=== PATIENT | male | born 1960 | race African-American/Black ===

== ENCOUNTER 2017-12-22 15:14 | Inpatient (IN) | payer OTHER ==
[2017-12-22 15:53] LABS: Arterial Blood Carboxyhemoglob 2.1 % (0-1.5); Blood Gas Oxyhemoglobin 93.4 % (94-97); Blood O2 Saturation 96.3 % (92-98.5)
[2017-12-22] MEDS ORDERED: NA CHLORIDE 0.9% 3,000 ML ONE (15:53)
--- NOTE | 2017-12-22 16:10 | RAD REPORT ---
EXAM DESCRIPTION: RAD - Chest Single View - 12/22/2017 3:58 pm CLINICAL HISTORY: Hypertension, tachycardia, possible sepsis COMPARISON: May 2010 TECHNIQUE: AP portable chest image was obtained 1547 hours . FINDINGS: Lung volumes are low. Significant failure or volume overload are doubtful. Left hemidiaphr agm elevation and costophrenic angle blunting are stable findings. An acute pneumonia is not suspecte d. Heart and vasculature are normal. No measurable pleural effusion and no pneumothorax. No gross bon y abnormality seen. No acute aortic findings suspected. IMPRESSION: No acute cardiopulmonary process. No significant change from comparison.
[2017-12-22 16:12] LABS: Absolute Lymphocytes (CBC) 0.8 K/uL (0.7-4.9); Absolute Monocytes 2.5 K/uL (0.1-1.3); Absolute Neutrophil 17.4 K/uL (1.8-8.0); Basophils % 0.3 % (0-1.3); Hematocrit 35.9 % (39.6-49.0); MCH 28.6 pg (27.0-35.0); MCV 85.9 fL (80-100); MPV 9.8 fL (7.6-11.3); Monocytes % 12.1 % (3.3-12.3); RBC Red Blood Cell Count 4.18 M/uL (4.33-5.43)
[2017-12-22 16:17] LABS: Protime INR 1.6
[2017-12-22 16:24] LABS: Bicarbonate 23 mEq/L (21-31); Glucose Level 243 mg/dL (65-120); Lipase 26 U/L (22-51); Potassium 3.2 mEq/L (3.6-5.0); Sodium Level 129 mEq/L (135-145)
--- NOTE | 2017-12-22 16:31 | ER ---
Nurse's Notes [facility] Name: Froy Hatfield Age: 57 yrs Sex: Male : 1960 Arrival Date: 12/22/2017 Time: 15:18 Bed 28 Private MD: Diagnosis: Sepsis, unspecified organism Presentation: 12/22 15:23 Presenting complaint: Patient states: Dr. Barry sent us over here for high blood tw2 sugar and high heart rate. Transition of care: patient was not received from another setting of care. Onset of symptoms was December 22, 2017. Risk Assessment: Do you want to hurt yourself or someone else? Patient reports no desire to harm self or others. Initial Sepsis Screen: Does the patient meet any 2 criteria? No. Patient's initial sepsis screen is negative. Does the patient have a suspected source of infection? No. Patient's initial sepsis screen is negative. Care prior to arrival: None. 15:23 Method Of Arrival: Wheelchair tw2 15:23 Acuity: JO 2 iw Historical: - Allergies: 15:26 No Known Allergies; tw2 - Home Meds: 15:26 Januvia 50 mg oral tab 2 tabs once daily [Active]; metformin 500 mg Oral tab 1 tab 2 tw2 times per day [Active]; aspirin 81 mg Oral chew 1 tab once daily [Active]; carvedilol 12.5 mg oral tab 1 tab 2 times per day [Active]; Actoplus MET 15-850 mg oral tab 1 tab once daily [Active]; - PMHx: 15:26 Diabetes - IDDM; Hypertension; tw2 - Immunization history:: Adult Immunizations up to date. - Social history:: Smoking status: Patient/guardian denies using tobacco. - Ebola Screening: : Patient negative for fever greater than or equal to 101.5 degrees Fahrenheit, and additional compatible Ebola Virus Disease symptoms. Screenin:17 Abuse screen: Denies threats or abuse. Nutritional screening: No deficits noted. mb3 Tuberculosis screening: No symptoms or risk factors identified. Fall Risk No fall in past 12 months (0 pts). Secondary diagnosis (15 points) IV access (20 points). Ambulatory Aid- None/Bed Rest/Nurse Assist (0 pts). Gait- Impaired (20 pts.). Mental Status- Oriented to own ability (0 pts). Total Ahumada Fall Scale indicates Low Risk Score (25-44 pts). Fall prevention measures have been instituted. Side Rails Up X 2 Placed close to Nursing Station Frequent Obs/Assesments occuring. Assessment: 16:04 General: Appears uncomfortable, obese, unkempt, Behavior is calm, cooperative, mb3 appropriate for age. Pain: Denies pain. Neuro: Level of Consciousness is awake, alert, obeys commands, Oriented to person, place, time, situation, Chain Hoist Operator are weak on left left sided weakness from previous cva. Cardiovascular: Heart tones present Capillary refill < 3 seconds Pulses are all present. are 2+ in right radial artery, right dorsalis pedis artery, left radial artery and left dorsalis pedis artery Rhythm is sinus tachycardia Chest pain is denied. Respiratory: Airway is patent Respiratory effort is even, unlabored, Respiratory pattern is regular, symmetrical, Breath sounds are clear bilaterally. GI: Abdomen is round obese, Bowel sounds present X 4 quads. hypoactive in right upper quadrant, left upper quadrant, right lower quadrant and left lower quadrant. GI: Reports nausea. : Reports urgency. EENT: No signs and/or symptoms were reported regarding the EENT system. Derm: Skin is intact, Skin is dry, Skin temperature is hot. Musculoskeletal: limited rom to left side, arm and leg from previous cva, is wheelchair bound. 16:29 Reassessment: No changes from previously documented assessment. Patient and/or family mb3 updated on plan of care and expected duration. Pain level reassessed. Patient is alert, oriented x 3, equal unlabored respirations, skin warm/dry/pink. 17:43 Reassessment: No changes from previously documented assessment. Patient and/or family mb3 updated on plan of care and expected duration. Pain level reassessed. Patient is alert, oriented x 3, equal unlabored respirations, skin warm/dry/pink. 19:30 Reassessment: Patient appears in no apparent distress at this time. Patient and/or mb3 family updated on plan of care and expected duration. Pain level reassessed. Patient is alert, oriented x 3, equal unlabored respirations, skin warm/dry/pink. Patient denies pain at this time. Patient states feeling better. Patient states symptoms have improved. 20:09 Reassessment: Attempted to call Adam Arita at [phone], she is his mb3 caregiver, left her a message to call me in the ER. Vital Signs: 15:22 BP 95 / 59; Pulse 153; Resp 18; Temp 97.3(O); Pulse Ox 96% on R/A; Weight 104.33 kg; tw2 Height 5 ft. 8 in. (172.72 cm); Pain 0/10; 16:29 BP 141 / 78; Pulse 126; Resp 20; Pulse Ox 97% on R/A; mb3 17:00 BP 148 / 95; Pulse 119; Resp 20; Pulse Ox 100% on R/A; mb3 19:27 BP 146 / 82; Pulse 121; Resp 26; Pulse Ox 97% on R/A; mb3 15:22 Body Mass Index 34.97 (104.33 kg, 172.72 cm) tw2 ED Course: 15:18 Patient arrived in ED. rg4 15:22 Arm band placed on. tw2 15:24 Triage completed. tw2 15:34 Aile[facility] Stanley [facility]C [facility]. snw 15:34 Nash Dsouza MD is Attending Physician. snw 15:36 EKG done, by internal medicine veterinary technician. reviewed by Nash Dsuoza MD. sm3 15:42 Inserted saline lock: 18 gauge in left forearm, using aseptic technique. mb3 15:46 Ji Parrish, RN is Primary Nurse. mb3 15:55 Chest Single View XRAY In Process Unspecified. EDMS 15:55 X-ray completed. Portable x-ray completed in exam room. Patient tolerated procedure jb2 well. 16:18 Patient has correct armband on for positive identification. Placed in gown. Bed in low mb3 position. Call light in reach. Side rails up X 1. 16:29 Yudy Marcos MD is Hospitalizing Provider. snw 19:25 Repositioned patient. Bath given. Cleaned of incontinence. Linen changed. mb3 20:10 No provider procedures requiring assistance completed. Patient admitted, IV remains in mb3 place. Administered Medications: 16:01 Drug: NS 0.9% (30 ml/kg) 30 ml/kg Route: IV; Rate: bolus; Site: left forearm; mb3 20:20 Follow up: Response: No adverse reaction; IV Status: Completed infusion; IV Intake: mb3 3100ml 16:57 Drug: LevaQUIN 750 mg Volume: 150 ml; Route: IVPB; Infused Over: 90 mins; Site: left mb3 forearm; 20:20 Follow up: Response: No adverse reaction; IV Status: Completed infusion; IV Intake: mb3 150ml Point of Care Testing: Blood Glucose: 15:51 Blood Glucose: 234 mg/dL; mb3 Ranges: Intake: 20:20 IV: 150ml; Total: 150ml. mb3 20:20 IV: 3100ml; Total: 3250ml. mb3 Outcome: 16:30 Decision to Hospitalize by Provider. snw 20:08 Admitted to Tele accompanied by tech, via stretcher, room 431, with chart, Report mb3 called to Edith Serrato RN 20:08 Condition: stable 20:08 Instructed on the need for admit. 20:24 Patient left the ED. mb3 Signatures: Dispatcher [employer] EDMS Aileen Stanley, FEATHER DUSTER WINDER-C FEATHER DUSTER WINDER-Csnw Mau Bowman jb2 Alexia Nguyen, RN RN iw Senait Manuel RN RN lala2 Renita Bright rg4 Ji Parrish RN RN mb3 Patricia Sanodval 3 Corrections: (The following items were deleted from the chart) 15:43 15:23 Acuity: JO 3 tw2 tien
--- NOTE | 2017-12-22 16:31 | EDPHYS ---
Physician Documentation [facility] Name: Froy Hatfield Age: 57 yrs Sex: Male : 1960 Arrival Date: 12/22/2017 Time: 15:18 Bed 28 Private MD: ED Physician Nash Dsouza HPI: 12/22 15:52 This 57 yrs old Black Male presents to ER via Wheelchair with complaints of High Blood snw Sugar. 15:52 The patient or guardian reports generalized fatigue, generalized weakness, polyuria, snw that was potentially precipitated by no particular event. Onset: The symptoms/episode began/occurred suddenly, and became persistent. Current symptoms: In the emergency department the patient's symptoms are unchanged from the initial presentation. It is unknown whether or not the patient has had similar symptoms in the past. The patient has been recently seen by a physician: the patient's primary care provider, with similar presenting complaints, and was sent to the [facility] Emergency Department for further evaluation. Historical: - Allergies: 15:26 No Known Allergies; tw2 - Home Meds: 15:26 Januvia 50 mg oral tab 2 tabs once daily [Active]; metformin 500 mg Oral tab 1 tab 2 tw2 times per day [Active]; aspirin 81 mg Oral chew 1 tab once daily [Active]; carvedilol 12.5 mg oral tab 1 tab 2 times per day [Active]; Actoplus MET 15-850 mg oral tab 1 tab once daily [Active]; - PMHx: 15:26 Diabetes - IDDM; Hypertension; tw2 - Immunization history:: Adult Immunizations up to date. - Social history:: Smoking status: Patient/guardian denies using tobacco. - Ebola Screening: : Patient negative for fever greater than or equal to 101.5 degrees Fahrenheit, and additional compatible Ebola Virus Disease symptoms. ROS: 15:51 Eyes: Negative for injury, pain, redness, and discharge, ENT: Negative for injury, snw pain, and discharge, Neck: Negative for injury, pain, and swelling, Cardiovascular: Negative for chest pain, palpitations, and edema, Respiratory: Negative for shortness of breath, cough, wheezing, and pleuritic chest pain, Abdomen/GI: Negative for abdominal pain, nausea, vomiting, diarrhea, and constipation, Back: Negative for injury and pain, MS/Extremity: Negative for injury and deformity, Skin: Negative for injury, rash, and discoloration, Neuro: Negative for headache, weakness, numbness, tingling, and seizure. 15:51 Constitutional: Positive for malaise. 15:51 : Positive for urinary symptoms. Exam: 15:49 Neck: Trachea midline, no thyromegaly or masses palpated, and no cervical snw lymphadenopathy. Supple, full range of motion without nuchal rigidity, or vertebral point tenderness. No Meningismus. Chest/axilla: Normal chest wall appearance and motion. Nontender with no deformity. No lesions are appreciated. Respiratory: Lungs have equal breath sounds bilaterally, clear to auscultation and percussion. No rales, rhonchi or wheezes noted. No increased work of breathing, no retractions or nasal flaring. Abdomen/GI: Soft, non-tender, with normal bowel sounds. No distension or tympany. No guarding or rebound. No evidence of tenderness throughout. Back: No spinal tenderness. No costovertebral tenderness. Full range of motion. Skin: Warm, dry with normal turgor. Normal color with no rashes, no lesions, and no evidence of cellulitis. MS/ Extremity: Pulses equal, no cyanosis. Neurovascular intact. Full, normal range of motion. Neuro: Awake and alert, GCS 15, oriented to person, place, time, and situation. Cranial nerves II-XII grossly intact. Motor strength 5/5 in all extremities. Sensory grossly intact. Cerebellar exam normal. Normal gait. 15:49 Constitutional: The patient appears alert, anxious, obese, uncomfortable. 15:49 Head/face: Noted is hx of right CVA 2012, + facial droop. 15:49 Eyes: Lids and lashes: ptosis, of the left eye. 15:49 Cardiovascular: Rate: tachycardic, Heart sounds: normal. Vital Signs: 15:22 BP 95 / 59; Pulse 153; Resp 18; Temp 97.3(O); Pulse Ox 96% on R/A; Weight 104.33 kg; tw2 Height 5 ft. 8 in. (172.72 cm); Pain 0/10; 16:29 BP 141 / 78; Pulse 126; Resp 20; Pulse Ox 97% on R/A; mb3 17:00 BP 148 / 95; Pulse 119; Resp 20; Pulse Ox 100% on R/A; mb3 19:27 BP 146 / 82; Pulse 121; Resp 26; Pulse Ox 97% on R/A; mb3 15:22 Body Mass Index 34.97 (104.33 kg, 172.72 cm) tw2 MDM: 15:34 Patient medically screened. snw 16:30 Data reviewed: vital signs, nurses notes. Data interpreted: Pulse oximetry: on room air snw is 97 %. Interpretation: normal. Counseling: I had a detailed discussion with the patient and/or guardian regarding: the historical points, exam findings, and any diagnostic results supporting the discharge/admit diagnosis, the presence of at least one elevated blood pressure reading (>120/80) during this emergency department visit, lab results, radiology results, the need for further work-up and treatment in the hospital. Physician consultation: Yudy Marcos MD was called at 16:32, was contacted at 16:32, regarding admission, to the telemetry unit. patient's condition. 12/22 15:37 Order name: ABG; Complete Time: 17:22 snw 12/22 15:37 Order name: Basic Metabolic Panel snw 12/22 15:37 Order name: Blood Culture Adult (2) snw 12/22 15:37 Order name: BNP; Complete Time: 16:33 snw 12/22 15:37 Order name: C-Reactive Protein; Complete Time: 17:22 snw 12/22 15:37 Order name: CBC with Diff; Complete Time: 16:56 snw 12/22 15:37 Order name: Ckmb; Complete Time: 17:22 snw 12/22 15:37 Order name: CPK; Complete Time: 17:22 snw 12/22 15:37 Order name: Lactate; Complete Time: 16:33 snw 12/22 15:37 Order name: LFT's; Complete Time: 17:22 snw 12/22 15:37 Order name: Lipase; Complete Time: 17:22 snw 12/22 15:37 Order name: Procalcitonin; Complete Time: 17:22 snw 12/22 15:37 Order name: Protime (+inr); Complete Time: 16:33 snw 12/22 15:37 Order name: Ptt, Activated; Complete Time: 16:33 snw 12/22 15:37 Order name: Sed Rate; Complete Time: 16:56 snw 12/22 15:37 Order name: Troponin (emerg Dept Use Only); Complete Time: 16:33 snw 12/22 15:37 Order name: Chest Single View XRAY; Complete Time: 16:11 snw 12/22 15:37 Order name: Accucheck; Complete Time: 15:47 snw 12/22 15:37 Order name: Cardiac monitoring; Complete Time: 15:47 snw 12/22 15:37 Order name: EKG - Nurse/Tech; Complete Time: 17:40 snw 12/22 15:37 Order name: IV Saline Lock - Large Bore; Complete Time: 15:47 snw 12/22 15:37 Order name: Labs collected and sent; Complete Time: 15:47 snw 12/22 15:37 Order name: Basic Metabolic Panel; Complete Time: 17:22 EDMS 12/22 16:22 Order name: EKG; Complete Time: 16:23 iw 12/22 16:33 Order name: Urine Culture [facility] 12/22 17:09 Order name: Urine Dipstick--Ancillary (enter results) 12/22 17:16 Order name: Urine Dipstick-Ancillary; Complete Time: 17:22 EDMS 12/22 19:29 Order name: Lactate Sepsis 2 HR Follow-up; Complete Time: 19:30 EDMS 12/22 15:37 Order name: O2 Per Protocol; Complete Time: 15:47 snw 12/22 15:37 Order name: O2 Sat Monitoring; Complete Time: 15:48 snw 12/22 15:37 Order name: Urine Dipstick-Ancillary (obtain specimen) [facility] Administered Medications: 16:01 Drug: NS 0.9% (30 ml/kg) 30 ml/kg Route: IV; Rate: bolus; Site: left forearm; mb3 20:20 Follow up: Response: No adverse reaction; IV Status: Completed infusion; IV Intake: mb3 3100ml 16:57 Drug: LevaQUIN 750 mg Volume: 150 ml; Route: IVPB; Infused Over: 90 mins; Site: left mb3 forearm; 20:20 Follow up: Response: No adverse reaction; IV Status: Completed infusion; IV Intake: mb3 150ml Point of Care Testing: Blood Glucose: 15:51 Blood Glucose: 234 mg/dL; mb3 Ranges: Critical Glucose Levels:Adult <50 mg/dl or >400 mg/dl <40 mg/dl or >180 mg/dl Disposition: 12/23 07:07 Co-signature as Attending Physician, Nash Dsouza MD. Chart complete. rn Disposition: 12/22/17 16:30 Hospitalization ordered by Yudy Marcos for Inpatient Admission. Preliminary diagnosis is Sepsis, unspecified organism. - Bed requested for Telemetry/MedSurg (Inpatient). - Status is Inpatient Admission. mb3 - Condition is Fair. - Problem is new. - Symptoms are unchanged. UTI on Admission? Yes Signatures: Dispatcher [employer] EDMS markel Margaret bd Aileen Stanley, ISO COORDINATOR-C ISO COORDINATOR-Csnw Nash Dsouza MD MD rn Wise, Tara, RN RN 2 Ji Parrish RN RN 3 Corrections: (The following items were deleted from the chart) 12/22 18:17 16:30 Hospitalization Ordered by Yudy Marcos MD for Inpatient Admission. Preliminary bd diagnosis is Sepsis, unspecified organism. Bed requested for Telemetry/MedSurg (Inpatient). Status is Inpatient Admission. Condition is Fair. Problem is new. Symptoms are unchanged. UTI on Admission? Yes. snw 20:24 18:17 12/22/2017 16:30 Hospitalization Ordered by Yudy Marcos MD for Inpatient mb3 Admission. Preliminary diagnosis is Sepsis, unspecified organism. Bed requested for Telemetry/MedSurg (Inpatient). Status is Inpatient Admission. Condition is Fair. Problem is new. Symptoms are unchanged. UTI on Admission? Yes. bd
[2017-12-22 16:33] LABS: ALT/SGPT 18 IU/L (10-60); AST/SGOT 24 IU/L (10-42); Albumin 3.6 g/dL (3.2-5.5); Alkaline Phosphatase 84 IU/L (42-121); BUN Blood Urea Nitrogen 14 mg/dL (6-20); Bilirubin Direct 0.6 mg/dL (0-0.2); Bilirubin Total 2.7 mg/dL (0.3-1.2); CKMB Creatine Kinase MB 2.3 ng/ml (0.3-4.0); Creatine Phosphokinase 97 IU/L (22-269)
[2017-12-22] MEDS ORDERED: Levofloxacin 750mg IV 750 MG/150 ML BAG IV ONE (16:54)
[2017-12-22 16:59] LABS: C-Reactive Protein 289.8 mg/L (<10.0)
[2017-12-22 17:15] LABS: Urine Blood 2+ (NEG); Urine Glucose NEGATIVE (NEG); Urine Protein NEGATIVE (NEG); Urine Specific Gravity <1.005 (1.005-1.030); Urine pH 5.5 (5.0-7.0)
--- NOTE | 2017-12-22 17:25 | P.HP ---
Certification for Inpatient Patient admitted to: Inpatient With expected LOS: >2 Midnights Patient will require the following post-hospital care: None Practitioner: I am a practitioner with admitting privileges, knowledge of patient current condition, hospital course, and medical plan of care. Services: Services provided to patient in accordance with Admission requirements found in Title 42 Section 412.3 of the Code of Federal Regulations Patient History Date of Service: 12/22/17 Primary Care Provider: Dr Barry Reason for admission: Sepsis History of Present Illness: This is a 57-year-old male with significant past medical history of hypertension , diabetes, CVA in 2010 with left-sided weakness who went to his primary care provider as he was having some nausea and abdominal pain. At the primary care provider's office patient was found to have a blood sugar level of over 500 and thus was sent over to the ER to get further evaluated for possible DKA. In the ER patient had lab work done and was found to have blood sugar of 278 with an anion gap of 12. However patient was also found to have elevated WBC and urinary frequency and burning on questions. Patient stated that his symptoms started about 2-3 days ago and he has been not feeling well overall. Patient denies having any fever chills shortness of breath or chest pain at this time. Patient is very emotional about being admitted to the hospital and states that he would like to be discharged as soon as he is ready to go. In the ER patient was found to have sepsis with unknown source most likely secondary to UTI. Medicine team was then consulted to admit the patient for further care. Allergies No Known Allergies Allergy (Verified 11/03/16 11:26) Home Medications: Atorvastatin Calcium [Lipitor] 20 mg PO BEDTIME 11/03/16 Carvedilol [Coreg] 6.25 mg PO BID 11/03/16 Lisinopril [Prinivil] 10 mg PO DAILY 11/03/16 Nepafenac [Ilevro] 1.7 ml OP DAILY 11/03/16 Sitagliptin Phosphate [Januvia] 100 mg PO DAILY 11/03/16 Physical Examination - Physical Exam General: Alert, In no apparent distress, Oriented x3 HEENT: Atraumatic, Other (facial Droop), EOMI Neck: Supple Respiratory: Clear to auscultation bilaterally, Normal air movement Cardiovascular: Regular rate/rhythm, Normal S1 S2 Gastrointestinal: Normal bowel sounds, Soft and benign, Non-distended, No tenderness Musculoskeletal: Other (Left sided Weakness on Upper and lower Extermites) Integumentary: No rashes Neurological: Normal speech, Abnormal gait (Uses Wheelchair), Abnormal strength , Abnormal tone Lymphatics: No axilla or inguinal lymphadenopathy - Studies Laboratory Data (last 24 hrs) 12/22/17 15:42: PT 19.0 H, INR 1.60, APTT 30.3 12/22/17 15:42: WBC 20.9 H*, Hgb 11.9 L, Hct 35.9 L, Plt Count 166 12/22/17 15:42: B-Natriuretic Peptide 98 12/22/17 15:42: Sodium 129 L, Potassium 3.2 L, BUN 14, Creatinine 1.03, Glucose 243 H, Total Bilirubin 2.7 H, AST 24, ALT 18, Alkaline Phosphatase 84, Lipase 26 Assessment and Plan - Problems (Diagnosis) (1) Sepsis Current Visit: Yes Status: Acute Plan: Sepsis with Elevated lactacte, HR and WBC with unknown Source. DDX UTI vs bactermia -IV vanc and zosyn for now -IV fluids -Culture pending will f/u Qualifiers: Sepsis type: sepsis due to unspecified organism Qualified Code(s): A41.9 - Sepsis, unspecified organism (2) UTI (urinary tract infection) Current Visit: Yes Status: Acute Plan: UA with + LE -urine Culture pending -IV vanc and zosyn Qualifiers: Urinary tract infection type: site unspecified Hematuria presence: without hematuria Qualified Code(s): N39.0 - Urinary tract infection, site not specified (3) Hyponatremia Current Visit: Yes Status: Acute (4) HTN (hypertension) Current Visit: Yes Status: Chronic Plan: Restart Home medication Qualifiers: Hypertension type: essential hypertension Qualified Code(s): I10 - Essential (primary) hypertension (5) Diabetes Current Visit: Yes Status: Chronic Plan: ISS -Presented with elevated BS but BS now to 275. Anion gap is 12. No DKA Qualifiers: Diabetes mellitus type: type 2 Diabetes mellitus long term care pharmacist insulin use: without long term care pharmacist use Diabetes mellitus complication status: with circulatory complication Diabetes mellitus complication detail: with other circulatory complications Qualified Code(s): E11.59 - Type 2 diabetes mellitus with other circulatory complications (6) CVA (cerebral vascular accident) Current Visit: Yes Status: Acute Plan: Right Sided CVA in 2010 with left sided deficit -Stable for now -Uses Wheelchair Qualifiers: Precerebral and cerebral artery: unspecified precerebral artery Qualified Code(s): I63.10 - Cerebral infarction due to embolism of unspecified precerebral artery - Advance Directives Does patient have a Living Will: Yes Does patient have a Durable POA for Healthcare: No
--- NOTE | 2017-12-22 18:34 | EKG ---
Test Date: 2017-12-22 Test Time: 15:36:55 Clinical Research Physician: BINU MEASUREMENT RESULTS: Intervals: Rate: 147 MT: 120 QRSD: 92 QT: 288 QTc: 450 [place]: P: 50 MT: 120 QRS: 10 T: 143 INTERPRETIVE STATEMENTS: Sinus tachycardia Possible Left atrial enlargement Left ventricular hypertrophy with repolarization abnormality Abnormal ECG Compared to ECG 04/26/2013 10:10:34 Early repolarization now present Sinus rhythm no longer present T-wave abnormality no longer present Electronically Signed On 12-22-17 18:33:16 CDT by Connor Rivera
[2017-12-22] MEDS ORDERED: D50W 25 GM/50 ML SYRINGE IV PRN (20:41)
[2017-12-22] MEDS: VANCOMYCIN 1.75 GM in NA CHLORIDE 0.9% 500 ML IVPB SCH (20:41)
[2017-12-22] MEDS ORDERED: ONDANSETRON 4 MG/2 ML VIAL IV PRN (20:41)
[2017-12-22] MEDS: PIPER/TAZO/NS 3.375gm 3.375 GM/100 ML BAG IVPB SCH (20:41)
[2017-12-22] MEDS ORDERED: ACETAMINOPHEN 500 MG TAB PO PRN (20:41)
[2017-12-22] MEDS ORDERED: GLUCAGON 1 MG/VIAL IM PRN (20:41)
[2017-12-22] MEDS: INSULIN -REGULAR HUMAN 50 UNIT/0.5 ML ML SQ SCH (21:00)
[2017-12-22] MEDS ORDERED: VANCOMYCIN 1 GM/VIAL ONE (22:39)
[2017-12-22] MEDS ORDERED: VANCOMYCIN 500 MG/VIAL ONE (22:40)
[2017-12-22] MEDS ORDERED: NA CHLORIDE 0.9% 500 ML ONE (22:41)
[2017-12-22] MEDS: NA CHLORIDE 0.9% 1,000 ML IV SCH (22:53)
[2017-12-23] MEDS ORDERED: NA CHLORIDE 0.9% 250 ML IV PRN ×2 (00:52→01:42)
[2017-12-23] MEDS ORDERED: NA CHLORIDE 0.9% 250 ML IV ONE (01:07)
[2017-12-23] MEDS ORDERED: PIPER/TAZO/NS 3.375gm 3.375 GM/100 ML BAG ONE (02:52)
[2017-12-23] MEDS: PIPER/TAZO/NS 3.375gm 3.375 GM/100 ML BAG IVPB SCH ×3 (03:08→19:01)
[2017-12-23 04:45] LABS: Absolute Monocytes 1.6 K/uL (0.1-1.3); Absolute Neutrophil 13.1 K/uL (1.8-8.0); Basophils % 0.2 % (0-1.3); Eosinophils % 0.3 % (0-4.4); Hematocrit 31.1 % (39.6-49.0); Lymphocytes % 6.6 % (15.3-44.8); MCH 28.7 pg (27.0-35.0); MCV 87.2 fL (80-100); MPV 9.7 fL (7.6-11.3); Monocytes % 10.3 % (3.3-12.3); RBC Red Blood Cell Count 3.57 M/uL (4.33-5.43)
[2017-12-23 05:04] LABS: ALT/SGPT 16 IU/L (10-60); AST/SGOT 16 IU/L (10-42); Albumin 3.1 g/dL (3.2-5.5); Alkaline Phosphatase 86 IU/L (42-121); Bicarbonate 26 mEq/L (21-31); Potassium 3.3 mEq/L (3.6-5.0); Protein, Total 6.9 g/dL (6.0-8.3); Sodium Level 134 mEq/L (135-145)
[2017-12-23 05:05] LABS: BUN Blood Urea Nitrogen 13 mg/dL (6-20); Bilirubin Total 2.4 mg/dL (0.3-1.2); Glucose Level 175 mg/dL (65-120); Phosphorus 1.5 mg/dL (2.5-4.3)
[2017-12-23 05:33] LABS: Magnesium 1.4 mg/dL (1.8-2.5)
[2017-12-23] MEDS ORDERED: MAGNESIUM 50% 3 GM in NA CHLORIDE 0.9% 100 ML IV ONE (05:52)
[2017-12-23] MEDS ORDERED: POTASSIUM 25 MEQ EFFERV TAB PO ONE (05:57)
[2017-12-23] MEDS: NA CHLORIDE 0.9% 1,000 ML IV SCH ×3 (06:41→16:41)
[2017-12-23] MEDS: POTASS/SODIUM PHOSPHATE 1 PKT POWD.PACK PO SCH ×3 (06:43→13:14)
[2017-12-23] MEDS: INSULIN -REGULAR HUMAN 50 UNIT/0.5 ML ML SQ SCH ×4 (07:30→22:10)
[2017-12-23 07:32] VITALS: BMI 32.7
[2017-12-23] MEDS: VANCOMYCIN 1.75 GM in NA CHLORIDE 0.9% 500 ML IVPB SCH ×3 (08:41→22:11)
[2017-12-23] MEDS: ENOXAPARIN 40 MG/0.4 ML SQ SCH (10:23)
--- NOTE | 2017-12-23 12:13 | P.PN ---
Subjective Date of Service: 12/23/17 Primary Care Provider: Dr Barry Chief Complaint: Sepsis Patient seen and examined at bedside with RN. Chart reviewed. Case discussed with family and RN at bedside. Currently patient has no complaints to offer states that he feels much better than before. Review of Systems General: As per HPI Physical Examination - Vital Signs Temperature: 99.2 F Blood Pressure: 137/64 Pulse: 112 Respirations: 18 Pulse Ox (%): 97 - Physical Exam General: Alert, In no apparent distress, Oriented x3 HEENT: Atraumatic Neck: Supple Respiratory: Clear to auscultation bilaterally, Normal air movement Cardiovascular: Regular rate/rhythm, Normal S1 S2 Gastrointestinal: Normal bowel sounds, Soft and benign, Non-distended Musculoskeletal: Other (left sided Weakness from prior stroke) Integumentary: No rashes, Diabetic ulcer Neurological: Normal speech, Abnormal gait, Abnormal strength, Abnormal tone - Studies Laboratory Data (last 24 hrs) 12/22/17 15:42: PT 19.0 H, INR 1.60, APTT 30.3 12/22/17 15:42: WBC 20.9 H*, Hgb 11.9 L, Hct 35.9 L, Plt Count 166 12/22/17 15:42: B-Natriuretic Peptide 98 12/22/17 15:42: Sodium 129 L, Potassium 3.2 L, BUN 14, Creatinine 1.03, Glucose 243 H, Total Bilirubin 2.7 H, AST 24, ALT 18, Alkaline Phosphatase 84, Lipase 26 Assessment & Plan - Problems (Diagnosis) (1) Sepsis Onset Date: 12/23/17 Current Visit: Yes Status: Acute Plan: Sepsis with Elevated lactacte, HR and WBC with unknown Source. DDX UTI vs bactermia -IV vanc and zosyn for now -IV fluids -Blood Culture pending will f/u -urine culture + for Gram - rods Qualifiers: Sepsis type: sepsis due to unspecified organism Qualified Code(s): A41.9 - Sepsis, unspecified organism (2) UTI (urinary tract infection) Onset Date: 12/23/17 Current Visit: Yes Status: Acute Plan: UA with + LE -urine Culture + for gram - rods -IV vanc and zosyn Qualifiers: Urinary tract infection type: site unspecified Hematuria presence: without hematuria Qualified Code(s): N39.0 - Urinary tract infection, site not specified (3) Hyponatremia Onset Date: 12/23/17 Current Visit: Yes Status: Acute Plan: Resolved (4) HTN (hypertension) Onset Date: 12/23/17 Current Visit: Yes Status: Chronic Plan: Restart Home medication Qualifiers: Hypertension type: essential hypertension Qualified Code(s): I10 - Essential (primary) hypertension (5) Diabetes Onset Date: 12/23/17 Current Visit: Yes Status: Chronic Plan: ISS -Presented with elevated BS but BS now to 275. Anion gap is 12. 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
[2017-12-23 19:36] LABS: Potassium 3.3 mEq/L (3.6-5.0)
[2017-12-23 19:37] LABS: Magnesium 2.1 mg/dL (1.8-2.5)
[2017-12-23] MEDS ORDERED: ATORVASTATIN 40 MG TAB PO SCH (21:00)
[2017-12-23] MEDS: CARVEDILOL 12.5 MG TAB PO SCH (22:03)
[2017-12-24] MEDS: PIPER/TAZO/NS 3.375gm 3.375 GM/100 ML BAG IVPB SCH ×2 (01:29→09:35)
[2017-12-24] MEDS: NA CHLORIDE 0.9% 1,000 ML IV SCH (01:42)
[2017-12-24 04:26] LABS: Absolute Lymphocytes (CBC) 1.1 K/uL (0.7-4.9); Absolute Monocytes 1.3 K/uL (0.1-1.3); Absolute Neutrophil 8.6 K/uL (1.8-8.0); Basophils % 0.3 % (0-1.3); Lymphocytes % 9.2 % (15.3-44.8); MCH 29.2 pg (27.0-35.0); MCV 86.1 fL (80-100); MPV 9.8 fL (7.6-11.3); Monocytes % 11.1 % (3.3-12.3); RBC Red Blood Cell Count 3.25 M/uL (4.33-5.43)
[2017-12-24 04:41] LABS: ALT/SGPT 22 IU/L (10-60); AST/SGOT 24 IU/L (10-42); Albumin 2.8 g/dL (3.2-5.5); Bicarbonate 26 mEq/L (21-31); Potassium 3.2 mEq/L (3.6-5.0); Protein, Total 6.3 g/dL (6.0-8.3); Sodium Level 137 mEq/L (135-145)
[2017-12-24 04:42] LABS: Alkaline Phosphatase 75 IU/L (42-121); BUN Blood Urea Nitrogen 7 mg/dL (6-20); Bilirubin Total 1.6 mg/dL (0.3-1.2); Glucose Level 144 mg/dL (65-120); Magnesium 1.8 mg/dL (1.8-2.5); Phosphorus 1.8 mg/dL (2.5-4.3)
[2017-12-24] MEDS: INSULIN -REGULAR HUMAN 50 UNIT/0.5 ML ML SQ SCH ×2 (07:30→11:30)
[2017-12-24 08:39] VITALS: BP 158/74; TEMP 99
[2017-12-24] MEDS: CARVEDILOL 12.5 MG TAB PO SCH (08:43)
[2017-12-24] MEDS: ENOXAPARIN 40 MG/0.4 ML SQ SCH (08:44)
[2017-12-24] MEDS ORDERED: LISINOPRIL 20 MG TAB PO SCH (09:00)
[2017-12-24] MEDS ORDERED: MAGNESIUM SULFATE 1 gm IVPB 1 GM/100 ML BAG IV ONE (09:00)
[2017-12-24] MEDS ORDERED: POTASSIUM CL SA 10 MEQ TAB PO ONE (09:00)
[2017-12-24] MEDS ORDERED: ASPIRIN 325 MG TAB PO SCH (09:00)
[2017-12-24] MEDS ORDERED: POTASSIUM PHOS IN 0.9 % NACL 15 MMOL/250 ML BAG IV ONE (10:00)
[2017-12-24] MEDS: VANCOMYCIN 1.75 GM in NA CHLORIDE 0.9% 500 ML IVPB SCH (10:08)
[2017-12-24 10:53] VITALS: O2SAT 97
--- NOTE | 2017-12-24 13:45 | P.DS ---
Admission Date: 12/22/17 Discharge Date: 12/24/17 Primary Care Provider: Dr Barry Disposition: ROUTINE DISCHARGE Discharge Condition: GOOD Reason for Admission: Sepsis Consultations: None - Problems (1) Sepsis Onset Date: 12/23/17 Status: Acute Qualifiers: Sepsis type: sepsis due to unspecified organism Qualified Code(s): A41.9 - Sepsis, unspecified organism (2) UTI (urinary tract infection) Onset Date: 12/23/17 Status: Acute Qualifiers: Urinary tract infection type: site unspecified Hematuria presence: without hematuria Qualified Code(s): N39.0 - Urinary tract infection, site not specified (3) Hyponatremia Onset Date: 12/23/17 Status: Acute (4) HTN (hypertension) Onset Date: 12/23/17 Status: Chronic Qualifiers: Hypertension type: essential hypertension Qualified Code(s): I10 - Essential (primary) hypertension (5) Diabetes Onset Date: 12/23/17 Status: Chronic Qualifiers: Diabetes mellitus type: type 2 Diabetes mellitus penitentiary insulin use: without intermediate designer use Diabetes mellitus complication status: with circulatory complication Diabetes mellitus complication detail: with other circulatory complications Qualified Code(s): E11.59 - Type 2 diabetes mellitus with other circulatory complications (6) CVA (cerebral vascular accident) Onset Date: 12/23/17 Status: Acute Qualifiers: Precerebral and cerebral artery: unspecified precerebral artery Qualified Code(s): I63.10 - Cerebral infarction due to embolism of unspecified precerebral artery Brief History of Present Illness: This is a 57-year-old male with significant past medical history of hypertension , diabetes, CVA in 2010 with left-sided weakness who went to his primary care provider as he was having some nausea and abdominal pain. At the primary care provider's office patient was found to have a blood sugar level of over 500 and thus was sent over to the ER to get further evaluated for possible DKA. In the ER patient had lab work done and was found to have blood sugar of 278 with an anion gap of 12. However patient was also found to have elevated WBC and urinary frequency and burning on questions. Patient stated that his symptoms started about 2-3 days ago and he has been not feeling well overall. Patient denies having any fever chills shortness of breath or chest pain at this time. Patient is very emotional about being admitted to the hospital and states that he would like to be discharged as soon as he is ready to go. In the ER patient was found to have sepsis with unknown source most likely secondary to UTI. Medicine team was then consulted to admit the patient for further care. Hospital Course: Overall during the hospital stay patient remained stable Patient was initially admitted to the hospital for sepsis most likely secondary to urinary tract infection. Patient was initially started on IV vanc and Zosyn. Patient had urine culture done which was positive for E. coli that was sensitive to Augmentin. Patient was switched over to Augmentin. Patient had marked improvement in his symptoms and thus was discharged home under stable condition with a prescription for Augmentin 500 mg to be taken for total 14 days. patient was asked to follow up with her primary care provider in about 1- 2 days post discharge. All other chronic condition remained stable while here in the hospital. Vital Signs/Physical Exam: Temp Pulse Resp BP Pulse Ox 99.0 F 107 H 18 158/74 H 97 12/24/17 08:00 12/24/17 08:43 12/24/17 08:00 12/24/17 08:43 12/24/17 08:00 General: Alert, In no apparent distress HEENT: Atraumatic, PERRLA, EOMI Neck: Supple, JVD not distended Respiratory: Clear to auscultation bilaterally, Normal air movement Cardiovascular: Regular rate/rhythm, Normal S1 S2 Gastrointestinal: Normal bowel sounds, No tenderness Musculoskeletal: No tenderness Integumentary: No rashes Neurological: Normal speech, Normal tone, Normal affect, Other (left sided weakness from previous CVA) Lymphatics: No axilla or inguinal lymphadenopathy Laboratory Data at Discharge: WBC 11.5 K/uL (4.3-10.9) H D 12/24/17 04:11 Hgb 9.5 g/dL (13.6-17.9) L 12/24/17 04:11 Hct 28.0 % (39.6-49.0) L 12/24/17 04:11 Plt Count 131 K/uL (152-406) L 12/24/17 04:11 PT 19.0 SECONDS (9.5-12.5) H 12/22/17 15:42 INR 1.60 12/22/17 15:42 APTT 30.3 SECONDS (24.3-36.9) 12/22/17 15:42 Sodium 137 mEq/L (135-145) 12/24/17 04:11 Potassium 3.2 mEq/L (3.6-5.0) L 12/24/17 04:11 BUN 7 mg/dL (6-20) 12/24/17 04:11 Creatinine 0.62 mg/dL (0.61-1.24) 12/24/17 04:11 Glucose 144 mg/dL (65-120) H 12/24/17 04:11 Phosphorus 1.8 mg/dL (2.5-4.3) L 12/24/17 04:11 Magnesium 1.8 mg/dL (1.8-2.5) 12/24/17 04:11 Total Bilirubin 1.6 mg/dL (0.3-1.2) H 12/24/17 04:11 AST 24 IU/L (10-42) 12/24/17 04:11 ALT 22 IU/L (10-60) 12/24/17 04:11 Alkaline Phosphatase 75 IU/L (42-121) 12/24/17 04:11 B-Natriuretic Peptide 98 pg/ml (<=100) 12/22/17 15:42 Lipase 26 U/L (22-51) 12/22/17 15:42 Home Medications: Atorvastatin Calcium [Lipitor*] 40 mg PO BEDTIME 11/03/16 Carvedilol [Coreg*] 12.5 mg PO BID 11/03/16 Lisinopril [Prinivil*] 40 mg PO DAILY 11/03/16 Sitagliptin Phosphate [Januvia*] 100 mg PO DAILY 11/03/16 Aspirin 325 mg PO DAILY 12/23/17 Pioglitazone HCl/Metformin HCl [Actoplus Met 15 mg-500 mg Tab] 1 tab PO BID Amoxicillin/Potassium Clav [Augmentin 500-125 Tablet] 1 each PO BID #28 tablet 12/24/17 New Medications: Amoxicillin/Potassium Clav [Augmentin 500-125 Tablet] 1 each PO BID #28 tablet Patient Discharge Instructions: Please f/u with PCP. New medication. Augmentin 500mg BID for 14 days Diet: Regular Activity: Ad kristi Followup: Shea Barry MD [OUTSIDE PHYSICIAN] - (call the office to make an appointment in 1 week. )
== END 2017-12-24 11:30 | disposition home or self-care (01) | DRG 872 ==
LOC: ER 15:14 → ERHOLD 16:35 → 4TH 19:37
PROVIDERS: ADMIT Family Medicine; ATTEND Family Medicine
DX: A41.9 Sepsis, unspecified organism (principal); N39.0 Urinary tract infection, site not specified; I69.954 Hemiplegia and hemiparesis following unspecified cerebrovascular disease affecting left non-dominant side; E87.1 Hypo-osmolality and hyponatremia; B96.20 Unspecified Escherichia coli [E. coli] as the cause of diseases classified elsewhere; I10 Essential (primary) hypertension; E11.9 Type 2 diabetes mellitus without complications
CPT/HCPCS: 36415; 71045; 80048; 80053; 80076; 80202; 81003; 82550; 82553; 82805; 82962; 83605; 83690; 83735; 83880; 84100; 84132; 84145; 84484; 85025; 85610; 85652; 85730; 86140; 87040; 87077; 87086; 87088; 87186; 87205; 93005; 96365; 96366; 99285; J1650; J2543; J3475; J7030

== ENCOUNTER 2017-12-27 12:07 | Emergency (ER) | payer OTHER ==
--- NOTE | 2017-12-27 13:55 | ER ---
Nurse's Notes [facility] Name: Froy Htafield Age: 57 yrs Sex: Male : 1960 Arrival Date: 12/27/2017 Time: 12:10 Bed 6 Private MD: Diagnosis: Urinary tract infection, site not specified Presentation: 12/27 12:10 Presenting complaint: EMS states: Home health nurse called due to blood in the urine x2 jl7 days. Transition of care: patient was received from another setting of care (home health care), [facility]. Onset of symptoms Onset of symptoms was December 25, 2017. Risk Assessment: Do you want to hurt yourself or someone else? Patient reports no desire to harm self or others. Initial Sepsis Screen: Does the patient meet any 2 criteria? No. Patient's initial sepsis screen is negative. Does the patient have a suspected source of infection? No. Patient's initial sepsis screen is negative. Care prior to arrival: None. 12:10 Method Of Arrival: EMS: [facility] 12:10 Acuity: JO 3 jl7 Triage Assessment: 12:19 General: Appears in no apparent distress. comfortable, Pt denies discomfort. Behavior jl7 is calm, cooperative, appropriate for age. Pain: Denies pain. EENT: No signs and/or symptoms were reported regarding the EENT system. Neuro: Level of Consciousness is awake, alert, obeys commands, Oriented to person, place, time, situation. Cardiovascular: Patient's skin is warm and dry. Respiratory: Airway is patent Respiratory effort is even, unlabored, Respiratory pattern is regular, symmetrical. GI: No signs and/or symptoms were reported involving the gastrointestinal system. : Reports Blood in urine, denies pain, denies discomfort. Derm: Skin is dry, Skin is normal, Skin temperature is warm. Musculoskeletal: Pt reports left sided weakness due to CVA in 2011. Pt does not walk. Historical: - Allergies: 12:19 No Known Allergies; jl7 - Home Meds: 12:19 Actoplus MET 15-850 mg Oral tab 1 tab once daily [Active]; lisinopril 40 mg Oral tab 1 jl7 tab once daily [Active]; aspirin 325 mg oral TbEC 1 tab once daily [Active]; Januvia 50 mg Oral tab 1 tabs once daily [Active]; atorvastatin 40 mg oral tab 1 tab once daily [Active]; - PMHx: 12:19 Diabetes - IDDM; Hypertension; CVA; jl7 - Immunization history:: Adult Immunizations unknown. - Social history:: Smoking status: Patient/guardian denies using tobacco. - Ebola Screening: : No symptoms or risks identified at this time. Screenin:22 Abuse screen: Denies threats or abuse. Denies injuries from another. Nutritional jl7 screening: No deficits noted. Tuberculosis screening: No symptoms or risk factors identified. Fall Risk No fall in past 12 months (0 pts). Secondary diagnosis (15 points) CVA, No IV (0 pts). Ambulatory Aid- None/Bed Rest/Nurse Assist (0 pts). Gait- Normal/Bed Rest/Wheelchair (0 pts) Mental Status- Oriented to own ability (0 pts). Total Ahumada Fall Scale indicates No Risk (0-24 pts). Assessment: 12:22 General: See triage assessment. jl7 Vital Signs: 12:10 BP 160 / 105; Pulse 100; Resp 18; Temp 98(O); Pulse Ox 100% ; Weight 97.52 kg; Pain jl7 0/10; ED Course: 12:10 Patient arrived in ED. jl7 12:10 Arm band placed on right wrist. jl7 12:12 Wero Houston PA is PHCP. cp 12:12 Mitul Mojica MD is Attending Physician. cp 12:15 Triage completed. jl7 12:22 Patient has correct armband on for positive identification. Bed in low position. Call jl7 light in reach. Side rails up X 1. Pulse ox on. NIBP on. 13:02 Elvin Barrera, LORENA is Primary Nurse. jl7 13:38 Warm blanket given. ae1 14:59 No provider procedures requiring assistance completed. Patient did not have IV access jl7 during this emergency room visit. Administered Medications: No medications were administered Outcome: 13:54 Discharge ordered by . cp 14:59 Discharged to home via ambulance. jl7 14:59 Condition: stable 14:59 Discharge instructions given to patient, Instructed on discharge instructions, follow up and referral plans. Demonstrated understanding of instructions, follow-up care. 15:35 Patient left the ED. jl7 Signatures: Wero Houston PA PA cp Enrique Conteh RN RN ae1 Elvin Barrera RN RN jl7
--- NOTE | 2017-12-27 13:55 | EDPHYS ---
Physician Documentation [facility] Name: Fory Hatfield Age: 57 yrs Sex: Male : 1960 Arrival Date: 12/27/2017 Time: 12:10 Bed 6 Private MD: ED Physician Mitul Mojica HPI: 12/27 12:35 This 57 yrs old Black Male presents to ER via EMS with complaints of Urinary Problem. cp 12:35 Onset: The symptoms/episode began/occurred 2 day(s) ago. cp 12:35 The patient presents with hematuria. cp 12:35 Associated signs and symptoms: Pertinent negatives: abdominal pain, diarrhea, dysuria, cp fever, vomiting. Severity of symptoms: in the emergency department the symptoms are unchanged. Patient referred to ED by home health nurse after noticing blood in urine today. Historical: - Allergies: 12:19 No Known Allergies; jl7 - Home Meds: 12:19 Actoplus MET 15-850 mg Oral tab 1 tab once daily [Active]; lisinopril 40 mg Oral tab 1 jl7 tab once daily [Active]; aspirin 325 mg oral TbEC 1 tab once daily [Active]; Januvia 50 mg Oral tab 1 tabs once daily [Active]; atorvastatin 40 mg oral tab 1 tab once daily [Active]; - PMHx: 12:19 Diabetes - IDDM; Hypertension; CVA; jl7 - Immunization history:: Adult Immunizations unknown. - Social history:: Smoking status: Patient/guardian denies using tobacco. - Ebola Screening: : No symptoms or risks identified at this time. ROS: 12:40 Constitutional: Negative for body aches, chills, fever, poor PO intake. cp 12:40 Eyes: Negative for injury, pain, redness, and discharge. cp 12:40 Cardiovascular: Negative for chest pain, edema, palpitations. 12:40 Respiratory: Negative for cough, shortness of breath, wheezing. 12:40 Abdomen/GI: Negative for abdominal pain, nausea, vomiting, and diarrhea, constipation, black/tarry stool, rectal bleeding. 12:40 : Positive for hematuria, Negative for burning with urination, penile pain, testicular pain 12:40 Skin: Negative for cellulitis, rash. 12:40 Neuro: Negative for altered mental status, headache. 12:40 All other systems are negative. Exam: 12:45 Constitutional: The patient appears in no acute distress, alert, awake, non-toxic, well cp developed, well nourished. 12:45 Head/Face: Normocephalic, atraumatic. cp 12:45 Eyes: Periorbital structures: appear normal, Conjunctiva: normal, no exudate, no injection, Sclera: no appreciated abnormality, Lids and lashes: appear normal, bilaterally. 12:45 ENT: External ear(s): are unremarkable, Nose: is normal, Mouth: Lips: moist, Oral mucosa: moist, Posterior pharynx: is normal, airway is patent, no erythema, no exudate. 12:45 Chest/axilla: Inspection: normal, Palpation: is normal, no crepitus, no tenderness. 12:45 Cardiovascular: Rate: tachycardic, Rhythm: regular. 12:45 Respiratory: the patient does not display signs of respiratory distress, Respirations: normal, no use of accessory muscles, no retractions, no splinting, no tachypnea, labored breathing, is not present, Breath sounds: are clear throughout, no decreased breath sounds, no stridor, no wheezing. 12:45 Abdomen/GI: Inspection: obese Bowel sounds: active, all quadrants, Palpation: abdomen is soft and non-tender, in all quadrants, rebound tenderness, is not appreciated, voluntary guarding, is not appreciated, involuntary guarding, is not appreciated. 12:45 Back: pain, is absent, ROM is normal. 12:45 Skin: cellulitis, is not appreciated, no rash present. Vital Signs: 12:10 BP 160 / 105; Pulse 100; Resp 18; Temp 98(O); Pulse Ox 100% ; Weight 97.52 kg; Pain jl7 0/10; MDM: 12:12 Patient medically screened. cp 13:00 Differential diagnosis: UTI, urinary retention, prostatitis, urethritis, kidney stone. cp 13:51 Data reviewed: vital signs, nurses notes, old medical records, culture results from urine sample on 12-22-2017 that show e. coli infection that is susceptible to Augmentin lab test result(s), urinalysis. 13:51 Counseling: I had a detailed discussion with the patient and/or guardian regarding: the historical points, exam findings, and any diagnostic results supporting the discharge/admit diagnosis, lab results, the need for outpatient follow up, a family practitioner, to return to the emergency department if symptoms worsen or persist or if there are any questions or concerns that arise at home. 13:51 ED course: VSS. Will discharge to home for continued monitoring. cp 12/27 12:36 Order name: Urine Microscopic Only cp 12/27 13:27 Order name: Urine Dipstick--Ancillary (enter results) bd 12/27 12:36 Order name: Urine Dipstick-Ancillary (obtain specimen); Complete Time: 13:02 cp Administered Medications: No medications were administered Disposition: 12/27/17 13:54 Discharged to Home. Impression: Urinary tract infection, site not specified. - Condition is Stable. - Discharge Instructions: Urinary Tract Infection. - Medication Reconciliation Form, Thank You Letter, Antibiotic Education, Prescription Opioid Use form. - Follow up: Private Physician; When: 1 - 2 days; Reason: Recheck today's complaints. - Problem is an ongoing problem. - Symptoms are unchanged. Addendum: 01/04/2018 11:54 Co-signature as Attending Physician, Mitul Mojica MD Available for consultation at p s1 all times. . Signatures: Dispatcher [employer] EDMS Wero Houston PA PA cp Elvin Barrera RN RN jl7 Mitul Mojica MD MD ps1 Corrections: (The following items were deleted from the chart) 12/27 15:35 13:54 12/27/2017 13:54 Discharged to Home. Impression: Urinary tract infection, site jl7 not specified. Condition is Stable. Forms are Medication Reconciliation Form, Thank You Letter, Antibiotic Education, Prescription Opioid Use. Follow up: Private Physician; When: 1 - 2 days; Reason: Recheck today's complaints. Problem is an ongoing problem. Symptoms are unchanged. cp
[2017-12-27 14:12] LABS: Urine Bacteria <20 /HPF (NONE SEEN); Urine Culture Reflex Order NOT NEEDED; Urine RBC <5 /HPF (NONE SEEN)
[2017-12-27 14:12] LABS: Urine Blood TRACE (NEG); Urine Glucose NEGATIVE (NEG); Urine Protein NEGATIVE (NEG); Urine Specific Gravity 1.015 (1.005-1.030); Urine pH 7.5 (5.0-7.0)
[2017-12-27 15:39] VITALS: BP 160/105; TEMP 98; O2SAT 100
== END 2017-12-27 15:35 | disposition home or self-care (01) ==
LOC: ER 12:07
DX: N39.0 Urinary tract infection, site not specified (principal); E11.9 Type 2 diabetes mellitus without complications; I10 Essential (primary) hypertension; Z86.73 Personal history of transient ischemic attack (TIA), and cerebral infarction without residual deficits
CPT/HCPCS: 81003; 81015; 99283

== ENCOUNTER 2018-02-10 13:06 | Emergency (ER) | payer OTHER ==
[2018-02-10 15:09] LABS: Urine Blood TRACE (NEG); Urine Glucose NEGATIVE (NEG); Urine Protein NEGATIVE (NEG)
[2018-02-10 15:14] LABS: Urine Bacteria <20 /HPF (NONE SEEN); Urine Culture Reflex Order REFLEXED; Urine RBC <5 /HPF (NONE SEEN)
[2018-02-10 15:15] LABS: Urine Mucus 1+ /HPF (NONE SEEN); Urine Yeast FEW (NONE SEEN)
--- NOTE | 2018-02-10 15:20 | ER ---
Nurse's Notes [facility] Name: Froy Hatfield Age: 57 yrs Sex: Male : 1960 Arrival Date: 02/10/2018 Time: 13:11 Bed 23 Private MD: Diagnosis: Essential (primary) hypertension;Person with feared health complaint in whom no diagnosis is made Presentation: 02/10 13:25 Presenting complaint: Patient states: PCP office told us to come here to be seen for hj blood pressure problem, 141/110; HR- 115; was told to give sample of pee to R/O UTI too; denies chest pain; denies head ache; denies SOB;. Transition of care: patient was not received from another setting of care. Onset of symptoms was February 10, 2018. Risk Assessment: Do you want to hurt yourself or someone else? Patient reports no desire to harm self or others. Initial Sepsis Screen: Does the patient meet any 2 criteria? No. Patient's initial sepsis screen is negative. Does the patient have a suspected source of infection? No. Patient's initial sepsis screen is negative. Care prior to arrival: None. 13:25 Method Of Arrival: Ambulatory 13:25 Acuity: JO 3 hj Triage Assessment: 13:31 General: Appears in no apparent distress. uncomfortable, Behavior is calm, cooperative, hj appropriate for age. Pain: Denies pain. Historical: - Allergies: 13:30 No Known Allergies; hj - Home Meds: 13:30 Actoplus MET 15-850 mg Oral tab 1 tab once daily [Active]; aspirin 325 mg Oral TbEC 1 hj tab once daily [Active]; atorvastatin 40 mg Oral tab 1 tab once daily [Active]; carvedilol 12.5 mg Oral tab 1 tab 2 times per day [Active]; Januvia 50 mg Oral tab 1 tabs once daily [Active]; lisinopril 40 mg Oral tab 1 tab once daily [Active]; metformin 850 mg oral tab 1 tab daily [Active]; - PMHx: 13:30 CVA; Diabetes - IDDM; Hypertension; hj - PSHx: 13:30 None; hj - Immunization history:: Adult Immunizations up to date. - Social history:: Smoking status: Patient/guardian denies using tobacco, Patient/guardian denies using alcohol. - Ebola Screening: : Patient negative for fever greater than or equal to 101.5 degrees Fahrenheit, and additional compatible Ebola Virus Disease symptoms Patient denies exposure to infectious person Patient denies travel to an Ebola-affected area in the 21 days before illness onset. Screenin:31 Abuse screen: Denies threats or abuse. Denies injuries from another. Nutritional hj screening: No deficits noted. Tuberculosis screening: No symptoms or risk factors identified. Fall Risk None identified. Assessment: 15:00 Reassessment: pt had a bout of high blood pressure over the last two weeks, although it tl3 has been better the last couple of days, sent by PCP for urine check. General: Appears in no apparent distress. comfortable, well groomed, well developed, well nourished, Behavior is calm, cooperative, appropriate for age. Pain: Denies pain. Neuro: Level of Consciousness is awake, alert, obeys commands. Cardiovascular: Patient's skin is warm and dry. Respiratory: Airway is patent Respiratory effort is even, unlabored, Respiratory pattern is regular, symmetrical. GI: No signs and/or symptoms were reported involving the gastrointestinal system. : No signs and/or symptoms were reported regarding the genitourinary system. EENT: No signs and/or symptoms were reported regarding the EENT system. Derm: No signs and/or symptoms reported regarding the dermatologic system. Musculoskeletal: No signs and/or symptoms reported regarding the musculoskeletal system. 15:31 Reassessment: Patient appears in no apparent distress at this time. No changes from tl3 previously documented assessment. Patient and/or family updated on plan of care and expected duration. Pain level reassessed. Patient is alert, oriented x 3, equal unlabored respirations, skin warm/dry/pink. Vital Signs: 13:31 BP 137 / 95; Pulse 98; Resp 18; Temp 98.8(O); Pulse Ox 100% on R/A; Weight 97.52 kg; hj Height 5 ft. 8 in. (172.72 cm); Pain 0/10; 15:00 BP 133 / 88; Pulse 97; Resp 18; Pulse Ox 98% ; tl3 13:31 Body Mass Index 32.69 (97.52 kg, 172.72 cm) ED Course: 13:11 Patient arrived in ED. jb7 13:29 Triage completed. hj 13:31 Arm band placed on right wrist. hj 13:31 Patient has correct armband on for positive identification. Placed in gown. Bed in low hj position. Call light in reach. Side rails up X 1. Adult w/ patient. 14:46 Aileen Stanley F[facility]-C [facility]. snw 14:46 Nash Dsouza MD is Attending Physician. snw 14:47 Niecy Bah, RN is Primary Nurse. tl3 15:00 EKG done, by sterile proc tech. reviewed by Aileen DE LA TORRE. sm3 15:00 No provider procedures requiring assistance completed. Patient did not have IV access tl3 during this emergency room visit. Administered Medications: No medications were administered Outcome: 15:19 Discharge ordered by . snw 15:37 Discharged to home via wheelchair. tl3 15:37 Condition: stable 15:37 Discharge instructions given to patient, family, Instructed on discharge instructions, follow up and referral plans. Demonstrated understanding of instructions, follow-up care. 15:38 Patient left the ED. tl3 Addendum: 02/14/2018 12:06 Addendum: Culture Results: Positive urine culture. Phone call Attempt #1 Pt denies any s s urinary s/s and reports that he is feeling well and plans to follow up with his doctor next week. Signatures: Aileen Stanley FNP-C OIL HEAT TECHNICIAN-Csnw Blanquita Pelletier RN RN Home Capellan RN RN hj Bryant, Jason jb7 Niecy Bah, LORENA RN 3 Patricia Sandoval 3 Corrections: (The following items were deleted from the chart) 02/10 13:33 13:31 Pulse 98bpm; Resp 18bpm; Pulse Ox 100% RA; Temp 98.8F Oral; 97.52 kg; Height 5 hj ft. 8 in.; BMI: 32.6; Pain 0/10; hj
--- NOTE | 2018-02-10 15:20 | EDPHYS ---
Physician Documentation [facility] Name: Froy Hatfield Age: 57 yrs Sex: Male : 1960 Arrival Date: 02/10/2018 Time: 13:11 Bed 23 Private MD: ED Physician Nash Dsouza HPI: 02/10 17:30 This 57 yrs old Black Male presents to ER via Ambulatory with complaints of Blood snw Pressure Problem. 17:30 pt unable to get scheduled exam done today, unable to get appt with PCP. Here for snw evaluation of recent increase in BP, pt is not symptomatic at this time.. Onset: The symptoms/episode began/occurred gradually, and became persistent. Severity of symptoms: At their worst the symptoms were very mild. The patient has experienced a previous episode. has home health nurse. Historical: - Allergies: 13:30 No Known Allergies; hj - Home Meds: 13:30 Actoplus MET 15-850 mg Oral tab 1 tab once daily [Active]; aspirin 325 mg Oral TbEC 1 hj tab once daily [Active]; atorvastatin 40 mg Oral tab 1 tab once daily [Active]; carvedilol 12.5 mg Oral tab 1 tab 2 times per day [Active]; Januvia 50 mg Oral tab 1 tabs once daily [Active]; lisinopril 40 mg Oral tab 1 tab once daily [Active]; metformin 850 mg oral tab 1 tab daily [Active]; - PMHx: 13:30 CVA; Diabetes - IDDM; Hypertension; hj - PSHx: 13:30 None; hj - Immunization history:: Adult Immunizations up to date. - Social history:: Smoking status: Patient/guardian denies using tobacco, Patient/guardian denies using alcohol. - Ebola Screening: : Patient negative for fever greater than or equal to 101.5 degrees Fahrenheit, and additional compatible Ebola Virus Disease symptoms Patient denies exposure to infectious person Patient denies travel to an Ebola-affected area in the 21 days before illness onset. ROS: 17:28 Constitutional: Negative for fever, chills, and weight loss, Eyes: Negative for injury, snw pain, redness, and discharge, ENT: Negative for injury, pain, and discharge, Neck: Negative for injury, pain, and swelling, Cardiovascular: Negative for chest pain, palpitations, and edema, Respiratory: Negative for shortness of breath, cough, wheezing, and pleuritic chest pain, Abdomen/GI: Negative for abdominal pain, nausea, vomiting, diarrhea, and constipation, Back: Negative for injury and pain, : Negative for injury, bleeding, discharge, and swelling, MS/Extremity: Negative for injury and deformity, Skin: Negative for injury, rash, and discoloration, Neuro: Negative for headache, weakness, numbness, tingling, and seizure. Exam: 15:35 Constitutional: This is a well developed, well nourished patient who is awake, alert, snw and in no acute distress. Head/Face: Normocephalic, atraumatic. Eyes: Pupils equal round and reactive to light, extra-ocular motions intact. Lids and lashes normal. Conjunctiva and sclera are non-icteric and not injected. Cornea within normal limits. Periorbital areas with no swelling, redness, or edema. ENT: Nares patent. No nasal discharge, no septal abnormalities noted. Tympanic membranes are normal and external auditory canals are clear. Oropharynx with no redness, swelling, or masses, exudates, or evidence of obstruction, uvula midline. Mucous membranes moist. Neck: Trachea midline, no thyromegaly or masses palpated, and no cervical lymphadenopathy. Supple, full range of motion without nuchal rigidity, or vertebral point tenderness. No Meningismus. Chest/axilla: Normal chest wall appearance and motion. Nontender with no deformity. No lesions are appreciated. Cardiovascular: Regular rate and rhythm with a normal S1 and S2. No gallops, murmurs, or rubs. Normal PMI, no JVD. No pulse deficits. Respiratory: Lungs have equal breath sounds bilaterally, clear to auscultation and percussion. No rales, rhonchi or wheezes noted. No increased work of breathing, no retractions or nasal flaring. Abdomen/GI: Soft, non-tender, with normal bowel sounds. No distension or tympany. No guarding or rebound. No evidence of tenderness throughout. Back: No spinal tenderness. No costovertebral tenderness. Full range of motion. Skin: Warm, dry with normal turgor. Normal color with no rashes, no lesions, and no evidence of cellulitis. MS/ Extremity: Pulses equal, no cyanosis. Neurovascular intact. Full, normal range of motion. no acute changes Neuro: Awake and alert, GCS 15, oriented to person, place, time, and situation. Cranial nerves II-XII grossly intact. Motor strength 5/5 in all extremities. Sensory grossly intact. Cerebellar exam normal. Normal gait. Psych: Awake, alert, with orientation to person, place and time. Behavior, mood, and affect are within normal limits. Vital Signs: 13:31 BP 137 / 95; Pulse 98; Resp 18; Temp 98.8(O); Pulse Ox 100% on R/A; Weight 97.52 kg; hj Height 5 ft. 8 in. (172.72 cm); Pain 0/10; 15:00 BP 133 / 88; Pulse 97; Resp 18; Pulse Ox 98% ; tl3 13:31 Body Mass Index 32.69 (97.52 kg, 172.72 cm) hj MDM: 14:46 Patient medically screened. snw 17:28 Data reviewed: vital signs, nurses notes. Data interpreted: Pulse oximetry: on room air snw is 98 %. Interpretation: normal. Counseling: I had a detailed discussion with the patient and/or guardian regarding: the historical points, exam findings, and any diagnostic results supporting the discharge/admit diagnosis, lab results, the need for outpatient follow up, for definitive care, to return to the emergency department if symptoms worsen or persist or if there are any questions or concerns that arise at home. Special discussion: Based on the history and exam findings, there is no indication for further emergent testing or inpatient evaluation. I discussed with the patient/guardian the need to see the primary care provider for further evaluation of the symptoms. ED course: pt was going to have UA per home health nurse today but she did not come. Pt's BP noted to be elevated x 1 week. Pt called for appt with Dr. Barry (PCP) but was unable to get in today.. 02/10 14:59 Order name: UA MICROSCOPIC; Complete Time: 15:18 tl3 02/10 15:05 Order name: Urine Dipstick--Ancillary (enter results); Complete Time: 15:18 ag 02/10 14:47 Order name: Urine Dipstick-Ancillary (obtain specimen); Complete Time: 14:59 snw 02/10 14:47 Order name: FSBS; Complete Time: 15:38 snw 02/10 14:47 Order name: EKG; Complete Time: 14:47 snw 02/10 15:17 Order name: Urine Culture EDNH 02/10 14:47 Order name: EKG - Nurse/Tech; Complete Time: 15:00 snw Administered Medications: No medications were administered Disposition: 17:36 Co-signature as Attending Physician, Nash Dsouza MD. rn Disposition: 02/10/18 15:19 Discharged to Home. Impression: Essential (primary) hypertension, Person with feared health complaint in whom no diagnosis is made. - Condition is Stable. - Discharge Instructions: Diabetes and Sick Day Management, Hypertension, Managing Your High Blood Pressure. - Medication Reconciliation Form, Thank You Letter, Antibiotic Education, Prescription Opioid Use form. - Follow up: Private Physician; When: 1 - 2 days; Reason: Recheck today's complaints, Continuance of care, Re-evaluation by your physician. Follow up: Emergency Department; When: As needed; Reason: Worsening of condition. Signatures: Dispatcher [employer] [facility] Aileen Stanley, WELLNESS NURSE-C WELLNESS NURSE-Csnw Nash Dsouza MD MD rn Joaquin, Henry, Niecy Costello RN, RN RN tl3 Corrections: (The following items were deleted from the chart) 15:38 15:19 02/10/2018 15:19 Discharged to Home. Impression: Essential (primary) tl3 hypertension; Person with feared health complaint in whom no diagnosis is made. Condition is Stable. Forms are Medication Reconciliation Form, Thank You Letter, Antibiotic Education, Prescription Opioid Use. Follow up: Private Physician; When: 1 - 2 days; Reason: Recheck today's complaints, Continuance of care, Re-evaluation by your physician. Follow up: Emergency Department; When: As needed; Reason: Worsening of condition. snw
--- NOTE | 2018-02-10 15:30 | EKG ---
Test Date: 2018-02-10 Test Time: 14:55:10 Chucker: PRUDENCIO MEASUREMENT RESULTS: Intervals: Rate: 90 VT: 134 QRSD: 102 QT: 354 QTc: 433 [place]: P: 51 VT: 134 QRS: 21 T: 27 INTERPRETIVE STATEMENTS: Normal sinus rhythm with sinus arrhythmia Normal ECG Compared to ECG 12/22/2017 15:36:55 Sinus tachycardia no longer present Left ventricular hypertrophy no longer present Early repolarization no longer present Electronically Signed On 02-10-18 15:30:03 CDT by Herbie Wei
[2018-02-10 16:03] VITALS: TEMP 98.8
[2018-02-10 16:04] VITALS: BP 133/88; O2SAT 98
== END 2018-02-10 15:38 | disposition home or self-care (01) ==
LOC: ER 13:06
DX: I10 Essential (primary) hypertension (principal); E11.9 Type 2 diabetes mellitus without complications; Z79.4 Long term (current) use of insulin; Z86.73 Personal history of transient ischemic attack (TIA), and cerebral infarction without residual deficits
CPT/HCPCS: 81003; 81015; 82962; 87077; 87086; 87088; 87186; 93005; 99283

== ENCOUNTER 2018-07-07 12:11 | Inpatient (IN) | payer OTHER ==
[2018-07-07] MEDS ORDERED: NA CHLORIDE 0.9% 500 ML ONE ×2 (12:31→16:41)
[2018-07-07] MEDS ORDERED: ONDANSETRON 4 MG/2 ML VIAL ONE (12:31)
[2018-07-07 12:36] LABS: Absolute Lymphocytes (CBC) 0.4 K/uL (0.7-4.9); Absolute Monocytes 0.2 K/uL (0.1-1.3); Absolute Neutrophil 10.4 K/uL (1.8-8.0); Basophils % 0.3 % (0-1.3); Eosinophils % 0.1 % (0-4.4); Lymphocytes % 3.9 % (15.3-44.8); MCH 29.1 pg (27.0-35.0); MPV 8.5 fL (7.6-11.3); Monocytes % 1.8 % (3.3-12.3); RBC Red Blood Cell Count 3.68 M/uL (4.33-5.43)
[2018-07-07 12:54] LABS: Blood Morphology Comment NOT SEEN (NOT SEEN); Platelet Estimate ADEQ; Toxic Granulation 1+; Urine White Blood Cell Casts OK
[2018-07-07 12:55] LABS: ALT/SGPT 21 U/L (12-78); AST/SGOT 15 U/L (15-37); Albumin 3.2 g/dL (3.4-5.0); Alkaline Phosphatase 96 U/L (45-117); BUN Blood Urea Nitrogen 13 mg/dL (7-18); Bicarbonate 23 mmol/L (21-32); Bilirubin Direct 0.6 mg/dL (0-0.2); Bilirubin Total 1.6 mg/dL (0.2-1.0); Glucose Level 247 mg/dL (74-106); Lipase 155 U/L (73-393); Potassium 3.3 mmol/L (3.5-5.1); Sodium Level 137 mmol/L (136-145); Troponin (Emerg Dept Use Only) < 0.02 ng/mL (0.0-0.045)
[2018-07-07] MEDS ORDERED: NA CHLORIDE 0.9% 1,000 ML ONE (13:08)
--- NOTE | 2018-07-07 13:45 | RAD REPORT ---
EXAM DESCRIPTION: RAD - Chest Single View - 07/07/2018 12:39 pm CLINICAL HISTORY: Weakness, shortness of breath, palpitations COMPARISON: December 2017 TECHNIQUE: AP portable chest image was obtained 1235 hours . FINDINGS: Lung volumes are relatively low but match the prior study. No mass or consolidations seen. Interstitial markings are minimally increased over the prior study. Minimal stranding at the lateral left base is not clearly different from comparison. Heart and vasculature are normal. No measurable pleural effusion and no pneumothorax. No acute bony abnormality seen. No acute aortic findings suspec anne marie. IMPRESSION: Mild prominence of the interstitial markings when compared to prior study. A mild inters titial edema or infiltrate suspected.
--- NOTE | 2018-07-07 14:45 | RAD REPORT ---
EXAM DESCRIPTION: CT - Abdomen Pelvis W Contrast - 07/07/2018 2:25 pm CLINICAL HISTORY: Abdominal pain. Vomiting COMPARISON: None. TECHNIQUE: Computed axial tomography of the abdomen and pelvis was obtained. 100 cc Isovue-300 is ad ministered intravenously. Oral contrast was given. All CT scans are performed using dose optimization technique as appropriate and may include automated exposure control or mA/KV adjustment according to patient size. FINDINGS: A 10 millimeter enhancing lesion medial segment left lobe of liver. The Spleen, pancreas, adrenals and left kidney appear unremarkable. A 5.4 centimeter heterogeneous partially necrotic mass extends off of the right kidney. The appendix is normal caliber. There is no evidence of diverticulitis The prostate gland is enlarged. 3 centimeter low-density areas present within the left aspect. Small right inguinal hernia contains fat IMPRESSION: 5.4 centimeter right renal mass likely represents neoplasm 3 centimeter low-density area within the prostate gland probably representing an area of infection or inflammation. Neoplasm is another consideration. 10 millimeter enhancing lesion within the left lobe of the liver may represent a hemangioma or metast asis
--- NOTE | 2018-07-07 15:33 | EKG ---
Test Date: 2018-07-07 Test Time: 13:43:13 Ore Bridge Operator: AG/V MEASUREMENT RESULTS: Intervals: Rate: 146 VT: 118 QRSD: 90 QT: 282 QTc: 439 [place]: P: 62 VT: 118 QRS: 21 T: 141 INTERPRETIVE STATEMENTS: Sinus tachycardia Cannot rule out Inferior infarct, age undetermined Abnormal ECG Compared to ECG 07/07/2018 12:13:00 Myocardial infarct finding now present ST (T wave) deviation no longer present Possible ischemia no longer present Electronically Signed On 07-07-18 15:32:51 SOFTWARE COMPUTER SPECIALIST by Herbie Wei
--- NOTE | 2018-07-07 15:34 | EKG ---
Test Date: 2018-07-07 Test Time: 12:13:00 Dry Cell Battery Assembler: ZULY MEASUREMENT RESULTS: Intervals: Rate: 154 ND: 114 QRSD: 88 QT: 264 QTc: 422 [place]: P: 50 ND: 114 QRS: 35 T: 213 INTERPRETIVE STATEMENTS: Sinus tachycardia ST & T wave abnormality, consider inferolateral ischemia Abnormal ECG Compared to ECG 02/10/2018 14:55:10 ST (T wave) deviation now present Possible ischemia now present Sinus rhythm no longer present Sinus arrhythmia no longer present Electronically Signed On 07-07-18 15:33:13 ZOO KEEPER by Herbie Wei
[2018-07-07] MEDS ORDERED: ONDANSETRON 4 MG/2 ML VIAL IV PRN (15:59)
--- NOTE | 2018-07-07 16:00 | ER ---
Nurse's Notes [facility] Name: Froy Hatfield Age: 57 yrs Sex: Male : 1960 Arrival Date: 07/07/2018 Time: 12:13 Bed 8 Private MD: Diagnosis: Dehydration;Acute prostatitis;Nausea with vomiting, unspecified Presentation: 07/07 12:14 Presenting complaint: EMS states: N/V and weakness x 2 days. Transition of care: hb patient was not received from another setting of care. Onset of symptoms was July 06, 2018. Risk Assessment: Do you want to hurt yourself or someone else? Patient reports no desire to harm self or others. Care prior to arrival: None. 12:14 Method Of Arrival: EMS: [facility] 12:14 Acuity: JO 2 12:30 Initial Sepsis Screen: Does the patient meet any 2 criteria? No. Patient's initial hb sepsis screen is negative. Does the patient have a suspected source of infection? No. Patient's initial sepsis screen is negative. Triage Assessment: 12:15 General: Appears in no apparent distress. well groomed, well developed, well nourished, sg Behavior is calm, cooperative, appropriate for age. GI: Reports lower abdominal pain, nausea, vomiting. Historical: - Allergies: 12:16 No Known Allergies; hb - Home Meds: 12:16 Actoplus MET 15-850 mg Oral tab 1 tab once daily [Active]; aspirin 325 mg Oral TbEC 1 hb tab once daily [Active]; atorvastatin 40 mg Oral tab 1 tab once daily [Active]; carvedilol 12.5 mg Oral tab 1 tab 2 times per day [Active]; Januvia 50 mg Oral tab 1 tabs once daily [Active]; lisinopril 40 mg Oral tab 1 tab once daily [Active]; metformin 850 mg Oral tab 1 tab daily [Active]; - PMHx: 12:16 CVA; Diabetes - IDDM; Hypertension; hb - PSHx: 12:16 None; hb - Immunization history:: Adult Immunizations up to date. - Social history:: Smoking status: Patient/guardian denies using tobacco. - Ebola Screening: : No symptoms or risks identified at this time. - Family history:: not pertinent. - Hospitalizations: : No recent hospitalization is reported. Screenin:17 Abuse screen: Denies threats or abuse. Denies injuries from another. Nutritional hb screening: No deficits noted. Tuberculosis screening: No symptoms or risk factors identified. Fall Risk Total Ahumada Fall Scale indicates High Risk Score (45 or more points). Fall prevention measures have been instituted. Side Rails Up X 2 Frequent Obs/Assessments Occuring As available patient and family educated on Fall Prevention Program and Strategies. Assessment: 12:35 General: Appears in no apparent distress. ill, obese, unkempt, well developed, well sg nourished, Behavior is cooperative, drowsy, quiet. Pain: Complains of pain in abdomen Pain does not radiate. Quality of pain is described as aching. Neuro: Level of Consciousness is awake, obeys commands, lethargic, Oriented to person, place, time, Chairman & Chief Executive Officer are equal bilaterally Paralysis in left arm(s) Speech is normal, Facial symmetry appears normal. Cardiovascular: Patient's skin is warm and dry. Chest pain is denied. Respiratory: Airway is patent Respiratory effort is even, unlabored. GI: Abdomen is round obese. : No signs and/or symptoms were reported regarding the genitourinary system. EENT: No signs and/or symptoms were reported regarding the EENT system. Derm: Skin is intact, Skin is normal. Musculoskeletal: Circulation, motion, and sensation intact. Range of motion: limited in left shoulder, left elbow and left wrist. 13:03 Reassessment: Patient appears in no apparent distress at this time. Patient and/or hb family updated on plan of care and expected duration. Pain level reassessed. Patient is alert, oriented x 3, equal unlabored respirations, skin warm/dry/pink. 14:00 Reassessment: Patient appears in no apparent distress at this time. Patient and/or hb family updated on plan of care and expected duration. Pain level reassessed. Patient is alert, oriented x 3, equal unlabored respirations, skin warm/dry/pink. 15:00 Reassessment: Patient appears in no apparent distress at this time. Patient and/or hb family updated on plan of care and expected duration. Pain level reassessed. Patient is alert, oriented x 3, equal unlabored respirations, skin warm/dry/pink. 16:00 Reassessment: Patient appears in no apparent distress at this time. Patient and/or hb family updated on plan of care and expected duration. Pain level reassessed. Patient is alert, oriented x 3, equal unlabored respirations, skin warm/dry/pink. Vital Signs: 12:15 BP 143 / 99; Pulse 154; Resp 16; Temp 98.1; Pulse Ox 100% on R/A; Pain 0/10; hb 13:02 BP 143 / 99; Pulse 140; Resp 15; Pulse Ox 100% on R/A; hb 14:00 BP 146 / 76; Pulse 145; Resp 17; Pulse Ox 100% on R/A; hb 15:15 BP 137 / 79; Pulse 137; Resp 15; Pulse Ox 97% on R/A; Pain 0/10; hb 16:30 BP 133 / 88; Pulse 134; Resp 16; Temp 98.4; Pulse Ox 100% on R/A; Pain 0/10; hb 17:00 Temp 100.1; sg ED Course: 12:00 Initial lab(s) drawn, by me, sent to lab. First set of blood cultures drawn by me. sg Inserted saline lock: 20 gauge in right forearm, using aseptic technique. Blood collected. 12:10 No provider procedures requiring assistance completed. sg 12:13 Patient arrived in ED. hb 12:13 Nash Dsouza MD is Attending Physician. rn 12:15 Triage completed. hb 12:15 Arm band placed on right wrist. hb 12:15 Patient has correct armband on for positive identification. Placed in gown. Bed in low hb position. Call light in reach. Side rails up X2. 12:15 Second set of blood cultures drawn by me. sg 12:39 X-ray completed. Portable x-ray completed in exam room. Patient tolerated procedure mh1 well. 13:31 Andriy Greenwood, RN is Primary Nurse. sg 13:59 EKG done, by industrial engineering technician. reviewed by Nash Dsouza MD. vh 14:25 CT completed. Patient tolerated procedure well. Patient moved to CT via stretcher. sj Patient moved back from CT. 15:52 Urine Dipstick--Ancillary (enter results) Sent. ss 16:00 Abner Marcos DO is Hospitalizing Provider. rn 16:00 Yudy Marcos MD is Hospitalizing Provider. rn 16:56 Patient admitted, IV remains in place. intact, No redness/swelling at site. sg Administered Medications: 12:30 Drug: NS 0.9% 500 ml Route: IV; Rate: bolus; Site: right forearm; sg 13:25 Follow up: Response: No adverse reaction; IV Status: Completed infusion sg 12:31 Drug: Zofran 4 mg Route: IVP; Site: right forearm; sg 13:04 Follow up: Response: No adverse reaction; Nausea is decreased hb 13:04 Drug: NS 0.9% 500 ml Route: IV; Rate: bolus; Site: right forearm; hb 13:40 Follow up: Response: No adverse reaction; IV Status: Completed infusion sg 16:00 Drug: Rocephin 1 grams Route: IV; Rate: calculated rate; Site: right forearm; sg 16:30 Follow up: Response: No adverse reaction; IV Status: Completed infusion sg 16:03 Not Given (Duplicate Order): Rocephin - (cefTRIAXone) 1 grams IVPB once over 30 mins; sg (mix in 50 mL NS) 16:40 Drug: NS 0.9% 1000 ml Route: IV; Rate: 1000 ml; Site: right forearm; sg 17:45 Follow up: Response: No adverse reaction; IV Status: Completed infusion sg Outcome: 15:59 Discharge ordered by . rn 16:01 Decision to Hospitalize by Provider. rn 16:59 Admitted to Tele accompanied by [facility], via stretcher, room 206, with chart, Report sg called to Blas CARRILLO 16:59 Condition: stable 16:59 Instructed on the need for admit, safety practices, Demonstrated understanding of instructions. 17:32 Patient left the ED. hb Signatures: Andriy Greenwood RN RN Ana Luisa Avina [facility] Beata Ceja Nash Dsouza MD MD rn Smirch, Shelby, RN RN Annamarie Barriga Yocasta Palencia RN RN hb Corrections: (The following items were deleted from the chart) 12:19 12:14 Acuity: JO 3 hb hb 12:19 12:15 BP 143 / 99; Pulse 88bpm; Resp 16bpm; Pulse Ox 100% RA; Temp 98.1F; Pain 0/10; hb hb
[2018-07-07] MEDS ORDERED: CEFTRIAXONE/SWI 1gm 1 GM/10 ML SYR ONE (16:01)
--- NOTE | 2018-07-07 16:03 | EDPHYS ---
Physician Documentation [facility] Name: Froy Hatfield Age: 57 yrs Sex: Male : 1960 Arrival Date: 07/07/2018 Time: 12:13 Bed 8 Private MD: ED Physician Nash Dsouza HPI: 07/07 12:37 This 57 yrs old Black Male presents to ER via EMS with complaints of Nausea/Vomiting. rn 12:37 The patient presents to the emergency department with nausea, vomiting, abdominal pain. rn Onset: The symptoms/episode began/occurred last night. Possible causes: unknown. Severity of symptoms: At their worst the symptoms were moderate in the emergency department the symptoms are unchanged. It is unknown whether or not the patient has had similar symptoms in the past. Reports feels sick, + nausea/vomiting/diarrhea, + generalized weakness, no chest pain or palpitations, no cardiac history. . Historical: - Allergies: 12:16 No Known Allergies; hb - Home Meds: 12:16 Actoplus MET 15-850 mg Oral tab 1 tab once daily [Active]; aspirin 325 mg Oral TbEC 1 hb tab once daily [Active]; atorvastatin 40 mg Oral tab 1 tab once daily [Active]; carvedilol 12.5 mg Oral tab 1 tab 2 times per day [Active]; Januvia 50 mg Oral tab 1 tabs once daily [Active]; lisinopril 40 mg Oral tab 1 tab once daily [Active]; metformin 850 mg Oral tab 1 tab daily [Active]; - PMHx: 12:16 CVA; Diabetes - IDDM; Hypertension; hb - PSHx: 12:16 None; hb - Immunization history:: Adult Immunizations up to date. - Social history:: Smoking status: Patient/guardian denies using tobacco. - Ebola Screening: : No symptoms or risks identified at this time. - Family history:: not pertinent. - Hospitalizations: : No recent hospitalization is reported. ROS: 12:37 Constitutional: Negative for fever, chills, and weight loss, Eyes: Negative for injury, rn pain, redness, and discharge, Neck: Negative for injury, pain, and swelling, Cardiovascular: Negative for chest pain, palpitations Respiratory: Negative for shortness of breath, cough, wheezing, and pleuritic chest pain, Abdomen/GI: Negative for constipation MS/Extremity: Negative for injury and deformity, Skin: Negative for injury, rash, and discoloration, Neuro: Negative for headache, numbness, tingling, and seizure. Exam: 12:37 Constitutional: Overweight male, no acute distress Head/Face: Normocephalic, rn atraumatic. Eyes: Pupils equal round and reactive to light, extra-ocular motions intact. Lids and lashes normal. Conjunctiva and sclera are non-icteric and not injected. Cornea within normal limits. Periorbital areas with no swelling, redness, or edema. ENT: dry MM Cardiovascular: regular, tachycardic, no murmur Respiratory: Lungs have equal breath sounds bilaterally, clear to auscultation. No increased work of breathing, no retractions or nasal flaring. Abdomen/GI: soft, non-tender MS/ Extremity: Pulses equal, no cyanosis. Neurovascular intact. Full, normal range of motion. Equal circumference. Neuro: Awake and alert, GCS 15, oriented to person, place, time, and situation. Cranial nerves II-XII grossly intact. Motor strength 5/5 in all extremities. Sensory grossly intact. Vital Signs: 12:15 BP 143 / 99; Pulse 154; Resp 16; Temp 98.1; Pulse Ox 100% on R/A; Pain 0/10; hb 13:02 BP 143 / 99; Pulse 140; Resp 15; Pulse Ox 100% on R/A; hb 14:00 BP 146 / 76; Pulse 145; Resp 17; Pulse Ox 100% on R/A; hb 15:15 BP 137 / 79; Pulse 137; Resp 15; Pulse Ox 97% on R/A; Pain 0/10; hb 16:30 BP 133 / 88; Pulse 134; Resp 16; Temp 98.4; Pulse Ox 100% on R/A; Pain 0/10; hb 17:00 Temp 100.1; sg MDM: 12:14 Patient medically screened. rn 15:57 Differential diagnosis: Nonspecific abd pain, UTI, pyelonephritis, dehydration, sepsis. rn Data reviewed: vital signs, nurses notes, lab test result(s), EKG, radiologic studies, and as a result, I will admit patient. Counseling: I had a detailed discussion with the patient and/or guardian regarding: the historical points, exam findings, and any diagnostic results supporting the discharge/admit diagnosis, lab results, radiology results, the need for further work-up and treatment in the hospital. Admission orders: after a detailed discussion of the patient's condition and case, the admit orders are written by me. 07/07 12:21 Order name: Basic Metabolic Panel rn 07/07 12:21 Order name: CBC with Diff rn 07/07 12:21 Order name: Hepatic Function rn 07/07 12:21 Order name: Lipase rn 07/07 12:21 Order name: Troponin (emerg Dept Use Only) rn 07/07 12:55 Order name: CBC with Automated Diff; Complete Time: 13:17 EDMS 07/07 12:55 Order name: CBC Smear Scan; Complete Time: 13:17 EDMS 07/07 12:56 Order name: Basic Metabolic Panel; Complete Time: 13:17 EDMS 07/07 12:56 Order name: Liver (Hepatic) Function; Complete Time: 13:17 EDMS 07/07 12:56 Order name: Troponin (Emerg Dept Use Only); Complete Time: 13:17 EDMS 07/07 12:56 Order name: Lipase; Complete Time: 13:17 EDMS 07/07 15:50 Order name: Urine Dipstick--Ancillary (enter results) 07/07 15:52 Order name: Urine Microscopic Only 07/07 15:52 Order name: Urine Culture 07/07 12:21 Order name: EKG; Complete Time: 12:22 07/07 12:21 Order name: XRAY Chest (1 view) 07/07 12:21 Order name: CT Abd/Pelvis - W/Contrast 07/07 13:45 Order name: RAD; Complete Time: 14:44 EDOH 07/07 14:46 Order name: CT; Complete Time: 15:05 EDOH 07/07 15:55 Order name: Procalcitonin 07/07 16:00 Order name: Blood Culture Adult (2) 07/07 16:11 Order name: Urine Dipstick-Ancillary EDOH 07/07 16:28 Order name: Urine Microscopic Only EDOH 07/07 16:33 Order name: Procalcitonin EDOH 07/07 12:21 Order name: IV Saline Lock; Complete Time: 12:30 rn 07/07 12:21 Order name: Labs collected and sent; Complete Time: 12:30 rn 07/07 12:21 Order name: EKG - Nurse/Tech; Complete Time: 14:36 rn 07/07 12:22 Order name: Glucose Level; Complete Time: 12:31 rn Administered Medications: 12:30 Drug: NS 0.9% 500 ml Route: IV; Rate: bolus; Site: right forearm; sg 13:25 Follow up: Response: No adverse reaction; IV Status: Completed infusion sg 12:31 Drug: Zofran 4 mg Route: IVP; Site: right forearm; sg 13:04 Follow up: Response: No adverse reaction; Nausea is decreased hb 13:04 Drug: NS 0.9% 500 ml Route: IV; Rate: bolus; Site: right forearm; hb 13:40 Follow up: Response: No adverse reaction; IV Status: Completed infusion sg 16:00 Drug: Rocephin 1 grams Route: IV; Rate: calculated rate; Site: right forearm; sg 16:30 Follow up: Response: No adverse reaction; IV Status: Completed infusion sg 16:03 Not Given (Duplicate Order): Rocephin - (cefTRIAXone) 1 grams IVPB once over 30 mins; sg (mix in 50 mL NS) 16:40 Drug: NS 0.9% 1000 ml Route: IV; Rate: 1000 ml; Site: right forearm; sg 17:45 Follow up: Response: No adverse reaction; IV Status: Completed infusion sg Disposition: 07/07/18 16:01 Hospitalization ordered by Yudy Marcos for Inpatient Admission. Preliminary diagnosis are Dehydration, Acute prostatitis, Nausea with vomiting, unspecified. - Bed requested for Telemetry/MedSurg (Inpatient). - Status is Inpatient Admission. hb - Condition is Stable. - Problem is new. - Symptoms have improved. UTI on Admission? Yes Signatures: Dispatcher [employer] Krista West RN RN dw Gay, Steven, RN RN sg Nieto, Roman, MD MD rn Baxter, Heather, RN RN hb Corrections: (The following items were deleted from the chart) 16:00 15:59 07/07/2018 15:59 Discharged to Home. Impression: Nausea and vomiting; Acute rn prostatitis; Dehydration. Condition is Stable. Forms are Medication Reconciliation Form, Thank You Letter, Antibiotic Education, Prescription Opioid Use. Follow up: Private Physician; When: As needed; Reason: Recheck today's complaints, Re-evaluation by your physician. Problem is new. Symptoms have improved. rn 16:24 16:01 Hospitalization Ordered by Yudy Marcos MD for Inpatient Admission. Preliminary dw diagnosis is Dehydration; Acute prostatitis; Nausea with vomiting, unspecified. Bed requested for Telemetry/MedSurg (Inpatient). Status is Inpatient Admission. Condition is Stable. Problem is new. Symptoms have improved. UTI on Admission? Yes. rn 17:32 16:24 07/07/2018 16:01 Hospitalization Ordered by Yudy Marcos MD for Inpatient hb Admission. Preliminary diagnosis is Dehydration; Acute prostatitis; Nausea with vomiting, unspecified. Bed requested for Telemetry/MedSurg (Inpatient). Status is Inpatient Admission. Condition is Stable. Problem is new. Symptoms have improved. UTI on Admission? Yes. dw
[2018-07-07 16:11] LABS: Urine Blood 2+ (NEG); Urine Glucose 1+ (NEG); Urine Protein 1+ (NEG); Urine Specific Gravity 1.015 (1.005-1.030); Urine pH 5.5 (5.0-7.0)
[2018-07-07 16:27] LABS: Urine Bacteria 20-50 /HPF (NONE SEEN); Urine Culture Reflex Order NOT NEEDED; Urine RBC <5 /HPF (NONE SEEN)
--- NOTE | 2018-07-07 17:49 | P.HP ---
Certification for Inpatient Patient admitted to: Observation With expected LOS: <2 Midnights Patient will require the following post-hospital care: None Practitioner: I am a practitioner with admitting privileges, knowledge of patient current condition, hospital course, and medical plan of care. Services: Services provided to patient in accordance with Admission requirements found in Title 42 Section 412.3 of the Code of Federal Regulations Patient History Date of Service: 07/07/18 Primary Care Provider: Dr Abreu Reason for admission: UTI History of Present Illness: This is a 57-year-old male with significant past medical history of hypertension , diabetes, CVA in 2010 with left-sided weakness present to the ER complaining of having chills that started this morning. Patient stated that he has had similar episode in the past and was found to have urinary tract infection and thus decided to come to the ER today to get a further checked out. Patient also complained of having increasing urinary frequency and burning. Patient stated that his symptoms started about 2-3 days ago and he has been not feeling well overall. Patient denies having any fever shortness of breath or chest pain at this time. In the ER patient was found to have sepsis most likely secondary to UTI. Medicine team was then consulted to admit the patient for further care. Allergies No Known Allergies Allergy (Verified 12/23/17 00:36) Home Medications: Atorvastatin Calcium [Lipitor*] 40 mg PO BEDTIME 11/03/16 Carvedilol [Coreg*] 12.5 mg PO BID 11/03/16 Lisinopril [Prinivil*] 40 mg PO DAILY 11/03/16 Sitagliptin Phosphate [Januvia*] 100 mg PO DAILY 11/03/16 Aspirin 325 mg PO DAILY 12/23/17 Pioglitazone HCl/Metformin HCl [Actoplus Met 15 mg-500 mg Tab] 1 tab PO BID Amoxicillin/Potassium Clav [Augmentin 500-125 Tablet] 1 each PO BID #28 tablet 12/24/17 - Past Medical/Surgical History Diabetic: Yes -: HTN -: CVA -: Diabetes -: Cataracts - Family History Mother -: Heart disease, Hypertension, Diabetes - Social History Alcohol use: No CD- Drugs: No Caffeine use: Yes Review of Systems 10-point ROS is otherwise unremarkable Physical Examination - Physical Exam General: Alert, In no apparent distress HEENT: Atraumatic, PERRLA, Mucous membr. moist/pink, EOMI, Sclerae nonicteric Neck: Supple, 2+ carotid pulse no bruit, No LAD, Without JVD or thyroid abnormality Respiratory: Clear to auscultation bilaterally, Normal air movement Cardiovascular: Regular rate/rhythm, Normal S1 S2 Gastrointestinal: Normal bowel sounds, No tenderness Musculoskeletal: No tenderness Integumentary: No rashes Neurological: Normal speech, Normal affect, Abnormal strength (Left-sided weakness noted which is his baseline) Lymphatics: No axilla or inguinal lymphadenopathy - Studies Laboratory Data (last 24 hrs) 07/07/18 12:24: WBC 11.1 H, Hgb 10.7 L, Hct 32.0 L, Plt Count 206 07/07/18 12:24: Sodium 137, Potassium 3.3 L, BUN 13, Creatinine 1.10, Glucose 247 H, Total Bilirubin 1.6 H, AST 15, ALT 21, Alkaline Phosphatase 96, Lipase 155 Assessment and Plan - Problems (Diagnosis) (1) Sepsis Onset Date: 12/23/17 Current Visit: No Status: Acute Plan: Sepsis most likely secondary to UTI. UA is consistent with positive nitrate Urine cultures pending at this time Started on IV Rocephin. Will follow up with blood culture and urine culture Currently hemodynamically stable Qualifiers: Sepsis type: sepsis due to unspecified organism (2) UTI (urinary tract infection) Onset Date: 12/23/17 Current Visit: No Status: Acute Plan: UA positive for a UTI -IV Rocephin started here in the hospital -urine cultures pending at this time Qualifiers: Urinary tract infection type: acute cystitis (3) Renal mass Current Visit: Yes Status: Acute Plan: CT scan of the abdomen consistent with renal mass along with liver lesion and prostate mass most likely consistent with neoplasm -will consult urology at this time if needed will get workup for renal cell carcinoma -after the workup is completed patient can follow up with heme oncology on outpatient basis (4) CVA (cerebral vascular accident) Onset Date: 12/23/17 Current Visit: No Status: Chronic Plan: Stable at this time with left-sided weakness. Qualifiers: CVA mechanism: unspecified Qualified Code(s): I63.9 - Cerebral infarction, unspecified (5) Diabetes Onset Date: 12/23/17 Current Visit: No Status: Chronic Qualifiers: Diabetes mellitus type: type 2 Diabetes mellitus oysterman insulin use: without half-way use Diabetes mellitus complication status: without complication Qualified Code(s): E11.9 - Type 2 diabetes mellitus without complications (6) HTN (hypertension) Onset Date: 12/23/17 Current Visit: No Status: Chronic Qualifiers: Hypertension type: essential hypertension - Plan Patient will be admitted to medical-surgical floor for further treatment for sepsis secondary to UTI and renal mass Discharge Plan: Home Plan to discharge in: 48 Hours - Advance Directives Does patient have a Living Will: Yes Does patient have a Durable POA for Healthcare: No - Code Status/Comfort Care Code Status Assessed: Yes Critical Care: No
[2018-07-07] MEDS: NA CHLORIDE 0.9% 1,000 ML IV SCH ×2 (18:26→21:24)
[2018-07-07] MEDS: ENOXAPARIN 40 MG/0.4 ML SQ SCH (18:26)
[2018-07-07] MEDS ORDERED: POTASSIUM 25 MEQ EFFERV TAB PO ONE (20:05)
[2018-07-07] MEDS: ACETAMINOPHEN 500 MG TAB PO PRN (21:23)
[2018-07-07] MEDS ORDERED: NA CHLORIDE 0.9% 500 ML IV ONE (22:53)
[2018-07-07] MEDS ORDERED: Levofloxacin500mg IV 500 MG/100 ML BAG IV SCH (23:00)
[2018-07-07] MEDS ORDERED: PIPER/TAZO/NS 3.375gm 6.750 GM/200 ML BAG ONE (23:38)
[2018-07-07 23:49] VITALS: O2SAT 96
[2018-07-08] MEDS: PIPER/TAZO/NS 3.375gm 3.375 GM/100 ML BAG IVPB SCH ×4 (00:33→17:06)
[2018-07-08] MEDS ORDERED: NA CHLORIDE 0.9% 500 ML IV ONE ×3 (00:52→16:00)
[2018-07-08] MEDS ORDERED: HYDROCORTISONE SUC 100 MG INJ IV STA (01:29)
[2018-07-08] MEDS: ACETAMINOPHEN 500 MG TAB PO PRN ×3 (01:36→18:49)
[2018-07-08] MEDS ORDERED: WATER FOR INJ,STERILE 10 ML ONE ×2 (01:45→21:29)
[2018-07-08] MEDS ORDERED: METOPROLOL TARTRATE 5 MG/5 ML INJ IV STA ×3 (02:15→15:08)
[2018-07-08 05:08] LABS: Absolute Lymphocytes (CBC) 0.4 K/uL (0.7-4.9); Absolute Monocytes 0.9 K/uL (0.1-1.3); Absolute Neutrophil 14.4 K/uL (1.8-8.0); Basophils % 0.3 % (0-1.3); Hematocrit 26.5 % (39.6-49.0); Lymphocytes % 2.6 % (15.3-44.8); MCH 29.2 pg (27.0-35.0); MPV 9.4 fL (7.6-11.3); Monocytes % 5.6 % (3.3-12.3); RBC Red Blood Cell Count 3.08 M/uL (4.33-5.43)
[2018-07-08 05:28] LABS: Albumin 2.6 g/dL (3.4-5.0); Phosphorus 2.3 mg/dL (2.5-4.9); Potassium 3.6 mmol/L (3.5-5.1); Protein, Total 6.5 g/dL (6.4-8.2)
[2018-07-08 05:29] VITALS: BMI 34.9
[2018-07-08 05:32] LABS: Magnesium 1.2 mg/dL (1.8-2.4)
[2018-07-08] MEDS ORDERED: Magnesium Sulfate 2gm IVPB 2 G/50 ML BAG IV ONE (06:00)
[2018-07-08] MEDS ORDERED: POTASSIUM PHOS IN 0.9 % NACL 15 MMOL/250 ML BAG IV ONE (06:00)
--- NOTE | 2018-07-08 06:30 | RAD REPORT ---
EXAM DESCRIPTION: RAD - Chest Single View - 07/08/2018 2:00 am CLINICAL HISTORY: Shortness of breath COMPARISON: July 07 TECHNIQUE: AP portable chest image was obtained 0145 hours . FINDINGS: Lung volumes are relatively low. Lung markings have decreased slightly in prominence from the prior study. Hazy opacification at the left base remains. Vasculature within normal limits for a shallow inspiration exam. Heart size is upper normal and stable. No pneumothorax or enlarging pleural effusion. No acute bony abnormality seen. No acute aortic findings suspected. IMPRESSION: Interstitial edema or infiltrate pattern seen July 07 has improved. No new or progressive finding.
--- NOTE | 2018-07-08 08:40 | P.PN ---
Subjective Date of Service: 07/07/18 Reviewed chart. Patient was here in December with the urinary tract infection & microscopic hematuria. Came back to the emergency room and had gross hematuria a couple of days later. At that time patient was discharged with a UTI. Patient's health has been declining according to family over the last couple of months. Patient was admitted today and was found to have a necrotic renal mass. Patient had a high fever and is tachycardic. Reviewed his scan and patient has a necrotic renal mass. This is probably the etiology of his sepsis. We will go ahead and transfer patient to ICU as his blood pressure is getting worse and he is becoming short of breath. Go ahead and give him a low-dose beta-amanda and may need an echocardiogram to assess his cardiac functioning. Continue with close monitoring in the intensive care unit at this time as patient appears to be going into septic shock. Review of Systems 10-point ROS is otherwise unremarkable Physical Examination - Vital Signs Temperature: 99 F Blood Pressure: 125/50 Pulse: 102 Respirations: 21 Pulse Ox (%): 96 - Physical Exam General: Alert, In no apparent distress, Oriented x3 Respiratory: Clear to auscultation bilaterally, Normal air movement Cardiovascular: Regular rate/rhythm, Normal S1 S2, Systolic murmur Gastrointestinal: Normal bowel sounds, Soft and benign, Non-distended, No tenderness Musculoskeletal: No clubbing, No swelling, No tenderness Integumentary: No rashes Neurological: Normal speech, Normal tone, Sensation intact, Normal affect, Abnormal strength - Studies Laboratory Data (last 24 hrs) 07/08/18 03:40: Sodium 137, Potassium 3.6, BUN 12, Creatinine 1.10, Glucose 200 H, Phosphorus 2.3 L, Magnesium 1.2 L*, Total Bilirubin 2.0 H, AST 49 H, ALT 50, Alkaline Phosphatase 95 07/08/18 03:40: WBC 15.7 H D, Hgb 9.0 L, Hct 26.5 L D, Plt Count 177 07/07/18 12:24: WBC 11.1 H, Hgb 10.7 L, Hct 32.0 L, Plt Count 206 07/07/18 12:24: Sodium 137, Potassium 3.3 L, BUN 13, Creatinine 1.10, Glucose 247 H, Total Bilirubin 1.6 H, AST 15, ALT 21, Alkaline Phosphatase 96, Lipase 155 Microbiology Data (last 24 hrs): 07/08/18 01:31 Blood - Blood Anaerobic Blood Culture - Final 07/08/18 02:00 Blood - Blood Anaerobic Blood Culture - Final Medications List Reviewed: Yes Assessment & Plan - Problems (Diagnosis) (1) Renal cortical necrosis Current Visit: Yes Status: Acute (2) Septic shock Current Visit: Yes Status: Acute (3) Pyelonephritis Current Visit: Yes Status: Acute (4) Tachypnea Current Visit: Yes Status: Acute (5) Tachycardia Current Visit: Yes Status: Acute (6) CVA (cerebral vascular accident) Onset Date: 12/23/17 Current Visit: No Status: Chronic Qualifiers: CVA mechanism: unspecified Qualified Code(s): I63.9 - Cerebral infarction, unspecified - Plan Plan: 1. Broaden antibiotic coverage 2. IV hydration 3. Transfer to ICU and notify Urology 4. Pain control 5. Monitor labs closely and hemodynamics closely 6. GI and DVT prophylaxis - Advance Directives Does patient have a Living Will: Yes Does patient have a Durable POA for Healthcare: No - Code Status/Comfort Care Code Status Assessed: Yes Code Status: Full Code Critical Care: Yes Time Spent Managing PTS Care (In Minutes): 45
--- NOTE | 2018-07-08 08:46 | P.PN ---
Date of Service: 07/08/18 Patient is clinically improving. Heart rate has come down after beta-amanda dosing. Blood pressure is still on the lower side. Monitoring closely and giving fluids. Patient became more tachypneic. Monitoring in ICU at this time. Clinically remains unstable-will need close monitoring in ICU Sepsis Focused Assessment - Sepsis Screen Result Severe Sepsis: Positive - Evaluation Current stage of sepsis: Severe sepsis - Vital Signs Temperature: 99 F Heart rate: 102 Blood Pressure: 125/50 Respiratory Rate: 21 O2 Sat by Pulse Oximetry: 96 - Examination Date exam was performed: 07/08/18 Time exam was performed: 03:30 Heart: Regular rate/rhythm Lungs: Diminished air movement Peripheral pulses: 3+ Normal Peripheral pulse location: Radial Capillary refill: <2 Seconds
[2018-07-08] MEDS: ENOXAPARIN 40 MG/0.4 ML SQ SCH (08:53)
[2018-07-08] MEDS ORDERED: CEFTRIAXONE/SWI 1gm 1 GM/10 ML SYR IVP SCH (09:00)
[2018-07-08] MEDS ORDERED: VANCOMYCIN/NS 1 gm 1 GM/250 ML BAG IVPB SCH (10:25)
[2018-07-08] MEDS ORDERED: VANCOMYCIN 1.75 GM in NA CHLORIDE 0.9% 500 ML IVPB SCH (11:00)
[2018-07-08] MEDS: NA CHLORIDE 0.9% 1,000 ML IV SCH ×2 (12:00→15:53)
[2018-07-08] MEDS ORDERED: D50W 25 GM/50 ML SYRINGE IV PRN (13:25)
[2018-07-08] MEDS ORDERED: GLUCAGON 1 MG/VIAL IM PRN (13:25)
[2018-07-08] MEDS: INSULIN -REGULAR HUMAN 50 UNIT/0.5 ML ML SQ SCH ×3 (13:59→21:00)
[2018-07-08] MEDS ORDERED: NA CHLORIDE 0.9% 500 ML ONE (15:26)
[2018-07-08] MEDS ORDERED: MAGNESIUM SULFATE 1 gm IVPB 1 GM/100 ML BAG IV ONE (16:00)
[2018-07-08] MEDS ORDERED: SODIUM CHL 0.9% 1000 ML BAG IV SCH (16:00)
--- NOTE | 2018-07-08 16:37 | CON ---
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 The patient said he had a similar workup back in December and was found to have a UTI. He complained of increasing frequency, dysuria and lower urinary tract symptomatology and worsen over the last 2-3 days. The patient had a workup in the ER, which was abdominal and pelvic CT showing 10 mm enhancing lesion in the medial segment of the left lobe of the liver. He also has a 5.4 cm heterogeneous partially necrotic mass and extending of the right kidney and prostate gland was enlarged with a 3 cm low-density area within the left aspect suspicious for prostatitis versus abscess. The patient is going to need further urological intervention for his prostate and kidney mass and possible General Surgery intervention for the liver mass. Allergies: NO KNOWN DRUG ALLERGIES. Home Medications: Lipitor, Coreg, Prinivil, Januvia, aspirin, pioglitazone HCl/ metformin, and Augmentin. Past Medical History: Hypertension, CVA, diabetes, cataracts. Family History: Mother had heart disease, hypertension, diabetes. Social History: No alcohol use. No drug use. Some caffeine use. Review of Systems: A 10-point review of systems, otherwise unremarkable as mentioned above. Physical Examination: General: The patient lying in ICU bed #2, he is stable. He is alert and oriented. Vital Signs: Temperature 99, pulse 102, respiratory rate 21, blood pressure 125 /50, sats 96% on room air. HEENT: Atraumatic and normocephalic. Neck: Supple. Respiratory: Clear. Cardiovascular: S1 and S2. Gastrointestinal: Soft, nontender. Skin: No rashes. Neurologic: Normal speech. Lymphatics: No lymphadenopathy. : Both testicles descended. Phallus, no lesions. DOM deferred. Laboratory Data: Today white count up to 15.7, up from 11,000 yesterday; H and H is 9 and 26; platelet count 177. Chemistry; sodium 137, potassium 3.6, chloride 104, carbon dioxide 24, BUN 24, creatinine 1.1, GFR 84, glucose is 200 , calcium 7.6 low, phosphorus 2.3 low, magnesium 1.2 low. Urine showed positive nitrite, positive esterase, and urine culture is growing gram-negative rods. Assessment: A 57-year-old hypertensive, diabetic gentleman with what appears to be acute prostatitis/prostatic abscess difficult to say at this point. We would need a prostatic ultrasound to determine if it is a prostatic abscess that needs to be drained. He has this a 5 cm exophytic and necrotic right renal mass. He has a liver lesion. This patient is suited for tertiary transfer for higher level. We do not have Interventional Radiology to biopsy the renal mass. Also, if he needs further intervention for the prostatic abscess, we do not have Interventional Radiology to drain this either. He needs to go to a higher level care. MICHELLE/JACQUI Voice ID: [id number] Report ID: [id number] JOE
--- NOTE | 2018-07-08 16:54 | P.PN ---
Subjective Date of Service: 07/08/18 Primary Care Provider: Dr Abreu Chief Complaint: UTI Patient seen and examined at bedside with RN. Chart reviewed. Case discussed with urology, ID, your own college a higher level of care along with Oncology here. Patient is currently doing well overall. Overnight did become tachypneic and tachycardic and thus was transferred to the ICU. This morning has been off of the fluids and has been doing well overall. Will transfer patient to the regular floor. Review of Systems 10-point ROS is otherwise unremarkable Physical Examination - Vital Signs Temperature: 101 F Blood Pressure: 110/58 Pulse: 111 Respirations: 22 Pulse Ox (%): 96 - Physical Exam General: Alert, In no apparent distress, Oriented x3 HEENT: Atraumatic, PERRLA, EOMI Neck: Supple, JVD not distended Respiratory: Clear to auscultation bilaterally, Normal air movement Cardiovascular: Regular rate/rhythm, Normal S1 S2 Gastrointestinal: Normal bowel sounds, No tenderness Musculoskeletal: No tenderness, Other (Left-sided weakness noted) Integumentary: No rashes Neurological: Normal speech, Normal tone, Normal affect Lymphatics: No axilla or inguinal lymphadenopathy - Studies Laboratory Data (last 24 hrs) 07/08/18 03:40: Sodium 137, Potassium 3.6, BUN 12, Creatinine 1.10, Glucose 200 H, Phosphorus 2.3 L, Magnesium 1.2 L*, Total Bilirubin 2.0 H, AST 49 H, ALT 50, Alkaline Phosphatase 95 07/08/18 03:40: WBC 15.7 H D, Hgb 9.0 L, Hct 26.5 L D, Plt Count 177 Microbiology Data (last 24 hrs): 07/08/18 01:31 Blood - Blood Anaerobic Blood Culture - Final 07/08/18 02:00 Blood - Blood Anaerobic Blood Culture - Final Medications List Reviewed: Yes Assessment And Plan - Current Problems (Diagnosis) (1) Sepsis Onset Date: 12/23/17 Current Visit: No Status: Acute Plan: Severe Sepsis most likely secondary to UTI. UA is consistent with positive nitrite Urine cultures pending at this time Switched to IV vanc and Zosyn at this time. Will follow up with blood culture and urine culture Currently hemodynamically stable Qualifiers: Sepsis type: sepsis due to unspecified organism (2) UTI (urinary tract infection) Onset Date: 12/23/17 Current Visit: No Status: Acute Plan: UA positive for a UTI -switched to IV vanc and Zosyn at this time -urine cultures pending at this time Qualifiers: Urinary tract infection type: acute cystitis (3) Renal mass Current Visit: Yes Status: Acute Plan: CT scan of the abdomen consistent with renal mass along with liver lesion most likely consistent with neoplasm -oncology to follow patient outpatient once the severe sepsis and prostate mass has resolved. -urology consulted who recommends the patient be transferred to higher level of care for prostate mass to be evaluated further. Most likely abscess and will need to be drained by IR. [facility] consulted. Patient accepted awaiting bed at this time (4) CVA (cerebral vascular accident) Onset Date: 12/23/17 Current Visit: No Status: Chronic Plan: Stable at this time with left-sided weakness. Qualifiers: CVA mechanism: unspecified Qualified Code(s): I63.9 - Cerebral infarction, unspecified (5) Diabetes Onset Date: 12/23/17 Current Visit: No Status: Chronic Qualifiers: Diabetes mellitus type: type 2 Diabetes mellitus emt intermediate insulin use: without fdc use Diabetes mellitus complication status: without complication Qualified Code(s): E11.9 - Type 2 diabetes mellitus without complications (6) HTN (hypertension) Onset Date: 12/23/17 Current Visit: No Status: Chronic Qualifiers: Hypertension type: essential hypertension - Plan Pending medical-surgical bed at [facility] for higher level of care for prior to drain the prostate abscess. Discharge Plan: Other Plan to discharge in: 72 Hours - Code Status/Comfort Care Code Status Assessed: Yes Critical Care: No
[2018-07-08] MEDS ORDERED: ENOXAPARIN 40 MG/0.4 ML SQ SCH (17:00)
--- NOTE | 2018-07-08 18:03 | RAD REPORT ---
EXAM DESCRIPTION: RAD - Chest Single View - 07/08/2018 5:58 pm CLINICAL HISTORY: to assess Chest pain. COMPARISON: Chest Single View dated 07/08/2018; Chest Single View dated 07/07/2018; Chest Single View dated 12/22/2017; CHEST PA AND LAT 2 VIEW dated 05/06/2010 FINDINGS: Portable technique limits examination quality. The lungs are grossly clear. The heart is mildly prominent in size. No displaced fractures.Degenerati ve changes are present both shoulders, greater on the left. IMPRESSION: No acute intrathoracic process suspected.
--- NOTE | 2018-07-08 18:36 | RAD REPORT ---
EXAM DESCRIPTION: US - Scrotum Testicles - 07/08/2018 6:26 pm CLINICAL HISTORY: Prostate Abscess COMPARISON: No comparisons FINDINGS: The right testicle 4.0 x 2.6 x 1.5 cm. No intratesticular masses or evidence of testicular torsion. The left testicle 3.2 x 2.5 x 1.5 cm. No intratesticular masses or evidence of testicular torsion. Both epididymides are normal in size and appearance. No pathologic fluid collections. IMPRESSION: Unremarkable study.
[2018-07-08 19:11] LABS: Absolute Lymphocytes (CBC) 0.9 K/uL (0.7-4.9); Absolute Monocytes 0.7 K/uL (0.1-1.3); Absolute Neutrophil 10.6 K/uL (1.8-8.0); Basophils % 0.3 % (0-1.3); Eosinophils % 0.3 % (0-4.4); MCH 28.7 pg (27.0-35.0); MCV 86.7 fL (80-100); MPV 9.3 fL (7.6-11.3); Monocytes % 5.9 % (3.3-12.3); RBC Red Blood Cell Count 3.46 M/uL (4.33-5.43)
[2018-07-08 19:27] LABS: ALT/SGPT 55 U/L (12-78); AST/SGOT 52 U/L (15-37); Albumin 2.6 g/dL (3.4-5.0); Alkaline Phosphatase 90 U/L (45-117); BUN Blood Urea Nitrogen 10 mg/dL (7-18); Bicarbonate 24 mmol/L (21-32); Bilirubin Total 1.4 mg/dL (0.2-1.0); Glucose Level 163 mg/dL (74-106); Potassium 3.6 mmol/L (3.5-5.1); Protein, Total 7.1 g/dL (6.4-8.2); Sodium Level 139 mmol/L (136-145)
[2018-07-08 19:59] LABS: Blood Morphology Comment NOT SEEN (NOT SEEN); Platelet Estimate ADEQ; Urine White Blood Cell Casts OK
[2018-07-08] MEDS ORDERED: ACETAMINOPHEN 500 MG TAB PO ONE (20:50)
[2018-07-08] MEDS ORDERED: HYDROCORTISONE SUC 100 MG INJ IV ONE (20:51)
[2018-07-08] MEDS ORDERED: ATORVASTATIN 40 MG TAB PO SCH (21:00)
--- NOTE | 2018-07-08 21:22 | CON ---
INFECTIOUS DISEASE CONSULTATION History Of Present Illness: This is a 57-year-old male with significant history of stroke and left-s ided hemiparesis, coming in with urinary tract infection, fevers, and leukocytosis. The patient is c urrently being treated with IV antibiotics including Zosyn and vancomycin. The patient's initial pre sentation to the hospital having chills since morning. The patient denies any headache, nausea, vomi ting, chest pain, abdominal pain, constipation, or diarrhea. Past Medical History: Diabetes mellitus, hypercholesterolemia, hypertension, stroke, and cataract. Social History: Nonsmoker, nondrinker. Family History: Noncontributory. Medications: Vancomycin, Zosyn. See MARs for other medication. Allergies: NO KNOWN DRUG ALLERGIES. Review of Systems: A 10-point review was performed. Physical Examination: General: This is a 57-year-old male, lying in bed, not in any acute cardiopulmonary distress. Vital Signs: Temperature 101, pulse 111, respirations 22, and blood pressure 110/58. HEENT: Unremarkable. Neck: Supple. Lungs: Basal crackles. Heart: S1, S2. Regular. Abdomen: Soft, nontender. Bowel sounds positive. Extremities: Trace edema to the left side. Laboratory Data: WBC 15,700. Hemoglobin 9. Platelets are 177. Chemistry shows sodium 137, potassi um 3.6, chloride 104, bicarb 24, BUN 12, and creatinine 1.1. Glucose is 200. Bilirubin is 2. Album in is 2.6. Assessment And Plan: This is a 57-year-old male with significant history of left-sided hemiparesis s econdary to stroke, coming in with fever and chills of 101-102 and leukocytosis. Urine is growing gr am-negative rods, more than 100,000, most likely E. coli or Pseudomonas. Continue Zosyn. We will mo nitor blood cultures for growth. Continue IV antibiotics, total course of 10-14 days depending on th e patient's blood cultures being positive or negative. We will follow the patient closely. Consider long-term acute care. Thank you Dr. Marcos for consult. NF/AGUSTOL Voice ID: [id number] Report ID: [id number]
[2018-07-08] MEDS ORDERED: WATER FOR INJ,STERILE 10 ML IV ONE (22:00)
[2018-07-09] MEDS ORDERED: AMLODIPINE 10 MG TAB PO SCH (09:00)
[2018-07-09] MEDS ORDERED: LISINOPRIL 20 MG TAB PO SCH (09:00)
[2018-07-09] MEDS ORDERED: PANTOPRAZOLE 40MG TABLET PO SCH (09:00)
--- NOTE | 2018-07-09 16:00 | P.DS ---
Admission Date: 07/08/18 Discharge Date: 07/09/18 Primary Care Provider: Dr Abreu Disposition: TRANSFER TO [facility] Reason for Admission: UTI - Problems (1) Sepsis Onset Date: 12/23/17 Status: Acute Qualifiers: Sepsis type: sepsis due to unspecified organism (2) UTI (urinary tract infection) Onset Date: 12/23/17 Status: Acute Qualifiers: Urinary tract infection type: acute cystitis (3) Renal mass Onset Date: 07/09/18 Status: Acute (4) CVA (cerebral vascular accident) Onset Date: 12/23/17 Status: Chronic Qualifiers: CVA mechanism: unspecified Qualified Code(s): I63.9 - Cerebral infarction, unspecified (5) Diabetes Onset Date: 12/23/17 Status: Chronic Qualifiers: Diabetes mellitus type: type 2 Diabetes mellitus chcf insulin use: without manager long term care use Diabetes mellitus complication status: without complication Qualified Code(s): E11.9 - Type 2 diabetes mellitus without complications (6) HTN (hypertension) Onset Date: 12/23/17 Status: Chronic Qualifiers: Hypertension type: essential hypertension Brief History of Present Illness: This is a 57-year-old male with significant past medical history of hypertension , diabetes, CVA in 2010 with left-sided weakness present to the ER complaining of having chills that started this morning. Patient stated that he has had similar episode in the past and was found to have urinary tract infection and thus decided to come to the ER today to get a further checked out. Patient also complained of having increasing urinary frequency and burning. Patient stated that his symptoms started about 2-3 days ago and he has been not feeling well overall. Patient denies having any fever shortness of breath or chest pain at this time. In the ER patient was found to have sepsis most likely secondary to UTI. Medicine team was then consulted to admit the patient for further care. Hospital Course: Overall during the hospital stay patient remained stable Patient was initially admitted to the hospital for this secondary to urinary tract infection. Patient was started on IV Levaquin. After admission patient started having elevated white count along with tachycardia and thus was transferred to the ICU bed. In the ICU patient received IV fluids and had marked improvement in his symptoms. After which patient was transferred back to the medical-surgical floor. Patient had abdominal CT done here in the hospital which was consistent with renal mass of 5.4 cm which was most likely neoplasia along with a mass of 3 cm in the prostate area which was most likely inflammation versus infectious process. Patient also had a 10 mm mass on the liver which was most likely metastasis. Urology was consulted on the case due to the renal mass and prostate. Urology recommended that patient be transferred to higher level of care for prostate abscess and prostate ultrasound. [facility] was contacted and patient was transferred to the medical-surgical floor stair for further care for his prostate abscess to be drained by IR. Patient while here in the hospital remained stable and continued on IV antibiotics along with IV fluids. Patient will also need workup of his renal mass while there at [facility]. Vital Signs/Physical Exam: Temp Pulse Resp BP Pulse Ox 101 F H 129 H 20 147/82 H 92 07/08/18 21:35 07/08/18 20:00 07/08/18 20:00 07/08/18 20:00 07/08/18 20:00 General: Alert, In no apparent distress HEENT: Atraumatic, PERRLA, EOMI Neck: Supple, JVD not distended Respiratory: Clear to auscultation bilaterally, Normal air movement Cardiovascular: Regular rate/rhythm, Normal S1 S2 Gastrointestinal: Normal bowel sounds, No tenderness Musculoskeletal: No tenderness Integumentary: No rashes Neurological: Normal speech, Normal tone, Normal affect Lymphatics: No axilla or inguinal lymphadenopathy Laboratory Data at Discharge: WBC 12.3 K/uL (4.3-10.9) H D 07/08/18 19:00 Hgb 9.9 g/dL (13.6-17.9) L 07/08/18 19:00 Hct 30.0 % (39.6-49.0) L 07/08/18 19:00 Plt Count 151 K/uL (152-406) L 07/08/18 19:00 Sodium 139 mmol/L (136-145) 07/08/18 19:00 Potassium 3.6 mmol/L (3.5-5.1) 07/08/18 19:00 BUN 10 mg/dL (7-18) 07/08/18 19:00 Creatinine 1.00 mg/dL (0.55-1.3) 07/08/18 19:00 Glucose 163 mg/dL (74-106) H 07/08/18 19:00 Phosphorus 2.3 mg/dL (2.5-4.9) L 07/08/18 03:40 Magnesium 1.6 mg/dL (1.8-2.4) L 07/08/18 15:14 Total Bilirubin 1.4 mg/dL (0.2-1.0) H 07/08/18 19:00 AST 52 U/L (15-37) H 07/08/18 19:00 ALT 55 U/L (12-78) 07/08/18 19:00 Alkaline Phosphatase 90 U/L (45-117) 07/08/18 19:00 Lipase 155 U/L (73-393) 07/07/18 12:24 Home Medications: Lisinopril [Prinivil*] 40 mg PO DAILY 11/03/16 Sitagliptin Phosphate [Januvia*] 50 mg PO DAILY 11/03/16 Aspirin 325 mg PO DAILY 12/23/17 Pioglitazone HCl/Metformin HCl [Actoplus Met 15 mg-500 mg Tab] 1 tab PO BID Amlodipine Besylate 1 tab PO DAILY 07/07/18 Atorvastatin Calcium [Lipitor] 40 mg PO BEDTIME 07/07/18 Pantoprazole [Protonix Tab*] 1 tab PO DAILY 07/07/18
[2018-07-10 08:53] VITALS: BP 125/50; TEMP 99
== END 2018-07-08 22:05 | disposition short-term general hospital (02) | DRG 871 ==
LOC: ER 12:11 → ERHOLD 16:00 → 2ND 16:59 → 3RD-ICU 23:20 → OBSVTOIN 07-08 07:36 → 2ND 07-08 14:30
PROVIDERS: ADMIT Family Medicine; ATTEND Family Medicine
DX: A41.9 Sepsis, unspecified organism (principal); N17.1 Acute kidney failure with acute cortical necrosis; R65.21 Severe sepsis with septic shock; I69.354 Hemiplegia and hemiparesis following cerebral infarction affecting left non-dominant side; N10 Acute pyelonephritis; N41.2 Abscess of prostate; E86.0 Dehydration; R11.2 Nausea with vomiting, unspecified; E11.9 Type 2 diabetes mellitus without complications; Z79.84 Long term (current) use of oral hypoglycemic drugs; I10 Essential (primary) hypertension; E78.00 Pure hypercholesterolemia, unspecified; N28.89 Other specified disorders of kidney and ureter; B96.20 Unspecified Escherichia coli [E. coli] as the cause of diseases classified elsewhere; K76.9 Liver disease, unspecified
CPT/HCPCS: 36415; 71045; 74177; 76870; 80048; 80053; 80076; 81003; 81015; 82962; 83036; 83605; 83690; 83735; 84100; 84145; 84484; 85025; 87040; 87077; 87086; 87088; 87186; 87205; 93005; 96361; 96365; 96375; 99285; J0696; J1650; J1720; J2405; J2543; J3475; J7030; Q9967

== ENCOUNTER 2021-03-18 13:40 | Emergency (ER) | payer OTHER ==
--- OUTSIDE RECORDS SUMMARY | 2021-03-18 13:45 | XMS REPORT | Continuity of Care Document ---
:1960 Author Organization [facility] t Address [address] [place] [address] Care Team Providers Name Role Phone Pcp Primary Care Physician Unavailable Ishaan Bermudez MD Attending Clinician [address] Room Attending Clinician Unavailable Laura Menchaca NP Attending Clinician Ishaan Bermudez MD Attending Clinician ISHAAN BERMUDEZ Attending Clinician Unavailable Fredy Kan MD Attending Clinician Murali PRICE giovanni Attending Clinician Kyle PRICE, PDavidson Attending Clinician Zuleyma Redding MD Attending Clinician Quentni TRUJILLO Attending Clinician Unavailable KAYLEN MAHMOOD Attending Clinician Unavailable MARSHALL PLUMMER Attending Clinician Unavailable ZULEYMA REDDING Admitting Clinician Unavailable ISHAAN BERMUDEZ Admitting Clinician Unavailable KAYLEN MAHMOOD Admitting Clinician Unavailable MARSHALL PLUMMER Admitting Clinician Unavailable Payers Payer Name Policy Type Policy Effective Date Expiration Date Sour ce Number MEDICAREMEDICARE A [id number] 2015 BAIRON Ray [id number] 2014-P 00:00:00 - Medical resentMedicare Center MEDICAID - MEDICAID [id number] 2020 BAIRON Ray MGD CARED [facility] COMM 00:00:00 - Med [facility] [id number] 2021- PresentMedicaid Contracted MEDICAIDMEDICAID OF [id number] BAIRON Ray [id number] - Medical e for all Center datesMedicaid VALENCIA [id number] [facility] [facility] MEDICAIDMEDICAID 00:00:00 - Medica l [id number] Ce nter 8-Present Problems Condition Condition Condition Status Onset Resolution Last Treating Co mments Source Name Details Category Date Date Treatment Clinician Date Liver mass Liver mass Disease Active 2019-[address] [facility] Center Cancer of Cancer of Disease Active 2019-[address] [facility] [facility] right right 0-07 [facility] - kidney kidney 00:00: Medical 00 Center Right Right Disease Active [facility] renal mass renal mass 3-19 [facility] - 00:00: Medical 00 Center Sepsis due Sepsis due Disease Active 2017-[address] to to 2 [facility] [place] 00:00: Me dical a coli a coli 00 Center Hemiparesi Hemiparesi Disease Active 2017-[address] s of left s of left 2- Luke [facility] - nondominan nondominan 00:00: Me dical t side as t side as 00 Cent er 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 infarction Acute Acute Disease Active 2017-[address] [facility] [facility] cystitis cystitis 2 [facility] - without without 00:00: Medical hematuria hematuria 00 Cent er Renal mass Renal mass Disease Active 2017-[address] [facility] - 00:[facility]: Medical 00 Center Sepsis Sepsis Disease Active 2017-[address] [facility] 2[facility]07 [facility] - 00:00: Medical 00 Center Allergies, Adverse Reactions, Alerts Allergy Allergy Status Severity Reaction(s) Onset Inactive Treating Comm ents Source Name Type Date Date Clinician Milk Drug Active Other [facility] Allergy 5-29 reaction( [facility] - 00:00: s): Medical 00 diarrhea Center Family History Family Member Diagnosis Comments Start Date Stop Date Source Natural brother Diabetes [facility] Natural brother Hypertension [facility] Natural brother Stroke [facility] Natural father No Known Problem [facility] Natural mother Diabetes [facility] Natural mother Hypertension [facility] Natural sister Diabetes [facility] Natural sister Hypertension [facility] Natural sister Stroke [facility] Social History Social Habit Start Date Stop Date Quantity Comments Source History [facility] Std Drinks [facility] History [facility] - Alcohol Binge Medical [address] [facility] Sex Assigned At [facility] Tobacco use and 2020-05-09 2020-05-09 Never used [facility] - exposure 00:00:00 00:00:00 [facility] Alcohol intake 2020-05-09 2020-05-09 [facility] 00:00:00 non-drinker of Medical Ce nter alcohol (finding) History [facility] 2018-07-09 2018-07-[address] [facility] - Alcohol Frequency 00:00:00 00:00:00 [facility] History of tobacco 2011-07-09 [facility] - use 00:00:00 [facility] Smoking Status Start Date Stop Date Source Former smoker 2020-05-09 00:00:00 2020-05-09 00:00:00 [facility] Medications Ordered Filled Start Stop Current Ordering Indication Dosage Frequency Signature Comments Components Source Medication Medication Date Date Medication? Clinician (SIG) Name Name atorvastati 2019-08 Yes 40mg QD Take [address] n (LIPITOR) 0-08 by mouth Luke s - 40 MG 17:37: daily. Medical tablet [address] [place] lisinopril 2019-08 Yes 40mg QD Take [address] (PRINIVIL,Z 0-08 by mouth Luke s - ESTRIL) 40 17:37: daily. Medic al MG tablet 48 Center aspirin 81 2019-08 Yes 81mg QD Take [address] MG EC 0-08 by mouth [facility] - tablet 17:37: daily. Medical [place] docusate 2019-08 Yes 100mg QD Take [address] sodium 0-08 mg by [facility] - (COLACE) 17:37: mouth Medical 100 MG 48 daily. Center capsule acetaminoph 2019-08 Yes 650mg Take [address] en 0-08 tablets [facility] - (TYLENOL) 00:00: (650 mg Medic al 325 MG 00 total) by Center tablet mouth every 6 (six) hours as needed for Pain. CABOMETYX Yes 1{tbl} QD Take [address] 40 mg Tab 9-17 tablet by [facility] - 00:00: mouth Medical 00 daily. Center pioglitazon 2020- No 1{tbl} Take [address] e-metFORMIN 3-05 11 tablet by Kim kes - (ACTOPLUS 00:00: 00:00 mouth Medica l MET) 15-850 00 :00 daily with Ce nter mg per breakfast. tablet carvedilol 2017-08 Yes 25mg Take 2 [facility] (COREG) 2-14 tablets [facility] - 12.5 MG 00:00: (25 mg Medical tablet 00 total) by Center mouth 2 (two) times daily with breakfast and dinner. JANUVIA 50 2017-08 Yes 50mg QD Take [address] mg tablet 1-20 by mouth [facility] - 00:00: daily. Medical 00 Center pantoprazol Yes 40mg QD Take [address] e 9-19 by mouth [facility] - (PROTONIX) 00:00: daily. Medic al 40 MG 00 Center tablet amLODIPine Yes 10mg QD Take [address] (NORVASC) 9-06 by mouth [facility] - 10 MG 00:00: daily. Medical tablet 00 Center Immunizations Ordered Immunization Filled Immunization Date Status Commen ts Source Name Name Covid-19 Vaccine 2020-11-[address] [facility] - [facility] (Pf) 00:00:00 Medical Center ([facility] Covid-19 Vaccine 2020-10-[address] [facility] - Mrna (Pf) 00:00:00 [facility] ([facility] Vital Signs Vital Name Observation Time Observation Value Comments Source Systolic blood 2020-05-10 16:00:00 113 mm[Hg] [facility] - pressure [facility] Diastolic blood 2020-05-10 16:00:00 66 mm[Hg] [facility] pressure [facility] Heart rate 2020-05-10 16:00:00 77 /min [facility] Body temperature 2020-05-10 16:00:00 35.61 [facility] Respiratory rate 2020-05-10 16:00:00 14 /min [facility] Oxygen saturation in 2020-05-10 16:00:00 98 /min [facility] - Arterial blood by Medical Ce nter Pulse oximetry Body weight 2020-05-10 04:41:00 95.482 kg [facility] BMI 2020-05-10 04:41:00 32.01 kg/m2 [facility] Body height 2020-05-09 20:00:00 172.7 cm [facility] Procedures Procedure Date / Time Performed Performing Clinician [facility] CHEST WITH IV 2021-02-06 12:05:00 Yen, [facility] CT ABDOMEN/PELVIS WITH 2021-02-06 12:05:00 Yen, [facility] CONTRAST [facility] CT ABDOMEN/PELVIS WITH 2020-11-19 11:25:00 Yen, [facility] CONTRAST [facility] CT CHEST WITH IV 2020-11-19 11:25:00 Yen, [facility] POCT-CREATININE 2020-11-19 10:44:00 Yen, [facility] CT ABDOMEN/PELVIS WITH 2020-07-12 11:44:00 Yen, [facility] I [facility] CONTRAST [facility] CT CHEST WITH IV 2020-07-12 11:44:00 Yen, [facility] POCT-CREATININE 2020-07-12 11:07:00 Yen, [facility] CT BIOPSY ABDOMEN 2020-05-10 12:25:00 Redding[place]inda [facility] TISSUE EXAM 2020-05-10 11:54:00 ReddingMelinda [facility] SARS-COV2/RT-PCR ([facility] & 2020-05-10 04:37:00 Redding, Melinda [facility] PROTHROMBIN TIME/INR 2020-05-10 04:01:00 Redding, Melinda [facility] CBC (HEMOGRAM ONLY) 2020-05-10 04:01:00 Redding, Melinda [facility] POCT-GLUCOSE METER 2020-05-09 23:10:00 America MartaBeulahCarter Alejandradanilo [facility] CBC W/PLT COUNT & AUTO 2020-05-09 10:22:00 AlayonLo [facility] APTT 2020-05-09 10:22:00 Terrell Carsonssica [facility] PROTHROMBIN TIME/INR 2020-05-09 10:22:00 Lo [facility] CBC W/PLT COUNT & AUTO 2020-04-20 10:17:00 AlaTerrell rigginsssica [facility] PROTHROMBIN TIME/INR 2020-04-20 10:17:00 AlaLo riggins [facility] APTT 2020-04-20 10:17:00 Yamileth Lo [facility] CBC W/PLT COUNT & AUTO 2020-04-13 11:13[facility] PROTHROMBIN TIME/INR 2020-04-13 11:08:00 [facility] APTT 2020-04-13 11:08:00 [facility] Plan of Care Planned Activity Planned Date Details Comments Source Future Scheduled 2021-04-03 INFLUENZA VACCINE (#1) [facility] Test 00:00:00 [code = INFLUENZA Medical Ce nter VACCINE (#1)] Future Scheduled 2020-08-[address] [facility] - Test 00:00:00 (12+) [code = Medical Center DEPRESSION SCREENING (12+)] Future Scheduled 2016-01-[address] [facility] [facility] - Test 00:00:00 WELLNESS (YEAR 2 or Medical Center FIRST YEAR if no IPPE) [code = MEDICARE ANNUAL WELLNESS (YEAR 2 or FIRST YEAR if no IPPE)] Future Scheduled 2012 SHINGLES VACCINES ([address] [facility] - Test 00:00:00 of 2) [code = SHINGLES Medic al Center VACCINES (1 of 2)] Future Scheduled [address] [facility] - Test 00:00:00 (procedure) [code = Medical Center [id number]] Future Scheduled 1981 DTAP/TDAP/TD VACCINES [facility] - Test 00:00:00 (1 - Tdap) [code = Medical C enter DTAP/TDAP/TD VACCINES (1 - Tdap)] Future Scheduled 1980 HEPATITIS C SCREENING [facility] - Test 00:00:00 [code = HEPATITIS C Medical Center SCREENING] Future Scheduled [address] [facility] - Test 00:00:00 0-64 YRS (1 of 3 - Medical C enter PCV13) [code = PNEUMOCOCCAL VACCINE 0-64 YRS (1 of 3 - PCV13)] Future Scheduled [address] [facility] - Test 00:00:00 [facility]) [code = 464227087] Encounters Start End Encounter Admission Attending Care Care Encounter Source Date/Time Date/Time Type Type Clinicians Facility Department ID 2021-01-22 2021-01-22 Office LOREE Menchaca [id number] 10:51:06 13:05:10 Visit Jaylen Valdes [id number] Laura [id number] [id number] 2020-11-27 2020-11-27 Office Tawanda Bermudez [facility] [id number] 09:48:38 11:14:28 Visit Ishaan Bailey.1.13.21 [id number] [id number] 2020-10-02 2020-10-02 Office Tawanda Bermudez [facility] [id number] 09:52:54 10:12:54 Visit Edward Lucio [id number] [id number] 2020-07-24 2020-07-24 Office Tawanda Bermudez [facility] [id number] 09:42:03 11:50:12 Visit Eddanilo Lucio [id number] [id number] [id number] 530 2020-05-25 2020-05-25 Office Tawanda Bermudez [facility] [id number] 12:15:16 14:16:12 Visit Edward Lucio [id number] [id number] 530 2020-04-27 2020-04-27 Office Tawanda Bermudez [facility] [id number] 09:42:37 10:02:37 Visit Eddanilo Lucio [id number] [id number] [id number] 530 2020-03-23 2020-03-23 Office Tawanda Bermudez [facility] [id number] 09:07:42 10:05:06 Visit Eddanilo Lucio [id number] [id number] [id number] 530 2020-02-10 2020-02-10 Office Tawanda Bermudez [facility] 1.2.840.114 [id number] 09:58:05 11:20:50 Visit Edward Lucio [id number] [id number] [id number] 530 2019-12-02 2019-12-02 Office Claude Bermudez [facility] 1.2.840.114 [id number] 09:52:39 10:12:39 Visit E Lucio [id number] [id number] [id number] 530 2019-10-28 2019-10-28 Office Nikolai [facility] 1.2.840.114 [id number] 08:54:45 09:24:45 Visit Jaylen Lucio [id number] Laura 0.2.7.2.686 [id number] 530 2019-10-07 2019-10-07 [facility] 1.2.840.114 [id number] 11:02:38 13:13:39 Visit Jaylen Valdes [id number] Laura [id number] [id number] 530 2019-09-09 2019-09-09 Office Claude Bermudez [facility] 1.2.840.114 [id number] 09:18:01 12:12:58 Visit Keysha DavisLucio [id number] [id number] 530 2019-09-02 2019-09-02 Office Claude Bermudez [facility] 1.2.840.114 [id number] 12:23:05 13:04:24 Visit E Lucio [id number] [id number] [id number] 530 2019-04-26 2019-04-26 Office Claude Bermudez [facility] 1.2.840.114 [id number] 08:26:03 10:59:55 Visit E Lucio [id number] [id number] [id number] Results Test Test Test Comments Results Result Source Description Time Comments CT, CHEST, WITH 2021-01- [facility], please IV CONTRAST 07 compare to prior. Pt in 17:27:00 wheelchairRestaging RCC, please compare to BAIRON SHEFFI[place] prior. Pt in - MEDICAL wheelchairUnlisted CENTERName: Reason for Exam - Click OSCAR ABDI Yes and Enter Reason RIGOBERTO Below->YesUnlisted : 1960 Reason for Exam->C64.1 Sex: (ICD-10-CM) - Cancer of M right kidney (HCCode)Anesthesia:->No ne FINAL REPORT CT, CHEST, WITH IV CONTRAST, CT, ABDOMEN \\T\\ PELVIS, WITH IV CONTRAST HISTORY: Unlisted Reason for ExamC64.1 (ICD-10-CM) - Cancer of right kidney (HCCode) TECHNIQUE: CT of the chest, abdomen and pelvis is performed with intravenous contrast administration. This exam was performed according to our departmental dose optimization program which includes automated exposure control, adjustment of the mA and/or kV according to patient's size and/or use of iterative reconstructive technique. COMPARISON: CT chest abdomen pelvis 11/19/2020 FINDINGS: The thyroid gland is unremarkable. No supraclavicular adenopathy. Previously noted mildly enlarged right axillary lymph node has resolved. No mediastinal or hilar adenopathy. Three-vessel coronary artery calcifications. Borderline enlargement of the main pulmonary artery. Mild cardiomegaly. A 10 x 5 mm subpleural nodule in the anterior right upper lobe is without convincing change (series 3 image 258). Stable mild scarring in the subpleural left lower lobe/lingula. Scattered solid pulmonary micronodules are unchanged. There is no new mass or consolidation. No effusion. Central airways are patent. In the periphery of right hepatic lobe, again seen is a metastatic deposit measuring approximately 3.3 x 1.9, was 3.4 x 1.7 cm, no convincing change. A 10 mm hyperenhancing focus in segment 2 is also unchanged (coronal image 38) compared with 11/19/2020, previously characterized as a hemangioma. No new liver mass is identified. No biliary ductal dilatation, gallbladder is normal. Previously noted hypoenhancing area in the spleen has mostly resolved, now seen is a very small wedge-shaped hypoenhancing focus, related to a now chronic infarct. Adrenal glands are normal. Infiltrative right renal mass in the right kidney extending to the right renal vein, and IVC is grossly unchanged from 11/19/2020. Multiple small satellite nodules in the perinephric fat and along the pararenal fascia are unchanged. Scattered peritoneal nodules, the largest now measures 2.8 x 2.5 cm (series 1 image 70), previously measured 3.3 x 3 cm. Left kidney is unremarkable. There is no hydronephrosis. No evidence of bowel obstruction or abnormal bowel wall thickening. No evidence for acute appendicitis. Mild prostatomegaly. Ovoid 20 mm focus of hypoattenuation within the left median lobe of the prostate, of uncertain significance. The urinary bladder is unremarkable. No ascites. No new adenopathy. Osseous degenerative changes. No suspicious osseous lesion. IMPRESSION: 1.No convincing change regarding the right renal mass with renal vein and IVC invasion. Retroperitoneal satellite nodules are unchanged. 2.Diminished size of the dominant right-sided peritoneal nodule. 3.Stable right hepatic lobe metastasis. 4.Unchanged solid pulmonary nodules. 5.Previously noted borderline-enlarge d right axillary node has resolved and was most likely reactive. 6. Ovoid 20 mm focus of hypoattenuation within the left median lobe of the prostate, of uncertain significance. A small intraprostatic fluid collection is not excluded, correlate for any signs or symptoms of prostatitis. Signed: Guillermo Mcginnis [facility] Verified Date/Time: 02/06/2021 17:27:30 Reading Location: [facility] [id number] Ortho Consult Reading Room , ABDOMEN 2021-01- Restaging [facility], please 07 compare to prior. Pt in 17:27:00 wheelchairRestaging RCC, please compare to [place] prior. Pt in - MEDICAL wheelchairUnlisted CENTERName: Reason for Exam - Click OSCAR ABDI Yes and Enter Reason RIGOBERTO Below->YesUnlisted : 1960 Reason for Exam->C64.1 Sex: (ICD-10-CM) - Cancer of M right kidney (HCCode)Will this procedure require oral FINAL contrast?->Yes REPORT CT, CHEST, WITH IV CONTRAST, CT, ABDOMEN \\T\\ PELVIS, WITH IV CONTRAST HISTORY: Unlisted Reason for ExamC64.1 (ICD-10-CM) - Cancer of right kidney (HCCode) TECHNIQUE: CT of the chest, abdomen and pelvis is performed with intravenous contrast administration. This exam was performed according to our departmental dose optimization program which includes automated exposure control, adjustment of the mA and/or kV according to patient's size and/or use of iterative reconstructive technique. COMPARISON: CT chest abdomen pelvis 11/19/2020 FINDINGS: The thyroid gland is unremarkable. No supraclavicular adenopathy. Previously noted mildly enlarged right axillary lymph node has resolved. No mediastinal or hilar adenopathy. Three-vessel coronary artery calcifications. Borderline enlargement of the main pulmonary artery. Mild cardiomegaly. A 10 x 5 mm subpleural nodule in the anterior right upper lobe is without convincing change (series 3 image 258). Stable mild scarring in the subpleural left lower lobe/lingula. Scattered solid pulmonary micronodules are unchanged. There is no new mass or consolidation. No effusion. Central airways are patent. In the periphery of right hepatic lobe, again seen is a metastatic deposit measuring approximately 3.3 x 1.9, was 3.4 x 1.7 cm, no convincing change. A 10 mm hyperenhancing focus in segment 2 is also unchanged (coronal image 38) compared with 11/19/2020, previously characterized as a hemangioma. No new liver mass is identified. No biliary ductal dilatation, gallbladder is normal. Previously noted hypoenhancing area in the spleen has mostly resolved, now seen is a very small wedge-shaped hypoenhancing focus, related to a now chronic infarct. Adrenal glands are normal. Infiltrative right renal mass in the right kidney extending to the right renal vein, and IVC is grossly unchanged from 11/19/2020. Multiple small satellite nodules in the perinephric fat and along the pararenal fascia are unchanged. Scattered peritoneal nodules, the largest now measures 2.8 x 2.5 cm (series 1 image 70), previously measured 3.3 x 3 cm. Left kidney is unremarkable. There is no hydronephrosis. No evidence of bowel obstruction or abnormal bowel wall thickening. No evidence for acute appendicitis. Mild prostatomegaly. Ovoid 20 mm focus of hypoattenuation within the left median lobe of the prostate, of uncertain significance. The urinary bladder is unremarkable. No ascites. No new adenopathy. Osseous degenerative changes. No suspicious osseous lesion. IMPRESSION: 1.No convincing change regarding the right renal mass with renal vein and IVC invasion. Retroperitoneal satellite nodules are unchanged. 2.Diminished size of the dominant right-sided peritoneal nodule. 3.Stable right hepatic lobe metastasis. 4.Unchanged solid pulmonary nodules. 5.Previously noted borderline-enlarge d right axillary node has resolved and was most likely reactive. 6. Ovoid 20 mm focus of hypoattenuation within the left median lobe of the prostate, of uncertain significance. A small intraprostatic fluid collection is not excluded, correlate for any signs or symptoms of prostatitis. Signed: Guillermo Mcginnis [facility] Verified Date/Time: 02/06/2021 17:27:30 Reading Location: [address] Ortho Consult Reading Room Chest with 2021-01- Interface, [facility] IV Contrast 07 External Ris In - [facility] - 17:27:00 02/06/2021 5:29 Medical PM CDTFINAL REPORT Center CT, CHEST, WITH IV CONTRAST, CT, ABDOMEN \\T\\ PELVIS, WITH IV CONTRAST HISTORY: Unlisted Reason for ExamC64.1 (ICD-10-CM) - Cancer of right kidney (HCCode) TECHNIQUE: CT of the chest, abdomen and pelvis is performed with intravenous contrast administration. This exam was performed according to our departmental dose optimization program which includes automated exposure control, adjustment of the mA and/or kV according to patient's size and/or use of iterative reconstructive technique. COMPARISON: CT chest abdomen pelvis 11/19/2020 FINDINGS: The thyroid gland is unremarkable. No supraclavicular adenopathy. Previously noted mildly enlarged right axillary lymph node has resolved. No mediastinal or hilar adenopathy. Three-vessel coronary artery calcifications. Borderline enlargement of the main pulmonary artery. Mild cardiomegaly. A 10 x 5 mm subpleural nodule in the anterior right upper lobe is without convincing change (series 3 image 258). Stable mild scarring in the subpleural left lower lobe/lingula. Scattered solid pulmonary micronodules are unchanged. There is no new mass or consolidation. No effusion. Central airways are patent. In the periphery of right hepatic lobe, again seen is a metastatic deposit measuring approximately 3.3 x 1.9, was 3.4 x 1.7 cm, no convincing change. A 10 mm hyperenhancing focus in segment 2 is also unchanged (coronal image 38) compared with 11/19/2020, previously characterized as a hemangioma. No new liver mass is identified. No biliary ductal dilatation, gallbladder is normal. Previously noted hypoenhancing area in the spleen has mostly resolved, now seen is a very small wedge-shaped hypoenhancing focus, related to a now chronic infarct. Adrenal glands are normal. Infiltrative right renal mass in the right kidney extending to the right renal vein, and IVC is grossly unchanged from 11/19/2020. Multiple small satellite nodules in the perinephric fat and along the pararenal fascia are unchanged. Scattered peritoneal nodules, the largest now measures 2.8 x 2.5 cm (series 1 image 70), previously measured 3.3 x 3 cm. Left kidney is unremarkable. There is no hydronephrosis. No evidence of bowel obstruction or abnormal bowel wall thickening. No evidence for acute appendicitis. Mild prostatomegaly. Ovoid 20 mm focus of hypoattenuation within the left median lobe of the prostate, of uncertain significance. The urinary bladder is unremarkable. No ascites. No new adenopathy. Osseous degenerative changes. No suspicious osseous lesion. IMPRESSION: 1.No convincing change regarding the right renal mass with renal vein and IVC invasion. Retroperitoneal satellite nodules are unchanged. 2.Diminished size of the dominant right-sided peritoneal nodule. 3.Stable right hepatic lobe metastasis. 4.Unchanged solid pulmonary nodules. 5.Previously noted borderline-enlarge d right axillary node has resolved and was most likely reactive. 6. Ovoid 20 mm focus of hypoattenuation within the left median lobe of the prostate, of uncertain significance. A small intraprostatic fluid collection is not excluded, correlate for any signs or symptoms of prostatitis. Signed: Guillermo Mcginniseport Verified Date/Time: 02/06/2021 17:27:30 Reading Location: [facility] C013X [facility] Consult Reading Room 2021-01- Interface, [facility] St Abdomen/Pelvis 07 External Ris In - Carmen es - with IV 17:27:00 02/06/2021 5:29 Medical Contrast PM CDTFINAL REPORT Center CT, CHEST, WITH IV CONTRAST, CT, ABDOMEN \\T\\ PELVIS, WITH IV CONTRAST HISTORY: Unlisted Reason for ExamC64.1 (ICD-10-CM) - Cancer of right kidney (HCCode) TECHNIQUE: CT of the chest, abdomen and pelvis is performed with intravenous contrast administration. This exam was performed according to our departmental dose optimization program which includes automated exposure control, adjustment of the mA and/or kV according to patient's size and/or use of iterative reconstructive technique. COMPARISON: CT chest abdomen pelvis 11/19/2020 FINDINGS: The thyroid gland is unremarkable. No supraclavicular adenopathy. Previously noted mildly enlarged right axillary lymph node has resolved. No mediastinal or hilar adenopathy. Three-vessel coronary artery calcifications. Borderline enlargement of the main pulmonary artery. Mild cardiomegaly. A 10 x 5 mm subpleural nodule in the anterior right upper lobe is without convincing change (series 3 image 258). Stable mild scarring in the subpleural left lower lobe/lingula. Scattered solid pulmonary micronodules are unchanged. There is no new mass or consolidation. No effusion. Central airways are patent. In the periphery of right hepatic lobe, again seen is a metastatic deposit measuring approximately 3.3 x 1.9, was 3.4 x 1.7 cm, no convincing change. A 10 mm hyperenhancing focus in segment 2 is also unchanged (coronal image 38) compared with 11/19/2020, previously characterized as a hemangioma. No new liver mass is identified. No biliary ductal dilatation, gallbladder is normal. Previously noted hypoenhancing area in the spleen has mostly resolved, now seen is a very small wedge-shaped hypoenhancing focus, related to a now chronic infarct. Adrenal glands are normal. Infiltrative right renal mass in the right kidney extending to the right renal vein, and IVC is grossly unchanged from 11/19/2020. Multiple small satellite nodules in the perinephric fat and along the pararenal fascia are unchanged. Scattered peritoneal nodules, the largest now measures 2.8 x 2.5 cm (series 1 image 70), previously measured 3.3 x 3 cm. Left kidney is unremarkable. There is no hydronephrosis. No evidence of bowel obstruction or abnormal bowel wall thickening. No evidence for acute appendicitis. Mild prostatomegaly. Ovoid 20 mm focus of hypoattenuation within the left median lobe of the prostate, of uncertain significance. The urinary bladder is unremarkable. No ascites. No new adenopathy. Osseous degenerative changes. No suspicious osseous lesion. IMPRESSION: 1.No convincing change regarding the right renal mass with renal vein and IVC invasion. Retroperitoneal satellite nodules are unchanged. 2.Diminished size of the dominant right-sided peritoneal nodule. 3.Stable right hepatic lobe metastasis. 4.Unchanged solid pulmonary nodules. 5.Previously noted borderline-enlarge d right axillary node has resolved and was most likely reactive. 6. Ovoid 20 mm focus of hypoattenuation within the left median lobe of the prostate, of uncertain significance. A small intraprostatic fluid collection is not excluded, correlate for any signs or symptoms of prostatitis. Signed: [facility] Verified Date/Time: 02/06/2021 17:27:30 Reading Location: [address] Ortho Consult Reading Room , ABDOMEN 2020-11- Unlisted Reason for 19 Exam - Click Yes and 13:06:00 Enter Reason Below->YesUnlisted [facility] Reason for - MEDICAL Exam->C64.1Will this CENTERName: procedure require oral OSCAR ABDI contrast?->Yes RIGOBERTO : 1960 Sex: M FINAL REPORT CT of the chest, abdomen and pelvis, with contrast Clinical History: Unlisted Reason for ExamC64.1 Technique: CT of the chest, abdomen and pelvis is performed with intravenous contrast administration. This exam was performed according to our departmental dose optimization program which includes automated exposure control, adjustment of the mA and/or kV according to patient's size and/or use of iterative reconstructive technique. Comparison Film: July 12, 2020 and May 10, 2020 Discussion: Visualized thyroid gland is normal. No supraclavicular adenopathy. There is interval enlargement of a right axillary lymph node, measuring approximately 1 cm. No mediastinal or hilar adenopathy. The main pulmonary artery is enlarged measuring 3.4 cm. Heart is also enlarged, trace pericardial effusion. A 7 mm subpleural nodule in the anterior right upper lobe is unchanged (image 34). Stable mild scarring in the left lower lung. Scattered tiny pulmonary nodules are unchanged. There is no new mass or consolidation. No effusion. Central airways are patent, no bronchiectasis, or bronchial wall thickening. In the periphery of right hepatic lobe, again seen is a metastatic deposit measuring approximately 3 x 1.8 cm. No new liver mass is identified. No biliary ductal dilatation, gallbladder is normal. A hypoenhancing area in the spleen is new, measuring up to 3.8 cm, somewhat wedge-shaped, most likely an infarct. Adrenal glands are normal. Infiltrative right renal mass in the right kidney extending to the right renal vein, and IVC appear grossly unchanged. Multiple satellite nodules in the perinephric region are also unchanged. There are several right-sided peritoneal nodules, the largest measures 3.3 x 3 cm, previously it measures 2.6 x 2.5 cm; however now it appears centrally necrotic. Left kidney is unremarkable. There is no hydronephrosis or radiopaque stone. No evidence of bowel obstruction or abnormal bowel wall thickening. No pericecal inflammatory change. In the pelvis, bladder is unremarkable. The prostate gland is slightly enlarged. No ascites. No new adenopathy. Bony structures demonstrate advanced degenerative changes. No destructive bony lesion is identified. Impression: Grossly stable appearance of right renal mass with renal vein IVC invasion. Retroperitoneal satellite nodules are unchanged. A dominant right-sided peritoneal deposit is slightly larger, but demonstrates increased central necrosis. Stable right hepatic lobe metastatic deposit. New hypodensity in the spleen is somewhat wedge-shaped, favor an infarct, less likely metastatic disease. This is amenable to follow-up. Stable pulmonary nodules. A right axillary node has become borderline enlarged, a nonspecific finding, also amenable to follow-up. Signed: Lizzette Smith Verified Date/Time: 11/19/2020 13:06:19 Reading Location: [facility] B1 C013X Ortho Consult Reading Room , CHEST, WITH 2020-11- Unlisted Reason for IV CONTRAST 19 Exam - Click Yes and 13:06:00 Enter Reason Below->YesUnlisted [facility] Reason for Exam->C64.1 - MEDICAL CENTERName: OSCAR ABDI : 1960 Sex: M FINAL REPORT CT of the chest, abdomen and pelvis, with contrast Clinical History: Unlisted Reason for ExamC64.1 Technique: CT of the chest, abdomen and pelvis is performed with intravenous contrast administration. This exam was performed according to our departmental dose optimization program which includes automated exposure control, adjustment of the mA and/or kV according to patient's size and/or use of iterative reconstructive technique. Comparison Film: July 12, 2020 and May 10, 2020 Discussion: Visualized thyroid gland is normal. No supraclavicular adenopathy. There is interval enlargement of a right axillary lymph node, measuring approximately 1 cm. No mediastinal or hilar adenopathy. The main pulmonary artery is enlarged measuring 3.4 cm. Heart is also enlarged, trace pericardial effusion. A 7 mm subpleural nodule in the anterior right upper lobe is unchanged (image 34). Stable mild scarring in the left lower lung. Scattered tiny pulmonary nodules are unchanged. There is no new mass or consolidation. No effusion. Central airways are patent, no bronchiectasis, or bronchial wall thickening. In the periphery of right hepatic lobe, again seen is a metastatic deposit measuring approximately 3 x 1.8 cm. No new liver mass is identified. No biliary ductal dilatation, gallbladder is normal. A hypoenhancing area in the spleen is new, measuring up to 3.8 cm, somewhat wedge-shaped, most likely an infarct. Adrenal glands are normal. Infiltrative right renal mass in the right kidney extending to the right renal vein, and IVC appear grossly unchanged. Multiple satellite nodules in the perinephric region are also unchanged. There are several right-sided peritoneal nodules, the largest measures 3.3 x 3 cm, previously it measures 2.6 x 2.5 cm; however now it appears centrally necrotic. Left kidney is unremarkable. There is no hydronephrosis or radiopaque stone. No evidence of bowel obstruction or abnormal bowel wall thickening. No pericecal inflammatory change. In the pelvis, bladder is unremarkable. The prostate gland is slightly enlarged. No ascites. No new adenopathy. Bony structures demonstrate advanced degenerative changes. No destructive bony lesion is identified. Impression: Grossly stable appearance of right renal mass with renal vein IVC invasion. Retroperitoneal satellite nodules are unchanged. A dominant right-sided peritoneal deposit is slightly larger, but demonstrates increased central necrosis. Stable right hepatic lobe metastatic deposit. New hypodensity in the spleen is somewhat wedge-shaped, favor an infarct, less likely metastatic disease. This is amenable to follow-up. Stable pulmonary nodules. A right axillary node has become borderline enlarged, a nonspecific finding, also amenable to follow-up. Signed: Lizzette Smith MDReport Verified Date/Time: 11/19/2020 13:06:19 Reading Location: [facility] C013X [facility] Consult Reading Room -Creatinine 2020-11-19 10:57:00 Test Item Value Reference Range Interpretation Comme nts POC-Creatinine (test code = 0.8 mg/dL 0.6-1.3 : TESTED AT [facility] [address]) [facility] A, [facility] [id number]: Side Door Man/Techni vipin ID = [id number] for FLORENCE FLORENCE POC-EGFR (test code = 1860) 120 mL[facility]min/1.73M2 [id number] 10:57:00 Test Item Value Reference Range Interpretation Comments POC-CREATININE 0.8 mg/dL 0.6-1.3 : TESTED AT [facility] ([facility]) (test [address] [facility] code = 1859) A, [facility] [address]: Side Door Man/Techni vipin ID = [id number] for FLORENCE FLORENCE POC-EGFR 120 mL/min/1.73M2 ([facility]) (test code = 1860) CT, [id number] 14:49:00Unlisted Reason for Exam - Click Yes and Enter Reason Below->YesUnlisted Reason for Exam->c64.1 [facility] 1960 Sex: MFINAL REPORT CT Chest, abdomen, and pelvis with contrast History:Renal cell carcinoma Comparison:02/15/2020 Technique: serial axial imaging was performed following upto 100cc of non ionic iodinated intravenous contrast as per departmental protocol. Multiplanar images are reconstructed and reviewed when indicated. This CT examination is performed using one or more of the following dose reduction techniques: Automated exposure control, adjustment of the mA and /or kV according to patient size, and/or use of iterative reconstruction technique. Findings:No mediastinal or hilar lymphadenopathy. Normal size heart. No pericardial effusion. No thoracic aortic aneurysm or dissection. No central pulmonary arterial filling defect. Patent central airways. No pleural effusion or pneumothorax. There are multiple bilateral stable subcentimeter pulmonary noduleswhich measure up to 7 mm in size. No new pulmonary opacity is seen. Unremarkable appearance of pancreas and spleen. The previous focus of enhancement within the periphery of segment 7/6 of the liverdemonstrates no significant change in size. The liver and gallbladder are otherwise unremarkable. Again noted is a recurrent tumor within the inferior aspect of the right kidney extending into the right renal vein and inferior vena cava. There are also surrounding satellite tumor nodules within the right pararenal space. These lesions demonstrate a slight decrease in size. For example, tumor nodulewithin the right pararenal space on axial image 67 currently measures 0.9 cm, previously 1.5 cm. Unremarkable appearance of the adrenal glands, left kidney, ureters, and urinary bladder. . No small orlarge bowel obstruction. No apparent bowel wall thickening. No findings to indicate acute appendicitis. Peritoneal nodules have decreased in size. For example, nodule within the right paracolic gutter currently measures 16 mm in size, previously 2.4 cm. No abdominal aortic aneurysm. No aggressive osseous lesion. Impression: 1. Interval decrease in size of recurrent tumor within the inferior right kidney as well as additional tumor nodules within the retroperitoneum and peritoneal surface.2. Previous focus of enhancement, likely metastatic, within the periphery of segment 7/6 of the liver demonstrates no significant change in size.3. Stable bilateral pulmonary nodules. Signed: Chandler Perales MDReport Verified Date/Time: 07/12/2020 14:49:15 Reading Location: [address] Consult Reading Room CT, CHEST, WITH IV [id number] 14:49:00Unlisted Reason for Exam - Click Yes and Enter Reason Below- >YesUnlisted Reason for Exam->c64.1 [facility] 1960 Sex: MFINAL REPORT CT Chest, abdomen, and pelvis with contrast History:Renal cell carcinoma Comparison:02/15/2020 Technique: serial axial imaging was performed following upto 100cc of non ionic iodinated intravenous contrast as per departmental protocol. Multiplanar images are reconstructed and reviewed when indicated. This CT examination is performed using one or more of the following dose reduction techniques: Automated exposure control, adjustment of the mA and /or kV according to patient size, and/or use of iterative reconstruction technique. Findings:No mediastinal or hilar lymphadenopathy. Normal size heart. No pericardial effusion. No thoracic aortic aneurysm or dissection. No central pulmonary arterial filling defect. Patent central airways. No pleural effusion or pneumothorax. There are multiple bilateral stable subcentimeter pulmonary noduleswhich measure up to 7 mm in size. No new pulmonary opacity is seen. Unremarkable appearance of pancreas and spleen. The previous focus of enhancement within the periphery of segment 7/6 of the liverdemonstrates no significant change in size. The liver and gallbladder are otherwise unremarkable. Again noted is a recurrent tumor within the inferior aspect of the right kidney extending into the right renal vein and inferior vena cava. There are also surrounding satellite tumor nodules within the right pararenal space. These lesions demonstrate a slight decrease in size. For example, tumor nodulewithin the right pararenal space on axial image 67 currently measures 0.9 cm, previously 1.5 cm. Unremarkable appearance of the adrenal glands, left kidney, ureters, and urinary bladder. . No small orlarge bowel obstruction. No apparent bowel wall thickening. No findings to indicate acute appendicitis. Peritoneal nodules have decreased in size. For example, nodule within the right paracolic gutter currently measures 16 mm in size, previously 2.4 cm. No abdominal aortic aneurysm. No aggressive osseous lesion. Impression: 1. Interval decrease in size of recurrent tumor within the inferior right kidney as well as additional tumor nodules within the retroperitoneum and peritoneal surface.2. Previous focus of enhancement, likely metastatic, within the periphery of segment 7/6 of the liver demonstrates no significant change in size.3. Stable bilateral pulmonary nodules. Signed: Chandler Perales MDReport Verified Date/Time: 07/12/2020 14:49:15 Reading Location: [facility] C013X [facility] Consult Reading Room [id number] 11:20:00 Test Item Value Reference Range Interpretation Comments POC-CREATININE 0.8 mg/dL 0.6-1.3 : TESTED AT [facility] ([facility]) (test [address] code = 1859) A, [place] [address]: Side Door Man/Techni vipin ID = [id number] for FLORENCE FLORENCE POC-EGFR 121 mL/min/1.73M2 [facility] (test code = 1860) Tissue [id number] 05:43:00 Test Item Value Reference Range Interpretation Comments Case Report (test code Surgical Pathology = 104) Report Case: [id number] Authorizing Provider: Melinda Redding MD Collected: 05/10/2020 11:54 AM Ordering Location: [address] Received: 05/10/2020 12:35 PM Service Pathologist: Ruiz Retana MD Specimen: Abdominal, peritoneal mass biopsy DIAGNOSIS (test code = [id number] 3220) FuZzEwMzNcZnRuYmpcdWMx IHtccnRmMVxlcGljOTIwMF dcsfWpOSHvzBAuL8Xeeuuy AZupIG0lEP0inNdhtLHlyA TkZRQeScOny9vij593yVNz s8ksTIIUujasdDz1pQvpM4 1fa2N0RvfhG93rtCIoPEie bGFpblxmczIwIFBBUlQgQS VBNSJANH5UYRTVTW7JF5Wo AOQQF6IDXWlzhQEjLSYNWg RGWOWZHDmrH6PVQ0oQR97O MuwtVBIvC9MCQDMZPAvMC5 SQHKHgE59LGRIZSX1xrOJa oBjpdhOkULvdi2JzRYjjEU CuAD5zdAubUQUtZG6rXJRf J2vfbJ2zyrn3OsYpRDRnDg N8QMUtomD8Eid1XWVjVZkd g3ggv6HcODYuHVw9sEfiAs FiBHLqs0mcnkDcDkKuGAVu BRQqUYWmnCUoZ631v3fws9 lkahYpuZO9RXXcDZE4JOcj doPyipJ5TPmrlNXuDuS6CN tccmVkMFxncmVlbjBcYmx1 VYCgC547MRP9hTjbf5osFO J0DEWpBCQcVhAcQe4tvLJo N640UYQlTQCDMKRceTh3TM SyenKsgtAayQZPs358J655 p2abOJNcdgIyrKhRztops9 kaJ518CMUbaXDureGjDiMj JOYmlLSruQL4VPFqHD0hki jsMDuyJZvtMLXvucA8OELz sHVdK4AzZWOsRA8enwysOU I4SYtoNICmKUM7ZeTfUZPs c3Smmxg7LjNrld5tgd12EK N8m6KmcHryZHL7TMK3SaRc Bs7jzJZeHVUhVT4iLsGmwC LcVDDsfd93xKktJSupAMF0 TSApqqLbq9Rro4onTuCtpy CbH3ozI9MpKEWjELQjFDPn GiUkfdQdj1Yei8DeuGBuoK j0x6jmAMHvNWUotZkym3bi LXI4XVMdzCLoX5bkuI0tFY XiBK6tabuyr7neHQsmRSju NMJolTF1puG2HIUatVJaL1 MpiL7yPISqIHniVQHmjmb2 TbAqJd5knHFehHodFRakOz twYWdlXHBnbmNvbnRccGdu ZGVjXHBsYWluXHBsYWluXG YwXGZzMjRccWxcbGFuZzEw MzNcaGljaFxmMVxkYmNoXG WhWYcwQ5ksPsZiJjHdRgb1 BDVaeSHyTQUyKvq0SMCcbF MiAUEHxYznaG1qUCQdaYga nH2ukWG5URDgrpDqeIUGpG 0fPSUMtV7jBoQ8DcNiViK6 HEV4TQFfqAPhrK6= COMMENT (test code = [id number] 3355) Gjg4yre9YahVOpeDUpHRyf iDAwcbJflj94cHR1dT93FU 3fJXBsJnT5ZXLfxtI7Ywv1 IEInDOSzkLLwR812l0tta4 ikzuIisWE0dIakNOUfZVMi CUxdBCTwVfFcJBysqO2yh7 osD4PuGFDcR6Tki93eXDZd lE8ga6WvEWFeXOQpN03jKB XpBIFcwELiZsfmiAF0WZ3b IHSvi9A5IAUoflZdmEKoNV TfaPPtIWP9yFUxoTczyaQa so44gZRytBNyq8ExWWElBJ A7lJ1jjbHcWUrjhgGbFAIp TIJmV0ooGVQaK1FrxVCuh5 EtrP0uf0d4AuLWaO61th8d vIZ3n3BiBJ6qF6SvSAJ5eT JzRPKnoWYgNl7twDLxBZ1z VQEkr1SpHTCjAHSdeE0ov4 RyKNUqEQFpQRO1lQ4oijJz VHsunvG4weFwWZQok7XbiA c4XBVys8EuNCKCXZHsezZx XX2RZ2GsTXBbqQKpyHdstT Sgi8t3kXT5tMFfgcKys6M3 ACPpY6tolezsQXhpuUiffI 5cuRQwPoJrMU8aaTHrOWcg SAEfkdDewo9wSF5fECYdtp 0= CPT Code(s) (test code w9lycDHhNQJroPP5WpPqYX = 3353) Qcs1vqk8ClzATlxNUoQNja oBElpxYlap10qFR0nT98TW 0fUSVcBvJ7WNJnjrM5Lyj8 SVNyHRCyvUMgA250c4awh5 zjznCizAR3lZvnEDRzXPFu YWluXGZzMjAgODgzMDUsID n4PrNiVDF8DCR7PBfuYGF5 CLINICAL HISTORY (test x9yerYQdTJNkgFWrGhFxYO code = 3356) NkZZIua7tnYQAxpUZzBfYn MzNcZnRuYmpcdWMxXGRlZm Deq9hlx855lJIrw8smSNGh RnE3sUNrAYSqnGGpY188n6 yfc9lxgfXgiLN0WYJuZWN1 OIujyjKedsO5NAbnzFVcAl U1BBpklhCeNQnuncJygoSz Rjl8IISuD953DNR1iAxsv6 yhJRU8ZSIeUVZuKiWiOt3b cYVuU656GDLdUKHZVQWetN y0LYManaPnoiPpeDFDq792 Z141y0axSTUpzeKetXoRvv lyn7ktG378TTNsbUOsczDt MuZqXETacMFvoQY6VIVtXI 0tdfxbYhDtJQ7ffxrpUbLg PY0dszx0PkSvQJ5qyhvrYs NeQEnhNRUjnwkfOHEfi0Ia jdhkLO0vX6Xfm2B8iN1roQ BgFDAcpBOhSoSmKBYhll9t pPYzLMyxi7UpLHB6lmI7lA GjvWLkEPQcEL62Exruz6Vd YnciRGI2UJObelRzs3Khd5 ocEmFtuuEtK6unW7JdUXZa HUIxKKTpGhVjgnWtu5Iln5 IgnAFofZa4b2ihXYOrCHSk iXfmh8ybLHX5BXTaE7O0rY Pgy9kwSMwnHFFblHO9mtsc PEvnYEClppG2vonnSIxyAJ EpyMF0sgsmRVxrHHTwTtO2 nchnVThbWAFeAAV4BBmic7 81VMC9AHzpQbwfUWbaYPNm bmNvbnRccGduZGVjXHBsYW luXHBsYWluXGYwXGZzMjRc eBgulIamcC1pIbXxDrQiZJ tkIN9aOMXfQ7weeAYoLSOi IVFdW2dpXcQbjF6giFyjGD sshyGhJPLkIWMrJKkgBC2p VPHjoXddgtMpaHmceZ7lbD 5ccGFyfQ== SPECIMEN SOURCE (test t4foaACgTTJxjYT4IcPyIA code = 3377) Lyz9lei8QyzUQoxBCmFSqu eDQpokArmb17xKW9aA45NR 7bZTUvLfU7IDMgsyH7Opk0 WBEzIXYooGSwV235e8qys0 sumfTmhRB3zAvdZGXpLAKw YWluXGZzMjAgUGVyaXRvbm VhbCBtYXNzXHBhcn0= GROSS DESCRIPTION (test v5bnaRRpTZPtoJLaLiFtTV code = 3366) EdVRDwd8ieTTKufECmUyVl MzNcZnRuYmpcdWMxXGRlZm Xur9clv124nOTzw8glUYUq YpT8nXMwDJKqfXEqM632d7 tta8cmyfUgdDD4RDZcAJE8 JIdyczBtwaY2EDlzbKFqFa Z1PDwhfmEiHTwycjZtqiFj Aal4CNRiI949NKL6eQfdx4 gaCSL5SMBuBJXoIuFbXw1m hZEmG882XZCuGQIINCZdfR n5TTMnriDhixUijZGGb510 G936a9rjDLDwhhQrbGgVib obw8jvV551ATXncTYoqjSh WkRxRAPepVCupCT7RQOcDF 1xkkvtRwBbRQ0ahneuMhCo BC2egrg1GpQxLG2brfzoRu PpFHdgICUmsttzNSGde5St fiyoYN6pX6Cra7J9wB4opJ XgHRIrjEOkWcQbCNDjpm7x rITuJMfyg4XcEBH5rtV6xG EngFBvBRKdQK37Xfhxx0Yl CsrtJHU1WKSexvEhc9Tex4 lmDsQvbiEcY9swY2LlJEHw SFSfAGIxPuJaytLqg1Oir6 IwqONxfSs2w6vkNBGuMAUa hUpzo2tiJEJ4OPObP6B1oZ Hov0tzGHiaUTVgkMY6rppb IUxfSZGxjbE1bmikRZfdAH DqeNC8ktuqGZymCJSnKjU7 lihmPCboHLDpBZM0UShho1 44LIS9XOqdHqluNIwiBBFu bmNvbnRccGduZGVjXHBsYW luXHBsYWluXGYwXGZzMjRc bHRycGFyXHFsXHBsYWluXG YwXGZzMjBcbGFuZzEwMzNc aGljaFxmMFxkYmNoXGYwXG fpS7unCsBxUmOhSGPLSPAx fGIeGXHfhuRlj7ZeFRfnyf BsYWJlbGVkIHdpdGggdGhl PGFilUvxkjBbnqSvTB3cRM ThHBUrW4NaZGWzR76tHIPr bQ5uNJYvQE2sPQLcSwQnjU oxFOsdGTIdJFM0o39bqPjy D7NwOA5qNOPrvq47kMe9PP Loz3N2JKZpl4W4WUI8oMF4 AE4fKWJ6yqKfVJ24YUayRG 43YEskJY2wBFYpGDaoGOEv Y4CbT8V1NT4cELvxGQBuRR GidLXxYVkkQND5Dv8mtKTg CDZbdnJ1n5StJTUkhCkgs4 doTwYfzHe2jkY7zV4uCLif YDWim6ZjrYHrHFYgPmEWEH IvZXcgXHBhcn0= MICROSCOPIC DESCRIPTION e9pdlGAtEFImnWY7NyDgDF (test code = 3371) Chc3cpq2LkiSLmsODdBXxb wXDomjNstr26aRC5pR06LT 6cOBAmMnP4EZWtdqE6Meo1 YQPoPLJxvNJkY556f8grh4 vbvpWiyHY0jAcmNIXiYEFt IGkvMGSjVoOeROHaVl9feX VkLiBccGFyfQ== SPECIAL STUDIES (test a7shsPHdRJNcbKL3QjFjFC code = 3376) Dlo5nrk6NrbSBaoMTkZFxj cWBhrbIfvi59bBR7jF69MI 1jDARbTlS1OJWahaC7Nxr5 KRIhZOAgoTMbT962IVGmAM VurPrgtce3oN63WOEcfC1r pJIzNLx6XALtzvWiuGxxzQ 0uOlWuWqYeCcGWaBNpmD09 SWZrhnU2OOBfs79uu5ZlvO grjwYdCABgDChqD3p9GGRj OKJiUJO1x5Bal8PiqT4jkM 5ujQyleJ9btPCttXI5qzfd a7Fau1RxX9zwrOAtwHDdfe ObSWOnzlSHKX3MIrUNZS3j DOKWOVlnRV3WU5YcrGUjMZ GlkbDim3wmI4ymTQUxUBZ4 FU3ezlZjSqQkIJ5pyO70c0 Hfo40dd42orR9xxMKcclUf T08lnDOpzCEfn8PtQXQwzu KhsFH6EKCzSPhspfevq2v1 yMW1ePKmjHAiiHZ1rKAzgD WjGXSXbNMlZPBoy338vg1n RIFmmTFuwbAjxZ8eUPozvv lyqRQqQD8zMWMtWXBwACMi KV07qjIwPW9pzXZlr3mbbg LurIVyv5DgcTA1XUSbyIZy wiszBu7sGB05IVLcLHnlpO 7zqMTrlkApQG9hNR0kJ9P2 jMJeVHTuwlOlg1tvXEbfOQ 4gYXZhaWxhYmxlIGFyZSBl krMxrZA4OMGayBFbBNLcqO CcDQnjiPLbr9ell4NrU6ll zEkbrPY1QYWmG4rgiMExfQ V5HSX2zG0hURtipsDlVOCf c6NkMIFeKMExRoG1fX3gSV Z1UiAMmQimLQQ1AkN8QXno BBKhQQ7sEKiqLLvfC4HqlI YnYLYJNKQdr7btY6fdEQQx n9PduV8qxBL1lCNmASRlaS Y1GJFzXEH7FZmrhFLvNDJv RBVqyYTjyMJnHn3boGIrB2 JbY8jjpuQlbLSsbHA0hUDd IRaxivOuFQZ3VYBycM5mPJ 1kXUMxcEHzIH9mzLWlTMZp DRTdMGEuUYDvk2PmBCGsam 33MRTrCkgnuGuyOUTcDx6l Vl8bSMYzpwCvLCW8ApMWWB 1qqvateKZoyImjxi5zPMbs GVFLRBKsXRTtYLD9KRKvkB 8kPOU4rJH6FVT0D6bcK0sw EBGuklUwPU8eGCSzhBXtbn IjJRuqIJ7nqMSrNKQtl1Nx rigkYRScRQO7VDY2AOlvIR DoYFIuIj8lXQGymZ9dX3Qm EWI2yaTjy4JdJoTFqANxxR 76bTUciy97EGSrGBQcI8Nd ZGVkIGFzIGludmVzdGlnYX Gqt56mhZVyqxXjr8XobvGq KTOrY9waWIJksKVyqFLrz0 EebR0geYPaixYgRDS6pMYr KEMdpP7vTFDrrUrjOPHjlJ 9hC9LiVFedXl2nHBGleoam EO2jqn72DU3gqdWzEX1sfg FaRF35ppYlKyVjZYu5LTsY XPaGPQc1ECWnhbSrnVAulX BfAQRsmC4cpZPcKq8msVMv aWdoIGNvbXBsZXhpdHkgY2 rekphcAXebzHWzd8JafN7u xPF1ZSI1vK1oWohsZKY5 Gross assessment was [facility] performed at ([facility], = [phone]) Department of Pathology, [address] [place] [address], Technical component was [facility] [facility] performed at ([facility], = 2778) Department of Pathology, [address] [place] [address], Professional component [facility] was performed at ([facility], code = 2779) Department of Pathology, [address] [place] [address], [facility] [id number] 05:43:00Surgical Pathology Report Case: [id number] Authorizing Provider: Melinda Redding MD Collected: 05/10/2020 11:54 AM Ordering Location: [address] Received: 05/10/2020 12:35 PM Service Pathologist: Ruiz Retana MD Specimen: Abdominal, peritoneal mass biopsy PART A PERITONEALMASS, BIOSPY:RENAL CELL CARCINOMA.SEE DIAGNOSTIC COMMENT. Signing Pathologist Direct Phone Line: [phone] signed by Ruiz Retana MD on 05/15/2020 at 5:43 AMHistological sections demonstrate a core needle biopsy of tissue involved by partially necrotic tumor. The tumor cells have a clear cell morphology. Immunohistochemical studies performed on block A1 demonstrate the tumor cells to be positive for PAX8 and AMACR, compatible with the reported clinical history of renal cell carcinoma. 14604, 49505, 96663Xhojv is no patient history.Peritoneal massReceived in formalin labeled with the patient's name, medical record number and "abdominal" are two pieces of anthony-white soft tissue that measure 0.6 x 0.4 x 0.2 cm in aggregate. The specimen is submitted in toto followingfiltration in cassette A1. DLR/ew Performed. The interpretation of this case included the use of immu nohistochemistry or special stains.BLOCK A1- PAX8, AMACRControl Slides Examined: In-house known positive controls were evaluated along with the test tissue. These control slides run alongside of the patients sample show appropriate staining. Internal positive and negative controls when available areevaluated Immunohistochemistry technical testing was performed at [facility], Pathology Laboratory where it was developed and its performance characteristics were determined. It has not been cleared or approved by the U.S. Food and Drug Administration. The FDA has determined thatsuch clearance or approval is not necessary. The test is used for clinical purposes. It should not be regarded as investigational or for research. This laboratory is certified under the Clinical Laboratory Improvement Amendments of 1988 (CLIA-88) as qualified to perform high complexity clinical laboratory testing.[facility], Department of Pathology, [address] [place] [address], [facility], Department of [facility]ology, [address] [place] [address], [facility]mqhvK[facility], Department of Pathology, [address] [place] [address], TZ, BIOPSY, [id number] 18:04:00Reason for exam:- >peritoneal mass biopsy, h/o RCCFINAL REPORT CT- guided core biopsy dated 05/10/2020 Name of practitioner performing procedure:Laura Hannah M.D. Names of loan assistant:None Procedure: CT-guided biopsy of omental massPreprocedure diagnosis:History of renal cell carcinoma with masses in the abdomen Postprocedure diagnosis:Omental mass Specimens removed:Omental mass Estimated blood loss:None Complication:None Conscious sedation: 1 mg Versed and [address] Laura Hannah was responsible for the moderate sedation.Total sedation time: 30 minutes Anesthesia: 1% Xylocaine local anesthesia. Graft/Implants:None Technique: This exam was performed according to our departmental dose-optimization program, which includesautomated exposure control, adjustment of the mA and/or kV according to patient size and/or use of interactive reconstruction technique. After obtaining informed consent, CT- guided core biopsy of the omental mass in the right lower quadrant abdomen was performed under usual sterile technique. After placing a 17-gauge coaxial needle adjacent to the mass, core biopsy was performed with an 18-gauge coreneedle with 3 passes. Patient tolerated the procedure well. Impression: Successful CT-guided core biopsy of the right lower quadrant abdominal omental mass. Signed: Laura Hannah MDReport Verified Date/Time: 05/10/2020 18:04:09 Reading Location: [facility] C013Y CT Body Reading Room CT biopsy [id number] 18:04:00Interface, External Ris In - 05/10/2020 6:[address]-guided core biopsy dated 05/10/2020 Name of practitioner performing procedure:Laura Hannah M.D. Names of loan assistant:None Procedure: CT-guided biopsy of omental mass Preprocedure diagnosis:History of renal cell carcinoma with masses in the abdomen Postprocedure diagnosis:Omental mass Specimens removed:Omental mass Estimated blood loss:None Complication:None Conscious sedation: 1 mg Versed and [address] Laura Hannah was responsible for the moderate sedation. Total sedation time: 30 minutes Anesthesia: 1% Xylocaine local anesthesia. Graft/Implants:None Technique: This exam was performed according to our dep artmental dose-optimization program, which includes automated exposure control, adjustment of the mAand/or kV according to patient size and/or use of interactive reconstruction technique. After obtaining informed consent, CT- guided core biopsy of the omental mass in the right lower quadrant abdomen was performed under usual sterile technique. After placing a 17-gauge coaxial needle adjacent to the mass, core biopsy was performed with an 18-gauge core needle with 3 passes. Patient tolerated the procedure well. Impression: Successful CT- guided core biopsy of the right lower quadrant abdominal omental mass. Signed: Laura Hannah MDReport Verified Date/Time: 05/10/2020 18:04:09 Reading Location: [facility] B1 C013Y CT Body [facility]2020-05-10 08:23:00 Test Item Value Reference Range Interpretation Comments SARS-COV2/RT-PCR Negative Not Detected, (test code = Negative, See 58537-1) external report for linked test SARS-COV-2 [facility] PERFORMING LAB (test code = 52051-6) MATT (test code = Negative result for this MATT) test determines that SARS-CoV-2 RNA was not present in the specimen above the Limit of Detection (LOD). However, Negative results do not preclude SARS-CoV-2 infection and should not be used as the sole basis for treatment or patient management decisions. Negative results must be combined with clinical observations, patient history, and epidemiological information. A false negative result may occur if a specimen is improperly collected, transported or handled. A false negative result should be considered if patient's recent exposures or clinical presentation indicate that COVID-19 (SARS-CoV-2) is likely and diagnostic tests for other causes of illness are negative. Re-testing should be considered in cases of suspected false negatives. The limit of detection for this assay is 800 copies/mL. This SARS CoV-2 test is a real-time RT-PCR test intended for the qualitative detection of nucleic acid from SARS-CoV-2 in a nasopharyngeal swab specimen collected from individuals suspected of COVID-19 by their healthcare provider. This test has not been Food and Drug Administration (FDA) cleared or approved. This is a modified version of an approved Emergency Use Authorization (EUA) and is in the process of review by the FDA. Once authorized by the FDA, the issued EUA will be effective until the declaration that circumstances exist justifying the authorization of the emergency use of in vitro diagnostic tests for detection and/or diagnosis of COVID-19 is terminated under Section 564(b)(2) of the Act or the EUA is revoked under Section 564(g) of the Act. Fact Sheet for Healthcare Providers:https://www.qu [employer]el.com/sites/default/f alber/product/documents/F act_Sheet_HC_Providers_L baz_THWM-TnX-4.pdf Fact Sheet for Healthcare Patients:https://www.[employer]/sites/default/fi les/product/documents/Fa ct_Sheet_Patients_Lyra_S ARS-CoV-2.pdf Performing Laboratory:[facility] [place] [address] [facility] ([facility])2020-05-10 08:23:00 Test Item Value Reference Range Interpretation Comments SARS-COV2/RT-PCR (test Negative Not Detected, Negative, code = 2951345) See external report for linked test SARS-COV-2 PERFORMING LAB [facility] (test code = 7626581) Negative result for this test determines that SARS-CoV-2 RNA was not present in the specimen above the Limit of Detection (LOD). However, Negative results do not preclude SARS-CoV-2 infection and should not be used as the sole basis for treatment or patient management decisions. Negative results mustbe combined with clinical observations, patient history, and epidemiological information. A false negative result may occur if a specimen is improperly collected, transported or handled. A false negative result should be considered if patient's recent exposures or clinical presentation indicate that COVID-19 (SARS-CoV-2) is likely and diagnostic tests for other causes of illness are negative. Re-testing should be considered in cases of suspected false negatives.The limit of detection for this assay is 800 copies/mL.This SARS CoV-2 test is a real-time RT-PCR test intended for the qualitative detection of nucleic acid from SARS-CoV-2 in a nasopharyngeal swab specimen collected from individuals susp ected of COVID-19 by their healthcare provider.This test has not been Food and Drug Administration (FDA) cleared or approved. This is a modified version of an approved Emergency Use Authorization (EUA) and is in the process of review by the FDA. Once authorized by the FDA, the issued EUA will be effective until the declaration that circumstances exist justifying the authorization of the emergency use of in vitro diagnostic tests for detection and/or diagnosis of COVID-19 is terminated under Section 564(b)(2) of the Act or the EUA is revoked under Section 564(g) of the Act.Fact Sheet for Healthcare Providers:https://www.[employer]/sites/default/files/product/documents/Fact_Haim bejaranoy_NG_Nreavralx_Euan_QDTD-LpR-0.pdfFact Sheet for Healthcare Patients:https://www.[employer]/sites/default/files/product/ documents/Riug_Utmmo_Wupkhbne_Gsdi_QLNM-EhM-7.pdfPerforming Laboratory:[facility], [place] [address]Crhmalqqznt time/INR 2020-05-10 04:37:00 Test Item Value Reference Interpretation Comments Range Protime (test code = 16.0 See_Comment H [Autom ated 5902-2) message] The system which generated this result transmitted reference range : 11.9 - 14.2 seconds. The reference range was not used to interpret this result as normal/abnormal . INR (test code = 1.32 See_Comment [Automated 6301-6) message] The system which generated this result transmitted reference range : <=5.90. The reference range was not used to interpret this result as normal/abnormal . MATT (test code = Effective 12/29/2018: MATT) PT Reference Range ChangeNew: 11.9-14.2 Previous: 11.7-14.7 RECOMMENDED COUMADIN/WARFARIN INR THERAPY RANGESSTANDARD DOSE: 2.0-3.0 Includes: PROPHYLAXIS for venous thrombosis, systemic embolization; TREATMENT for venous thrombosis and/or pulmonary embolus.HIGH RISK: Target INR is 2.5-3.5 for patients wiht mechanical heart valves. Lab Interpretation Abnormal (test code = 58067-9) [facility] HospitalPROTHROMBIN [facility]/[id number] 04:37:00 Test Item Value Reference Range Interpretation Comments PROTIME (BEAKER) (test code = 16.0 seconds 11.9-14.2 H 759) INR (BEAKER) (test code = 370) 1.32 <=5.90 Effective 12/29/2018: PT Reference Range ChangeNew: 11.9-14.2 Previous: 11.7- 14.7RECOMMENDED COUMADIN/WARFARIN INR THERAPY RANGESSTANDARD DOSE: 2.0-3.0 Includes: PROPHYLAXIS for venous thrombosis, systemic embolization; TREATMENT for venous thrombosis and/or pulmonary embolus.HIGH RISK: Target INR is2.5-3.5 for patients wiht mechanical heart valves.CBC (Hemogram only)2020-05-10 04:24:00 Test Item Value Reference Range Interpretation Comments WBC (test code = 6690-2) 4.9 See_Comment [A utomated message] The system [employer] generated this result transmitted ref erence range: 3.5 - 10 .5 K/L. The refe rence range was not u sed to interpret this result as normal/abnor mal. RBC (test code = 789-8) 3.49 See_Comment L [Au tomated message] The system [employer] generated this result transmitted ref erence range: 4.63 - 6 .08 M/L. The refe rence range was not u sed to interpret this result as normal/abnor mal. MCHC (test code = 786-4) 32.2 See_Comment L [A utomated message] The system [employer] generated this result transmitted ref erence range: 32.3 - 3 6.5 GM/DL. The refe rence range was not u sed to interpret this result as normal/abnor mal. Hematocrit (test code = 31.1 % 40.1-51 L 4544-3) MCV (test code = 787-2) 89.1 fL 79-92.2 MCH (test code = 785-6) 28.7 pg 25.7-32.2 RDW (test code = 788-0) 14.3 % 11.6-14.4 Platelets (test code = 128 See_Comment L [Aut omated message] 777-3) The system [employer] generated this result transmitted ref erence range: 150 - 45 0 K/CU MM. The referen ce range was not u sed to interpret this result as normal/abnor mal. MPV (test code = 10.8 fL 9.4-12.4 88001-5) nRBC (test code = 413) 0 See_Comment [Aut omated message] The system [employer] generated this result transmitted ref erence range: 0 - 0 /1 00 WBC. The refere nce range was not u sed to interpret this result as normal/abnor mal. Lab Interpretation (test Abnormal code = 85979-9) [facility] (HEMOGRAM ONLY)2020-05-10 04:24:00 Test Item Value Reference Range Interpretation Comments WHITE BLOOD CELL COUNT (BEAKER) 4.9 K/ L 3.5-10.5 (test code = 775) RED BLOOD CELL COUNT (BEAKER) 3.49 M/ L 4.63-6.08 L (test code = 761) HEMOGLOBIN (BEAKER) (test code = 10.0 GM/DL 13.7-17.5 L 410) HEMATOCRIT (BEAKER) (test code = 31.1 % 40.1-51.0 L 411) MEAN CORPUSCULAR VOLUME (BEAKER) 89.1 fL 79.0-92.2 (test code = 753) MEAN CORPUSCULAR HEMOGLOBIN 28.7 pg 25.7-32.2 (BEAKER) (test code = 751) MEAN CORPUSCULAR HEMOGLOBIN CONC 32.2 GM/DL 32.3-36.5 L (BEAKER) (test code = 752) RED CELL DISTRIBUTION WIDTH 14.3 % 11.6-14.4 (BEAKER) (test code = 412) PLATELET COUNT (BEAKER) (test 128 K/CU MM 150-450 L code = 756) MEAN PLATELET VOLUME (BEAKER) 10.8 fL 9.4-12.4 (test code = 754) NUCLEATED RED BLOOD CELLS 0 /100 WBC 0-0 (BEAKER) (test code = 413) POC-Glucose [id number] 23:22:00 Test Item Value Reference Range Interpretation Comments POC-Glucose Meter (test 173 mg/dL 70-110 H : TE STED AT [facility] code = 1538) [address] [place], [address]: Side Door Man/Techni vipin ID = [id number] for ADEEL GUEVARA TTE Lab Interpretation (test Abnormal code = 19605-7) [facility] HospitalPOCT-GLUCOSE [id number] 23:22:00 Test Item Value Reference Range Interpretation Comments POC-GLUCOSE METER 173 mg/dL 70-110 H : TESTED A T [facility] 6720 (BEAKER) (test code = [facility], 1538) [address]: Side Door Man/Techni vipin ID = [id number] for ADEEL GUEVARA TTE [id number] 10:54:00 Test Item Value Reference Range Interpretation Comments PTT (test code = 58556-0) 34.9 See_Comment [ Automated message] The system [employer] generated this result transmitted ref erence range: 22.5 - 3 6.0 seconds. The re ference range was not u sed to interpret this result as normal/abnor mal. Lab Interpretation (test Normal code = 32764-6) [facility] HospitalAPTT2020-[facility]-07 10:54:00 Test Item Value Reference Range Interpretation Comments PARTIAL THROMBOPLASTIN TIME 34.9 seconds 22.5-36.0 (BEAKER) (test code = 760) PROTHROMBIN [id number] 10:53:00 Test Item Value Reference Range Interpretation Comments PROTIME (BEAKER) (test code = 15.7 seconds 11.9-14.2 H 759) INR (BEAKER) (test code = 370) 1.29 <=5.90 Effective 12/29/2018: PT Reference Range ChangeNew: 11.9-14.2 Previous: 11.7- 14.7RECOMMENDED COUMADIN/WARFARIN INR THERAPY RANGESSTANDARD DOSE: 2.0-3.0 Includes: PROPHYLAXIS for venous thrombosis, systemic embolization; TREATMENT for venous thrombosis and/or pulmonary embolus.HIGH RISK: Target INR is2.5-3.5 for patients wiht mechanical heart valves.CBC with platelet count + automated [id number] 10:45:00 Test Item Value Reference Range Interpretation Comments WBC (test code = 6690-2) 6.0 See_Comment [A utomated message] The system [employer] generated this result transmitted ref erence range: 3.5 - 10 .5 K/L. The refe rence range was not u sed to interpret this result as normal/abnor mal. RBC (test code = 789-8) 4.08 See_Comment L [Au tomated message] The system [employer] generated this result transmitted ref erence range: 4.63 - 6 .08 M/L. The refe rence range was not u sed to interpret this result as normal/abnor mal. MCHC (test code = 786-4) 32.4 See_Comment L [A utomated message] The system [employer] generated this result transmitted ref erence range: 32.3 - 3 6.5 GM/DL. The refe rence range was not u sed to interpret this result as normal/abnor mal. Hematocrit (test code = 36.7 % 40.1-51 L 4544-3) MCV (test code = 787-2) 90.0 fL 79-92.2 MCH (test code = 785-6) 29.2 pg 25.7-32.2 RDW (test code = 788-0) 14.5 % 11.6-14.4 H Platelets (test code = 154 See_Comment [Aut omated message] 777-3) The system [employer] generated this result transmitted ref erence range: 150 - 45 0 K/CU MM. The referen ce range was not u sed to interpret this result as normal/abnor mal. MPV (test code = 10.8 fL 9.4-12.4 22656-4) nRBC (test code = 413) 0 See_Comment [Aut omated message] The system [employer] generated this result transmitted ref erence range: 0 - 0 /1 00 WBC. The refere nce range was not u sed to interpret this result as normal/abnor mal. % Neutros (test code = 63 % 429) % Lymphs (test code = 21 % 430) % Monos (test code = 11 % 431) % Eos (test code = 432) 3 % % Baso (test code = 437) 1 % # Neutros (test code = 3.80 See_Comment [Aut omated message] 670) The system [employer] generated this result transmitted ref erence range: 1.78 - 5 .38 K/L. The refe rence range was not u sed to interpret this result as normal/abnor mal. # Lymphs (test code = 1.29 See_Comment L [Auto mated message] 414) The system [employer] generated this result transmitted ref erence range: 1.32 - 3 .57 K/L. The refe rence range was not u sed to interpret this result as normal/abnor mal. # Monos (test code = 0.69 See_Comment [Autom ated message] 415) The system [employer] generated this result transmitted ref erence range: 0.30 - 0 .82 K/L. The refe rence range was not u sed to interpret this result as normal/abnor mal. # Eos (test code = 416) 0.20 See_Comment [Au tomated message] The system [employer] generated this result transmitted ref erence range: 0.04 - 0 .54 K/L. The refe rence range was not u sed to interpret this result as normal/abnor mal. # Baso (test code = 417) 0.04 See_Comment [A utomated message] The system [employer] generated this result transmitted ref erence range: 0.01 - 0 .08 K/L. The refe rence range was not u sed to interpret this result as normal/abnor mal. Immature 0 % 0-1 Granulocytes-Relative (test code = 2801) Lab Interpretation (test Abnormal code = 23515-8) [facility] W/PLT COUNT & AUTO [id number] 10:45:00 Test Item Value Reference Range Interpretation Comments WHITE BLOOD CELL COUNT (BEAKER) 6.0 K/ L 3.5-10.5 (test code = 775) RED BLOOD CELL COUNT (BEAKER) 4.08 M/ L 4.63-6.08 L (test code = 761) HEMOGLOBIN (BEAKER) (test code = 11.9 GM/DL 13.7-17.5 L 410) HEMATOCRIT (BEAKER) (test code = 36.7 % 40.1-51.0 L 411) MEAN CORPUSCULAR VOLUME (BEAKER) 90.0 fL 79.0-92.2 (test code = 753) MEAN CORPUSCULAR HEMOGLOBIN 29.2 pg 25.7-32.2 (BEAKER) (test code = 751) MEAN CORPUSCULAR HEMOGLOBIN CONC 32.4 GM/DL 32.3-36.5 (BEAKER) (test code = 752) RED CELL DISTRIBUTION WIDTH 14.5 % 11.6-14.4 H (BEAKER) (test code = 412) PLATELET COUNT (BEAKER) (test 154 K/CU MM 150-450 code = 756) MEAN PLATELET VOLUME (BEAKER) 10.8 fL 9.4-12.4 (test code = 754) NUCLEATED RED BLOOD CELLS 0 /100 WBC 0-0 (BEAKER) (test code = 413) NEUTROPHILS RELATIVE PERCENT 63 % (BEAKER) (test code = 429) LYMPHOCYTES RELATIVE PERCENT 21 % (BEAKER) (test code = 430) MONOCYTES RELATIVE PERCENT 11 % (BEAKER) (test code = 431) EOSINOPHILS RELATIVE PERCENT 3 % (BEAKER) (test code = 432) BASOPHILS RELATIVE PERCENT 1 % (BEAKER) (test code = 437) NEUTROPHILS ABSOLUTE COUNT 3.80 K/ L 1.78-5.38 (BEAKER) (test code = 670) LYMPHOCYTES ABSOLUTE COUNT 1.29 K/ L 1.32-3.57 L (BEAKER) (test code = 414) MONOCYTES ABSOLUTE COUNT (BEAKER) 0.69 K/ L 0.30-0.82 (test code = 415) EOSINOPHILS ABSOLUTE COUNT 0.20 K/ L 0.04-0.54 (BEAKER) (test code = 416) BASOPHILS ABSOLUTE COUNT (BEAKER) 0.04 K/ L 0.01-0.08 (test code = 417) IMMATURE GRANULOCYTES-RELATIVE 0 % 0-1 PERCENT (BEAKER) (test code = 2801) PROTHROMBIN [id number] 10:37:00 Test Item Value Reference Range Interpretation Comments PROTIME (BEAKER) (test code = 15.1 seconds 11.9-14.2 H 759) INR (BEAKER) (test code = 370) 1.22 <=5.90 Effective 12/29/2018: PT Reference Range ChangeNew: 11.9-14.2 Previous: 11.7- 14.7RECOMMENDED COUMADIN/WARFARIN INR THERAPY RANGESSTANDARD DOSE: 2.0-3.0 Includes: PROPHYLAXIS for venous thrombosis, systemic embolization; TREATMENT for venous thrombosis and/or pulmonary embolus.HIGH RISK: Target INR is2.5-3.5 for patients wiht mechanical heart valves.[id number] 10:37:00 Test Item Value Reference Range Interpretation Comments PARTIAL THROMBOPLASTIN TIME 32.0 seconds 22.5-36.0 (BEAKER) (test code = 760) CBC W/PLT COUNT & AUTO [id number] 10:24:00 Test Item Value Reference Range Interpretation Comments WHITE BLOOD CELL COUNT (BEAKER) 5.3 K/ L 3.5-10.5 (test code = 775) RED BLOOD CELL COUNT (BEAKER) 3.90 M/ L 4.63-6.08 L (test code = 761) HEMOGLOBIN (BEAKER) (test code = 11.0 GM/DL 13.7-17.5 L 410) HEMATOCRIT (BEAKER) (test code = 34.7 % 40.1-51.0 L 411) MEAN CORPUSCULAR VOLUME (BEAKER) 89.0 fL 79.0-92.2 (test code = 753) MEAN CORPUSCULAR HEMOGLOBIN 28.2 pg 25.7-32.2 (BEAKER) (test code = 751) MEAN CORPUSCULAR HEMOGLOBIN CONC 31.7 GM/DL 32.3-36.5 L (BEAKER) (test code = 752) RED CELL DISTRIBUTION WIDTH 13.4 % 11.6-14.4 (BEAKER) (test code = 412) PLATELET COUNT (BEAKER) (test 169 K/CU MM 150-450 code = 756) MEAN PLATELET VOLUME (BEAKER) 10.6 fL 9.4-12.4 (test code = 754) NUCLEATED RED BLOOD CELLS 0 /100 WBC 0-0 (BEAKER) (test code = 413) NEUTROPHILS RELATIVE PERCENT 61 % (BEAKER) (test code = 429) LYMPHOCYTES RELATIVE PERCENT 24 % (BEAKER) (test code = 430) MONOCYTES RELATIVE PERCENT 11 % (BEAKER) (test code = 431) EOSINOPHILS RELATIVE PERCENT 4 % (BEAKER) (test code = 432) BASOPHILS RELATIVE PERCENT 1 % (BEAKER) (test code = 437) NEUTROPHILS ABSOLUTE COUNT 3.23 K/ L 1.78-5.38 (BEAKER) (test code = 670) LYMPHOCYTES ABSOLUTE COUNT 1.25 K/ L 1.32-3.57 L (BEAKER) (test code = 414) MONOCYTES ABSOLUTE COUNT (BEAKER) 0.59 K/ L 0.30-0.82 (test code = 415) EOSINOPHILS ABSOLUTE COUNT 0.21 K/ L 0.04-0.54 (BEAKER) (test code = 416) BASOPHILS ABSOLUTE COUNT (BEAKER) 0.03 K/ L 0.01-0.08 (test code = 417) IMMATURE GRANULOCYTES-RELATIVE 0 % 0-1 PERCENT (BEAKER) (test code = 2801) PROTHROMBIN [id number] 11:43:00 Test Item Value Reference Range Interpretation Comments PROTIME (BEAKER) (test code = 14.5 seconds 11.9-14.2 H 759) INR (BEAKER) (test code = 370) 1.16 <=5.90 Effective 12/29/2018: PT Reference Range ChangeNew: 11.9-14.2 Previous: 11.7- 14.7RECOMMENDED COUMADIN/WARFARIN INR THERAPY RANGESSTANDARD DOSE: 2.0-3.0 Includes: PROPHYLAXIS for venous thrombosis, systemic embolization; TREATMENT for venous thrombosis and/or pulmonary embolus.HIGH RISK: Target INR is2.5-3.5 for patients wiht mechanical heart valves.[id number] 11:43:00 Test Item Value Reference Range Interpretation Comments PARTIAL THROMBOPLASTIN TIME 23.3 seconds 22.5-36.0 (BEAKER) (test code = 760) CBC W/PLT COUNT & AUTO [id number] 11:34:00 Test Item Value Reference Range Interpretation Comments WHITE BLOOD CELL COUNT (BEAKER) 5.8 K/ L 3.5-10.5 (test code = 775) RED BLOOD CELL COUNT (BEAKER) 4.04 M/ L 4.63-6.08 L (test code = 761) HEMOGLOBIN (BEAKER) (test code = 11.2 GM/DL 13.7-17.5 L 410) HEMATOCRIT (BEAKER) (test code = 36.3 % 40.1-51.0 L 411) MEAN CORPUSCULAR VOLUME (BEAKER) 89.9 fL 79.0-92.2 (test code = 753) MEAN CORPUSCULAR HEMOGLOBIN 27.7 pg 25.7-32.2 (BEAKER) (test code = 751) MEAN CORPUSCULAR HEMOGLOBIN CONC 30.9 GM/DL 32.3-36.5 L (BEAKER) (test code = 752) RED CELL DISTRIBUTION WIDTH 13.2 % 11.6-14.4 (BEAKER) (test code = 412) PLATELET COUNT (BEAKER) (test 211 K/CU MM 150-450 code = 756) MEAN PLATELET VOLUME (BEAKER) 10.9 fL 9.4-12.4 (test code = 754) NUCLEATED RED BLOOD CELLS 0 /100 WBC 0-0 (BEAKER) (test code = 413) NEUTROPHILS RELATIVE PERCENT 61 % (BEAKER) (test code = 429) LYMPHOCYTES RELATIVE PERCENT 24 % (BEAKER) (test code = 430) MONOCYTES RELATIVE PERCENT 8 % (BEAKER) (test code = 431) EOSINOPHILS RELATIVE PERCENT 6 % (BEAKER) (test code = 432) BASOPHILS RELATIVE PERCENT 1 % (BEAKER) (test code = 437) NEUTROPHILS ABSOLUTE COUNT 3.54 K/ L 1.78-5.38 (BEAKER) (test code = 670) LYMPHOCYTES ABSOLUTE COUNT 1.39 K/ L 1.32-3.57 (BEAKER) (test code = 414) MONOCYTES ABSOLUTE COUNT (BEAKER) 0.48 K/ L 0.30-0.82 (test code = 415) EOSINOPHILS ABSOLUTE COUNT 0.34 K/ L 0.04-0.54 (BEAKER) (test code = 416) BASOPHILS ABSOLUTE COUNT (BEAKER) 0.03 K/ L 0.01-0.08 (test code = 417) IMMATURE GRANULOCYTES-RELATIVE 0 % 0-1 PERCENT (BEAKER) (test code = 2801) CT, CHEST, WITH IV [id number] 14:00:00FINAL REPORT TECHNIQUE: CT of the chest, abdomen, and pelvis WITH intravenous contrast and WITHOUT oral contrast. Dose modulation, iterative reconstruction, and/or weight-based adjustment of the mA/kV was utilized to reduce the radiation dose to as low as reasonably achievable. INDICATION: Cancer of right kidney. COMPARISON: 08/01/2019. FINDINGS: LINES/TUBES: None. LUNGS AND AIRWAYS: Central airways are patent. Linear densities in the left lower lobe and lingula likely representing atelectasis or scarring. Redemonstration a few tiny probably subpleural nodules in the bilateral lungs, not significantly changed. No new or enlarging pulmonary nodules..PLEURA: The pleural spaces are clear.HEART AND MEDIASTINUM: The visualized thyroid gland is normal. No significant mediastinal, hilar, or axillary lymphadenopathy. The heart is enlarged. There is a trace pericardial effusion. Atherosclerotic calcifications or stents in the coronary arteries. Thoracic aorta is normal in caliberwith mild atherosclerotic opacification. HEPATOBILIARY: There is an irregular enhancing focus withinthe periphery of segment six and seven measuring 4.1 x 2 cm. (Axial image 49). In addition there arefew enhancing nodular densities in the inferior tip of segment six measuring 1.6 x 2.5 cm.. There avery stable 7 mm and six focus within segment two likely representing hemangioma. Gallbladder is unremarkable. No biliary ductal dilatation.SPLEEN: No splenomegaly.PANCREAS: No focal masses or ductal dilatation. ADRENALS: No adrenal nodules.KIDNEYS/URETERS: Postsurgical changes from partial nephrectomy with interval enlargement of enhancing mass in the lower pole of the right kidney measuring 3.5 x 3.1 cm. There is direct extension of the mass into the right renal vein and IVC. The length of the tumor thrombus in the IVC measures 3.6 cm in cranial caudal dimension..PELVIC ORGANS/BLADDER: Unremarkable.PERITONEUM/RETROPERITONEUM: There are numerous intraperitoneal and retroperitoneal soft tissue masses in the right hemiabdomen which are all increased in size. For instance a nodule adjacent to the ascending colon measures 2.2 x 2 cm. (Axial image 66). There are numerous enhancing nodules along the anterior posterior pararenal fascia. There is also a 1.4 cm nodule in the pelvis adjacent to the rectum.LYMPH NODES: No lymphadenopathy.VESSELS: Unremarkable. GI TRACT: No distention or wall thickening. BONES AND SOFT TISSUES: Advanced degenerative changes are noted in the left shoulder.. Degenerative changes are noted in spine. No suspicious osseous lesion. IMPRESSION:Status post right lower pole partial nephrectomy with recurrent malignancy in the lower pole with tumor thrombus in the right renal vein and inferior vena cava. Continued increase in size of numerous retroperitoneal and peritoneal nodules consistent with metastatic implants. Enhancing lesion in the region of segment /VII of the liver which may represent intrahepatic metastasis versus tumor implant on the surface. Stable bilateral subcentimeter nodules. Signed: Yaniv Landers MDReport Verified Date/Time: 02/15/2020 14:00:05 Reading Location: [address] Consult Reading Room CT, [id number] 14:00:00FINAL REPORT TECHNIQUE: CT of the chest, abdomen, and pelvis WITH intravenouscontrast and WITHOUT oral contrast. Dose modulation, iterative reconstruction, and/or weight-based ad justment of the mA/kV was utilized to reduce the radiation dose to as low as reasonably achievable. INDICATION: Cancer of right kidney. COMPARISON: 08/01/2019. FINDINGS: LINES/TUBES: None. LUNGS AND AIRWAYS: Central airways are patent. Linear densities in the left lower lobe and lingula likely representing atelectasis or scarring. Redemonstration a few tiny probably subpleural nodules in the bilateral lungs, not significantly changed. No new or enlarging pulmonary nodules..PLEURA: The pleural spaces are clear.HEART AND MEDIASTINUM: The visualized thyroid gland is normal. No significant mediastinal, hilar, or axillary lymphadenopathy. The heart is enlarged. There is a trace pericardial effusion. Atherosclerotic calcifications or stents in the coronary arteries. Thoracic aorta is normal in caliberwith mild atherosclerotic opacification. HEPATOBILIARY: There is an irregular enhancing focus withinthe periphery of segment six and seven measuring 4.1 x 2 cm. (Axial image 49). In addition there arefew enhancing nodular densities in the inferior tip of segment six measuring 1.6 x 2.5 cm.. There avery stable 7 mm and six focus within segment two likely representing hemangioma. Gallbladder is unremarkable. No biliary ductal dilatation.SPLEEN: No splenomegaly.PANCREAS: No focal masses or ductal dilat ation. ADRENALS: No adrenal nodules.KIDNEYS/URETERS: Postsurgical changes from partial nephrectomy with interval enlargement of enhancing mass in the lower pole of the right kidney measuring 3.5 x 3.1 cm. There is direct extension of the mass into the right renal vein and IVC. The length of the tumor thrombus in the IVC measures 3.6 cm in cranial caudal dimension..PELVIC ORGANS/BLADDER: Unremarkable.PERITONEUM/RETROPERITONEUM: There are numerous intraperitoneal and retroperitoneal soft tissue masses in the right hemiabdomen which are all increased in size. For instance a nodule adjacent to the ascending colon measures 2.2 x 2 cm. (Axial image 66). There are numerous enhancing nodules along the anterior posterior pararenal fascia. There is also a 1.4 cm nodule in the pelvis adjacent to the rectum.LYMPH NODES: No lymphadenopathy.VESSELS: Unremarkable. GI TRACT: No distention or wall thickening. BONES AND SOFT TISSUES: Advanced degenerative changes are noted in the left shoulder.. Degenerative changes are noted in spine. No suspicious osseous lesion. IMPRESSION:Status post right lower pole partial nephrectomy with recurrent malignancy in the lower pole with tumor thrombus in the right renal vein and inferior vena cava. Continued increase in size of numerous retroperitoneal and peritoneal nodules consistent with metastatic implants. Enhancing lesion in the region of segment /VII of the liver which may represent intrahepatic metastasis versus tumor implant on the surface. Stable bilateral subcentimeter nodules. Signed: Yaniv Landers MDReport Verified Date/Time: 02/15/2020 14:00:05 Reading Location: [address] Ortho Consult Reading Room -[id number] 14:53:00 Test Item Value Reference Range Interpretation Comments POC-CREATININE 0.8 mg/dL 0.6-1.3 TESTED AT [facility] 7200 ([facility]) (test GAVIN BLD G A code = 1859) [facility] 7703 0 POC-EGFR 121 mL/min/1.73M2 ([facility]) (test code = 1860) CT, CHEST, WITH IV [id number] 10:23:00FINAL REPORT CT scan of the chest, abdomen and pelvis. MEDICAL HISTORY: Cancer of right kidney COMPARISON STUDY: May 03, 2019. TECHNIQUE: Contiguous helical slices were acquired through the chest, abdomen and pelvis post administration of intravenous contrast. No oral contrast was administered. This exam was performed according to our department dose optimization program which includes automated exposure control, adjustment of the mA and/or kV according to the patient's size and/or use of iterative reconstruction technique. FINDINGS: The mediastinum demonstrates atherosclerosis but no suspicious masses or adenopathy. There are no pleural effusions. The tracheobronchial tree is clear with no endobronchial lesions. The pulmonary parenchyma demonstrates a 1 mm subpleural nodule in the right upper lobe on image 27. There is a 2 mm nodule in the right upper lobe on image 27.A 2 mm subpleural nodule is seen in the right upper lobe on image 40 with that previously measured 1.3 cm. A stable 1.1 cm opacity seen in the subpleural region of the lingula, nodule versus area of fibrosis. A tiny granuloma is seen in the right lower lobe on image 63. There is a 2 mm subpleural nodule in the right middle lobe on image 70. Atelectatic changes are seen. All nodules are stable with the exception of a nodule that has decreased in size. The liver, spleen, pancreas, and adrenal glands are unremarkable. The left kidney is within normal limits. The gallbladder and biliary tree are unremarkable. Postsurgical changes are seen in the right kidney related to partial nephrectomy. There are multiple enhancing nodules adjacent to the kidney including an 8 mm nodule near the upper pole, 1.1 cmnodule near the midpole, 9 mm nodule within the perinephric fat, 1.1 cm nodule within the perinephric fat adjacent to the lower pole, 1.0 cm nodule adjacent to the right iliacus muscle, 8 mm nodule adjacent to the psoas muscle, two nodules measuring 1.5 x 1.4 cm and 1.3 cm along the inferior aspect ofthe perinephric fascia and multiple other nodules suspicious for metastatic disease. A 1.3 x 1.2 cm nodule is also seen in the right lateroconal fascia posterior to the descending colon. No dilated loops of bowel are seen suggest obstruction. There is no free fluid or free air. The aorta is normal in caliber. Atherosclerosis is seen. The prostate gland remains mildly enlarged in nature. Bone windows demonstrate degenerative changes. A stable 1.1 cm lytic focus is seen in the left iliac bone. IMPRESSION:1. Multiple pulmonary nodules, knee majority unchanged. One subpleural nodule has decreased in size may represent atelectasis or fibrosis.2. Status post partial right nephrectomy with multiple new enhancing soft tissue nodules suspicious for recurrent disease.3. No other significant change. Signed:Eleno Hutton MDReport Verified Date/Time: 08/01/2019 10:23:19 Reading Location: [facility] C013Y CT Body Reading Room [facility], [id number] 10:23:00FINAL REPORT CT scan of the chest, abdomen and pelvis. MEDICAL HISTORY: Cancer of right kidney COMPARISON STUDY: May 03, 2019. TECHNIQUE: Contiguous helical slices were acquired through the chest, abdomen and pelvis post administration of intravenous contrast. No oral contrast was administered. This exam was performed according to our department dose optimization program which includes automated exposure control, adjustment of the mA and/or kV according to the patient's size and/or use of iterative reconstruction technique. FINDINGS: The mediastinum demonstrates atherosclerosis but no suspicious masses or adenopathy. There are no pleural effusions. The tracheobronchial tree is clear with no endobronchial lesions. The pulmonary parenchyma demonstrates a 1 mm subpleural nodule in the right upper lobe on image 27. There is a 2 mm nodule in the right upper lobe on image 27.A 2 mm subpleural nodule is seen in the right upper lobe on image 40 with that previously measured 1.3 cm. A stable 1.1 cm opacity seen in the subpleural region of the lingula, nodule versus area of fibrosis. A tiny granuloma is seen in the right lower lobe on image 63. There is a 2 mm subpleural nodule in the right middle lobe on image 70. Atelectatic changes are seen. All nodules are stable with the exception of a nodule that has decreased in size. The liver, spleen, pancreas, and adrenal glands are unremarkable. The left kidney is within normal limits. The gallbladder and biliary tree are unremarkable. Postsurgical changes are seen in the right kidney related to partial nephrectomy. There are multiple enhancing nodules adjacent to the kidney including an 8 mm nodule near the upper pole, 1.1 cmnodule near the midpole, 9 mm nodule within the perinephric fat, 1.1 cm nodule within the perinephric fat adjacent to the lower pole, 1.0 cm nodule adjacent to the right iliacus muscle, 8 mm nodule adjacent to the psoas muscle, two nodules measuring 1.5 x 1.4 cm and 1.3 cm along the inferior aspect ofthe perinephric fascia and multiple other nodules suspicious for metastatic disease. A 1.3 x 1.2 cm nodule is also seen in the right lateroconal fascia posterior to the descending colon. No dilated loops of bowel are seen suggest obstruction. There is no free fluid or free air. The aorta is normal in caliber. Atherosclerosis is seen. The prostate gland remains mildly enlarged in nature. Bone windows demonstrate degenerative changes. A stable 1.1 cm lytic focus is seen in the left iliac bone. IMPRESSION:1. Multiple pulmonary nodules, knee majority unchanged. One subpleural nodule has decreased in size may represent atelectasis or fibrosis.2. Status post partial right nephrectomy with multiple new enhancing soft tissue nodules suspicious for recurrent disease.3. No other significant change. Signed:Eleno Hutton MDReport Verified Date/Time: 08/01/2019 10:23:19 Reading Location: [facility] C013Y CT Body Reading Room [facility], [id number] 12:48:00Reason for Exam:->cancer of right kidneyFINAL REPORT CT of the chest, abdomen and pelvis, with contrast Clinical History: cancer of right kidneycancer of right kidney Technique: CT of the chest, abdomen and pelvis isperformed with intravenous contrast administration. This exam was performed according to our departmental dose optimization program which includes automated exposure control, adjustment of the mA and/or kV according to patient's size and/or use of iterative reconstructive technique. Comparison Film:December 23, 2018 and July 12, 2018 Discussion: Visualized thyroid gland is normal. There is no suprac lavicular, axillary, mediastinal or hilar lymphadenopathy. Heart and pericardium are unremarkable. There are a few pulmonary nodules, without interval change. The largest is a subpleural 5 mm nodule inthe right upper lobe. No new mass or consolidation, no pleural effusion. Central airways are patent,no significant bronchiectasis, or bronchial wall thickening. Grossly stable subcentimeter hypervascular focus at the dome of the left hepatic lobe is probably a hemangioma. No new liver mass. There is no biliary ductal dilatation, gallbladder is unremarkable. No liver mass is identified. No biliary ductal dilatation, gallbladder is unremarkable. The spleen, pancreas, and adrenal glands are also unremarkable. Again seen is postsurgical change at the lower pole of the right kidney. No recurrent mass or abnormal fluid collection is identified. Kidneys demonstrate no radiopaque stone or hydronephrosis.Stable tiny hypodensity at the left upper pole is likely a cyst. No evidence of bowel obstruction, or abnormal bowel wall thickening. Normal appendix. In the pelvis, bladder is unremarkable. Prostate gland is enlarged. No ascites, free air or lymphadenopathy. Osseous structures demonstrate degenerative changes. Stable lucency at the left iliac crest. Impression: Status post partial right nephrectomy.No recurrent mass. Stable small pulmonary nodules, amenable to continued surveillance. Indeterminatelucency at the left iliac crest, also amenable to follow-up. Enlarged prostate gland. Signed: Lizzette Smith MDReport Verified Date/Time: 05/03/2019 12:48:10 Reading Location: [facility] B1 C013X Ortho Consult Reading Room CT, CHEST, WITH IV [id number] 12:48:00Restaging RCCReason for Exam:->cancer of right kidneyFINAL REPORT CT of the chest, abdomen and pelvis, with contrast Clinical History: cancer of right kidneycancer of right kidney Technique: CT of the chest, abdomen and pelvis isperformed with intravenous contrast administration. This exam was performed according to our departmental dose optimization program which includes automated exposure control, adjustment of the mA and/or kV according to patient's size and/or use of iterative reconstructive technique. Comparison Film:December 23, 2018 and July 12, 2018 Discussion: Visualized thyroid gland is normal. There is no supraclavicular, axillary, mediastinal or hilar lymphadenopathy. Heart and pericardium are unremarkable. There are a few pulmonary nodules, without interval change. The largest is a subpleural 5 mm nodule inthe right upper lobe. No new mass or consolidation, no pleural effusion. Central airways are patent,no significant bronchiectasis, or bronchial wall thickening. Grossly stable subcentimeter hypervascular focus at the dome of the left hepatic lobe is probably a hemangioma. No new liver mass. There is no biliary ductal dilatation, gallbladder is unremarkable. No liver mass is identified. No biliary ductal dilatation, gallbladder is unremarkable. The spleen, pancreas, and adrenal glands are also unremarkable. Again seen is postsurgical change at the lower pole of the right kidney. No recurrent mass or abnormal fluid collection is identified. Kidneys demonstrate no radiopaque stone or hydronephrosis.Stable tiny hypodensity at the left upper pole is likely a cyst. No evidence of bowel obstruction, or abnormal bowel wall thickening. Normal appendix. In the pelvis, bladder is unremarkable. Prostate gland is enlarged. No ascites, free air or lymphadenopathy. Osseous structures demonstrate degenerative changes. Stable lucency at the left iliac crest. Impression: Status post partial right nephrectomy.No recurrent mass. Stable small pulmonary nodules, amenable to continued surveillance. Indeterminate lucency at the left iliac crest, also amenable to follow-up. Enlarged prostate gland. Signed: Lizzette Smith MDReport Verified Date/Time: 05/03/2019 12:48:10 Reading Location: [facility] B1 C013X Ortho Consult Reading Room [id number] 08:42:00 Test Item Value Reference Range Interpretation Comments POC-CREATININE 0.7 mg/dL 0.6-1.3 TESTED AT [facility] 7200 ([facility]) (test GAVIN BLD G A code = 1859) [facility] 7703 0 POC-EGFR 141 mL/min/1.73M2 ([facility] (test code = 1860) CT, [id number] 12:11:00FINAL REPORT EXAM: CT Chest, Abdomen and Pelvis WITH contrast INDICATION: History of renal cancer. Z85.528 COMPARISON: CT abdomen pelvis dated 07/12/[address] dated 07/11TECHNIQUE: Chest, abdomen and pelvis were scanned utilizing a multidetector helical scanner from the lung apex to the pubic symphysis after administration of IV contrast. Coronal and sagittal reformations were obtained. Dose modulation, iterative reconstruction, and/or weight based adjustment of the mA/kV was utilized to reduce the radiation dose to as low as reasonably achievable. Routine protocol was performed. Scan was performed when during portal venous phase. IV CONTRAST: 150 mL of Isovue-300 ORAL CONTRAST: None. COMPLICATIONS: None RADIATION DOSE: Total DLP: 1311.23 mGy*cm Estimated effective dose: (DLP x 0.015 x size factor) mSv CTDIvol has been reviewed.It is below the limits set by the Radiation Protocol Committee (RPC). FINDINGS: LINES and TUBES: None. LUNGS AND AIRWAYS: Evaluation of the lungs are limited by respiratory motion. Stable 8 mm right upper lobe subpleural nodule. A few additional tiny subpleural right upper lobe nodules are again seen, unchanged. Stable 7 mm right middle lobe subpleural nodule (series 2, image 48). Airways are normal. PLEURA: The pleural spaces are clear. HEART AND MEDIASTINUM: The visualized thyroid gland is normal. No mediastinal, hilar or axillary lymphadenopathy. The heart is enlarged. There is no pericardial effusion. Main pulmonary artery measures 3.2 cm, mildly dilated. Atherosclerotic calcification of coronary arteries. HEPATOBILIARY: 1.1 cm left hepatic lobe segment II hyperenhancing focus (series 1,image 35). On prior multiphasic CT dated 07/12/2018, this lesion showed peripheral nodular discontinuous enhancement on arterial phase, which filled in on portal venous and delayed. No other focal hepatic lesions. No biliary ductal dilation. GALLBLADDER: No radio-opaque stones or sludge. No wall thickening. SPLEEN: No splenomegaly. PANCREAS: No focal masses or ductal dilatation. ADRENALS: No ad renal nodules KIDNEYS/URETERS: Postsurgical changes of resection of the previously seen right renal inferior pole partially exophytic mass. New small focus of right renal superior pole cortical scarring (series 1, image 55). No hydronephrosis. No other renal mass visualized. Unchanged left renal superior pole hypodensity which is too small to characterize. Another left renal midpole hypodensity, seen on prior CT, has resolved on today's exam. No stones. GI TRACT: No abnormal distention, wall thickening, or evidence of bowel obstruction. Large rectal stool burden Appendix is normal. PELVIC ORGA NS/BLADDER: Enlarged prostate gland. Mild bladder wall thickening. LYMPH NODES: No lymphadenopathy. VESSELS: Unremarkable. PERITONEUM / RETROPERITONEUM: No free air or fluid. BONES: Generalized demineralization. Mottled appearance of the iliac bones, left greater than right, limits evaluation of underlying lytic lesions. Old bilateral inferior pubic rami fracture deformities. SOFT TISSUES: Small fat-containing right inguinal hernia. Right mid abdominal wall subcutaneous fat stranding, likely postsurgical (series 1, image 66). IMPRESSION: 1.Stable lung nodules when compared to CT dated 018.2.Postsurgical changes of partial right nephrectomy.3.1.1 cm left hepatic lobe hyperenhancing focus is probably a hemangioma. Close attention on follow-up examination.4.Large rectal stool burden, concerning for fecal impaction. Signed: Chauncey Tavares MDReport Verified Date/Time: 12/24/2018 12:11:19 Reading Location: [facility] Reading Room [address] [place] [address] CT, CHEST, WITH IV [id number] 12:11:00FINAL REPORT EXAM: CT Chest, Abdomen and Pelvis WITH contrast INDICATION: History of renal cancer. Z85.528 COMPARISON: CT abdomen pelvis dated 07/12/[address] dated 07/11/2018TECHNIQUE: Chest, abdomen and pelvis were scanned utilizing a multidetector helical scanner from the lung apex to the pubic symphysis after administration of IV contrast. Coronal and sagittal reformations were obtained. Dose modulation, iterative reconstruction, and/or weight based adjustment of the mA/kV was utilized to reduce the radiation dose to as low as reasonably achievable. Routine protocol was performed. Scan was performed when during portal venous phase. IV CONTRAST: 150 mL of Isovue-300 ORAL CONTRAST: None. COMPLICATIONS: None RADIATION DOSE: Total DLP: 1311.23 mGy*cm Estimated effective dose: (DLP x 0.015 x size factor) mSv CTDIvol has been reviewed.It is below the limits set by the Radiation Protocol Committee (RPC). FINDINGS: LINES and TUBES: None. LUNGS AND AIRWAYS: Evaluation of the lungs are limited by respiratory motion. Stable 8 mm right upper lobe subpleural nodule. A few additional tiny subpleural right upper lobe nodules are again seen, unchanged. Stable 7 mm right middle lobe subpleural nodule (series 2, image 48). Airways are normal. PLEURA: The pleural spaces are clear. HEART AND MEDIASTINUM: The visualized thyroid gland is normal. No mediastinal, hilar or axillary lymphadenopathy. The heart is enlarged. There is no pericardial effusion. Main pulmonary artery measures 3.2 cm, mildly dilated. Atherosclerotic calcification of coronary arteries. HEPATOBILIARY: 1.1 cm left hepatic lobe segment II hyperenhancing focus (series 1,image 35). On prior multiphasic CT dated 07/12/2018, this lesion showed peripheral nodular discontinuous enhancement on arterial phase, which filled in on portal venous and delayed. No other focal hepatic lesions. No biliary ductal dilation. GALLBLADDER: No radio-opaque stones or sludge. No wall thickening. SPLEEN: No splenomegaly. PANCREAS: No focal masses or ductal dilatation. ADRENALS: No adrenal nodules KIDNEYS/URETERS: Postsurgical changes of resection of the previously seen right renal inferior pole partially exophytic mass. New small focus of right renal superior pole cortical scarring (series 1, image 55). No hydronephrosis. No other renal mass visualized. Unchanged left renal superior pole hypodensity which is too small to characterize. Another left renal midpole hypodensity, seen on prior CT, has resolved on today's exam. No stones. GI TRACT: No abnormal distention, wall thickening, or evidence of bowel obstruction. Large rectal stool burden Appendix is normal. PELVIC ORGANS/BLADDER: Enlarged prostate gland. Mild bladder wall thickening. LYMPH NODES: No lymphadenopathy. VESSELS: Unremarkable. PERITONEUM / RETROPERITONEUM: No free air or fluid. BONES: Generalized demineralization. Mottled appearance of the iliac bones, left greater than right, limits evaluation of underlying lytic lesions. Old bilateral inferior pubic rami fracture deformities. SOFT TISSUES: Small fat- containing right inguinal hernia. Right mid abdominal wall subcutaneous fat stranding, likely postsurgical (series 1, image 66). IMPRESSION: 1.Stable lung nodules when compared to CT dated 07/11/2018.2.Postsurgical changes of partial right nephrectomy.3.1.1 cm left hepatic lobe hyperenhancing focus is probably a hemangioma. Close attention on follow-up examination.4.Large rectal stool burden, concerning for fecal impaction. Signed: Chauncey Tavares Verified Date/Time: 12/24/2018 12:11:19 Reading Location: [facility] Reading [facility] [address] [place] [address] RAD, CHEST, 2 [id number] 11:57:00Reason for Exam:->Z85.528FINAL REPORT EXAM: PA and lateral views of the chest. COMPARISON: Chest radiograph 10/25/2018 CLINICAL HISTORY: Z85.528 FINDINGS: Lines/tubes: None. Lungs: Mild low lung volumes. Improving bibasal atelectasis. Pleura: There is no pleural effusion or pneumothorax.Heart and mediastinum: Prominent cardiac silhouette. Bones and soft tissues: Severe degenerative changes of the left shoulder with posttraumatic deformity of the left humeral head. IMPRESSION: Improved bilateral basilar atelectasis when compared to 10/25/2018. Signed: Preeti Chong Verified Date/Time: 12/23/2018 11:57:24 Reading Location: [facility] Reading [facility] [address] [place] [address] [id number] 11:35:00 Test Item Value Reference Range Interpretation Comments POC-CREATININE 0.8 mg/dL 0.6-1.3 TESTED AT [facility] 7200 (ANJALI) (test GAVIN BLD G A code = 1859) [facility] 7703 0 POC-EGFR 121 mL/min/1.73M2 (ANJALI) (test code = 1860) TISSUE [id number] 09:12:00Surgical Pathology Report Case: [id number] Authorizing Provider: Abhijeet Mahmood MD Collected: 10/19/2018 7426 Ordering Location: [facility] Received: 10/19/2018 5207 SERVICES Pathologist: Cm Modi MD Specimens: A) - Lymph Node, Hilar Lymph Node B) -Lymph, Retroperitoneal Lymph node C) - Soft Tissue, Other, base of tumor D) - Soft Tissue, Other, Right renal mass A. LYMPH NODE, HILAR, EXCISION: - FIBROADIPOSE TISSUE, NEGATIVE FOR CARCINOMA - NO LYMPH NODE TISSUE IDENTIFIEDB. LYMPH NODE, RETROPERITONEAL, EXCISION: - ONE BENIGN LYMPH NODE (0/1)C. KIDNEY, BASE OF TUMOR, EXCISION: - FIBROADIPOSE TISSUE, NEGATIVE FOR CARCINOMAD. KIDNEY, RIGHT, PARTIAL NEPHRECTOMY: - RENAL CELLCARCINOMA, FAVOR CLEAR CELL TYPE, WITH SARCOMATOID DIFFERENTIATION, REJI NUCLEAR GRADE 4 OF4, 6.0 CM IN GREATEST DIMENSION, CONFINED TO KIDNEY (SEE COMMENT) - TUMOR NECROSIS PRESENT (10%) - NEGATIVE FOR LYMPHOVASCULAR INVASION - SURGICAL RESECTION MARGINS, NEGATIVE FOR TUMOR - AJCC CLASSIFICATION (7TH EDITION) pT1b, N0, Mx (SEE SYNOPTIC REPORT) Signing Pathologist Direct Phone Line: [phone] signed by Cm Modi MD on 11/01/2018 at 9:12 AMD. The tumor show areas morphologically compatible with clear cell type. Additionally, areas with spindle tumor cells are seen, compatible with sarcomatoid transformation. Areas with papillary features are also seen. By immunohistochemistry, the tumor cells are positive for PAX8 and AMCAR, while predominantly negative for CK7 and CAM5.2. Ki67 labeling index is approximately 3-5%. Additional immunostains will be sent out for further evaluation. An addendum will follow.Intradepartmental consultation: Dr. Dc has reviewed selected slides of this case and concurs with the interpretation of sarcomatoiddifferentiation.KIDNEY: Nephrectomy (Kidney Res - All Specimens)SPECIMEN Procedure: Partial nephrectomy Specimen Laterality: Right TUMOR Tumor Site: Not specified Histologic Type: Clear cell renal cell carcinoma Histologic Grade (WHO / ISUP Grade): G4: Extreme nuclear pleomorphism and / or multi-nuclear giant cells and / or rhabdoid and / or sarcomatoid differentiationTumor Size: Greatest dimension in Centimeters (cm): 6 Centimeters (cm) Additional Dimension in Centimeters (cm): 6 Centimeters (cm) Additional Dimension in Centimeters (cm): 4 Centimeters (cm) Tumor Focality: Unifocal Tumor Extent: Tumor Extension: Tumor limited to kidney Accessory Findings: Sarcomatoid Features: Present Rhabdoid Features: Notidentified Tumor Necrosis: Present Percentage of Necrosis: 10 % LymphovascularInvasion: Not identified MARGINS Margins: Uninvolved by invasive carcinoma LYMPH NODES Number of Lymph Nodes Involved: 0 Number of Lymph Nodes Examined: 1 PATHOLOGIC STAGE CLASSIFICATION (pTNM, AJCC 8th Edition) TNM Descriptors: Not applicable Primary Tumor (pT): pT1b Regional Lymph Nodes (pN): pN0 ADDITIONAL FINDINGS Pathologic Findings in Nonneoplastic Kidney: Insufficient tissue 04452, 88946F3, 24504, 68409, [id number] massA. Hilar lymph node; B. Retroperitoneal lymph node; C. Base of tumor'; D. Right renal massA. Received labeled with the patient's name and information and "lymph node" is a single possible lymphoid tissue measuring 1.2 x 0.8 x 0. 3 cm. The specimen is submitted in toto in cassette A1.B. Received labeled with the patient's name and information and "lymph node" is a 1.0 x 0.8 x 0.3 cm anthony-pink possible lymph node. The specimen is submitted in toto in cassette B1. C. Received fresh for intraoperative consultation labeled with the patient's name and information and "soft tissue" is a 0.5 x 0.4 x 0.2 cm anthony-pink soft tissue specimen. Atouch prep is performed. The specimen is submitted entirely for frozen section in FSC1. SB/plD. Received labeled with the patient's name and information and "soft tissue" is a 73 gm, 6 x 6 x 4 cm circular tumor that is received unoriented. The external surface is inked blue. The specimen is bisected to reveal a partially solid, partially hemorrhagic cut surface that is well-circumscribed and does not appear to invade the adipose and kidney parenchyma present grossly. Mastic Floor Layer sections of tumorand surrounding tissue are submitted in D1 to D8. SB/Eunice, RIGHT, BASE OF TUMOR: - FIBROMUSCULAR AND ADIPOSE TISSUE - NO OVERT TUMOR IS SEENThese results were reported to Dr. Mahmood in OR-[address] Modi at 6 p.m., on October 19, 2018. Performed.The interpretation of this case included the use of immunohistochemistry or special stains.On D7: [place]-8, Cam5.2, CK7, Ki-67, AMCARImmunohistochemistry technical testing was performed at [facility], Pathology Laboratory where it was developed and its performance characteristics were determined. It has not been cleared or approved by the U.S. Food and Drug Administration. The FDA has determined that such clearance or approval is not necessary. The test is used for clinical purposes. It should not be regarded as investigational or for research. This laboratory is certified under the Clinical Laboratory Improvement Amendments of 1988 (CLIA-88) as qualified to perform high complexity clinical laboratory testing.SPUTUM CULTURE + GRAM [id number] 09:23:00 Test Item Value Reference Range Interpretation Comments CULTURE (BEAKER) 4+ Normal respiratory (test code = 1095) david present GRAM STAIN RESULT <1+ WBCs (BEAKER) (test code = 1123) GRAM STAIN RESULT 0-5 epithelial cells (BEAKER) (test code = 95728) GRAM STAIN RESULT 1+ gram positive cocci (BEAKER) (test code = in chains, pairs and 62875) clusters POCT-GLUCOSE [id number] 16:57:00 Test Item Value Reference Range Interpretation Comments POC-GLUCOSE METER 246 mg/dL 70-110 H TESTED AT [facility] 6720 [facility] (test code = [facility] 1538) [address] POCT-GLUCOSE [id number] 12:56:00 Test Item Value Reference Range Interpretation Comments POC-GLUCOSE METER 238 mg/dL 70-110 H TESTED AT [facility] 6720 (BEAble Device) (test code = [facility] 1538) [address] CBC W/PLT COUNT & AUTO [id number] 08:28:00 Test Item Value Reference Range Interpretation Comments WHITE BLOOD CELL COUNT (BEAKER) 6.9 K/ L 3.5-10.5 (test code = 775) RED BLOOD CELL COUNT (BEAKER) 3.26 M/ L 4.63-6.08 L (test code = 761) HEMOGLOBIN (BEAKER) (test code = 9.2 GM/DL 13.7-17.5 L 410) HEMATOCRIT (BEAKER) (test code = 29.3 % 40.1-51.0 L 411) MEAN CORPUSCULAR VOLUME (BEAKER) 89.9 fL 79.0-92.2 (test code = 753) MEAN CORPUSCULAR HEMOGLOBIN 28.2 pg 25.7-32.2 (BEAKER) (test code = 751) MEAN CORPUSCULAR HEMOGLOBIN CONC 31.4 GM/DL 32.3-36.5 L (BEAKER) (test code = 752) RED CELL DISTRIBUTION WIDTH 13.1 % 11.6-14.4 (BEAKER) (test code = 412) PLATELET COUNT (BEAKER) (test 205 K/CU MM 150-450 code = 756) MEAN PLATELET VOLUME (BEAKER) 10.6 fL 9.4-12.4 (test code = 754) NUCLEATED RED BLOOD CELLS 0 /100 WBC 0-0 (BEAKER) (test code = 413) NEUTROPHILS RELATIVE PERCENT 54 % (BEAKER) (test code = 429) LYMPHOCYTES RELATIVE PERCENT 21 % (BEAKER) (test code = 430) MONOCYTES RELATIVE PERCENT 10 % (BEAKER) (test code = 431) EOSINOPHILS RELATIVE PERCENT 13 % (BEAKER) (test code = 432) BASOPHILS RELATIVE PERCENT 0 % (BEAKER) (test code = 437) NEUTROPHILS ABSOLUTE COUNT 3.70 K/ L 1.78-5.38 (BEAKER) (test code = 670) LYMPHOCYTES ABSOLUTE COUNT 1.43 K/ L 1.32-3.57 (BEAKER) (test code = 414) MONOCYTES ABSOLUTE COUNT (BEAKER) 0.69 K/ L 0.30-0.82 (test code = 415) EOSINOPHILS ABSOLUTE COUNT 0.92 K/ L 0.04-0.54 H (BEAKER) (test code = 416) BASOPHILS ABSOLUTE COUNT (BEAKER) 0.03 K/ L 0.01-0.08 (test code = 417) IMMATURE GRANULOCYTES-RELATIVE 1 % 0-1 PERCENT (BEAKER) (test code = 2801) [id number] 08:26:00 Test Item Value Reference Range Interpretation Comments PHOSPHORUS (BEAKER) (test code = 3.4 mg/dL 2.3-4.7 604) [id number] 08:26:00 Test Item Value Reference Range Interpretation Comments MAGNESIUM (BEAKER) (test code = 1.9 mg/dL 1.6-2.6 627) BASIC METABOLIC [id number] 08:26:00 Test Item Value Reference Range Interpretation Comments SODIUM (BEAKER) 138 meq/L 136-145 (test code = 381) POTASSIUM (BEAKER) 4.2 meq/L 3.5-5.1 (test code = 379) CHLORIDE (BEAKER) 105 meq/L 98-107 (test code = 382) CO2 (BEAKER) (test 26 meq/L 22-29 code = 355) BLOOD UREA NITROGEN 4 mg/dL 7-21 L (BEAKER) (test code = 354) CREATININE (BEAKER) 0.88 mg/dL 0.57-1.25 (test code = 358) GLUCOSE RANDOM 126 mg/dL 70-105 H (BEAKER) (test code = 652) CALCIUM (BEAKER) 9.1 mg/dL 8.4-10.2 (test code = 697) EGFR (BEAKER) (test 109 mL/min/1.73 ESTIM ATED GFR IS code = 1092) sq m NOT ACCURATE CREATININE CLEARANCE IN PREDICTING GLOMERULAR FILTRATION RATE . ESTIMATED GFR I S NOT APPLICABLE FOR DIALYSIS PATIEN TS. POCT-GLUCOSE [id number] 21:52:00 Test Item Value Reference Range Interpretation Comments POC-GLUCOSE METER 130 mg/dL 70-110 H TESTED AT [facility] 6720 ([facility]) (test code = [facility] [place] 1538) [address] POCT-GLUCOSE [id number] 16:41:00 Test Item Value Reference Range Interpretation Comments POC-GLUCOSE METER 242 mg/dL 70-110 H TESTED AT [facility] 6720 ([facility]) (test code = [facility] [place] 1538) [address] RAD, CHEST, 1 VIEW, NON [id number] 15:52:00Reason for exam:->eval for pulmonary edemaShould this be performed at the bedside?->YesFINAL REPORT AP view of the chest dated 10/25/2018 COMPARISON: October 24, 2018CLINICAL INFORMATION: eval for pulmonary edema Comment: Heart is normal in size. Pulmonary vasculature is unremarkable. Subsegmental atelectasis is seen in both lung bases. The rest of the lungs are clear. No pulmonary infiltrate or pleural effusion is present. Impression: Bibasilar subsegmental atelectasis. Signed: Laura Hannah MDReport Verified Date/Time: 10/25/2018 15:52:14 Reading Location: [address] Consult Reading Room POCT-GLUCOSE [id number] 11:57:00 Test Item Value Reference Range Interpretation Comments POC-GLUCOSE METER 202 mg/dL 70-110 H TESTED AT [place] [address] ([facility]) ([facility] = [facility] 1538) [address] POCT-GLUCOSE [id number] 08:32:00 Test Item Value Reference Range Interpretation Comments POC-GLUCOSE METER 179 mg/dL 70-110 H TESTED AT [place] [address] ([facility]) (test code = [facility] 1538) [address] [id number] 07:11:00 Test Item Value Reference Range Interpretation Comments PHOSPHORUS (BEAKER) (test code = 3.3 mg/dL 2.3-4.7 604) [id number] 07:11:00 Test Item Value Reference Range Interpretation Comments MAGNESIUM (BEAKER) (test code = 1.7 mg/dL 1.6-2.6 627) BASIC METABOLIC [id number] 07:11:00 Test Item Value Reference Range Interpretation Comments SODIUM (BEAKER) 136 meq/L 136-145 (test code = 381) POTASSIUM (BEAKER) 3.8 meq/L 3.5-5.1 (test code = 379) CHLORIDE (BEAKER) 106 meq/L 98-107 (test code = 382) CO2 (BEAKER) (test 22 meq/L 22-29 code = 355) BLOOD UREA NITROGEN 5 mg/dL 7-21 L (BEAKER) (test code = 354) CREATININE (BEAKER) 0.89 mg/dL 0.57-1.25 (test code = 358) GLUCOSE RANDOM 149 mg/dL 70-105 H (BEAKER) (test code = 652) CALCIUM (BEAKER) 9.1 mg/dL 8.4-10.2 (test code = 697) EGFR (BEAKER) (test 107 mL/min/1.73 ESTIM ATED GFR IS code = 1092) sq m NOT ACCURATE CREATININE CLEARANCE IN PREDICTING GLOMERULAR FILTRATION RATE . ESTIMATED GFR I S NOT APPLICABLE FOR DIALYSIS PATIEN TS. CBC W/PLT COUNT & AUTO [id number] 06:57:00 Test Item Value Reference Range Interpretation Comments WHITE BLOOD CELL COUNT (BEAKER) 7.0 K/ L 3.5-10.5 (test code = 775) RED BLOOD CELL COUNT (BEAKER) 3.33 M/ L 4.63-6.08 L (test code = 761) HEMOGLOBIN (BEAKER) (test code = 9.4 GM/DL 13.7-17.5 L 410) HEMATOCRIT (BEAKER) (test code = 29.9 % 40.1-51.0 L 411) MEAN CORPUSCULAR VOLUME (BEAKER) 89.8 fL 79.0-92.2 (test code = 753) MEAN CORPUSCULAR HEMOGLOBIN 28.2 pg 25.7-32.2 (BEAKER) (test code = 751) MEAN CORPUSCULAR HEMOGLOBIN CONC 31.4 GM/DL 32.3-36.5 L (BEAKER) (test code = 752) RED CELL DISTRIBUTION WIDTH 13.1 % 11.6-14.4 (BEAKER) (test code = 412) PLATELET COUNT (BEAKER) (test 188 K/CU MM 150-450 code = 756) MEAN PLATELET VOLUME (BEAKER) 10.9 fL 9.4-12.4 (test code = 754) NUCLEATED RED BLOOD CELLS 0 /100 WBC 0-0 (BEAKER) (test code = 413) NEUTROPHILS RELATIVE PERCENT 52 % (BEAKER) (test code = 429) LYMPHOCYTES RELATIVE PERCENT 22 % (BEAKER) (test code = 430) MONOCYTES RELATIVE PERCENT 11 % (BEAKER) (test code = 431) EOSINOPHILS RELATIVE PERCENT 14 % (BEAKER) (test code = 432) BASOPHILS RELATIVE PERCENT 0 % (BEAKER) (test code = 437) NEUTROPHILS ABSOLUTE COUNT 3.64 K/ L 1.78-5.38 (BEAKER) (test code = 670) LYMPHOCYTES ABSOLUTE COUNT 1.53 K/ L 1.32-3.57 (BEAKER) (test code = 414) MONOCYTES ABSOLUTE COUNT (BEAKER) 0.73 K/ L 0.30-0.82 (test code = 415) EOSINOPHILS ABSOLUTE COUNT 0.94 K/ L 0.04-0.54 H (BEAKER) (test code = 416) BASOPHILS ABSOLUTE COUNT (BEAKER) 0.03 K/ L 0.01-0.08 (test code = 417) IMMATURE GRANULOCYTES-RELATIVE 1 % 0-1 PERCENT (BEAKER) (test code = 2801) SPUTUM CULTURE + GRAM [id number] 01:06:00 Test Item Value Reference Range Interpretation Comments CULTURE (BEAKER) Oropharyngeal (test code = 1095) contamination, specimen rejected. Recollect requested. GRAM STAIN RESULT <1+ WBCs (BEAKER) (test code = 1123) GRAM STAIN RESULT >25 epithelial cells (BEAKER) (test code = 39830) GRAM STAIN RESULT <1+ gram negative rods (BEAKER) (test code = 14564) GRAM STAIN RESULT 1+ gram positive rods (BEAKER) (test code = 920367) GRAM STAIN RESULT 4+ gram positive cocci in (BEAKER) (test code chains, pairs and = 452805) clusters POCT-GLUCOSE [id number] 18:16:00 Test Item Value Reference Range Interpretation Comments POC-GLUCOSE METER 173 mg/dL 70-110 H TESTED AT [facility] 6720 (BEAKER) (test code = ELIAS [facility]go[facility] 1538) [address] RAD, CHEST, 1 VIEW, NON [id number] 15:21:00Reason for exam:->SOBShould this be performed at the bedside?->YesFINAL REPORT AP chest HISTORY: Shortness of breath COMPARISON: 10/23/2017 IMPRESSION:Intact skeleton. Heart size normal. Bibasilar atelectasis. No pneumothorax. Signed: Jeremy Dougherty MDReport Verified Date/Time: 10/24/2018 15:21:04 Reading Location: [facility] C013T Transitional Reading Room POCT-GLUCOSE [id number] 12:58:00 Test Item Value Reference Range Interpretation Comments POC-GLUCOSE METER 315 mg/dL 70-110 H TESTED AT [facility] 6720 (BEAKER) (test code = [facility] [place] 1538) [address] [id number] 07:04:00 Test Item Value Reference Range Interpretation Comments PHOSPHORUS (BEAKER) (test code = 4.1 mg/dL 2.3-4.7 604) [id number] 07:04:00 Test Item Value Reference Range Interpretation Comments MAGNESIUM (BEAKER) (test code = 1.7 mg/dL 1.6-2.6 627) BASIC METABOLIC [id number] 07:04:00 Test Item Value Reference Range Interpretation Comments SODIUM (BEAKER) 139 meq/L 136-145 (test code = 381) POTASSIUM (BEAKER) 3.6 meq/L 3.5-5.1 (test code = 379) CHLORIDE (BEAKER) 105 meq/L 98-107 (test code = 382) CO2 (BEAKER) (test 22 meq/L 22-29 code = 355) BLOOD UREA NITROGEN 6 mg/dL 7-21 L (BEAKER) (test code = 354) CREATININE (BEAKER) 0.87 mg/dL 0.57-1.25 (test code = 358) GLUCOSE RANDOM 149 mg/dL 70-105 H (BEAKER) (test code = 652) CALCIUM (BEAKER) 9.3 mg/dL 8.4-10.2 (test code = 697) EGFR (BEAKER) (test 110 mL/min/1.73 ESTIM ATED GFR IS code = 1092) sq m NOT ACCURATE CREATININE CLEARANCE IN PREDICTING GLOMERULAR FILTRATION RATE . ESTIMATED GFR I S NOT APPLICABLE FOR DIALYSIS PATIEN TS. CBC W/PLT COUNT & AUTO [id number] 06:56:00 Test Item Value Reference Range Interpretation Comments WHITE BLOOD CELL COUNT (BEAKER) 6.5 K/ L 3.5-10.5 (test code = 775) RED BLOOD CELL COUNT (BEAKER) 3.33 M/ L 4.63-6.08 L (test code = 761) HEMOGLOBIN (BEAKER) (test code = 9.4 GM/DL 13.7-17.5 L 410) HEMATOCRIT (BEAKER) (test code = 29.5 % 40.1-51.0 L 411) MEAN CORPUSCULAR VOLUME (BEAKER) 88.6 fL 79.0-92.2 (test code = 753) MEAN CORPUSCULAR HEMOGLOBIN 28.2 pg 25.7-32.2 (BEAKER) (test code = 751) MEAN CORPUSCULAR HEMOGLOBIN CONC 31.9 GM/DL 32.3-36.5 L (BEAKER) (test code = 752) RED CELL DISTRIBUTION WIDTH 13.0 % 11.6-14.4 (BEAKER) (test code = 412) PLATELET COUNT (BEAKER) (test 173 K/CU MM 150-450 code = 756) MEAN PLATELET VOLUME (BEAKER) 11.0 fL 9.4-12.4 (test code = 754) NUCLEATED RED BLOOD CELLS 0 /100 WBC 0-0 (BEAKER) (test code = 413) NEUTROPHILS RELATIVE PERCENT 59 % (BEAKER) (test code = 429) LYMPHOCYTES RELATIVE PERCENT 19 % (BEAKER) (test code = 430) MONOCYTES RELATIVE PERCENT 12 % (BEAKER) (test code = 431) EOSINOPHILS RELATIVE PERCENT 9 % (BEAKER) (test code = 432) BASOPHILS RELATIVE PERCENT 0 % (BEAKER) (test code = 437) NEUTROPHILS ABSOLUTE COUNT 3.79 K/ L 1.78-5.38 (BEAKER) (test code = 670) LYMPHOCYTES ABSOLUTE COUNT 1.26 K/ L 1.32-3.57 L (BEAKER) (test code = 414) MONOCYTES ABSOLUTE COUNT (BEAKER) 0.77 K/ L 0.30-0.82 (test code = 415) EOSINOPHILS ABSOLUTE COUNT 0.60 K/ L 0.04-0.54 H (BEAKER) (test code = 416) BASOPHILS ABSOLUTE COUNT (BEAKER) 0.02 K/ L 0.01-0.08 (test code = 417) IMMATURE GRANULOCYTES-RELATIVE 1 % 0-1 PERCENT (BEAKER) (test code = 2801) POCT-GLUCOSE [id number] 21:33:00 Test Item Value Reference Range Interpretation Comments POC-GLUCOSE METER 195 mg/dL 70-110 H TESTED AT [facility] 6720 ([facility]) (test code = ELIAS [facility]go[facility] 1538) [address] RAD, ABDOMEN/KUB, 1 VIEW [id number] 20:09:00Reason for exam:->abdominal distentionShould this be performed at the bedside?->YesFINAL REPORT Abdomen one view Comparison: None. Reason for exam: abdominal di stention Findings: Supine view of the abdomen demonstrates diffuse gaseous distention of small and large bowel loops compatible with an ileus. There are no abnormal calcifications. There are mild atelectatic changes in the left lung base. Impression:Findings compatible with an ileus. Signed: Angel Palumbo Verified Date/Time: 10/23/2018 20:09:42 Reading Location: [address] Body ReadingRoom POCT-GLUCOSE [id number] 16:49:00 Test Item Value Reference Range Interpretation Comments POC-GLUCOSE METER 311 mg/dL 70-110 H TESTED AT [facility] 67 ([facility]) (test code = ELIAS Melgoza [facility] 1538) [address] POCT-GLUCOSE [id number] 13:44:00 Test Item Value Reference Range Interpretation Comments POC-GLUCOSE METER 239 mg/dL 70-110 H TESTED AT [place] [address] ([facility]) (test code = ELIAS Melgoza [facility] 1538) [address] RAD, CHEST, 1 VIEW, NON [id number] 08:59:00Reason for exam:->SOBShould this be performed at the bedside?->YesFINAL REPORT RAD, CHEST, 1 VIEW, NON DEPT INDICATION: SOB COMPARISON: October 22, 2018 FINDINGS: Portable frontal view of the chest. IMPRESSION: Support Lines: External leads Lungs and pleura: Low lung volumes with consequent basilar crowding and basilar subsegmental atelectasis. No dae airspace edema. Superimposed infection may be excluded clinically. No pneumothorax.Heartand mediastinum: Stable contours. Additional findings: None. Signed: Blanche Dang Verified Date/Time: 10/23/2018 08:59:13 Reading Location: [facility] B1 C013V Neuro Reading Room Electronicallysigned by: BLANCHE DANG MD on 10/23/2018 08:59 AMPOCT-GLUCOSE [id number] 08:09:00 Test Item Value Reference Range Interpretation Comments POC-GLUCOSE METER 185 mg/dL 70-110 H TESTED AT [facility] 6720 (BEAKER) (test code = [facility] [place] 1538) [address] [id number] 06:28:00 Test Item Value Reference Range Interpretation Comments PHOSPHORUS (BEAKER) (test code = 3.1 mg/dL 2.3-4.7 604) [id number] 06:28:00 Test Item Value Reference Range Interpretation Comments MAGNESIUM (BEAKER) (test code = 1.7 mg/dL 1.6-2.6 627) BASIC METABOLIC [id number] 06:28:00 Test Item Value Reference Range Interpretation Comments SODIUM (BEAKER) 137 meq/L 136-145 (test code = 381) POTASSIUM (BEAKER) 3.7 meq/L 3.5-5.1 (test code = 379) CHLORIDE (BEAKER) 104 meq/L 98-107 (test code = 382) CO2 (BEAKER) (test 23 meq/L 22-29 code = 355) BLOOD UREA NITROGEN 6 mg/dL 7-21 L (BEAKER) (test code = 354) CREATININE (BEAKER) 1.03 mg/dL 0.57-1.25 (test code = 358) GLUCOSE RANDOM 152 mg/dL 70-105 H (BEAKER) (test code = 652) CALCIUM (BEAKER) 9.5 mg/dL 8.4-10.2 (test code = 697) EGFR (BEAKER) (test 91 mL/min/1.73 ESTIMA ARIELLE GFR IS code = 1092) sq m NOT ACCURATE CREATININE CLEARANCE IN PREDICTING GLOMERULAR FILTRATION RATE . ESTIMATED GFR I S NOT APPLICABLE FOR DIALYSIS PATIEN TS. HEMOGLOBIN AND [id number] 05:24:00 Test Item Value Reference Range Interpretation Comments HEMOGLOBIN (BEAKER) (test code = 9.3 GM/DL 13.7-17.5 L 410) HEMATOCRIT (BEAKER) (test code = 29.8 % 40.1-51.0 L 411) CREATININE, BODY [id number] 01:47:00 Test Item Value Reference Range Interpretation Comments CREATININE FLUID (BEAKER) (test 0.91 mg/dL code = 677) Reference Range: No Normals Assay performance has not been validated for this type of specimen.Please place ostomy bag over midline wound to collect fluid to send for CreatininePOCT-GLUCOSE [id number] 21:35:00 Test Item Value Reference Range Interpretation Comments POC-GLUCOSE METER 213 mg/dL 70-110 H TESTED AT [place] [address] ([facility]) (test code = [facility] 1538) [address] POCT-GLUCOSE [id number] 19:01:00 Test Item Value Reference Range Interpretation Comments POC-GLUCOSE METER 202 mg/dL 70-110 H TESTED AT [place] [address] ([facility]) (test code = [facility] 1538) [address] [id number] 15:55:00 Test Item Value Reference Range Interpretation Comments PARTIAL THROMBOPLASTIN TIME 38.0 seconds 22.5-36.0 H (AKER) (test code = 760) PROTHROMBIN [id number] 15:54:00 Test Item Value Reference Range Interpretation Comments PROTIME ([facility]) (test code = 15.4 seconds 11.7-14.7 H 759) INR ([facility]) (test code = 370) 1.2 <=5.9 RECOMMENDED COUMADIN/WARFARIN INR THERAPY RANGESSTANDARD DOSE: 2.0 - 3.0 Includes: PROPHYLAXIS forvenous thrombosis, systemic embolization; TREATMENT for venous thrombosis and/or pulmonary embolus.HIGH RISK: Target INR is 2.5-3.5 for patients with mechanical heart valves.[id number] 15:44:00 Test Item Value Reference Range Interpretation Comments MAGNESIUM (BEAKER) 2.0 mg/dL 1.6-2.6 Specimen slightly (test code = 627) hemolyzed BASIC METABOLIC [id number] 15:44:00 Test Item Value Reference Range Interpretation Comments SODIUM (BEAKER) 136 meq/L 136-145 (test code = 381) POTASSIUM (BEAKER) 3.8 meq/L 3.5-5.1 Specimen slightly (test code = 379) hemolyzed CHLORIDE (BEAKER) 101 meq/L 98-107 (test code = 382) CO2 (BEAKER) (test 25 meq/L 22-29 code = 355) BLOOD UREA NITROGEN 6 mg/dL 7-21 L (BEAKER) (test code = 354) CREATININE (BEAKER) 1.18 mg/dL 0.57-1.25 Specimen slightly (test code = 358) hemolyzed GLUCOSE RANDOM 178 mg/dL 70-105 H (BEAKER) (test code = 652) CALCIUM (BEAKER) 9.7 mg/dL 8.4-10.2 (test code = 697) EGFR (BEAKER) (test 77 mL/min/1.73 ESTIMA ARIELLE GFR IS code = 1092) sq m NOT ACCURATE CREATININE CLEARANCE IN PREDICTING GLOMERULAR FILTRATION RATE . ESTIMATED GFR I S NOT APPLICABLE FOR DIALYSIS PATIEN TS. HEMOGLOBIN AND [id number] 15:31:00 Test Item Value Reference Range Interpretation Comments HEMOGLOBIN (BEAKER) (test code = 9.5 GM/DL 13.7-17.5 L 410) HEMATOCRIT (BEAKER) (test code = 29.8 % 40.1-51.0 L 411) POCT-GLUCOSE [id number] 13:55:00 Test Item Value Reference Range Interpretation Comments POC-GLUCOSE METER 252 mg/dL 70-110 H TESTED AT [facility] 6720 (BEAKER) (test code = [place] 1538) [address] HEPATIC FUNCTION [id number] 11:12:00 Test Item Value Reference Range Interpretation Comments TOTAL PROTEIN (BEAKER) (test code = 6.3 gm/dL 6.0-8.3 770) ALBUMIN (BEAKER) (test code = 1145) 3.4 g/dL 3.5-5.0 L BILIRUBIN TOTAL (BEAKER) (test code 0.8 mg/dL 0.2-1.2 = 377) BILIRUBIN DIRECT (BEAKER) (test 0.3 mg/dL 0.1-0.5 code = 706) ALKALINE PHOSPHATASE (BEAKER) (test 61 U/L 40-150 code = 346) AST (SGOT) (BEAKER) (test code = 20 U/L 5-34 353) ALT (SGPT) (BEAKER) (test code = 9 U/L 6-55 347) RAD, CHEST, 1 VIEW, NON [id number] 09:35:00Reason for exam:->SOBShould this be performed at the bedside?->YesFINAL REPORT Portable chest. CLINICAL HISTORY: SOB. COMPARISON STUDY: Chest x-ray from yesterday. FINDINGS: The cardiac silhouette is enlarged. The pulmonary parenchyma demonstrates increased interstitial and atelectatic changes, similar to previous. No pneumothorax is seen. Degenerative changes are noted. IMPRESSION: No significant change. Signed: Eleno Hutton MDReport Verified Date/Time: 10/22/2018 09:35:30 Reading Location: [facility] Radiology Reading Room POCT-GLUCOSE [id number] 07:52:00 Test Item Value Reference Range Interpretation Comments POC-GLUCOSE METER 161 mg/dL 70-110 H TESTED AT [facility] 6720 (BEAKER) (test code = [place] 1538) [address] [id number] 05:48:00 Test Item Value Reference Range Interpretation Comments MAGNESIUM (BEAKER) (test code = 1.8 mg/dL 1.6-2.6 627) BASIC METABOLIC [id number] 05:48:00 Test Item Value Reference Range Interpretation Comments SODIUM (BEAKER) 136 meq/L 136-145 (test code = 381) POTASSIUM (BEAKER) 4.1 meq/L 3.5-5.1 (test code = 379) CHLORIDE (BEAKER) 105 meq/L 98-107 (test code = 382) CO2 (BEAKER) (test 23 meq/L 22-29 code = 355) BLOOD UREA NITROGEN 6 mg/dL 7-21 L (BEAKER) (test code = 354) CREATININE (BEAKER) 1.04 mg/dL 0.57-1.25 (test code = 358) GLUCOSE RANDOM 131 mg/dL 70-105 H (BEAKER) (test code = 652) CALCIUM (BEAKER) 9.1 mg/dL 8.4-10.2 (test code = 697) EGFR (BEAKER) (test 90 mL/min/1.73 ESTIMA ARIELLE GFR IS code = 1092) sq m NOT ACCURATE CREATININE CLEARANCE IN PREDICTING GLOMERULAR FILTRATION RATE . ESTIMATED GFR I S NOT APPLICABLE FOR DIALYSIS PATIEN TS. [id number] 05:48:00 Test Item Value Reference Range Interpretation Comments PHOSPHORUS (BEAKER) (test code = 2.6 mg/dL 2.3-4.7 604) HEMOGLOBIN AND [id number] 05:04:00 Test Item Value Reference Range Interpretation Comments HEMOGLOBIN (BEAKER) (test code = 8.7 GM/DL 13.7-17.5 L 410) HEMATOCRIT (BEAKER) (test code = 27.9 % 40.1-51.0 L 411) POCT-GLUCOSE [id number] 21:42:00 Test Item Value Reference Range Interpretation Comments POC-GLUCOSE METER 176 mg/dL 70-110 H TESTED AT [place] [address] ([facility]) (test code = [place] 1538) [address] RAD, CHEST, 2 [id number] 20:45:00Reason for exam:->Pre-opShould this be performed at the bedside?->NoFINAL REPORT Examination: Two view Chest X-ray. CLINICAL HISTORY: Preoperative evaluation, surgery unspecified COMPARISON: 07/23/2012 2 views of the upright chest are submitted. The examination is significantly limited by patient body habitus, low lung volumes and arm positionon the lateral view obscuring the entire chest. The cardiac silhouette is stable in its enlargement. There is central pulmonary vascular congestion. The right hemidiaphragm is elevated. Bilateral mid and lower lung opacities may reflect a combination of atelectasis and edema but pneumonitis should beexcluded clinically. There is no pneumothorax or acute bony abnormality. Degenerative changes are present in the shoulder and spine. Signed: Annie De La Cruz MDReport Verified Date/Time: 10/21/2018 20:45:31 Reading Location: [address] Reading Room POCT-GLUCOSE [id number] 18:43:00 Test Item Value Reference Range Interpretation Comments POC-GLUCOSE METER 237 mg/dL 70-110 H TESTED AT [place] [address] ([facility]) (test code = ELI[place] 1538) [address] [id number] 16:57:00 Test Item Value Reference Range Interpretation Comments PARTIAL THROMBOPLASTIN TIME 37.9 seconds 22.5-36.0 H (BEAKER) (test code = 760) Draw at 4pm pleaseDraw at 4pm pleasePROTHROMBIN [id number] 16:55:00 Test Item Value Reference Range Interpretation Comments PROTIME (BEAKER) (test code = 16.1 seconds 11.7-14.7 H 759) INR (BEAKER) (test code = 370) 1.3 <=5.9 RECOMMENDED COUMADIN/WARFARIN INR THERAPY RANGESSTANDARD DOSE: 2.0 - 3.0 Includes: PROPHYLAXIS forvenous thrombosis, systemic embolization; TREATMENT for venous thrombosis and/or pulmonary embolus.HIGH RISK: Target INR is 2.5-3.5 for patients with mechanical heart valves.Draw at 4pm pleaseDraw at 4pm please HEMOGLOBIN AND [id number] 16:43:00 Test Item Value Reference Range Interpretation Comments HEMOGLOBIN (BEAKER) (test code = 9.4 GM/DL 13.7-17.5 L 410) HEMATOCRIT (BEAKER) (test code = 30.8 % 40.1-51.0 L 411) Draw at 4pm pleasePOCT-GLUCOSE [id number] 14:06:00 Test Item Value Reference Range Interpretation Comments POC-GLUCOSE METER 193 mg/dL 70-110 H TESTED AT [facility] 6720 (BEAKER) (test code = [place] 1538) [address] [id number] 10:38:00 Test Item Value Reference Range Interpretation Comments PHOSPHORUS (BEAKER) (test code = 3.2 mg/dL 2.3-4.7 604) [id number] 10:38:00 Test Item Value Reference Range Interpretation Comments MAGNESIUM (BEAKER) (test code = 2.0 mg/dL 1.6-2.6 627) BASIC METABOLIC [id number] 10:38:00 Test Item Value Reference Range Interpretation Comments SODIUM (BEAKER) 137 meq/L 136-145 (test code = 381) POTASSIUM (BEAKER) 4.4 meq/L 3.5-5.1 (test code = 379) CHLORIDE (BEAKER) 108 meq/L 98-107 H (test code = 382) CO2 (BEAKER) (test 19 meq/L 22-29 L code = 355) BLOOD UREA NITROGEN 11 mg/dL 7-21 ([facility]) (test code = 354) CREATININE (BEAKER) 1.29 mg/dL 0.57-1.25 H (test code = 358) GLUCOSE RANDOM 137 mg/dL 70-105 H (BEAKER) (test code = 652) CALCIUM (BEAKER) 9.0 mg/dL 8.4-10.2 (test code = 697) EGFR [facility] (test 70 mL/min/1.73 ESTIMA ARIELLE GFR IS code = 1092) sq m NOT ACCURATE CREATININE CLEARANCE IN PREDICTING GLOMERULAR FILTRATION RATE . ESTIMATED GFR I S NOT APPLICABLE FOR DIALYSIS PATIEN TS. HEMOGLOBIN AND [id number] 08:59:00 Test Item Value Reference Range Interpretation Comments HEMOGLOBIN (BEAKER) (test code = 9.2 GM/DL 13.7-17.5 L 410) HEMATOCRIT ([facility]) (test code = 29.0 % 40.1-51.0 L 411) POCT-GLUCOSE [id number] 07:58:00 Test Item Value Reference Range Interpretation Comments POC-GLUCOSE METER 170 mg/dL 70-110 H TESTED AT [place] [address] ([facility]) (test code = [facility] [place] 1538) [address] POCT-GLUCOSE [id number] 00:50:00 Test Item Value Reference Range Interpretation Comments POC-GLUCOSE METER 214 mg/dL 70-110 H TESTED AT [place] [address] ([facility]) (test code = [facility] [place] 1538) [address] POCT-GLUCOSE [id number] 17:28:00 Test Item Value Reference Range Interpretation Comments POC-GLUCOSE METER 260 mg/dL 70-110 H TESTED AT [place] [address] ([facility]) (test code = [facility] [place] 1538) [address] [id number] 16:02:00 Test Item Value Reference Range Interpretation Comments MAGNESIUM ([facility]) (test code = 1.5 mg/dL 1.6-2.6 L 627) POCT-GLUCOSE [id number] 14:49:00 Test Item Value Reference Range Interpretation Comments POC-GLUCOSE METER 248 mg/dL 70-110 H TESTED AT [place] [address] ([facility]) (test code = [facility] [place] 1538) [address] BASIC METABOLIC [id number] 07:27:00 Test Item Value Reference Range Interpretation Comments SODIUM (BEAKER) 138 meq/L 136-145 (test code = 381) POTASSIUM (BEAKER) 3.9 meq/L 3.5-5.1 (test code = 379) CHLORIDE (BEAKER) 105 meq/L 98-107 (test code = 382) CO2 (BEAKER) (test 25 meq/L 22-29 code = 355) BLOOD UREA NITROGEN 7 mg/dL 7-21 (BEAKER) (test code = 354) CREATININE (BEAKER) 0.91 mg/dL 0.57-1.25 (test code = 358) GLUCOSE RANDOM 164 mg/dL 70-105 H (BEAKER) (test code = 652) CALCIUM (BEAKER) 9.0 mg/dL 8.4-10.2 (test code = 697) EGFR (BEAKER) (test 104 mL/min/1.73 ESTIM ATED GFR IS code = 1092) sq m NOT ACCURATE CREATININE CLEARANCE IN PREDICTING GLOMERULAR FILTRATION RATE . ESTIMATED GFR I S NOT APPLICABLE FOR DIALYSIS PATIEN TS. HEMOGLOBIN AND [id number] 06:39:00 Test Item Value Reference Range Interpretation Comments HEMOGLOBIN (BEAKER) (test code = 9.9 GM/DL 13.7-17.5 L 410) HEMATOCRIT (BEAKER) (test code = 31.7 % 40.1-51.0 L 411) POCT-GLUCOSE [id number] 06:29:00 Test Item Value Reference Range Interpretation Comments POC-GLUCOSE METER 205 mg/dL 70-110 H TESTED AT [facility] 6720 (BEAKER) (test code = [facility] Melgo[facility] 1538) [address] POCT-GLUCOSE [id number] 22:44:00 Test Item Value Reference Range Interpretation Comments POC-GLUCOSE METER 234 mg/dL 70-110 H TESTED AT [facility] 6720 (BEAKER) (test code = [facility] Melgo[facility] 1538) [address] BASIC METABOLIC [id number] 20:57:00 Test Item Value Reference Range Interpretation Comments SODIUM (BEAKER) 140 meq/L 136-145 (test code = 381) POTASSIUM (BEAKER) 3.8 meq/L 3.5-5.1 (test code = 379) CHLORIDE (BEAKER) 105 meq/L 98-107 (test code = 382) CO2 (BEAKER) (test 21 meq/L 22-29 L code = 355) BLOOD UREA NITROGEN 11 mg/dL 7-21 (BEAKER) (test code = 354) CREATININE (BEAKER) 1.03 mg/dL 0.57-1.25 (test code = 358) GLUCOSE RANDOM 205 mg/dL 70-105 H (BEAKER) (test code = 652) CALCIUM (BEAKER) 8.9 mg/dL 8.4-10.2 (test code = 697) EGFR (BEAKER) (test 91 mL/min/1.73 ESTIMA ARIELLE GFR IS code = 1092) sq m NOT ACCURATE CREATININE CLEARANCE IN PREDICTING GLOMERULAR FILTRATION RATE . ESTIMATED GFR I S NOT APPLICABLE FOR DIALYSIS PATIEN TS. HEMOGLOBIN AND [id number] 20:39:00 Test Item Value Reference Range Interpretation Comments HEMOGLOBIN (BEAKER) (test code = 10.2 GM/DL 13.7-17.5 L 410) HEMATOCRIT (BEAKER) (test code = 31.8 % 40.1-51.0 L 411) POCT-GLUCOSE [id number] 20:19:00 Test Item Value Reference Range Interpretation Comments POC-GLUCOSE METER 221 mg/dL 70-110 H TESTED AT [facility] 6720 (BEAKER) (test code = [place] 1538) [address] CALCIUM, [id number] 18:02:00 Test Item Value Reference Range Interpretation Comments CALCIUM IONIZED (BEAKER) (test 1.01 mmol/L 1.12-1.27 L code = 698) PH, BLOOD (BEAKER) (test code = 7.38 1810) BLOOD GAS, [id number] 18:02:00 Test Item Value Reference Range Interpretation Comments PH ARTERIAL (BEAKER) (test code = 7.38 7.35-7.45 383) PCO2 ARTERIAL (BEAKER) (test code 39 mmHg 35-45 = 384) PO2 ARTERIAL (BEAKER) (test code 190 mmHg 80-90 H = 385) O2 SATURATION ARTERIAL (BEAKER) 99.3 % 96.0-97.0 H (test code = 386) HCO3 ARTERIAL (BEAKER) (test code 23 mmol/L 21-29 = 388) BASE EXCESS ARTERIAL (BEAKER) -2.4 mmol/L -2.0-3.0 L (test code = 387) PATIENT TEMPERATURE (BEAKER) 37.0 C (test code = 1818) POTASSIUM-STAT [id number] 18:02:00 Test Item Value Reference Range Interpretation Comments POTASSIUM (BEAKER) (test code = 3.2 meq/L 3.6-5.5 L 379) GLUCOSE-STAT [id number] 18:02:00 Test Item Value Reference Range Interpretation Comments GLUCOSE RANDOM (BEAKER) (test code 164 mg/dL 70-110 H = 652) HGB/HCT (H&H) - STAT [id number] 18:02:00 Test Item Value Reference Range Interpretation Comments HEMOGLOBIN (BEAKER) (test code = 9.6 g/dL 13.0-16.8 L 410) HEMATOCRIT (BEAKER) (test code = 28.0 % 40.0-50.0 L 411) SODIUM NA-STAT [id number] 18:01:00 Test Item Value Reference Range Interpretation Comments SODIUM (BEAKER) (test code = 381) 136 meq/L 135-148 CALCIUM, [id number] 15:06:00 Test Item Value Reference Range Interpretation Comments CALCIUM IONIZED (BEAKER) (test 1.08 mmol/L 1.12-1.27 L code = 698) PH, BLOOD (BEAKER) (test code = 7.46 3720) BLOOD GAS, [id number] 15:06:00 Test Item Value Reference Range Interpretation Comments PH ARTERIAL (BEAKER) (test code = 7.46 7.35-7.45 H 383) PCO2 ARTERIAL (BEAKER) (test code 36 mmHg 35-45 = 384) PO2 ARTERIAL (BEAKER) (test code = 236 mmHg 80-90 H 385) O2 SATURATION ARTERIAL (BEAKER) 99.6 % 96.0-97.0 H (test code = 386) HCO3 ARTERIAL (BEAKER) (test code 25 mmol/L 21-29 = 388) BASE EXCESS ARTERIAL (BEAKER) 1.1 mmol/L -2.0-3.0 (test code = 387) PATIENT TEMPERATURE (BEAKER) (test 37.0 C code = 1818) GLUCOSE-STAT [id number] 15:06:00 Test Item Value Reference Range Interpretation Comments GLUCOSE RANDOM (BEAKER) (test code 117 mg/dL 70-110 H = 652) HGB/HCT (H&H) - STAT [id number] 15:06:00 Test Item Value Reference Range Interpretation Comments HEMOGLOBIN (BEAKER) (test code = 10.9 g/dL 13.0-16.8 L 410) HEMATOCRIT (BEAKER) (test code = 32.0 % 40.0-50.0 L 411) SODIUM NA-STAT [id number] 15:05:00 Test Item Value Reference Range Interpretation Comments SODIUM (BEAKER) (test code = 381) 139 meq/L 135-148 POTASSIUM-STAT [id number] 15:05:00 Test Item Value Reference Range Interpretation Comments POTASSIUM (BEAKER) (test code = 3.6 meq/L 3.6-5.5 379) [id number] 12:05:00 Test Item Value Reference Range Interpretation Comments SODIUM (BEAKER) (test 139 meq/L 136-145 code = 381) POTASSIUM (BEAKER) 4.3 meq/L 3.5-5.1 Specimen slightly (test code = 379) hemolyzed CHLORIDE (BEAKER) 104 meq/L 98-107 (test code = 382) CO2 (BEAKER) (test 25 meq/L 22-29 code = 355) BUN AND [id number] 12:05:00 Test Item Value Reference Range Interpretation Comments BLOOD UREA NITROGEN 10 mg/dL 7-21 (BEAKER) (test code = 354) CREATININE (BEAKER) 0.80 mg/dL 0.57-1.25 Specimen slightly (test code = 358) hemolyzed EGFR (BEAKER) (test 121 mL/min/1.73 ESTIM ATED GFR IS code = 1092) sq m NOT ACCURATE CREATININE CLEARANCE IN PREDICTING GLOMERULAR FILTRATION RATE . ESTIMATED GFR I S NOT APPLICABLE FOR DIALYSIS PATIEN TS. [id number] 11:46:00 Test Item Value Reference Range Interpretation Comments HEMOGLOBIN (BEAKER) (test code = 11.5 GM/DL 13.7-17.5 L 410) POCT-GLUCOSE [id number] 11:19:00 Test Item Value Reference Range Interpretation Comments POC-GLUCOSE METER 133 mg/dL 70-110 H TESTED AT [facility] 6720 (BEAKER) (test code = [facility] Melgo[facility] 1538) [address] POCT-GLUCOSE [id number] 14:25:00 Test Item Value Reference Range Interpretation Comments POC-GLUCOSE METER 366 mg/dL 70-110 H Baby teste d Mother ID (BEAKER) (test code = used/T ESTED AT [facility] 1538) [address] [place] [address] POCT-GLUCOSE [id number] 07:42:00 Test Item Value Reference Range Interpretation Comments POC-GLUCOSE METER 237 mg/dL 70-110 H TESTED AT [facility] 6720 (BEAKER) (test code = ELI[facility] Melgoza [facility] 1538) [address] BASIC METABOLIC [id number] 05:07:00 Test Item Value Reference Range Interpretation Comments SODIUM (BEAKER) 140 meq/L 136-145 (test code = 381) POTASSIUM (BEAKER) 3.8 meq/L 3.5-5.1 (test code = 379) CHLORIDE (BEAKER) 105 meq/L 98-107 (test code = 382) CO2 (BEAKER) (test 27 meq/L 22-29 code = 355) BLOOD UREA NITROGEN 6 mg/dL 7-21 L (BEAKER) (test code = 354) CREATININE (BEAKER) 0.74 mg/dL 0.57-1.25 (test code = 358) GLUCOSE RANDOM 192 mg/dL 70-105 H (BEAKER) (test code = 652) CALCIUM (BEAKER) 9.1 mg/dL 8.4-10.2 (test code = 697) EGFR (BEAKER) (test 133 mL/min/1.73 ESTIM ATED GFR IS code = 1092) sq m NOT ACCURATE CREATININE CLEARANCE IN PREDICTING GLOMERULAR FILTRATION RATE . ESTIMATED GFR I S NOT APPLICABLE FOR DIALYSIS PATIEN TS. CBC (HEMOGRAM ONLY)[id number] 04:40:00 Test Item Value Reference Range Interpretation Comments WHITE BLOOD CELL COUNT (BEAKER) 8.4 K/ L 3.5-10.5 (test code = 775) RED BLOOD CELL COUNT (BEAKER) 2.97 M/ L 4.63-6.08 L (test code = 761) HEMOGLOBIN (BEAKER) (test code = 8.4 GM/DL 13.7-17.5 L 410) HEMATOCRIT (BEAKER) (test code = 27.4 % 40.1-51.0 L 411) MEAN CORPUSCULAR VOLUME ([facility]) 92.3 fL 79.0-92.2 H (test code = 753) MEAN CORPUSCULAR HEMOGLOBIN 28.3 pg 25.7-32.2 ([facility]) (test code = 751) MEAN CORPUSCULAR HEMOGLOBIN CONC 30.7 GM/DL 32.3-36.5 L ([facility]) (test code = 752) RED CELL DISTRIBUTION WIDTH 14.4 % 11.6-14.4 ([facility]) (test code = 412) PLATELET COUNT ([facility]) (test 347 K/CU MM 150-450 code = 756) MEAN PLATELET VOLUME ([facility]) 10.7 fL 9.4-12.4 (test code = 754) NUCLEATED RED BLOOD CELLS 0 /100 WBC 0-0 ([facility]) (test code = 413) POCT-GLUCOSE [id number] 22:48:00 Test Item Value Reference Range Interpretation Comments POC-GLUCOSE METER 166 mg/dL 70-110 H TESTED AT [place] [address] ([facility]) (test code = [place] [place] 1538) [address] [id number] 21:21:00 Test Item Value Reference Range Interpretation Comments ACTIVATED CLOTTING TIME 268 sec TEST ED AT [place] [address] ([facility]) (test code = [facility] [place] 441) [address] POCT-GLUCOSE [id number] 17:32:00 Test Item Value Reference Range Interpretation Comments POC-GLUCOSE METER 164 mg/dL 70-110 H TESTED AT [place] [address] ([facility]) (test code = [place] 1538) [address] POCT-GLUCOSE [id number] 12:02:00 Test Item Value Reference Range Interpretation Comments POC-GLUCOSE METER 220 mg/dL 70-110 H TESTED AT [place] [address] ([facility]) (test code = [place] 1538) [id number] POCT-GLUCOSE [id number] 08:11:00 Test Item Value Reference Range Interpretation Comments POC-GLUCOSE METER 228 mg/dL 70-110 H TESTED AT [place] [address] ([facility]) (test code = [place] 1538) [id number] LACTATE DEHYDROGENASE (LDH)2018-07-15 06:51:00 Test Item Value Reference Range Interpretation Comments LACTATE DEHYDROGENASE (BEAKER) (test 262 U/L 125-220 H code = 635) POCT-GLUCOSE [id number] 06:06:00 Test Item Value Reference Range Interpretation Comments POC-GLUCOSE METER 186 mg/dL 70-110 H TESTED AT [facility] 67[facility] ([facility]) (test code = ELIAS Melgoza [facility] 1538) [id number] BLOOD [id number] 05:01:00 Test Item Value Reference Range Interpretation Comments CULTURE (BEAKER) (test No growth in 5 days code = 1095) BLOOD [id number] 05:01:00 Test Item Value Reference Range Interpretation Comments CULTURE (BEAKER) (test No growth in 5 days code = 1095) POCT-GLUCOSE [id number] 21:38:00 Test Item Value Reference Range Interpretation Comments POC-GLUCOSE METER 267 mg/dL 70-110 H TESTED AT [place] [id number] ([facility]) (test code = ELIAS Melgoza [facility] 1538) [id number] POCT-GLUCOSE [id number] 17:28:00 Test Item Value Reference Range Interpretation Comments POC-GLUCOSE METER 405 mg/dL 70-110 HH Notified R Damián PRICE/TESTED ([facility]) (test code = AT [facility] [address] [place] [address] 1538) [facility] 7703 0 PET, CARDIAC PERFUSION MULTIPLE STUDIES, REST AND [id number] 12:29:00 Reason for exam:->preoperative risk stratficationFINAL REPORT PROCEDURE: Rest/Stress MYOCARDIAL PERFUSION PET with regadenos on\\XA9\\ CPT CODE: 28532 INDICATION: Preoperative risk stratification for renal mass removal HISTORY: Cardiac risk factors: Diabetes, hypertension, stroke. Other cardiovascular history: No reported CAD. Recent cardiac symptoms: None. Current cardiovascular-related medications: A spirin, atorvastatin, carvedilol. PROTOCOL: Limited low-dose CT imaging was performed for attenuation correction. 40.0 mCi of Rb-82 chloride was injected iv at rest, and gated PET (positron emission tomography) images were obtained. Subsequently, 40.0 mCi of Rb-82 chloride was injected iv at expected peak pharmacologic effect, and gated PET images were obtained. PRELIMINARY STRESS TEST DATA FROM NONINVASIVE CARDIOLOGY: Pharmacologic stress was by 10- second iv infusion of 0.4 mg of regadenoson. Radiotracer was injected 30 seconds after start of stress. Heart rate was 90 beats/min at rest [id number] beats/min (66% of MPHR) at tracer injection. BP was 145/74 mmHg at rest and 161/82 mmHg at tracer injection. Stress was stopped for predetermined endpoint. The patient experienced no symptoms; treatment was not required. Preliminary ECG evaluation revealed sinus rhythm at rest and no ischemic changes with stress. (Final ECG interpretation and other stress and monitoring data are reported separately by Cardiology.) IMAGING FINDINGS: Study quality is good. Images obtained after stress injection show a moderate perfusion abnormality of the basal-mid inferoseptal segments. Resting images show normal myocardial perfusion. LV volume appears increased. RV volume appears increased. Gated images obtained immediately after stress show mildly hypokinetic LV wall motion. Gated images obtained at restshow mildly hypokinetic LV wall motion. LVEF at rest is 48%. LVEF at stress is 51%. IMPRESSION: 1.Abnormal study. 2. Appropriate pharmacologic stress. 3. Abnormal myocardial perfusion. There is amoderate severity, small size, reversible, perfusion defect in the inferoseptal LV. 4. Mildly decreased resting LV function. No deterioration of function is noted with pharmacologic stress. 5. Extracardiac tracer distribution is normal. 6. No previous [facility] study for comparison. Signed: Toya Spangler Verified Date/Time: 07/14/2018 12:29:37 Reading Location: [address] POCT-GLUCOSE [id number] 11:42:00 Test Item Value Reference Range Interpretation Comments POC-GLUCOSE METER 166 mg/dL 70-110 H TESTED AT [facility] 6720 ([facility]) (test code = ELI[facility] Melgoza [facility] 1538) [id number] CBC W/PLT COUNT & AUTO [id number] 08:21:00 Test Item Value Reference Range Interpretation Comments WHITE BLOOD CELL COUNT ([facility]) 8.8 K/ L 3.5-10.5 (test code = 775) RED BLOOD CELL COUNT ([facility]) 3.05 M/ L 4.63-6.08 L (test code = 761) HEMOGLOBIN ([facility]) (test code = 8.6 GM/DL 13.7-17.5 L 410) HEMATOCRIT (BEAKER) (test code = 27.4 % 40.1-51.0 L 411) MEAN CORPUSCULAR VOLUME (BEAKER) 89.8 fL 79.0-92.2 (test code = 753) MEAN CORPUSCULAR HEMOGLOBIN 28.2 pg 25.7-32.2 (BEAKER) (test code = 751) MEAN CORPUSCULAR HEMOGLOBIN CONC 31.4 GM/DL 32.3-36.5 L (BEAKER) (test code = 752) RED CELL DISTRIBUTION WIDTH 13.9 % 11.6-14.4 (BEAKER) (test code = 412) PLATELET COUNT (BEAKER) (test 281 K/CU MM 150-450 code = 756) MEAN PLATELET VOLUME (BEAKER) 11.0 fL 9.4-12.4 (test code = 754) NUCLEATED RED BLOOD CELLS 0 /100 WBC 0-0 (BEAKER) (test code = 413) (CELLAVISION MANUAL DIFF)2018-07-14 08:21:00 Test Item Value Reference Range Interpretation Comments NEUTROPHILS - REL 69 % (CELLAVISION)(BEAKER) (test code = 2816) LYMPHOCYTES - REL 13 % (CELLAVISION)(BEAKER) (test code = 2817) MONOCYTES - REL 8 % (CELLAVISION)(BEAKER) (test code = 2818) EOSINOPHILS - REL 1 % (CELLAVISION)(BEAKER) (test code = 2819) BASOPHILS - REL 1 % (CELLAVISION)(BEAKER) (test code = 2820) METAMYELOCYTES - REL 3 % 0-0 H (CELLAVISION)(BEAKER) (test code = 2821) MYELOCYTES - REL 2 % 0-0 H (CELLAVISION)(BEAKER) (test code = 2822) BANDS - REL (CELLAVISION)(BEAKER) 3 % 0-10 (test code = 2826) NEUTROPHILS - ABS 6.07 K/ul 1.78-5.38 H (CELLAVISION)(BEAKER) (test code = 2830) LYMPHOCYTES - ABS 1.14 K/ul 1.32-3.57 L (CELLAVISION)(BEAKER) (test code = 2831) MONOCYTES - ABS 0.70 K/uL 0.30-0.82 (CELLAVISION)(BEAKER) (test code = 2832) EOSINOPHILS - ABS 0.09 K/uL 0.04-0.54 (CELLAVISION)(BEAKER) (test code = 2834) BASOPHILS - ABS 0.09 K/uL 0.01-0.08 H (CELLAVISION)(BEAKER) (test code = 2835) METAMYELOCYTES - ABS 0.26 K/uL 0.00-0.00 H (CELLAVISION)(BEAKER) (test code = 2836) MYELOCYTES-ABS 0.18 K/uL 0.00-0.00 H (CELLAVISION)(BEAKER) (test code = 2837) BANDS - ABS (CELLAVISION)(BEAKER) 0.26 K/uL 0.00-0.80 (test code = 2840) TOTAL COUNTED (BEAKER) (test code = 100 1351) WBC MORPHOLOGY (BEAKER) (test code Normal = 487) PLT MORPHOLOGY (BEAKER) (test code Normal = 486) POLYCHROMATOPHILLIC RBCS(BEAKER) 1+ few (test code = 478) ANISOCYTOSIS (BEAKER) (test code = 1+ few 961) MICROCYTES (BEAKER) (test code = 1+ few 965) ARTIFACT (CELLAVISION)(BEAKER) Present (test code = 3432) PLATELET CONCENTRATION Adequate (CELLAVISION)(BEAKER) (test code = 3438) Received comment: User comments: Slide comments:POCT-GLUCOSE [id number] 21:26:00 Test Item Value Reference Range Interpretation Comments POC-GLUCOSE METER 279 mg/dL 70-110 H TESTED AT [facility] 6720 (BEAKER) (test code = ELIAS Melgoza [place] 1538) [id number] MR, ABDOMEN, [id number] 19:30:00FINAL REPORT MRI of the abdomen. CLINICAL HISTORY: Abd mass, palpable, non-pulsatile. COMPARISON STUDY: CT scan dated July 12, 2018. Technique: Multiplanar, multisequence imaging of the abdomen was acquired both pre and post administration of intravenous gadolinium in a dynamic fashion. No oral contrast was administered. FINDINGS: Trace pleural effusions are seen. The liverdemonstrates a noncirrhotic morphology. Significant respiratory motion artifact limits the postcontrast images. There is an 8 mm increased T2-weighted lesion in the left hepatic dome which appears to fill with contrast on the delayed phase and likely represents a small hemangioma. The portal vein appears patent measuring 1.1 cm. The spleen, pancreas and adrenal glands are unremarkable. As seen on CT scan there is a 5.0 x 3.7 cm mass in the lower pole of the right kidney which demonstrates postcontrast enhancement and is suspicious for renal cell carcinoma. Within the left kidney, as noted on CT scan there are vague wedge-shaped areas of increased T2-weighted signal and mild heterogeneous enhancement although the appearance is less pronounced. No ascites is seen. There is no suspicious adenopathy.The aorta is normal in caliber. The visualized osseous structures demonstrate degenerative changes. IMPRESSION:1. Hepatic hemangioma.2. Enhancing mass in the right kidney highly suspicious for renal cell carcinoma.3. Study is significantly limited by extensive respiratory artifact.4. Trace pleural effusions.5. Heterogeneous areas of enhancement in the left kidney which are less pronounced than on CT scan. The differential remains unchanged and is most likely reflective of pyelonephritis or evolving infarcts. Clinical correlation is recommended. Follow-up imaging is needed to exclude other etiologies such as masses. Signed: Eleno Hutton Verified Date/Time: 07/13/2018 19:30:45 Reading Location: [address] Consult Reading Room Electronically signed by: ELENO HUTTON M.D. on 07/03 07:30 PMPOCT-GLUCOSE [id number] 16:36:00 Test Item Value Reference Range Interpretation Comments POC-GLUCOSE METER 260 mg/dL 70-110 H TESTED AT [facility] 67 ([facility]) (test code = [facility] Melgo[facility] 1538) [id number] POCT-GLUCOSE [id number] 12:41:00 Test Item Value Reference Range Interpretation Comments POC-GLUCOSE METER 284 mg/dL 70-110 H TESTED AT [facility] 6720 ([facility]) (test code = [facility] Melgo[facility] 1538) [id number] POCT-GLUCOSE [id number] 08:34:00 Test Item Value Reference Range Interpretation Comments POC-GLUCOSE METER 196 mg/dL 70-110 H TESTED AT [facility] 6720 ([facility]) (test code = [facility] Melgo[facility] 1538) [id number] POCT-GLUCOSE [id number] 21:17:00 Test Item Value Reference Range Interpretation Comments POC-GLUCOSE METER 323 mg/dL 70-110 H Patient on insulin (ANJALI) (test code = Drip/T ESTED AT [facility] 1538) [address] [place] [address] POCT-GLUCOSE [id number] 17:51:00 Test Item Value Reference Range Interpretation Comments POC-GLUCOSE METER 256 mg/dL 70-110 H TESTED AT [facility] 6720 [facility] (test code = [facility] Melgoza [facility] 1538) [id number] CT, [id number] 16:00:00FINAL REPORT CT scan of the abdomen and pelvis. HISTORY: Renal cancer staging. COMPARISON STUDY: CT scan of the chest dated July 11, 2018. TECHNIQUE: Contiguous helical sliceswere acquired through the abdomen both pre and post ministration of intravenous contrast and throughthe pelvis post intravenous contrast. No oral contrast was administered. This exam was performed according to our department dose optimization program which includes automated exposure control, adjustment of the mA and/or kV according to the patient's size and/or use of iterative reconstruction technique. FINDINGS: A 2 mm nodule is seen in the right lower lobe on image five. Atelectatic changes are seen in the lung bases with trace effusions. The liver, spleen, pancreas and adrenal glands are unremarkable. A 5.3 x 5.4 cm enhancing mass is seen in the lower pole of the right kidney extending to the interpolar region, highly suspicious for renal cell carcinoma. Within the left kidney are multiple wedge-shaped hypoattenuating regions measuring up to 1 cm, possibly areas of focal pyelonephritis or infarcts. There are no dilated loops of bowel seen to suggest obstruction. A normal appendix is seen. Mild diffuse anasarca is seen. The prostate gland is enlarged measuring 5.4 x 5.9 cm in maximal transverse diameter. The aorta is normal in caliber. Atherosclerosis is seen. No suspicious adenopathy is noted. Some stranding is noted in the retroperitoneum. The appendix has been resected. Bone windows dem onstrate degenerative changes. Some atrophic changes are seen in the left gluteal muscle group. Impression:1. Large enhancing right renal mass highly suspicious for renal cell carcinoma.2. Diffuse third spacing with trace effusions and anasarca.3. Indeterminate hypoattenuating lesions in the left kidney with multiple wedge-shaped regions identified, possibly related to pyelonephritis or infarcts. Clinical correlation is recommended. Follow-up imaging is recommended to exclude masses.4. No evidence of distal metastatic disease.5. Enlarged prostate gland.6. Tiny nodule in the right lower lobe. Signed: Eleno Hutton Verified Date/Time: 07/12/2018 16:00:46 Reading Location: [facility] C013X Ortho Consult Reading Room U/S, [id number] 14:52:00Reason for exam:->re-evaluate prostatic abscesShould this be performed at the bedside?->NoFINAL REPORT Prostate ultrasound, 07/12/2018. Comparison: 07/09/2018. Discussion: Sonographic evaluation of the prostate was performed. Capsule appears intact. The prostate measures 5 x 3.5 x 5.3 cm and has a mildly heterogeneous echotexture, with several calcifications again noted. There is no focal mass or focal fluid collection. On color Doppler evaluation, there is symmetric blood flow throughout. Seminal vesicles are visualized. Impression: No prostatic fluid collection is identified Signed: Rigoberto Pierson Verified Date/Time: 07/12/2018 14:52:29 Reading Location: [facility] P006J Ultrasound Reading Room CT, CHEST, WITH [id number] 14:22:00Addendum BeginsREPORT STATUS:A There is a hyperenhancing focus in segment II which measures 1 cm on axial image 38. This was discussed with Dr. Bueno on 07/12/2018 at 2:21 PM. Sign ed: Diomedes Stewart Verified Date/Time: 07/12/2018 14:22:13 Reading Location: [facility] C013Y CT Body Reading RoomAddendum EndsFINAL REPORT TECHNIQUE: CT scan of the chest WITHintravenous contrast. Dose modulation, iterative reconstruction, and/or weight-based adjustment of the mA/kV was utilized to reduce the radiation dose to as low as reasonably achievable. INDICATION: Renal cell carcinoma staging. COMPARISON: None. FINDINGS: LINES/TUBES: None. LUNGS AND AIRWAYS: A pleural-based nodule in the right upper lobe on image 18 measures 9 mm. An additional right upper lobe pu lmonary nodule measures 3 mm on coronal image 69. Bibasilar subsegmental atelectasis. PLEURA: Trace bilateral pleural effusions. HEART AND MEDIASTINUM: The visualized thyroid gland is normal. No significant mediastinal, hilar, or axillary lymphadenopathy. The left atrium is mildly enlarged. Severe coronary arterial calcifications SOFT TISSUES AND BONES: Moderate degenerative changes of the left glenohumeral joint. UPPER ABDOMEN: There is an irregularly-shaped hypodensity in the cortex of the left upper pole. IMPRESSION: 1.A pleural-based nodule in the right upper lobe measures 9 mm and is indeterminate. This could be a subpleural lymph node or a metastasis. Close attention on follow-up imaging is recommended. 2.An indeterminate hypodensity in the cortex of the left upper pole with more central hypoattenuation. This is from an indeterminate cause but could be due to pyelonephritis. If prior outside hospital imaging is available for comparison, this would be helpful. Signed: Diomedes Stewart Verified Date/Time: 07/11/2018 09:17:12 Reading Location: [address] Body Reading Room -GLUCOSE [id number] 14:01:00 Test Item Value Reference Range Interpretation Comments POC-GLUCOSE METER 246 mg/dL 70-110 H TESTED AT [place] [address] ([facility]) (test code = ELI[facility] Melgoza [facility] 1538) [id number] POCT-GLUCOSE [id number] 20:43:00 Test Item Value Reference Range Interpretation Comments POC-GLUCOSE METER 277 mg/dL 70-110 H TESTED AT [place] [address] ([facility]) (test code = [facility] Melgo[facility] 1538) [address] POCT-GLUCOSE [id number] 17:05:00 Test Item Value Reference Range Interpretation Comments POC-GLUCOSE METER 283 mg/dL 70-110 H TESTED AT [place] [address] (BEAKER) (test code = [facility] Melgo[facility] 1538) [address] POCT-GLUCOSE [id number] 11:30:00 Test Item Value Reference Range Interpretation Comments POC-GLUCOSE METER 253 mg/dL 70-110 H TESTED AT [place] [address] (BEAKER) (test code = [facility] Melgo[facility] 1538) [address] POCT-GLUCOSE [id number] 07:49:00 Test Item Value Reference Range Interpretation Comments POC-GLUCOSE METER 209 mg/dL 70-110 H TESTED AT [place] [address] (BEAKER) (test code = [facility] Melgo[facility] 1538) [address] POCT-GLUCOSE [id number] 21:13:00 Test Item Value Reference Range Interpretation Comments POC-GLUCOSE METER 243 mg/dL 70-110 H TESTED AT [place] [address] (BEAKER) (test code = [facility] 1538) [address] URINE [id number] 15:31:00 Test Item Value Reference Range Interpretation Comments CULTURE (BEAKER) (test code = 1095) No growth POCT-GLUCOSE [id number] 12:17:00 Test Item Value Reference Range Interpretation Comments POC-GLUCOSE METER 283 mg/dL 70-110 H TESTED AT [place] [address] (BEAKER) (test code = [facility] 1538) [address] BASIC METABOLIC [id number] 08:34:00 Test Item Value Reference Range Interpretation Comments SODIUM (BEAKER) 136 meq/L 136-145 (test code = 381) POTASSIUM (BEAKER) 3.6 meq/L 3.5-5.1 (test code = 379) CHLORIDE (BEAKER) 105 meq/L 98-107 (test code = 382) CO2 (BEAKER) (test 22 meq/L 22-29 code = 355) BLOOD UREA NITROGEN 7 mg/dL 7-21 (BEAKER) (test code = 354) CREATININE (BEAKER) 0.73 mg/dL 0.57-1.25 (test code = 358) GLUCOSE RANDOM 164 mg/dL 70-105 H (BEAKER) (test code = 652) CALCIUM (BEAKER) 8.6 mg/dL 8.4-10.2 (test code = 697) EGFR (BEAKER) (test 135 mL/min/1.73 ESTIM ATED GFR IS code = 1092) sq m NOT ACCURATE CREATININE CLEARANCE IN PREDICTING GLOMERULAR FILTRATION RATE . ESTIMATED GFR I S NOT APPLICABLE FOR DIALYSIS PATIEN TS. CBC (HEMOGRAM ONLY)2018-07-10 08:15:00 Test Item Value Reference Range Interpretation Comments WHITE BLOOD CELL COUNT (BEAKER) 10.3 K/ L 3.5-10.5 (test code = 775) RED BLOOD CELL COUNT (BEAKER) 3.37 M/ L 4.63-6.08 L (test code = 761) HEMOGLOBIN (BEAKER) (test code = 9.8 GM/DL 13.7-17.5 L 410) HEMATOCRIT (BEAKER) (test code = 30.3 % 40.1-51.0 L 411) MEAN CORPUSCULAR VOLUME (BEAKER) 89.9 fL 79.0-92.2 (test code = 753) MEAN CORPUSCULAR HEMOGLOBIN 29.1 pg 25.7-32.2 (BEAKER) (test code = 751) MEAN CORPUSCULAR HEMOGLOBIN CONC 32.3 GM/DL 32.3-36.5 (BEAKER) (test code = 752) RED CELL DISTRIBUTION WIDTH 13.0 % 11.6-14.4 (BEAKER) (test code = 412) PLATELET COUNT (BEAKER) (test 162 K/CU MM 150-450 code = 756) MEAN PLATELET VOLUME (BEAKER) 10.8 fL 9.4-12.4 (test code = 754) NUCLEATED RED BLOOD CELLS 0 /100 WBC 0-0 (BEAKER) (test code = 413) POCT-GLUCOSE [id number] 08:04:00 Test Item Value Reference Range Interpretation Comments POC-GLUCOSE METER 202 mg/dL 70-110 H TESTED AT [facility] 6720 ([facility]) (test code = [place] 1538) [id number] POCT-GLUCOSE [id number] 21:17:00 Test Item Value Reference Range Interpretation Comments POC-GLUCOSE METER 265 mg/dL 70-110 H TESTED AT [facility] 6720 ([facility]) (test code = [facility] [place] 1538) [address] U/S, [id number] 18:00:00Please evaluate via TRUS for prostatic abscess/drainable fluid collectionsReason for exam:->suspect prostatic abscessShould this be performed at the bedside?->NoFINAL REPORT ULTRASOUND PROSTATE CLINICAL HISTORY: Prostatic abscess COMPARISON: None TECHNIQUE/FINDINGS:Transrectal sonographic images were obtained of the prostate. The prostate measures 4.2 x 3.1 x 5.6 cm. Shadowing calcification noted within the prostate. No organized fluid collections are identified to suggest abscess formation. Impression: No organized/drainable fluid collection identified. Signed: Hay Dodge Verified Date/Time: 07/09/2018 18:00:47 Reading Location: [address] Ultrasound Reading Room POCT-GLUCOSE [id number] 16:49:00 Test Item Value Reference Range Interpretation Comments POC-GLUCOSE METER 170 mg/dL 70-110 H TESTED AT [place] [address] ([facility]) (test code = [facility]go[facility] 1538) [id number] POCT-GLUCOSE [id number] 11:38:00 Test Item Value Reference Range Interpretation Comments POC-GLUCOSE METER 246 mg/dL 70-110 H TESTED AT [place] [address] ([facility]) (test code = [facility] 1538) [address] PROTHROMBIN [id number] 11:07:00 Test Item Value Reference Range Interpretation Comments PROTIME ([facility]) (test code = 15.7 seconds 11.7-14.7 H 759) INR ([facility]) (test code = 370) 1.3 <=5.9 RECOMMENDED COUMADIN/WARFARIN INR THERAPY RANGESSTANDARD DOSE: 2.0 - 3.0 Includes: PROPHYLAXIS forvenous thrombosis, systemic embolization; TREATMENT for venous thrombosis and/or pulmonary embolus.HIGH RISK: Target INR is 2.5-3.5 for patients with mechanical heart valves.HEMOGLOBIN [id number] 08:45:00 Test Item Value Reference Range Interpretation Comments HEMOGLOBIN A1C ([facility]) (test code = 5.5 % 4.3-6.1 368) POCT-GLUCOSE [id number] 08:18:00 Test Item Value Reference Range Interpretation Comments POC-GLUCOSE METER 210 mg/dL 70-110 H TESTED AT [facility] 6720 (BEAKER) (test code = [place] 1538) [address] URINALYSIS W/ [id number] 06:28:00 Test Item Value Reference Range Interpretation Comments COLOR (BEAKER) (test code = Yellow 470) CLARITY (BEAKER) (test code = Clear 469) SPECIFIC GRAVITY UA (BEAKER) 1.011 1.001-1.035 (test code = 468) PH UA (BEAKER) (test code = 5.5 5.0-8.0 467) PROTEIN UA (BEAKER) (test code 20 mg/dL Negative A = 464) GLUCOSE UA (BEAKER) (test code 70 mg/dL Negative A = 365) KETONES UA (BEAKER) (test code 10 mg/dL Negative A = 371) BILIRUBIN UA (BEAKER) (test Negative Negative code = 462) BLOOD UA (BEAKER) (test code = Small Negative A 461) NITRITE UA (BEAKER) (test code Negative Negative = 465) LEUKOCYTE ESTERASE UA (BEAKER) Small Negative A (test code = 466) UROBILINOGEN UA (BEAKER) (test 2.0 mg/dL 0.2-1.0 H code = 463) RBC UA (BEAKER) (test code = < /HPF 519) WBC UA (BEAKER) (test code = 13 /HPF 520) BACTERIA (BEAKER) (test code = Rare 517) MUCUS (BEAKER) (test code = Rare 1574) SQUAMOUS EPITHELIAL (BEAKER) < /HPF (test code = 516) SOURCE(BEAKER) (test code = Urine, Voided 3911) HEPATIC FUNCTION [id number] 03:40:00 Test Item Value Reference Range Interpretation Comments TOTAL PROTEIN (BEAKER) (test code = 6.2 gm/dL 6.0-8.3 770) ALBUMIN (BEAKER) (test code = 1145) 2.9 g/dL 3.5-5.0 L BILIRUBIN TOTAL (BEAKER) (test code 1.6 mg/dL 0.2-1.2 H = 377) BILIRUBIN DIRECT (BEAKER) (test 0.8 mg/dL 0.1-0.5 H code = 706) ALKALINE PHOSPHATASE (BEAKER) (test 77 U/L 40-150 code = 346) AST (SGOT) (BEAKER) (test code = 51 U/L 5-34 H 353) ALT (SGPT) (BEAKER) (test code = 49 U/L 6-55 347) BASIC METABOLIC [id number] 03:40:00 Test Item Value Reference Range Interpretation Comments SODIUM (BEAKER) 138 meq/L 136-145 (test code = 381) POTASSIUM (BEAKER) 3.7 meq/L 3.5-5.1 (test code = 379) CHLORIDE (BEAKER) 108 meq/L 98-107 H (test code = 382) CO2 (BEAKER) (test 22 meq/L 22-29 code = 355) BLOOD UREA NITROGEN 9 mg/dL 7-21 (BEAKER) (test code = 354) CREATININE (BEAKER) 0.80 mg/dL 0.57-1.25 (test code = 358) GLUCOSE RANDOM 177 mg/dL 70-105 H (BEAKER) (test code = 652) CALCIUM (BEAKER) 8.2 mg/dL 8.4-10.2 L (test code = 697) EGFR (BEAKER) (test 122 mL/min/1.73 ESTIM ATED GFR IS code = 1092) sq m NOT ACCURATE CREATININE CLEARANCE IN PREDICTING GLOMERULAR FILTRATION RATE . ESTIMATED GFR I S NOT APPLICABLE FOR DIALYSIS PATIEN TS. CBC W/PLT COUNT & AUTO [id number] 03:20:00 Test Item Value Reference Range Interpretation Comments WHITE BLOOD CELL COUNT (BEAKER) 12.8 K/ L 3.5-10.5 H (test code = 775) RED BLOOD CELL COUNT (BEAKER) 3.06 M/ L 4.63-6.08 L (test code = 761) HEMOGLOBIN (BEAKER) (test code = 8.7 GM/DL 13.7-17.5 L 410) HEMATOCRIT (BEAKER) (test code = 27.6 % 40.1-51.0 L 411) MEAN CORPUSCULAR VOLUME (BEAKER) 90.2 fL 79.0-92.2 (test code = 753) MEAN CORPUSCULAR HEMOGLOBIN 28.4 pg 25.7-32.2 (BEAKER) (test code = 751) MEAN CORPUSCULAR HEMOGLOBIN CONC 31.5 GM/DL 32.3-36.5 L (BEAKER) (test code = 752) RED CELL DISTRIBUTION WIDTH 12.8 % 11.6-14.4 (BEAKER) (test code = 412) PLATELET COUNT (BEAKER) (test 157 K/CU MM 150-450 code = 756) MEAN PLATELET VOLUME (BEAKER) 10.6 fL 9.4-12.4 (test code = 754) NUCLEATED RED BLOOD CELLS 0 /100 WBC 0-0 (BEAKER) (test code = 413) NEUTROPHILS RELATIVE PERCENT 90 % (BEAKER) (test code = 429) LYMPHOCYTES RELATIVE PERCENT 5 % (BEAKER) (test code = 430) MONOCYTES RELATIVE PERCENT 5 % (BEAKER) (test code = 431) EOSINOPHILS RELATIVE PERCENT 0 % (BEAKER) (test code = 432) BASOPHILS RELATIVE PERCENT 0 % (BEAKER) (test code = 437) NEUTROPHILS ABSOLUTE COUNT 11.41 K/ L 1.78-5.38 H (BEAKER) (test code = 670) LYMPHOCYTES ABSOLUTE COUNT 0.58 K/ L 1.32-3.57 L (BEAKER) (test code = 414) MONOCYTES ABSOLUTE COUNT (BEAKER) 0.66 K/ L 0.30-0.82 (test code = 415) EOSINOPHILS ABSOLUTE COUNT 0.00 K/ L 0.04-0.54 L (BEAKER) (test code = 416) BASOPHILS ABSOLUTE COUNT (BEAKER) 0.02 K/ L 0.01-0.08 (test code = 417) IMMATURE GRANULOCYTES-RELATIVE 1 % 0-1 PERCENT (BEAKER) (test code = 2807) POCT-GLUCOSE [id number] 01:26:00 Test Item Value Reference Range Interpretation Comments POC-GLUCOSE METER 202 mg/dL 70-110 H TESTED AT [facility] 6720 (BEAKER) (test code = [facility] [place] 1538) [address]
--- NOTE | 2021-03-18 19:45 | ER ---
Nurse's Notes [facility] Name: Froy Hatfield Age: 60 yrs Sex: Male : 1960 Arrival Date: 03/18/2021 Time: 13:45 Bed Waiting Private MD: Diagnosis: Presentation: 03/18 14:45 Chief complaint: Painful wounds on bilateral lower legs x 1 week./. Coronavirus screen: hb At this time, the client does not indicate any symptoms associated with coronavirus-19. Ebola Screen: No symptoms or risks identified at this time. 14:45 Method Of Arrival: Wheelchair hb 14:48 Onset of symptoms is unknown. hb 14:48 Acuity: JO 4 hb Historical: - PMHx: 14:47 Diabetes - IDDM; CVA; Hypertension; Kidney CA; hb Vital Signs: 14:48 BP 138 / 78; Pulse 84; Resp 16; Temp 97.4; Pulse Ox 100% on R/A; Pain 8/10; hb ED Course: 13:45 Patient arrived in ED. ds1 14:48 Triage completed. hb 14:48 Arm band placed on. hb 19:45 Patient's name was called from ER lobby. No response. Unable to locate patient. Will bb disposition as left without being seen by a provider. Administered Medications: No medications were administered Outcome: 19:45 Patient left the ED. bb Signatures: Gela Alexandra ds1 Ana Rashid RN RN bb Yocasta Palencia RN RN hb
[2021-03-18 19:59] VITALS: BP 138/78; TEMP 97.4; O2SAT 100
== END 2021-03-18 19:45 | disposition left against medical advice (07) ==
LOC: ER 13:40
DX: Z02.9 Encounter for administrative examinations, unspecified (principal)
CPT/HCPCS: 99281

== ENCOUNTER 2021-03-19 09:13 | Inpatient (IN) | payer OTHER ==
--- OUTSIDE RECORDS SUMMARY | 2021-03-19 09:19 | XMS REPORT | Continuity of Care Document ---
:1960 Author Organization [facility] t Address [address] [place] [address] Care Team Providers Name Role Phone Pcp Primary Care Physician Unavailable Ishaan Bermudez MD Attending Clinician [address], [address] Room Attending Clinician Unavailable Laura Menchaca NP Attending Clinician Ishaan Bermudez MD Attending Clinician Fredy Kan MD Attending Clinician Migel Carrion MD Attending Clinician Kyle PRICE, PDavidson Attending Clinician Zuleyma Redding MD Attending Clinician ISHAAN BERMUDEZ Attending Clinician Unavailable KAYLEN MAHMOOD Attending Clinician Unavailable MARSHALL PLUMMER Attending Clinician Unavailable ZULEYMA REDDING Admitting Clinician Unavailable ISHAAN BERMUDEZ Admitting Clinician Unavailable KAYLEN MAHMOOD Admitting Clinician Unavailable MARSHALL PLUMMER Admitting Clinician Unavailable Payers Payer Name Policy Type Policy Effective Date Expiration Date Sour ce Number MEDICAREMEDICARE A [id number] 2015 BAIRON Ray [id number] 2014-P 00:00:00 - Medical resentMedicare Center MEDICAID - MEDICAID [id number] 2020 BAIRON Ray MGD CARED [facility] COMM 00:00:00 - Med ical [place] [facility] [id number] 2021- PresentMedicaid Contracted MEDICAIDMEDICAID OF [id number] BAIRON Ray [id number] - Medical e for all Center datesMedicaid VALENCIA [id number] [address] 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 Natural brother Stroke [facility] Natural father No Known Problem [facility] Natural mother Diabetes [facility] Natural mother Hypertension [facility] Natural sister Diabetes [facility] Natural sister Hypertension [facility] Natural sister Stroke [facility] Social History Social Habit Start Date Stop Date Quantity Comments Source History SDAR [facility] - Alcohol Std Drinks Medica [facility] - [facility] Binge Medical [address] Sex Assigned At [facility] Tobacco use and 2020-05-09 2020-05-09 Never used [facility] - exposure 00:00:00 00:00:00 [facility] Alcohol intake 2020-05-09 2020-05-09 Current [facility] - 00:00:00 00:00:00 non-drinker of Medical Ce nter alcohol (finding) History SDOH 2018-07-09 2018-07-[address] [facility] - Alcohol Frequency 00:00:00 00:00:00 [facility] History of tobacco 2011-07-09 [facility] Smoking Status Start Date Stop Date Source Former smoker 2020-05-09 00:00:00 2020-05-09 00:00:00 [facility] Medications Ordered Filled Start Stop Current Ordering Indication Dosage Frequency Signature Comments Components Source Medication Medication Date Date Medication? Clinician (SIG) Name Name atorvastati 2019-08 Yes 40mg QD Take [address] [facility] (LIPITOR) 0-08 by mouth [facility] - 40 MG 17:37: daily. Medical tablet 48 [place] lisinopril 2019-08 Yes 40mg QD Take [address] (PRINIVIL,Z 0-08 by mouth [facility] - ESTRIL) 40 17:37: daily. Medic al MG tablet 48 [place] aspirin 81 2019-08 Yes 81mg QD Take [address] MG EC 0-08 by mouth [facility] - tablet 17:37: daily. Medical 48 [place] docusate 2019-08 Yes 100mg QD Take [address] sodium 0-08 mg by [facility] - (COLACE) 17:37: mouth Medical 100 MG 48 daily. [place] capsule atorvastati 2019-08 Yes 40mg QD Take [address] [facility] (LIPITOR) 0-08 by mouth Luke [facility] - 40 MG 17:37: daily. Medical tablet 48 [place] lisinopril 2019-08 Yes 40mg QD Take [address] (PRINIVIL,Z 0-08 by mouth Luke s - ESTRIL) 40 17:37: daily. Medic al MG tablet 48 [place] aspirin 81 2019-08 Yes 81mg QD Take [address] MG EC 0-08 by mouth [facility] - tablet 17:37: daily. Medical 48 [place] docusate 2019-08 Yes 100mg QD Take [address] sodium 0-08 mg by [facility] - (COLACE) 17:37: mouth Medical 100 MG 48 daily. [place] capsule acetaminoph 2019-08 Yes 650mg Take [address] en 0-08 tablets [facility] - (TYLENOL) 00:00: (650 mg Medic al 325 MG 00 total) by Center tablet mouth every 6 (six) hours as needed for Pain. acetaminoph 2019-08 Yes 650mg Take [address] en 0-08 tablets [facility] - (TYLENOL) 00:00: (650 mg Medic al 325 MG 00 total) by Center tablet mouth every 6 (six) hours as needed for Pain. CABOMETYX Yes 1{tbl} QD Take [address] 40 mg Tab 9-17 tablet by [facility] - 00:00: mouth Medical 00 daily. [place] CABOMETYX Yes 1{tbl} QD Take [address] 40 mg Tab 9-17 tablet by [facility] - 00:00: mouth Medical 00 daily. [place] pioglitazon 2020- No 1{tbl} Take [address] e-metFORMIN 10-05 tablet by [facility] - (ACTOPLUS 00:00: 00:00 mouth Medica l MET) 15-850 00 :00 daily with Ce nter mg per breakfast. tablet pioglitazon 2020- No 1{tbl} Take [address] e-metFORMIN 10-05 tablet by [facility] - (ACTOPLUS 00:00: 00:00 mouth Medica l MET) 15-850 00 :00 daily with Ce nter mg per breakfast. tablet carvedilol 2017-08 Yes 25mg Take 2 [facility] (COREG) 2-14 tablets [facility] - 12.5 MG 00:00: (25 mg Medical tablet 00 total) by Center mouth 2 (two) times daily with breakfast and dinner. carvedilol 2017-08 Yes 25mg Take 2 [facility] (COREG) 2-14 tablets [facility] - 12.5 MG 00:00: (25 mg Medical tablet 00 total) by Center mouth 2 (two) times daily with breakfast and dinner. JANUVIA 50 2017-08 Yes 50mg QD Take [address] mg tablet 1-20 by mouth [facility] - 00:00: daily. [address] JANUVIA 50 2017-08 Yes 50mg QD Take [address] mg tablet 1-20 by mouth [facility] - 00:00: daily. [address] pantoprazol Yes 40mg QD Take [address] e 9-19 by mouth [facility] - (PROTONIX) 00:00: daily. Medic al 40 MG 00 Center tablet pantoprazol Yes 40mg QD Take [address] e 9-19 by mouth [facility] - (PROTONIX) 00:00: daily. Medic al 40 MG 00 Center tablet amLODIPine Yes 10mg QD Take [address] (NORVASC) 9-06 by mouth [facility] - 10 MG 00:00: daily. Medical tablet [address] [place] [address] amLODIPine Yes 10mg QD Take [address] (NORVASC) 9-06 by mouth [facility] - 10 MG 00:00: daily. Medical tablet 00 [place] Immunizations Ordered Immunization Filled Immunization Date Status Commen ts Source Name Name Covid-19 Vaccine 2020-11-[address] [facility] - Mrna (Pf) 00:00:00 [facility] ([employer]Self[employer]me) Covid-19 Vaccine 2020-11-[address] [facility] - Mrna (Pf) 00:00:00 [facility] ([employer]me) Covid-19 Vaccine 2020-10-[address] [facility] - Mrna (Pf) 00:00:00 [facility] ([employer]) Covid-19 Vaccine 2020-10-[address] [facility] - Mrna (Pf) 00:00:00 [facility] ([employer]) Vital Signs Vital Name Observation Time Observation Value Comments Source Systolic blood 2020-05-10 16:00:00 113 mm[Hg] [facility] Diastolic blood 2020-05-10 16:00:00 66 mm[Hg] [facility] Heart rate 2020-05-10 16:00:00 77 /min [facility] Body temperature 2020-05-10 16:00:00 35.61 [facility] Respiratory rate 2020-05-10 16:00:00 14 /min [facility] Oxygen saturation in 2020-05-10 16:00:00 98 /min [facility] Arterial blood by Medical Ce nter Pulse oximetry Body weight 2020-05-10 04:41:00 95.482 kg [facility] BMI 2020-05-10 04:41:00 32.01 kg/m2 [facility] Body height 2020-05-09 20:00:00 172.7 cm [facility] Procedures Procedure Date / Time Performed Performing Clinician [facility] e CT CHEST WITH IV 2021-02-06 12:05:00 Yen, Claude [facility] CT ABDOMEN/PELVIS WITH 2021-02-06 12:05:00 Yen, Claude Quiros I [facility] CONTRAST [facility] CT ABDOMEN/PELVIS WITH 2020-11-19 11:25:00 Yen, Claude Quiros I [facility] CONTRAST [facility] CT CHEST WITH IV 2020-11-19 11:25:00 Yen, Claude danilo [facility] POCT-CREATININE 2020-11-19 10:44:00 Yen, Claude Quiros [facility] CT ABDOMEN/PELVIS WITH 2020-07-12 11:44:00 Yen, Claude Quiros I [facility] CONTRAST [facility] CT CHEST WITH IV 2020-07-12 11:44:00 Yen, Claude [facility] POCT-CREATININE 2020-07-12 11:07:00 Yen, Claude Quiros [facility] CT BIOPSY ABDOMEN 2020-05-10 12:25:00 Redding, Melinda Zuleyma [facility] TISSUE EXAM 2020-05-10 11:54:00 Redding, Melinda Zuleyma [facility] SARS-COV2/RT-PCR ([facility] & 2020-05-10 04:37:00 Redding, Melinda Zuleyma [facility] PROTHROMBIN TIME/INR 2020-05-10 04:01:00 Redding, Melinda Amor [facility] CBC (HEMOGRAM ONLY) 2020-05-10 04:01:00 Redding, Melinda Amor [facility] POCT-GLUCOSE METER 2020-05-09 23:10:00 Claude Bermudez [facility] CBC W/PLT COUNT & AUTO 2020-05-09 10:22:00 Lo Carson [facility] APTT 2020-05-09 10:22:[address] [facility] PROTHROMBIN TIME/INR 2020-05-09 10:22:[address] [facility] CBC W/PLT COUNT & AUTO 2020-04-20 10:17:00 Lo Carson [facility] PROTHROMBIN TIME/INR 2020-04-20 10:17:[address] [facility] APTT 2020-04-20 10:17[facility] AUTO 2020-04-13 11:13:00 [facility]/IN[facility] 2020-04-13 11:08:[address] [facility] APTT 2020-04-13 11:08:00 [facility] Plan of Care Planned Activity Planned Date Details Comments Source Future Scheduled 2021-04-03 [facility]FLU[facility] [code = INFLUENZA Medical Ce nter VACCINE (#1)] Future Scheduled 2021-04-03 INFLUENZA VACCINE (#1[facility] Test 00:00:00 [code = INFLUENZA Medical Ce nter VACCINE (#1)] Future Scheduled 2020-08-[address] [facility] - Test 00:00:00 (12+) [code = Medical Center DEPRESSION SCREENING (12+)] Future Scheduled 2020-08-[address] [facility] - Test 00:00:00 (12+) [code = Medical Center DEPRESSION SCREENING (12+)] Future Scheduled 2016-01-[address] [facility] - Test 00:00:00 WELLNESS (YEAR 2 or Medical Center FIRST YEAR if no IPPE) [code = MEDICARE ANNUAL WELLNESS (YEAR 2 or FIRST YEAR if no IPPE)] Future Scheduled 2016-01-[address] [facility] - Test 00:00:00 WELLNESS (YEAR 2 or Medical Center FIRST YEAR if no IPPE) [code = MEDICARE ANNUAL WELLNESS (YEAR 2 or FIRST YEAR if no IPPE)] Future Scheduled 2012 SHINGLES VACCINES ([address] [facility] - Test 00:00:00 of 2) [code = SHINGLES Medic al Center VACCINES (1 of 2)] Future Scheduled 2012 SHINGLES VACCINES ([address] [facility] - Test 00:00:00 of 2) [code = SHINGLES Medic al Center VACCINES (1 of 2)] Future Scheduled [address] - Test 00:00:00 (procedure) [code = [facility] [id number]] Future Scheduled [address] - Test 00:00:00 (procedure) [code = [facility] 04242369] Future Scheduled 1981 DTAP/TDAP/TD VACCINES [facility] - Test 00:00:00 (1 - Tdap) [code = Medical C enter DTAP/TDAP/TD VACCINES (1 - Tdap)] Future Scheduled 1981 DTAP/TDAP/TD VACCINES [facility] - Test 00:00:00 (1 - Tdap) [code = Medical C enter DTAP/TDAP/TD VACCINES (1 - Tdap)] Future Scheduled 1980 HEPATITIS C [facility]CRE[facility]ING [facility] - Test 00:00:00 [code = HEPATITIS C Medical Center SCREENING] Future Scheduled 1980 HEPATITIS C [facility]CRE[facility]ING [facility] - Test 00:00:00 [code = HEPATITIS C Medical Center SCREENING] Future Scheduled [address] [facility] - Test 00:00:00 0-64 YRS (1 of 3 - Medical C enter PCV13) [code = PNEUMOCOCCAL VACCINE 0-64 YRS (1 of 3 - PCV13)] Future Scheduled [address] [facility] - Test 00:00:00 0-64 YRS (1 of 3 - Medical C enter PCV13) [code = PNEUMOCOCCAL VACCINE 0-64 YRS (1 of 3 - PCV13)] Future Scheduled [address] [facility] - Test 00:00:00 malignant neoplasm of Medica l Center colon (procedure) [code = 434928177] Future Scheduled [address] [facility] [facility] - Test 00:00:00 malignant neoplasm of Medica l Center colon (procedure) [code = 724748786] Encounters Start End Encounter Admission Attending Care Care Encounter Source Date/Time Date/Time Type Type Clinicians Facility Department ID 2021-01-22 2021-01-22 Office SIDDHARTHA Menchaca 1.2.840.114 [id number] 10:51:06 13:05:10 Visit Jaylen Valdes [id number] Laura 0.2.7.2.686 [id number] 2020-11-27 2020-11-27 Office Tawanda Bermudez [facility] 1.2.840.114 [id number] 09:48:38 11:14:28 Visit Ishaan Valdes [id number] 0.2.7.2.686 [id number] 2020-10-02 2020-10-02 [facility] 1.2.840.114 [id number] 09:52:54 10:12:54 Visit Ishaan Valdes [id number] 0.2.7.2.686 [id number] 2020-07-24 2020-07-24 Office Tawanda Bermudez [facility] 1.2.840.114 [id number] 09:42:03 11:50:12 Visit Eddanilo Lucio [id number] 0.2.7.2.686 [id number] 2020-05-25 2020-05-25 Office [facility] 1.2.840.114 [id number] 12:15:16 14:16:12 Visit Eddanilo Lucio [id number] 0.2.7.2.686 [id number] 530 2020-04-27 2020-04-27 Office [facility] 1.2.840.114 [id number] 09:42:37 10:02:37 Visit Eddanilo Lucio [id number] 0.2.7.2.686 [id number] 530 2020-03-23 2020-03-23 Office Tawanda Bermudez [facility] 1.2.840.114 [id number] 09:07:42 10:05:06 Visit Eddanilo Lucio [id number] 0.2.7.2.686 [id number] 530 2020-02-10 2020-02-10 Office Tawanda Bermudez [facility] 1.2.840.114 [id number] 09:58:05 11:20:50 Visit Eddanlio Lucio 350.1.13.21 0.2.7.2.686 [id number] 530 2019-12-02 2019-12-02 Office FlynnClaude bennett [facility] 1.2.840.114 [id number] 09:52:39 10:12:39 Visit E Lucio 350.1.13.21 0.2.7.2.686 [id number] 530 2019-10-28 2019-10-28 Office [facility] 1.2.840.114 [id number] 08:54:45 09:24:45 Visit Jaylen Lucio 350.1.13.21 Laura 0.2.7.2.686 [id number] 530 2019-10-07 2019-10-07 Office [facility] 1.2.840.114 [id number] 11:02:38 13:13:39 Visit Jaylen Valdes 350.1.13.21 Laura 0.2.7.2.686 [id number] 530 2019-09-09 2019-09-09 Office Claude Bermudez [facility] 1.2.840.114 [id number] 09:18:01 12:12:58 Visit Keysha Valdes 350.1.13.21 0.2.7.2.686 [id number] 530 2019-09-02 2019-09-02 Office Claude Bermudez [facility] 1.2.840.114 [id number] 12:23:05 13:04:24 Visit Keysha Valdes 350.1.13.21 0.2.7.2.686 [id number] 530 2019-04-26 2019-04-26 Office Claude Bermudez [facility] 1.2.840.114 [id number] 08:26:03 10:59:55 Visit Keysha Valdes 350.1.13.21 0.2.7.2.686 [id number] 530 Results Test Test Test Comments Results [...] or symptoms of prostatitis. Signed: Guillermo Mcginnis Verified Date/Time: 02/06/2021 17:27:30 Reading Location: [address] Consult Reading Room , ABDOMEN 2021-01- [facility], please 07 compare to prior. Pt in 17:27:00 wheelchairRestaging RCC, please compare to [facility] prior. Pt in - MEDICAL wheelchairUnlisted CENTERName: [...] MDReport Verified Date/Time: 02/06/2021 17:27:30 Reading Location: [facility] C013X Ortho Consult Reading Room Chest with 2021-01- [...] Mcginniseport Verified Date/Time: 02/06/2021 17:27:30 Reading Location: [facility] C013X [facility] Consult Reading Room 2021-01- Interface, [facility] Abdomen/Pelvis 07 External Ris In - Carmen [...] Mcginniseport Verified Date/Time: 02/06/2021 17:27:30 Reading Location: [address] Ortho Consult Reading Room Chest with [...] or symptoms of prostatitis. Signed: Guillermo Mcginnis Verified Date/Time: 02/06/2021 17:27:30 Reading Location: [address] Consult Reading Room 2021-01- Interface[facility] Abdomen/Pelvis 07 External Ris In - [...] or symptoms of prostatitis. Signed: Guillermo Mcginnis Verified Date/Time: 02/06/2021 17:27:30 Reading Location: [address] Ortho Consult Reading Room , ABDOMEN 2020-11- Unlisted Reason for 19 Exam - Click Yes and 13:06:00 Enter Reason Below->YesUnlisted [facility] Reason for - MEDICAL Exam->C64.1Will this CENTERName: procedure require oral DURPRADIP OSCAR contrast?->Yes RIGOBERTO : 1960 Sex: M FINAL [...] MDReport Verified Date/Time: 11/19/2020 13:06:19 Reading Location: [facility] C013X Ortho Consult Reading Room , CHEST, WITH 2020-11- Unlisted Reason for IV CONTRAST 19 Exam - Click Yes and 13:06:00 Enter Reason Below->YesUnlisted [facility] Reason for Exam->C64.1 - MEDICAL [...] MDReport Verified Date/Time: 11/19/2020 13:06:19 Reading Location: [address] Consult Reading Room -Creatinine 2020-11-19 10:57:00 Test Item Value Reference Range Interpretation Comme nts POC-Creatinine (test code = 0.8 mg/dL 0.6-1.3 : TESTED AT [facility] [address]) [facility] [address]: Label Drier/Techni vipin ID = [id number] for FLORENCE FLORENCE POC-EGFR (test code = 1860) 120 mL/min/1.73M2 [facility]-[id number] 10:57:00 Test Item Value Reference Range Interpretation Comments POC-Creatinine (test 0.8 mg/dL 0.6-1.3 : TESTE D AT [facility] 7200 code = 1859) [facility] A, [facility] 7703 0: Label Drier/Techni vipin ID = [id number] for FLORENCE HINSON POC-EGFR (test code 120 mL/min/1.73M2 = 1860) [id number] 10:57:00 Test Item Value Reference Range Interpretation Comments POC-CREATININE 0.8 mg/dL 0.6-1.3 : TESTED AT [facility] (BEAKER) (test [address] [facility] code = 1859) [facility] 7030: Label Drier/Techni vipin ID = [id number] for FLORENCE FLORENCE POC-EGFR 120 mL/min/1.73M2 (BEAKER) (test code = 1860) CT, [id number] 14:49:00Unlisted Reason for Exam - Click Yes and Enter Reason Below->YesUnlisted Reason for Exam->c64.1 [facility] : 1960 Sex: MFINAL REPORT [...] MDReport Verified Date/Time: 07/12/2020 14:49:15 Reading Location: [facility] C013X [facility] Consult Reading Room CT, CHEST, WITH IV [id number] 14:49:00Unlisted Reason for Exam - Click Yes and Enter Reason Below- >YesUnlisted Reason for Exam->c64.1 [facility] : 1960 Sex: MFINAL REPORT [...] Stable bilateral pulmonary nodules. Signed: Chandler Perales Verified Date/Time: 07/12/2020 14:49:15 Reading Location: [address] Ortho Consult Reading Room [id number] 11:20:00 Test Item Value Reference Range Interpretation Comments POC-CREATININE 0.8 mg/dL 0.6-1.3 : TESTED AT [facility] ([facility]) (test [address] [facility] code = 1859) A, [facility] 7 7076: Label Drier/Techni vipin ID = [id number] for FLORENCE FLORENCE POC-EGFR 121 mL/min/1.73M2 ([facility]) (test code = 1860) Tissue [id number] 05:43:00 Test Item Value Reference Range Interpretation Comments Case Report (test code Surgical Pathology = 104) Report Case: [id number] Authorizing Provider: Melinda Redding MD Collected: 05/10/2020 11:54 AM Ordering Location: [address] Received: 05/10/2020 12:35 PM Service Pathologist: Ruiz Retana MD Specimen: Abdominal, peritoneal mass biopsy DIAGNOSIS (test code = f6verVBnVGSch8dwQOJvcT 3220) FuZzEwMzNcZnRuYmpcdWMx IHtccnRmMVxlcGljOTIwMF nidpVwXNMgaRGwS9Gekebs FDpgFH5wPA6ebBsygNKodQ XiOCTcKeRxi5lut598cEVr t9cdAIHQscxwoOp7sTibL0 8zo7T5PwiwK18sgYEmUGku bGFpblxmczIwIFBBUlQgQS WEFOIYHQ7LHHGOED3BL6Oc IWRJJ4VEXQcwcAZbWHTREf TQKGCQDJxpT1GAZ3qVG79T HimcOHVkF2VJCBBRJXfYB7 JCUKLmX38ELUNQFO6vbMSi uCsieoAwNCypq3NlOBcjXH IqPQ2lqZdqLXCvAY4vHYGn G1dbiA3dywb9KeZiYSPrVw W1ORMjpjO8Ton1MJOgFMwo o3irk2RxLQPhPAr3jFnzYo WoXKErl4pmfaOdNbNsZMZd UFGoZWThvDQxP407c8lnd6 trvuIuxAT8CXYrKTL9WUak trUmifE2FZmjqYOmAsT4KL tccmVkMFxncmVlbjBcYmx1 FPPeS340AHB0fEnfm5shJH X0UEGuTXJrVjTbNp9szGHa K943XWPkOMGDGNKoySn4XJ ZogfKxnuVbcHWZt571G174 f7kyXHVbtgJutRyYasxnx7 fkI301RISmnAWmhpOwToUx OSApeCZivKR3IVVaNS5kxf dsAAxcVXgbQHWkubB8BZTn zVLbD7RmCLKaMM0flixzHK N1GFnbEYCoMKU6PgBiHSBq q2Sdvlh0IdIglu4bit24HD G7f4YawWkoEOP1XNY1ZeMn Bz8nzRCjCMAgKT4kHiChqA RcXOIbbd14wQoeAGudLXM9 AREmhcSqj8Jxk3ttNcSonc LqH1rcL4NhLVZyNWUxVWJm IbTvuwHme6Mvk0GbaYXqoE r1u9qzQQXoXMBzqMoky2hp VRH8UHKgfSAcP2bnwS5aPA WlGQ3fjzuof8giYBxlPCpk YMLhlMR8eeP7TFPasMVeY2 EpzT6tIJQiIBxnQINutjm0 KzArLz5qxDRjvYoxMTqdCu twYWdlXHBnbmNvbnRccGdu ZGVjXHBsYWluXHBsYWluXG YwXGZzMjRccWxcbGFuZzEw MzNcaGljaFxmMVxkYmNoXG VoZQllO1ziBoUjSuOcVbb3 FUEytBGiCOBqFib4NBXkzP PoBGHUcXtptY6qMRNtaJnx wN2yuOV1QTNsmxKvnYTFeK 7bUPSFeW3fCqD4PgHyBnS2 HFH4VMNfoJGlmB2= COMMENT (test code = m9dgbCUrJNLqyTW0CbQgOW 1928) Xek9don6XkfHGgePGcCBif iVVkqjJpmw34dXZ2zG72IR 9lRZIrIgS3TXPrrwU7Ltq6 WWRsLKEamAXlB476h5aqc7 qemfBoaIQ2mBgmKSFbRWSl CBbkJKSkTsQkPQfuxB4hj5 ffT9ClHNBpC6Jtv00wQVFr tX7zv8UeSDSkATCkZ59vNB QzYLZvaPJeQwbevJE6RJ0i OAEop1P7MEFjxrSweXZzSG NhiHTnXCC5yPXomYlwiuVv lk70wIMcrIZzs2XvDZEdBO C6fT6vawFeMVuiqqOgKOOm FCMgD7lcIGNqC9QuaJNco4 OhyD0go2v3WuGNiY43zj9e jOY2i7XfEV7zX9PqKMV6tJ BgRNJjeYKdEe3thOXwIA8m XWKvs2ZgTIWdJLAohZ1og9 OaHCAnJMYrOPN0kW0ppuDu RCfisgP9zdLfXKBcy2OtiG d9HVMip9MfSUAWZZKcqvDa JE3HF3SvMAQpoUBldRknlC Lhm1q2aGE7oULgwtCpg5W6 VKKgW8nztnrtQClrxOfqsN 6mhJBnUfLsLL9hcYSxOHjp SSWzyhRhvr1pGX2oGHJkqf 0= CPT Code(s) (test code a5nrlYFmJBOabYX2LxYoZN = 3357) Qku6avx7ZotMFrvDEiUBrj qJZzayRood58pPG8uO04JM 8gBBOhIpT4YCHfvaL5Dsa0 BPSdZKDsgRRhP707d1pyr4 tjsdVpyJH3rPgnHRYpVQHt YWluXGZzMjAgODgzMDUsID o2ScYvWPN0DVV6TGzqCCA2 CLINICAL HISTORY (test b6ifzTXmDBZwcIPqQsHvLY code = 3356) XyUZFas5hpCBJlbFSmGoHd MzNcZnRuYmpcdWMxXGRlZm Slu1acm534nUIhv1wlPLEe RbL5lLXtCOOuzTBmL520g7 wfu5yrrsKqrHY9BODkUBG0 GNipsvYlsuQ8JAcceNDtVw J7HNcygpMcKUrrncLdscBq Tjb0RHWoX896GBQ7xHsdo0 doXBZ8TUZzQLXwYoGuWq7y uAAzE213ASGsDGLGBBThcF w2UDJmgzIzcdMzfRICg282 X103p2mwCPDldsOkdWmNlp nlk0wkG200FXWtsVHhsyDc ThCcEZMvvXJlbTP6FXZyOV 8jtoxaHsQvFP1fcbenEmAh IP6jfaq1YjNzIB6uwrchGp TgEWpqIISzbknwFNRam3Xa orteJK1mV9Wks3Y1oP7gxT HjIEQowCSoUsQuAFIwjf9l aWYsLMyfy8RiRCJ6gvI6dD LugILkWQTsCJ63Pclqr7Bi AljnUYH3SQKkitSta0Obe1 elVmMkgwEhQ3eyY8GgNPZz HKGfSTAwOmZjauDaw2Gxo9 FwwCJoeZt9o3jnTWPuOOUq qNwtz1whJQQ8PZEjQ2X9eA Qun2amEIvhDYFvjQT9zpwi HUuoDLMxdhT6zjorMSzvCL XpwWZ2lzhpTXnfAOXsVwB5 eltyDIqxJWQdPXV6XPhwl2 45RZG3NUpfKynvFXglFCJo bmNvbnRccGduZGVjXHBsYW luXHBsYWluXGYwXGZzMjRc qNawsNsswN7hRpVhHbXcXT ukVC5mTPIdH5iiaKTgYPGz YHHgO5pjVtUkiK2tkFzxGZ wishZqZCSzJGDxJPpjSE6w ORPalWvzktVxfMlzdX7vwQ 5ccGFyfQ== SPECIMEN SOURCE (test n4wliFAnUSYboYZ2IdBqQM code = 3377) Vnm4nvd8KqwVAjjFFxYSnv gDWydpCddi90xCA2mB67NY 1dMITjDaD8KZXbpmU9Zvp6 VEBkDDSqsXOwY419k7xhp3 zqorNzaHP9wAerYDJcCSLs YWluXGZzMjAgUGVyaXRvbm VhbCBtYXNzXHBhcn0= GROSS DESCRIPTION (test p9rysKPdXWZspNJaMyZhMH code = 3366) BhVCUwn8mvFOQuwAUmVbRo MzNcZnRuYmpcdWMxXGRlZm Lxk4kek092yJQbn1guYNSa RkD9dNPqSRGzmDWuG337a0 mos8bqjbMkzUI3UJUqVFE9 FJqrpqIaraX4JAzocYPkGs Z2YGbibfSnDCfogtSznxJl Esw2ESUiA970ZNU9fHfna1 snLWN7DZRkFGCkBzPkDg4v iEMuR698XZXjUXLWFAMxbA a2OJOdpkKbizAagOECk673 B482h9nxASZtprXgfFnLil dtg5dxJ314VANejVBzphFe RcMiOWPuxFWljTD5VUSoNT 3hvdziZeOsIO6bpcwrDpRe TP5mxpo0TqXeTL4kcsmsPs FwQCtcFFRwpdhcVLNys6Nq kuylMH3yL2Mmj0X7eY0aoF RwYJZyiTUwLqTyRPUibq4w cDQcGAqbg8DwNSJ9ctP9eC RuvLYvAWZpBL48Bnlqe8Sw AwbtRRA2KXGvfzPbr9Gfi5 uiDuVvkmHfB5aoQ1XxWUXu TRFcXDHbJpGyhgXgu4Whr1 WutBNfwQp3t2jfNMYeXHUk iAfgo5tyFYA3WEYiK5J4rW Mcw6yvXJlmUZYfxZN4wddg DJnvCOBekpL8jroqJSzuVM NxwMB6wlynVKbpDDVfNcS0 ivaiTGbsKEJqCHB9YLxhu0 91CFX1RRtuWqpzLSofGEQw bmNvbnRccGduZGVjXHBsYW luXHBsYWluXGYwXGZzMjRc bHRycGFyXHFsXHBsYWluXG YwXGZzMjBcbGFuZzEwMzNc aGljaFxmMFxkYmNoXGYwXG jvE0dkRqUwBjQbOOPZUGNg lQMhKTNmvfXur8MvHFnqyf BsYWJlbGVkIHdpdGggdGhl ISJnmVxtvqXesaWgPO7gRX JoBCMgI5YiVUGmQ02wOKIy sC6fCGAeVE2pRLEmHkBhjO fxJZnoQWYlDRH8t30prNrc L6XwDN6kHTHfqc41fFz9DY Osc6M9IKIjq8I9SOS9gWN0 JN2iOSI2tsLaQP10QHnxXN 71DUvdMD7xRVRdSZsnIJQf S5FlS1J1DJ9rOFyhLBZdCN BpfMJxUYviVAF1Lg9bzEHk RKPvgfE7v0DfZYAyhDmap6 mwWrWqpMb1ttT6bG2vTVku WTZqh9AxxDQiLXHbHvNHGK IvZXcgXHBhcn0= MICROSCOPIC DESCRIPTION p5opfZOwTTIzuCG1UjJcCO (test code = 3371) Irv2dna2LugVPjiIIoPIfz iMVmxySxuu68zYG3lI16XE 4mCXIfPrJ4MUEvnmB1Bqm3 MLHaCWFotVUbC292l3zkf0 jniqKjhWS0qQxcBGOxLZXm BYjnDROfVxFoBDEsEo2nbO VkLiBccGFyfQ== SPECIAL STUDIES (test f0aeaUKiBUIrvRS8VoCtPT code = 3376) Qkb1vqb2AlaXWzuWCxIQes oGUkjqFdrx34iBA0mT40TH 0aSGAxArQ5QIHkcwC8Ixd5 EAEoUOVcbBXoH743HZBfKD IfnLrtbiy0rL46KHIqlE6o yTKhQLv3YRJjlzOpkTuloJ 3qMaKqKsVvLtPQoEBxfC94 YUAghxD5XXAay49xl8CgaB dzhuReVCIdKExuG6t4KFLr QLAcRLD8y4Ptb3ItmO4rpY 8dhLqneA5pnHBrqBB5vdrc n4Jkb1BsE7hbrKNanIJjie QoPCJrjhVYDX1VFhYFIB7h UHIBHOxaMJ2MK4XeqHGmLH BemaHdk2swX8wfKHGjPVT5 UF7ssnYsHeYbXO6kjY67z2 Rba87sp96lcO9pzJIdlwHh T35pyLKybTUqi5XzXDBuah AjnHL4FLUiHQmezvykj0b1 lLV5nVEdbNIfgCC1rYExjD QwRFOLsCMmSNEzk937rn6l FEWlhWIhooJwgX2jLGlxrt srxVTlBG3eVJLbWPOyLNUs UV59fwWrQX6lhZHtw3rdnv KenJCaq5IhoIA7APZfeQXk mhwnWo0cAR51YZHaZAomnY 2unFVchoKuLO7jCW2rB5S7 hIRmUTNkztYbn2vuSBzxQO 4gYXZhaWxhYmxlIGFyZSBl swCjfAQ9GVFtuTKuJFLsbA CiLWjckMTts0mnp5ToK5kh sCderWU2AHQvO5nlsMJvkT W1YIQ4xS8qBMriufLlNKTi m7KuUZYyIKDkFyF6jC5wHZ L9IaTTsGplBOW1DiE1BPlu ALEfXE9iLYwiEKkqQ7AcvQ BaOGJAVLMpa9tmZ5ohXOVi c7YmcV6njWF4vNZlSVUtbI M7ZDAtNAC1CZyqdRQbSSZr BEEajNTgmPIsDu7djXLhM5 YnL5oidvCkuLTtxEJ7sKZp GGesovWiJJX9CBUjpD3zQH 2xOYFreIHbMP3wuENsDBXe WBQvSUDbIAKyw0WmSVZijj 57EWBxJwbouNgfNUEpOw9p Ia2aHVBcjoZsBVK9DqAEBJ 6undrwzMYxwIuokd5zONcf NUSXMHOvRJUoHKR6DERulZ 3gWXW5jHV1ZDV7I7diW5tn ASNhrdUwEC7hAFCstLJmqq MfHIwaVX4bvFDfFFZup2Hp tqfcSLAnPGN3BNO3BKohLP PuJUPxDu3qTVKnkD3bS9At JMC3vtEbo5JuUpKUrKSgzN 84pEJwhg45HTTlSZBqO3Gf ZGVkIGFzIGludmVzdGlnYX Rtg48ngWYaojAcw8OfhzAw ZJPhD2eqXYThbGItqXGyz8 DguW7npBJztdKxHOX1yLId SGZhtY4zLKOszFqbPXMpzY 9gD1JxDLpbGq6tHIEgnudh EN8ott26IE6ceqTuZV4xwl CjTX23aoVuAnKyPGm9HCmD CQkZUNa4ZWKydiIfeZNnvT HsJXWaaF6foRKaUd0bfAEe aWdoIGNvbXBsZXhpdHkgY2 qjamxtVCgccSKud4HhiH1b kMG6KGO5jQ7iCmgvJHS6 Gross assessment was [facility] performed at ([facility], = 2777) Department of Pathology, [address] [place] [address], Technical component was [facility] performed at ([facility], = 2778) Department of Pathology, [address] [place] [address], Professional component [facility] was performed at ([facility], code = 2779) Department of Pathology, [address] [place] [address], [facility] HospitalTissue [id number] 05:43:00 Test Item Value Reference Range Interpretation Comments Case Report (test code Surgical Pathology = 104) Report Case: [id number] Authorizing Provider: Melinda Redding MD Collected: 05/10/2020 11:54 AM Ordering Location: [address] Received: 05/10/2020 12:35 PM Service Pathologist: Ruiz Retana MD Specimen: Abdominal, peritoneal mass biopsy DIAGNOSIS (test code = [id number] 3220) FuZzEwMzNcZnRuYmpcdWMx IHtccnRmMVxlcGljOTIwMF ghjaGwCEZmsEHpE4Pzpknu KCutNR2fCI3yiLrhrMPkoV BvDMVkXjZot6lwq810ePEo j1bsXVIBengwpZk0pYgmR0 1ip5W5HppkO26zcQGeCVqj bGFpblxmczIwIFBBUlQgQS FAWAJJIG9RSHXPET4BF9Ax ZHCPC7GJXXlahIQmVSFWRo FRFTUVQEjlJ2GZR8kOD78S QgnmCXZzT9JCDMJWCDuCT2 GTOLDfU06XSHWDQM3klZUv rUhvxqXzBLjyv2MsAGztAS EvDP0qyMwxUKKyWT8oBRIe K0ywkR8aifw9GsYkCOSpUs X1YJRvadD5Wsd4VFHaVIfb j1ehs4KuDHSmKJc3nWyaQa DvPSBsc9owxzHoTfFwGTFl GMOdNFPvvBImO765i1dry1 vxhrAqcVD6XFFtCBD9WCgp ouQwcsJ1QOygjIQnUeQ6YC tccmVkMFxncmVlbjBcYmx1 ONYcI086RRM7xUolf2gdTV K5ORVuFKGzFfMdBy7khGEz G494WZNkSVYTIHHcpMs8FT TeaiTqmwUvgYGMp230W907 p3agQFRdyyDtzCxLdghdl2 mtN476ICBmlYNmwgEsJpPh DUYpsIJtjWB6QYVxPR4lrr sjYNpvSWljSCIoqpO1VGZb sPRiW3PjXGTzUQ2qmrcoAR M6ZGwtIVVpRFF6MuEtWLCx l2Vbjdj4XbQnld6tlg55AE T7l4MfvPqjEQJ5VVT3AqPj En1cvHJyUPGwHU7qTpHzmQ AlDIMxpj61aZndKEhnBCW1 QNYkayHlx9Ipe2drZiZyfh CoE0tfD5AxTULqWMMqSYPt SaSxzoBrd3Vmd0SgmNEdqK t8j3mcQOSrLKUtvAgqy2uw IXB7XMCafUPuS9dnpA6dZR PuCQ8jdbgcb8ivGRbnDQgr OMDzbBV1flO7GWAjcXDzV3 FxtA8iNTVlJSqhTDKupis9 SxMkWk3bnTWuzJhfTOfyGe twYWdlXHBnbmNvbnRccGdu ZGVjXHBsYWluXHBsYWluXG YwXGZzMjRccWxcbGFuZzEw MzNcaGljaFxmMVxkYmNoXG YrWVwsT7zrTdOnWsKsYmi8 MYPpxLDdEQQaMjf7MAEmkN PpBWIPgUvvuW1sQRWgfUus fU0lnIC4CGXrwsLatEHJsR 5dNHYUsQ9sLzI4ImOzWgN7 HFP2FUDvoOZkxY5= COMMENT (test code = e9uxuKDmJZQpuLJ8DdCtGU 2313) Ccm2nog9XeeJVpsJVkVUde xNMztxYtkt42oXL2rO32KV 7oLOBlGwS8NHQyohV0Zql1 RTUyOKOslXAbN196s5onm1 vcrtGbwZZ3xLumTOMlLMLn PBinYTQdDuMnZCevkP6ct5 lvN2BxKVEaY5Hae12uTUXn gG0tl4LyVPRjMVZpH60tWO JiDFQnsBDsBjpysIJ4PK8f VJVfu7I2PKStmcCdfGZmMT BsiOOqHXI0vDZcgWexmeAl qb74dTSezQGjr0PbKTJdFW Q9qE0lkvEvRPahtzMfZMGc XXJrN4dcNBWgK1FmtBJng5 WycJ1tn7i6ArSNkD54zm9s sTB3h8WmFP2hK4VxNSH9sM BnXZXoxRTgAb5dmBTrQH1p VDXxj9ZtECHhPQBvuP7mf6 VwGCTnNPJeAVA7tH6gtiHr BSavocQ6fcRcOJWzt9XddL l3WZKfp0ZpQUXSXANugiMi KG8NB0AkYGGmeNNiwJdurK Kuz8t8lPG9yRKoonNbv3S1 BTNuH2ldgpisYQtghZdgfD 6tfXUvSyJpKF1owBJbELze KCHeipFusp4pBK3tLMQpjn 0= CPT Code(s) (test code t3sozSQdUNHsdBM5ShByRY = 3357) Xzm1rxm9PlhQJxkYJxGXxl xZNackZdsf45ePI8rT98ML 7uOMVqQyD6XAWflbG0Gas1 JKSaXZGypTDzV795t6ucb2 wqevWptNI8lSxwDWYrSOXx YWluXGZzMjAgODgzMDUsID t1GcQcCGC1TTE6COsaXJW7 CLINICAL HISTORY (test y3udpOQoSGAuqZAvEvKyLK code = 3356) YmOSLxa4ydFDCupSElOcVe MzNcZnRuYmpcdWMxXGRlZm Wsf1ocp658gOQjy0kmJLFv TyW5uNGcSQRfmWTmE944u6 klk8cuofRkeJL8TVKaNBF3 QWgjxwFsjmN6LXpwiAYeWn E3ZTerkaXrJWmytkExfrQn Qfi6RQYjS062FOR4vLqdf3 seZDH4FKZwBGPpGcMtEd5l hAVmS457VZXuQGOKWGVpkZ t8DHVgtfRywcMlrPVLf623 Y669g0ofMMHigqRjoYvVey dyc3tjZ599MGTuyRPyubZb DvSiFSNmnAOjlNH4YMLzJZ 7tfovgIoBzHS8zkngtLnIh NX0rshc4HuUrYP2zlpfyZm DuNFspPTZfxjbgFUFuj3He zmikDZ9cA7Huq3R8iM1jwH BsJLGvuESdBhVaKWLqaz0x wSZpSHigo4QuIKP9fgU9aM ZowARlIGZnGZ78Doowl0Wt ZcqtZDV0IKIrsuToe2Xre7 snXyGrlxLgS0hpW9ToIJJu HUKfOITxNyIucsBdt1Nbk5 IydFNozCc5k8faCETjTUTd mZxep0zmNBH9MGCeL2I0rX Mve5rjAFydTCFcwHP6yihx MCerSVEhcrZ6kezsCWllIT LvoDK1irohGRgvOSYkSqY8 izlfSOvvIWEvOMT4UEemo6 51ROM0RYmqZlniAFktTULu bmNvbnRccGduZGVjXHBsYW luXHBsYWluXGYwXGZzMjRc rWxwdWslnL5gLaWkDgDkCP jdBP7sTYDmQ6actTBaMBFk NMAjG0xeOuJdrQ6hhQaeXN yzowHdFTFzBMFlZRgpZG5w YVEbaNaxrbYoyMozaC6ozH 5ccGFyfQ== SPECIMEN SOURCE (test p7uhlAHmFOSjiDP8CqJhMZ code = 3377) Jar9ugg7OrjKHcvJQjVUxk ePOhksRsyu23eDP4bR83WL 6fDLDyRlN1AYAiqtX7Euz2 MFPcUJEvrWZvH932n1awj5 bxkmCbtUO9dSjxADPcZNZy YWluXGZzMjAgUGVyaXRvbm VhbCBtYXNzXHBhcn0= GROSS DESCRIPTION (test f0butYDxQDLtuLBrJqUmCX code = 3366) QhNDYwz7rnYFOwhTAmHdRt MzNcZnRuYmpcdWMxXGRlZm Gwt9zwv993yXHfq3xgBGSz MhV5mOCwHXZupLBhQ431o7 fnj3tkfpSbfAW3DBByZOT7 TGhivwKtbgX8LLrgzJVxTn H7ZUdjibGjQGdnuoKhhbEz Aaj5GSGwL892XXL9hYvpd4 njGFK9BKMbWPNoPjBrLl6u lJYwU299CWCeHAENBNRroM j2QHQnliOmawYceDDTd690 V112o8eyOXPvjgFgoRvSqu lbo5jpJ958KKVrbQSwqbPx DuIoUABbsTDnkAU5YZIhUK 7qxgjxWaVvQB3aaxuaBdOi DP4asgz8PtKoUS2rgiheCe HdBGegPNUneetnFDBgs7Qd qmrhQK7eG1Gnu8Z8vJ9hjC AlQTSpdKIdIsPqTYUujr2z vAZxIMyzv5YoYWR1vrZ3nC AfmZEbJTYoCI60Vuylh2Eq AupaCXM5CIKwyaFtx6Oev0 weLqWolcWzZ0iyR9XmDEHj IFExGEBvDpXejdAnd5Wgd2 SabALumFp9o7thWUAdEVHv yKoeu3apOHR0LUViJ5D3dK Vpy9thRMvbAVSnjVA4otjb OZixBTHrseS3vabuJIfzDV TngYE0gzhpTEiaXKJvDcH9 ocpdQUfzNJBqPRM6FZzjc7 77HPU2SCfiGemtIWjwMRVs bmNvbnRccGduZGVjXHBsYW luXHBsYWluXGYwXGZzMjRc bHRycGFyXHFsXHBsYWluXG YwXGZzMjBcbGFuZzEwMzNc aGljaFxmMFxkYmNoXGYwXG koI7ixDpTdPmEfWJAEVCXm vHSxAXPoxwJnd3FaWLbkfi BsYWJlbGVkIHdpdGggdGhl NQIhsVcphnWndjAyMA1tQC OnBIHaL9BvYBRkC65nORCv vD8bPOHzDK3iJNChGoExoK vsWFtlZBQbUFN7g99rcZuo Z8YrPX3zPXBrpm99qSn1SQ Qwf8T2LYBgx3W2TSO7iQA4 UD2xDZA3rcCuPV17VNymXG 21XHpsHU9dBXOjKMgrFYBj X5EtR2N9OZ8iHEgfHHZnIO UqrLZwNJinACC2Ng7ofNCv ZZYnrfK2k6NoLIQxpUkkw3 wrHgFplKm1kpG9uZ8eXLam MYEuq6OscMDmEMSfCnZKPO IvZXcgXHBhcn0= MICROSCOPIC DESCRIPTION y6myyGZsWPUqsXP3HiLjTV (test code = 3371) Ujp8kda0EsfTSuyNBwSRuc vFNocgEjlm28uDC6dB58YJ 6sUAMvOuC1OOUdazC9Qmy6 ADAgYQZjfBZqH657p6azz1 dpzyIrdNK7qErrLGRtYOXq KOfrPIMtAzShLYWcVu5ayX VkLiBccGFyfQ== SPECIAL STUDIES (test m1shoBLmTIJrrSB5SsTvAI code = 3376) Xaf0hky1OwqAOzfHMtKMqw dLKkyoOslx42kLE6iR53VT 1zIXPaBdI5BDVinyD4Yjx8 RJNqQZGcaMMmF036WZOtUO LxoRoabpm4kI96IVJwaP5y aLVsDJk8ACTotbHcvOoevC 2bWdYcYzFlVcKWnOErrM30 VOIrmkU5JKJrb27hf1PwaW cksdYsBMLfSAcyY0z2UGZk EYOgYNA7b7Qyh5GmeF7eeS 8qgOrcxQ9lfEJoaOC1ovhc m9Mng6YzW9tmtKRdgJCcmh QoXDFrxiQHSB1YBiDOYH4n HEMFJDwoJD1SY1BbsWUpZA PngxVmj3weQ4pbZLAsAXS1 GE2xczEiEvVlNV7tfS86b1 Iag35je81dpE9acTQwooSg P79yaTLqjPXbm4PoUGGgrl OwqPH4KUJtLMhzvlmnx9z6 gHB6jKFvtVIghCH0bQPucH BkINHWzFZtGNAbs021wc0r XOUtdYAawxOucL3zDQautt djrOUwEQ1mYUPmZVLbRDVn NB37acStPV7lrSMvd5qlin LcaWIeo3OzuQI8UELedFXn uomvSa8jJA06LIFjLNyijC 7elFKcjoFxUE4ePJ2qD2F9 wPUqBVMdmiSlk8qaRFpdXG 4gYXZhaWxhYmxlIGFyZSBl wtGyuIA8MUAyaIChCUNrhI HgXVvtsFQyu2lev6UxM2rq cZvkrME7MAJaN1mggPGtdQ B9CMU9zN3nRHbrgmXkDVVw y2OlXYRzGIPjLkI7mZ7lKM O9VpHFtYdgLKY8KjV7FXlp LECkKU3sSJzyDSmpB3GpbJ HlKEXQYRHpd7bsQ4zcRXMt i5KyrA0pgJA5aHJwVRXshV U9GMWbSAG8RWefcYCbQQLv YEHhjQVmzIWwHr2bcYDrB2 ZmA9xkdaUacMBlxIQ8mVWe SRtyijQgXFN6DTBmxS0xPB 2eJUQkaSWdHY2wmDKoVCFs GIBmXKQsEXQgg3XfGWHajw 07RMLnBixnfOswWLIyOl1e Sy9kZWSzhoUwFDL3PoQKVK 2aqflmcSQglHhlbx7vYKgd HLGOQCIqBTGkNNE9NHKzrK 8mFIO7rBL8YMT4R0oxO4ew HCIcaoXvLL3eRTYeyPGadt NdCGgcBU2nkRQdRIEhc9Hh qqbiTCGjZWK7JXL9BNbqAC RjXJEqFu3qKGXbgU0cP7Sk GKV6joFth8SlMbFEwMLakE 87zXPidp80UAPeXTQuW1Wu ZGVkIGFzIGludmVzdGlnYX Rwr91enZYdoiLhn7TenqWb TLKpE3yfGKBsnOJnsGUly4 FknR2ojPVirfJgNEH4zXXa ETXzcQ9nIZFecCfjCAXyaS 2mM6SqUUjbHl2gJPLqxawk XE3otv91MU2gkcMoQR3qdz ZpFS33qhBnMrFxUFe3BCbN YXrVLTd4OKQuacWsmMGfsT VkNELeqF0soIGsVj6toXXb aWdoIGNvbXBsZXhpdHkgY2 hcjepdZIhnwPEoe8BzgH1l aCH1RAW5rF4dKjcpBMS9 Gross assessment was [facility] performed at ([facility], = 2777) Department of Pathology, [address] [place] [address], Technical component was [facility] performed at ([facility], = 6179) Department of Pathology, [address] [place] [address], Professional component [facility] was performed at ([facility], code = 2779) Department of Pathology, [address] [place] [address], [facility] [id number] 05:43:00Surgical Pathology Report Case: [id number] Authorizing Provider: Melinda Redding MD Collected: 05/10/2020 11:54 AM Ordering Location: [address] Received: 05/10/2020 12:35 PM Service Pathologist: Ruiz Retana MD Specimen: Abdominal, peritoneal mass biopsy PART A PERITONEALMASS, BIOSPY:RENAL CELL CARCINOMA.SEE DIAGNOSTIC COMMENT. Signing Pathologist Direct Phone Line: [phone] signed by Ruiz Retana MD on 05/15/2020 at 5:43 AMHistological sections demonstrate a core needle biopsy of tissue involved by partially necrotic tumor. The tumor cells have a clear cell morphology. Immunohistochemical studies performed on block A1 demonstrate the tumor cells to be positive for PAX8 and AMACR, compatible with the reported clinical history of renal cell carcinoma. [id number], [id number], 50727Tvqww is no patient history.Peritoneal massReceived in formalin [...] areevaluated Immunohistochemistry technical testing was performed at [facility], Pathology Laboratory where it was developed and [...] qualified to perform high complexity clinical laboratory testing.[facility], Department of Pathology, [address] [place] [address], [place] [address], [facility], [facility] of [facility], [address] [place] [address], [facility], [facility] of [facility], [address] [place] [address], HX, BIOPSY, [id number] 18:04:00Reason for exam:- >peritoneal mass biopsy, h/o RCCFINAL REPORT CT- guided core biopsy dated 05/10/2020 Name of practitioner performing procedure:Laura Hannah M.D. Names of patent legal assistant:None Procedure: CT-guided biopsy of omental massPreprocedure [...] MDReport Verified Date/Time: 05/10/2020 18:04:09 Reading Location: [place] [address]Y CT Body Reading Room CT biopsy [id number] 18:04:00Interface, External Ris In - 05/10/2020 6:[address]-guided core biopsy dated 05/10/2020 Name of practitioner performing procedure:Laura Hannah M.D. Names of patent legal assistant:None Procedure: CT-guided biopsy of omental mass [...] quadrant abdominal omental mass. Signed: Laura Hannah [facility] Verified Date/Time: 05/10/2020 18:04:09 Reading Location: [facility] C013Y CT [facility] 2020-[facility]-10 18:04:00Interface, External Ris In - 05/10/2020 6:[address]-guided core biopsy dated 05/10/2020 Name of practitioner performing procedure:Laura Hannah M.D. Names of patent legal assistant:None Procedure: CT-guided biopsy of omental mass Preprocedure diagnosis:History of renal cell carcinoma with masses in the abdomen Postprocedure diagnosis:Omental mass Specimens removed:Omental massEstimated blood loss:None Complication:None Conscious sedation: 1 mg Versed and [address] Laura Hannah was responsible for the moderate sedation. Total sedation time: 30 minutes Anesthesia: 1% Xylocaine local anesthesia. Graft/Implants:None Technique: This exam was performed according to our departmental dose-optimization program, which includes automated exposure control, adjustment of the mAand/or kV according to patient size and/or use of interactive reconstruction technique. After obtaining informed consent, CT-guided core biopsy of the omental mass in [...] MDReport Verified Date/Time: 05/10/2020 18:04:09 Reading Location: [facility] B1 C013Y CT Body [facility]As[facility]omatic ONLY)2020-05-10 08:23:00 Test Item Value Reference Range Interpretation Comments SARS-COV2/RT-PCR Negative Not Detected, (test code = Negative, See 39696-7) external report for linked test SARS-COV-2 [facility] PERFORMING LAB (test code = 94643-6) MATT (test code = Negative result for [...] of the Act. Fact Sheet for Healthcare Providers:https://www.[employer].com/sites/default/f alber/product/documents/F act_Sheet_HC_Providers_L rez_CUET-EmE-7.pdf Fact Sheet for Healthcare Patients:https://www.[employer]/sites/default/fi les/product/documents/Fa ct_Sheet_Patients_Lyra_S ARS-CoV-2.pdf Performing Laboratory:[facility] [place] [address] [facility] (Asymptomatic ONLY)2020-05-10 08:23:00 Test Item Value Reference Range Interpretation Comments SARS-COV2/RT-PCR Negative Not Detected, (test code = Negative, See 71271-2) external report for linked test SARS-COV-2 [facility] ALEJANDRINA PERFORMING LAB (test code = 52121-2) MATT (test code = Negative result for [...] of the Act. Fact Sheet for Healthcare Providers:https://www.[employer].com/sites/default/f alber/product/documents/F act_Sheet_HC_Providers_L peh_DTAU-WrG-7.pdf Fact Sheet for Healthcare Patients:https://www.[employer]/sites/default/fi les/product/documents/Fa ct_Sheet_Patients_Lyra_S ARS-CoV-2.pdf Performing Laboratory:[place] [address] [address]OV2/RT-PCR ([facility])2020-05-10 08:23:00 Test Item Value Reference Range Interpretation Comments SARS-COV2/RT-PCR (test Negative Not Detected, Negative, code = 4935207) See external report for linked test SARS-COV-2 PERFORMING LAB [facility] ALEJANDRINA (test code = 3817337) Negative result for this test determines that [...] 564(g) of the Act.Fact Sheet for Healthcare Providers:https://www.[employer]/sites/default/files/product/documents/Fact_Shee p_YQ_Wektoubzh_Bsfo_WEEK-AjR-3.pdfFact Sheet for Healthcare Patients:https://www.[employer]/sites/default/files/product/ documents/Ufpi_Wyypn_Cjpuknok_Olpj_XHPC-IlQ-0.pdfPerforming Laboratory:[facility], [place] [address]Xpbbtbobucw time/INR 2020-05-10 04:37:00 Test Item Value Reference [...] valves. Lab Interpretation Abnormal (test code = 10522-6) [facility] Hospital[facility]throm[facility]/[id number] 04:37:00 Test Item Value Reference Interpretation Comments [...] valves. Lab Interpretation Abnormal (test code = 18851-2) [facility] HospitalPROTHROMBIN TIME/[id number] 04:37:00 Test Item Value Reference Range Interpretation [...] 4.9 See_Comment [A utomated message] The system [employer] generated this result transmitted ref erence range: 3.5 - 10 .5 K/L. The refe rence range was not u sed to interpret this result as normal/abnor mal. RBC (test code = 789-8) 3.49 See_Comment L [Au tomated message] The system [employer] generated this result transmitted ref erence range: 4.63 - 6 .08 M/L. The refe rence range was not u sed to interpret this result as normal/abnor mal. MCHC (test code = 786-4) 32.2 See_Comment L [A utomated message] The system [employer] generated this result transmitted ref erence range: [...] L [Aut omated message] 777-3) The system [employer] generated this result transmitted ref erence range: 150 - 45 0 K/CU MM. The referen ce range was not u sed to interpret this result as normal/abnor mal. MPV (test code = 10.8 fL 9.4-12.4 05259-8) nRBC (test code = 413) 0 See_Comment [Aut omated message] The system [employer] generated this result transmitted ref erence range: 0 - 0 /1 00 WBC. The refere nce range was not u sed to interpret this result as normal/abnor mal. Lab Interpretation (test Abnormal code = 72537-2) [facility] (Hemogram only)2020-05-10 04:24:00 Test Item Value Reference Range Interpretation Comments WBC (test code = 6690-2) 4.9 See_Comment [A utomated message] The system [employer] generated this result transmitted ref erence range: 3.5 - 10 .5 K/L. The refe rence range was not u sed to interpret this result as normal/abnor mal. RBC (test code = 789-8) 3.49 See_Comment L [Au tomated message] The system [employer] generated this result transmitted ref erence range: 4.63 - 6 .08 M/L. The refe rence range was not u sed to interpret this result as normal/abnor mal. MCHC (test code = 786-4) 32.2 See_Comment L [A utomated message] The system [employer] generated this result transmitted ref erence range: [...] L [Aut omated message] 777-3) The system [employer] generated this result transmitted ref erence range: 150 - 45 0 K/CU MM. The referen ce range was not u sed to interpret this result as normal/abnor mal. MPV (test code = 10.8 fL 9.4-12.4 42512-6) nRBC (test code = 413) 0 See_Comment [Aut omated message] The system [employer] generated this result transmitted ref erence range: 0 - 0 /1 00 WBC. The refere nce range was not u sed to interpret this result as normal/abnor mal. Lab Interpretation (test Abnormal code = 82941-9) [facility] (HEMOGRAM ONLY)2020-05-10 04:24:00 Test Item Value Reference [...] 0-0 (BEAKER) (test code = 413) POC-Glucose [id number] 23:22:00 Test Item Value Reference Range Interpretation Comments POC-Glucose Meter (test 173 mg/dL 70-110 H : TE STED AT [facility] code = 1538) [address] [facility], [address] 30: Label Drier/Techni vipin ID = [id number] for GUEVARA, ADEEL TTE Lab Interpretation (test Abnormal code = 72874-5) [facility]-Glucose [id number] 23:22:00 Test Item Value Reference Range Interpretation Comments POC-Glucose Meter (test 173 mg/dL 70-110 H : TE STED AT [facility] code = 1538) [address] [facility], 770 30: Label Drier/Techni vipin ID = [id number] for GUEVARA, ADEEL TTE Lab Interpretation (test Abnormal code = 19360-2) [facility]-GLUCOSE [id number] 23:22:00 Test Item Value Reference Range Interpretation Comments POC-GLUCOSE METER 173 mg/dL 70-110 H : TESTED A T [facility] [address]20 (BEAKER) (test code = [facility], 1538) [address]: Label Drier/Techni vipin ID = [id number] for GUEVARA, ADEEL TTE [id number] 10:54:00 Test Item Value Reference Range Interpretation Comments PTT (test code = 00664-3) 34.9 See_Comment [ Automated message] The system [employer] generated this result transmitted ref erence range: 22.5 - 3 6.0 seconds. The re ference range was not u sed to interpret this result as normal/abnor mal. Lab Interpretation (test Normal code = 25998-1) [facility] HospitalaPTT2020-10-[facility] 10:54:00 Test Item Value Reference Range Interpretation Comments PTT (test code = 17171-8) 34.9 See_Comment [ Automated message] The system [employer] generated this result transmitted ref erence range: 22.5 - 3 6.0 seconds. The re ference range was not u sed to interpret this result as normal/abnor mal. Lab Interpretation (test Normal code = 98852-3) [facility] HospitalAPTT2020-10-07 10:54:00 Test Item Value Reference Range Interpretation Comments PARTIAL THROMBOPLASTIN TIME 34.9 seconds 22.5-36.0 (BEAKER) (test code = 760) PROTHROMBIN TIME/[id number] 10:53:00 Test Item Value Reference Range Interpretation [...] heart valves.CBC with platelet count + automated [id number] 10:45:00 Test Item Value Reference Range Interpretation Comments WBC (test code = 6690-2) 6.0 See_Comment [A utomated message] The system [employer] generated this result transmitted ref erence range: 3.5 - 10 .5 K/L. The refe rence range was not u sed to interpret this result as normal/abnor mal. RBC (test code = 789-8) 4.08 See_Comment L [Au tomated message] The system [employer] generated this result transmitted ref erence range: 4.63 - 6 .08 M/L. The refe rence range was not u sed to interpret this result as normal/abnor mal. MCHC (test code = 786-4) 32.4 See_Comment L [A utomated message] The system [employer] generated this result transmitted ref erence range: [...] See_Comment [Aut omated message] 777-3) The system [employer] generated this result transmitted ref erence range: 150 - 45 0 K/CU MM. The referen ce range was not u sed to interpret this result as normal/abnor mal. MPV (test code = 10.8 fL 9.4-12.4 78285-9) nRBC (test code = 413) 0 See_Comment [Aut omated message] The system [employer] generated this result transmitted ref erence range: [...] See_Comment [Aut omated message] 670) The system [employer] generated this result transmitted ref erence range: 1.78 - 5 .38 K/L. The refe rence range was not u sed to interpret this result as normal/abnor mal. # Lymphs (test code = 1.29 See_Comment L [Auto mated message] 414) The system [employer] generated this result transmitted ref erence range: 1.32 - 3 .57 K/L. The refe rence range was not u sed to interpret this result as normal/abnor mal. # Monos (test code = 0.69 See_Comment [Autom ated message] 415) The system [employer] generated this result transmitted ref erence range: 0.30 - 0 .82 K/L. The refe rence range was not u sed to interpret this result as normal/abnor mal. # Eos (test code = 416) 0.20 See_Comment [Au tomated message] The system Radario generated this result transmitted ref erence range: 0.04 - 0 .54 K/L. The refe rence range was not u sed to interpret this result as normal/abnor mal. # Baso (test code = 417) 0.04 See_Comment [A utomated message] The system Radario generated this result transmitted ref erence range: 0.01 - 0 .08 K/L. The refe rence range was not u sed to interpret this result as normal/abnor mal. Immature 0 % 0-1 Granulocytes-Relative (test code = 2801) Lab Interpretation (test Abnormal code = 73303-1) [facility] with platelet count + automated [id number] 10:45:00 Test Item Value Reference Range Interpretation Comments WBC (test code = 6690-2) 6.0 See_Comment [A utomated message] The system Radario generated this result transmitted ref erence range: 3.5 - 10 .5 K/L. The refe rence range was not u sed to interpret this result as normal/abnor mal. RBC (test code = 789-8) 4.08 See_Comment L [Au tomated message] The system Radario generated this result transmitted ref erence range: 4.63 - 6 .08 M/L. The refe rence range was not u sed to interpret this result as normal/abnor mal. MCHC (test code = 786-4) 32.4 See_Comment L [A utomated message] The system Radario generated this result transmitted ref erence range: [...] See_Comment [Aut omated message] 777-3) The system Radario generated this result transmitted ref erence range: 150 - 45 0 K/CU MM. The referen ce range was not u sed to interpret this result as normal/abnor mal. MPV (test code = 10.8 fL 9.4-12.4 59133-5) nRBC (test code = 413) 0 See_Comment [Aut omated message] The system Radario generated this result transmitted ref erence range: [...] See_Comment [Aut omated message] 670) The system Radario generated this result transmitted ref erence range: 1.78 - 5 .38 K/L. The refe rence range was not u sed to interpret this result as normal/abnor mal. # Lymphs (test code = 1.29 See_Comment L [Auto mated message] 414) The system Radario generated this result transmitted ref erence range: 1.32 - 3 .57 K/L. The refe rence range was not u sed to interpret this result as normal/abnor mal. # Monos (test code = 0.69 See_Comment [Autom ated message] 415) The system Radario generated this result transmitted ref erence range: 0.30 - 0 .82 K/L. The refe rence range was not u sed to interpret this result as normal/abnor mal. # Eos (test code = 416) 0.20 See_Comment [Au tomated message] The system Radario generated this result transmitted ref erence range: 0.04 - 0 .54 K/L. The refe rence range was not u sed to interpret this result as normal/abnor mal. # Baso (test code = 417) 0.04 See_Comment [A utomated message] The system Radario generated this result transmitted ref erence range: 0.01 - 0 .08 K/L. The refe rence range was not u sed to interpret this result as normal/abnor mal. Immature 0 % 0-1 Granulocytes-Relative (test code = 2801) Lab Interpretation (test Abnormal code = 10560-8) [facility] W/PLT COUNT & AUTO [id number] 10:45:00 Test Item Value Reference Range Interpretation [...] PERCENT (BEAKER) (test code = 2801) PROTHROMBIN [id number] 10:37:00 Test Item Value Reference Range Interpretation [...] INR is2.5-3.5 for patients wiht mechanical heart valves.[id number] 10:37:00 Test Item Value Reference Range Interpretation Comments PARTIAL THROMBOPLASTIN TIME 32.0 seconds 22.5-36.0 (BEAKER) (test code = 760) CBC W/PLT COUNT & AUTO [id number] 10:24:00 Test Item Value Reference Range Interpretation [...] PERCENT (BEAKER) (test code = 2801) PROTHROMBIN TIME/[id number] 11:43:00 Test Item Value Reference Range Interpretation [...] INR is2.5-3.5 for patients wiht mechanical heart valves.[id number] 11:43:00 Test Item Value Reference Range Interpretation Comments PARTIAL THROMBOPLASTIN TIME 23.3 seconds 22.5-36.0 (BEAKER) (test code = 760) CBC W/PLT COUNT & AUTO [id number] 11:34:00 Test Item Value Reference Range Interpretation [...] code = 2801) CT, CHEST, WITH IV [id number] 14:00:00FINAL REPORT TECHNIQUE: CT of the chest, [...] MDReport Verified Date/Time: 02/15/2020 14:00:05 Reading Location: [address] Consult Reading Room CT, [id number] 14:00:00FINAL REPORT TECHNIQUE: CT of the chest, [...] MDReport Verified Date/Time: 02/15/2020 14:00:05 Reading Location: [facility] B1 C013X Ortho Consult Reading Room -[id number] 14:53:00 Test Item Value Reference Range Interpretation Comments POC-CREATININE 0.8 mg/dL 0.6-1.3 TESTED AT [facility] 7200 ([facility]) (test GAVIN BLD G A code = 1859) [facility] 7703 0 POC-EGFR 121 mL/min/1.73M2 ([facility]) (test code = 1860) CT, CHEST, WITH IV [id number] 10:23:00FINAL REPORT CT scan of the chest, [...] recurrent disease.3. No other significant change. Signed:Eleno [place] Verified Date/Time: 08/01/2019 10:23:19 Reading Location: [address] Body Reading Room S HOSPITAL, [id number] 10:23:00FINAL REPORT CT scan of the chest, [...] MDReport Verified Date/Time: 08/01/2019 10:23:19 Reading Location: [facility] C013Y CT Body Reading Room CT, [id number] 12:48:00Reason for Exam:->cancer of right kidneyFINAL REPORT [...] MDReport Verified Date/Time: 05/03/2019 12:48:10 Reading Location: [address] Consult Reading Room CT, CHEST, WITH IV [id number] 12:48:00Restaging RCCReason for Exam:->cancer of right kidneyFINAL [...] MDReport Verified Date/Time: 05/03/2019 12:48:10 Reading Location: [address] Consult Reading Room [id number] 08:42:00 Test Item Value Reference Range Interpretation Comments POC-CREATININE 0.7 mg/dL 0.6-1.3 TESTED AT [facility] 7200 (ANJALI) (test GAVIN BLD G A code = 1859) [facility] 7703 0 POC-EGFR 141 mL/min/1.73M2 (ANJALI) (test code = 1860) CT, [id number] 12:11:00FINAL REPORT EXAM: CT Chest, Abdomen and [...] MDReport Verified Date/Time: 12/24/2018 12:11:19 Reading Location: [facility] Reading Room [address] [place] [address] CT, CHEST, WITH IV [id number] 12:11:00FINAL REPORT EXAM: CT Chest, Abdomen and [...] Tavares Verified Date/Time: 12/24/2018 12:11:19 Reading Location: [address] Reading Room [address] [place] [address] RAD, CHEST, 2 [id number] 11:57:00Reason for Exam:->Z85.528FINAL REPORT EXAM: PA and [...] Chong Verified Date/Time: 12/23/2018 11:57:24 Reading Location: [address] Reading Room [address] [place] [address] [id number] 11:35:00 Test Item Value Reference Range Interpretation Comments POC-CREATININE 0.8 mg/dL 0.6-1.3 TESTED AT [facility] 7200 (ANJALI) (test GAVIN BLD G A code = 1859) [facility] 7703 0 POC-EGFR 121 mL/min/1.73M2 (ANJALI) (test code = 1860) TISSUE [id number] 09:12:00Surgical Pathology Report Case: [id number] Authorizing Provider: Abhijeet Mahmood MD Collected: 10/19/2018 9206 Ordering Location: [facility] PERIOPERATIVE Received: 10/19/2018 0257 SERVICES Pathologist: Cm Modi MD Specimens: A) [...] SYNOPTIC REPORT) Signing Pathologist Direct Phone Line: [phone] signed by Cm Modi MD on 11/01/2018 [...] Pathologic Findings in Nonneoplastic Kidney: Insufficient tissue 13698, 58320H0, 35617, 16493, 99661i2Sraru massA. Hilar lymph node; B. Retroperitoneal lymph [...] the adipose and kidney parenchyma present grossly. Candy [employer]er sections of tumorand surrounding tissue are submitted in D1 to D8. SB/Eunice, RIGHT, BASE OF TUMOR: - FIBROMUSCULAR AND ADIPOSE TISSUE - NO OVERT TUMOR IS SEENThese results were reported to Dr. Mahmood in OR-[address] Modi at 6 p.m., on October 19, 2018. Performed.The interpretation of this case included the use of immunohistochemistry or special stains.On D7: [place]-8, Cam5.2, CK7, Ki-67, AMCARImmunohistochemistry technical testing was performed at [facility], Pathology Laboratory where it was developed and [...] complexity clinical laboratory testing.SPUTUM CULTURE + GRAM [id number] 09:23:00 Test Item Value Reference Range Interpretation Comments CULTURE (BEAKER) 4+ Normal respiratory (test code = 1095) david present GRAM STAIN RESULT <1+ WBCs (BEAKER) (test code = 1123) GRAM STAIN RESULT 0-5 epithelial cells (BEAKER) (test code = 86875) GRAM STAIN RESULT 1+ gram positive cocci (BEAKER) (test code = in chains, pairs and 89526) clusters POCT-GLUCOSE [id number] 16:57:00 Test Item Value Reference Range Interpretation Comments POC-GLUCOSE METER 246 mg/dL 70-110 H TESTED AT [facility] 6720 (BEAKER) (test code = [facility] 1538) [address] POCT-GLUCOSE [id number] 12:56:00 Test Item Value Reference Range Interpretation Comments POC-GLUCOSE METER 238 mg/dL 70-110 H TESTED AT [facility] 6720 (BEAKER) (test code = [facility] 1538) [address] CBC W/PLT COUNT & AUTO [id number] 08:28:00 Test Item Value Reference Range Interpretation [...] 0-1 PERCENT (BEAKER) (test code = 2801) [id number] 08:26:00 Test Item Value Reference Range Interpretation Comments PHOSPHORUS (BEAKER) (test code = 3.4 mg/dL 2.3-4.7 604) [id number] 08:26:00 Test Item Value Reference Range Interpretation Comments MAGNESIUM (BEAKER) (test code = 1.9 mg/dL 1.6-2.6 627) BASIC METABOLIC [id number] 08:26:00 Test Item Value Reference Range Interpretation [...] NOT APPLICABLE FOR DIALYSIS PATIEN TS. POCT-GLUCOSE [id number] 21:52:00 Test Item Value Reference Range Interpretation Comments POC-GLUCOSE METER 130 mg/dL 70-110 H TESTED AT [facility] 67[address] [facility] (test code = ELIAS Melgoza [place] 1538) [address] POCT-GLUCOSE [id number] 16:41:00 Test Item Value Reference Range Interpretation Comments POC-GLUCOSE METER 242 mg/dL 70-110 H TESTED AT [facility] 6720 ([facility]) (test code = [facility] Rhona [facility] 1538) [address] RAD, CHEST, 1 VIEW, NON [id number] 15:52:00Reason for exam:->eval for pulmonary edemaShould this [...] MDReport Verified Date/Time: 10/25/2018 15:52:14 Reading Location: [facility] C013W Consult Reading Room POCT-GLUCOSE [id number] 11:57:00 Test Item Value Reference Range Interpretation Comments POC-GLUCOSE METER 202 mg/dL 70-110 H TESTED AT [facility] 6720 (BEAKER) (test code = [facility] 1538) [address] POCT-GLUCOSE [id number] 08:32:00 Test Item Value Reference Range Interpretation Comments POC-GLUCOSE METER 179 mg/dL 70-110 H TESTED AT [facility] 6720 (BEAKER) (test code = [facility] 1538) [address] [id number] 07:11:00 Test Item Value Reference Range Interpretation Comments PHOSPHORUS (BEAKER) (test code = 3.3 mg/dL 2.3-4.7 604) [id number] 07:11:00 Test Item Value Reference Range Interpretation Comments MAGNESIUM (BEAKER) (test code = 1.7 mg/dL 1.6-2.6 627) BASIC METABOLIC [id number] 07:11:00 Test Item Value Reference Range Interpretation [...] PATIEN TS. CBC W/PLT COUNT & AUTO [id number] 06:57:00 Test Item Value Reference Range Interpretation [...] code = 2801) SPUTUM CULTURE + GRAM [id number] 01:06:00 Test Item Value Reference Range Interpretation Comments CULTURE (BEAKER) Oropharyngeal (test code = 1095) contamination, specimen rejected. Recollect requested. GRAM STAIN RESULT <1+ WBCs (BEAKER) (test code = 1123) GRAM STAIN RESULT >25 epithelial cells (BEAKER) (test code = 04259) GRAM STAIN RESULT <1+ gram negative rods (BEAKER) (test code = 75905) GRAM STAIN RESULT 1+ gram positive rods (BEAKER) (test code = 037247) GRAM STAIN RESULT 4+ gram positive cocci in (BEAKER) (test code chains, pairs and = 265718) clusters POCT-GLUCOSE [id number] 18:16:00 Test Item Value Reference Range Interpretation Comments POC-GLUCOSE METER 173 mg/dL 70-110 H TESTED AT [facility] 6720 (BEAKER) (test code = ELIAS Melgoza [facility] 1538) [address] RAD, CHEST, 1 VIEW, NON [id number] 15:21:00Reason for exam:->SOBShould this be performed at the bedside?->YesFINAL REPORT AP chest HISTORY: Shortness of breath COMPARISON: 10/23/2017 IMPRESSION:Intact skeleton. Heart size normal. Bibasilar atelectasis. No pneumothorax. Signed: Jeremy Dougherty Verified Date/Time: 10/24/2018 15:21:04 Reading Location: [address] Reading Room POCT-GLUCOSE [id number] 12:58:00 Test Item Value Reference Range Interpretation Comments POC-GLUCOSE METER 315 mg/dL 70-110 H TESTED AT [facility] 6720 (BEAKER) (test code = [place] 1538) [address] [id number] 07:04:00 Test Item Value Reference Range Interpretation Comments PHOSPHORUS (BEAKER) (test code = 4.1 mg/dL 2.3-4.7 604) [id number] 07:04:00 Test Item Value Reference Range Interpretation Comments MAGNESIUM (BEAKER) (test code = 1.7 mg/dL 1.6-2.6 627) BASIC METABOLIC [id number] 07:04:00 Test Item Value Reference Range Interpretation [...] PATIEN TS. CBC W/PLT COUNT & AUTO [id number] 06:56:00 Test Item Value Reference Range Interpretation [...] PERCENT (BEAKER) (test code = 2801) POCT-GLUCOSE [id number] 21:33:00 Test Item Value Reference Range Interpretation Comments POC-GLUCOSE METER 195 mg/dL 70-110 H TESTED AT [facility] 6720 ([facility]) (test code = [place] 1538) [address] RAD, ABDOMEN/KUB, 1 VIEW [id number] 20:09:00Reason for exam:->abdominal distentionShould this be performed [...] Palumbo Verified Date/Time: 10/23/2018 20:09:42 Reading Location: [address] Body ReadingRoom POCT-GLUCOSE [id number] 16:49:00 Test Item Value Reference Range Interpretation Comments POC-GLUCOSE METER 311 mg/dL 70-110 H TESTED AT [place] [address] ([facility]) (test code = ELIAS Melgoza [facility] 1538) [address] POCT-GLUCOSE [id number] 13:44:00 Test Item Value Reference Range Interpretation Comments POC-GLUCOSE METER 239 mg/dL 70-110 H TESTED AT [place] [address] ([facility]) (test code = ELIAS Melgoza [facility] 1538) [address] RAD, CHEST, 1 VIEW, NON [id number] 08:59:00Reason for exam:->SOBShould this be performed at [...] Dang Verified Date/Time: 10/23/2018 08:59:13 Reading Location: [place] [address]V Neuro Reading Room Electronicallysigned by: BLANCHE DANG MD on 10/23/2018 08:59 AMPOCT-GLUCOSE [id number] 08:09:00 Test Item Value Reference Range Interpretation Comments POC-GLUCOSE METER 185 mg/dL 70-110 H TESTED AT [facility] 6720 (BEAKER) (test code = [place] 1538) [address] [id number] 06:28:00 Test Item Value Reference Range Interpretation Comments PHOSPHORUS (BEAKER) (test code = 3.1 mg/dL 2.3-4.7 604) [id number] 06:28:00 Test Item Value Reference Range Interpretation Comments MAGNESIUM (BEAKER) (test code = 1.7 mg/dL 1.6-2.6 627) BASIC METABOLIC [id number] 06:28:00 Test Item Value Reference Range Interpretation [...] APPLICABLE FOR DIALYSIS PATIEN TS. HEMOGLOBIN AND [id number] 05:24:00 Test Item Value Reference Range Interpretation Comments HEMOGLOBIN (BEAKER) (test code = 9.3 GM/DL 13.7-17.5 L 410) HEMATOCRIT (BEAKER) (test code = 29.8 % 40.1-51.0 L 411) CREATININE, BODY [id number] 01:47:00 Test Item Value Reference Range Interpretation Comments CREATININE FLUID (BEAKER) (test 0.91 mg/dL code = 677) Reference Range: No Normals Assay performance has not been validated for this type of specimen.Please place ostomy bag over midline wound to collect fluid to send for CreatininePOCT-GLUCOSE [id number] 21:35:00 Test Item Value Reference Range Interpretation Comments POC-GLUCOSE METER 213 mg/dL 70-110 H TESTED AT [facility] 6720 (BEAKER) (test code = ELIAS Melgo[place] 1538) [address] POCT-GLUCOSE [id number] 19:01:00 Test Item Value Reference Range Interpretation Comments POC-GLUCOSE METER 202 mg/dL 70-110 H TESTED AT [facility] 6720 (BEAKER) (test code = ELIAS Melgo[place] 1538) [address] [id number] 15:55:00 Test Item Value Reference Range Interpretation Comments PARTIAL THROMBOPLASTIN TIME 38.0 seconds 22.5-36.0 H (BEAKER) (test code = 760) PROTHROMBIN [id number] 15:54:00 Test Item Value Reference Range Interpretation Comments PROTIME (BEAKER) (test code = 15.4 seconds 11.7-14.7 H 759) INR (BEAKER) (test code = 370) 1.2 <=5.9 RECOMMENDED COUMADIN/WARFARIN INR THERAPY RANGESSTANDARD DOSE: 2.0 - 3.0 Includes: PROPHYLAXIS forvenous thrombosis, systemic embolization; TREATMENT for venous thrombosis and/or pulmonary embolus.HIGH RISK: Target INR is 2.5-3.5 for patients with mechanical heart valves.[id number] 15:44:00 Test Item Value Reference Range Interpretation Comments MAGNESIUM (BEAKER) 2.0 mg/dL 1.6-2.6 Specimen slightly (test code = 627) hemolyzed BASIC METABOLIC [id number] 15:44:00 Test Item Value Reference Range Interpretation [...] APPLICABLE FOR DIALYSIS PATIEN TS. HEMOGLOBIN AND [id number] 15:31:00 Test Item Value Reference Range Interpretation Comments HEMOGLOBIN (BEAKER) (test code = 9.5 GM/DL 13.7-17.5 L 410) HEMATOCRIT (BEAKER) (test code = 29.8 % 40.1-51.0 L 411) POCT-GLUCOSE [id number] 13:55:00 Test Item Value Reference Range Interpretation Comments POC-GLUCOSE METER 252 mg/dL 70-110 H TESTED AT [facility] 6720 (BEAKER) (test code = ELIAS Melgo[place] 1538) [address] HEPATIC FUNCTION [id number] 11:12:00 Test Item Value Reference Range Interpretation [...] 6-55 347) RAD, CHEST, 1 VIEW, NON [id number] 09:35:00Reason for exam:->SOBShould this be performed at the bedside?->YesFINAL REPORT Portable chest. CLINICAL HISTORY: SOB. COMPARISON STUDY: Chest x-ray from yesterday. FINDINGS: The cardiac silhouette is enlarged. The pulmonary parenchyma demonstrates increased interstitial and atelectatic changes, similar to previous. No pneumothorax is seen. Degenerative changes are noted. IMPRESSION: No significant change. Signed: Eleno [place] Verified Date/Time: 10/22/2018 09:35:30 Reading Location: [facility] Radiology Reading Room POCT-GLUCOSE [id number] 07:52:00 Test Item Value Reference Range Interpretation Comments POC-GLUCOSE METER 161 mg/dL 70-110 H TESTED AT [facility] 6720 (BEAKER) (test code = [place] 1538) [address] [id number] 05:48:00 Test Item Value Reference Range Interpretation Comments PHOSPHORUS (BEAKER) (test code = 2.6 mg/dL 2.3-4.7 604) [id number] 05:48:00 Test Item Value Reference Range Interpretation Comments MAGNESIUM (BEAKER) (test code = 1.8 mg/dL 1.6-2.6 627) BASIC METABOLIC [id number] 05:48:00 Test Item Value Reference Range Interpretation [...] APPLICABLE FOR DIALYSIS PATIEN TS. HEMOGLOBIN AND [id number] 05:04:00 Test Item Value Reference Range Interpretation Comments HEMOGLOBIN (MARCI) (test code = 8.7 GM/DL 13.7-17.5 L 410) HEMATOCRIT ([facility]) (test code = 27.9 % 40.1-51.0 L 411) POCT-GLUCOSE [id number] 21:42:00 Test Item Value Reference Range Interpretation Comments POC-GLUCOSE METER 176 mg/dL 70-110 H TESTED AT [facility] 67 ([facility]) (test code = ELIAS Melgoza [facility] 1538) [address] RAD, CHEST, 2 [id number] 20:45:00Reason for exam:->Pre-opShould this be performed at [...] MDReport Verified Date/Time: 10/21/2018 20:45:31 Reading Location: [address] Reading Room POCT-GLUCOSE [id number] 18:43:00 Test Item Value Reference Range Interpretation Comments POC-GLUCOSE METER 237 mg/dL 70-110 H TESTED AT [facility] 67 ([facility]) (test code = ELIAS Melgoza [facility] 1538) [address] [id number] 16:57:00 Test Item Value Reference Range Interpretation Comments PARTIAL THROMBOPLASTIN TIME 37.9 seconds 22.5-36.0 H ([facility]) (test code = 760) Draw at 4pm pleaseDraw at 4pm pleasePROTHROMBIN [id number] 16:55:00 Test Item Value Reference Range Interpretation [...] 4pm pleaseDraw at 4pm please HEMOGLOBIN AND [id number] 16:43:00 Test Item Value Reference Range Interpretation Comments HEMOGLOBIN (BEAKER) (test code = 9.4 GM/DL 13.7-17.5 L 410) HEMATOCRIT (BEAKER) (test code = 30.8 % 40.1-51.0 L 411) Draw at 4pm pleasePOCT-GLUCOSE [id number] 14:06:00 Test Item Value Reference Range Interpretation Comments POC-GLUCOSE METER 193 mg/dL 70-110 H TESTED AT [facility] 6720 (BEAKER) (test code = ELIAS Melgo[place] 1538) [address] [id number] 10:38:00 Test Item Value Reference Range Interpretation Comments PHOSPHORUS (BEAKER) (test code = 3.2 mg/dL 2.3-4.7 604) [id number] 10:38:00 Test Item Value Reference Range Interpretation Comments MAGNESIUM (BEAKER) (test code = 2.0 mg/dL 1.6-2.6 627) BASIC METABOLIC [id number] 10:38:00 Test Item Value Reference Range Interpretation Comments SODIUM (BEAKER) 137 meq/L 136-145 (test code = 381) POTASSIUM (BEAKER) 4.4 meq/L 3.5-5.1 (test code = 379) CHLORIDE (BEAKER) 108 meq/L 98-107 H (test code = 382) CO2 (BEAKER) (test 19 meq/L 22-29 L code = 355) BLOOD UREA NITROGEN 11 mg/dL 7-21 (BEAKER) (test code = 354) CREATININE (BEAKER) 1.29 mg/dL 0.57-1.25 H (test code = 358) GLUCOSE RANDOM 137 mg/dL 70-105 H (BEAKER) (test code = 652) CALCIUM (BEAKER) 9.0 mg/dL 8.4-10.2 (test code = 697) EGFR (BEAKER) (test 70 mL/min/1.73 ESTIMA ARIELLE GFR IS code = 1092) sq m NOT ACCURATE CREATININE CLEARANCE IN PREDICTING GLOMERULAR FILTRATION RATE . ESTIMATED GFR I S NOT APPLICABLE FOR DIALYSIS PATIEN TS. HEMOGLOBIN AND [id number] 08:59:00 Test Item Value Reference Range Interpretation Comments HEMOGLOBIN (BEAKER) (test code = 9.2 GM/DL 13.7-17.5 L 410) HEMATOCRIT (BEAKER) (test code = 29.0 % 40.1-51.0 L 411) POCT-GLUCOSE [id number] 07:58:00 Test Item Value Reference Range Interpretation Comments POC-GLUCOSE METER 170 mg/dL 70-110 H TESTED AT [place] [address] ([facility]) ([facility] = [facility] 1538) [address] POCT-GLUCOSE [id number] 00:50:00 Test Item Value Reference Range Interpretation Comments POC-GLUCOSE METER 214 mg/dL 70-110 H TESTED AT [place] [address] ([facility]) (test [facility] = [facility] 1538) [address] POCT-GLUCOSE [id number] 17:28:00 Test Item Value Reference Range Interpretation Comments POC-GLUCOSE METER 260 mg/dL 70-110 H TESTED AT [place] [address] ([facility]) (test code = [facility] [place] 1538) [address] [id number] 16:02:00 Test Item Value Reference Range Interpretation Comments MAGNESIUM (BEAKER) (test code = 1.5 mg/dL 1.6-2.6 L 627) POCT-GLUCOSE [id number] 14:49:00 Test Item Value Reference Range Interpretation Comments POC-GLUCOSE METER 248 mg/dL 70-110 H TESTED AT [place] [address] ([facility]) (test code = [facility] [place] 1538) [address] BASIC METABOLIC [id number] 07:27:00 Test Item Value Reference Range Interpretation [...] APPLICABLE FOR DIALYSIS PATIEN TS. HEMOGLOBIN AND [id number] 06:39:00 Test Item Value Reference Range Interpretation Comments HEMOGLOBIN (BEAKER) (test code = 9.9 GM/DL 13.7-17.5 L 410) HEMATOCRIT (BEAKER) (test code = 31.7 % 40.1-51.0 L 411) POCT-GLUCOSE [id number] 06:29:00 Test Item Value Reference Range Interpretation Comments POC-GLUCOSE METER 205 mg/dL 70-110 H TESTED AT [facility] 6720 (BEAKER) (test code = [facility] 1538) [address] POCT-GLUCOSE [id number] 22:44:00 Test Item Value Reference Range Interpretation Comments POC-GLUCOSE METER 234 mg/dL 70-110 H TESTED AT [facility] 6720 (BEAKER) (test code = [facility] 1538) [address] BASIC METABOLIC [id number] 20:57:00 Test Item Value Reference Range Interpretation [...] APPLICABLE FOR DIALYSIS PATIEN TS. HEMOGLOBIN AND [id number] 20:39:00 Test Item Value Reference Range Interpretation Comments HEMOGLOBIN (BEAKER) (test code = 10.2 GM/DL 13.7-17.5 L 410) HEMATOCRIT (BEAKER) (test code = 31.8 % 40.1-51.0 L 411) POCT-GLUCOSE [id number] 20:19:00 Test Item Value Reference Range Interpretation Comments POC-GLUCOSE METER 221 mg/dL 70-110 H TESTED AT [facility] 6720 (BEAKER) (test code = ELIAS Melgoza [facility] 1538) [address] CALCIUM, [id number] 18:02:00 Test Item Value Reference Range Interpretation Comments CALCIUM IONIZED (BEAKER) (test 1.01 mmol/L 1.12-1.27 L code = 698) PH, BLOOD (BEAKER) (test code = 7.38 1810) BLOOD GAS, [id number] 18:02:00 Test Item Value Reference Range Interpretation [...] 37.0 C (test code = 1818) POTASSIUM-STAT [id number] 18:02:00 Test Item Value Reference Range Interpretation Comments POTASSIUM (BEAKER) (test code = 3.2 meq/L 3.6-5.5 L 379) GLUCOSE-STAT [id number] 18:02:00 Test Item Value Reference Range Interpretation Comments GLUCOSE RANDOM (BEAKER) (test code 164 mg/dL 70-110 H = 652) HGB/HCT (H&H) - STAT [id number] 18:02:00 Test Item Value Reference Range Interpretation Comments HEMOGLOBIN (BEAKER) (test code = 9.6 g/dL 13.0-16.8 L 410) HEMATOCRIT (BEAKER) (test code = 28.0 % 40.0-50.0 L 411) SODIUM NA-STAT [id number] 18:01:00 Test Item Value Reference Range Interpretation Comments SODIUM (BEAKER) (test code = 381) 136 meq/L 135-148 CALCIUM, [id number] 15:06:00 Test Item Value Reference Range Interpretation Comments CALCIUM IONIZED (BEAKER) (test 1.08 mmol/L 1.12-1.27 L code = 698) PH, BLOOD (BEAKER) (test code = 7.46 1810) BLOOD GAS, [id number] 15:06:00 Test Item Value Reference Range Interpretation [...] (test 37.0 C code = 1818) GLUCOSE-STAT [id number] 15:06:00 Test Item Value Reference Range Interpretation Comments GLUCOSE RANDOM (BEAKER) (test code 117 mg/dL 70-110 H = 652) HGB/HCT (H&H) - STAT [id number] 15:06:00 Test Item Value Reference Range Interpretation Comments HEMOGLOBIN (BEAKER) (test code = 10.9 g/dL 13.0-16.8 L 410) HEMATOCRIT (BEAKER) (test code = 32.0 % 40.0-50.0 L 411) SODIUM NA-STAT [id number] 15:05:00 Test Item Value Reference Range Interpretation Comments SODIUM (BEAKER) (test code = 381) 139 meq/L 135-148 POTASSIUM-STAT [id number] 15:05:00 Test Item Value Reference Range Interpretation Comments POTASSIUM (BEAKER) (test code = 3.6 meq/L 3.6-5.5 379) [id number] 12:05:00 Test Item Value Reference Range Interpretation Comments SODIUM (BEAKER) (test 139 meq/L 136-145 code = 381) POTASSIUM (BEAKER) 4.3 meq/L 3.5-5.1 Specimen slightly (test code = 379) hemolyzed CHLORIDE (BEAKER) 104 meq/L 98-107 (test code = 382) CO2 (BEAKER) (test 25 meq/L 22-29 code = 355) BUN AND [id number] 12:05:00 Test Item Value Reference Range Interpretation [...] S NOT APPLICABLE FOR DIALYSIS PATIEN TS. [id number] 11:46:00 Test Item Value Reference Range Interpretation Comments HEMOGLOBIN (BEAKER) (test code = 11.5 GM/DL 13.7-17.5 L 410) POCT-GLUCOSE [id number] 11:19:00 Test Item Value Reference Range Interpretation Comments POC-GLUCOSE METER 133 mg/dL 70-110 H TESTED AT [facility] 6720 (BEAKER) (test code = ELIAS [place] 1538) [address] POCT-GLUCOSE [id number] 14:25:00 Test Item Value Reference Range Interpretation Comments POC-GLUCOSE METER 366 mg/dL 70-110 H Baby teste d Mother ID (BEAKER) (test code = used/T ESTED AT [facility] 1538) [address] [place] [address] POCT-GLUCOSE [id number] 07:42:00 Test Item Value Reference Range Interpretation Comments POC-GLUCOSE METER 237 mg/dL 70-110 H TESTED AT [facility] 6720 (BEAKER) (test code = ELIAS Melgoza [place] 1538) [address] BASIC METABOLIC [id number] 05:07:00 Test Item Value Reference Range Interpretation [...] 40.1-51.0 L 411) MEAN CORPUSCULAR VOLUME (BEAKER) 92.3 fL 79.0-92.2 H (test code = 753) MEAN CORPUSCULAR HEMOGLOBIN 28.3 pg 25.7-32.2 ([facility]) (test code = 751) MEAN CORPUSCULAR HEMOGLOBIN CONC 30.7 GM/DL 32.3-36.5 L ([facility]) (test code = 752) RED CELL DISTRIBUTION WIDTH 14.4 % 11.6-14.4 ([facility]) (test code = 412) PLATELET COUNT ([facility]) (test 347 K/CU MM 150-450 code = 756) MEAN PLATELET VOLUME ([facility]) 10.7 fL 9.4-12.4 (test code = 754) NUCLEATED RED BLOOD CELLS 0 /100 WBC 0-0 ([facility]) (test code = 413) POCT-GLUCOSE [id number] 22:48:00 Test Item Value Reference Range Interpretation Comments POC-GLUCOSE METER 166 mg/dL 70-110 H TESTED AT [place] [address] ([facility]) (test code = ELIAS Melgoza [place] 1538) [address] [id number] 21:21:00 Test Item Value Reference Range Interpretation Comments ACTIVATED CLOTTING TIME 268 sec TEST ED AT [place] [address] ([facility]) (test code = ELIAS Melgoza [place] 441) [address] POCT-GLUCOSE [id number] 17:32:00 Test Item Value Reference Range Interpretation Comments POC-GLUCOSE METER 164 mg/dL 70-110 H TESTED AT [place] [address] ([facility]) (test code = ELIAS Melgoza [place] 1538) [address] POCT-GLUCOSE [id number] 12:02:00 Test Item Value Reference Range Interpretation Comments POC-GLUCOSE METER 220 mg/dL 70-110 H TESTED AT [place] [address] ([facility]) (test code = ELIAS Melgoza [place] 1538) [address] POCT-GLUCOSE [id number] 08:11:00 Test Item Value Reference Range Interpretation Comments POC-GLUCOSE METER 228 mg/dL 70-110 H TESTED AT [place] [address] ([facility]) (test code = ELIAS Melgoza [place] 1538) [address] LACTATE DEHYDROGENASE (LDH)2018-07-15 06:51:00 Test Item Value Reference Range Interpretation Comments LACTATE DEHYDROGENASE ([facility]) (test 262 U/L 125-220 H code = 635) POCT-GLUCOSE [id number] 06:06:00 Test Item Value Reference Range Interpretation Comments POC-GLUCOSE METER 186 mg/dL 70-110 H TESTED AT [place] [address] ([facility]) (test code = ELIAS Melgoza [facility] 1538) [address] BLOOD [id number] 05:01:00 Test Item Value Reference Range Interpretation Comments CULTURE ([facility]) (test No growth in 5 days code = 1095) BLOOD [id number] 05:01:00 Test Item Value Reference Range Interpretation Comments CULTURE ([facility]) (test No growth in 5 days code = 1095) POCT-GLUCOSE [id number] 21:38:00 Test Item Value Reference Range Interpretation Comments POC-GLUCOSE METER 267 mg/dL 70-110 H TESTED AT [place] [address] ([facility]) (test code = ELIAS Melgoza [facility] 1538) [address] POCT-GLUCOSE [id number] 17:28:00 Test Item Value Reference Range Interpretation Comments POC-GLUCOSE METER 405 mg/dL 70-110 HH Notified R Damián PRICE/TESTED ([facility]) (test code = AT [address] 1538) [facility] 7703 0 PET, CARDIAC PERFUSION MULTIPLE STUDIES, REST AND [id number] 12:29:00 Reason for exam:->preoperative risk stratficationFINAL REPORT PROCEDURE: Rest/Stress MYOCARDIAL PERFUSION PET with regadenos on\\XA9\\ CPT CODE: 05400 INDICATION: Preoperative risk stratification for renal mass [...] Heart rate was 90 beats/min at rest zix383 beats/min (66% of MPHR) at tracer injection. [...] tracer distribution is normal. 6. No previous [facility] study for comparison. Signed: Toya Spangler MDReport Verified Date/Time: 07/14/2018 12:29:37 Reading Location: [address] POCT-GLUCOSE [id number] 11:42:00 Test Item Value Reference Range Interpretation Comments POC-GLUCOSE METER 166 mg/dL 70-110 H TESTED AT [facility] 3664 ([facility]) (test code = [place] 1538) [address] CBC W/PLT COUNT & AUTO [id number] 08:21:00 Test Item Value Reference Range Interpretation Comments WHITE BLOOD CELL COUNT ([facility]) 8.8 K/ L 3.5-10.5 (test code = 775) RED BLOOD CELL COUNT ([facility]) 3.05 M/ L 4.63-6.08 L (test code = 761) HEMOGLOBIN ([facility]) (test code = 8.6 GM/DL 13.7-17.5 L 410) HEMATOCRIT ([facility]) (test code = 27.4 % 40.1-51.0 L [...] 3438) Received comment: User comments: Slide comments:POCT-GLUCOSE [id number] 21:26:00 Test Item Value Reference Range Interpretation Comments POC-GLUCOSE METER 279 mg/dL 70-110 H TESTED AT [facility] 6720 (BEAKER) (test code = ELIAS Melgoza [facility] 1538) [address] MR, ABDOMEN, [id number] 19:30:00FINAL REPORT MRI of the abdomen. CLINICAL [...] other etiologies such as masses. Signed: Eleno [place] Verified Date/Time: 07/13/2018 19:30:45 Reading Location: [address] Consult Reading Room Electronically signed by: ELENO HUTTON M.D. on 07/03 07:30 PMPOCT-GLUCOSE [id number] 16:36:00 Test Item Value Reference Range Interpretation Comments POC-GLUCOSE METER 260 mg/dL 70-110 H TESTED AT [address]) (test code = ELIAS Melgoza [facility] 1538) [address] POCT-GLUCOSE [id number] 12:41:00 Test Item Value Reference Range Interpretation Comments POC-GLUCOSE METER 284 mg/dL 70-110 H TESTED AT [place] [address] ([facility]) (test code = [facility] 1538) [address] POCT-GLUCOSE [id number] 08:34:00 Test Item Value Reference Range Interpretation Comments POC-GLUCOSE METER 196 mg/dL 70-110 H TESTED AT [address] (test code = [place] [facility] 1538) [address] POCT-GLUCOSE [id number] 21:17:00 Test Item Value Reference Range Interpretation Comments POC-GLUCOSE METER 323 mg/dL 70-110 H Patient on insulin (ANJALI) (test code = Drip/T ESTED AT [facility] 1538) [address] [place] [address] POCT-GLUCOSE [id number] 17:51:00 Test Item Value Reference Range Interpretation Comments POC-GLUCOSE METER 256 mg/dL 70-110 H TESTED AT [facility] 6720 (ANJALI) (test code = [place] 1538) [address] CT, [id number] 16:00:00FINAL REPORT CT scan of the abdomen [...] Hutton Verified Date/Time: 07/12/2018 16:00:46 Reading Location: [facility] C013X Ortho Consult Reading Room U/S, [id number] 14:52:00Reason for exam:->re-evaluate prostatic abscesShould this be [...] Pierson Verified Date/Time: 07/12/2018 14:52:29 Reading Location: [facility] P006J Ultrasound Reading Room CT, CHEST, WITH [id number] 14:22:00Addendum BeginsREPORT STATUS:A There is a hyperenhancing focus in segment II which measures 1 cm on axial image 38. This was discussed with Dr. Bueno on 07/12/2018 at 2:21 PM. Sign ed: Diomedes Stewartort Verified Date/Time: 07/12/2018 14:22:13 Reading Location: [facility] C013Y CT Body Reading RoomAddendum EndsFINAL REPORT [...] this would be helpful. Signed: Diomedes Stewart MDReport Verified Date/Time: 07/11/2018 09:17:12 Reading Location: [facility] C013Y CT Body Reading Room -GLUCOSE [id number] 14:01:00 Test Item Value Reference Range Interpretation Comments POC-GLUCOSE METER 246 mg/dL 70-110 H TESTED AT [place] [address] ([facility]) (test code = [facility] 1538) [address] POCT-GLUCOSE [id number] 20:43:00 Test Item Value Reference Range Interpretation Comments POC-GLUCOSE METER 277 mg/dL 70-110 H TESTED AT [place] [address] ([facility]) (test code = [facility] 1538) [address] POCT-GLUCOSE [id number] 17:05:00 Test Item Value Reference Range Interpretation Comments POC-GLUCOSE METER 283 mg/dL 70-110 H TESTED AT [place] [address] ([facility] (test code = [facility] 1538) [address] POCT-GLUCOSE [id number] 11:30:00 Test Item Value Reference Range Interpretation Comments POC-GLUCOSE METER 253 mg/dL 70-110 H TEST[facility] AT [place] [address] [facility] (test code = ELIAS Melgoza [facility] 1538) [address] POCT-GLUCOSE [id number] 07:49:00 Test Item Value Reference Range Interpretation Comments POC-GLUCOSE METER 209 mg/dL 70-110 H TESTED AT [place] [address] ([facility] (test code = ELIAS Melgoza [facility] 1538) [address] POCT-GLUCOSE [id number] 21:13:00 Test Item Value Reference Range Interpretation Comments POC-GLUCOSE METER 243 mg/dL 70-110 H TESTED AT [place] [address] ([facility]) (test code = ELIAS Melgoza [facility] 1538) [address] URINE [id number] 15:31:00 Test Item Value Reference Range Interpretation Comments CULTURE (BEAKER) (test code = 1095) No growth POCT-GLUCOSE [id number] 12:17:00 Test Item Value Reference Range Interpretation Comments POC-GLUCOSE METER 283 mg/dL 70-110 H TESTED AT [place] [address] ([facility] (test code = ELIAS Melgoza [facility] 1538) [address] BASIC METABOLIC [id number] 08:34:00 Test Item Value Reference Range Interpretation [...] 0-0 (BEAKER) (test code = 413) POCT-GLUCOSE [id number] 08:04:00 Test Item Value Reference Range Interpretation Comments POC-GLUCOSE METER 202 mg/dL 70-110 H TESTED AT [facility] 6720 ([facility]) (test code = ELIAS Melgoza [facility] 1538) [address] POCT-GLUCOSE [id number] 21:17:00 Test Item Value Reference Range Interpretation Comments POC-GLUCOSE METER 265 mg/dL 70-110 H TESTED AT [facility] 6720 ([facility]) (test code = ELIAS Melgoza [facility] 1538) [address] U/S, [id number] 18:00:00Please evaluate via TRUS for prostatic abscess/drainable [...] No organized/drainable fluid collection identified. Signed: Hay Dodgeort Verified Date/Time: 07/09/2018 18:00:47 Reading Location: [address] Ultrasound Reading Room POCT-GLUCOSE [id number] 16:49:00 Test Item Value Reference Range Interpretation Comments POC-GLUCOSE METER 170 mg/dL 70-110 H TESTED AT [place] [address] ([facility]) (test code = ELIAS Melgoza [facility] 1538) [address] POCT-GLUCOSE [id number] 11:38:00 Test Item Value Reference Range Interpretation Comments POC-GLUCOSE METER 246 mg/dL 70-110 H TESTED AT [place] [address] ([facility]) (test code = [place] [employer] [facility] 1538) [address] PROTHROMBIN [id number] 11:07:00 Test Item Value Reference Range Interpretation Comments PROTIME ([facility]) (test code = 15.7 seconds 11.7-14.7 H 759) INR ([facility]) (test code = 370) 1.3 <=5.9 RECOMMENDED COUMADIN/WARFARIN INR THERAPY RANGESSTANDARD DOSE: 2.0 - 3.0 Includes: PROPHYLAXIS forvenous thrombosis, systemic embolization; TREATMENT for venous thrombosis and/or pulmonary embolus.HIGH RISK: Target INR is 2.5-3.5 for patients with mechanical heart valves.HEMOGLOBIN [id number] 08:45:00 Test Item Value Reference Range Interpretation Comments HEMOGLOBIN A1C ([facility]) (test code = 5.5 % 4.3-6.1 368) POCT-GLUCOSE [id number] 08:18:00 Test Item Value Reference Range Interpretation Comments POC-GLUCOSE METER 210 mg/dL 70-110 H TESTED AT [place] [address] ([facility]) (test code = [place] [employer] [facility] 1538) [address] URINALYSIS W/ [id number] 06:28:00 Test Item Value Reference Range Interpretation [...] 516) SOURCE(BEAKER) (test code = Urine, Voided 2795) HEPATIC FUNCTION [id number] 03:40:00 Test Item Value Reference Range Interpretation [...] = 49 U/L 6-55 347) BASIC METABOLIC [id number] 03:40:00 Test Item Value Reference Range Interpretation [...] PATIEN TS. CBC W/PLT COUNT & AUTO [id number] 03:20:00 Test Item Value Reference Range Interpretation [...] % 0-1 PERCENT (BEAKER) (test code = 2800) POCT-GLUCOSE [id number] 01:26:00 Test Item Value Reference Range Interpretation Comments POC-GLUCOSE METER 202 mg/dL 70-110 H TESTED AT [facility] 6720 ([facility]) (test code = ELIAS MOELLER 1538) [address]
[2021-03-19 10:08] LABS: Protime INR 1.22
[2021-03-19 10:13] LABS: Absolute Lymphocytes (CBC) 1.2 K/uL (0.7-4.9); Basophils % 0.8 % (0-1.3); Hematocrit 35.2 % (39.6-49.0); Lymphocytes % 23.7 % (15.3-44.8); MPV 8.3 fL (7.6-11.3); RBC Red Blood Cell Count 3.81 M/uL (4.33-5.43)
[2021-03-19 10:53] LABS: ALT/SGPT 26 U/L (12-78); AST/SGOT 23 U/L (15-37); Albumin 3.2 g/dL (3.4-5.0); Alkaline Phosphatase 94 U/L (45-117); BUN Blood Urea Nitrogen 8 mg/dL (7-18); Bicarbonate 31 mmol/L (21-32); Bilirubin Direct 0.2 mg/dL (0-0.2); Bilirubin Total 0.7 mg/dL (0.2-1.0); Glucose Level 101 mg/dL (74-106); NT PRO-BNP 149 pg/mL (<125); Protein, Total 7.7 g/dL (6.4-8.2); Sodium Level 142 mmol/L (136-145)
--- NOTE | 2021-03-19 11:06 | RAD REPORT ---
EXAM DESCRIPTION: US - Extrem Venous W Compress Bacilio - 03/19/2021 11:00 am CLINICAL HISTORY: Swelling;Pain Bilateral leg edema and swelling. COMPARISON: No comparisons TECHNIQUE: Real-time sonographic interrogation of the left and right lower extremity deep venous sys tems was performed. FINDINGS: Extensive bilateral DVT is seen. On the right, DVT extends from proximal femoral to the po pliteal vein. On the left from the common femoral to the popliteal vein. IMPRESSION: Extensive bilateral DVT is present.
--- NOTE | 2021-03-19 11:17 | ER ---
Nurse's Notes [facility] Name: Froy Hatfield Age: 60 yrs Sex: Male : 1960 Arrival Date: 03/19/2021 Time: 09:13 Bed 23 Private MD: Les Howard E Diagnosis: Acute embolism and thrombosis of other specified deep vein of lower extremity, bilateral Presentation: 03/19 09:22 Chief complaint: Patient states: Sores to bilateral lower extremities with swelling x 2 jl7 weeks. Coronavirus screen: Client denies travel out of the [place] in the last 14 days. At this time, the client does not indicate any symptoms associated with coronavirus-19. Ebola Screen: No symptoms or risks identified at this time. Initial Sepsis Screen: Does the patient meet any 2 criteria? No. Patient's initial sepsis screen is negative. Does the patient have a suspected source of infection? No. Patient's initial sepsis screen is negative. Risk Assessment: Do you want to hurt yourself or someone else? Patient reports no desire to harm self or others. Onset of symptoms was March 03, 2021. 09:22 Method Of Arrival: Wheelchair jl7 09:22 Acuity: JO 3 jl7 Triage Assessment: 09:24 General: Appears in no apparent distress. uncomfortable, Behavior is calm, cooperative, jl7 appropriate for age. Pain: Complains of pain in right leg and left leg. Historical: - Allergies: 09:24 No Known Allergies; jl7 - Home Meds: 09:24 aspirin 325 mg Oral TbEC 1 tab once daily [Active]; atorvastatin 40 mg Oral tab 1 tab jl7 once daily [Active]; Januvia 50 mg Oral tab 1 tabs once daily [Active]; carvedilol 12.5 mg Oral tab 1 tab 2 times per day [Active]; lisinopril 40 mg Oral tab 1 tab once daily [Active]; chemo [Active]; - PMHx: 09:24 CVA; Left sided deficits; Diabetes - IDDM; Hypertension; kidney CA; with mets to liver; jl7 - PSHx: 09:24 partial nephrectomy on right; jl7 - Immunization history:: Client reports receiving the 2nd dose of the Covid vaccine. - Social history:: Smoking status: unknown. Vital Signs: 09: BP 131 / 82; Pulse 75; Resp 16; Temp 98.1; Pulse Ox 100% ; jl7 11:18 Weight 104.33 kg; 3 ED Course: 09:13 Patient arrived in ED. am2 09:14 Les Howard MD is Private Physician. am2 09:24 Triage completed. jl7 09:24 Arm band placed on right wrist. jl7 09:29 Skip Esteban PA is PHCP. jr8 09:29 Gilles Marcos is Attending Physician. jr8 09:39 Elvin Barrera, LORENA is Primary Nurse. jl7 11:00 US Extremity Venous W Compression Bacilio In Process Unspecified. EDMS 11:16 Mayank Rocha DO is Hospitalizing Provider. jr8 12:28 COVID-19 : Document "Date of Symptom Onset" if Symptomatic. Sent. ld1 Administered Medications: 12:28 Drug: Potassium Chloride 40 mEq Route: PO; ld1 12:28 Drug: Lovenox (enoxaparin) 1 mg/kg Route: Sub-Q; Site: abdomen; ld1 Outcome: 11:17 Decision to Hospitalize by Provider. jr8 03/20 16:48 Patient left the ED. ld1 Signatures: Dispatcher [employer] EDRI Skip Esteban PA PA jrElvin Douglass, RN RN 7 Shea Donnelly Madisyn Calvert [facility] Mackenzie Dooley RN RN ld1 Corrections: (The following items were deleted from the chart) 03/19 09:27 09:24 Home Meds: Januvia oral; [facility]
--- NOTE | 2021-03-19 11:17 | EDPHYS ---
Physician Documentation [facility] Name: Froy Hatfield Age: 60 yrs Sex: Male : 1960 Arrival Date: 03/19/2021 Time: 09:13 Bed 23 Private MD: Les Howard E ED Physician Gilles Marcos HPI: 03/19 10:25 This 60 yrs old Black Male presents to ER via Wheelchair with complaints of Leg jr8 Swelling. 10:25 Associated signs and symptoms: Pertinent positives: calf tenderness. Severity of jr8 symptoms: At their worst the symptoms were moderate, in the emergency department the symptoms are unchanged. The patient has not experienced similar symptoms in the past. The patient has not recently seen a physician. This is a 60-year-old male patient who presented to the emergency room for complaints of lower extremity swelling and pain bilaterally. Stated that it started about 2 weeks ago and has not gone away. Patient with current history of renal cell carcinoma with metastasis to the liver. Undergoing chemotherapy at this time. Currently denies body aches chills or fevers.. Historical: - Allergies: 09:24 No Known Allergies; jl7 - Home Meds: 09:24 aspirin 325 mg Oral TbEC 1 tab once daily [Active]; atorvastatin 40 mg Oral tab 1 tab jl7 once daily [Active]; Januvia 50 mg Oral tab 1 tabs once daily [Active]; carvedilol 12.5 mg Oral tab 1 tab 2 times per day [Active]; lisinopril 40 mg Oral tab 1 tab once daily [Active]; chemo [Active]; - PMHx: 09:24 CVA; Left sided deficits; Diabetes - IDDM; Hypertension; kidney CA; with mets to liver; jl7 - PSHx: 09:24 partial nephrectomy on right; jl7 - Immunization history:: Client reports receiving the 2nd dose of the Covid vaccine. - Social history:: Smoking status: unknown. ROS: 10:25 Constitutional: Negative for fever, chills, and weight loss, Cardiovascular: Negative jr8 for chest pain, palpitations, and edema, Respiratory: Negative for shortness of breath, cough, wheezing, and pleuritic chest pain, Abdomen/GI: Negative for abdominal pain, nausea, vomiting, diarrhea, and constipation, Back: Negative for injury and pain, Skin: Negative for injury Neuro: Negative for headache, weakness, numbness, tingling, and seizure. 10:25 MS/extremity: Positive for pain, swelling, tenderness, of the right leg and left leg. Exam: 10:25 Constitutional: This is a well developed, well nourished patient who is awake, alert, jr8 and in no acute distress. Cardiovascular: Regular rate and rhythm with a normal S1 and S2. No gallops, murmurs, or rubs. Normal PMI, no JVD. No pulse deficits. Respiratory: Lungs have equal breath sounds bilaterally, clear to auscultation and percussion. No rales, rhonchi or wheezes noted. No increased work of breathing, no retractions or nasal flaring. Abdomen/GI: Soft, non-tender, with normal bowel sounds. No distension or tympany. No guarding or rebound. No evidence of tenderness throughout. Back: No spinal tenderness. No costovertebral tenderness. Full range of motion. Neuro: Awake and alert, GCS 15, oriented to person, place, time, and situation. Cranial nerves II-XII grossly intact. Right-sided extremities 5/5 in strength. Left side hemiparesis from previous stroke. Sensory grossly intact. 10:25 Neck: Trachea midline, no thyromegaly or masses palpated, and no cervical lymphadenopathy. Supple, full range of motion without nuchal rigidity, or vertebral point tenderness. No Meningismus. MS/ Extremity: Pulses equal, no cyanosis. Neurovascular intact. Bilateral 1+ pitting edema noted from the ankles to the proximal calfs. Some blistering noted from the swelling. No extensive erythema, warmth, cellulitis seen. Mild tenderness to palpation of both legs present over the swollen areas. Vital Signs: 09:22 BP 131 / 82; Pulse 75; Resp 16; Temp 98.1; Pulse Ox 100% ; jl7 11:18 Weight 104.33 kg; dh3 MDM: 09:36 Patient medically screened. jr8 11:14 Data reviewed: vital signs, nurses notes, lab test result(s), EKG. Data interpreted: jr8 Pulse oximetry: on room air is 100 %. Interpretation: normal. Counseling: I had a detailed discussion with the patient and/or guardian regarding: the historical points, exam findings, and any diagnostic results supporting the discharge/admit diagnosis, lab results, the need for further work-up and treatment in the hospital. 11:15 ED course: Patient has extensive bilateral DVTs noted. Patient with left-sided jr8 hemiparesis and on chemotherapy. Both of these contributing to hypercoagulability. Patient needs to be anticoagulated and admitted due to the extensiveness of his deep vein thrombosis.. 03/19 09:37 Order name: Basic Metabolic Panel rust 03/19 09:37 Order name: CBC with Diff; Complete Time: 10:14 rust 03/19 09:37 Order name: LFT's; Complete Time: 10:58 rust 03/19 09:37 Order name: NT PRO-BNP; Complete Time: 10:58 rust 03/19 09:37 Order name: PT-INR; Complete Time: 10:14 rust 03/19 09:38 Order name: Basic Metabolic Panel; Complete Time: 10:58 EDFL 03/19 12:14 Order name: COVID-19 : Document "Date of Symptom Onset" if Symptomatic. iw 03/19 12:42 Order name: Hemoglobin A1c; Complete Time: 17:18 EDMS 03/19 12:42 Order name: Lipid Profile; Complete Time: 14:51 EDMS 03/19 12:42 Order name: Protime (+INR) EDMS 03/19 12:42 Order name: Protime (+INR); Complete Time: 14:29 EDMS 03/19 14:34 Order name: SARS-COV-2 RT PCR; Complete Time: 14:36 EDMS 03/19 15:25 Order name: Ptt, Activated iw 03/19 16:15 Order name: Glucose, Ancillary Testing; Complete Time: 16:18 EDMS 03/19 16:21 Order name: PTT, Activated Partial Thromb; Complete Time: 16:22 EDMS 03/19 16:28 Order name: Platelet Count; Complete Time: 16:37 EDMS 03/19 21:43 Order name: Glucose, Ancillary Testing; Complete Time: 06:09 EDMS 03/19 21:57 Order name: PTT, Activated Partial Thromb; Complete Time: 06:09 EDMS 03/20 01:10 Order name: PTT, Activated Partial Thromb; Complete Time: 06:09 EDMS 03/20 05:39 Order name: CBC with Automated Diff; Complete Time: 06:09 EDMS 03/20 05:39 Order name: Basic Metabolic Panel; Complete Time: 06:09 EDMS 08 05:39 Order name: Phosphorus; Complete Time: 06:09 EDMS 03/20 05:39 Order name: Magnesium; Complete Time: 06:09 EDMS 03/20 05:52 Order name: PTT, Activated Partial Thromb; Complete Time: 06:09 EDMS 08 08:01 Order name: Glucose, Ancillary Testing; Complete Time: 08:18 EDMS 03/20 10:27 Order name: PTT, Activated Partial Thromb; Complete Time: 10:28 EDMS 08 13:21 Order name: Glucose, Ancillary Testing; Complete Time: 13:35 EDMS 03/20 15:37 Order name: Basic Metabolic Panel; Complete Time: 15:40 EDMS 03/20 15:37 Order name: Phosphorus; Complete Time: 15:40 EDMS 03/20 15:37 Order name: Magnesium; Complete Time: 15:40 EDMS 03/19 09:37 Order name: EKG; Complete Time: 09:38 03/19 09:37 Order name: Cardiac monitoring; Complete Time: 11:23 03/19 09:37 Order name: EKG - Nurse/Tech; Complete Time: 11:23 8 03/19 09:37 Order name: IV Saline Lock; Complete Time: 09:53 03/19 09:37 Order name: Labs collected and sent; Complete Time: 09:53 03/19 09:37 Order name: O2 Per Protocol; Complete Time: 09:53 03/19 09:37 Order name: O2 Sat Monitoring; Complete Time: 09:53 03/19 09:37 Order name: US Extremity Venous W Compression Bacilio; Complete Time: 11:07 03/19 12:54 Order name: Consistent Carb (ADA) [address] EDMS Administered Medications: 12:28 Drug: Potassium Chloride 40 mEq Route: PO; ld1 12:28 Drug: Lovenox (enoxaparin) 1 mg/kg Route: Sub-Q; Site: abdomen; ld1 Disposition: 03/21 07:11 Co-signature as Attending Physician, Gilles Marcos I agree with the assessment and plan sp3 of care. Disposition Summary: 03/19/21 11:17 Hospitalization Ordered Hospitalization Status: Inpatient Admission jr8 Provider: Mayank Rocha jr8 Condition: Stable jr8 Problem: new jr8 Symptoms: have improved jr8 Bed/Room Type: Standard jr8 Location: [facility] ER HOLD(03/19/21 15:07) bd Room Assignment: ERHOLD-(03/19/21 15:07) bd Diagnosis - Acute embolism and thrombosis of other specified deep vein of lower extremity, jr8 bilateral Forms: - Medication Reconciliation Form jr8 - SBAR form jr8 Signatures: Dispatcher [employer] EDMS Margaret Moore Josh, PA PA jr8 Elvin Barrera RN RN jl7 Mackenzie Dooley RN RN ld1 Gilles Marcos sp3 Corrections: (The following items were deleted from the chart) 03/19 09:27 09:24 Home Meds: Januvia oral; jl7 jl7 15:07 11:17 Telemetry/MedSurg (Inpatient) jr8 bd 15:07 11:17 jr8 bd
[2021-03-19] MEDS ORDERED: POTASSIUM CL SA 10 MEQ TAB PO ONE (11:33)
[2021-03-19] MEDS ORDERED: ENOXAPARIN 100 MG/ML SYR SQ ONE (12:40)
[2021-03-19] MEDS ORDERED: ACETAMINOPHEN 500 MG TAB PO PRN (12:55)
[2021-03-19] MEDS ORDERED: ONDANSETRON 4 MG/2 ML VIAL IV PRN (12:59)
[2021-03-19] MEDS ORDERED: HYDROCODONE/APAP 10/325 TAB PO PRN (13:01)
[2021-03-19] MEDS ORDERED: HEPARIN/D5W 25,000 UNIT/500 ML BAG IV PRN (13:02)
[2021-03-19] MEDS ORDERED: LABETALOL 20 MG/4ML SYRINGE IV PRN (13:13)
--- NOTE | 2021-03-19 13:16 | P.HP ---
Certification for Inpatient Patient admitted to: Inpatient With expected LOS: >2 Midnights Patient will require the following post-hospital care: None Practitioner: I am a practitioner with admitting privileges, knowledge of patient current condition, hospital course, and medical plan of care. Services: Services provided to patient in accordance with Admission requirements found in Title 42 Section 412.3 of the Code of Federal Regulations Patient History Date of Service: 03/19/21 Reason for admission: Bilateral leg pain History of Present Illness: Patient is a 60-year-old male with a past medical history significant for CVA, renal cell carcinoma with mets to the liver, DM 2, hypertension, GERD, HLD who presents with complaint of bilateral lower extremity swelling and pain that has been ongoing for the past 2 weeks. Patient rated pain as 8/10 in severity and described pain as burning in quality. Patient also reported that he noted blisters and weeping to bilateral lower extremities. Patient denies any other signs or symptoms. Symptoms are aggravated by movement and relieved by nothing. Patient decided to present to the hospital due to worsening symptoms. Allergies No Known Allergies Allergy (Verified 12/23/17 00:36) Home medications list reviewed: No Home Medications: Sitagliptin Phosphate [Januvia*] 50 mg PO DAILY 11/03/16 lisinopriL [Prinivil*] 40 mg PO DAILY 11/03/16 Aspirin 325 mg PO DAILY 12/23/17 Pioglitazone HCl/Metformin HCl [Actoplus Met 15 mg-500 mg Tab] 1 tab PO BID 12/23/17 Amlodipine Besylate 1 tab PO DAILY 07/07/18 Atorvastatin Calcium [Lipitor] 40 mg PO BEDTIME 07/07/18 Pantoprazole [Protonix Tab*] 1 tab PO DAILY 07/07/18 - Past Medical/Surgical History Diabetic: Yes -: HTN -: CVA -: Diabetes -: Cataracts -: Partial nephrectomy. - Family History Mother -: Hypertension, Diabetes Father -: Hypertension, Diabetes Sister -: Cancer Brother -: Cancer - Social History Smoking Status: Never smoker Alcohol use: No CD- Drugs: No Caffeine use: Yes Place of Residence: Home Review of Systems General: Unremarkable Eyes: Unremarkable ENT: Unremarkable Respiratory: Unremarkable Cardiovascular: Unremarkable Gastrointestinal: Unremarkable Genitourinary: Unremarkable Musculoskeletal: Leg Pain, Other (BLE swelling ) Integumentary: Other (BLE blisters ) Neurological: Unremarkable Lymphatics: Unremarkable Physical Examination - Physical Exam General: Alert, In no apparent distress, Oriented x3 HEENT: Atraumatic, PERRLA, Mucous membr. moist/pink, EOMI, Sclerae nonicteric Neck: Supple, 2+ carotid pulse no bruit, No LAD, Without JVD or thyroid abnormality Respiratory: Clear to auscultation bilaterally, Normal air movement Cardiovascular: Regular rate/rhythm, Normal S1 S2 Capillary refill: <2 Seconds Gastrointestinal: Normal bowel sounds, No tenderness Musculoskeletal: Tenderness Integumentary: Other (BLE blisters ) Neurological: Normal gait, Normal speech, Normal tone, Normal affect Lymphatics: No axilla or inguinal lymphadenopathy External genitalia: Deferred Rectal: Deferred - Studies Laboratory Data (last 24 hrs) 03/19/21 09:48: PT 14.1 H, INR 1.22 03/19/21 09:48: WBC 5.20, Hgb 12.0 L, Hct 35.2 L, Plt Count 222 03/19/21 09:48: Sodium 142, Potassium 3.0 L, BUN 8, Creatinine 0.76, Glucose 101, Total Bilirubin 0.7, AST 23, ALT 26, Alkaline Phosphatase 94 Assessment and Plan - Plan --Bilateral lower extremity DVT. As noted on Doppler ultrasound. Patient had a one-time shot of Lovenox in the ER. Will initiate heparin drip protocol. Continue supportive care. --Acute pain. We will manage pain with current pain medication regimen. --Hypertension. Continue home medications and labetalol as needed. --History of CVA with left-sided weakness. Continue aspirin. --History of renal cell carcinoma with mets to the liver. Continue home medication. Patient reported that he follows up with an outpatient oncologist --GERD. Continue Protonix --HLD. Continue statin --DM2. BS monitoring with sliding scale insulin. --DVT prophylaxis with heparin drip. I have had discussion about advanced directives with the patient during this hospital admission. Addressed code status and /or goals of care. Spent more than 15 minutes. Case discussed withpatient and nurse. Discharge Plan: Home Plan to discharge in: 48 Hours - Advance Directives Does patient have a Living Will: No Does patient have a Durable POA for Healthcare: No - Code Status/Comfort Care Code Status Assessed: Yes Code Status: Full Code Physician Review: Patient Assessed, Agree with Above Assessment and Plan
[2021-03-19 14:21] LABS: Protime INR 1.34
[2021-03-19] MEDS: INSULIN -REGULAR HUMAN 50 UNIT/0.5 ML ML SQ SCH ×2 (16:07→21:00)
[2021-03-19 16:22] LABS: MPV 8.5 fL (7.6-11.3)
[2021-03-19] MEDS ORDERED: HEPARIN/D5W 25,000 UNIT/500 ML BAG IV ONE (16:44)
[2021-03-20 05:17] LABS: Absolute Lymphocytes (CBC) 1.4 K/uL (0.7-4.9); Basophils % 1.1 % (0-1.3); Hematocrit 32.2 % (39.6-49.0); Lymphocytes % 24.4 % (15.3-44.8); MPV 8.2 fL (7.6-11.3); RBC Red Blood Cell Count 3.53 M/uL (4.33-5.43)
[2021-03-20 05:36] LABS: BUN Blood Urea Nitrogen 6 mg/dL (7-18); Bicarbonate 31 mmol/L (21-32); Glucose Level 105 mg/dL (74-106); Phosphorus 2.1 mg/dL (2.5-4.9); Potassium 3.3 mmol/L (3.5-5.1); Sodium Level 143 mmol/L (136-145)
[2021-03-20 05:38] LABS: Magnesium 0.9 mg/dL (1.8-2.4)
[2021-03-20] MEDS ORDERED: Magnesium Sulfate 2gm IVPB 2 G/50 ML BAG IV ONE ×2 (06:00→06:06)
[2021-03-20] MEDS ORDERED: NA CHLORIDE 0.9% 250 ML ONE (06:06)
--- NOTE | 2021-03-20 06:59 | P.PN ---
Subjective Date of Service: 03/20/21 Chief Complaint: Bilateral leg pain Subjective: Improving (pain much improved, still with discomfort, warm legs, no new blisters. overall feeling better. no SOB) Physical Examination - Vital Signs Temperature: 97.9 F Blood Pressure: 151/96 Pulse: 88 Respirations: 15 Pulse Ox (%): 99 - Studies Laboratory Data (last 24 hrs) 03/19/21 09:48: PT 14.1 H, INR 1.22 03/19/21 09:48: WBC 5.20, Hgb 12.0 L, Hct 35.2 L, Plt Count 222 03/19/21 09:48: Sodium 142, Potassium 3.0 L, BUN 8, Creatinine 0.76, Glucose 101, Total Bilirubin 0.7, AST 23, ALT 26, Alkaline Phosphatase 94 Assessment & Plan Physician Review: Patient Assessed, Agree with Above Assessment and Plan
[2021-03-20] MEDS ORDERED: TRAMADOL HCL 50 MG TAB PO PRN (07:00)
[2021-03-20] MEDS: INSULIN -REGULAR HUMAN 50 UNIT/0.5 ML ML SQ SCH ×2 (07:30→11:30)
[2021-03-20] MEDS ORDERED: MAGNESIUM SULFATE 1 gm IVPB 1 GM/100 ML BAG IV ONE ×2 (08:00→09:26)
[2021-03-20] MEDS ORDERED: ASPIRIN 81 MG CHEWABLE TABLET PO SCH (09:00)
[2021-03-20] MEDS ORDERED: POTASSIUM CL SA 10 MEQ TAB PO ONE (09:00)
[2021-03-20] MEDS ORDERED: POTASSIUM PHOS 30 MM in NA CHLORIDE 0.9% 500 ML IV ONE (09:00)
[2021-03-20] MEDS ORDERED: APIXABAN 5 MG TABLET PO SCH (09:00)
[2021-03-20] MEDS ORDERED: ASPIRIN 81 MG CHEWABLE TABLET ONE (09:25)
[2021-03-20] MEDS ORDERED: APIXABAN 5 MG TABLET ONE (09:26)
[2021-03-20 13:02] VITALS: O2SAT 97
[2021-03-20 13:10] VITALS: BMI 27.3
[2021-03-20 13:13] VITALS: BP 144/92; TEMP 98.2
[2021-03-20 15:25] LABS: BUN Blood Urea Nitrogen 20 mg/dL (7-18); Bicarbonate 22 mmol/L (21-32); Glucose Level 175 mg/dL (74-106); Phosphorus 2.5 mg/dL (2.5-4.9); Sodium Level 140 mmol/L (136-145)
[2021-03-20 15:36] LABS: Magnesium 2.2 mg/dL (1.8-2.4); Potassium 4.6 mmol/L (3.5-5.1)
--- NOTE | 2021-03-20 15:52 | P.DS ---
Admission Date: 03/19/21 Discharge Date: 03/20/21 Disposition: ROUTINE DISCHARGE Discharge Condition: FAIR Reason for Admission: Bilateral leg pain Procedures: Bilateral venous ultrasound (03/19): FINDINGS: Extensive bilateral DVT is seen. On the right, DVT extends from proximal femoral to the popliteal vein. On the left from the common femoral to the popliteal vein. IMPRESSION: Extensive bilateral DVT is present. Problem list Extensive bilateral lower extremity DVTs CVA with left-sided weakness Renal cell carcinoma with mets to the liver, on chemotherapy GERD DM2 Hyperlipidemia Hypertension Hypomagnesemia, resolved Hypokalemia, resolved Hypophosphatemia, resolved Brief History of Present Illness: 60-year-old male with a past medical history significant for CVA, renal cell carcinoma with mets to the liver, DM 2, hypertension, GERD, HLD who presents with complaint of bilateral lower extremity swelling and pain that has been alysia oing for the past 2 weeks. Patient rated pain as 8/10 in severity and described pain as burning in quality. Patient also reported that he noted blisters and weeping to bilateral lower extremities. Patient denies any other signs or symptoms. Symptoms are aggravated by movement and relieved by nothing. Patient decided to present to the hospital due to worsening symptoms. Hospital Course: Patient was found to have extensive bilateral DVTs. He was given a dose of Lovenox in the ED and treated on heparin drip overnight. He was not a candidate for TPA due to his renal cell carcinoma with liver metastasis. He had significant improvement in his pain and swelling. Following day he reported no longer have any pain, did not require any pain medication. He was transitioned to p.o. Eliquis. Although patient did report lower extremity edema and bleb/bullae formation, he did not have any other signs or symptoms of phlegmasia cerulea dolens. His lower extremities remained warm and well perfused. Patient reported feeling much better and wanted to be discharged home. Given his improvement in symptoms and correction of his electrolytes, he was discharged home to continue with Eliquis. Patient was noted to have hypomagnesemia, hypokalemia, and some hypophosphatemia. These were repleted. He was advised to continue with magnesium supplementation. To follow-up with his PCP in 3 to 5 days. Recommended repeat lab work to follow-up on his electrolytes. Follow-up with his oncologist in the next 1-2 weeks. Vital Signs/Physical Exam: Temp Pulse Resp BP Pulse Ox 98.2 F 80 18 144/92 H 99 03/20/21 08:00 03/20/21 08:00 03/20/21 08:00 03/20/21 08:00 03/20/21 08:00 General: Alert, In no apparent distress, Oriented x3 HEENT: Sclerae nonicteric Neck: Supple Respiratory: Clear to auscultation bilaterally, Normal air movement Cardiovascular: Regular rate/rhythm, Edema (trace bilaterally to knees) Gastrointestinal: Soft and benign, Non-distended, No tenderness Musculoskeletal: No erythema, No tenderness Integumentary: Skin lesion (superficial skin tear / ulcer on b/l feet) Neurological: Normal speech, Normal affect, Other (L sided weakness) Laboratory Data at Discharge: WBC 5.80 K/uL (4.3-10.9) 03/20/21 05:01 Hgb 10.9 g/dL (13.6-17.9) L 03/20/21 05:01 Hct 32.2 % (39.6-49.0) L 03/20/21 05:01 Plt Count 220 K/uL (152-406) 03/20/21 05:01 PT 15.4 SECONDS (9.5-12.5) H 03/19/21 14:07 INR 1.34 03/19/21 14:07 APTT 124.0 SECONDS (24.3-36.9) H* 03/20/21 09:31 Sodium 140 mmol/L (136-145) 03/20/21 14:16 Potassium Cancelled 03/20/21 15:00 BUN 20 mg/dL (7-18) H 03/20/21 14:16 Creatinine 0.98 mg/dL (0.55-1.3) 03/20/21 14:16 Glucose 175 mg/dL (74-106) H 03/20/21 14:16 Phosphorus 2.5 mg/dL (2.5-4.9) 03/20/21 14:16 Magnesium 2.2 mg/dL (1.8-2.4) D 03/20/21 14:16 Total Bilirubin 0.7 mg/dL (0.2-1.0) 03/19/21 09:48 AST 23 U/L (15-37) 03/19/21 09:48 ALT 26 U/L (12-78) 03/19/21 09:48 Alkaline Phosphatase 94 U/L (45-117) 03/19/21 09:48 Triglycerides 49 mg/dL (<150) 03/19/21 14:07 Cholesterol 147 mg/dL (<200) 03/19/21 14:07 HDL Cholesterol 46 mg/dL (40-60) 03/19/21 14:07 Cholesterol/HDL Ratio 3.20 03/19/21 14:07 Home Medications: lisinopriL [Prinivil*] 40 mg PO DAILY 11/03/16 Aspirin 325 mg PO DAILY 12/23/17 Amlodipine Besylate 1 tab PO DAILY 07/07/18 Atorvastatin Calcium [Lipitor] 40 mg PO BEDTIME 07/07/18 Cabozantinib S-Malate [Cabometyx] 40 mg PO DAILY 03/19/21 Carvedilol [Coreg] 1 tab PO BID 03/19/21 Omeprazole [Prilosec] 40 mg PO DAILY 03/19/21 Sitagliptin Phosphate [Januvia] 50 mg PO DAILY 03/19/21 Apixaban [Eliquis] 5 mg PO SEECOM 30 Days #1 tab.ds.pk 03/20/21 Magnesium Chloride [Mag Delay] 64 mg PO BID 30 Days #60 tablet. 03/20/21 New Medications: Apixaban [Eliquis] 5 mg PO SEECOM 30 Days #1 tab.ds.pk Magnesium Chloride [Mag Delay] 64 mg PO BID 30 Days #60 tablet. Diet: ADA Activity: Ad kristi Followup: Les Howard MD [Primary Care Provider] - Time spent managing pt's care (in minutes): 45
--- NOTE | 2021-03-20 16:30 | EKG ---
Test Date: 2021-03-19 Test Time: 10:47:17 Bookkeeping Assistant: DIDIER MEASUREMENT RESULTS: Intervals: Rate: 72 SC: 140 QRSD: 92 QT: 380 QTc: 416 [place]: P: 55 SC: 140 QRS: 12 T: 19 INTERPRETIVE STATEMENTS: Normal sinus rhythm Normal ECG Compared to ECG 07/07/2018 13:43:13 Sinus tachycardia no longer present Myocardial infarct finding no longer present Electronically Signed On 03-20-21 16:24:26 CDT by Connor Rivera
== END 2021-03-20 16:52 | disposition home or self-care (01) | DRG 300 ==
LOC: ER 09:13 → ERHOLD 12:29
PROVIDERS: ADMIT Hospitalist; ATTEND Hospitalist
DX: I82.411 Acute embolism and thrombosis of right femoral vein (principal); I69.354 Hemiplegia and hemiparesis following cerebral infarction affecting left non-dominant side; C64.9 Malignant neoplasm of unspecified kidney, except renal pelvis; C78.7 Secondary malignant neoplasm of liver and intrahepatic bile duct; I82.431 Acute embolism and thrombosis of right popliteal vein; I82.412 Acute embolism and thrombosis of left femoral vein; I82.432 Acute embolism and thrombosis of left popliteal vein; I10 Essential (primary) hypertension; K21.9 Gastro-esophageal reflux disease without esophagitis; E78.5 Hyperlipidemia, unspecified; E83.42 Hypomagnesemia; E87.6 Hypokalemia; E83.39 Other disorders of phosphorus metabolism; Z20.822 Contact with and (suspected) exposure to COVID-19
CPT/HCPCS: 36415; 80048; 80061; 80076; 82947; 83036; 83735; 83880; 84100; 85025; 85049; 85610; 85730; 93005; 93970; 96372; 99281; 99283; J1644; J1650; J3475; J7040; J7050; U0003

== ENCOUNTER 2021-04-12 11:11 | Emergency (ER) | payer OTHER ==
--- OUTSIDE RECORDS SUMMARY | 2021-04-12 11:19 | XMS REPORT | Continuity of Care Document ---
:1960 Author Organization [facility] t Address [address] [place] [address] Care Team Providers Name Role Phone Pcp Primary Care Physician Unavailable Ishaan Bermudez MD Attending Clinician ISHAAN BERMUDEZ Attending Clinician Unavailable Ishaan Bermudez MD Attending Clinician [address] Room Attending Clinician Unavailable Laura Menchaca NP Attending Clinician Fredy Kan MD Attending Clinician Migel Carrion MD Attending Clinician Kyle PRICE, PDavidson Attending Clinician Zuleyma Redding MD Attending Clinician ISHAAN BERMUDEZ Attending Clinician Unavailable KAYLEN MAHMOOD Attending Clinician Unavailable MARSHALL PLUMMER Attending Clinician Unavailable ZULEYMA REDDING Admitting Clinician Unavailable ISHAAN BERMUDEZ Admitting Clinician Unavailable KAYLEN MAHMOOD Admitting Clinician Unavailable MARSHALL PLUMMER Admitting Clinician Unavailable Payers Payer Name Policy Type Policy Number Effective Date Expiration Date S cari MEDICARE PART A [id number] \\[id number] - MEDICARE [facility]-MEDICAID - [id number] 2020 MEDICAID 00:00:00 [facility] PLAN [id number] 2020 2020 [facility] 00:00:00 00:00:00 STAR PLUS - [id number] 2017 [place] 00:00:00 [facility] PFAP [id number] 2016 PROGRAM - SLE 00:00:00 PFAP PROGRAM MEDICAID - [id number] [address] [facility] MGD 00:00:00 - Medical CARED [facility] STAR [id number] icaid Contracted Problems Condition Condition Condition Status Onset Resolution [...] Date Source Natural brother Diabetes [facility] Natural brother Hypertension [facility] Natural brother Stroke [facility] Natural father No Known Problem [facility] Natural mother Diabetes [facility] Natural mother Hypertension [facility] Natural sister Diabetes [facility] Natural sister Hypertension [facility] Natural sister Stroke [facility] Social History Social Habit Start Date Stop Date Quantity Comments Source History [facility] Alcohol Std Drinks [facility] History [facility] Binge Medical [address] ter Sex Assigned At [facility] Tobacco use and 2020-05-09 2020-05-09 Never used [facility] - exposure 00:00:00 00:00:00 [facility] Alcohol intake 2020-05-09 2020-05-09 Current [facility] - 00:00:00 00:00:00 non-drinker of Medical Ce nter alcohol (finding) History SDOH 2018-07-09 2018-07-[address] [facility] - Alcohol Frequency 00:00:00 00:00:00 [facility] History of tobacco 2011-07-09 [facility]00 [facility] Smoking Status Start Date Stop Date Source Former smoker 2020-05-09 00:00:00 2020-05-09 00:00:00 [facility] Medications Ordered Filled Start Stop Current Ordering Indication Dosage Frequency Signature Comments Components Source Medication Medication Date Date Medication? Clinician (SIG) Name Name atorvastati 2019-08 Yes 40mg QD Take [address] [facility] (LIPITOR) 0-08 by mouth Luke s - 40 MG 17:37: daily. Medical tablet [address] [place] lisinopril 2019-08 Yes 40mg QD Take [address] (PRINIVIL,Z 0-08 by mouth Luke s - ESTRIL) 40 17:37: daily. Medic al MG tablet [address] [place] aspirin 81 2019-08 Yes 81mg QD Take [address] MG EC 0-08 by mouth [facility]ukes - tablet 17:37: daily. Medical [address] [place] docusate 2019-08 Yes 100mg QD Take [address] sodium 0-08 mg by Lukes - (COLACE) 17:37: mouth Medical 100 MG 48 daily. Center capsule atorvastati 2019-08 Yes 40mg QD Take [address] [facility] (LIPITOR) 0-08 by mouth Luke s - 40 MG 17:37: daily. Medical tablet 48 [place] lisinopril 2019-08 Yes 40mg QD Take [address] (PRINIVIL,Z 0-08 by mouth Luke s - ESTRIL) 40 17:37: daily. Medic al MG tablet 48 [place] aspirin 81 2019-08 Yes 81mg QD Take [address] MG EC 0-08 by mouth Lukes - tablet 17:37: daily. Medical [address] [place] docusate 2019-08 Yes 100mg QD Take [address] sodium 0-08 mg by Lukes - (COLACE) 17:37: mouth Medical 100 MG 48 daily. [place] capsule atorvastati 2019-08 Yes 40mg QD Take [address] [facility] (LIPITOR) 0-08 by mouth Luke s - 40 MG 17:37: daily. Medical tablet 48 [place] lisinopril 2019-08 Yes 40mg QD Take [address] (PRINIVIL,Z 0-08 by mouth Luke s - ESTRIL) 40 17:37: daily. Medic al MG tablet 48 [place] aspirin 81 2019-08 Yes 81mg QD Take [address] MG EC 0-08 by mouth Lukes - tablet 17:37: daily. [address] docusate 2019-08 Yes 100mg QD Take [address] sodium 0-08 mg by Lukes - (COLACE) 17:37: mouth Medical 100 MG 48 daily. [place] capsule acetaminoph 2019-08 Yes 650mg Take 2 [...] Lukes - 00:00: mouth Medical 00 daily. [place] CABOMETYX Yes 1{tbl} QD Take [address] 40 mg Tab 9-17 tablet by Lukes - 00:00: mouth Medical 00 daily. Center CABOMETYX Yes 1{tbl} QD Take [address] 40 mg Tab 9-17 tablet by Lukes - 00:00: mouth Medical 00 daily. Center pioglitazon 2020- No 1{tbl} Take [address] e-metFORMIN 10-05 tablet by Kim vides - (ACTOPLUS 00:00: 00:00 mouth Medica l MET) [address] 00 :00 daily with Ce nter mg per breakfast. tablet pioglitazon 2019- No 1{tbl} Take [address] e-metFORMIN 10-05 tablet by Kim tollivers - (ACTOPLUS 00:00: 00:00 mouth Medica l MET) 15850 00 :00 daily with Ce nter mg per breakfast. tablet pioglitazon 2019- No 1{tbl} Take [address] e-metFORMIN 10-05 tablet by Kim [employer]uk[employer]inks - (ACTOPLUS 00:00: 00:00 mouth Medica l MET) 15850 00 :00 daily with Ce nter mg [...] mouth Lukes - 00:00: daily. Medical [address] [place] AUGUVIA 50 2017-08 Yes 50mg QD Take [address] mg tablet 1-20 by mouth Lukes - 00:00: daily. [address] 50 2017-08 Yes 50mg QD Take [address] mg tablet 1-20 by mouth Lukes - 00:00: daily. [address] pantoprazol 0 Yes 40mg QD Take [address] e 9-19 by mouth Lukes - (PROTONIX) 00:00: daily. Medic al 40 MG 00 Center tablet pantoprazol 0 Yes 40mg QD Take [address] e 9-19 by mouth Lukes - (PROTONIX) 00:00: daily. Medic al 40 MG 00 Center tablet pantoprazol 0 Yes 40mg QD Take [address] e 9-19 by mouth Lukes - (PROTONIX) 00:00: daily. Medic al 40 MG 00 Center tablet amLODIPine Yes 10mg QD Take [address] (NORVASC) 9-06 by mouth Lukes - 10 MG 00:00: daily. Medical tablet [address] [place] [address] amLODIPine Yes 10mg QD Take [address] (NORVASC) 9-06 by mouth Lukes - 10 MG 00:00: daily. Medical tablet [address] [place] [address] amLODIPine Yes 10mg QD Take [address] (NORVASC) 9-06 by mouth Lukes - 10 MG 00:00: daily. Medical tablet [address] [place] [address] Immunizations Ordered Immunization Filled Immunization Date Status Commen ts Source Name Name Covid-19 Vaccine 2020-11-[address] [facility] [facility] - [facility] (Pf) 00:00:00 [facility] (iScreen Vision/Fitly) Covid-19 Vaccine 2020-11-[address] [facility] - Mrna (Pf) 00:00:00 [facility] (iScreen Vision/Fitly) Covid-19 Vaccine 2020-11-[address] [facility] - Mrna (Pf) 00:00:00 [facility] (iScreen Vision/Fitly) Covid-19 Vaccine 2020-10-[address] [facility] - Mrna (Pf) 00:00:00 [facility] (Data[employer] Software) Covid-19 Vaccine 2020-10-[address] [facility] - Mrna (Pf) 00:00:00 [facility] (Pfizer/biontech) Covid-19 Vaccine 2020-10-27 Completed [facility] - Mrna (Pf) 00:00:00 [facility] (Pfizer/biontech) Vital Signs Vital Name Observation Time Observation Value Comments Source Systolic blood 2020-05-10 16:00:00 113 mm[Hg] [facility] Diastolic blood 2020-05-10 16:00:00 66 mm[Hg] [facility] Heart rate 2020-05-10 16:00:00 77 /min [facility] Body temperature 2020-05-10 16:00:00 35.61 [facility] Respiratory rate 2020-05-10 16:00:00 14 /min [facility] Oxygen saturation in 2020-05-10 16:00:00 98 /min [facility] Arterial blood by Medical Ce nter Pulse oximetry Body weight 2020-05-10 04:41:00 95.482 kg [facility] BMI 2020-05-10 04:41:00 32.01 kg/m2 [facility] Body height 2020-05-09 20:00:00 172.7 cm [facility] Procedures Procedure Date / Time Performed Performing Clinician [facility] keysha CT CHEST WITH IV 2021-04-11 10:13:00 YenClaude danilo [facility] CT ABDOMEN/PELVIS WITH & 2021-04-11 10:13:00 YenClaude [facility] - WITHOUT IV CONTRAST Medical [facility] er CT CHEST WITH IV 2021-02-06 12:05:00 YenClaude [facility] CONTRAST [facility] CT ABDOMEN/PELVIS WITH 2021-02-06 12:05:00 YeClaude bennett [facility] - IV CONTRAST [facility] CT ABDOMEN/PELVIS WITH 2020-11-19 11:25:[address] [facility] - IV CONTRAST [facility] CT CHEST WITH IV 2020-11-19 11:25:00 YeClaude bennett [facility] POCT-CREATININE 2020-11-19 10:44:00 Yen, Claude Quiros [facility] CT ABDOMEN/PELVIS WITH 2020-07-12 11:44:00 Yen, Claude Quiros I [facility] IV [facility] CT CHEST WITH IV 2020-07-12 11:44:00 Yen, Claude Quiros [facility] POCT-CREATININE 2020-07-12 11:07:00 Yen, Claude Quiros [facility] CT BIOPSY ABDOMEN 2020-05-10 12:25:00 Redding, Melinda Amor [facility] TISSUE EXAM 2020-05-10 11:54:00 Redding, Melinda Amor [facility] SARS-COV2/RT-PCR ([facility] & 2020-05-10 04:37:00 Redding, Melinda Gerber [facility] - REF LABS) [facility] CBC (HEMOGRAM ONLY) 2020-05-10 04:01:00 Redding, Melinda Amor [facility] PROTHROMBIN TIME/INR 2020-05-10 04:01:00 Redding, Melinda Amor [facility] POCT-GLUCOSE METER 2020-05-09 23:10:00 [facility] 2020-05-09 10:22:00 [facility]T [facility] & AUTO 2020-05-09 10:22:00 Lo Carson [facility] PROTHROMBIN TIME/INR 2020-05-09 10:22:00 Lo Carson [facility] APTT 2020-04-20 10:17:00 Lo [facility] CBC W/PLT COUNT & AUTO 2020-04-20 10:17:00 Lo Carson [facility] PROTHROMBIN TIME/INR 2020-04-20 10:17:00 Lo Carson [facility] CBC W/PLT COUNT & AUTO 2020-04-13 11:13:00 Lyudmila Macario [facility] PROTHROMBIN TIME/INR 2020-04-13 11:08:00 Lyudmila Macario [facility] APTT 2020-04-13 11:08:00 [facility] Plan of Care Planned Activity [...] Lukes - Test 00:00:00 (12+) [code = [facility] DEPRESSION SCREENING (12+)] Future Scheduled 2020-08-[address] [facility] - Test 00:00:00 (12+) [code = [facility] DEPRESSION SCREENING (12+)] Future Scheduled 2020-08-[address] [facility] - Test 00:00:00 (12+) [code = [facility] DEPRESSION SCREENING (12+)] Future Scheduled 2016-01-03 [...] s - Test 00:00:00 (procedure) [code = [facility] 79926902] Future Scheduled [address] [facility] - Test 00:00:00 (procedure) [code = [facility] 37517917] Future Scheduled [address] [facility] - Test 00:00:00 (procedure) [code = [facility] 75049336] Future Scheduled 1981 DTAP/TDAP/TD VACCINES CH I [...] Medica l Center colon (procedure) [code = 485248433] Future Scheduled [address] [facility] - Test 00:00:00 malignant neoplasm of Medica l Center colon (procedure) [code = 934483340] Future Scheduled [address] [facility] - Test 00:00:00 malignant neoplasm of Medica l Center colon (procedure) [code = 159598028] Encounters Start End Encounter Admission Attending Care Care Encounter Source Date/Time Date/Time Type Type Clinicians Facility Department ID 2021-04-11 2021-04-11 [facility] Claude Bermudez [facility] [id number] 09:10:05 23:59:00 Encounter [facility] 2021-04-11 2021-04-11 [facility] Claude Bermudez [facility] [id number] 09:09:57 09:09:57 Encounter [facility] 2021-03-27 2021-03-27 Outside Claude Bermudez [facility] [id number] 00:00:00 00:00:00 Orders [facility] 2021-03-26 2021-03-26 Outpatient SUKHI BERMUDEZ [facility] [id number] [facility] 10:29:33 15:09:19 Jenni e 2021-03-26 2021-03-26 Office Sukhi Bermudez [facility] [id number] 10:29:33 15:09:19 Visit Ishaan Guardador [id number] 2021-02-06 2021-02-06 [facility] Claude Bermudez [facility] [id number] 11:02:21 23:59:00 [facility] 2021-02-06 2021-02-06 [facility] [id number] 11:02:12 23:59:00 [facility] 2021-01-23 2021-01-23 [facility] Claude Bermudez [facility] [id number] 00:00:00 00:00:00 Orders [facility] 2021-01-22 2021-01-22 Office Nikolai [facility] [id number] 10:51:06 13:05:10 Visit Jaylen Guardador [id number] Laura [id number] 2020-11-27 2020-11-27 Office Sukhi Bermudez [facility] [id number] 09:48:38 11:14:28 Visit Ishaan DavisNair [id number] 2020-11-19 2020-11-19 [facility] [id number] 09:31:38 23:59:00 En[facility] 2020-11-19 2020-11-19 [facility] Claude Bermudez [facility] [id number] 09:31:28 23:59:00 Encounter 1, [facility] [address] [facility] Room [facility] 2020-11-17 2020-11-17 Immunizoswaldo Kan [facility] [id number] 12:26:25 12:36:25 on [facility] 2020-10-27 2020-10-27 ImmunizJeancarlos Patel [facility] [id number] 13:52:49 14:02:[address] [facility] 2020-10-03 2020-10-03 Outside Claude Bermudez [facility] [id number] 00:00:00 00:00:00 Orders [facility] 2020-10-02 2020-10-02 Office Sukhi Bermudez [facility] [id number] 09:52:54 10:12:54 Visit Eddanilo Lucio [id number] 2020-07-24 2020-07-24 Office America Martacarter [facility] [id number] 09:42:03 11:50:12 Visit Eddanilo Lucio [id number] 2020-07-12 2020-07-12 [facility] Claude Bermudez [facility] [id number] 10:30:03 23:59:00 Encounter 1, [facility] [facility] Room [facility] 2020-07-12 2020-07-12 [facility] Claude Bermudez [facility] [id number] 10:29:49 10:29:49 Encounter 1, [facility] [facility] Room [facility] 2020-05-30 2020-05-30 Outside Claude Bermudez [facility] [id number] 00:00:00 00:00:00 Orders [facility] 2020-05-25 2020-05-25 Office America Martacarter [facility] [id number] [id number] 12:15:16 14:16:12 Visit Eddanilo Lucio [id number] 2020-05-09 2020-05-10 [facility] Yasmine Wright [facility] [id number] 17:16:00 17:37:00 Encounter Melinda Redding [facility] 2020-05-09 2020-05-09 [facility] [id number] 10:00:00 17:15:00 Encounter [facility] 2020-05-09 2020-05-09 [facility] [id number] 00:00:00 00:00:00 Only Yasmine Saavedra Carmen [facility] 2020-05-09 2020-05-09 [facility] [id number] [facility] 00:00:00 00:00:00 [facility] 2020-04-30 2020-04-30 [facility] [id number] 23:59:00 23:59:00 Encounter [facility] 2020-04-27 2020-04-27 Office Marta Bermudezjosiahmalini [facility] 1.2.840.114 [id number] 09:42:37 10:02:37 Visit Eddanilo DavisNair [id number] [id number] 2020-04-25 2020-04-25 [facility] [id number] 23:59:00 23:59:00 Encounter [facility] 2020-04-24 2020-04-24 Outside Calude Bermudez [facility] [id number] 00:00:00 00:00:00 Orders [facility] 2020-04-20 2020-04-20 [facility] Claude Bermudez [facility] [id number] 09:20:00 15:00:00 Encounter [facility] 2020-04-13 2020-04-13 [facility] bennettC[facility] [id number] [facility] 10:22:26 23:59:00 Encounter [facility] 2020-03-23 2020-03-23 Office Sukhi Bermudez [facility] 1.2.840.114 [id number] 09:07:42 10:05:06 Visit Ishaan Lucio [id number] 2020-02-10 2020-02-10 Office FlynnMarta bennettcarter [facility] 1.2.840.114 [id number] 09:58:05 11:20:50 Visit Ishaan Lucio [id number] 2019-12-02 2019-12-02 Office AmericaMartaJessica [facility] 1.2.840.114 [id number] 09:52:39 10:12:39 Visit E Lucio [id number] 2019-10-28 2019-10-28 Office Nikolai [facility] [id number] [id number] 08:54:45 09:24:45 Visit Jaylen DavisNair [id number] Laura [id number] [id number] 2019-10-07 2019-10-07 Office Nikolai [facility] [id number] [id number] 11:02:38 13:13:39 Visit Jaylen DavisNair [id number] Laura [id number] [id number] 2019-09-09 2019-09-09 Office AmericaMartaJessica [facility] [id number] [id number] 09:18:01 12:12:58 Visit E Lucio [id number] [id number] 2019-09-02 2019-09-02 Office AmericaMartaJessica [facility] 1.2.840.114 [id number] 12:23:05 13:04:24 Visit E Lucio [id number] 2019-04-26 2019-04-26 Office Claude Bermudez [facility] [id number] [id number] 08:26:03 10:59:55 Visit E Lucio [id number] Results Test Test Test Comments Results Result Source Description Time Comments CT, CHEST, WITH 2021-04- Unlisted Reason for IV CONTRAST Exam - Click Yes and 10:55:00 Enter Reason Below->YesUnlisted BAIRON SHEFFIELD Reason for Exam->Cancer - MEDICAL of right kidney CENTERName: OSCAR ABDI : 1960 Sex: M FINAL REPORT CT of the abdomen with and without contrast, CT of chest and pelvis with contrast Clinical History: Unlisted Reason for ExamCancer of right kidney Technique: CT of the abdomen is performed without IV contrast, followed by CT of chest, abdomen and pelvis performed with intravenous contrast administration and without oral contrast administration. This exam was performed according to our departmental dose optimization program which includes automated exposure control, adjustment of the mA and/or kV according to patient's size and/or use of iterative reconstructive technique. Comparison Film: February 06, 2021 and November 19, 2020 Discussion: Visualized thyroid gland is normal. No supraclavicular, axillary, mediastinal or hilar adenopathy. Heart is borderline in size, trace pericardial effusion. Stable 7 mm subpleural nodule in the anterior right upper lobe. A 5 mm subpleural nodule in the middle lobe is also unchanged. No new mass or consolidation. No effusion. A heterogeneously enhancing mass in the peripheral right hepatic lobe is stable, measuring approximately 3.4 x 1.7 cm. A stable 1 cm enhancing focus in segment 2 is probably a hemangioma. No new liver mass. No biliary ductal dilatation. Gallbladder is contracted. Spleen, pancreas, and adrenal glands are unremarkable. Infiltrative right renal mass with invasion of the right renal vein and IVC appear grossly stable. Left kidney is unremarkable. No hydronephrosis, or radiopaque stone. There are multiple right retroperitoneal metastatic deposits appear unchanged. There are is several right-sided omental/peritoneal deposits that are also unchanged, including a 2 cm deposit abutting the left hepatic lobe and diaphragm. No bowel obstruction or abnormal bowel wall thickening. Normal appendix. In the pelvis, bladder is normal. Prostate gland is enlarged. The previously seen hypodensity within the prostate gland is less apparent on the current study. No ascites. No new adenopathy. Bony structures demonstrate degenerative changes. No destructive bony lesion is identified. Impression: Compared to February 06, 2021, no change in appearance of the infiltrative right renal mass with renal vein and IVC invasion, as well as hepatic, retroperitoneal, peritoneal metastatic deposits. Stable pulmonary nodules. No new disease is identified in the chest, abdomen or pelvis. Signed: Lizzette Smith Verified Date/Time: 04/11/2021 10:55:35 Reading Location: [address] Consult Reading Room , ABDOMEN 2021-04- Unlisted Reason for Exam - Click Yes and 10:55:00 Enter Reason Below->Yes Unlisted Reason for BAIRON ALMANZA [facility] Exam->Cancer of right - MEDICAL kidney Will this CENTERName: procedure require oral OSCAR ABDI contrast?->No RIGOBERTO : 1960 Sex: M FINAL REPORT CT of the abdomen with and without contrast, CT of chest and pelvis with contrast Clinical History: Unlisted Reason for ExamCancer of right kidney Technique: CT of the abdomen is performed without IV contrast, followed by CT of chest, abdomen and pelvis performed with intravenous contrast administration and without oral contrast administration. This exam was performed according to our departmental dose optimization program which includes automated exposure control, adjustment of the mA and/or kV according to patient's size and/or use of iterative reconstructive technique. Comparison Film: February 06, 2021 and November 19, 2020 Discussion: Visualized thyroid gland is normal. No supraclavicular, axillary, mediastinal or hilar adenopathy. Heart is borderline in size, trace pericardial effusion. Stable 7 mm subpleural nodule in the anterior right upper lobe. A 5 mm subpleural nodule in the middle lobe is also unchanged. No new mass or consolidation. No effusion. A heterogeneously enhancing mass in the peripheral right hepatic lobe is stable, measuring approximately 3.4 x 1.7 cm. A stable 1 cm enhancing focus in segment 2 is probably a hemangioma. No new liver mass. No biliary ductal dilatation. Gallbladder is contracted. Spleen, pancreas, and adrenal glands are unremarkable. Infiltrative right renal mass with invasion of the right renal vein and IVC appear grossly stable. Left kidney is unremarkable. No hydronephrosis, or radiopaque stone. There are multiple right retroperitoneal metastatic deposits appear unchanged. There are is several right-sided omental/peritoneal deposits that are also unchanged, including a 2 cm deposit abutting the left hepatic lobe and diaphragm. No bowel obstruction or abnormal bowel wall thickening. Normal appendix. In the pelvis, bladder is normal. Prostate gland is enlarged. The previously seen hypodensity within the prostate gland is less apparent on the current study. No ascites. No new adenopathy. Bony structures demonstrate degenerative changes. No destructive bony lesion is identified. Impression: Compared to February 06, 2021, no change in appearance of the infiltrative right renal mass with renal vein and IVC invasion, as well as hepatic, retroperitoneal, peritoneal metastatic deposits. Stable pulmonary nodules. No new disease is identified in the chest, abdomen or pelvis. Signed: Sarah, Lizzette MDReport Verified Date/Time: 04/11/2021 10:55:35 Reading Location: [facility] B1 C013X Ortho Consult Reading Room 2021-04- Interface, [facility] St abdomen/pelvis 09 External Ris In - Carmen es - without & with 10:55:00 04/11/2021 10:57 Medi juliet IV contrast AM CDTFINAL REPORT Jolanta melgoza CT of the abdomen with and without contrast, CT of chest and pelvis with contrast Clinical History: Unlisted Reason for ExamCancer of right kidney Technique: CT of the abdomen is performed without IV contrast, followed by CT of chest, abdomen and pelvis performed with intravenous contrast administration and without oral contrast administration. This exam was performed according to our departmental dose optimization program which includes automated exposure control, adjustment of the mA and/or kV according to patient's size and/or use of iterative reconstructive technique. Comparison Film: February 06, 2021 and November 19, 2020 Discussion: Visualized thyroid gland is normal. No supraclavicular, axillary, mediastinal or hilar adenopathy. Heart is borderline in size, trace pericardial effusion. Stable 7 mm subpleural nodule in the anterior right upper lobe. A 5 mm subpleural nodule in the middle lobe is also unchanged. No new mass or consolidation. No effusion. A heterogeneously enhancing mass in the peripheral right hepatic lobe is stable, measuring approximately 3.4 x 1.7 cm. A stable 1 cm enhancing focus in segment 2 is probably a hemangioma. No new liver mass. No biliary ductal dilatation. Gallbladder is contracted. Spleen, pancreas, and adrenal glands are unremarkable. Infiltrative right renal mass with invasion of the right renal vein and IVC appear grossly stable. Left kidney is unremarkable. No hydronephrosis, or radiopaque stone. There are multiple right retroperitoneal metastatic deposits appear unchanged. There are is several right-sided omental/peritoneal deposits that are also unchanged, including a 2 cm deposit abutting the left hepatic lobe and diaphragm. No bowel obstruction or abnormal bowel wall thickening. Normal appendix. In the pelvis, bladder is normal. Prostate gland is enlarged. The previously seen hypodensity within the prostate gland is less apparent on the current study. No ascites. No new adenopathy. Bony structures demonstrate degenerative changes. No destructive bony lesion is identified. Impression: Compared to February 06, 2021, no change in appearance of the infiltrative right renal mass with renal vein and IVC invasion, as well as hepatic, retroperitoneal, peritoneal metastatic deposits. Stable pulmonary nodules. No new disease is identified in the chest, abdomen or pelvis. Signed: Lizzette Smitheport Verified Date/Time: 04/11/2021 10:55:35 Reading Location: [facility] C013X Ortho Consult Reading Room Chest with 2021-04- Interface, [facility] IV Contrast 09 External Ris In - [facility] - 10:55:00 04/11/2021 10:57 Medical AM CDTFINAL REPORT Center CT of the abdomen with and without contrast, CT of chest and pelvis with contrast Clinical History: Unlisted Reason for ExamCancer of right kidney Technique: CT of the abdomen is performed without IV contrast, followed by CT of chest, abdomen and pelvis performed with intravenous contrast administration and without oral contrast administration. This exam was performed according to our departmental dose optimization program which includes automated exposure control, adjustment of the mA and/or kV according to patient's size and/or use of iterative reconstructive technique. Comparison Film: February 06, 2021 and November 19, 2020 Discussion: Visualized thyroid gland is normal. No supraclavicular, axillary, mediastinal or hilar adenopathy. Heart is borderline in size, trace pericardial effusion. Stable 7 mm subpleural nodule in the anterior right upper lobe. A 5 mm subpleural nodule in the middle lobe is also unchanged. No new mass or consolidation. No effusion. A heterogeneously enhancing mass in the peripheral right hepatic lobe is stable, measuring approximately 3.4 x 1.7 cm. A stable 1 cm enhancing focus in segment 2 is probably a hemangioma. No new liver mass. No biliary ductal dilatation. Gallbladder is contracted. Spleen, pancreas, and adrenal glands are unremarkable. Infiltrative right renal mass with invasion of the right renal vein and IVC appear grossly stable. Left kidney is unremarkable. No hydronephrosis, or radiopaque stone. There are multiple right retroperitoneal metastatic deposits appear unchanged. There are is several right-sided omental/peritoneal deposits that are also unchanged, including a 2 cm deposit abutting the left hepatic lobe and diaphragm. No bowel obstruction or abnormal bowel wall thickening. Normal appendix. In the pelvis, bladder is normal. Prostate gland is enlarged. The previously seen hypodensity within the prostate gland is less apparent on the current study. No ascites. No new adenopathy. Bony structures demonstrate degenerative changes. No destructive bony lesion is identified. Impression: Compared to February 06, 2021, no change in appearance of the infiltrative right renal mass with renal vein and IVC invasion, as well as hepatic, retroperitoneal, peritoneal metastatic deposits. Stable pulmonary nodules. No new disease is identified in the chest, abdomen or pelvis. Signed: Lizzette Smith MDReport Verified Date/Time: 04/11/2021 10:55:35 Reading Location: [address] Ortho Consult Reading Room , CHEST, WITH 2021-01- Restaging [facility], please IV [...] Mcginnis Verified Date/Time: 02/06/2021 17:27:30 Reading Location: [facility] C013X Ortho Consult Reading Room , ABDOMEN 2021-01- [facility], please 07 compare to prior. Pt in 17:27:00 wheelchairRestaging RCC, please compare to [facility] prior. Pt in - MEDICAL wheelchairUnlisted [...] MDReport Verified Date/Time: 02/06/2021 17:27:30 Reading Location: [facility] C013X Ortho Consult Reading Room Chest with [...] MDReport Verified Date/Time: 02/06/2021 17:27:30 Reading Location: [facility] C013X Ortho Consult Reading Room 2021-01- [facility], [facility] Abdomen/Pelvis 07 External Ris In - Carmen [...] any signs or symptoms of prostatitis. Signed: Guillerom Mcginnis MDReport Verified Date/Time: 02/06/2021 17:27:30 Reading Location: [facility] B1 C013X Ortho Consult Reading Room Chest with [...] Mcginniseport Verified Date/Time: 02/06/2021 17:27:30 Reading Location: [address] Ortho Consult Reading Room 2021-01- Interface, [facility] Abdomen/Pelvis 07 External Ris In - Carmen [...] MDReport Verified Date/Time: 02/06/2021 17:27:30 Reading Location: [facility] C013X Ortho Consult Reading Room 2021-01- Interface, [facility] Abdomen/Pelvis 07 External Ris In - Carmen [...] Mcginnis Verified Date/Time: 02/06/2021 17:27:30 Reading Location: [facility] C013X [facility] Consult Reading Room , ABDOMEN 2020-11- Unlisted Reason for 19 Exam - Click Yes and 13:06:00 Enter Reason Below->YesUnlisted BAIRON SHEFFIELD Reason for - MEDICAL Exam->C64.1Will this CENTERName: [...] Smith Verified Date/Time: 11/19/2020 13:06:19 Reading Location: [address] Consult Reading Room , CHEST, WITH 2020-11- Unlisted Reason for IV CONTRAST 19 Exam - Click Yes and 13:06:00 Enter Reason Below->YesUnlisted [facility] Reason for Exam->C64.1 - MEDICAL CENTERName: [...] finding, also amenable to follow-up. Signed: Lizzette Smitheport Verified Date/Time: 11/19/2020 13:06:19 Reading Location: [facility] C013X Ortho Consult Reading Room -Creatinine 2020-11-19 10:57:00 Test Item Value Reference Range Interpretation Comme nts POC-Creatinine (test code = 0.8 mg/dL 0.6-1.3 : TESTED AT [place] [id number] [place] [address]) [facility] [address]: Email Designer/Techni vipin ID = [id number] for FLORENCE FLORENCE POC-EGFR (test code = 1860) 120 mL/min/1.73M2 [id number] 10:57:00 Test Item Value Reference Range Interpretation Comments POC-Creatinine (test 0.8 mg/dL 0.6-1.3 : TESTE D AT [place] [address] code = 1859) [facility] 7703 0: Email Designer/Techni vipin ID = [id number] for FLORENCE HINSON POC-EGFR (test code 120 mL/min/1.73M2 = 1860) [facility]-[id number] 10:57:00 Test Item Value Reference Range Interpretation Comments POC-Creatinine (test 0.8 mg/dL 0.6-1.3 : TESTE D AT [facility] 720 code = 1859) [place] [address] 0: Email Designer/Techni vipin ID = [id number] for FLORENCE HINSON POC-EGFR (test code 120 mL/min/1.73M2 = 1860) [facility]-[id number] 10:57:00 Test Item Value Reference Range Interpretation Comments POC-CREATININE 0.8 mg/dL 0.6-1.3 : TESTED AT [facility] ([facility]) (test [address] [facility] code = 1859) [facility] 7 7730: Email Designer/Techni vipin ID = [id number] for FLORENCE FLORENCE POC-EGFR 120 mL/min/1.73M2 (BEAKER) (test code = 1860) CT, [id number] 14:49:00Unlisted Reason for Exam - Click Yes and Enter Reason Below->YesUnlisted Reason for Exam->c64.1 [facility] 1960 Sex: MFINAL [...] MDReport Verified Date/Time: 07/12/2020 14:49:15 Reading Location: [address] Consult Reading Room CT, CHEST, WITH IV [id number] 14:49:00Unlisted Reason for Exam - Click Yes and Enter Reason Below- >YesUnlisted Reason for Exam->c64.1 [facility] : 1960 Sex: MFINAL REPORT [...] MDReport Verified Date/Time: 07/12/2020 14:49:15 Reading Location: [facility] C0X [facility] Consult Reading Room [id number] 11:20:00 Test Item Value Reference Range Interpretation Comments POC-CREATININE 0.8 mg/dL 0.6-1.3 : TESTED AT [facility] ([facility] (test [address] [facility] code = 1859) A, [facility] 7 1688: Email Designer/Techni vipin ID = [id number] for FLORENCE FLORENCE POC-EGFR 121 mL/min/1.73M2 (BEAKER) (test code = 1860) Tissue [id number] 05:43:00 Test Item Value Reference Range Interpretation Comments Case Report (test code Surgical Pathology = 104) Report Case: [id number] Authorizing Provider: Melinda Redding MD Collected: 05/10/2020 11:54 AM Ordering Location: [address] Received: 05/10/2020 12:35 PM Service Pathologist: Ruiz Retana MD Specimen: Abdominal, peritoneal mass biopsy DIAGNOSIS (test code = [id number] 3220) FuZzEwMzNcZnRuYmpcdWMx IHtccnRmMVxlcGljOTIwMF igwnByRRVtlTYfZ3Tjgrxp FQifHW8eEY9wmKzmjCYtwX XgHKXvHgIry2keg025wVHb a8eoILPDqzjrvUk6xWwyF8 6ob2T4VhmfK76kmOGsFYha bGFpblxmczIwIFBBUlQgQS VEXTXPQP2XHSPGGI9EW0Id FKJCT5YRFTqxtFFbHZHLRz PXWVMTVZubR7FSM8fTU62W NwknHPLgI1DAYQVOWFnDW7 XCDUSfM46NUYSXVT9lfXAl rAmxokZcFTfqe7VsPTwwSN JqVS0usTjmZRWeTB2tLTIx J6ttrH0mxks0RbRlZIHjLn M6WJHjoeS5Raw6DSEqTTkp g5yyc0CkHKGsUAo2rOpiRq EgJTCxk4baxyEfBnXaEKXn THTqYULjzATqP419i0qkb0 kkukGrdXE6CSSdSIJ2OFmx jmTsooS4ZIaqqVVjAgF6VM tccmVkMFxncmVlbjBcYmx1 WCQzW807EZK8gEbej0atHF K6QVXyXCFjKqRpUr5qiJPd G489XPDxOUBAHPHbnBq0UO LydoLqjmPkmYDNq097K555 c6qtJXKsvgEmfKcXmkcpu3 erU516UHNgaCKhndYtQbNc CAKypIImfJQ6VZBiAA2yap cjIGepVHhkWXFwfyL0VYTt wNWyR9UzFKNlJH9svyfuKV X8WDqeALMfTYF1VvLdBXDn o7Djltg7LtIvdh7uup51UC E6z5WefMlgHED7UJK9JuLo Zu4ieJHnDWKfVL5fFoCwyC ChHTKbtw56nGndIJzuYSQ1 VGNqikBon1Tye2zpLuUnok KwI9voZ9ZkVSAvZAOdWHRd PxGonaSar8Qbw7OmiKIoiH c6o1eiBCDwTNPakZurn4vc WBR3DFUzxGRcU1lxhC9kJL QzDC2qcnsng9wuHGrbTEdr OYOqtNB6dsE0DFGrjDRjI8 NlfA0gMNCoQGavGLAcpoh4 KoJqYr3deGSvfBcsTWrhWn twYWdlXHBnbmNvbnRccGdu ZGVjXHBsYWluXHBsYWluXG YwXGZzMjRccWxcbGFuZzEw MzNcaGljaFxmMVxkYmNoXG DzOQqgG9qoXcCkJrVhZmf8 UWWnjFXlBLFlFck2UGPksW ChDGJJpFmbkG9qXWHpdVmq hL6vcQH6WXUbaaNzaRONrA 6fMLTMnD2iFhP3SfFhViM0 LTC0HPNfzEJguV1= COMMENT (test code = l8spfWYkLRGotBH7TpQvAA 4280) Dna6byb3AtoPBijNDzLRdd dZVzjqFvvl42gUU6kX57JP 1hAMPgDvE2WHUohiZ1Vqu1 GYNdDXQcuQUeX410l8oxp5 lldeYkoPL1dSuxRXEoUCDe UZzsBTWhOtUzASylzV3av7 ilI1QwOEUdW3Ehf63pHDGp jR5qd5GlTTEoQNXjS55zHS MqLDQzpXVkTmnafFB3MY7m KYBln1M1WFHfrkUnvLRfXW QgpXTqYDI1vFTxqDxkbeRd xg95tQYliCZli6FcELPsFS X9tL8asmYaRRcbxgXiEGQz EESyL0ojPBHtK4JfrUAjf7 VxwE5tc4t8WdTFcF97ju2c tGO5p7UjRF8wV7DqBAX6nH BxZBXlyMEqBi6szTVdUY3w XZDlp8JuXKHbBIFokA9ek0 UtJKHwXYNmDQI2kS8hziIb PPbxyxC5ssVrVFMoa9IeuU t1UQWeg0BuSCTFKADbsrYe ZQ4UM4TuRFSlnAZozTldaR Bnz8j8zXM1vGPesmHrn0M0 XBRaZ2iarpzpZBrntImvjM 6swKSzAvZiYD8pbMDwKCph BAMvofSdtg3zAB0uXQWhac 0= CPT Code(s) (test code v3kjxSEkSXWvhNI1GoFsBV = 3357) Sdf4kjn2ShjFEusYThZYer lOKnusKgeq29bYZ9sU15UE 0uBLJeXuN9CWVvlqL5Kbf1 VYOwZIQeoHMjM045g5pdl3 rgidAdlAZ2vKbjZZSvKJGv YWluXGZzMjAgODgzMDUsID w4PbBaEDM1FNC0MIvuSFQ0 CLINICAL HISTORY (test s4qopUErXAErwBHlZtPlCL code = 3356) KjQFShs2ejYSBryVEmMiOw MzNcZnRuYmpcdWMxXGRlZm Obk0hqx868qAUxk0dtNXQq NvI6fUAhAUKorRPjB011m8 dtv5gfskWqqVZ1VUCvVER5 RJfpjmDfnhX8UNrhpBFwKx X3ZKxwisZsEDdiotVkgkIz Kbz4MZVbT114FZE3sUvey2 mmNHJ7CUDlRSNdOuRkWs0c dYAaJ341WORnJSLNBRLfnU r3WOSkpsLmwhKmrANLt685 O004j5hzJNXkqxUclFvOxz oyn8mtG036SMEqvGXveeXb YoMyKSPjkCWhtDA4BHOzTS 4szehnLqPcTV3vowcfDyAh PP5mzpn0MgUzCM4vjvllYr TsNKgtYNVhygrsRNBrn9Uv ovvoDV6iG4Dof3D4eK2iyY OsHEUbiTEtZqQoUULaag1o ePEiZSfig6UqVOG6mlF7qA YmcPZvLSJkJA43Rcxrw1Xz KogaLEB9DIVdmzYhj8Ebd5 onIeZxhjZmZ7wsL7CgVWSj UTMfKYQgJbUovrGxu8Tpz5 RiwCMbtCh2b3pbEHVlTOIq fKpbf6hpYOA8WLDxM3L9sY Zyg5xcAUozSEPsxKZ0rtei PJwiHYPqfgY8dtqzKPpeIF VgbTD2xmaoXWhgZIVgWrP8 fgryISyaQVQpIVK1ZOnhg7 09NNT0WCeaVtaeYTfwWVOh bmNvbnRccGduZGVjXHBsYW luXHBsYWluXGYwXGZzMjRc tKsetQchsH9fUgPjJhYmUU toZJ7iYYXoN2ixvRZhEWAn YFAeH5jnFmIibM2ypLjrHN wafsLqYIZjACTrZCyiDB2z AFTasBgczpJioPobkK0ilA 5ccGFyfQ== SPECIMEN SOURCE (test k8jfgVByHDXxzMB9YrPoBK code = 3377) Wbr9hpa6IkmMHaaLQbVBdc vFDadaOroc60tUZ0xB67FU 2lNKRwSmA7MQBfddA5Uvc2 TSDgGTBjtWTdR769o4epu2 uftlGyqKX9iTnpOJZaQKFg YWluXGZzMjAgUGVyaXRvbm VhbCBtYXNzXHBhcn0= GROSS DESCRIPTION (test i5prnCIiRJJezZRfWkBcON code = 3366) WxOUOcf5xeMGJajRCbTgFx MzNcZnRuYmpcdWMxXGRlZm Ixc0icr900fXNxw5dbWBHl VvS3tSIhSOOofYZeL585a3 ebr2wvcySkjDP7VYFcEBY1 ZYuvnjGghsH8PLsrfNYrCn B2HNvxerAfNDamhhHdzrDs Sbx4BZLiC266FMW5oJexz4 weOBW7ZOKyXHDeTsHcXi3l lRTtJ904XBGmDTUDZTNheB i5PZSlqtFdynOtpFLXi399 K518x7zkQAYgatAtpJcLka aug7tiN034UFIstKJfbdOn WlDrJEYscCAcgFS3WBFoVV 3wxbidSaNeEC6ydnuvWwCj HU9dbcy9GeRrOG6oswumMh QdENloWIJusrfcNRQir6Um zuqoKY2wD7Pml4G5vX7hyL QaHGFntGAqUwBwARIoam6n sBJeRSfep3VaSXR3ewN0rZ BchVFzSNFqZH55Sqjop9Yl SovdGVU4TEOhtvMor2Tck9 rmFiVobeLaI8wvO1OuCOZr SCJyKOPeCcGexyKdp0Ubt7 GluDTviFx2k2cdKLElJPNq eSfen2lsJZP7EYMtL0G1rR Wzd6xvVWmfYRWgfKB4wgle OYdxOHBditE2impnUTlrIE DpfFL9visgKSpoRVMmPnD3 vczpMTudNMQePAL8PNkvg6 88NFI2THjbObtrDQumRPCy bmNvbnRccGduZGVjXHBsYW luXHBsYWluXGYwXGZzMjRc bHRycGFyXHFsXHBsYWluXG YwXGZzMjBcbGFuZzEwMzNc aGljaFxmMFxkYmNoXGYwXG ssR6tnBgDiZpPdBHHDJZQu lIDdIOPyodXlc2SeCIcykg BsYWJlbGVkIHdpdGggdGhl ILBeqLoeayHpsaTqCK7cAF JhSXXyP4NmHIPcZ57eMEDd cU0hGVVqSI3mFUXvMgJhtQ txMYruARVxWIB0m40gkAbn E6ZvTI4aKBYckw68nTx7PR Okk5T6GJLcw7L9TWG5gBJ5 NP0tEPM4biRzHT61VPptET 66NHfuEX0gMQQaZPhgOZQp B6WtB2G2MB2cHRzgYBMmBV QgvPLcYBwnCFI9Vr0jgUJe VYCzzxU8z9FxYKIqzTvas2 mhVcQrdXd0stM8iQ4qQMmp UTUhn6DfxQWgAGAfRuOBMN IvZXcgXHBhcn0= MICROSCOPIC DESCRIPTION o8gmxYIvAATggSO7KqVmPR (test code = 3371) Qvc8jqj9KpbWEkcKEpOVds xZMoauYjjl22dCE1lV86RP 6iNSMrCmH4ODEjopB9Irz7 GXHwWNAniAZkF708v2adn1 gzseIteFT3jNjjYIOjMHPo PPwkVCPxOsZzXUFcLy3xdR VkLiBccGFyfQ== SPECIAL STUDIES (test r7kvsMQzRESshWI7IuTqKV code = 3376) Xrc2bde9EttJLkgMQiAYjk eJFpgnSpnk51qXV8iY12LI 2dILSgHgC8JAHlitC1Vtm1 GDCjNQHdoZTdG870WMScVB BjtLcxpzo2qM89OIJqeR2g bNHcZOz6YWQqodZbbJfvbP 9dAeDfErRvTyVUkBHxjJ67 IMJyjsC2AHTem04mz3DxbG hksbLrGUAfLPsgG1x2KJFt XJSyFBK8l3Pdz9MtvK9wtY 9eeFzffJ8npAItqQE8rmnr p9Pqh0HdQ3mmdNWvvIFazn RbKUUumyNXKS7GVnQJMN7p SPHMYHudQH4UU6VygMHuDP JmnrRrr0cnS4deJWAoDKT8 MK6mpkXiAmDsPL1gqU50m1 Djx06pv93vnZ9vsPOehoAa F36olZXxeUVlm8TsSPBpgp GpoFL9NAFjWKsahfpgp8d9 hOT8cSSupGFvgSU7mQHieA FlMLNUqTSfQKPda736nr8b VSBomXPxhwDdeB5yQOsybn iidXKhOT8oPXCgMBRkDMWa FL20icPwOG1vsLIkl7wwlz WdnZNyl5BcpVR9WRFovDJj kqhoYm9nWP25HCWiGFbfyF 1bwWYovwXjHI0wWM4xJ6Q7 gANrPCXssuOyo1kbDBkbQG 4gYXZhaWxhYmxlIGFyZSBl rmUzaZE6BNPjlYCpJORjlK XjSTbtoHZcl1fjv2ZfK0yf lAzluMH0WUFvO2bnjQYycL T5YZF2lS5fOKsxfbZiTAMc u7PsTMAlRWSrNyH3qF1aYE A9GaDDyOttDHM3DmJ6VXwl QGWdQF3vXIibPDolC3IkyK UiAGFNOXTsg7tsJ0tyZRPk a2RfcU6kbHI0xMXsTAXvbL G7RBLqIWK9HCyiqYHoOGOg HGYczLYktSZhSv5jcEQuV0 OlT8teddYpsQRrrFU3bFKq EPziclKlMRX1UTZwqQ5bXU 4vDFPqqIGuSY5ydTIiQPCb WMEbWXQlXSXhl9XmEEJbua 48OBHjXjtawIcgJYHbMk6z Mv7pRLZcmhUnMHT0OrOFOH 6xfgvpsGUjzJbkfy8hUQnc UJRZLOOdVUBuVEC8DECnqB 4tBGP6fKR5OIJ1W8qvW8ad TXPzdmHvKF4zSYCfiZPbos UpPXwiTT2atFJqZUAst9Qr vqarUXEbCVI4SMR2DJrtET RlZWArCc5nRDMpyU3kP3Jl IKB2ysZys9QdZgMQyNPneD 91gTAdqw71DOGaITTiO8Tk ZGVkIGFzIGludmVzdGlnYX Cxd60ebPVbxdHrl6XagmMa WDDdE6pfBSItzQTsrXPlr6 QxgM8szOIubkOvMDJ1pHTz PIVuxJ2uLGIybTezJXEbsL 9eU1AtTOsmHh4uROBifxja WM9ulx05MW3qwdNnYG9paq JvZK06zyXwLqTwURz1GKtV DQdDUQn6KERusnAiwIZzvB MbYOTjgG8olMLnRp4ggJHc aWdoIGNvbXBsZXhpdHkgY2 ibftsbMYdcuOJak0HjiE0d tGM0KCR1hQ0eKuksRIL7 Gross assessment was [facility] performed at ([facility], = 2777) Department of Pathology, [address] [place] [address], Technical component was [facility] performed at ([facility], = 2778) Department of Pathology, [address] [place] [address], Professional component [facility] was performed at ([facility], code = 2779) Department of Pathology, [address] [place] [address], [facility] [id number] 05:43:00 Test Item Value Reference Range Interpretation Comments Case Report (test code Surgical Pathology = 104) Report Case: [id number] Authorizing Provider: Melinda Redding MD Collected: 05/10/2020 11:54 AM Ordering Location: [address] Received: 05/10/2020 12:35 PM Service Pathologist: Ruiz Retana MD Specimen: Abdominal, peritoneal mass biopsy DIAGNOSIS (test code = [id number] 3220) FuZzEwMzNcZnRuYmpcdWMx IHtccnRmMVxlcGljOTIwMF zldzVbPYRnuSSdZ8Yusuim IWojJP2eVP4wxOhzeRGqsB GvMVYnSnVii3sxw292hFAs u6scXTKTyyqgmMf1yClqS5 3tz5N9VcajV42aoQUfLGde bGFpblxmczIwIFBBUlQgQS ZIHXEPBK6CTDDCMF6VR5Ee GAKGQ3VMAEvndHJiIBKABj LJNCUTJOhdD3DEM0aWI10Q YyibDYQvM2AKTRIBZCnBA3 IAZSVzE74DEYXKWZ8vwCCg qHtaqmYoYRxhc8BmWCacJU CkFX7vmBshCYLwPY6gDUQn J6rfuM6hkny0MyCwANFqSl O0ASThodJ4Bku8HCGqZCrb e1npw0UjXZRpZIc3eItbBc UaQVUbg5lrglHrCsYnPGWi OFQcVENxpSJfE277k4zmx0 yhkeAixPK7BDIuABF6TGds lpDxqoO4OLvebKGpZpQ9PO tccmVkMFxncmVlbjBcYmx1 GUAiE542GFQ2uWhry8tzWU M5RXMfLLSlWlWvLn1mgSLl E321UYJaTFZCJEJvdQz5US TztwHhebMzmCONo970O448 o1wbVSNqdlLveCgAbtqie4 ekD277GXUttVXqxcVpFmRu CUNckJFhoES4GYSiHW6jrf jiUWnsPSxtBTWwdrN2ENCv zJMzY7FjLJWsJC8fmbqpCP Z7DRqsABUpPZV5EiIiFTMw j7Ixzot5CaOshf5plf88SB U4y8LvaJyxUMS4FJX7NkNw Fd6cyIKqFRVxRJ0cFmZaoG GxKZPtng35nHlwYVatYKT2 PIOokaTen4Owx3ykQiTvna XkM8raI8XqUQHjDRDtBEBj GiOozrQwq7Jmo8BrmVYpvB w5s6llCIGrGMOviTeal5xb BLN7HRSipGHfO6wviB5wNI CvHX8smryte7ghORaeUHda ZDNxqLR4noE8TNZghQChG0 MnjR7pUVCbYQnoEQPamqt1 FlSlEz9ndDQjyRzaOAvgCo twYWdlXHBnbmNvbnRccGdu ZGVjXHBsYWluXHBsYWluXG YwXGZzMjRccWxcbGFuZzEw MzNcaGljaFxmMVxkYmNoXG DxBWzrP7leZzGdPxNrKeo7 YRQtaOFtWFStWnt3HRMmbF HrFMDNgXcvrC3vSZPutQrf eI2saBL0RPAmxkVjxVOVeX 9qBHBRqI4qTjR4WrQkNtK6 DYN7RJQgnZLysX7= COMMENT (test code = c8kwuCQcKYBhoAN1WzMqKH 3356) Gms9uxe9TjiOAclGScIYio oYObegHued43gAU9mH36DP 1qXKFxDxP7UOEsccZ9Vnh1 WMDlSZJtqYBfD787l9gya5 vymiMmoPW9bKuzYYWiYAXp SJeeRGMuDuIxTZixjQ4za4 zhU1ZrFTImC7Qcl45xHDIs tG5jx5AhIJYlFKYqJ55cQY FxEVBbxXByOqeffMJ9VW4h CVGof4R1QIBgnjBybAUxWC HgsETeQUY9qOUutQglgfUa bg04qYCvnAWbs2PsJFEhJJ X4dQ3aiiNcYCspxmOhWJQf AMTxY1riLGIsE3MaiRPnk2 DvrT0ms1d2PaPYyG82nz5n wJK8l6KaPN0hU2DpOSQ9pH TfNHDssYQtUi2fiQKfPV6j PPAod1XiBCPgBFDprC8lp5 ZtDZEyVPFbZAM5dC0xstDv FTnjljD8ejNtSPRyo9IkvI j2WJEhi3RgNCRKCICzrmNo AQ3EG8IeHWOezMXnwFzajS Psd3m8zLA2wCEsenKsf7J7 YIHyV7lhqoagEStiiRpqiV 3duRCfGuLoLQ4wmYEyZEpw XBAcmrVfdo3oMP0bMVXdpa 0= CPT Code(s) (test code d1awwNUbRPFzzAQ1PkPhFQ = 3357) Euw7ddw7XniLIehIKkTGaq nANjkaXyip07tYT2mZ05HO 8bANWqPwC6KURpznB4Jll0 ZEAjBSXymNNoD967u6mqf1 eojmQncMF0hLilDXEzTNVy YWluXGZzMjAgODgzMDUsID w5EmVwSKC8YRQ8TTynGDD3 CLINICAL HISTORY (test q7nfhXCzMBDdfCAjOaQrHR code = 3356) UzYBDxs9hrDXDsvGChZqDs MzNcZnRuYmpcdWMxXGRlZm Ocq5wcq213oKDrs3rkZGKk ZwM4aJDuPTMfuFNzU192s2 lmc7bzhwNpcRT7CYCbOVF4 HCdtwhDmtyM7CDmdqCGuCn Q9CXchelKxIYysvnAeetPc Him7EBLpQ041AYX2cZksi7 wuCSY8AOYeJQUxNhUgBo4e eVUyG962QTOgAJGHBRPzbC s5FIPhhgNtsrSxoVWRj788 D199z2udLTMuuvZisYzBzt dga8akX787KCBmcSQjypPq HxQzSKDkoDFrlTU1UHPpDY 9wtzyxKyQoDG7xgowyAbKi GN0tqnc6ReNkMN8bpiczAp VeREfxUKKyjxvkKFHwp7Wa cuboTE5wS4Jqj1Z4cE1cnX XcYTZaiGPtDkTuJGNldn4e iKZmRXjxo4OzIET3pqL9mS XiaAYmIFQiCJ15Qddpv8Tc LifrUDV0PERaigOfv3Jmz8 tyAcDzgvImV8vmS6KwEGLd JTYdCCHeNyDdhkToy6Vfw9 DmeVGaoFv6y8ezEIEsGSWu kMzwo0hiYDN1HFHnR3P5qJ Lhg4gkHFtcSMNfqKL5jytz IWvsZHUbcrY9cukhWLerQQ LlsFM0wyafKSuxWSMfIhE4 cfhfDXjjGABcIWS0FJjre3 25UZK1KIjiXrywRZgqNNXz bmNvbnRccGduZGVjXHBsYW luXHBsYWluXGYwXGZzMjRc dDeepTgqeK4gGcOnChFfDD buMP4oODPqQ5luoXKaNRPd EYToY3fdIrDuyW2aiFkjUW olwfEsQYXiGVBdFGpcTP4a UYDvxUgneaPctIlxqV8toZ 5ccGFyfQ== SPECIMEN SOURCE (test f8ajwQAgNLDlqIF9SbNxLT code = 3377) Cbf6uex3BotYYwgCQoFTmc pFEbbgEarl25cBT8fA61WK 7gESFhXaD7XZQggsK4Dls7 MOPvOFZcjPOvV090g0ojs0 xiarQjpOS5jMsjUMMyKQDl YWluXGZzMjAgUGVyaXRvbm VhbCBtYXNzXHBhcn0= GROSS DESCRIPTION (test e9kkmJXlMKRtnQPaKoZaAN code = 3366) ZuELZvf5olHZEgvGGvNyMm MzNcZnRuYmpcdWMxXGRlZm Azr3hde342jXEdx1joNQRr SnY3cDEgSSXufVMyS202l3 utj2bjksEwdDL3NGZoRJB8 YByisnElktV0DApxuUPhMn R1PUbkiqJsTBizmcUbbyMy Hbf2UAMaP559GVL0aPvtk5 brNMZ4WEZxWXEuCtLhKm5o vLZoP936GAYcXCLJBOXpfG a4PFKfxaVwfcFxpANLv288 Q499l9tgVVMdptNmcHmRke acy3fhF633KYOmfYOiwjYn DpLqRZKolRXauQP8QKWpMP 8wsctxRfVaJZ5yclvoOcCq WH2icmu6CsZgMQ5ubeglUm YoXTilNDWunwelAVJha1Qi rsgiAO9aV5Kin0Y8tK9kgQ WbXFHvyHVuKlJrFIUbvr8o qRYdTIolu1EjPCB5nnK1fX EiuXHmRLQnGB76Xwkui6Vd NjjsPZW8QLNqzdOht9Ecr7 hiPmVndsYaZ6ysA2LlLPCb ZETuXWOxXhGqpaIov2Wax6 ThsQJjaXo6n4phQGBvOEKi jNtxz8rrJUB8XANhH4I3uE Xxu3gwQUxvSLYorLP1ldow KKvvZNAgeqD0zufrDLriNR RekVL1qdrbFGkpRILrAcG0 bnfgOWgwVASuGOT3IIsbg5 00UZN8XYybTlwrBNcjYATs bmNvbnRccGduZGVjXHBsYW luXHBsYWluXGYwXGZzMjRc bHRycGFyXHFsXHBsYWluXG YwXGZzMjBcbGFuZzEwMzNc aGljaFxmMFxkYmNoXGYwXG ifT0upWtJzZnJjLMUQGHWn pKCyDETsiiHqs1WnUWnept BsYWJlbGVkIHdpdGggdGhl OMDddDnkmzUuduKpZM8zRJ VjHWLdI8XeNHLnT07jIPMx kF9aOTJmWD3yLKInHcOpcX jgCAgzMZZyISJ8w60yqImg W3MaEN5fWRPbyy08sYi6JU Skn6K4AMBij0D1CBD0zGR3 AP8oEIJ9ynUuFG58XPkbGU 81XTweAY0sZJTmFXsmDVYj J4RxO4T6WQ7iBKbkFMIrXH YwwVRvMFjyCNP6De8paJXt LRChhaT2c7UtVHCcoLzqs1 vmYcLjfEv1ruE8vS7wWWzj AIQin4WuvOFhISOhQvWTWC IvZXcgXHBhcn0= MICROSCOPIC DESCRIPTION l6jhrLBmOQBctFK7InBhPU (test code = 3371) Oki2xcy6UscBHlxNJmNRqf mBEmuhLxjj47qYV6bW75BR 5dAQQoWbO7ZKXucuZ8Rmw3 VXTgZEXvlSRaT529g7toq4 edrdEyxOQ5wVctRCUnXAPy GHliVZVqMtLiWTRtPs6clA VkLiBccGFyfQ== SPECIAL STUDIES (test u6kcuUCyWGPdpHF0MeZiDI code = 3376) Ruq3bjc0ZbqOYqsNGlPFuy nMVhblFchp46zGP7mZ77EV 5mQVVnAhL5PJCjdxQ7Jyb8 HHPrHCCifZFmI480VNOdVW XmcPwcmsw4pS19OGXkpE1w uNCxTFo3RGVsadUzcRvxvQ 3vHbYcUbOfIhVEfYGqlE63 COCjjyC7AKCrg74xs8YgcZ xkzcKiODGqNRudK5z5TNVj FFIyIDL9d5Mny5UadL9pgE 9gvHqciS4xpCViuXO2iobi h9Ibq7FjL6otvERsbFYpuj SuRSBhiaURBO8IVqTRKC2r WRZJMEqpNI5XH0HejUXcYF UghcPny6ibR9puCDLuIDW3 YG0yckDmKcKzAI2asK68u0 Oep29qv94rpN3hyCAfsdJn S43cnZIsgSTms0JoWBXcco YlrAV3CYLvYThewfvfc9u7 uCK2rYThnBZgiSS3zHOmoO AjSRAScHVyWTIbr429yy3d VYAnxVWczbUcpD6wXLzmxv nzuIKtZN4yNGTgZCWxHNRu SF84rbBtVS9zfDDym9cyhd GkxWCxu7FvcJN8OFZypIBo aubrRw1vKT56GUInUTikiY 0ylMUofuXhUT9vJA8jN5U3 lXPyXQTzasKas6ipBSnbTM 4gYXZhaWxhYmxlIGFyZSBl eyTqxNI6TSOyvXEbNFZiaW PgDZajxRLwi7bwp1ZnZ8kp kMafqGI0EFTgJ7uehLRdwY O8JLF6kO6wDWdbvrIvNJHj o0ClGEQjKTLcMpZ6wD2pQM P3WrSMmWowXKP3VcJ4DFab HSMxUN4gBZllTRwwU5ByxT QcHRDLJLCak5lxU0suPQWn f8FbjD8pxVS7uUSzQZZydX W1EVBsRWT4NRpzuWDlJBJs EMJwuZPptCRrXg4jvERsP0 XiA1ryzkWqzIGkfLW9eGEe HGrlhjKeUAN7IKUaqD7xVK 1uVOMzzHKaWG3whQUgHWDp BSBrHZNxXLTeq5MyLVWlxg 81AFOzTcyzoCyzWEUpKx4x Jc4fDKKsafXbVGC8YgEMVS 0karhdmSFciCvltb1eLKah JOIMNLYiBDEvXGU5FDOldI 7eWGA1xXD1NXC4O6mzM3gd ZTQicqYaSH3jXPDowZYeio HnWAgfKL5vvLHgCYUfd6Lk rlfdRFZgJBY4OBT0QGpaQX FqKTNuKx3mFCIozD3nD9Ih ZLT2yePrr4ChNqQUaKZxvB 22iRPyia95IMRuMIPaL3Uu ZGVkIGFzIGludmVzdGlnYX Pwj35rzDZchzFoy3GipnLo TCWzC6hbOFRdvKUtqGKnd2 XxsT2zfJPyjiXdFNF3kBHj PQQqrS7aVQOuvVnbYJTqwG 8xT9DgSXqeIc5bIKFfdmlp NW6qqb85ZN2zfhIlTJ9vuz XnQD29qiMrFeLoXKy8EXtK IRvDAJo1TDNrciHluIHdjU AtBFPzhA8zxTBlVu8mfVAw aWdoIGNvbXBsZXhpdHkgY2 qmrxomOQxroCEli4VwsY7j jYL9IHT9nY7iCuhzJDA6 Gross assessment was [facility] performed at ([facility], = 2777) Department of Pathology, [address] [place] [address], Technical component was [facility] performed at ([facility], = 2778) Department of Pathology, [address] [place] [address], Professional component [facility] was performed at ([facility], code = 2779) Department of Pathology, [address] [place] [address], [facility] [id number] 05:43:00 Test Item Value Reference Range Interpretation Comments Case Report (test code Surgical Pathology = 104) Report Case: [id number] Authorizing Provider: Melinda Redding MD Collected: 05/10/2020 11:54 AM Ordering Location: [address] Received: 05/10/2020 12:35 PM Service Pathologist: Ruiz Retana MD Specimen: Abdominal, peritoneal mass biopsy DIAGNOSIS (test code = p1ufsYLpEUPje5xwWZXhrT 3220) FuZzEwMzNcZnRuYmpcdWMx IHtccnRmMVxlcGljOTIwMF yljaCvGYDzuYTdK3Dueanu BEhyFU6qBD7csOrdcNUiuD NvERGnTkSiw4wee517lZNi e9lcCIUQbeuuhXa3uGmhL5 6kv3C0LwpkV06ceNEhQJzl bGFpblxmczIwIFBBUlQgQS LBVAFZHS7GRQVCIM5UO3Ov IRKJR3FZKMztbSGmTUKFVr WMUCJATZooQ7EBJ7dZA34T ZuewKYOeK3RNKSFQOXtXM6 UVPMWfL51ZEKGRQF7dvWDf mUqovaMsNFejs9RaPZugRV RrFJ5avFtoSSMqUJ5uTAAh F7ulgT3tkur3ZyEiMRDoYb T0EDCcgtJ5Vkp3JVQdLNel q1vif0PaDXBqIVm0oPtgHg HbKOEpj5ziqpYxBcTiEQHk YSNsJSKhrYVzN127t8txc1 ijmvXnzJU6THCkNHO0BZbi wpIqpbC1DGzvjJIvTjG3JD tccmVkMFxncmVlbjBcYmx1 NPNrB695GFV6xMeja2iuEM T7LCYtOYFaFgJbKh1ktPUu M633TKPbBTBMWWZcbKg2ZR AvthHmpeIfnZUCn998C135 n9ygIVZpspCzsSgBkigao8 qzY279TYTdfTVcqqCtCwWp IBEeaGKaoFU1PRCmQZ9pyt ydJIejFSysLEXjnuQ1OISs qNNwB0ZpTWFgLB9arxwtWH L9VOomBENxTED9LqZlDAXq w0Cwxjf8UaYanw4jlx70BV C5c8ZpwVmgKGB1LTG6KxUp Iu5jaZDfIIDsMO4hRuWpxU DdMIHrwo96tDtySYvzFGC5 SIImotZzi4Wzr1eoMhNpuv VdF4etS2WnQRJmFQYzDWLw UlAffcHhv7Ywf5MzzDUlrC p6k1isYANqHJJmjZbhd0kg NUL3AIRleAPvX1dscZ8rUF HkZR6ofdngl8oqVShrNUtp FUTycVY8zfS1ZAPtdZNqV5 AvzF4cQUNjQNdgCORhdif4 MiZaKs6xpHEinSxgCMydSl twYWdlXHBnbmNvbnRccGdu ZGVjXHBsYWluXHBsYWluXG YwXGZzMjRccWxcbGFuZzEw MzNcaGljaFxmMVxkYmNoXG YvCEzfN8tyOlHnRoYfHll3 YHPqwJHlFTBsJlg0GCSzlC UtSLDQdOxqcS8rRQFykLkt iL0bvHN3LPFpftVklMFKjQ 1hWXTItI6sCaL0OcCtZqK7 RXG0TADiuNUtzY3= COMMENT (test code = c3chaTJpYBQawHF9FaRyRG 5751) Vtj9vsl1SagQQyyOPiUMjt wZDbmpItsd15dBP3wQ13EY 0qOLUnJaP7XFRipnE9Khk1 DXEfPLUxyRItV736f4aki1 hrllGfsLY8hNrnSAOuCPIc PLmzCDKjLeUaCMjaiQ9cu0 ooN2CwHTJrA5Zwe10mATUd bZ4qc7DkKQPjEFYfL90kSM LjNYQiwCTvQyewhST2IM2q EYEag1Q3KBOkrsRblZKpYQ AycQEzGDI9qJQlhVxxraPo fc46bPVedTHuh6RbFXYhYF Z4nK9tnnRfGIxpovVhFDPi PJZqM1xtIECeY4ImqCWqk8 VtlS7ei2j9SdIGfW29nw0l jDX4c7JxIO1dH8FuBWA2mY HcSFSshLYcIp8kdFPlPF9e DFBhd3ZhXXYqMIWixO7tc5 OnVTLhYSKdCFJ2vI9zyyHv IDntucM8lgWgIWUcl2LakH l8MHQip8DkKWVZIKQptcCi XL2JK3WrNDDxxNXnzNfrwL Zpx9m5hQG3aRQanmYeu8T4 FXRdG2jaxdlgOSyefMkgmT 0bgXJqJmWpRS0vsCAdLJff NLKdywXobo6zKT6nWMIowc 0= CPT Code(s) (test code x7yfkNGrZIRqvUD0HfFrYK = 3357) Lrt7zit7DdkHAibFNoFMjc iFUxvoZtwi58qTH1xE32MC 6hJUEeRkW9VBJuxgT9Wlw6 QQXkEXFwbGUhM673y5qsn9 ktpjIjvSD1tCveREWbONJn YWluXGZzMjAgODgzMDUsID j6HyWhHKO0VLQ2JZbdLGL7 CLINICAL HISTORY (test y4vbpHQwCLWxgJStBbPpAS code = 3356) PvAWCgf7grFLIygAThNiHg MzNcZnRuYmpcdWMxXGRlZm Kms5tou334dWTis6nqLYRf StW4vSLoIYPhiTAkS281u2 rem1wqnpGcrSD1QYKgSZY6 NVfsuyReytT2OZrrrHTbFl O5BPzcgnGuDHxorlQmnpCq Ntx0JILdY540BMA3oIfzf2 fiKIL1WQLpTXNqPtMnEa6a aGCgY651DBIkFZDNIYQmqS j8HDNsjsKirxGapFKFi531 C619i0awFRFyhmVtzGhUbp gkp1swP302QEHhfQDvhxBf JqDkWLDbiGCysEB7NTGtVU 7ucjfsJdKgSS1uormqPoZq IX8snei2OyNrAG5yswhtZp ZpCNclRFOocrtpHKMnp1Lb dlbyPW7oH0Mjg7F2lI8xkF GiBHJhjFBmRfGfZAIkxp2y xGVpBInuw7VsUXP6meU9xP AksOBlSQCcUX57Elmof5Zn KngpYUC5VMTbrhPfj8Pag9 ggGyGebfSnR4lxM0LuZSCj RMZvZPCpLdPiniHmp1Amt9 GmiINztRl4i0bpZKAmNZYn fJvfj8fpSXR2XNVlW4L4qJ Whh8tsMQgcRNEezHR8jays GCidISAtrvU9czxjITuxYB XofJY5lcibDLfkDUHiQrW4 awpyILzxYFWoJVL5CVrdp0 41CFC6DPrtAwglVCgaXPYy bmNvbnRccGduZGVjXHBsYW luXHBsYWluXGYwXGZzMjRc ePvkdZihxQ6mUdVrLaLoTG yeCG7aFCRlR2awmJZtOWNx KQNiV1emOkRraC5wfBxyOL falbNsELQyRSGsVQndSM1d HGGccKjrwgTyqJaleW6ygG 5ccGFyfQ== SPECIMEN SOURCE (test z4qcmFWzVGRtwYF9XnDpQT code = 3377) Iui0ujp2CfrJFzeNUiRIiw lYCuxwMlgk43oYN7fH34OQ 0iZSSdBnT6NURdjwN3Gev6 YTQiSWArjHVyD455k3euf9 myehDfpSB2xWyzPRVgZBYn YWluXGZzMjAgUGVyaXRvbm VhbCBtYXNzXHBhcn0= GROSS DESCRIPTION (test h8urzRWwWDOnmFBpOwBtSJ code = 3366) NcXZNzp0tpCUIkuLYaFhCh MzNcZnRuYmpcdWMxXGRlZm Rnd9sat542wIGvl2kuMXSa YyT1vNAiGMXxsAEeU717q4 btr5qqqjBgrLL9WEAgGVI7 GRjfepAdzcS0NEnhhQYoHu Y1FWtwxkHrMGabtrWfrqDa Iuj8BDJcF279JRR8fWdbq8 qlGZW5NCXkDGBpPoEaDs2y mLMaK787HAXlEUADVMBciO z8RZJdvpOeitJauQQZy134 Q897j6tmAFEnakXigUrKug hxi2rwF189PIEhdFThorLk ZtAbCSCsvXVwgXC4JOEsNY 5odkpuGdSsRF3aefqxBrFg FF3yktz3WyShVR4dzcztEy VuCVheIQAgkwufORHqm3Tr pfonUQ6tB0Qfp6G0pJ9qkL JbNVOghUUeAbUfLVCxtg5j xBGqEYtmk6NpMEB7juM1kR SzzZGqWLAyZD28Beofa5Nc OjgzKQY1SWCavdTzn7Onh4 vgCgVgttJmM1gxD5HfDAOs CLLgNSIkEtInszWue1Nou2 IyuORlfPb4d4ntIGZtEDHc fSnib9caQRQ5ZDLnX3A5cL Xet9evYKpxANErwMF3tkxj DKiiPMJlcqV2tdvjPDpnGU GrrPJ0wfloMWmsWIGgHdQ5 usllPDlfQOVdAQK5OJbem2 82PWQ6VOniOmmxXUnfNELo bmNvbnRccGduZGVjXHBsYW luXHBsYWluXGYwXGZzMjRc bHRycGFyXHFsXHBsYWluXG YwXGZzMjBcbGFuZzEwMzNc aGljaFxmMFxkYmNoXGYwXG yuE3avNiJsZrNeBEWZKIZe dRTpOSDfotXyx2DcSGoqyj BsYWJlbGVkIHdpdGggdGhl XUHzzZoaswIgltXkHI4nYR LlEVQnE2YcMEFrA66uLCWf zR2tQMFkJF4eXLXiFrOxvE wsYIkkIKRtBCW9j62iaPgd S8DrAB6iCOOmwb07rWs0KV Ird9F2YJPez9S5RSR1kGY4 XT7yZTK8hmEzAP91YWkyML 54WQieFR3eSSMfUWdyAERe O6GpF8F3UQ3lYHlvNSEsRK HnsBGeZNmjHIE8Fb8jvNPi ELWvhsQ0q6UuOVXgrMrkq5 gvPbMeoRe0qkX0kU4nHWwh BNDkr1YbhYBaXYPdTiQNVP IvZXcgXHBhcn0= MICROSCOPIC DESCRIPTION b3mopBXjIYRinDV9KoPoPO (test code = 3371) Nvu9cxb8UsuEKrhGCyCWqe uVDabuYqpg62rDZ4wW84PR 4pOPMmYhB4LBCrliA7Rfh1 MLRcGCFypJHfG076n3vfw4 wsaqVuuAB5mVzdKHKdCABr UCdcZIEiXrEsQJNsCj6qnC VkLiBccGFyfQ== SPECIAL STUDIES (test g5uuoSSzGLWmkZU8JsOeET code = 3376) Ceh3fyy2ZbrDClsYIdPUok rHRycyYgsg68sFG8qZ44OU 4kMFOvCuY3OGQucnA5Apw5 FGDwCVWqvMDnG027UNBkZQ RhdIxsfmd7vM16GFBdhH8o fALnBBs2BVBogyGxvKupbU 2wNpKdAfMfHeUFwCHmwN37 OGCpqxK9EZMxs68dj0BhpB hojkMdXUMxPKoyW4p3GDSc NWImNEA0y0Acj2GmiY1ikA 0xpYrlaX8ilSDhrYL9kmnf j1Gfo6ChG6btwPWwsXKngc FhALMddwRTLW4RIyVJXJ7q GYWKBCkwST5HQ1DbiGTtXY ScdaLkv8kcL3okBIQfSMN2 JH6akmHhZpHiGP1kqN95q9 Iix44is33pqK9hfWCcksVl M09hqVXhySYhs1ZeHMNetv BbpMX9BWAmPJaibgzlh4o4 uAW4wSSdoRNhiZE3iFAxnX UtCPMLnUCoAZEug553vo0j QVGdrCJicpIryV9bCXmmnv rpvKCfPV1pAEZeMPCaZUJw ZU81krKiAP7cmWEau0wozq UobMAhh0DuaDX4CRWhtUWu hsxaEt1tGU39HTAlHJcbwQ 2caGFoxfUrAK8uJR3nA2E9 wATiWPOtojHek0ggJLsaZX 4gYXZhaWxhYmxlIGFyZSBl ydJqqUR2SVVxdTLjAYAavO NyZXgjpVExn0lum1TkX8pz dViyvAT1ULTlF2akfRHxmQ F8LNC9yS4bEXokyhJnFRXk i3NcYFZdHIInDnL8zI6cXS G0WxMTwIzxTTU5DkY4UNjd UGTdND6mKJxiDDqeS9IbgQ QyYOFLJBMtp9fnL4ssDPTa j7BunK1mjLJ8sIGtTVCmyU C7ZXTzBLF3KLfppBUcBZUl FTSciOZiqHGiKj2afOSbS8 UpA8fhobCfeYPzdXO3lPUq BHyipyCvFXG8ZPHrjM6tZZ 5qBJTiwCWgII7teCDtUDVh SQKjVNZcXOSsh3QmZTJdkx 40GGKnBfvevPdiERVfRg5b Ob1bUHWqmxBqCHY0SyFJIU 6nbwiaaEDbfSbzbg1fIBqw PVTNFFXrEEIkSEB3YTPusB 5lZIR2qGU7PBG2K7izY0rj HPBbidKpDF4hZTDpvQJflz MiCUnyVT2bgFDcTUOye2Wy wwspRWDvZYF2TFI3TVeePB ZzGNOaMp8lZZMtnA9lQ1Mp TUB0moOup1NfWzAMmVBgzF 82sOLmza31LBQhATIcT6Ww ZGVkIGFzIGludmVzdGlnYX Zhk85piCQsozMdf6RazuTq MSUwR9ggKHPuiSZrgCAnt4 TtlP9hlTIqozWbVRO8mOCw HQZepB8cJCYqvAppZSXvnO 9qY0TeKTzsLm9hKIAfatxx RQ0gtt22IV3ahyYvLC9tzg WnAT67skEiWnZbWBs0NIoP UTuWOSa4UJCjvaBroXRkeX RoBCBgkB3mqOQbLc4hbEJr aWdoIGNvbXBsZXhpdHkgY2 ublqlkIErkeLQir0BgmI6o xQG0BWV0bA2jAcjcSWR1 Gross assessment was [facility] performed at ([facility]ly [facility], = 2777) Department of Pathology, [address] [place] [address], Technical component was [facility] performed at ([facility], = 2778) Department of Pathology, [address] [place] [address], Professional component [facility] was performed at ([facility], code = 2779) Department of Pathology, [address] [place], [place] [address], [facility] Center[facility] [id number] 05:43:00Surgical Pathology Report Case: [id number] Authorizing Provider: Melinda Redding MD Collected: 05/10/2020 11:54 AM Ordering Location: [address] Received: 05/10/2020 12:35 PM Service Pathologist: Ruiz Retana MD Specimen: Abdominal, peritoneal mass biopsy PART A PERITONEALMASS, BIOSPY:RENAL CELL CARCINOMA.SEE DIAGNOSTIC COMMENT. Signing Pathologist Direct Phone Line: [phone] signed by Ruiz Retana MD on 05/15/2020 at 5:43 AMHistological sections demonstrate a core needle biopsy of tissue involved by partially necrotic tumor. The tumor cells have a clear cell morphology. Immunohistochemical studies performed on block A1 demonstrate the tumor cells to be positive for PAX8 and AMACR, compatible with the reported clinical history of renal cell carcinoma. 09964, 68754, 59[address]Fwugn is no patient history.Peritoneal massReceived in formalin [...] areevaluated Immunohistochemistry technical testing was performed at [facility], Pathology Laboratory where it was developed [...] qualified to perform high complexity clinical laboratory testing.[facility], Department of Pathology, [address] [place] [address], [facility], [address] [place] [address], [facility], [address] [place] [address], NL, BIOPSY, [id number] 18:04:00Reason for exam:- >peritoneal mass biopsy, h/o RCCFINAL REPORT CT- guided core biopsy dated 05/10/2020 Name of practitioner performing procedure:Laura Hannah M.D. Names of nurse assistant:None Procedure: CT-guided biopsy of omental massPreprocedure [...] MDReport Verified Date/Time: 05/10/2020 18:04:09 Reading Location: [address] Body Reading Room CT biopsy [id number] 18:04:00Interface, External Ris In - 05/10/2020 6:[address]-guided core biopsy dated 05/10/2020 Name of practitioner performing procedure:Laura Hannah M.D. Names of nurse assistant:None Procedure: CT-guided biopsy of omental mass [...] This exam was performed according to our [facility] dose-optimization program, which includes automated exposure control, [...] MDReport Verified Date/Time: 05/10/2020 18:04:09 Reading Location: [address] [facility] 18:04:00Interface, External Ris In - 05/10/2020 6:[address]-guided core biopsy dated 05/10/2020 Name of practitioner performing procedure:Laura Hannah M.D. Names of nurse assistant:None Procedure: CT-guided biopsy of omental mass [...] quadrant abdominal omental mass. Signed: Laura Hannah Verified Date/Time: 05/10/2020 18:04:09 Reading Location: [address] [facility] [id number] 18:04:00Interface, External Ris In - 05/10/2020 6:[address]-guided core biopsy dated 05/10/2020 Name of practitioner performing procedure:Laura Hannah M.D. Names of nurse assistant:None Procedure: CT-guided biopsy of omental mass [...] quadrant abdominal omental mass. Signed: Laura Hannah Verified Date/Time: 05/10/2020 18:04:09 Reading Location: [address] Body [facility]As[facility]omatic ONLY)2020-05-10 08:23:00 Test Item Value Reference Range Interpretation Comments SARS-COV2/RT-PCR Negative Not Detected, (test code = Negative, See 24682-6) external report for linked test SARS-COV-2 [facility] (test code = 85515-5) MATT (test code = Negative result for [...] of the Act. Fact Sheet for Healthcare Providers:https://www.Zeptor ideHDF.[employer]s/sites/default/f alber/product/documents/F act_Sheet_HC_Providers_L fon_YKXL-ZfC-0.pdf Fact Sheet for Healthcare Patients:https://www.bMenu.[employer]s/sites/default/fi les/product/documents/Fa ct_Sheet_Patients_Lyra_S ARS-CoV-2.pdf Performing Laboratory:[place] [address] [place] [address] [facility]As[facility]omatic ONLY[facility]2020-05-10 08:23:00 Test Item Value Reference Range Interpretation Comments SARS-COV2/RT-PCR Negative Not Detected, (test code = Negative, See 33299-2) external report for linked test SARS-COV-2 [facility] (test code = 92124-8) MATT (test code = Negative result for [...] of the Act. Fact Sheet for Healthcare Providers:https://www.Zeptor ideHDF.[employer]/sites/default/f alber/product/documents/F act_Sheet_HC_Providers_L gaa_HJXM-UmI-0.pdf Fact Sheet for Healthcare Patients:https://www.GameLogic del.com/sites/default/fi les/product/documents/Fa ct_Sheet_Patients_Lyra_S ARS-CoV-2.pdf Performing Laboratory:[facility] [place] [address] [facility] (Asymptomatic ONLY)2020-05-10 08:23:00 Test Item Value Reference Range Interpretation Comments SARS-COV2/RT-PCR Negative Not Detected, (test code = Negative, See 41236-2) external report for linked test SARS-COV-2 [facility] (test code = 06599-1) MATT (test code = Negative result for [...] of the Act. Fact Sheet for Healthcare Providers:https://www.[employer].com/sites/default/f alber/product/documents/F act_Sheet_HC_Providers_L psf_CCDN-MsN-6.pdf Fact Sheet for Healthcare Patients:https://www.bMenu.com/sites/default/fi les/product/documents/Fa ct_Sheet_Patients_Lyra_S ARS-CoV-2.pdf Performing Laboratory:[facility] [place] [address] [facility]ARS[facility] ([facility])2020-05-10 08:23:00 Test Item Value Reference Range Interpretation Comments SARS-COV2/RT-PCR (test Negative Not Detected, Negative, code = 1397816) See external report for linked test SARS-COV-2 PERFORMING LAB [facility] (test code = 5805802) Negative result for this test determines that [...] 564(g) of the Act.Fact Sheet for Healthcare Providers:https://www.[employer]s/sites/default/files/product/documents/Fact_Haim bejaranoq_PK_Rjcwqwzsz_Gfkn_QHDK-QcS-1.pdfFact Sheet for Healthcare Patients:https://www.[employer]/sites/default/files/product/ documents/Vtqc_Lswle_Eahaxezg_Fihm_YZXQ-YcD-6.pdfPerforming Laboratory:[facility], [place] [address]Ktcgteatrxe time/INR 2020-05-10 04:37:00 Test Item Value Reference Interpretation Comments Range Protime (test code = 16.0 See_Comment H [Autom ated 5902-2) message] The system which generated this result transmitted reference range : 11.9 - 14.2 seconds. The reference range was not used to interpret this result as normal/abnormal . INR (test code = 1.32 See_Comment [Automated 6011-6) message] The system which generated this result [...] valves. Lab Interpretation Abnormal (test code = 16218-3) [facility] CenterProthrombin time/[id number] 04:37:00 Test Item Value Reference Interpretation Comments [...] valves. Lab Interpretation Abnormal (test code = 95656-3) [facility] CenterPro[facility]bin time/[id number] 04:37:00 Test Item Value Reference Interpretation Comments [...] valves. Lab Interpretation Abnormal (test code = 03490-6) [facility][id number] 04:37:00 Test Item Value Reference Range Interpretation [...] 4.9 See_Comment [A utomated message] The system [employer] generated this result transmitted ref erence range: 3.5 - 10 .5 K/L. The refe rence range was not u sed to interpret this result as normal/abnor mal. RBC (test code = 789-8) 3.49 See_Comment L [Au tomated message] The system [employer] generated this result transmitted ref erence range: 4.63 - 6 .08 M/L. The refe rence range was not u sed to interpret this result as normal/abnor mal. MCHC (test code = 786-4) 32.2 See_Comment L [A utomated message] The system [employer] generated this result transmitted ref erence range: [...] L [Aut omated message] 777-3) The system [employer] generated this result transmitted ref erence range: 150 - 45 0 K/CU MM. The referen ce range was not u sed to interpret this result as normal/abnor mal. MPV (test code = 10.8 fL 9.4-12.4 23652-0) nRBC (test code = 413) 0 See_Comment [Aut omated message] The system [employer] generated this result transmitted ref erence range: 0 - 0 /1 00 WBC. The refere nce range was not u sed to interpret this result as normal/abnor mal. Lab Interpretation (test Abnormal code = 51487-2) [facility]10 04:24:00 Test Item Value Reference Range Interpretation Comments WBC (test code = 6690-2) 4.9 See_Comment [A utomated message] The system [employer] generated this result transmitted ref erence range: 3.5 - 10 .5 K/L. The refe rence range was not u sed to interpret this result as normal/abnor mal. RBC (test code = 789-8) 3.49 See_Comment L [Au tomated message] The system [employer] generated this result transmitted ref erence range: 4.63 - 6 .08 M/L. The refe rence range was not u sed to interpret this result as normal/abnor mal. MCHC (test code = 786-4) 32.2 See_Comment L [A utomated message] The system [employer] generated this result transmitted ref erence range: [...] L [Aut omated message] 777-3) The system [employer] generated this result transmitted ref erence range: 150 - 45 0 K/CU MM. The referen ce range was not u sed to interpret this result as normal/abnor mal. MPV (test code = 10.8 fL 9.4-12.4 01218-3) nRBC (test code = 413) 0 See_Comment [Aut omated message] The system [employer] generated this result transmitted ref erence range: 0 - 0 /1 00 WBC. The refere nce range was not u sed to interpret this result as normal/abnor mal. Lab Interpretation (test Abnormal code = 85578-2) [facility] (Hemogram only)2020-05-10 04:24:00 Test Item Value Reference Range Interpretation Comments WBC (test code = 6690-2) 4.9 See_Comment [A utomated message] The system [employer] generated this result transmitted ref erence range: 3.5 - 10 .5 K/L. The refe rence range was not u sed to interpret this result as normal/abnor mal. RBC (test code = 789-8) 3.49 See_Comment L [Au tomated message] The system [employer] generated this result transmitted ref erence range: 4.63 - 6 .08 M/L. The refe rence range was not u sed to interpret this result as normal/abnor mal. MCHC (test code = 786-4) 32.2 See_Comment L [A utomated message] The system [employer] generated this result transmitted ref erence range: [...] L [Aut omated message] 777-3) The system [employer] generated this result transmitted ref erence range: 150 - 45 0 K/CU MM. The referen ce range was not u sed to interpret this result as normal/abnor mal. MPV (test code = 10.8 fL 9.4-12.4 11319-8) nRBC (test code = 413) 0 See_Comment [Aut omated message] The system [employer] generated this result transmitted ref erence range: 0 - 0 /1 00 WBC. The refere nce range was not u sed to interpret this result as normal/abnor mal. Lab Interpretation (test Abnormal code = 12551-5) [facility] (HEMOGRAM ONLY)2020-05-10 04:24:00 Test Item Value [...] 0-0 (BEAKER) (test code = 413) POC-Glucose [id number] 23:22:00 Test Item Value Reference Range Interpretation Comments POC-Glucose Meter (test 173 mg/dL 70-110 H : TE STED AT [facility] code = 1538) [address] [place] [address], [facility] 30: Email Designer/Techni vipin ID = [id number] for GUEVARA, ADEEL TTE Lab Interpretation (test Abnormal code = 69649-1) [facility] [id number] 23:22:00 Test Item Value Reference Range Interpretation Comments POC-Glucose Meter (test 173 mg/dL 70-110 H : TE STED AT [facility] code = 1538) [address] [place] [place] [address], [address]: Email Designer/Techni vipin ID = [id number] for GUEVARA, ADEEL TTE Lab Interpretation (test Abnormal code = 55485-8) [facility] [id number] 23:22:00 Test Item Value Reference Range Interpretation Comments POC-Glucose Meter (test 173 mg/dL 70-110 H : TE STED AT [facility] code = 1538) [address] [facility], [address]: Email Designer/Techni vipin ID = [id number] for ADEEL GUEVARA TTE Lab Interpretation (test Abnormal code = 32987-7) [facility]-GLUCOSE [id number] 23:22:00 Test Item Value Reference Range Interpretation Comments POC-GLUCOSE METER 173 mg/dL 70-110 H : TESTED A T [facility] [address] (BEAKER) (test code = [facility], 1538) [address]: Email Designer/Techni vipin ID = [id number] for ADEEL GUEVARA TTE [id number] 10:54:00 Test Item Value Reference Range Interpretation Comments PTT (test code = 18921-1) 34.9 See_Comment [ Automated message] The system [employer] generated this result transmitted ref erence range: 22.5 - 3 6.0 seconds. The re ference range was not u sed to interpret this result as normal/abnor mal. Lab Interpretation (test Normal code = 20805-8) [facility] 10:54:00 Test Item Value Reference Range Interpretation Comments PTT (test code = 84158-2) 34.9 See_Comment [ Automated message] The system [employer] generated this result transmitted ref erence range: 22.5 - 3 6.0 seconds. The re ference range was not u sed to interpret this result as normal/abnor mal. Lab Interpretation (test Normal code = 03718-9) [facility] 10:54:00 Test Item Value Reference Range Interpretation Comments PTT (test code = 70717-6) 34.9 See_Comment [ Automated message] The system [employer] generated this result transmitted ref erence range: 22.5 - 3 6.0 seconds. The re ference range was not u sed to interpret this result as normal/abnor mal. Lab Interpretation (test Normal code = 62386-8) [place] [id number] 10:54:00 Test Item Value Reference Range Interpretation Comments PARTIAL THROMBOPLASTIN TIME 34.9 seconds 22.5-36.0 (BEAKER) (test code = 760) PROTHROMBIN TIME/[id number] 10:53:00 Test Item Value Reference Range Interpretation [...] heart valves.CBC with platelet count + automated [id number] 10:45:00 Test Item Value Reference Range Interpretation Comments WBC (test code = 6690-2) 6.0 See_Comment [A utomated message] The system [employer] generated this result transmitted ref erence range: 3.5 - 10 .5 K/L. The refe rence range was not u sed to interpret this result as normal/abnor mal. RBC (test code = 789-8) 4.08 See_Comment L [Au tomated message] The system [employer] generated this result transmitted ref erence range: 4.63 - 6 .08 M/L. The refe rence range was not u sed to interpret this result as normal/abnor mal. MCHC (test code = 786-4) 32.4 See_Comment L [A utomated message] The system [employer] generated this result transmitted ref erence range: [...] See_Comment [Aut omated message] 777-3) The system [employer] generated this result transmitted ref erence range: 150 - 45 0 K/CU MM. The referen ce range was not u sed to interpret this result as normal/abnor mal. MPV (test code = 10.8 fL 9.4-12.4 90816-5) nRBC (test code = 413) 0 See_Comment [Aut omated message] The system [employer] generated this result transmitted ref erence range: [...] See_Comment [Aut omated message] 670) The system [employer] generated this result transmitted ref erence range: 1.78 - 5 .38 K/L. The refe rence range was not u sed to interpret this result as normal/abnor mal. # Lymphs (test code = 1.29 See_Comment L [Auto mated message] 414) The system [employer] generated this result transmitted ref erence range: 1.32 - 3 .57 K/L. The refe rence range was not u sed to interpret this result as normal/abnor mal. # Monos (test code = 0.69 See_Comment [Autom ated message] 415) The system [employer] generated this result transmitted ref erence range: 0.30 - 0 .82 K/L. The refe rence range was not u sed to interpret this result as normal/abnor mal. # Eos (test code = 416) 0.20 See_Comment [Au tomated message] The system [employer] generated this result transmitted ref erence range: 0.04 - 0 .54 K/L. The refe rence range was not u sed to interpret this result as normal/abnor mal. # Baso (test code = 417) 0.04 See_Comment [A utomated message] The system [employer] generated this result transmitted ref erence range: 0.01 - 0 .08 K/L. The refe rence range was not u sed to interpret this result as normal/abnor mal. Immature 0 % 0-1 Granulocytes-Relative (test code = 2801) Lab Interpretation (test Abnormal code = 30642-6) [facility] with platelet count + automated [id number] 10:45:00 Test Item Value Reference Range Interpretation Comments WBC (test code = 6690-2) 6.0 See_Comment [A utomated message] The system [employer] generated this result transmitted ref erence range: 3.5 - 10 .5 K/L. The refe rence range was not u sed to interpret this result as normal/abnor mal. RBC (test code = 789-8) 4.08 See_Comment L [Au tomated message] The system [employer] generated this result transmitted ref erence range: 4.63 - 6 .08 M/L. The refe rence range was not u sed to interpret this result as normal/abnor mal. MCHC (test code = 786-4) 32.4 See_Comment L [A utomated message] The system [employer] generated this result transmitted ref erence range: [...] See_Comment [Aut omated message] 777-3) The system [employer] generated this result transmitted ref erence range: 150 - 45 0 K/CU MM. The referen ce range was not u sed to interpret this result as normal/abnor mal. MPV (test code = 10.8 fL 9.4-12.4 66401-3) nRBC (test code = 413) 0 See_Comment [Aut omated message] The system [employer] generated this result transmitted ref erence range: [...] See_Comment [Aut omated message] 670) The system [employer] generated this result transmitted ref erence range: 1.78 - 5 .38 K/L. The refe rence range was not u sed to interpret this result as normal/abnor mal. # Lymphs (test code = 1.29 See_Comment L [Auto mated message] 414) The system [employer] generated this result transmitted ref erence range: 1.32 - 3 .57 K/L. The refe rence range was not u sed to interpret this result as normal/abnor mal. # Monos (test code = 0.69 See_Comment [Autom ated message] 415) The system [employer] generated this result transmitted ref erence range: 0.30 - 0 .82 K/L. The refe rence range was not u sed to interpret this result as normal/abnor mal. # Eos (test code = 416) 0.20 See_Comment [Au tomated message] The system [employer] generated this result transmitted ref erence range: 0.04 - 0 .54 K/L. The refe rence range was not u sed to interpret this result as normal/abnor mal. # Baso (test code = 417) 0.04 See_Comment [A utomated message] The system [employer] generated this result transmitted ref erence range: 0.01 - 0 .08 K/L. The refe rence range was not u sed to interpret this result as normal/abnor mal. Immature 0 % 0-1 Granulocytes-Relative (test code = 2801) Lab Interpretation (test Abnormal code = 43373-5) [facility] with platelet count + automated [id number] 10:45:00 Test Item Value Reference Range Interpretation Comments WBC (test code = 6690-2) 6.0 See_Comment [A utomated message] The system [employer] generated this result transmitted ref erence range: 3.5 - 10 .5 K/L. The refe rence range was not u sed to interpret this result as normal/abnor mal. RBC (test code = 789-8) 4.08 See_Comment L [Au tomated message] The system [employer] generated this result transmitted ref erence range: 4.63 - 6 .08 M/L. The refe rence range was not u sed to interpret this result as normal/abnor mal. MCHC (test code = 786-4) 32.4 See_Comment L [A utomated message] The system [employer] generated this result transmitted ref erence range: [...] See_Comment [Aut omated message] 777-3) The system [employer] generated this result transmitted ref erence range: 150 - 45 0 K/CU MM. The referen ce range was not u sed to interpret this result as normal/abnor mal. MPV (test code = 10.8 fL 9.4-12.4 07016-8) nRBC (test code = 413) 0 See_Comment [Aut omated message] The system [employer] generated this result transmitted ref erence range: [...] See_Comment [Aut omated message] 670) The system [employer] generated this result transmitted ref erence range: 1.78 - 5 .38 K/L. The refe rence range was not u sed to interpret this result as normal/abnor mal. # Lymphs (test code = 1.29 See_Comment L [Auto mated message] 414) The system [employer] generated this result transmitted ref erence range: 1.32 - 3 .57 K/L. The refe rence range was not u sed to interpret this result as normal/abnor mal. # Monos (test code = 0.69 See_Comment [Autom ated message] 415) The system [employer] generated this result transmitted ref erence range: 0.30 - 0 .82 K/L. The refe rence range was not u sed to interpret this result as normal/abnor mal. # Eos (test code = 416) 0.20 See_Comment [Au tomated message] The system [employer] generated this result transmitted ref erence range: 0.04 - 0 .54 K/L. The refe rence range was not u sed to interpret this result as normal/abnor mal. # Baso (test code = 417) 0.04 See_Comment [A utomated message] The system [employer] generated this result transmitted ref erence range: 0.01 - 0 .08 K/L. The refe rence range was not u sed to interpret this result as normal/abnor mal. Immature 0 % 0-1 Granulocytes-Relative (test code = 2801) Lab Interpretation (test Abnormal code = 48325-9) [facility] W/PLT COUNT & AUTO [id number] 10:45:00 Test Item Value Reference Range Interpretation [...] PERCENT (BEAKER) (test code = 2801) PROTHROMBIN [id number] 10:37:00 Test Item Value Reference Range Interpretation [...] INR is2.5-3.5 for patients wiht mechanical heart valves.[id number] 10:37:00 Test Item Value Reference Range Interpretation Comments PARTIAL THROMBOPLASTIN TIME 32.0 seconds 22.5-36.0 (BEAKER) (test code = 760) CBC W/PLT COUNT & AUTO [id number] 10:24:00 Test Item Value Reference Range Interpretation [...] PERCENT (BEAKER) (test code = 2801) PROTHROMBIN [id number] 11:43:00 Test Item Value Reference Range Interpretation [...] INR is2.5-3.5 for patients wiht mechanical heart valves.[id number] 11:43:00 Test Item Value Reference Range Interpretation Comments PARTIAL THROMBOPLASTIN TIME 23.3 seconds 22.5-36.0 (BEAKER) (test code = 760) CBC W/PLT COUNT & AUTO [id number] 11:34:00 Test Item Value Reference Range Interpretation [...] code = 2801) CT, CHEST, WITH IV [id number] 14:00:00FINAL REPORT TECHNIQUE: CT of the chest, [...] MDReport Verified Date/Time: 02/15/2020 14:00:05 Reading Location: [facility] C013X Ortho Consult Reading Room CT, [id number] 14:00:00FINAL REPORT TECHNIQUE: CT of the chest, [...] MDReport Verified Date/Time: 02/15/2020 14:00:05 Reading Location: [address] Ortho Consult Reading Room -[id number] 14:53:00 Test Item Value Reference Range Interpretation Comments POC-CREATININE 0.8 mg/dL 0.6-1.3 TESTED AT [facility] 7200 ([facility]) ([facility] 1859) [facility] 7703 0 POC-EGFR 121 mL/min/1.73M2 ([facility]) (test code = 1860) CT, CHEST, WITH IV [id number] 10:23:00FINAL REPORT CT scan of the chest, [...] MDReport Verified Date/Time: 08/01/2019 10:23:19 Reading Location: [facility] C013Y CT Body Reading Room [facility], [id number] 10:23:00FINAL REPORT CT scan of the chest, [...] MDReport Verified Date/Time: 08/01/2019 10:23:19 Reading Location: [facility] C013Y CT Body Reading Room CT, [id number] 12:48:00Reason for Exam:->cancer of right kidneyFINAL REPORT [...] MDReport Verified Date/Time: 05/03/2019 12:48:10 Reading Location: [facility] C013X Ortho Consult Reading Room CT, CHEST, WITH IV [id number] 12:48:00Restaging RCCReason for Exam:->cancer of right kidneyFINAL [...] MDReport Verified Date/Time: 05/03/2019 12:48:10 Reading Location: [facility] C013X Ortho Consult Reading Room [id number] 08:42:00 Test Item Value Reference Range Interpretation Comments POC-CREATININE 0.7 mg/dL 0.6-1.3 TESTED AT [facility] 7200 ([facility]) (test GAVIN BLD G A code = 1859) [facility] 7703 0 POC-EGFR 141 mL/min/1.73M2 [facility] (test code = 1860) CT, [id number] 12:11:00FINAL REPORT EXAM: CT Chest, Abdomen and [...] lung nodules when compared to CT dated 12/9/2 018.2.Postsurgical changes of partial right nephrectomy.3.1.1 cm left hepatic lobe hyperenhancing focus is probably a hemangioma. Close attention on follow-up examination.4.Large rectal stool burden, concerning for fecal impaction. Signed: Chauncey Tavares MDReport Verified Date/Time: 12/24/2018 12:11:19 Reading Location: [facility] Reading Room [address] [place] [address] CT, CHEST, WITH IV [id number] 12:11:00FINAL REPORT EXAM: CT Chest, Abdomen and [...] MDReport Verified Date/Time: 12/24/2018 12:11:19 Reading Location: [facility] Reading Room [address] [place] [address] RAD, CHEST, 2 [id number] 11:57:00Reason for Exam:->Z85.528FINAL REPORT EXAM: PA and [...] when compared to 10/25/2018. Signed: Preeti Chong MDReport Verified Date/Time: 12/23/2018 11:57:24 Reading Location: [facility] Reading Room [address] [place] [address] [id number] 11:35:00 Test Item Value Reference Range Interpretation Comments POC-CREATININE 0.8 mg/dL 0.6-1.3 TESTED AT [facility] 7200 ([facility]) (test GAVIN D G A code = 1859) [facility] 7703 0 POC-EGFR 121 mL/min/1.73M2 ([facility]) (test code = 1860) TISSUE [id number] 09:12:00Surgical Pathology Report Case: [id number] Authorizing Provider: Abhijeet Mahmood MD Collected: 10/19/2018 1556 Ordering Location: [facility] PERIOPERATIVE Received: 10/19/2018 1747 SERVICES Pathologist: Cm Modi MD Specimens: A) [...] SYNOPTIC REPORT) Signing Pathologist Direct Phone Line: [phone] signed by Cm Modi MD on 11/01/2018 [...] Pathologic Findings in Nonneoplastic Kidney: Insufficient tissue 86856, 57189Y4, 05934, 53841, 91704e3Xrddg massA. Hilar lymph node; B. Retroperitoneal lymph [...] the adipose and kidney parenchyma present grossly. Senior Product Engineer sections of tumorand surrounding tissue are submitted in D1 to D8. ANA CRISTINA/Eunice, RIGHT, BASE OF TUMOR: - FIBROMUSCULAR AND ADIPOSE TISSUE - NO OVERT TUMOR IS SEENThese results were reported to Dr. Mahmood in OR-[address] Modi at 6 p.m., on October 19, 2018. Performed.The interpretation of this case included the use of immunohistochemistry or special stains.On D7: [place]-8, Cam5.2, CK7, Ki-67, AMCARImmunohistochemistry technical testing was performed at [facility], Pathology Laboratory where it was developed [...] complexity clinical laboratory testing.SPUTUM CULTURE + GRAM [id number] 09:23:00 Test Item Value Reference Range Interpretation Comments CULTURE (BEAKER) 4+ Normal respiratory (test code = 1095) david present GRAM STAIN RESULT <1+ WBCs (BEAKER) (test code = 1123) GRAM STAIN RESULT 0-5 epithelial cells (BEAKER) (test code = 88091) GRAM STAIN RESULT 1+ gram positive cocci (BEAKER) (test code = in chains, pairs and 75007) clusters POCT-GLUCOSE [id number] 16:57:00 Test Item Value Reference Range Interpretation Comments POC-GLUCOSE METER 246 mg/dL 70-110 H TESTED AT [facility] 6720 (BEAKER) (test code = ELIAS [place] 1538) [address] POCT-GLUCOSE [id number] 12:56:00 Test Item Value Reference Range Interpretation Comments POC-GLUCOSE METER 238 mg/dL 70-110 H TESTED AT [facility] 6720 (BEAKER) (test code = [facility] [place] 1538) [address] CBC W/PLT COUNT & AUTO [id number] 08:28:00 Test Item Value Reference Range Interpretation [...] 0-1 PERCENT (BEAKER) (test code = 2801) [id number] 08:26:00 Test Item Value Reference Range Interpretation Comments PHOSPHORUS (BEAKER) (test code = 3.4 mg/dL 2.3-4.7 604) [id number] 08:26:00 Test Item Value Reference Range Interpretation Comments MAGNESIUM (BEAKER) (test code = 1.9 mg/dL 1.6-2.6 627) BASIC METABOLIC [id number] 08:26:00 Test Item Value Reference Range Interpretation [...] NOT APPLICABLE FOR DIALYSIS PATIEN TS. POCT-GLUCOSE [id number] 21:52:00 Test Item Value Reference Range Interpretation Comments POC-GLUCOSE METER 130 mg/dL 70-110 H TESTED AT [facility] 67 ([facility]) (test code = ELIAS [place] 1538) [address] POCT-GLUCOSE [id number] 16:41:00 Test Item Value Reference Range Interpretation Comments POC-GLUCOSE METER 242 mg/dL 70-110 H TESTED AT [place] [address] ([facility]) (test code = ELIAS [place] 1538) [address] RAD, CHEST, 1 VIEW, NON [id number] 15:52:00Reason for exam:->eval for pulmonary edemaShould this [...] MDReport Verified Date/Time: 10/25/2018 15:52:14 Reading Location: [address] Consult Reading Room POCT-GLUCOSE [id number] 11:57:00 Test Item Value Reference Range Interpretation Comments POC-GLUCOSE METER 202 mg/dL 70-110 H TESTED AT [place] [address] ([facility]) (test code = ELIAS [place] 1538) [address] POCT-GLUCOSE [id number] 08:32:00 Test Item Value Reference Range Interpretation Comments POC-GLUCOSE METER 179 mg/dL 70-110 H TESTED AT [facility] 67 ([facility]) (test code = ELIAS [place] 1538) [address] [id number] 07:11:00 Test Item Value Reference Range Interpretation Comments PHOSPHORUS ([facility]) (test code = 3.3 mg/dL 2.3-4.7 604) [id number] 07:11:00 Test Item Value Reference Range Interpretation Comments MAGNESIUM (BEAKER) (test code = 1.7 mg/dL 1.6-2.6 627) BASIC METABOLIC [id number] 07:11:00 Test Item Value Reference Range Interpretation [...] PATIEN TS. CBC W/PLT COUNT & AUTO [id number] 06:57:00 Test Item Value Reference Range Interpretation [...] code = 2801) SPUTUM CULTURE + GRAM [id number] 01:06:00 Test Item Value Reference Range Interpretation Comments CULTURE (BEAKER) Oropharyngeal (test code = 1095) contamination, specimen rejected. Recollect requested. GRAM STAIN RESULT <1+ WBCs (BEAKER) (test code = 1123) GRAM STAIN RESULT >25 epithelial cells (BEAKER) (test code = 00697) GRAM STAIN RESULT <1+ gram negative rods (BEAKER) (test code = 87416) GRAM STAIN RESULT 1+ gram positive rods (BEAKER) (test code = 365738) GRAM STAIN RESULT 4+ gram positive cocci in (BEAKER) (test code chains, pairs and = 522131) clusters POCT-GLUCOSE [id number] 18:16:00 Test Item Value Reference Range Interpretation Comments POC-GLUCOSE METER 173 mg/dL 70-110 H TESTED AT [facility] 6720 ([facility]) (test code = ELIAS Melgoza [facility] 1538) [address] RAD, CHEST, 1 VIEW, NON [id number] 15:21:00Reason for exam:->SOBShould this be performed at the bedside?->YesFINAL REPORT AP chest HISTORY: Shortness of breath COMPARISON: 10/23/2017 IMPRESSION:Intact skeleton. Heart size normal. Bibasilar atelectasis. No pneumothorax. Signed: Jeremy Dougherty MDReport Verified Date/Time: 10/24/2018 15:21:04 Reading Location: [address] Transitional Reading Room POCT-GLUCOSE [id number] 12:58:00 Test Item Value Reference Range Interpretation Comments POC-GLUCOSE METER 315 mg/dL 70-110 H TESTED AT [facility] 6720 ([facility]) (test code = ELIAS Melgoza [facility] 1538) [address] [id number] 07:04:00 Test Item Value Reference Range Interpretation Comments PHOSPHORUS (BEAKER) (test code = 4.1 mg/dL 2.3-4.7 604) [id number] 07:04:00 Test Item Value Reference Range Interpretation Comments MAGNESIUM (BEAKER) (test code = 1.7 mg/dL 1.6-2.6 627) BASIC METABOLIC [id number] 07:04:00 Test Item Value Reference Range Interpretation [...] PATIEN TS. CBC W/PLT COUNT & AUTO [id number] 06:56:00 Test Item Value Reference Range Interpretation [...] PERCENT (BEAKER) (test code = 2801) POCT-GLUCOSE [id number] 21:33:00 Test Item Value Reference Range Interpretation Comments POC-GLUCOSE METER 195 mg/dL 70-110 H TESTED AT [facility] 6720 ([facility]) (test code = [facility] 1538) [address] RAD, ABDOMEN/KUB, 1 VIEW [id number] 20:09:00Reason for exam:->abdominal distentionShould this be performed [...] compatible with an ileus. Signed: Angel Palumbo MDReport Verified Date/Time: 10/23/2018 20:09:42 Reading Location: [address] Body ReadingRoom POCT-GLUCOSE [id number] 16:49:00 Test Item Value Reference Range Interpretation Comments POC-GLUCOSE METER 311 mg/dL 70-110 H TESTED AT [facility] 6720 ([facility]) (test code = [facility] 1538) [address] POCT-GLUCOSE [id number] 13:44:00 Test Item Value Reference Range Interpretation Comments POC-GLUCOSE METER 239 mg/dL 70-110 H TESTED AT [facility] 6720 ([facility]) (test code = [facility] 1538) [address] RAD, CHEST, 1 VIEW, NON [id number] 08:59:00Reason for exam:->SOBShould this be performed at [...] contours. Additional findings: None. Signed: Blanche Dang MDReport Verified Date/Time: 10/23/2018 08:59:13 Reading Location: [address] Neuro Reading Room Electronicallysigned by: BLANCHE DANG MD on 10/23/2018 08:59 AMPOCT-GLUCOSE [id number] 08:09:00 Test Item Value Reference Range Interpretation Comments POC-GLUCOSE METER 185 mg/dL 70-110 H TESTED AT [facility] 6720 (BEAKER) (test code = ELIAS Melgoza [facility] 1538) [address] [id number] 06:28:00 Test Item Value Reference Range Interpretation Comments PHOSPHORUS (BEAKER) (test code = 3.1 mg/dL 2.3-4.7 604) [id number] 06:28:00 Test Item Value Reference Range Interpretation Comments MAGNESIUM (BEAKER) (test code = 1.7 mg/dL 1.6-2.6 627) BASIC METABOLIC [id number] 06:28:00 Test Item Value Reference Range Interpretation [...] APPLICABLE FOR DIALYSIS PATIEN TS. HEMOGLOBIN AND [id number] 05:24:00 Test Item Value Reference Range Interpretation Comments HEMOGLOBIN (BEAKER) (test code = 9.3 GM/DL 13.7-17.5 L 410) HEMATOCRIT (BEAKER) (test code = 29.8 % 40.1-51.0 L 411) CREATININE, BODY [id number] 01:47:00 Test Item Value Reference Range Interpretation Comments CREATININE FLUID (BEAKER) (test 0.91 mg/dL code = 677) Reference Range: No Normals Assay performance has not been validated for this type of specimen.Please place ostomy bag over midline wound to collect fluid to send for CreatininePOCT-GLUCOSE [id number] 21:35:00 Test Item Value Reference Range Interpretation Comments POC-GLUCOSE METER 213 mg/dL 70-110 H TESTED AT [facility] 6720 ([facility]) (test code = ELIAS [place] 1538) [address] POCT-GLUCOSE [id number] 19:01:00 Test Item Value Reference Range Interpretation Comments POC-GLUCOSE METER 202 mg/dL 70-110 H TESTED AT [facility] 6720 ([facility]) (test code = E[place] 1538) [address] [id number] 15:55:00 Test Item Value Reference Range Interpretation Comments PARTIAL THROMBOPLASTIN TIME 38.0 seconds 22.5-36.0 H (AKER) (test code = 760) PROTHROMBIN [id number] 15:54:00 Test Item Value Reference Range Interpretation Comments [facility] (test code = 15.4 seconds 11.7-14.7 H 759) INR ([facility]) (test code = 370) 1.2 <=5.9 RECOMMENDED COUMADIN/WARFARIN INR THERAPY RANGESSTANDARD DOSE: 2.0 - 3.0 Includes: PROPHYLAXIS forvenous thrombosis, systemic embolization; TREATMENT for venous thrombosis and/or pulmonary embolus.HIGH RISK: Target INR is 2.5-3.5 for patients with mechanical heart valves.[id number] 15:44:00 Test Item Value Reference Range Interpretation Comments MAGNESIUM (BEAKER) 2.0 mg/dL 1.6-2.6 Specimen slightly (test code = 627) hemolyzed BASIC METABOLIC [id number] 15:44:00 Test Item Value Reference Range Interpretation [...] APPLICABLE FOR DIALYSIS PATIEN TS. HEMOGLOBIN AND [id number] 15:31:00 Test Item Value Reference Range Interpretation Comments HEMOGLOBIN (BEAKER) (test code = 9.5 GM/DL 13.7-17.5 L 410) HEMATOCRIT (BEAKER) (test code = 29.8 % 40.1-51.0 L 411) POCT-GLUCOSE [id number] 13:55:00 Test Item Value Reference Range Interpretation Comments POC-GLUCOSE METER 252 mg/dL 70-110 H TESTED AT [facility] 6720 (BEAKER) (test code = ELIAS [place] 1538) [address] HEPATIC FUNCTION [id number] 11:12:00 Test Item Value Reference Range Interpretation [...] 6-55 347) RAD, CHEST, 1 VIEW, NON [id number] 09:35:00Reason for exam:->SOBShould this be performed at the bedside?->YesFINAL REPORT Portable chest. CLINICAL HISTORY: SOB. COMPARISON STUDY: Chest x-ray from yesterday. FINDINGS: The cardiac silhouette is enlarged. The pulmonary parenchyma demonstrates increased interstitial and atelectatic changes, similar to previous. No pneumothorax is seen. Degenerative changes are noted. IMPRESSION: No significant change. Signed: Eleno Hutton MDReport Verified Date/Time: 10/22/2018 09:35:30 Reading Location: [facility] Radiology Reading Room POCT-GLUCOSE [id number] 07:52:00 Test Item Value Reference Range Interpretation Comments POC-GLUCOSE METER 161 mg/dL 70-110 H TESTED AT [facility] 6720 (BEAKER) (test code = ELIAS Melgoza [facility] 1538) [address] [id number] 05:48:00 Test Item Value Reference Range Interpretation Comments PHOSPHORUS (BEAKER) (test code = 2.6 mg/dL 2.3-4.7 604) [id number] 05:48:00 Test Item Value Reference Range Interpretation Comments MAGNESIUM (BEAKER) (test code = 1.8 mg/dL 1.6-2.6 627) BASIC METABOLIC [id number] 05:48:00 Test Item Value Reference Range Interpretation [...] APPLICABLE FOR DIALYSIS PATIEN TS. HEMOGLOBIN AND [id number] 05:04:00 Test Item Value Reference Range Interpretation Comments HEMOGLOBIN (BEAKER) (test code = 8.7 GM/DL 13.7-17.5 L 410) HEMATOCRIT (BEAKER) (test code = 27.9 % 40.1-51.0 L 411) POCT-GLUCOSE [id number] 21:42:00 Test Item Value Reference Range Interpretation Comments POC-GLUCOSE METER 176 mg/dL 70-110 H TESTED AT [facility] 6720 (BEAKER) (test code = ELIAS Melgoza [facility] 1538) [address] RAD, CHEST, 2 [id number] 20:45:00Reason for exam:->Pre-opShould this be performed at [...] MDReport Verified Date/Time: 10/21/2018 20:45:31 Reading Location: [address] Reading Room POCT-GLUCOSE [id number] 18:43:00 Test Item Value Reference Range Interpretation Comments POC-GLUCOSE METER 237 mg/dL 70-110 H TESTED AT [place] [address] [facility] (test code = [facility] 1538) [address] [id number] 16:57:00 Test Item Value Reference Range Interpretation Comments PARTIAL THROMBOPLASTIN TIME 37.9 seconds 22.5-36.0 H (BEAKER) (test code = 760) Draw at 4pm pleaseDraw at 4pm pleasePROTHROMBIN TIME/[id number] 16:55:00 Test Item Value Reference Range Interpretation [...] 4pm pleaseDraw at 4pm please HEMOGLOBIN AND [id number] 16:43:00 Test Item Value Reference Range Interpretation Comments HEMOGLOBIN (BEAKER) (test code = 9.4 GM/DL 13.7-17.5 L 410) HEMATOCRIT (BEAKER) (test code = 30.8 % 40.1-51.0 L 411) Draw at 4pm pleasePOCT-GLUCOSE [id number] 14:06:00 Test Item Value Reference Range Interpretation Comments POC-GLUCOSE METER 193 mg/dL 70-110 H TESTED AT [facility] 6720 (BEAKER) (test code = [facility] 1538) [address] [id number] 10:38:00 Test Item Value Reference Range Interpretation Comments PHOSPHORUS (BEAKER) (test code = 3.2 mg/dL 2.3-4.7 604) [id number] 10:38:00 Test Item Value Reference Range Interpretation Comments MAGNESIUM (BEAKER) (test code = 2.0 mg/dL 1.6-2.6 627) BASIC METABOLIC [id number] 10:38:00 Test Item Value Reference Range Interpretation [...] APPLICABLE FOR DIALYSIS PATIEN TS. HEMOGLOBIN AND [id number] 08:59:00 Test Item Value Reference Range Interpretation Comments HEMOGLOBIN (BEAKER) (test code = 9.2 GM/DL 13.7-17.5 L 410) HEMATOCRIT (BEAKER) (test code = 29.0 % 40.1-51.0 L 411) POCT-GLUCOSE [id number] 07:58:00 Test Item Value Reference Range Interpretation Comments POC-GLUCOSE METER 170 mg/dL 70-110 H TESTED AT [facility] 6720 (BEAKER) (test code = ELIAS Melgoza [place] 1538) [address] POCT-GLUCOSE [id number] 00:50:00 Test Item Value Reference Range Interpretation Comments POC-GLUCOSE METER 214 mg/dL 70-110 H TESTED AT [facility] 6720 [facility] (test code = ELIAS Melgoza [place] 1538) [address] POCT-GLUCOSE [id number] 17:28:00 Test Item Value Reference Range Interpretation Comments POC-GLUCOSE METER 260 mg/dL 70-110 H TESTED AT [facility] 6720 (BEAKER) (test code = ELIAS Melgoza [place] 1538) [address] [id number] 16:02:00 Test Item Value Reference Range Interpretation Comments MAGNESIUM (BEAKER) (test code = 1.5 mg/dL 1.6-2.6 L 627) POCT-GLUCOSE [id number] 14:49:00 Test Item Value Reference Range Interpretation Comments POC-GLUCOSE METER 248 mg/dL 70-110 H TESTED AT [facility] 6720 (BEAKER) (test code = [place]ona [facility] 1538) [address] BASIC METABOLIC [id number] 07:27:00 Test Item Value Reference Range Interpretation [...] APPLICABLE FOR DIALYSIS PATIEN TS. HEMOGLOBIN AND [id number] 06:39:00 Test Item Value Reference Range Interpretation Comments HEMOGLOBIN (BEAKER) (test code = 9.9 GM/DL 13.7-17.5 L 410) HEMATOCRIT (BEAKER) (test code = 31.7 % 40.1-51.0 L 411) POCT-GLUCOSE [id number] 06:29:00 Test Item Value Reference Range Interpretation Comments POC-GLUCOSE METER 205 mg/dL 70-110 H TESTED AT [place] [address] (BEAKER) (test code = [facility] 1538) [address] POCT-GLUCOSE [id number] 22:44:00 Test Item Value Reference Range Interpretation Comments POC-GLUCOSE METER 234 mg/dL 70-110 H TESTED AT [place] [address] (BEAKER) (test code = [facility] 1538) [address] BASIC METABOLIC [id number] 20:57:00 Test Item Value Reference Range Interpretation [...] APPLICABLE FOR DIALYSIS PATIEN TS. HEMOGLOBIN AND [id number] 20:39:00 Test Item Value Reference Range Interpretation Comments HEMOGLOBIN (BEAKER) (test code = 10.2 GM/DL 13.7-17.5 L 410) HEMATOCRIT (BEAKER) (test code = 31.8 % 40.1-51.0 L 411) POCT-GLUCOSE [id number] 20:19:00 Test Item Value Reference Range Interpretation Comments POC-GLUCOSE METER 221 mg/dL 70-110 H TESTED AT [place] [id number] (BEAKER) (test code = [facility] 1538) [address] CALCIUM, [id number] 18:02:00 Test Item Value Reference Range Interpretation Comments CALCIUM IONIZED (BEAKER) (test 1.01 mmol/L 1.12-1.27 L code = 698) PH, BLOOD (BEAKER) (test code = 7.38 1810) BLOOD GAS, [id number] 18:02:00 Test Item Value Reference Range Interpretation [...] 37.0 C (test code = 1818) POTASSIUM-STAT [id number] 18:02:00 Test Item Value Reference Range Interpretation Comments POTASSIUM (BEAKER) (test code = 3.2 meq/L 3.6-5.5 L 379) GLUCOSE-STAT [id number] 18:02:00 Test Item Value Reference Range Interpretation Comments GLUCOSE RANDOM (BEAKER) (test code 164 mg/dL 70-110 H = 652) HGB/HCT (H&H) - STAT [id number] 18:02:00 Test Item Value Reference Range Interpretation Comments HEMOGLOBIN (BEAKER) (test code = 9.6 g/dL 13.0-16.8 L 410) HEMATOCRIT (BEAKER) (test code = 28.0 % 40.0-50.0 L 411) SODIUM NA-STAT [id number] 18:01:00 Test Item Value Reference Range Interpretation Comments SODIUM (BEAKER) (test code = 381) 136 meq/L 135-148 CALCIUM, [id number] 15:06:00 Test Item Value Reference Range Interpretation Comments CALCIUM IONIZED (BEAKER) (test 1.08 mmol/L 1.12-1.27 L code = 698) PH, BLOOD (BEAKER) (test code = 7.46 1810) BLOOD GAS, [id number] 15:06:00 Test Item Value Reference Range Interpretation [...] (test 37.0 C code = 1818) GLUCOSE-STAT [id number] 15:06:00 Test Item Value Reference Range Interpretation Comments GLUCOSE RANDOM (BEAKER) (test code 117 mg/dL 70-110 H = 652) HGB/HCT (H&H) - STAT [id number] 15:06:00 Test Item Value Reference Range Interpretation Comments HEMOGLOBIN (BEAKER) (test code = 10.9 g/dL 13.0-16.8 L 410) HEMATOCRIT (BEAKER) (test code = 32.0 % 40.0-50.0 L 411) SODIUM NA-STAT [id number] 15:05:00 Test Item Value Reference Range Interpretation Comments SODIUM (BEAKER) (test code = 381) 139 meq/L 135-148 POTASSIUM-STAT [id number] 15:05:00 Test Item Value Reference Range Interpretation Comments POTASSIUM (BEAKER) (test code = 3.6 meq/L 3.6-5.5 379) [id number] 12:05:00 Test Item Value Reference Range Interpretation Comments SODIUM (BEAKER) (test 139 meq/L 136-145 code = 381) POTASSIUM (BEAKER) 4.3 meq/L 3.5-5.1 Specimen slightly (test code = 379) hemolyzed CHLORIDE (BEAKER) 104 meq/L 98-107 (test code = 382) CO2 (BEAKER) (test 25 meq/L 22-29 code = 355) BUN AND [id number] 12:05:00 Test Item Value Reference Range Interpretation [...] S NOT APPLICABLE FOR DIALYSIS PATIEN TS. [id number] 11:46:00 Test Item Value Reference Range Interpretation Comments HEMOGLOBIN (BEAKER) (test code = 11.5 GM/DL 13.7-17.5 L 410) POCT-GLUCOSE [id number] 11:19:00 Test Item Value Reference Range Interpretation Comments POC-GLUCOSE METER 133 mg/dL 70-110 H TESTED AT [place] [address] ([facility]) (test code = [facility] 1538) [address] POCT-GLUCOSE [id number] 14:25:00 Test Item Value Reference Range Interpretation Comments POC-GLUCOSE METER 366 mg/dL 70-110 H Baby teste d Mother ID ([facility]) (test code = used/T ESTED AT [place] [address]) 6720 [facility] [address] POCT-GLUCOSE [id number] 07:42:00 Test Item Value Reference Range Interpretation Comments POC-GLUCOSE METER 237 mg/dL 70-110 H TESTED AT [place] [address] ([facility]) (test code = [facility] 1538) [address] BASIC METABOLIC [id number] 05:07:00 Test Item Value Reference Range Interpretation [...] 753) MEAN CORPUSCULAR HEMOGLOBIN 28.3 pg 25.7-32.2 (BEAKER) (test code = 751) MEAN CORPUSCULAR HEMOGLOBIN CONC 30.7 GM/DL 32.3-36.5 L (BEAKER) (test code = 752) RED CELL DISTRIBUTION WIDTH 14.4 % 11.6-14.4 (BEAKER) (test code = 412) PLATELET COUNT (BEAKER) (test 347 K/CU MM 150-450 code = 756) MEAN PLATELET VOLUME (BEAKER) 10.7 fL 9.4-12.4 (test code = 754) NUCLEATED RED BLOOD CELLS 0 /100 WBC 0-0 (BEAKER) (test code = 413) POCT-GLUCOSE [id number] 22:48:00 Test Item Value Reference Range Interpretation Comments POC-GLUCOSE METER 166 mg/dL 70-110 H TESTED AT [place] [address] ([facility]) (test code = ELIAS [place] 1538) [address] [id number] 21:21:00 Test Item Value Reference Range Interpretation Comments ACTIVATED CLOTTING TIME 268 sec TEST ED AT [place] [address] ([facility]) (test code = ELIAS [place] 441) [address] POCT-GLUCOSE [id number] 17:32:00 Test Item Value Reference Range Interpretation Comments POC-GLUCOSE METER 164 mg/dL 70-110 H TESTED AT [place] [address] ([facility]) (test code = ELIAS Melgoza [facility] 1538) [address] POCT-GLUCOSE [id number] 12:02:00 Test Item Value Reference Range Interpretation Comments POC-GLUCOSE METER 220 mg/dL 70-110 H TESTED AT [place] [address] ([facility]) (test code = ELIAS Melgoza [facility] 1538) [address] POCT-GLUCOSE [id number] 08:11:00 Test Item Value Reference Range Interpretation Comments POC-GLUCOSE METER 228 mg/dL 70-110 H TESTED AT [place] [address] ([facility]) (test code = [place]ona [facility] 1538) [address] LACTATE DEHYDROGENASE (LDH)2018-07-15 06:51:00 Test Item Value Reference Range Interpretation Comments LACTATE DEHYDROGENASE ([facility]) (test 262 U/L 125-220 H code = 635) POCT-GLUCOSE [id number] 06:06:00 Test Item Value Reference Range Interpretation Comments POC-GLUCOSE METER 186 mg/dL 70-110 H TESTED AT [place] [address] ([facility]) (test code = [place]ona [facility] 1538) [address] BLOOD [id number] 05:01:00 Test Item Value Reference Range Interpretation Comments CULTURE (BEAKER) (test No growth in 5 days code = 1095) BLOOD [id number] 05:01:00 Test Item Value Reference Range Interpretation Comments CULTURE (BEAKER) (test No growth in 5 days code = 1095) POCT-GLUCOSE [id number] 21:38:00 Test Item Value Reference Range Interpretation Comments POC-GLUCOSE METER 267 mg/dL 70-110 H TESTED AT [place] [address] ([facility]) (test code = [place]ona [facility] 1538) [address] POCT-GLUCOSE [id number] 17:28:00 Test Item Value Reference Range Interpretation Comments POC-GLUCOSE METER 405 mg/dL 70-110 HH Notified Rhona Bennett MD/TESTED ([facility]) (test code = AT [address] 1538) [facility] 7703 0 PET, CARDIAC PERFUSION MULTIPLE STUDIES, REST AND [id number] 12:29:00 Reason for exam:->preoperative risk stratficationFINAL REPORT PROCEDURE: Rest/Stress MYOCARDIAL PERFUSION PET with regadenos on\\XA9\\ CPT CODE: 27322 INDICATION: Preoperative risk stratification for renal mass [...] Heart rate was 90 beats/min at rest nit269 beats/min (66% of MPHR) at tracer injection. [...] tracer distribution is normal. 6. No previous [facility] study for comparison. Signed: Toya Spangler Verified Date/Time: 07/14/2018 12:29:37 Reading Location: [address] POCT-GLUCOSE [id number] 11:42:00 Test Item Value Reference Range Interpretation Comments POC-GLUCOSE METER 166 mg/dL 70-110 H TESTED AT [facility] 6720 (BEAKER) (test code = ELI[place] 1538) [address] CBC W/PLT COUNT & AUTO [id number] 08:21:00 Test Item Value Reference Range Interpretation Comments WHITE BLOOD CELL COUNT (BEAKER) 8.8 K/ L 3.5-10.5 (test code = 775) RED BLOOD CELL COUNT (BEAKER) 3.05 M/ L 4.63-6.08 L (test code = 761) HEMOGLOBIN (BEAKER) (test code = 8.6 GM/DL 13.7-17.5 L [...] 965) ARTIFACT (CELLAVISION)(BEAKER) Present (test code = 9502) PLATELET CONCENTRATION Adequate (CELLAVISION)(BEAKER) (test code = 0168) Received comment: User comments: Slide comments:POCT-GLUCOSE [id number] 21:26:00 Test Item Value Reference Range Interpretation Comments POC-GLUCOSE METER 279 mg/dL 70-110 H TESTED AT [facility] 67 (ANJAIL) (test code = ELIAS [place] 1538) [address] MR, ABDOMEN, [id number] 19:30:00FINAL REPORT MRI of the abdomen. CLINICAL [...] Hutton Verified Date/Time: 07/13/2018 19:30:45 Reading Location: [address] Consult Reading Room Electronically signed by: ELENO HUTTON M.D. on 07/03 07:30 PMPOCT-GLUCOSE [id number] 16:36:00 Test Item Value Reference Range Interpretation Comments POC-GLUCOSE METER 260 mg/dL 70-110 H TESTED AT [place] [address] ([facility]) (test code = ELIAS Melgoza [facility] 1538) [address] POCT-GLUCOSE [id number] 12:41:00 Test Item Value Reference Range Interpretation Comments POC-GLUCOSE METER 284 mg/dL 70-110 H TESTED AT [place] [address] ([facility]) (test code = ELIAS Melgoza [facility] 1538) [address] POCT-GLUCOSE [id number] 08:34:00 Test Item Value Reference Range Interpretation Comments POC-GLUCOSE METER 196 mg/dL 70-110 H TESTED AT [place] [address] ([facility]) (test code = ELIAS Melgoza [facility] 1538) [address] POCT-GLUCOSE [id number] 21:17:00 Test Item Value Reference Range Interpretation Comments POC-GLUCOSE METER 323 mg/dL 70-110 H Patient on insulin ([facility]) (test code = Drip/T ESTED AT [place] [address]) 67[address] [facility] [address] POCT-GLUCOSE [id number] 17:51:00 Test Item Value Reference Range Interpretation Comments POC-GLUCOSE METER 256 mg/dL 70-110 H TESTED AT [place] [address] ([facility]) (test code = [place] Rhona [place] [address]) [address] CT, [id number] 16:00:00FINAL REPORT CT scan of the abdomen [...] Hutton Verified Date/Time: 07/12/2018 16:00:46 Reading Location: [facility] C013X Ortho Consult Reading Room U/S, [id number] 14:52:00Reason for exam:->re-evaluate prostatic abscesShould this be [...] Pierson Verified Date/Time: 07/12/2018 14:52:29 Reading Location: [facility] P006J Ultrasound Reading Room CT, CHEST, WITH [id number] 14:22:00Addendum BeginsREPORT STATUS:A There is a hyperenhancing focus in segment II which measures 1 cm on axial image 38. This was discussed with Dr. Bueno on 07/12/2018 at 2:21 PM. Sign ed: Diomedes Stewart Verified Date/Time: 07/12/2018 14:22:13 Reading Location: [facility] C013Y CT Body Reading RoomAddendum EndsFINAL REPORT [...] MDReport Verified Date/Time: 07/11/2018 09:17:12 Reading Location: [facility] C013Y CT Body Reading Room -GLUCOSE [id number] 14:01:00 Test Item Value Reference Range Interpretation Comments POC-GLUCOSE METER 246 mg/dL 70-110 H TESTED AT [place] [address] ([facility]) (test code = ELIAS Melgoza [facility] 1538) [address] POCT-GLUCOSE [id number] 20:43:00 Test Item Value Reference Range Interpretation Comments POC-GLUCOSE METER 277 mg/dL 70-110 H TESTED AT [place] [address] ([facility]) (test code = ELIAS Melgoza [facility] 1538) [address] POCT-GLUCOSE [id number] 17:05:00 Test Item Value Reference Range Interpretation Comments POC-GLUCOSE METER 283 mg/dL 70-110 H TESTED AT [place] [address] ([facility]) (test code = ELIAS Melgoza [facility] 1538) [address] POCT-GLUCOSE [id number] 11:30:00 Test Item Value Reference Range Interpretation Comments POC-GLUCOSE METER 253 mg/dL 70-110 H TESTED AT [place] [address] ([facility]) (test code = ELIAS Melgoza [facility] 1538) [address] POCT-GLUCOSE [id number] 07:49:00 Test Item Value Reference Range Interpretation Comments POC-GLUCOSE METER 209 mg/dL 70-110 H TESTED AT [place] [address] ([facility]) (test code = ELIAS Melgoza [facility] 1538) [address] POCT-GLUCOSE [id number] 21:13:00 Test Item Value Reference Range Interpretation Comments POC-GLUCOSE METER 243 mg/dL 70-110 H TESTED AT [place] [address] ([facility]) (test code = ELIAS Melgoza [facility] 1538) [address] URINE [id number] 15:31:00 Test Item Value Reference Range Interpretation Comments CULTURE ([facility]) (test code = 1095) No growth POCT-GLUCOSE [id number] 12:17:00 Test Item Value Reference Range Interpretation Comments POC-GLUCOSE METER 283 mg/dL 70-110 H TESTED AT [place] [address] ([facility]) (test code = ELIAS Melgoza [facility] 1538) [address] BASIC METABOLIC [id number] 08:34:00 Test Item Value Reference Range Interpretation Comments SODIUM ([facility]) 136 meq/L 136-145 (test code = 381) [...] RED BLOOD CELLS 0 /100 WBC 0-0 ([facility]) (test code = 413) POCT-GLUCOSE [id number] 08:04:00 Test Item Value Reference Range Interpretation Comments POC-GLUCOSE METER 202 mg/dL 70-110 H TESTED AT [place] [address] ([facility]) (test code = ELIAS Melgoza [facility] 1538) [address] POCT-GLUCOSE [id number] 21:17:00 Test Item Value Reference Range Interpretation Comments POC-GLUCOSE METER 265 mg/dL 70-110 H TESTED AT [place] [address] ([facility]) (test code = ELIAS Melgoza [facility] 1538) [address] U/S, [id number] 18:00:00Please evaluate via TRUS for prostatic abscess/drainable [...] Dodge Verified Date/Time: 07/09/2018 18:00:47 Reading Location: [address] Ultrasound Reading Room POCT-GLUCOSE [id number] 16:49:00 Test Item Value Reference Range Interpretation Comments POC-GLUCOSE METER 170 mg/dL 70-110 H TESTED AT [place] [address] ([facility]) (test code = ELIAS Melgoza [facility] 1538) [address] POCT-GLUCOSE [id number] 11:38:00 Test Item Value Reference Range Interpretation Comments POC-GLUCOSE METER 246 mg/dL 70-110 H TESTED AT [place] [address] ([facility]) (test code = ELIAS Melgoza [facility] 1538) 6[address] PROTHROMBIN [id number] 11:07:00 Test Item Value Reference Range Interpretation Comments PROTIME ([facility]) (test code = 15.7 seconds 11.7-14.7 H 759) INR (BEAKER) (test code = 370) 1.3 <=5.9 RECOMMENDED COUMADIN/WARFARIN INR THERAPY RANGESSTANDARD DOSE: 2.0 - 3.0 Includes: PROPHYLAXIS forvenous thrombosis, systemic embolization; TREATMENT for venous thrombosis and/or pulmonary embolus.HIGH RISK: Target INR is 2.5-3.5 for patients with mechanical heart valves.HEMOGLOBIN [id number] 08:45:00 Test Item Value Reference Range Interpretation Comments HEMOGLOBIN A1C (BEAKER) (test code = 5.5 % 4.3-6.1 368) POCT-GLUCOSE [id number] 08:18:00 Test Item Value Reference Range Interpretation Comments POC-GLUCOSE METER 210 mg/dL 70-110 H TESTED AT [facility] 6720 (BEAKER) (test code = ELIAS [place] 1538) [address] URINALYSIS W/ [id number] 06:28:00 Test Item Value Reference Range Interpretation [...] 516) SOURCE(BEAKER) (test code = Urine, Voided 5943) HEPATIC FUNCTION [id number] 03:40:00 Test Item Value Reference Range Interpretation [...] = 49 U/L 6-55 347) BASIC METABOLIC [id number] 03:40:00 Test Item Value Reference Range Interpretation [...] PATIEN TS. CBC W/PLT COUNT & AUTO [id number] 03:20:00 Test Item Value Reference Range Interpretation [...] PERCENT (BEAKER) (test code = 2801) POCT-GLUCOSE [id number] 01:26:00 Test Item Value Reference Range Interpretation Comments POC-GLUCOSE METER 202 mg/dL 70-110 H TESTED AT [facility] 6720 (ANJALI) (test code = [place]IAS [place] 1531) [address]
--- NOTE | 2021-04-12 14:54 | RAD REPORT ---
EXAM DESCRIPTION: RAD - Knee Left 3 View - 04/12/2021 2:36 pm CLINICAL HISTORY: Pain;Swelling COMPARISON: Knee Left 2 View dated 03/11/2018 FINDINGS: No fracture, dislocation or periosteal reaction.Small joint effusion is present. Advanced tricompartment degenerative change present. This is more notable in the medial compartment. Bones are osteopenic. Prominent bony hypertrophy along the superior margin of patella again noted. Arterial tr ee calcifications are present. No large mass or hematoma identifiable in the soft tissues. No foreign body. IMPRESSION: Osteoporosis and advanced knee joint degenerative change similar to 2018 study. No acute bone or joint finding confirmed.
--- NOTE | 2021-04-12 15:13 | RAD REPORT ---
EXAM DESCRIPTION: US - Extremity Venous Uni Ltd - 04/12/2021 2:22 pm CLINICAL HISTORY: Pain;Swelling COMPARISON: None. DVT 03/19/2021 TECHNIQUE: Real-time sonographic evaluation of the left lower extremity deep venous system was perfo rmed. FINDINGS: Echogenic material is present within the lumen of the left common femoral, superficial fem oral and popliteal veins. These vessels show little or no compression. More distally no DVT is seen i n the left lower extremity. The March 19 study showed extensive DVT in the same location of the left lower extremity. No propaga tion or measurable resolution of thrombus identifiable on today's study. IMPRESSION: Persistent thrombus in the left lower extremity from groin to knee.
--- NOTE | 2021-04-12 15:31 | ER ---
Nurse's Notes [facility] Name: Froy Hatfield Age: 60 yrs Sex: Male : 1960 Arrival Date: 04/12/2021 Time: 11:18 Bed Waiting Private MD: Diagnosis: Cellulitis of left lower limb;Cellulitis of right lower limb;Pain in knee Presentation: 04/12 12:14 Chief complaint: Patient states: pain in left leg after bumping it against wall, has iw pain to left knee, also has hx of blood clots in his legs, is on eliquis, also has swelling and blistering to left leg that is new. Coronavirus screen: At this time, the client does not indicate any symptoms associated with coronavirus-19. Ebola Screen: Patient negative for fever greater than or equal to 101.5 degrees Fahrenheit, and additional compatible Ebola Virus Disease symptoms Patient denies exposure to infectious person. Patient denies travel to an Ebola-affected area in the 21 days before illness onset. No symptoms or risks identified at this time. Initial Sepsis Screen: Does the patient meet any 2 criteria? No. Patient's initial sepsis screen is negative. Does the patient have a suspected source of infection? No. Patient's initial sepsis screen is negative. Risk Assessment: Do you want to hurt yourself or someone else? Patient reports no desire to harm self or others. Onset of symptoms was April 11, 2021. 12:14 Method Of Arrival: Wheelchair iw 12:14 Acuity: JO 3 iw Triage Assessment: 15:00 General: Appears in no apparent distress. Behavior is calm, cooperative. iw Historical: - Allergies: 12:17 No Known Allergies; iw - Home Meds: 12:17 aspirin 325 mg Oral TbEC 1 tab once daily [Active]; Eliquis oral [Active]; atorvastatin iw 40 mg Oral tab 1 tab once daily [Active]; carvedilol 12.5 mg Oral tab 1 tab 2 times per day [Active]; chemo [Active]; Januvia 50 mg Oral tab 1 tab once daily [Active]; lisinopril 40 mg Oral tab 1 tab once daily [Active]; Magnesium Oxide Oral [Active]; - PMHx: 12:17 CVA; Left sided deficits; Diabetes - IDDM; Hypertension; kidney CA; with mets to liver; iw - PSHx: 12:17 partial nephrectomy on right; iw - Immunization history:: Client reports receiving the 2nd dose of the Covid vaccine. - Social history:: Smoking status: . Screenin:35 Abuse screen: Denies threats or abuse. Denies injuries from another. Nutritional iw screening: No deficits noted. Tuberculosis screening: No symptoms or risk factors identified. Fall Risk Fall in past 12 months (25 points). Assessment: 12:15 General: Appears in no apparent distress. Behavior is calm, cooperative. Pain: iw Complains of pain in left leg. Neuro: Level of Consciousness is awake, alert, obeys commands. Cardiovascular: Patient's skin is warm and dry. Respiratory: Respiratory effort is even, unlabored, Respiratory pattern is regular, symmetrical. Derm: Musculoskeletal: Swelling present in left leg. 15:27 Reassessment: Patient appears in no apparent distress at this time. Patient and/or iw family updated on plan of care and expected duration. Pain level reassessed. Patient is alert, oriented x 3, equal unlabored respirations, skin warm/dry/pink. Vital Signs: 12:14 BP 135 / 98; Pulse 66; Resp 16; Temp 98.3; Pulse Ox 100% on R/A; Weight 104.33 kg; iw Height 5 ft. 8 in. (172.72 cm); Pain 5/10; 15:27 BP 151 / 92; Pulse 73; Resp 18; Temp 97.4; Pulse Ox 100% on R/A; iw 12:14 Body Mass Index 34.97 (104.33 kg, 172.72 cm) iw ED Course: 11:18 Patient arrived in ED. ja2 12:15 Patient has correct armband on for positive identification. iw 12:17 Triage completed. iw 12:18 Arm band placed on. iw 14:22 US Extremity Venous Unilateral Ltd In Process Unspecified. EDMS 14:36 Knee Left 3 View XRAY In Process Unspecified. EDMS 15:27 Alexia Nguyen, RN is Primary Nurse. iw 15:31 Dwight Lopez PA is PHCP. jmm 15:31 Andriy Marie MD is Attending Physician. jmm 15:39 No provider procedures requiring assistance completed. Patient did not have IV access iw during this emergency room visit. Administered Medications: 15:39 Drug: [place] (HYDROcodone-acetaminophen) 5 mg-325 mg 1 tabs Route: PO; iw 15:40 Follow up: Response: No adverse reaction iw Outcome: 15:30 Discharge ordered by . abigail 15:39 Discharged to home via wheelchair. iw 15:39 Condition: good 15:39 Discharge instructions given to patient, Instructed on discharge instructions, follow up and referral plans. medication usage, Demonstrated understanding of instructions, follow-up care, medications, Prescriptions given X 2. 15:40 Patient left the ED. iw Signatures: Dispatcher [employer] EDMS Dwight Lopez PA PA jmm Williams, Irene, RN RN Lo Hilliard
--- NOTE | 2021-04-12 15:31 | EDPHYS ---
Physician Documentation [facility] Name: Froy Hatfield Age: 60 yrs Sex: Male : 1960 Arrival Date: 04/12/2021 Time: 11:18 Bed Waiting Private MD: ED Physician Andriy Marie HPI: 04/12 15:26 This 60 yrs old Black Male presents to ER via Wheelchair with complaints of Leg Pain, jmm LEFT LEG. 15:26 The patient presents with an injury, pain. Onset: The symptoms/episode began/occurred jmm acutely, today. Modifying factors: The symptoms are alleviated by nothing. the symptoms are aggravated by nothing. Associated signs and symptoms: Pertinent positives: swelling. This is a 60-year-old -[place] male with a history of CVA, diabetes mellitus, kidney cancer, hypertension the presents emerged part with complaints of left knee pain after hitting it against a wall. Patient is currently taking Eliquis for an existing blood clot in the left leg. Patient has no complaints of fever or chills, chest pain, shortness of breath.. Historical: - Allergies: 12:17 No Known Allergies; iw - Home Meds: 12:17 aspirin 325 mg Oral TbEC 1 tab once daily [Active]; Eliquis oral [Active]; atorvastatin iw 40 mg Oral tab 1 tab once daily [Active]; carvedilol 12.5 mg Oral tab 1 tab 2 times per day [Active]; chemo [Active]; Januvia 50 mg Oral tab 1 tab once daily [Active]; lisinopril 40 mg Oral tab 1 tab once daily [Active]; Magnesium Oxide Oral [Active]; - PMHx: 12:17 CVA; Left sided deficits; Diabetes - IDDM; Hypertension; kidney CA; with mets to liver; iw - PSHx: 12:17 partial nephrectomy on right; iw - Immunization history:: Client reports receiving the 2nd dose of the Covid vaccine. - Social history:: Smoking status: . ROS: 15:26 Constitutional: Negative for fever, chills, and weight loss, Cardiovascular: Negative jmm for chest pain, palpitations, and edema, Respiratory: Negative for shortness of breath, cough, wheezing, and pleuritic chest pain. 15:26 MS/extremity: Positive for injury or acute deformity, pain. 15:26 All other systems are negative. Exam: 15:26 Constitutional: This is a well developed, well nourished patient who is awake, alert, jmm and in no acute distress. Head/Face: atraumatic. Eyes: EOMI, no conjunctival erythema appreciated ENT: Moist Mucus Membranes Neck: Trachea midline, Supple Chest/axilla: Normal chest wall appearance and motion. Cardiovascular: Regular rate and rhythm. No edema appreciated Respiratory: Normal respirations, no respiratory distress appreciated Abdomen/GI: Non distended, soft Back: Normal ROM 15:26 Musculoskeletal/extremity: Full dorsalis pedis bilaterally, neurovascular intact. 15:26 Skin: Erythema noted to the left leg diffusely full dorsalis pedis appreciated, compartments are soft, there are noted to the medial surface of the left lower extremity. Area is not tender to palpation.. 15:26 Neuro: Orientation: is normal, Mentation: is normal, Memory: is normal. 15:26 Psych: Behavior/mood is pleasant, cooperative. Vital Signs: 12:14 BP 135 / 98; Pulse 66; Resp 16; Temp 98.3; Pulse Ox 100% on R/A; Weight 104.33 kg; iw Height 5 ft. 8 in. (172.72 cm); Pain 5/10; 15:27 BP 151 / 92; Pulse 73; Resp 18; Temp 97.4; Pulse Ox 100% on R/A; iw 12:14 Body Mass Index 34.97 (104.33 kg, 172.72 cm) iw MDM: 15:29 Data reviewed: vital signs, nurses notes. Counseling: I had a detailed discussion with abigail the patient and/or guardian regarding: the historical points, exam findings, and any diagnostic results supporting the discharge/admit diagnosis, the need for outpatient follow up, to return to the emergency department if symptoms worsen or persist or if there are any questions or concerns that arise at home. ED course: Patient patient is alert and nontoxic in appearance in the ED. There is erythema noted to the left leg and the right leg. Patient is afebrile, nontender in both lower extremities. Patient has no chest pain or shortness of breath. I do not currently suspect sepsis, PE. Patient states he is taking his Eliquis as prescribed. Will discharge with oral antibiotics and otherwise given strict return precautions. Patient understood and agrees plan of care.. 15:30 Patient medically screened. [facility] 04/12 13:12 Order name: US Extremity Venous Unilateral Ltd; Complete Time: 15:22 iw 04/12 13:12 Order name: Knee Left 3 View XRAY; Complete Time: 15:22 iw Administered Medications: 15:39 Drug: [place] (HYDROcodone-acetaminophen) 5 mg-325 mg 1 tabs Route: PO; iw 15:40 Follow up: Response: No adverse reaction iw Disposition: 17:48 Co-signature as Attending Physician, Andriy Marie MD I agree with the assessment and kdr plan of care. Disposition Summary: 04/12/21 15:30 Discharge Ordered Location: Home [facility] Condition: Stable jm Diagnosis - Cellulitis of left lower limb jmm - Cellulitis of right lower limb jmm - Pain in knee jm Followup: jmm - With: Private Physician - When: 2 - 3 days - Reason: Recheck today's complaints, Continuance of care, Re-evaluation by your physician Discharge Instructions: - Discharge Summary Sheet jm - Cellulitis, Adult jm Forms: - Medication Reconciliation Form [facility] - Thank You Letter jm - Antibiotic Education jmm - Prescription Opioid Use [facility] Prescriptions: - Doxycycline Hyclate 100 mg Oral Tablet - take 1 tablet by ORAL route every 12 hours; 20 tablet; Refills: 0, Product [facility] Selection Permitted Signatures: Dispatcher [employer] EDAndriy Ellis MD MD [facility] Dwight Lopez PA PA jmm Alexia Nguyen, RN RN iw
[2021-04-12] MEDS ORDERED: HYDROCODONE/APAP 5/325 MG TAB ONE (16:01)
[2021-04-12 16:16] VITALS: BP 151/92; TEMP 97.4; O2SAT 100
== END 2021-04-12 15:40 | disposition home or self-care (01) ==
LOC: ER 11:11
DX: L03.116 Cellulitis of left lower limb (principal); L03.115 Cellulitis of right lower limb; I10 Essential (primary) hypertension; E11.9 Type 2 diabetes mellitus without complications; Z79.01 Long term (current) use of anticoagulants; Z79.82 Long term (current) use of aspirin; Z85.528 Personal history of other malignant neoplasm of kidney; Z85.05 Personal history of malignant neoplasm of liver
CPT/HCPCS: 93971; 99283

== ENCOUNTER 2021-09-16 11:03 | Inpatient (IN) | payer OTHER ==
--- OUTSIDE RECORDS SUMMARY | 2021-09-16 11:15 | XMS REPORT | Continuity of Care Document ---
:[address] [facility] t Address [address] [place] [address] Care Team Providers Name Role Phone System, Not In Primary Care Physician ISHAAN BERMUDEZ Attending Clinician Unavailable LAURA UNGER Attending Clinician Unavailable ISHAAN BERMUDEZ Attending Clinician Unavailable KASIA KELLY Attending Clinician Unavailable Ishaan Bermudez MD Attending Clinician Ishaan Bermudez MD Attending Clinician , [facility] Room Attending Clinician Unavailable Laura Unger NP Attending Clinician Fredy Kan MD Attending Clinician Migel Carrion MD Attending Clinician Kyle PRICE, PDavidson Attending Clinician Zuleyma Redding MD Attending Clinician ZULEYMA REDDING Attending Clinician Unavailable KAYLEN MOFFETT Attending Clinician Unavailable MARSHALL PLUMMER Attending Clinician Unavailable ZULEYMA REDDING Admitting Clinician Unavailable ISHAAN BERMUDEZ Admitting Clinician Unavailable KAYLEN MOFFETT Admitting Clinician Unavailable MARSHALL PLUMMER Admitting Clinician Unavailable Payers Payer Name Policy Type Policy Number Effective Date Expiration Date S cari MEDICARE A B [id number] 2015 00:00:00 MEDICAID [facility] [id number] 2021 00:00:00 MEDICARE PART A [id number] \\T\\ B - MEDICARE TMHP-MEDICAID - [id number] 2020 MEDICAID 00:00:00 COMMUNITY PLAN [id number] 2020 2020 STAR - UHC 00:00:00 00:00:00 STAR PLUS - [id number] 2017 VALENCIA 00:00:00 [facility] PFAP PROGRAM [id number] 2016 - [facility] PFAP 00:00:00 PROGRAM SRIDEVI [facility] COMM STAR [id number] 2020 PLAN 00:00:00 CDC REVIEW [id number] 2020 00:00:00 Problems Condition Condition Condition Status Onset Resolution Last Treating Co mments Source Name Details Category Date Date Treatment Clinician Date Liver mass Liver mass Disease Active 2019-[address] [facility] Cancer of Disease Active 2019-[address] [facility] right right 0-07 [facility] - kidney kidney 00:00: Medical 00 [facility] Cancer of Disease Active [facility] right right 2-11 College kidney kidney 00:00: of (HCCode) (HCCode) 00 Medici n e Right Right Disease Active [facility] renal mass renal mass 3-19 [facility] - 00:00: Medical 00 [facility] Sepsis due Sepsis due Disease Active 2017-08 [...] [facility] 00 [facility] Sepsis Sepsis Disease Active 2017-[address] [facility] Center Stroke Stroke Disease Active [facility] (HCCode) (HCCode) Colleg e of Medicin e UTI UTI Disease Active [facility] (urinary (urinary Colleg e tract tract of infection) infection) Me dicin e Hypertensi Hypertensi Disease Active [facility] of [facility] Diabetes Diabetes Disease Active [facility] of Medicin e 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 College disease disease of Medicin e Heart Heart Disease Active [facility] failure failure [facility] of Medicin e Allergies, Adverse Reactions, Alerts Allergy Allergy Status Severity Reaction(s) Onset Inactive Treating Comm ents Source Name Type Date Date Clinician MILK Allergy [facility] Milk Drug Active Other [facility] Allergy 12-29 reaction( [facility] s): Medical 00 diarrhea [facility] Milk Propensi Active Other [facility] ty to 12-29 reaction( College adverse 00:00: s): of reaction 00 diarrheaO Medic in s to ther e food reaction( s): diarrhea NO KNOWN Allergy Active [facility] Family History Family Member Diagnosis Comments Start Date Stop Date Source Natural brother Diabetes [facility] Natural brother Hypertension [facility] Natural brother Stroke [facility] Natural father No Known Problem [facility] Natural mother Diabetes [facility] Natural mother Hypertension [facility] Natural sister Diabetes [facility] Natural sister Hypertension [facility] Natural sister Stroke [facility] Social History Social Habit Start Date Stop Date Quantity Comments Source Exposure to Not sure [facility] Colleg e SARS-CoV-2 (event) of Med icine History [facility] ge Alcohol Comment of Medici ne History [facility] ge Alcohol Std Drinks of Med icine History [facility] ge Alcohol Binge of Medicine Alcohol intake 2021-05-23 2021-05-23 Current [facility] Col lege 00:00:00 00:00:00 non-drinker of of Medicin e alcohol (finding) Tobacco use and 2018-08-12 2018-08-12 Smokeless tobacco [facility] exposure 00:00:00 00:00:00 non-user of Medicine History [facility] 2018-08-12 2018-08-12 1 [facility] Rosenda Alcohol Frequency 00:00:00 00:00:00 of Medi cine History of tobacco 2011-07-09 Smoker [facility] - use 00:00:00 [facility] Sex Ass[birth year] At [birth year] [facility] Co llege 00:00:00 00:00:00 of Medicine Smoking Status Start Date Stop Date Source Former smoker 2020-05-09 00:00:00 2020-05-09 00:00:00 [facility] Medications Ordered Filled Start Stop Current Ordering Indication Dosage Frequency Signature Comments Components Source Medication Medication Date Date Medication? Clinician (SIG) Name Name lisinopril 2020-08 Yes 40mg Take 40 mg [facility] (PRINIVIL, 2-17 by mouth. [facility] ZESTRIL) 40 10:34: of MG tablet 00 Medicin e amlodipine 2020-08 Yes 10mg Take 10 mg [facility] (NORVASC) 2-17 by mouth Colleg e 10 MG 10:34: daily. of tablet 00 Medicin e atorvastati 2020-08 Yes 40mg Take 40 mg [facility] n (LIPITOR) 2-17 by mouth [facility] 40 MG 10:34: daily. of tablet 00 Medicin e docusate 2020-08 Yes 100mg Take 100 [facility] sodium 2-17 mg by [facility] (COLACE) 10:34: mouth two of 100 MG 00 times Medicin capsule daily. e lisinopril 2020-08 Yes 40mg Take 40 mg [facility] (PRINIVIL, 0-22 by mouth. [facility] ZESTRIL) 40 13:10: of MG tablet 13 Medicin e amlodipine 2020-08 Yes 10mg Take 10 mg [facility] (NORVASC) 0-22 by mouth Colleg e 10 MG 13:10: daily. of tablet 13 Medicin e atorvastati 2020-08 Yes 40mg Take 40 mg [facility] (LIPITOR) 0-22 by mouth [facility] 40 MG 13:10: daily. of tablet 13 Medicin e docusate 2020-08 Yes 100mg Take 100 [facility] sodium 0-22 mg by [facility] (COLACE) 13:10: mouth two of 100 MG 13 times Medicin capsule daily. e mupirocin 2020-08 Yes Apply to [facility] (BACTROBAN) 0-07 aa BID for Co llege 2 % 00:00: 2 weeks. of ointment 00 Medicin e mupirocin 2020-08 Yes Apply to [facility] (BACTROBAN) 0-07 aa BID for Co llege 2 % 00:00: 2 weeks. of ointment 00 Medicin e mupirocin 2020-08 Yes Apply to [facility] (BACTROBAN) 0-07 aa BID for Co llege 2 % 00:00: 2 weeks. of ointment 00 Medicin e CABOMETYX 2020-08 Yes [id number] TAKE 1 [facility] 40 MG TABS 0-04 TABLET BY [facility] 00:00: MOUTH of 00 DAILY ON Medicin AN EMPTY e STOMACH 1 HOUR BEFORE OR 2 HOURS AFTER A MEAL CABOMETYX 2020-08 Yes [id number] TAKE 1 [facility] 40 MG TABS 0-04 TABLET BY [facility] 00:00: MOUTH of 00 DAILY ON Medicin AN EMPTY e STOMACH 1 HOUR BEFORE OR 2 HOURS AFTER A MEAL CABOMETYX 2020-08 Yes [id number] TAKE 1 [facility] 40 MG TABS 0-04 TABLET BY [facility] 00:00: MOUTH of 00 DAILY ON Medicin AN EMPTY e STOMACH 1 HOUR BEFORE OR 2 HOURS AFTER A MEAL doxycycline 2020-0 Yes [facility] (ADOXA) 100 9-29 College MG tablet 00:00: of 00 Medicin e doxycycline 2020-0 Yes [facility] (ADOXA) 100 9-29 College MG tablet 00:00: of 00 Medicin e doxycycline 2020-0 Yes [facility] (ADOXA) 100 9-29 College MG tablet 00:00: of 00 Medicin e doxycycline 2020-0 Yes 100mg Take 1 [facility] (VIBRAMYCIN 9-27 capsule by Co llege ) 100 MG 00:00: mouth two of capsule 00 times Medicin daily. e doxycycline 2020-0 Yes 100mg Take 1 [facility] (VIBRAMYCIN 9-27 capsule by Co llege ) 100 MG 00:00: mouth two of capsule 00 times Medicin daily. e doxycycline 2020-0 Yes 100mg Take 1 [facility] (VIBRAMYCIN 9-27 capsule by Co llege ) 100 MG 00:00: mouth two of capsule 00 times Medicin daily. e triamcinolo 2020-0 Yes Apply to [facility] 9-23 affected [facility] 00:00: area 2 of 0.1 % 00 times Medicin ointment daily. e Avoid face/groin /axillae triamcinolo 2020-0 Yes Apply to [facility] 9-[facility] affected [facility] ([facility]) 00:00: area 2 of 0.1 % 00 times Medicin ointment daily. e Avoid face/groin /axillae triamcinolo 2020-0 Yes Apply to [facility] 9-23 affected [facility] ([facility]) 00:00: area 2 of 0.1 % 00 times Medicin ointment daily. e Avoid face/groin /axillae triamcinolo 2020-0 Yes Apply to [facility] 9-23 affected [facility] (ART) 00:00: area 2 of 0.1 % 00 times Medicin ointment daily. e Avoid face/groin /axillae triamcinolo 2020-0 Yes Apply to [facility] 9-23 affected [facility] ([facility]) 00:00: area 2 of 0.1 % 00 times Medicin ointment daily. e Avoid face/groin /axillae ELIQUIS 5 2020-0 Yes TAKE 1 [facility] MG TABS 9-16 TABLET BY College 00:00: MOUTH of 00 TWICE A Medicin DAY e ELIQUIS 5 2020-0 Yes TAKE 1 [facility] MG TABS 9-16 TABLET BY College 00:00: MOUTH of 00 TWICE A Medicin DAY e ELIQUIS 5 2020-0 Yes TAKE 1 [facility] MG TABS 9-16 TABLET BY College 00:00: MOUTH of 00 TWICE A Medicin DAY e carvedilol 2020-0 Yes TAKE 1 [facility] (COREG) 9-13 TABLET BY College 12.5 MG 00:00: MOUTH of tablet 00 TWICE A Medicin DAY e carvedilol 2020-0 Yes TAKE 1 [facility] (COREG) 9-13 TABLET BY [facility] 12.5 MG 00:00: MOUTH of tablet 00 TWICE A Medicin DAY e carvedilol 2020-0 Yes TAKE 1 [facility] (COREG) 9-13 TABLET BY [facility] 12.5 MG 00:00: MOUTH of tablet 00 TWICE A Medicin DAY e lisinopril 0 Yes 40mg Take 40 mg [facility] (PRINIVIL, 8-24 by mouth. [facility] ZESTRIL) 40 11:32: of MG tablet 28 Medicin e amlodipine 0 Yes 10mg Take 10 mg [facility] (NORVASC) 8-24 by mouth Colleg e 10 MG 11:32: daily. of tablet 28 Medicin e atorvastati 0 Yes 40mg Take 40 mg [facility] (LIPITOR) 8-24 by mouth [facility] 40 MG 11:32: daily. of tablet 28 Medicin e docusate 0 Yes 100mg Take 100 [facility] sodium 8-24 mg by [facility] (COLACE) 11:32: mouth two of 100 MG 28 times Medicin capsule daily. e lisinopril 2020-0 Yes 40mg Take 40 mg [facility] (PRINIVIL, 8-24 by mouth. [facility] ZESTRIL) 40 11:32: of MG tablet 28 Medicin e amlodipine 0 Yes 10mg Take 10 mg [facility] (NORVASC) 8-24 by mouth Colleg e 10 MG 11:32: daily. of tablet 28 Medicin e atorvastati 0 Yes 40mg Take 40 mg [facility] n (LIPITOR) 8-24 by mouth [facility] 40 MG 11:32: daily. of tablet 28 Medicin e docusate 0 Yes 100mg Take 100 [facility] sodium 8-24 mg by [facility] (COLACE) 11:32: mouth two of 100 MG 28 times Medicin capsule daily. e lisinopril 2020-0 Yes 40mg Take 40 mg [facility] (PRINIVIL, 8-24 by mouth. [facility] ZESTRIL) 40 11:32: of MG tablet 28 Medicin e amlodipine 2020-0 Yes 10mg Take 10 mg [facility] (NORVASC) 8-24 by mouth Colleg e 10 MG 11:32: daily. of tablet 28 Medicin e atorvastati 2020-0 Yes 40mg Take 40 mg [facility] n (LIPITOR) 8-24 by mouth [facility] 40 MG 11:32: daily. of tablet 28 Medicin e docusate 2020-0 Yes 100mg Take 100 [facility] sodium 8-24 mg by [facility] (COLACE) 11:32: mouth two of 100 MG 28 times Medicin capsule daily. e lisinopril 0 Yes 40mg Take 40 mg [facility] (PRINIVIL, 8-24 by mouth. [facility] ZESTRIL) 40 11:32: of MG tablet 28 Medicin e amlodipine 0 Yes 10mg Take 10 mg [facility] (NORVASC) 8-24 by mouth Colleg e 10 MG 11:32: daily. of tablet 28 Medicin e atorvastati Yes 40mg Take 40 mg [facility] (LIPITOR) 8-24 by mouth [facility] 40 MG 11:32: daily. of tablet 28 Medicin e docusate Yes 100mg Take 100 [facility] sodium 8-24 mg by [facility] 11:32: mouth two of 100 MG 28 times Medicin capsule daily. e MAG64 64 MG 0 Yes TAKE 1 [facility] TBEC 8-18 TABLET BY [facility] 00:00: MOUTH of 00 TWICE A Medicin DAY e MAG64 64 MG 2020-0 Yes TAKE 1 [facility] TBEC 8-18 TABLET BY [facility] 00:00: MOUTH of 00 TWICE A Medicin DAY e MAG64 64 MG 2020-0 Yes TAKE 1 [facility] TBEC 8-18 TABLET BY [facility] 00:00: MOUTH of 00 TWICE A Medicin DAY e omeprazole 2020-0 Yes TAKE 1 [facility] (PRILOSEC) 8-11 CAPSULE BY Col lege 40 MG 00:00: MOUTH of capsule 00 EVERY DAY Medicin e omeprazole 2020-0 Yes TAKE 1 [facility] (PRILOSEC) 8-11 CAPSULE BY Col lege 40 MG 00:00: MOUTH of capsule 00 EVERY DAY Medicin e omeprazole 2020-0 Yes TAKE 1 [facility] (PRILOSEC) 8-11 CAPSULE BY Col lege 40 MG 00:00: MOUTH of capsule 00 EVERY DAY Medicin e lisinopril 2020-0 Yes 40mg Take 40 mg [facility] (PRINIVIL, 6-22 by mouth. [facility] ZESTRIL) 40 11:48: of MG tablet 18 Medicin e amlodipine 0 Yes 10mg Take 10 mg [facility] (NORVASC) 6-22 by mouth Colleg e 10 MG 11:48: daily. of tablet 18 Medicin e atorvastati 0 Yes 40mg Take 40 mg [facility] n (LIPITOR) 6-22 by mouth [facility] 40 MG 11:48: daily. of tablet 18 Medicin e docusate 0 Yes 100mg Take 100 [facility] sodium 6-22 mg by [facility] (COLACE) 11:48: mouth two of 100 MG 18 times Medicin capsule daily. e lisinopril 0 Yes 40mg Take 40 mg [facility] (PRINIVIL, 4-27 by mouth. [facility] ZESTRIL) 40 15:16: of MG tablet 51 Medicin e amlodipine 0 Yes 10mg Take 10 mg [facility] (NORVASC) 4-27 by mouth Colleg e 10 MG 15:16: daily. of tablet 51 Medicin e atorvastati 0 Yes 40mg Take 40 mg [facility] n (LIPITOR) 4-27 by mouth [facility] 40 MG 15:16: daily. of tablet 51 Medicin e docusate Yes 100mg Take 100 [facility] sodium 4-27 mg by [facility] (COLACE) 15:16: mouth two of 100 MG 51 times Medicin capsule daily. e tramadol 2020- No 50mg Take 50 mg [facility] (ULTRAM) 50 - 04-27 by mouth Col lege MG tablet 15:16: 00:00 every 6 of 44 :00 hours as Medicin needed for e Pain. lisinopril Yes 40mg Take 40 mg [facility] (PRINIVIL, 3-02 by mouth. [facility] ZESTRIL) 40 16:02: of MG tablet 51 Medicin e amlodipine 0 Yes 10mg Take 10 mg [facility] (NORVASC) 3-02 by mouth Colleg e 10 MG 16:02: daily. of tablet 51 Medicin e tramadol 0 Yes 50mg Take 50 mg [facility] (ULTRAM) 50 3-02 by mouth [facility] MG tablet 16:02: every 6 of 51 hours as Medicin needed for e Pain. atorvastati 0 Yes 40mg Take 40 mg [facility] (LIPITOR) 3-02 by mouth [facility] 40 MG 16:02: daily. of tablet 51 Medicin e docusate Yes 100mg Take 100 [facility] sodium 3-02 mg by [facility] ([facility] 16:02: mouth two of 100 MG 51 times Medicin capsule daily. e lisinopril 2019-08 Yes 40mg Take 40 mg [facility] (PRINIVIL, 2-22 by mouth. [facility] ZESTRIL) 40 15:47: of MG tablet 30 Medicin e amlodipine 2019-08 Yes 10mg Take 10 mg [facility] (NORVASC) 2-22 by mouth Colleg e 10 MG 15:47: daily. of tablet 30 Medicin e tramadol 2019-08 Yes 50mg Take 50 mg [facility] (ULTRAM) 50 2-22 by mouth [facility] MG tablet 15:47: every 6 of 30 hours as Medicin needed for e Pain. atorvastati 2019-08 Yes 40mg Take 40 mg [facility] (LIPITOR) 2-22 by mouth [facility] 40 MG 15:47: daily. of tablet 30 Medicin e docusate 2019-08 Yes 100mg Take 100 [facility] sodium 2-22 mg by [facility] (COLACE) 15:47: mouth two of 100 MG 30 times Medicin capsule daily. e lisinopril 2019-08 Yes 40mg Take 40 mg [facility] (PRINIVIL, 0-23 by mouth. [facility] ZESTRIL) 40 17:26: of MG tablet 37 Medicin e amlodipine 2019-08 Yes 10mg Take 10 mg [facility] (NORVASC) 0-23 by mouth Colleg e 10 MG 17:26: daily. of tablet 37 Medicin e tramadol 2019-08 Yes 50mg Take 50 mg [facility] (ULTRAM) 50 0-23 by mouth [facility] MG tablet 17:26: every 6 of 37 hours as Medicin needed for e Pain. atorvastati 2019-08 Yes 40mg Take 40 mg [facility] n (LIPITOR) 0-23 by mouth [facility] 40 MG 17:26: daily. of tablet 37 Medicin e docusate 2019-08 Yes 100mg Take 100 [facility] sodium 0-23 mg by [facility] ([facility] 17:26: mouth two of 100 MG 37 times Medicin capsule daily. e atorvastati 2019-08 Yes 40mg QD Take [address] [facility] n (LIPITOR) 0-08 by mouth [facility] - 40 MG 17:37: daily. Medical tablet 48 [facility] lisinopril 2019-08 Yes 40mg QD Take [address] (PRINIVIL,Z 0-08 by mouth [facility] - ESTRIL) 40 17:37: daily. Medic al MG tablet 48 [facility] aspirin 81 2019-08 Yes 81mg QD Take [address] MG EC 0-08 by mouth [facility] - tablet 17:37: daily. Medical 48 [facility] docusate 2019-08 Yes 100mg QD Take [address] [facility] sodium 0-08 mg by [facility] - (COLACE) 17:37: mouth Medical 100 MG 48 daily. Center capsule atorvastati 2019-08 Yes 40mg QD Take [address] [facility] n (LIPITOR) 0-08 by mouth [facility] - 40 MG 17:37: daily. Medical tablet 48 [facility] lisinopril 2019-08 Yes 40mg QD Take [address] (PRINIVIL,Z 0-08 by mouth [facility] - ESTRIL) 40 17:37: daily. Medic al MG tablet 48 [facility] aspirin 81 2019-08 Yes 81mg QD Take [address] MG EC 0-08 by mouth [facility] - tablet 17:37: daily. Medical [address] [place] [address] docusate 2019-08 Yes 100mg QD Take [address] sodium 0-08 mg by [facility] - (COLACE) 17:37: mouth Medical 100 MG 48 daily. [facility] capsule atorvastati 2019-08 Yes 40mg QD Take [address] [facility] n (LIPITOR) 0-08 by mouth [facility] - 40 MG 17:37: daily. Medical tablet 48 [facility] lisinopril 2019-08 Yes 40mg QD Take [address] (PRINIVIL,Z 0-08 by mouth [facility] - ESTRIL) 40 17:37: daily. Medic al MG tablet 48 [facility] aspirin 81 2019-08 Yes 81mg QD Take [address] MG EC 0-08 by mouth [facility] - tablet 17:37: daily. Medical [address] [place] [address] docusate 2019-08 Yes 100mg QD Take [address] sodium 0-08 mg by [facility] - (COLACE) 17:37: mouth Medical 100 MG 48 daily. Center capsule acetaminoph 2020-1 Yes 650mg Take [address] [facility] en 0-08 tablets [facility] - (TYLENOL) 00:00: (650 mg Medic al 325 MG 00 total) by Center tablet mouth every 6 (six) hours as needed for Pain. acetaminoph 2020-1 Yes 650mg Take [address] [facility] en 0-08 tablets [facility] - (TYLENOL) 00:00: (650 mg Medic al 325 MG 00 total) by Center tablet mouth every 6 (six) hours as needed for Pain. acetaminoph 2020-1 Yes 650mg Take [address] [facility] en 0-08 tablets [facility] - (TYLENOL) 00:00: (650 mg Medic al 325 MG 00 total) by Center tablet mouth every 6 (six) hours as needed for Pain. lisinopril 2020-0 Yes 40mg Take 40 mg [facility] (PRINIVIL, 9-25 by mouth. [facility] ZESTRIL) 40 14:59: of MG tablet 43 Medicin e amlodipine 2020-0 Yes 10mg Take 10 mg [facility] (NORVASC) 9-25 by mouth Colleg e 10 MG 14:59: daily. of tablet 43 Medicin e tramadol 2020-0 Yes 50mg Take 50 mg [facility] (ULTRAM) 50 9-25 by mouth [facility] MG tablet 14:59: every 6 of 43 hours as Medicin needed for e Pain. atorvastati 2020-0 Yes 40mg Take 40 mg [facility] (LIPITOR) 9-25 by mouth [facility] 40 MG 14:59: daily. of tablet 43 Medicin e docusate 2020-0 Yes 100mg Take 100 [facility] sodium 9-25 mg by College (COLACE) 14:59: mouth two of 100 MG 43 times Medicin capsule daily. e Cabozantini 2020-0 Yes DAILY [facility] 9-17 College 40 MG TABS 00:00: of 00 Medicin e Cabozantini 2020-0 Yes DAILY [facility] 9-17 College 40 MG TABS 00:00: of 00 Medicin e CABOMETYX 2020-0 Yes 1{tbl} QD Take [address] [facility] [facility] 40 mg Tab 9-17 tablet by [facility] - 00:[facility]: mouth Medical 00 daily. Center CABOMETYX 2020-0 Yes 1{tbl} QD Take [address] [facility] 40 mg Tab 9-17 tablet by [facility] - 00:[facility]: mouth Medical 00 daily. [facility] CABOMETYX 2020-0 Yes 1{tbl} QD Take [address] 40 mg Tab 9-17 tablet by [facility] - 00:[facility]: mouth Medical 00 daily. [facility] lisinopril 2020-0 Yes 40mg Take 40 mg [facility] (PRINIVIL, 8-21 by mouth. [facility] ZESTRIL) 40 14:19: of MG tablet 35 Medicin e amlodipine 2020-0 Yes 10mg Take 10 mg [facility] (NORVASC) 8-21 by mouth Colleg e 10 MG 14:19: daily. of tablet 35 Medicin e tramadol 2020-0 Yes 50mg Take 50 mg [facility] (ULTRAM) 50 8-21 by mouth [facility] MG tablet 14:19: every 6 of 35 hours as Medicin needed for e Pain. atorvastati 2020-0 Yes 40mg Take 40 mg [facility] n (LIPITOR) 8-21 by mouth [facility] 40 MG 14:19: daily. of tablet 35 Medicin e docusate 2020-0 Yes 100mg Take 100 [facility] sodium 8-21 mg by College (COLACE) 14:19: mouth two of 100 MG 35 times Medicin capsule daily. e Cabozantini 2020-0 2020- No [id number] 40mg Take 40 mg [facility] b S-Malate 8-21 -21 by mouth [facility] 40 MG TABS 00:00: 04:59 daily for o f 00 :00 30 days. Medicin e lisinopril 2020-0 Yes 40mg Take 40 mg [facility] (PRINIVIL, 7-10 by mouth. [facility] ZESTRIL) 40 15:19: of MG tablet 30 Medicin e amlodipine 2020-0 Yes 10mg Take 10 mg [facility] (NORVASC) 7-10 by mouth Colleg e 10 MG 15:19: daily. of tablet 30 Medicin e tramadol 2020-0 Yes 50mg Take 50 mg [facility] (ULTRAM) 50 7-10 by mouth [facility] MG tablet 15:19: every 6 of 30 hours as Medicin needed for e Pain. atorvastati 2020-0 Yes 40mg Take 40 mg [facility] n (LIPITOR) 7-10 by mouth [facility] 40 MG 15:19: daily. of tablet 30 Medicin e docusate 2020-0 Yes 100mg Take 100 [facility] sodium 7-10 mg by College (COLACE) 15:19: mouth two of 100 MG 30 times Medicin capsule daily. e lisinopril 2020-0 Yes 40mg Take 40 mg [facility] (PRINIVIL, 5-01 by mouth. [facility] ZESTRIL) 40 15:05: of MG tablet 42 Medicin e amlodipine 2020-0 Yes 10mg Take 10 mg [facility] (NORVASC) 5-01 by mouth Colleg e 10 MG 15:05: daily. of tablet 42 Medicin e tramadol 2020-0 Yes 50mg Take 50 mg [facility] (ULTRAM) 50 5-01 by mouth [facility] MG tablet 15:05: every 6 of 42 hours as Medicin needed for e Pain. atorvastati 2020-0 Yes 40mg Take 40 mg [facility] n (LIPITOR) 5-01 by mouth [facility] 40 MG 15:05: daily. of tablet 42 Medicin e docusate 2020-0 Yes 100mg Take 100 [facility] sodium 5-01 mg by [facility] (COLACE) 15:05: mouth two of 100 MG 42 times Medicin capsule daily. e lisinopril 2020-0 Yes 40mg Take 40 mg [facility] (PRINIVIL, 3-27 by mouth. [facility] ZESTRIL) 40 14:06: of MG tablet 57 Medicin e amlodipine 2020-0 Yes 10mg Take 10 mg [facility] (NORVASC) 3-27 by mouth Colleg e 10 MG 14:06: daily. of tablet 57 Medicin e tramadol 2020-0 Yes 50mg Take 50 mg [facility] (ULTRAM) 50 3-27 by mouth [facility] MG tablet 14:06: every 6 of 57 hours as Medicin needed for e Pain. atorvastati 2020-0 Yes 40mg Take 40 mg [facility] (LIPITOR) 3-27 by mouth [facility] 40 MG 14:06: daily. of tablet 57 Medicin e docusate 2020-0 Yes 100mg Take 100 [facility] sodium 3-27 mg by [facility] (COLACE) 14:06: mouth two of 100 MG 57 times Medicin capsule daily. e lisinopril 2020-0 Yes 40mg Take 40 mg [facility] (PRINIVIL, 3-06 by mouth. [facility] ZESTRIL) 40 17:15: of MG tablet 13 Medicin e amlodipine 2020-0 Yes 10mg Take 10 mg [facility] (NORVASC) 3-06 by mouth Colleg e 10 MG 17:15: daily. of tablet 13 Medicin e tramadol 2020-0 Yes 50mg Take 50 mg [facility] (ULTRAM) 50 3-06 by mouth [facility] MG tablet 17:15: every 6 of 13 hours as Medicin needed for e Pain. atorvastati 2020-0 Yes 40mg Take 40 mg [facility] (LIPITOR) 3-06 by mouth [facility] 40 MG 17:15: daily. of tablet 13 Medicin e docusate 2020-0 Yes 100mg Take 100 [facility] sodium 3-06 mg by [facility] (COLACE) 17:15: mouth two of 100 MG 13 times Medicin capsule daily. e lisinopril 2020-0 Yes 40mg Take 40 mg [facility] (PRINIVIL, 2-07 by mouth. [facility] ZESTRIL) 40 15:49: of MG tablet 29 Medicin e amlodipine 2020-0 Yes 10mg Take 10 mg [facility] (NORVASC) 2-07 by mouth Colleg e 10 MG 15:49: daily. of tablet 29 Medicin e tramadol 2020-0 Yes 50mg Take 50 mg [facility] (ULTRAM) 50 2-07 by mouth [facility] MG tablet 15:49: every 6 of 29 hours as Medicin needed for e Pain. atorvastati 2020-0 Yes 40mg Take 40 mg [facility] n (LIPITOR) 2-07 by mouth [facility] 40 MG 15:49: daily. of tablet 29 Medicin e docusate 2020-0 Yes 100mg Take 100 [facility] sodium 2-07 mg by [facility] (COLACE) 15:49: mouth two of 100 MG 29 times Medicin capsule daily. e Axitinib 5 2020-0 2020- No [id number] 5mg Take 5 mg [facility] MG TABS 2-07 03-09 by mouth [facility] 00:00: 04:59 two times of 00 :00 daily for Medicin 30 days. e Part of cancer treatment regimen Axitinib 5 2019-0 2020- No [id number] 5mg Take 5 mg [facility] MG TABS 2-07 -09 by mouth [facility] 00:00: 04:59 two times of 00 :00 daily for Medicin 30 days. e Part of cancer treatment regimen lisinopril 2020-0 Yes 40mg Take 40 mg [facility] (PRINIVIL, 1-31 by mouth. [facility] ZESTRIL) 40 18:43: of MG tablet 07 Medicin e amlodipine 2019-0 Yes 10mg Take 10 mg [facility] (NORVASC) 1-31 by mouth [facility] 10 MG 18:43: daily. of tablet 07 Medicin e tramadol 2019-0 Yes 50mg Take 50 mg [place] [facility] (ULTRAM) 50 -31 by mouth [facility] MG tablet 18:43: every 6 of 07 hours as Medicin needed for e Pain. atorvastati 2019-0 Yes 40mg Take 40 mg [facility] (LIPITOR) -31 by mouth [facility] 40 MG 18:43: daily. of tablet 07 Medicin e docusate 2019-0 Yes 100mg Take 100 [facility] sodium 1-31 mg by [facility] (COLACE) 18:43: mouth two of 100 MG 07 times Medicin capsule daily. e lisinopril Yes 40mg Take 40 mg [facility] (PRINIVIL, 9-24 by mouth. [facility] ZESTRIL) 40 14:58: of MG tablet 34 Medicin e amlodipine 2018-0 Yes 10mg Take 10 mg [facility] (NORVASC) 9-24 by mouth [facility] 10 MG 14:58: daily. of tablet 34 Medicin e tramadol 2019-0 Yes 50mg Take 50 mg [place] [facility] (ULTRAM) 50 9-24 by mouth [facility] MG tablet 14:58: every 6 of 34 hours as Medicin needed for e Pain. atorvastati 2019-0 Yes 40mg Take 40 mg [facility] n (LIPITOR) 9-24 by mouth [facility] 40 MG 14:58: daily. of tablet 34 Medicin e docusate 2019-0 Yes 100mg Take 100 [facility] sodium 9-24 mg by [facility] (COLACE) 14:58: mouth two of 100 MG 34 times Medicin capsule daily. e megestrol 2019- 2019- No [id number] 400mg Take 10 mL [facility] (MEGACE) 9-24 10-25 by mouth [facility] e suspension 00:00: 04:59 two times o f 00 :00 daily for Medicin 30 days. e SUNItinib 2019- No [id number] 37.5mg 37.5 mg [facility] Malate 37.5 04-26 daily for [facility] llege MG CAPS 00:00: 04:59 14 days. of 00 :00 Take daily Medicin for 14 e days and then stop for 7 days. Then repeat ciprofloxac 2019-0 Yes 500mg Take 1 Tab [facility] in (CIPRO) 3-15 by mouth [facility] 500 MG 00:00: two times of tablet 00 daily. Medicin e ciprofloxac 2019-0 Yes 500mg Take 1 Tab [facility] in (CIPRO) 3-15 by mouth [facility] 500 MG 00:00: two times of tablet 00 daily. Medicin e ciprofloxac 2019-0 Yes 500mg Take 1 Tab [facility] (CIPRO) 3-15 by mouth [facility] 500 MG 00:00: two times of tablet 00 daily. Medicin e ciprofloxac 2019-0 Yes 500mg Take 1 Tab [facility] in (CIPRO) 3-15 by mouth [facility] 500 MG 00:00: two times of tablet 00 daily. Medicin e ciprofloxac 2019-0 Yes 500mg Take 1 Tab [facility] (CIPRO) 3-15 by mouth [facility] 500 MG 00:00: two times of tablet 00 daily. Medicin e ciprofloxac 2019-0 Yes 500mg Take 1 Tab [facility] (CIPRO) 3-15 by mouth [facility] 500 MG 00:00: two times of tablet 00 daily. Medicin e ciprofloxac 2019-0 Yes 500mg Take 1 Tab [facility] (CIPRO) 3-15 by mouth [facility] 500 MG 00:00: two times of tablet 00 daily. Medicin e ciprofloxac 2019-0 Yes 500mg Take 1 Tab [facility] in (CIPRO) 3-15 by mouth [facility] 500 MG 00:00: two times of tablet 00 daily. Medicin e ciprofloxac 2019-0 Yes 500mg Take 1 Tab [facility] in (CIPRO) 3-15 by mouth [facility] 500 MG 00:00: two times of tablet 00 daily. Medicin e ciprofloxac 2019-0 Yes 500mg Take 1 Tab [facility] (CIPRO) 3-15 by mouth [facility] 500 MG 00:00: two times of tablet 00 daily. Medicin e ciprofloxac 2019-0 Yes 500mg Take 1 Tab [facility] in (CIPRO) 3-15 by mouth [facility] 500 MG 00:00: two times of tablet 00 daily. Medicin e ciprofloxac 2019-0 Yes 500mg Take 1 Tab [facility] in (CIPRO) 3-15 by mouth [facility] 500 MG 00:00: two times of tablet 00 daily. Medicin e ciprofloxac 2019-0 Yes 500mg Take 1 Tab [facility] in (CIPRO) 3-15 by mouth [facility] 500 MG 00:00: two times of tablet 00 daily. Medicin e ciprofloxac 2019-0 Yes 500mg Take 1 Tab [facility] in (CIPRO) 3-15 by mouth [facility] 500 MG 00:00: two times of tablet 00 daily. Medicin e ciprofloxac 2019-0 Yes 500mg Take 1 Tab [facility] in (CIPRO) 3-15 by mouth [facility] 500 MG 00:00: two times of tablet 00 daily. Medicin e ciprofloxac 2019-0 Yes 500mg Take 1 Tab [facility] in (CIPRO) 3-15 by mouth [facility] 500 MG 00:00: two times of tablet 00 daily. Medicin e ciprofloxac 2019-0 Yes 500mg Take 1 Tab [facility] (CIPRO) 3-15 by mouth [facility] 500 MG 00:00: two times of tablet 00 daily. Medicin e ciprofloxac 2019-0 Yes 500mg Take 1 Tab [facility] (CIPRO) 3-15 by mouth [facility] 500 MG 00:00: two times of tablet 00 daily. Medicin e ciprofloxac 2019-0 Yes 500mg Take 1 Tab [facility] in (CIPRO) 3-15 by mouth [facility] 500 MG 00:00: two times of tablet 00 daily. Medicin e ciprofloxac 2019-0 Yes 500mg Take 1 Tab [facility] (CIPRO) 3-15 by mouth [facility] 500 MG 00:00: two times of tablet 00 daily. Medicin e pioglitazon 2019-0 2020- No 1{tbl} Take [address] e-metFORMIN 3-05 09-11 tablet by [facility] - (ACTOPLUS 00:00: 00:00 mouth Medica l MET) 15 00 :00 daily with Ce nter mg per breakfast. tablet pioglitazon 2019- No 1{tbl} Take [address] e-metFORMIN 10-05 tablet by [facility] - (ACTOPLUS 00:00: 00:00 mouth Medica l MET) 15 00 :00 daily with Ce nter mg per breakfast. tablet pioglitazon 2019- No 1{tbl} Take [address] e-metFORMIN 10-05 tablet by [facility] - (ACTOPLUS 00:00: 00:00 mouth Medica l MET) 15 00 :00 daily with Ce nter mg [...] (two) times daily with breakfast and dinner. aspirin EC 2017-08 Yes 325mg Take 325 [facility] 325 MG 1-21 mg by [facility] tablet 00:00: mouth of 00 daily. Medicin e aspirin EC 2017-08 Yes 325mg Take 325 [facility] 325 MG 1-21 mg by [facility] tablet 00:00: mouth of 00 daily. Medicin e aspirin EC 2017-08 Yes 325mg Take 325 [facility] 325 MG 1-21 mg by [facility] tablet 00:00: mouth of 00 daily. Medicin e aspirin EC 2017-08 Yes 325mg Take 325 [facility] 325 MG 1-21 mg by [facility] tablet 00:00: mouth of 00 daily. Medicin e aspirin EC 2017-08 Yes 325mg Take 325 [facility] 325 MG 1-21 mg by [facility] tablet 00:00: mouth of 00 daily. Medicin e aspirin EC 2017-08 Yes 325mg Take 325 [facility] 325 MG 1-21 mg by [facility] tablet 00:00: mouth of 00 daily. Medicin e aspirin EC 2017-08 Yes 325mg Take 325 [facility] 325 MG 1-21 mg by [facility] tablet 00:00: mouth of 00 daily. Medicin e aspirin EC 2017-08 Yes 325mg Take 325 [facility] 325 MG 1-21 mg by [facility] tablet 00:00: mouth of 00 daily. Medicin e aspirin EC 2017-08 Yes 325mg Take 325 [facility] 325 MG 1-21 mg by [facility] tablet 00:00: mouth of 00 daily. Medicin e aspirin EC 2017-08 Yes 325mg Take 325 [facility] 325 MG 1-21 mg by [facility] tablet 00:00: mouth of 00 daily. Medicin e aspirin EC 2017-08 Yes 325mg Take 325 [facility] 325 MG 1-21 mg by [facility] tablet 00:00: mouth of 00 daily. Medicin e aspirin EC 2017-08 Yes 325mg Take 325 [facility] 325 MG 1-21 mg by [facility] tablet 00:00: mouth of 00 daily. Medicin e aspirin EC 2017-08 Yes 325mg Take 325 [facility] 325 MG 1-21 mg by [facility] tablet 00:00: mouth of 00 daily. Medicin e aspirin EC 2017-08 Yes 325mg Take 325 [facility] 325 MG 1-21 mg by [facility] tablet 00:00: mouth of 00 daily. Medicin e aspirin EC 2017-08 Yes 325mg Take 325 [facility] 325 MG 1-21 mg by [facility] tablet 00:00: mouth of 00 daily. Medicin e aspirin EC 2017-08 Yes 325mg Take 325 [facility] 325 MG 1-21 mg by [facility] tablet 00:00: mouth of 00 daily. Medicin e aspirin EC 2017-08 Yes 325mg Take 325 [facility] 325 MG 1-21 mg by [facility] tablet 00:00: mouth of 00 daily. Medicin e aspirin EC 2017-08 Yes 325mg Take 325 [facility] 325 MG 1-21 mg by [facility] tablet 00:00: mouth of 00 daily. Medicin e aspirin EC 2017-08 Yes 325mg Take 325 [facility] 325 MG 1-21 mg by [facility] tablet 00:00: mouth of 00 daily. Medicin e aspirin EC Yes 325mg Take 325 [facility] 325 MG 1-21 mg by [facility] tablet 00:00: mouth of 00 daily. Medicin e Sitagliptin 2018- Yes 50mg Take 50 mg [facility] Phosphate 1-20 by mouth. [facility] (AUGUVIA) 00:00: of 50 MG TABS 00 Medicin e Sitagliptin 2017-08 Yes 50mg Take 50 mg [facility] Phosphate 1-20 by mouth. [facility] (AUGUVIA) 00:00: of 50 MG TABS 00 Medicin e Sitagliptin 2017- Yes 50mg Take 50 mg [facility] Phosphate 1-20 by mouth. [facility] (AUGUVIA) 00:00: of 50 MG TABS 00 Medicin e Sitagliptin 2017-08 Yes 50mg Take 50 mg [facility] Phosphate 1-20 by mouth. [facility] (AUGUVIA) 00:00: of 50 MG TABS 00 Medicin e Sitagliptin 2017-08 Yes 50mg Take 50 mg [facility] Phosphate 1-20 by mouth. [facility] (AUGUVIA) 00:00: of 50 MG TABS 00 Medicin e Sitagliptin 2017-08 Yes 50mg Take 50 mg [facility] Phosphate 1-20 by mouth. [facility] (AUGUVIA) 00:00: of 50 MG TABS 00 Medicin e Sitagliptin 2017- Yes 50mg Take 50 mg [facility] Phosphate 1-20 by mouth. [facility] (AUGUVIA) 00:00: of 50 MG TABS 00 Medicin e Sitagliptin 2017- Yes 50mg Take 50 mg [facility] Phosphate 1-20 by mouth. [facility] (AUGUVIA) 00:00: of 50 MG TABS 00 Medicin e Sitagliptin 2018- Yes 50mg Take 50 mg [facility] Phosphate 1-20 by mouth. [facility] (AUGUVIA) 00:00: of 50 MG TABS 00 Medicin e Sitagliptin 2017- Yes 50mg Take 50 mg [facility] Phosphate 1-20 by mouth. [facility] (AUGUVIA) 00:00: of 50 MG TABS 00 Medicin e Sitagliptin 2017- Yes 50mg Take 50 mg [facility] Phosphate 1-20 by mouth. [facility] (AUGUVIA) 00:00: of 50 MG TABS 00 Medicin e Sitagliptin 2017- Yes 50mg Take 50 mg [facility] Phosphate 1-20 by mouth. [facility] (JANUVIA) 00:00: of 50 MG TABS 00 Medicin e Sitagliptin 2018- Yes 50mg Take 50 mg [facility] Phosphate 1-20 by mouth. [facility] (IA) 00:00: of 50 MG TABS 00 Medicin e Sitagliptin 2018- Yes 50mg Take 50 mg [facility] Phosphate 1-20 by mouth. [facility] (IA) 00:00: of 50 MG TABS 00 Medicin e Sitagliptin 2018- Yes 50mg Take 50 mg [facility] Phosphate 1-20 by mouth. [facility] (IA) 00:00: of 50 MG TABS 00 Medicin e Sitagliptin 2018- Yes 50mg Take 50 mg [facility] Phosphate 1-20 by mouth. [facility] (IA) 00:00: of 50 MG TABS 00 Medicin e Sitagliptin 2017- Yes 50mg Take 50 mg [facility] Phosphate 1-20 by mouth. [facility] (IA) 00:00: of 50 MG TABS 00 Medicin e Sitagliptin 2017- Yes 50mg Take 50 mg [facility] Phosphate 1-20 by mouth. [facility] ge (IA) 00:00: of 50 MG TABS 00 Medicin e Sitagliptin 2017-08 Yes 50mg Take 50 mg [facility] Phosphate 1-20 by mouth. [facility] (IA) 00:00: of 50 MG TABS 00 Medicin e Sitagliptin 2017- Yes 50mg Take 50 mg [facility] Phosphate 1-20 by mouth. [facility]le [facility] (IA) 00:00: of 50 MG TABS 00 Medicin e JANUVIA 50 2017-08 Yes 50mg QD Take [address] mg tablet 1-20 by [facility]: daily. [address] JANUVIA 50 2017-08 Yes 50mg QD Take [address] mg tablet 1-20 by mouth [facility]: daily. [address] JANUVIA 50 2017-08 Yes 50mg QD Take [address] mg tablet 1-20 by mouth [facility]: daily. [address] pantoprazol 2018-0 Yes 40mg Take 40 mg [facility] 9-19 by mouth. [facility] (PROTONIX) 00:00: of 40 MG 00 Medicin tablet e pantoprazol 2017-0 Yes 40mg Take 40 mg [facility] 9-19 by mouth. [facility] (PROTONIX) 00:00: of 40 MG 00 Medicin tablet e pantoprazol 2018-0 Yes 40mg Take 40 mg [facility] 9-19 by mouth. [facility] (PROTONIX) 00:00: of 40 MG 00 Medicin tablet e pantoprazol 2018-0 Yes 40mg Take 40 mg [facility] e 9-19 by mouth. [facility] (PROTONIX) 00:00: of 40 MG 00 Medicin tablet e pantoprazol 2018-0 Yes 40mg Take 40 mg [facility] 9-19 by mouth. [facility] (PROTONIX) 00:00: of 40 MG 00 Medicin tablet e pantoprazol 2018-0 Yes 40mg Take 40 mg [facility] e 9-19 by mouth. [facility] (PROTONIX) 00:00: of 40 MG 00 Medicin tablet e pantoprazol 2018-0 Yes 40mg Take 40 mg [facility] 9-19 by mouth. [facility] (PROTONIX) 00:00: of 40 MG 00 Medicin tablet e pantoprazol 2018-0 Yes 40mg Take 40 mg [facility] e 9-19 by mouth. [facility] (PROTONIX) 00:00: of 40 MG 00 Medicin tablet e pantoprazol 2018-0 Yes 40mg Take 40 mg [facility] e 9-19 by mouth. [facility] (PROTONIX) 00:00: of 40 MG 00 Medicin tablet e pantoprazol 2018-0 Yes 40mg Take 40 mg [facility] 9-19 by mouth. [facility] (PROTONIX) 00:00: of 40 MG 00 Medicin tablet e pantoprazol 2018-0 Yes 40mg Take 40 mg [facility] e 9-19 by mouth. [facility] (PROTONIX) 00:00: of 40 MG 00 Medicin tablet e pantoprazol 2018-0 Yes 40mg Take 40 mg [facility] e 9-19 by mouth. [facility] (PROTONIX) 00:00: of 40 MG 00 Medicin tablet e pantoprazol 2018-0 Yes 40mg Take 40 mg [facility] e 9-19 by mouth. [facility] (PROTONIX) 00:00: of 40 MG 00 Medicin tablet e pantoprazol 2018-0 Yes 40mg Take 40 mg [facility] e 9-19 by mouth. [facility] (PROTONIX) 00:00: of 40 MG 00 Medicin tablet e pantoprazol 2018-0 Yes 40mg Take 40 mg [facility] e 9-19 by mouth. [facility] (PROTONIX) 00:00: of 40 MG 00 Medicin tablet e pantoprazol 2018-0 Yes 40mg Take 40 mg [facility] e 9-19 by mouth. [facility] (PROTONIX) 00:00: of 40 MG 00 Medicin tablet e pantoprazol 2018-0 Yes 40mg Take 40 mg [facility] 9-19 by mouth. [facility] (PROTONIX) 00:00: of 40 MG 00 Medicin tablet e pantoprazol 2018-0 Yes 40mg Take 40 mg [facility] e 9-19 by mouth. [facility] (PROTONIX) 00:00: of 40 MG 00 Medicin tablet e pantoprazol 2018-0 Yes 40mg Take 40 mg [facility] e 9-19 by mouth. [facility] (PROTONIX) 00:00: of 40 MG 00 Medicin tablet e pantoprazol 2018-0 Yes 40mg Take 40 mg [facility] e 9-19 by mouth. [facility] (PROTONIX) 00:00: of 40 MG 00 Medicin tablet e pantoprazol 2018-0 Yes 40mg QD Take [address] [facility] [facility] 9-19 by mouth [facility] (PROTONIX) 00:00: daily. Medic al 40 MG 00 Center tablet pantoprazol 2018-0 Yes 40mg QD Take [address] [facility] [facility] 9-19 by mouth [facility] (PROTONIX) 00:00: daily. Medic al 40 MG 00 Center tablet pantoprazol 2018-0 Yes 40mg QD Take [address] [facility] 9-19 by mouth [facility] (PROTONIX) 00:00: daily. Medic al 40 MG 00 Center tablet amLODIPine 2018-0 Yes 10mg QD Take [address] (NORVASC) 9-06 by mouth [facility] - 10 MG 00:00: daily. Medical tablet 00 [facility] amLODIPine 2018-0 Yes 10mg QD Take [address] (NORVASC) 9-06 by mouth [facility] - 10 MG 00:00: daily. Medical tablet 00 [facility] amLODIPine 2018-0 Yes 10mg QD Take [address] (NORVASC) 9-06 by mouth [facility] - 10 MG 00:00: daily. Medical tablet 00 [facility] Immunizations Ordered Immunization Filled Immunization Date Status Commen ts Source Name Name Covid-19 Vaccine 2020-11-[address] [facility] ([facility] [employer] Covid-19 Vaccine 2020-11-[address] [facility] (Pf) 00:[facility] ([employer]) Covid-19 Vaccine 2020-11-[address] [facility] (Pf) 00:00:00 [facility] (Pfizer/[employer]) Covid-19 Vaccine 2020-10-[address] [facility] (Pf) 00:00:00 [facility] ([facility]/[employer]) Covid-19 Vaccine 2020-10-[address] [facility] - [facility] (Pf) 00:00:00 [facility] (Pfizer/[employer]) Covid-19 Vaccine 2020-10-[address] [facility] - [facility] (Pf) 00:00:00 [facility] ([facility]/[employer]) Vital Signs Vital Name Observation Time Observation Value Comments Source Systolic blood 2021-07-19 16:33:00 147 mm[Hg] [facility] pressure of Medicine Diastolic blood 2021-07-19 16:33:00 92 mm[Hg] [facility] pressure of Medicine Heart rate 2021-07-19 16:33:00 96 /min [facility] Body temperature 2021-07-19 16:33:00 36.44 [facility] Systolic blood 2021-05-24 18:02:00 145 mm[Hg] [facility] pressure of Medicine Diastolic blood 2021-05-24 18:02:00 85 mm[Hg] [facility] pressure of Medicine Heart rate 2021-05-24 18:02:00 69 /min [facility] Body temperature 2021-05-24 18:02:00 36.83 [facility] Body height 2021-05-24 18:02:00 172.7 cm [facility] Systolic blood 2021-04-25 15:59:00 144 mm[Hg] [facility] pressure of Medicine Diastolic blood 2021-04-25 15:59:00 91 mm[Hg] [facility] pressure of Medicine Heart rate 2021-04-25 15:59:00 81 /min [facility] of Medicine Systolic blood 2021-03-26 16:31:00 106 mm[Hg] [facility] [employer] pressure [facility] Diastolic blood 2021-03-26 16:31:00 74 mm[Hg] [facility] [employer] pressure of Medicine Heart rate 2021-03-26 16:31:00 79 /min [facility] of [facility] Body temperature 2021-03-26 16:31:00 37.11 [facility] Body height 2021-03-26 16:31:00 172.7 cm [facility] Systolic blood 2021-03-26 16:31:00 106 mm[Hg] [facility] [employer] pressure of Medicine Diastolic blood 2021-03-26 16:31:00 74 mm[Hg] [facility] pressure [facility] Heart rate 2021-03-26 16:31:00 79 /min [facility] Body temperature 2021-03-26 16:31:00 37.11 [facility] Body height 2021-03-26 16:31:00 172.7 cm [facility] Systolic blood 2021-01-22 16:47:00 127 mm[Hg] [facility] pressure of Medicine Diastolic blood 2021-01-22 16:47:00 74 mm[Hg] [facility] pressure of [facility] Heart rate 2021-01-22 16:47:00 68 /min [facility] Body temperature 2021-01-22 16:47:00 36.83 [facility] Body height 2021-01-22 16:47:00 172.7 cm [facility] Systolic blood 2021-01-22 16:47:00 127 mm[Hg] [facility] pressure of Medicine Diastolic blood 2021-01-22 16:47:00 74 mm[Hg] [facility] pressure of [facility] Heart rate 2021-01-22 16:47:00 68 /min [facility] Body temperature 2021-01-22 16:47:00 36.83 [facility] Body height 2021-01-22 16:47:00 172.7 cm [facility] Systolic blood 2020-11-27 15:13:00 125 mm[Hg] [facility] [employer] pressure of [facility] Diastolic blood 2020-11-27 15:13:00 83 mm[Hg] [facility] [employer] pressure of Medicine Heart rate 2020-11-27 15:13:00 70 /min [facility] Body temperature 2020-11-27 15:13:00 36.44 [facility] Body height 2020-11-27 15:13:00 172.7 cm [facility] Systolic blood 2020-11-27 15:13:00 125 mm[Hg] [facility] pressure of Medicine Diastolic blood 2020-11-27 15:13:00 83 mm[Hg] [facility] pressure of Medicine Heart rate 2020-11-27 15:13:00 70 /min [facility] ollege of Medicine Body temperature 2020-11-27 15:13:00 36.44 [facility] Body height 2020-11-27 15:13:00 172.7 cm [facility] ollege of [facility] Systolic blood 2020-10-02 15:57:00 131 mm[Hg] [facility] pressure of Medicine Diastolic blood 2020-10-02 15:57:00 89 mm[Hg] [facility] pressure of Medicine Heart rate 2020-10-02 15:57:00 82 /min [facility] of Medicine Body temperature 2020-10-02 15:57:00 36.39 [facility] Body height 2020-10-02 15:57:00 172.7 cm [facility] Body weight 2020-10-02 15:57:00 104.327 kg [facility] of [facility] BMI 2020-10-02 15:57:00 34.97 kg/m2 [facility] Systolic blood 2020-10-02 15:57:00 131 mm[Hg] [facility] pressure of Medicine Diastolic blood 2020-10-02 15:57:00 89 mm[Hg] [facility] pressure of Medicine Heart rate 2020-10-02 15:57:00 82 /min [facility] Body temperature 2020-10-02 15:57:00 36.39 [facility] Body height 2020-10-02 15:57:00 172.7 cm [facility] Body weight 2020-10-02 15:57:00 104.327 kg [facility] BMI 2020-10-02 15:57:00 34.97 kg/m2 [facility] Systolic blood 2020-07-24 15:47:00 125 mm[Hg] [facility] [employer] pressure [facility] Diastolic blood 2020-07-24 15:47:00 78 mm[Hg] [facility] [facility] [employer] pressure of Medicine Heart rate 2020-07-24 15:47:00 75 /min [facility] Body temperature 2020-07-24 15:47:00 36.89 [facility] or [facility] of Medicine Body height 2020-07-24 15:47:00 172.7 cm [facility] Systolic blood 2020-07-24 15:47:00 125 mm[Hg] [facility] pressure of Medicine Diastolic blood 2020-07-24 15:47:00 78 mm[Hg] [facility] [employer] pressure of Medicine Heart rate 2020-07-24 15:47:00 75 /min [facility] Body temperature 2020-07-24 15:47:00 36.89 [facility] or [facility] of Medicine Body height 2020-07-24 15:47:00 172.7 cm [facility] Systolic blood 2020-05-25 17:23:00 119 mm[Hg] [facility] pressure of Medicine Diastolic blood 2020-05-25 17:23:00 74 mm[Hg] [facility] Heart rate 2020-05-25 17:23:00 64 /min [facility] Body temperature 2020-05-25 17:23:00 36.83 [facility] or [facility] Body height 2020-05-25 17:23:00 172.7 cm [facility] Systolic blood 2020-05-25 17:23:00 119 mm[Hg] [facility] pressure of Medicine Diastolic blood 2020-05-25 17:23:00 74 mm[Hg] [employer] pressure of Medicine Heart rate 2020-05-25 17:23:00 64 /min [facility] Body temperature 2020-05-25 17:23:00 36.83 [facility] or [facility] Body height 2020-05-25 17:23:00 172.7 cm [facility] HEIGHT 2020-05-09 00:00:00 172.7 cm WEIGHT 2020-05-09 00:00:00 95.482 kg HEIGHT 2020-05-09 00:00:00 172.7 cm WEIGHT 2020-05-09 00:00:00 95.482 kg Systolic blood 2020-04-27 14:59:00 103 mm[Hg] [facility] pressure of Medicine Diastolic blood 2020-04-27 14:59:00 53 mm[Hg] [facility] pressure of Medicine Heart rate 2020-04-27 14:59:00 74 /min [facility] Body temperature 2020-04-27 14:59:00 36.83 [facility] Body height 2020-04-27 14:59:00 172.7 cm [facility] Systolic blood 2020-04-27 14:59:00 103 mm[Hg] [facility] pressure of Medicine Diastolic blood 2020-04-27 14:59:00 53 mm[Hg] [facility] pressure of Medicine Heart rate 2020-04-27 14:59:00 74 /min [facility] Body temperature 2020-04-27 14:59:00 36.83 [facility] Body height 2020-04-27 14:59:00 172.7 cm [facility] HEIGHT 2020-04-20 00:00:00 172.7 cm WEIGHT 2020-04-20 00:00:00 104.327 kg HEIGHT 2020-04-20 00:00:00 172.7 cm WEIGHT 2020-04-20 00:00:00 104.327 kg Systolic blood 2020-03-23 14:18:00 133 mm[Hg] [facility] pressure of Medicine Diastolic blood 2020-03-23 14:18:00 87 mm[Hg] [facility] pressure of Medicine Heart rate 2020-03-23 14:18:00 81 /min [facility] Body temperature 2020-03-23 14:18:00 36.89 [facility] or [facility] of Medicine Body height 2020-03-23 14:18:00 172.7 cm [facility] Systolic blood 2020-03-23 14:18:00 133 mm[Hg] [employer] [facility] Diastolic blood 2020-03-23 14:18:00 87 mm[Hg] [employer] pressure of Medicine Heart rate 2020-03-23 14:18:00 81 /min [facility] Body temperature 2020-03-23 14:18:00 36.89 [facility] or [facility] of Medicine Body height 2020-03-23 14:18:00 172.7 cm [facility] Systolic blood 2020-02-10 15:06:00 124 mm[Hg] [facility] [employer] Diastolic blood 2020-02-10 15:06:00 85 mm[Hg] [employer] Heart rate 2020-02-10 15:06:00 69 /min [facility] [employer] Body temperature 2020-02-10 15:06:00 36.72 [facility] or [place] [facility] Body height 2020-02-10 15:06:00 172.7 cm [facility] [employer] Systolic blood 2020-02-10 15:06:00 124 mm[Hg] [facility] [employer] Diastolic blood 2020-02-10 15:06:00 85 mm[Hg] [employer] Heart rate 2020-02-10 15:06:00 69 /min [facility] [employer] Body temperature 2020-02-10 15:06:00 36.72 [facility] or [place] [facility] Body height 2020-02-10 15:06:00 172.7 cm [facility] [employer] Systolic blood 2019-12-02 14:56:00 125 mm[Hg] [facility] [employer] Diastolic blood 2019-12-02 14:56:00 85 mm[Hg] [employer] Heart rate 2019-12-02 14:56:00 72 /min [facility] [employer] Body temperature 2019-12-02 14:56:00 36.83 [facility] or [place] [facility] [employer] Body height 2019-12-02 14:56:00 172.7 cm [facility] [employer] Systolic blood 2019-12-02 14:56:00 125 mm[Hg] [facility] [employer] Diastolic blood 2019-12-02 14:56:00 85 mm[Hg] [employer] Heart rate 2019-12-02 14:56:00 72 /min [facility] [employer] Body temperature 2019-12-02 14:56:00 36.83 [facility] or [place] [facility] Body height 2019-12-02 14:56:00 172.7 cm [facility] [employer] Systolic blood 2019-10-28 14:04:00 128 mm[Hg] [facility] [employer] Diastolic blood 2019-10-28 14:04:00 82 mm[Hg] [employer] [employer] Heart rate 2019-10-28 14:04:00 82 /min [facility] [employer] Body temperature 2019-10-28 14:04:00 36.67 [facility] or [place] [employer] Body height 2019-10-28 14:04:00 172.7 cm [facility] [employer] Systolic blood 2019-10-28 14:04:00 128 mm[Hg] [facility] [employer] Diastolic blood 2019-10-28 14:04:00 82 mm[Hg] [employer] Heart rate 2019-10-28 14:04:00 82 /min [facility] [employer] Body temperature 2019-10-28 14:04:00 36.67 [facility] or [place] Body height 2019-10-28 14:04:00 172.7 cm [facility] [employer] Systolic blood 2019-10-07 17:12:00 124 mm[Hg] [facility] [employer] Diastolic blood 2019-10-07 17:12:00 87 mm[Hg] [employer] Heart rate 2019-10-07 17:12:00 87 /min [facility] [employer] Body temperature 2019-10-07 17:12:00 36.72 [facility] or [place] [facility] [employer] Body height 2019-10-07 17:12:00 172.7 cm [facility] [employer] Systolic blood 2019-10-07 17:12:00 124 mm[Hg] [facility] [employer] Diastolic blood 2019-10-07 17:12:00 87 mm[Hg] [employer] Heart rate 2019-10-07 17:12:00 87 /min [facility] [employer] Body temperature 2019-10-07 17:12:00 36.72 [facility] or [employer] Body height 2019-10-07 17:12:00 172.7 cm [facility] [employer] Systolic blood 2019-09-09 15:46:00 126 mm[Hg] [facility] pressure [facility] Medicine Diastolic blood 2019-09-09 15:46:00 84 mm[Hg] [facility] [place] [facility] [employer] Heart rate 2019-09-09 15:46:00 91 /min [facility] [employer] Body temperature 2019-09-09 15:46:00 36.94 [facility] or [facility] Body height 2019-09-09 15:46:00 172.7 cm [facility] [employer] Body weight 2019-09-09 15:46:00 99.791 kg [facility] [employer] BMI 2019-09-09 15:46:00 33.45 kg/m2 [facility] [employer] Systolic blood 2019-09-09 15:46:00 126 mm[Hg] [facility] Diastolic blood 2019-09-09 15:46:00 84 mm[Hg] [facility] [place] [facility] [employer] Heart rate 2019-09-09 15:46:00 91 /min [facility] [employer] Body temperature 2019-09-09 15:46:00 36.94 [facility] or [facility] Body height 2019-09-09 15:46:00 172.7 cm [facility] [employer] Body weight 2019-09-09 15:46:00 99.791 kg [facility] [employer] [employer] BMI 2019-09-09 15:46:00 33.45 kg/m2 [facility] [employer] Systolic blood 2019-09-02 18:36:00 129 mm[Hg] [facility] Diastolic blood 2019-09-02 18:36:00 80 mm[Hg] [facility] [place] [facility] [employer] Heart rate 2019-09-02 18:36:00 96 /min [facility] [employer] Body temperature 2019-09-02 18:36:00 36.39 [facility] or [facility] Medicine Body height 2019-09-02 18:36:00 172.7 cm [facility] [employer] Body weight 2019-09-02 18:36:00 99.791 kg wheelchair [facility] [employer] BMI 2019-09-02 18:36:00 33.45 kg/m2 [facility] [employer] Systolic blood 2019-09-02 18:36:00 129 mm[Hg] [facility] [employer] Diastolic blood 2019-09-02 18:36:00 80 mm[Hg] [employer] Heart rate 2019-09-02 18:36:00 96 /min [facility] [employer] Body temperature 2019-09-02 18:36:00 36.39 [facility] or [place] Body height 2019-09-02 18:36:00 172.7 cm [facility] [employer] Body weight 2019-09-02 18:36:00 99.791 kg wheelchair [facility] [employer] BMI 2019-09-02 18:36:00 33.45 kg/m2 [facility] [employer] Systolic blood 2019-04-26 14:56:00 127 mm[Hg] [facility] [employer] Diastolic blood 2019-04-26 14:56:00 86 mm[Hg] [employer] Heart rate 2019-04-26 14:56:00 107 /min [facility] [employer] Body temperature 2019-04-26 14:56:00 36.83 [facility] or [place] [facility] [employer] Body height 2019-04-26 14:56:00 172.7 cm [facility] [employer] Body weight 2019-04-26 14:56:00 99.791 kg [facility] [employer] BMI 2019-04-26 14:56:00 33.45 kg/m2 [facility] [employer] [facility] [employer] Systolic blood 2019-04-26 14:56:00 127 mm[Hg] [facility] [employer] Diastolic blood 2019-04-26 14:56:00 86 mm[Hg] [employer] Heart rate 2019-04-26 14:56:00 107 /min [facility] [employer] Body temperature 2019-04-26 14:56:00 36.83 [facility] or [employer] Body height 2019-04-26 14:56:00 172.7 cm [facility] [employer] Body weight 2019-04-26 14:56:00 99.791 kg [facility] [employer] [employer] BMI 2019-04-26 14:56:00 33.45 kg/m2 [facility] Systolic blood 2020-05-10 16:00:00 113 mm[Hg] [facility] Diastolic blood 2020-05-10 16:00:00 66 mm[Hg] [facility] Heart rate 2020-05-10 16:00:00 77 /min [facility] Body temperature 2020-05-10 16:00:00 35.61 [facility] Respiratory rate 2020-05-10 16:00:00 14 /min [facility] Oxygen saturation in 2020-05-10 16:00:00 98 /min [facility] Arterial blood by Medical Ce nter Pulse oximetry Body weight 2020-05-10 04:41:00 95.482 kg [facility] BMI 2020-05-10 04:41:00 32.01 kg/m2 [facility] Body height 2020-05-09 20:00:00 172.7 cm [facility] Procedures Procedure Date / Time Performing Clinician Source Performed COMPREHENSIVE METABOLIC 2021-07-19 17:23:00 Victoria Unger [facility] PANEL Medicine MAGNESIUM 2021-07-19 17:23:00 Victoria Unger [facility] CBC W/AUTO DIFF WITH 2021-07-19 17:23:00 Victoria Unger [facility] PLATELETS [facility] COMPREHENSIVE METABOLIC 2021-05-24 18:44:00 Victoria Unger [facility] CBC W/AUTO DIFF WITH 2021-05-24 18:44:00 Victoria Unger [facility] PLATELETS Medicine CT CHEST WITH IV CONTRAST 2021-04-11 10:13:00 Claude Bermudez [facility] CT ABDOMEN/PELVIS WITH & 2021-04-11 10:13:[address] [facility] - WITHOUT IV CONTRAST Medical [facility] CT CHEST WITH IV CONTRAST 2021-02-06 12:05:00 Claude Bermudez danilo [facility] CT ABDOMEN/PELVIS WITH IV 2021-02-06 12:05:00 Yen, [facility] CT ABDOMEN/PELVIS WITH IV 2020-11-19 11:25:00 Yen, [facility] CT CHEST WITH IV CONTRAST 2020-11-19 11:25:00 Yen, [facility] POCT-CREATININE 2020-11-19 10:44:00 Yen, [facility] CT ABDOMEN/PELVIS WITH IV 2020-07-12 11:44:00 Yen, [facility] CT CHEST WITH IV CONTRAST 2020-07-12 11:44:00 Yen, [facility] POCT-CREATININE 2020-07-12 11:07:00 Yen, [facility] CT BIOPSY ABDOMEN 2020-05-10 12:25:00 Redding, Melinda Amor [facility] TISSUE EXAM 2020-05-10 11:54:00 Redding, Melinda Amor [facility] SARS-COV2/RT-PCR ([facility] & 2020-05-10 04:37:00 Redding, Melinda Gerber [facility] REF [facility] CBC (HEMOGRAM ONLY) 2020-05-10 04:01:00 Redding, Melinda Amor [facility] PROTHROMBIN TIME/INR 2020-05-10 04:01:00 Redding, Melinda Amor [facility] POCT-GLUCOSE METER 2020-05-09 23:10:00 Yen, [facility] APTT 2020-05-09 10:22:00 Lo Carson [facility] CBC W/PLT COUNT & AUTO 2020-05-09 10:22:00 Lo Carson [facility] PROTHROMBIN TIME/INR 2020-05-09 10:22:00 Lo Carson [facility] CBC W/PLT COUNT & AUTO 2020-04-20 10:17:[address] [facility] PROTHROMBIN TIME/INR 2020-04-20 10:17:00 Lo Carson [facility] APTT 2020-04-20 10:17:00 Lo Carson [facility] CBC W/PLT COUNT & AUTO 2020-04-13 11:13:00 Lyudmila Macario [facility] PROTHROMBIN TIME/INR 2020-04-13 11:08:00 Renaldo [facility] APTT 2020-04-13 11:08:00 [facility] ACUTE HEPATITIS PROFILE 2019-09-09 15:10:00 Claude Bermudez [facility] HIV AB/AG 4TH GEN W RFLX 2019-09-09 15:10:00 Claude Bermudez [facility] Plan of Care Planned Activity Planned Date Details Comments Source Future Scheduled 2021-07-19 CT CHEST ABDOMEN 1 Occurrences [facility] Test 10:46:15 PELVIS W CONTRAST starting of Medicin e [code = 71278-5] 07/19/2021 until 07/19/2022 Future Scheduled 2021-07-19 Screening for [facility] Test 10:33:46 malignant neoplasm of Medici ne of colon (procedure) [code = 613633021] Future Scheduled 2021-07-19 Pneumococcal [facility] Test 10:33:46 Combined (1 of 2 - of Medici ne PPSV23) [code = Pneumococcal Combined (1 of 2 - PPSV23)] Future Scheduled 2021-07-19 TETANUS SHOT (ADULT) [facility] Test 10:33:46 [code = TETANUS SHOT of Medi cine (ADULT)] Future Scheduled 2021-07-19 Diabetic foot [facility] Test 10:33:46 examination of Medicine (regime/therapy) [code = 776949821] Future Scheduled 2021-07-19 ANNUAL DIABETIC [facility] Test 10:33:46 RETINOPATHY of Medicine SCREENING [code = ANNUAL DIABETIC RETINOPATHY SCREENING] Future Scheduled 2021-07-19 BMI FOLLOW UP PLAN [employer] Test 10:33:46 [code = BMI FOLLOW of Medici ne UP PLAN] Future Scheduled 2021-07-19 ZOSTER VACCINE (1 of [employer] Test 10:33:46 2) [code = ZOSTER of Medicin e VACCINE (1 of 2)] Future Scheduled 2021-07-19 MEDICARE AWV [facility] Test 10:33:46 (Initial) [code = of Medicin e MEDICARE AWV (Initial)] Future Scheduled 2021-07-19 FLU VACCINE > 6 [facility] Test 10:33:46 MONTHS [code = FLU of Medici ne VACCINE > 6 MONTHS] Future Scheduled 2021-07-19 COVID-19 Vaccine (3 [employer] Test 10:33:46 - Booster for Pfizer of Medi cine series) [code = COVID-19 Vaccine (3 - Booster for Pfizer series)] Future Scheduled 2021-05-27 Screening for [facility] Test 08:42:59 malignant neoplasm of Medici ne of colon (procedure) [code = 239805329] Future Scheduled 2021-05-27 TETANUS SHOT (ADULT) [employer] Test 08:42:59 [code = TETANUS SHOT of Medi cine (ADULT)] Future Scheduled 2021-05-27 Diabetic foot [facility] Test 08:42:59 examination of Medicine (regime/therapy) [code = 164383640] Future Scheduled 2021-05-27 ANNUAL DIABETIC [facility] Test 08:42:59 RETINOPATHY of Medicine SCREENING [code = ANNUAL DIABETIC RETINOPATHY SCREENING] Future Scheduled 2021-05-27 BMI FOLLOW UP PLAN [employer] Test 08:42:59 [code = BMI FOLLOW of Medici ne UP PLAN] Future Scheduled 2021-05-27 ZOSTER VACCINE (1 of [employer] Test 08:42:59 2) [code = ZOSTER of Medicin e VACCINE (1 of 2)] Future Scheduled 2021-05-27 MEDICARE AWV [facility] Test 08:42:59 (Initial) [code = of Medicin e MEDICARE AWV (Initial)] Future Scheduled 2021-05-27 FLU VACCINE > 6 [facility] Test 08:42:59 MONTHS [code = FLU of Medici ne VACCINE > 6 MONTHS] Future Scheduled 2021-05-26 CT CHEST ABDOMEN Expected: [facility] Test 00:00:00 PELVIS W CONTRAST 05/26/2021, of Medicin e [code = 98102-5] Expires: 03/26/2022 Future Scheduled 2021-05-09 Screening for [facility] Test 10:57:40 malignant neoplasm of Medici ne of colon (procedure) [code = 610489467] Future Scheduled 2021-05-09 TETANUS SHOT (ADULT) [employer] Test 10:57:40 [code = TETANUS SHOT of Medi cine (ADULT)] Future Scheduled 2021-05-09 Diabetic foot [facility] Test 10:57:40 examination of Medicine (regime/therapy) [code = 084830019] Future Scheduled 2021-05-09 ANNUAL DIABETIC [facility] Test 10:57:40 RETINOPATHY of Medicine SCREENING [code = ANNUAL DIABETIC RETINOPATHY SCREENING] Future Scheduled 2021-05-09 BMI FOLLOW UP PLAN [facility] Test 10:57:40 [code = BMI FOLLOW of Medici ne UP PLAN] Future Scheduled 2021-05-09 ZOSTER VACCINE (1 of [facility] Test 10:57:40 2) [code = ZOSTER of Medicin e VACCINE (1 of 2)] Future Scheduled 2021-05-09 MEDICARE AWV [facility] Test 10:57:40 (Initial) [code = of Medicin e MEDICARE AWV (Initial)] Future Scheduled 2021-05-09 FLU VACCINE > 6 [facility] Test 10:57:40 MONTHS [code = FLU of Medici ne VACCINE > 6 MONTHS] Future Scheduled 2021-04-26 MS PUNCH BIOPSY SKIN Ordered: [employer] Test 15:36:05 SINGLE LESION [code 04/26/2021 of Medic ine = 08220] Future Scheduled 2021-04-26 MS PUNCH BIOPSY SKIN Ordered: [employer] Test 15:36:05 EA SEP/ADDITIONAL 04/26/2021 of Medicin e LESION [code = 98747] Future Scheduled 2021-04-26 MS PUNCH BIOPSY SKIN Ordered: [employer] Test 15:36:05 SINGLE LESION [code 04/26/2021 of Medic ine = 41615] Future Scheduled 2021-04-26 MS PUNCH BIOPSY SKIN Ordered: [employer] Test 15:36:05 EA SEP/ADDITIONAL 04/26/2021 of Medicin e LESION [code = 78512] Future Scheduled 2021-04-26 Screening for [facility] Test 09:43:48 malignant neoplasm of Medici ne of colon (procedure) [code = 871296213] Future Scheduled 2021-04-26 TETANUS SHOT (ADULT) [employer] Test 09:43:48 [code = TETANUS SHOT of Medi cine (ADULT)] Future Scheduled 2021-04-26 Diabetic foot [facility] Test 09:43:48 examination of Medicine (regime/therapy) [code = 596970008] Future Scheduled 2021-04-26 ANNUAL DIABETIC [facility] Test 09:43:48 RETINOPATHY of Medicine SCREENING [code = ANNUAL DIABETIC RETINOPATHY SCREENING] Future Scheduled 2021-04-26 BMI FOLLOW UP PLAN [employer] Test 09:43:48 [code = BMI FOLLOW of Medici ne UP PLAN] Future Scheduled 2021-04-26 ZOSTER VACCINE (1 of [employer] Test 09:43:48 2) [code = ZOSTER of Medicin e VACCINE (1 of 2)] Future Scheduled 2021-04-26 MEDICARE AWV [facility] Test 09:43:48 (Initial) [code = of Medicin e MEDICARE AWV (Initial)] Future Scheduled 2021-04-26 FLU VACCINE > 6 [facility] Test 09:43:48 MONTHS [code = FLU of Medici ne VACCINE > 6 MONTHS] Future Scheduled 2021-04-26 Screening for [facility] Test 09:43:48 malignant neoplasm of Medici ne of colon (procedure) [code = 985667872] Future Scheduled 2021-04-26 TETANUS SHOT (ADULT) [employer] Test 09:43:48 [code = TETANUS SHOT of Medi cine (ADULT)] Future Scheduled 2021-04-26 Diabetic foot [facility] Test 09:43:48 examination of Medicine (regime/therapy) [code = 842141058] Future Scheduled 2021-04-26 ANNUAL DIABETIC [facility] Test 09:43:48 RETINOPATHY of Medicine SCREENING [code = ANNUAL DIABETIC RETINOPATHY SCREENING] Future Scheduled 2021-04-26 BMI FOLLOW UP PLAN [employer] Test 09:43:48 [code = BMI FOLLOW of Medici ne UP PLAN] Future Scheduled 2021-04-26 ZOSTER VACCINE (1 of [employer] Test 09:43:48 2) [code = ZOSTER of Medicin e VACCINE (1 of 2)] Future Scheduled 2021-04-26 MEDICARE AWV [facility] Test 09:43:48 (Initial) [code = of Medicin e MEDICARE AWV (Initial)] Future Scheduled 2021-04-26 FLU VACCINE > 6 [facility] Test 09:43:48 MONTHS [code = FLU of Medici ne VACCINE > 6 MONTHS] Future Scheduled 2021-04-[address] [facility] - Test 00:00:00 (#1) [code = Medical Center INFLUENZA VACCINE (#1)] Future Scheduled 2021-04-[address] [facility] - Test 00:00:00 (#1) [code = Medical Center INFLUENZA VACCINE (#1)] Future Scheduled 2021-04-[address] [facility] - Test 00:00:00 (#1) [code = Medical Center INFLUENZA VACCINE (#1)] Future Scheduled 2021-03-26 TSH [code = 52011-3] Ordered: [employer] Test 17:55:25 03/26/2021 of Medicine Future Scheduled 2021-03-26 Screening for [facility] Test 10:13:45 malignant neoplasm of Medici ne of colon (procedure) [code = 955719239] Future Scheduled 2021-03-26 TETANUS SHOT (ADULT) [employer] Test 10:13:45 [code = TETANUS SHOT of Medi cine (ADULT)] Future Scheduled 2021-03-26 Diabetic foot [facility] Test 10:13:45 examination of Medicine (regime/therapy) [code = 022437499] Future Scheduled 2021-03-26 ANNUAL DIABETIC [facility] Test 10:13:45 RETINOPATHY of Medicine SCREENING [code = ANNUAL DIABETIC RETINOPATHY SCREENING] Future Scheduled 2021-03-26 BMI FOLLOW UP PLAN [employer] Test 10:13:45 [code = BMI FOLLOW of Medici ne UP PLAN] Future Scheduled 2021-03-26 ZOSTER VACCINE (1 of [employer] Test 10:13:45 2) [code = ZOSTER of Medicin e VACCINE (1 of 2)] Future Scheduled 2021-03-26 MEDICARE AWV [facility] Test 10:13:45 (Initial) [code = of Medicin e MEDICARE AWV (Initial)] Future Scheduled 2021-03-26 FLU VACCINE > 6 [facility] Test 10:13:45 MONTHS [code = FLU of Medici ne VACCINE > 6 MONTHS] Future Scheduled 2021-01-23 Screening for [facility] Test 08:29:09 malignant neoplasm of Medici ne of colon (procedure) [code = 364517722] Future Scheduled 2021-01-23 TETANUS SHOT (ADULT) [facility] Test 08:29:09 [code = TETANUS SHOT of Medi cine (ADULT)] Future Scheduled 2021-01-23 Diabetic foot [facility] Test 08:29:09 examination of Medicine (regime/therapy) [code = 619242440] Future Scheduled 2021-01-23 ANNUAL DIABETIC [facility] Test 08:29:09 RETINOPATHY of Medicine SCREENING [code = ANNUAL DIABETIC RETINOPATHY SCREENING] Future Scheduled 2021-01-23 BMI FOLLOW UP PLAN [facility] Test 08:29:09 [code = BMI FOLLOW of Medici ne UP PLAN] Future Scheduled 2021-01-23 ZOSTER VACCINE (1 of [facility] Test 08:29:09 2) [code = ZOSTER of Medicin e VACCINE (1 of 2)] Future Scheduled 2021-01-23 MEDICARE AWV [facility] Test 08:29:09 (Initial) [code = of Medicin e MEDICARE AWV (Initial)] Future Scheduled 2021-01-23 FLU VACCINE > 6 [facility] Test 08:29:09 MONTHS [code = FLU of Medici ne VACCINE > 6 MONTHS] Future Scheduled 2021-01-22 CT CHEST ABDOMEN 1 Occurrences [facility] Test 12:12:52 PELVIS W CONTRAST starting of Medicin e [code = 76196-0] 01/22/2021 until 01/22/2022 Future Scheduled 2020-08-[address] [facility] - Test 00:00:00 (12+) [code = Medical Center DEPRESSION SCREENING (12+)] Future Scheduled 2020-08-[address] [facility] - Test 00:00:00 (12+) [code = Medical Center DEPRESSION SCREENING (12+)] Future Scheduled 2020-08-[address] [facility] - Test 00:00:00 (12+) [code = Medical Center DEPRESSION SCREENING (12+)] Diagnostic Test 2020-03-30 CT NEEDLE BIOPSY Expected: [facility] Pending 00:00:00 LIVER [code = 99319] 03/30/2020, of Medi cine Expires: 03/23/2021 Diagnostic Test 2019-06-07 CT CHEST ABDOMEN Expected: [facility] Pending 00:00:00 PELVIS W CONTRAST 06/07/2019, of Medicin e [code = 27698-4] Expires: 04/26/2020 Future Scheduled 2016-01-[address] [facility] - Test 00:00:00 of 2) [code = Medical Center SHINGLES VACCINES (1 of 2)] Future Scheduled 2012 SHINGLES VACCINES ([address] [facility] - Test 00:00:00 of 2) [code = Medical Center SHINGLES VACCINES (1 of 2)] Future Scheduled 2012 SHINGLES VACCINES ([address] [facility] - Test 00:00:00 of 2) [code = Medical Center SHINGLES VACCINES (1 of 2)] Future Scheduled [address] [facility] Test 00:00:00 (procedure) [code = [facility] Center 29194543] Future Scheduled [address] [facility] Test 00:00:00 (procedure) [code = [facility] 77627501] Future Scheduled [address] [facility] Test 00:00:00 (procedure) [code = [facility] 01079351] Future Scheduled 1981 DTAP/TDAP/TD [facility] Test 00:00:00 VACCINES (1 - Tdap) Medical Center [code = DTAP/TDAP/TD VACCINES (1 - Tdap)] Future Scheduled 1981 DTAP/TDAP/TD [facility] Test 00:00:00 VACCINES (1 - Tdap) Medical Center [code = DTAP/TDAP/TD VACCINES (1 - Tdap)] Future Scheduled 1981 DTAP/TDAP/TD [facility] Test 00:00:00 VACCINES (1 - Tdap) Medical Center [code = DTAP/TDAP/TD VACCINES (1 - Tdap)] Future Scheduled [address] [facility] - Test 00:00:00 SCREENING [code = Medical Ce nter HEPATITIS C SCREENING] Future Scheduled [address] [facility] - Test 00:00:00 SCREENING [code = Medical Ce nter HEPATITIS C SCREENING] Future Scheduled [address] [facility] 00:00:00 SCREENING [code = Medical Ce nter HEPATITIS C SCREENING] Future Scheduled 1968 [facility]OCOCCAL [facility]ACCINE [facility] - Test 00:00:00 malignant neoplasm Medical C enter of colon (procedure) [code = 153903307] Future Scheduled [address] [facility] Test 00:00:00 malignant neoplasm Medical C enter of colon (procedure) [code = 480914167] Future Scheduled [address] [facility] Test 00:00:00 malignant neoplasm Medical C enter of colon (procedure) [code = 094579013] Future Scheduled TETANUS SHOT (ADULT) [employer] Test [code = TETANUS SHOT of Medi cine (ADULT)] Future Scheduled Diabetic foot [facility] Test examination of Medicine (regime/therapy) [code = 016808764] Future Scheduled ANNUAL DIABETIC [facility] [employer] Test RETINOPATHY of Medicine SCREENING [code = ANNUAL DIABETIC RETINOPATHY SCREENING] Future Scheduled BMI FOLLOW UP PLAN [employer] Test [code = BMI FOLLOW of Medici ne UP PLAN] Future Scheduled HEPATITIS C [facility] [employer] Test SCREENING [code = of Medicin e HEPATITIS C SCREENING] Future Scheduled HIV SCREENING [code [employer] Test = HIV SCREENING] of Medicine Future Scheduled MEDICARE AWV [facility] [employer] Test (Initial) [code = of Medicin e MEDICARE AWV (Initial)] Future Scheduled FLU VACCINE > 6 [facility]lege Test MONTHS [code = FLU of Medici ne VACCINE > 6 MONTHS] Future Scheduled HEPATITIS Ordered: [facility] [employer] Test PANEL,ACUTE W/REFLEX 09/09/2019 of Medi cine [code = NOCPT] Future Scheduled COLON CANCER [facility] [employer] Test SCREENING: of Medicine COLONOSCOPY [code = COLON CANCER SCREENING: COLONOSCOPY] Future Scheduled TETANUS SHOT (ADULT) [employer] Test [code = TETANUS SHOT of Medi cine (ADULT)] Future Scheduled Diabetic foot [facility] [employer] Test examination of Medicine (regime/therapy) [code = 843878809] Future Scheduled ANNUAL DIABETIC [facility] [employer] RETINOPATHY of Medicine SCREENING [code = ANNUAL DIABETIC RETINOPATHY SCREENING] Future Scheduled BMI FOLLOW UP PLAN [employer] Test [code = BMI FOLLOW of Medici ne UP PLAN] Future Scheduled MEDICARE AWV [facility] [employer] Test (Initial) [code = of Medicin e MEDICARE AWV (Initial)] Future Scheduled FLU VACCINE > 6 [facility] [employer] Test MONTHS [code = FLU of Medici ne VACCINE > 6 MONTHS] Future Scheduled COLON CANCER [facility] [employer] Test SCREENING: of Medicine COLONOSCOPY [code = COLON CANCER SCREENING: COLONOSCOPY] Future Scheduled TETANUS SHOT (ADULT) [employer] Test [code = TETANUS SHOT of Medi cine (ADULT)] Future Scheduled Diabetic foot [facility] [employer] Test examination of Medicine (regime/therapy) [code = 173006228] Future Scheduled ANNUAL DIABETIC [facility] [employer] Test RETINOPATHY of Medicine SCREENING [code = ANNUAL DIABETIC RETINOPATHY SCREENING] Future Scheduled BMI FOLLOW UP PLAN [employer] Test [code = BMI FOLLOW of Medici ne UP PLAN] Future Scheduled MEDICARE AWV [facility] [employer] Test (Initial) [code = of Medicin e MEDICARE AWV (Initial)] Future Scheduled FLU VACCINE > 6 [facility] [employer] Test MONTHS [code = FLU of Medici ne VACCINE > 6 MONTHS] Future Scheduled CBC W/AUTO DIFF WITH Ordered: [employer] Test PLATELETS [code = 10/28/2019 of Medicin e 68549-0] Future Scheduled COMPREHENSIVE Ordered: [facility] [employer] Test METABOLIC PANEL 10/28/2019 of Medicine [code = 82213-9] Future Scheduled MAGNESIUM [code = Ordered: [facility] Test 24153-9] 10/28/2019 of Medicine Future Scheduled COLON CANCER [facility] [employer] Test SCREENING: of Medicine COLONOSCOPY [code = COLON CANCER SCREENING: COLONOSCOPY] Future Scheduled TETANUS SHOT (ADULT) [employer] Test [code = TETANUS SHOT of Medi cine (ADULT)] Future Scheduled Diabetic foot [facility] [employer] Test examination of Medicine (regime/therapy) [code = 540950657] Future Scheduled ANNUAL DIABETIC [facility] [employer] Test RETINOPATHY of Medicine SCREENING [code = ANNUAL DIABETIC RETINOPATHY SCREENING] Future Scheduled BMI FOLLOW UP PLAN [employer] Test [code = BMI FOLLOW of Medici ne UP PLAN] Future Scheduled MEDICARE AWV [facility] [employer] Test (Initial) [code = of Medicin e MEDICARE AWV (Initial)] Future Scheduled FLU VACCINE > 6 [facility] [employer] Test MONTHS [code = FLU of Medici ne VACCINE > 6 MONTHS] Future Scheduled TSH [code = 78919-5] Ordered: [employer] Test 12/02/2019 of Medicine Future Scheduled CBC W/AUTO DIFF WITH Ordered: [employer] Test PLATELETS [code = 12/02/2019 of Medicin e 41438-5] Future Scheduled COMPREHENSIVE Ordered: [facility] [employer] [facility] METABOLIC PANEL 12/02/2019 of Medicine [code = 97314-8] Future Scheduled MAGNESIUM [code = Ordered: [facility] Test 92681-4] 12/02/2019 of Medicine Future Scheduled COLON CANCER [facility] [employer] Test SCREENING: of Medicine COLONOSCOPY [code = COLON CANCER SCREENING: COLONOSCOPY] Future Scheduled TETANUS SHOT (ADULT) [employer] Test [code = TETANUS SHOT of Medi cine (ADULT)] Future Scheduled Diabetic foot [facility] [employer] Test examination of Medicine (regime/therapy) [code = 909277425] Future Scheduled ANNUAL DIABETIC [facility] [employer] Test RETINOPATHY of Medicine SCREENING [code = ANNUAL DIABETIC RETINOPATHY SCREENING] Future Scheduled BMI FOLLOW UP PLAN [employer] Test [code = BMI FOLLOW of Medici ne UP PLAN] Future Scheduled MEDICARE AWV [facility] [employer] Test (Initial) [code = of Medicin e MEDICARE AWV (Initial)] Future Scheduled FLU VACCINE > 6 [facility] [employer] Test MONTHS [code = FLU of Medici ne VACCINE > 6 MONTHS] Future Scheduled CBC W/AUTO DIFF WITH Ordered: [employer] Test PLATELETS [code = 02/10/2020 of Medicin e 76580-2] Future Scheduled COMPREHENSIVE Ordered: [facility] [employer] Test METABOLIC PANEL 02/10/2020 of Medicine [code = 70167-5] Future Scheduled MAGNESIUM [code = Ordered: [facility] Test 21859-4] 02/10/2020 of Medicine Future Scheduled TSH [code = 36632-5] Ordered: [employer] Test 02/10/2020 of Medicine Future Scheduled COLON CANCER [facility] Test SCREENING: of Medicine COLONOSCOPY [code = COLON CANCER SCREENING: COLONOSCOPY] Future Scheduled TETANUS SHOT (ADULT) [employer] Test [code = TETANUS SHOT of Medi cine (ADULT)] Future Scheduled Diabetic foot [facility] [employer] Test examination of Medicine (regime/therapy) [code = 934798718] Future Scheduled ANNUAL DIABETIC [facility] [employer] RETINOPATHY of Medicine SCREENING [code = ANNUAL DIABETIC RETINOPATHY SCREENING] Future Scheduled BMI FOLLOW UP PLAN [employer] Test [code = BMI FOLLOW of Medici ne UP PLAN] Future Scheduled MEDICARE AWV [facility] Test (Initial) [code = of Medicin e MEDICARE AWV (Initial)] Future Scheduled FLU VACCINE > 6 [facility] Test MONTHS [code = FLU of Medici ne VACCINE > 6 MONTHS] Future Scheduled CBC W/AUTO DIFF WITH Ordered: [employer] Test PLATELETS [code = 03/23/2020 of Medicin e 88513-2] Future Scheduled COMPREHENSIVE Ordered: [facility] [employer] [facility] METABOLIC PANEL 03/23/2020 of Medicine [code = 77192-1] Future Scheduled MAGNESIUM [code = Ordered: [facility] [employer] Test 19752-1] 03/23/2020 of Medicine Future Scheduled COLON CANCER [facility] [employer] Test SCREENING: of Medicine COLONOSCOPY [code = COLON CANCER SCREENING: COLONOSCOPY] Future Scheduled TETANUS SHOT (ADULT) [employer] Test [code = TETANUS SHOT of Medi cine (ADULT)] Future Scheduled Diabetic foot [facility] [employer] Test examination of Medicine (regime/therapy) [code = 752941172] Future Scheduled ANNUAL DIABETIC [facility] [employer] RETINOPATHY of Medicine SCREENING [code = ANNUAL DIABETIC RETINOPATHY SCREENING] Future Scheduled BMI FOLLOW UP PLAN [employer] Test [code = BMI FOLLOW of Medici ne UP PLAN] Future Scheduled ZOSTER VACCINE (1 of [employer] Test 2) [code = ZOSTER of Medicin e VACCINE (1 of 2)] Future Scheduled MEDICARE AWV [facility] Test (Initial) [code = of Medicin e MEDICARE AWV (Initial)] Future Scheduled FLU VACCINE > 6 [facility] [employer] Test MONTHS [code = FLU of Medici ne VACCINE > 6 MONTHS] Future Scheduled COLON CANCER [facility] [employer] Test SCREENING: of Medicine COLONOSCOPY [code = COLON CANCER SCREENING: COLONOSCOPY] Future Scheduled TETANUS SHOT (ADULT) [employer] Test [code = TETANUS SHOT of Medi cine (ADULT)] Future Scheduled Diabetic foot [facility] [employer] Test examination of Medicine (regime/therapy) [code = 442824929] Future Scheduled ANNUAL DIABETIC [facility] [employer] RETINOPATHY of Medicine SCREENING [code = ANNUAL DIABETIC RETINOPATHY SCREENING] Future Scheduled BMI FOLLOW UP PLAN [employer] Test [code = BMI FOLLOW of Medici ne UP PLAN] Future Scheduled ZOSTER VACCINE (1 of [employer] Test 2) [code = ZOSTER of Medicin e VACCINE (1 of 2)] Future Scheduled MEDICARE IPPE [facility] [employer] Test (WELCOME TO of Medicine MEDICARE) [code = MEDICARE IPPE (WELCOME TO MEDICARE)] Future Scheduled FLU VACCINE > 6 [facility] [employer] Test MONTHS [code = FLU of Medici ne VACCINE > 6 MONTHS] Future Scheduled TEMPUS XT TISSUE NGS Ordered: [employer] Test [code = 42223779] 05/25/2020 of Medicin e Future Scheduled TSH [code = 65485-9] Ordered: [employer] Test 05/27/2020 of Medicine Future Scheduled COLON CANCER [facility] [employer] Test SCREENING: of Medicine COLONOSCOPY [code = COLON CANCER SCREENING: COLONOSCOPY] Future Scheduled TETANUS SHOT (ADULT) [employer] Test [code = TETANUS SHOT of Medi cine (ADULT)] Future Scheduled Diabetic foot [facility] [employer] Test examination of Medicine (regime/therapy) [code = 874871911] Future Scheduled ANNUAL DIABETIC [facility] [employer] Test RETINOPATHY of Medicine SCREENING [code = ANNUAL DIABETIC RETINOPATHY SCREENING] Future Scheduled BMI FOLLOW UP PLAN [employer] Test [code = BMI FOLLOW of Medici ne UP PLAN] Future Scheduled ZOSTER VACCINE (1 of [employer] Test 2) [code = ZOSTER of Medicin e VACCINE (1 of 2)] Future Scheduled MEDICARE IPPE [facility] Test (WELCOME TO of Medicine MEDICARE) [code = MEDICARE IPPE (WELCOME TO MEDICARE)] Future Scheduled FLU VACCINE > 6 [facility] [employer] Test MONTHS [code = FLU of Medici ne VACCINE > 6 MONTHS] Future Scheduled CBC W/AUTO DIFF WITH Ordered: [employer] Test PLATELETS [code = 07/24/2020 of Medicin e 12517-2] Future Scheduled COMPREHENSIVE Ordered: [facility] [employer] Test METABOLIC PANEL 07/24/2020 of Medicine [code = 27341-7] Future Scheduled MAGNESIUM [code = Ordered: [facility] [employer] Test 28104-5] 07/24/2020 of Medicine Future Scheduled TSH [code = 98800-7] Ordered: [employer] Test 07/24/2020 of Medicine Future Scheduled COLON CANCER [facility] [employer] Test SCREENING: of Medicine COLONOSCOPY [code = COLON CANCER SCREENING: COLONOSCOPY] Future Scheduled TETANUS SHOT (ADULT) [employer] Test [code = TETANUS SHOT of Medi cine (ADULT)] Future Scheduled Diabetic foot [facility] [employer] Test examination of Medicine (regime/therapy) [code = 678770495] Future Scheduled ANNUAL DIABETIC [facility] [employer] Test RETINOPATHY of Medicine SCREENING [code = ANNUAL DIABETIC RETINOPATHY SCREENING] Future Scheduled BMI FOLLOW UP PLAN [employer] Test [code = BMI FOLLOW of Medici ne UP PLAN] Future Scheduled ZOSTER VACCINE (1 of [employer] Test 2) [code = ZOSTER of Medicin e VACCINE (1 of 2)] Future Scheduled MEDICARE IPPE [facility] Test (WELCOME TO of Medicine MEDICARE) [code = MEDICARE IPPE (WELCOME TO MEDICARE)] Future Scheduled FLU VACCINE > 6 [facility] Test MONTHS [code = FLU of Medici ne VACCINE > 6 MONTHS] Future Scheduled COMPREHENSIVE Ordered: [facility] [employer] Test METABOLIC PANEL 10/02/2020 of Medicine [code = 39708-2] Future Scheduled CBC W/AUTO DIFF WITH Ordered: [facility] [employer] Test PLATELETS [code = 10/02/2020 of Medicin e 51903-8] Future Scheduled MAGNESIUM [code = Ordered: [facility] [employer] Test 59376-2] 10/02/2020 of Medicine Future Scheduled COLON CANCER [facility] [employer] Test SCREENING: of Medicine COLONOSCOPY [code = COLON CANCER SCREENING: COLONOSCOPY] Future Scheduled COVID-19 Vaccine [facility] Test Evaluation [code = of Medici ne COVID-19 Vaccine Evaluation] Future Scheduled TETANUS SHOT (ADULT) [employer] Test [code = TETANUS SHOT of Medi cine (ADULT)] Future Scheduled Diabetic foot [facility] [employer] Test examination of Medicine (regime/therapy) [code = 895876242] Future Scheduled ANNUAL DIABETIC [facility] [employer] Test RETINOPATHY of Medicine SCREENING [code = ANNUAL DIABETIC RETINOPATHY SCREENING] Future Scheduled BMI FOLLOW UP PLAN [employer] Test [code = BMI FOLLOW of Medici ne UP PLAN] Future Scheduled ZOSTER VACCINE (1 of [employer] Test 2) [code = ZOSTER of Medicin e VACCINE (1 of 2)] Future Scheduled MEDICARE IPPE [facility] [employer] [facility] Test (WELCOME TO of Medicine MEDICARE) [code = MEDICARE IPPE (WELCOME TO MEDICARE)] Future Scheduled FLU VACCINE > 6 [facility] C [facility] Test MONTHS [code = FLU of Medici ne VACCINE > 6 MONTHS] Future Scheduled Screening for [facility] Test malignant neoplasm of Medici ne of colon (procedure) [code = 770895119] Future Scheduled TETANUS SHOT (ADULT) [employer] Test [code = TETANUS SHOT of Medi cine (ADULT)] Future Scheduled Diabetic foot [facility] Test examination of Medicine (regime/therapy) [code = 437064210] Future Scheduled ANNUAL DIABETIC [facility] [employer] Test RETINOPATHY of Medicine SCREENING [code = ANNUAL DIABETIC RETINOPATHY SCREENING] Future Scheduled BMI FOLLOW UP PLAN [employer] Test [code = BMI FOLLOW of Medici ne UP PLAN] Future Scheduled ZOSTER VACCINE (1 of [employer] Test 2) [code = ZOSTER of Medicin e VACCINE (1 of 2)] Future Scheduled MEDICARE AWV [facility] Test (Initial) [code = of Medicin e MEDICARE AWV (Initial)] Future Scheduled FLU VACCINE > 6 [facility] [employer] Test MONTHS [code = FLU of Medici ne VACCINE > 6 MONTHS] Future Scheduled CBC W/AUTO DIFF WITH Ordered: [employer] Test PLATELETS [code = 04/26/2019 of Medicin e 35238-1] Future Scheduled COMPREHENSIVE Ordered: [facility] [employer] Test METABOLIC PANEL 04/26/2019 of Medicine [code = 73670-4] Future Scheduled MAGNESIUM [code = Ordered: [facility] Test 16132-0] 04/26/2019 of Medicine Future Scheduled TSH [code = 88411-2] Ordered: [employer] Test 04/26/2019 of Medicine Future Scheduled COLON CANCER [facility] Test SCREENING: of Medicine COLONOSCOPY [code = COLON CANCER SCREENING: COLONOSCOPY] Future Scheduled MEDICARE AWV [code = [employer] MEDICARE AWV] of Medicine Future Scheduled TETANUS SHOT (ADULT) [employer] Test [code = TETANUS SHOT of Medi cine (ADULT)] Future Scheduled Diabetic foot [facility] [employer] Test examination of Medicine (regime/therapy) [code = 740088651] Future Scheduled ANNUAL DIABETIC [facility] [employer] Test RETINOPATHY of Medicine SCREENING [code = ANNUAL DIABETIC RETINOPATHY SCREENING] Future Scheduled BMI FOLLOW UP PLAN [employer] Test [code = BMI FOLLOW of Medici ne UP PLAN] Future Scheduled HEPATITIS C [facility] Test SCREENING [code = of Medicin e HEPATITIS C SCREENING] Future Scheduled HIV SCREENING [code [facility] or College Test = HIV SCREENING] of Medicine Future Scheduled FLU VACCINE > 6 [facility] [employer] Test MONTHS [code = FLU of Medici ne VACCINE > 6 MONTHS] Future Scheduled CBC W/AUTO DIFF WITH Ordered: [employer] Test PLATELETS [code = 09/02/2019 of Medicin e 49799-9] Future Scheduled COMPREHENSIVE Ordered: [facility] [employer] Test METABOLIC PANEL 09/02/2019 of Medicine [code = 49049-7] Future Scheduled MAGNESIUM [code = Ordered: [facility] Test 88469-9] 09/02/2019 of Medicine Future Scheduled COLON CANCER [facility] Test SCREENING: of Medicine COLONOSCOPY [code = COLON CANCER SCREENING: COLONOSCOPY] Future Scheduled CT CHEST ABDOMEN 1 Occurrences [facility] [employer] Test PELVIS W CONTRAST starting of Medicin e [code = 28478-8] 10/02/2020 until 10/02/[address] CHEST ABDOMEN 1 Occurrences [facility] [employer] Test PELVIS W CONTRAST starting of Medicin e [code = 36439-1] 05/25/2020 until 05/25/2021 Future Scheduled CBC W/AUTO DIFF WITH Every 3 weeks fo r [facility] [employer] Test PLATELETS [code = 16 Occurrences of Medic ine 78213-8] starting 09/09/2019 until 09/09/2020 Future Scheduled COMPREHENSIVE Every 3 weeks for [employer] METABOLIC PANEL 16 Occurrences of Medicin e [code = 83714-8] starting 09/09/2019 until 09/09/2020 Future Scheduled MAGNESIUM [code = Every 3 weeks for [employer] Test 03876-6] 16 Occurrences of Medicine starting 09/09/2019 until 09/09/2020 Future Scheduled US DOPPLER [code = 1 Occurrences [employer] 91963] starting of Medicine 12/02/2019 until 07/03/2020 Encounters Start End Encounter Admission Attending Care Care Encounter Source Date/Time Date/Time Type Type Clinicians Facility Department ID 2021-09-10 2021-09-10 Outpatient CLAUDE HEALY [facility] [id number] SLE 00:00:00 23:59:00 2021-09-10 2021-09-10 Outpatient [facility] [id number] SLE 00:00:00 00:00:00 2021-07-19 2021-07-19 [facility].2.840.114 [id number] [facility] 09:59:11 13:06:44 Visit VICTORIA Valdes 350.1.13.21 Co llege 0.2.7.2.686 of [id number] [facility] jennifer 504 e 2021-05-24 2021-05-24 Office SUKHI BERMUDEZ [facility] 1.2.840.114 [id number] [facility] 12:46:18 14:51:19 Visit Lucio 350.1.13.21 Co llege 0.2.7.2.686 of [id number] Medi jennifer 504 e 2021-05-23 2021-05-23 Outpatient RAFAEL KELLY [facility] [id number] [facility] 10:47:45 13:28:23 Colleg e of Medicin e 2021-05-09 2021-05-09 Office RAFAEL KELLY [facility] 1.2.840.114 [id number] [facility] 10:41:34 11:35:17 Visit AMBULATOR 350.1.13.21 College Y 0.2.7.2.686 of [id number] [facility] jennifer 300 e 2021-04-25 2021-04-25 Office RAFAEL KELLY ADRIAN 1.2.840.114 [id number] [facility] 10:38:14 12:06:25 Visit AMBULATOR 350.1.13.21 College Y 0.2.7.2.686 of [id number] [facility] jennifer 300 e 2021-04-11 2021-04-11 [facility] Flynndonald DequanCarter [facility] [id number] 09:10:05 23:59:00 Encounter [facility] 2021-04-11 2021-04-11 [facility] FlynnClaude bennett [facility] [id number] [facility] [address] 09:09:57 09:09:57 Encounter [facility] 2021-04-11 2021-04-11 Outpatient AIDAN CARMENZASEVERO [facility] [id number] SLE 00:00:00 00:00:00 2021-04-11 2021-04-11 Outpatient AIDAN CARMENZASEVERO [facility] [id number] SLE 00:00:00 00:00:00 2021-03-27 2021-03-27 Outside Claude Bermudez [facility] [id number] 00:00:00 00:00:00 Orders [facility] 2021-03-26 2021-03-26 Office Sukhi Bermudez [facility] 1.2.840.114 [id number] 10:29:33 15:09:19 Visit Edward Lucio 350.1.13.21 0.2.7.2.686 [id number] 530 2021-03-26 2021-03-26 Office Sukhi Bermudez [facility] 1.2.840.114 [id number] [facility] 10:29:33 15:09:19 Visit Edward Lucio 350.1.13.21 Co llege 0.2.7.2.686 of [id number] [facility] jennifer 530 e 2021-02-06 2021-02-06 Hospital Claude Bermudez [facility] [id number] 11:02:21 23:59:[facility] 2021-02-06 2021-02-06 Hospital Claude Bermudez [facility] [id number] 11:02:12 23:59:00 [facility] 2021-02-06 2021-02-06 Outpatient YECLAUDE Bennett [facility] SLE [id number] SLE 00:00:00 00:00:00 2021-02-06 2021-02-06 Outpatient EL AIDAN, CLAUDE [facility] [id number] [facility] 00:00:00 00:00:00 2021-01-23 2021-01-23 Outside Claude Bermudez [facility] [id number] 00:00:00 00:00:00 Orders [facility] 2021-01-22 2021-01-22 Office SIDDHARTHA Unger 1.2.840.114 [id number] 10:51:06 13:05:10 Visit Victoria Valdes 350.1.13.21 Laura 0.2.7.2.686 [id number] 530 2021-01-22 2021-01-22 Office SIDDHARTHA Unger 1.2.840.[id number] [place] [address] 10:51:06 13:05:10 Visit Victoria Valdes 350.1.13.21 Co jordy Olmedo 0.2.7.2.686 of [id number] [facility] jennifer 530 e 2020-11-27 2020-11-27 Office Sukhi Bermudez [facility] 1.2.840.114 [id number] 09:48:38 11:14:28 Visit Ishaan Valdes 350.1.13.21 0.2.7.2.686 [id number] 530 2020-11-27 2020-11-27 Office Sukhi Bermudez [facility] 1.2.840.114 [id number] [facility] 09:48:38 11:14:28 Visit Ishaan Valdes 350.1.13.21 Co jordy 0.2.7.2.686 [id number] [facility] jennifer 530 e 2020-11-19 2020-11-19 [facility] Claude Bermudez [facility] [id number] 09:31:38 23:59:00 [facility] 2020-11-19 2020-11-19 [facility] Claude Bermudez [facility] [id number] 09:31:28 23:59:00 [facility] 2020-11-19 2020-11-19 Outpatient CLAUDE BERMUDEZ [facility] SLE [id number] SLE 00:00:00 00:00:00 2020-11-19 2020-11-19 Outpatient CLAUDE BERMUDEZ [facility] SLE [id number] SLE 00:00:00 00:00:00 2020-11-17 2020-11-17 Immunizati Lucius [facility] [id number] 12:26:25 12:36:25 on [facility] 2020-11-17 2020-11-17 Outpatient [facility] [id number] [facility] 00:00:00 00:00:00 2020-10-27 2020-10-27 Immunizati Jeancarlos Carrion [facility] [id number] 13:52:49 14:02:49 on [facility] 2020-10-27 2020-10-27 Outpatient [facility] [id number] [facility] 00:00:00 00:00:00 2020-10-03 2020-10-03 [facility] Claude Bermudez [facility] [id number] 00:00:00 00:00:00 Orders [facility] 2020-10-02 2020-10-02 Office Sukhi Bermudez [facility] 1.2.840.114 [id number] 09:52:54 10:12:54 Visit Edward Lucio 350.1.13.21 0.2.7.2.686 [id number] [facility] 2020-10-02 2020-10-02 Office Sukhi Bermudez [facility] 1.2.840.114 [id number] [facility] 09:52:54 10:12:54 Visit Edward Lucio 350.1.13.21 Co llege 0.2.7.2.686 of [id number] [place] [address] e 2020-07-24 2020-07-24 Office Sukhi Bermudez [facility] 1.2.840.114 [id number] 09:42:03 11:50:12 Visit Edward Lucio 350.1.13.21 0.2.7.2.686 [id number] [facility] 2020-07-24 2020-07-24 Office Sukhi Bermudez [facility] 1.2.840.114 [id number] [facility] 09:42:03 11:50:12 Visit Edward Lucio 350.1.13.21 Co llege 0.2.7.2.686 of [id number] [place] [address] e 2020-07-12 2020-07-12 [facility] Claude Bermudez [facility] [id number] [facility] [address] 10:30:03 23:59:00 [facility] 2020-07-12 2020-07-12 [facility] Claude Bermudez [facility] [id number] [facility] [address] 10:29:49 10:29:49 Encounter 1, [facility] [address] Room [facility] 2020-07-12 2020-07-12 Outpatient CLAUDE BERMUDEZ SLE SLE [id number] SLE 00:00:00 00:00:00 2020-07-12 2020-07-12 Outpatient CLAUDE BERMUDEZ SLE SLE [id number] [facility] 00:00:00 00:00:00 2020-05-30 2020-05-30 Outside Claude Bermudez [facility] [id number] [facility] [address] 00:[facility]00 00:00:00 Orders [facility] 2020-05-25 2020-05-25 Office Sukhi Bermudez [facility] 1.2.840.114 [id number] 12:15:16 14:16:12 Visit Eddanilo Lucio 350.1.13.21 0.2.7.2.686 [id number] 530 2020-05-25 2020-05-25 Office Sukhi Bermudez [facility] 1.2.840.114 [id number] [facility] 12:15:16 14:16:12 Visit Eddanilo Lucio 350.1.13.21 Co llege 0.2.7.2.686 of [id number] [facility] 530 e 2020-05-09 2020-05-10 [facility] LISSETTE KyleYasmine gaytan [facility] [id number] 17:16:00 17:37:[address] [facility] 2020-05-09 2020-05-09 Outpatient [facility] [id number] SLE 17:16:00 17:16:00 [facility] 2020-05-09 2020-05-09 [facility] Claude Healy [facility] [id number] 10:00:00 17:15:00 Encounter [facility] 2020-05-09 2020-05-09 Outpatient CLAUDE HEALY SLE SLE [id number] SLE 00:00:00 00:00:00 2020-05-09 2020-05-09 Outpatient DEQUAN HEALYCARTER SLE SLE [id number] [facility]H 00:00:00 00:00:00 2020-05-09 2020-05-09 Outpatient SLE SLE [id number] SLEH 00:00:00 00:00:00 2020-05-09 2020-05-09 Tara Kyle, [facility] [id number] 00:00:00 00:00:00 Only Yasmine RamosDavidson Carmen [facility] 2020-05-09 2020-05-[address] [facility] [id number] [facility] 00:[facility] 00:00:00 [facility] 2020-05-03 2020-05-03 Outpatient CLAUDE HEALY SLEH SLEH [id number] SLEH 00:00:00 00:00:00 2020-04-30 2020-04-30 [facility] [id number] 23:59:00 23:59:00 Encounter [facility] 2020-04-30 2020-04-30 Outpatient EL SLEH SLEH [id number] SLEH 00:00:00 00:00:00 2020-04-27 2020-04-27 Office Sukhi Bermudez [facility] 1.2.840.114 [id number] 09:42:37 10:02:37 Visit Ishaan Guardador 350.1.13.21 0.2.7.2.686 [id number] 530 2020-04-27 2020-04-27 Office Sukhi Bermudez [facility] 1.2.840.114 [id number] [facility] 09:42:37 10:02:37 Visit Ishaan Guardador 350.1.13.21 Co llege 0.2.7.2.686 of [id number] [facility] 530 e 2020-04-25 2020-04-25 [facility] [id number] 23:59:00 23:59:00 Encounter [facility] 2020-04-25 2020-04-25 Outpatient EL SLEH SLEH [id number] SLEH 00:00:00 00:00:00 2020-04-25 2020-04-25 Outpatient SLEH SLEH [id number] SLEH 00:00:00 00:00:00 2020-04-24 2020-04-24 Outside Claude Bermudez [facility] [id number] 00:00:00 00:00:00 Orders Ishaan [facility] 2020-04-20 2020-04-20 [facility] Dequan BermudezCarter [facility] [id number] [facility] 09:20:00 15:00:00 Encounter [facility] 2020-04-20 2020-04-20 Outpatient LISSETTE SLESantiago SLEH [id number] SLEH 00:00:00 00:00:00 2020-04-13 2020-04-13 Hospital Claude Healy [facility] [id number] [facility] 10:22:26 23:59:00 Encounter [facility] 2020-03-23 2020-03-23 Office FlynnSukhi bennett [facility] 1.2.840.114 [id number] [facility] 09:07:42 10:05:06 Visit Edward Lucio 350.1.13.21 Co llege 0.2.7.2.686 of [id number] [facility] 530 e 2020-03-23 2020-03-23 Office Sukhi Bermudez [facility] 1.2.840.114 [id number] 09:07:42 10:05:06 Visit Edward Lucio 350.1.13.21 0.2.7.2.686 [id number] 530 2020-02-15 2020-02-15 Outpatient CLAUDE BERMUDEZ SLESantiago SLEH [id number] SLEH 00:00:00 00:00:00 2020-02-15 2020-02-15 Outpatient EL CLAUDE BERMUDEZ SLESantiago SLEH [id number] SLEH 00:00:00 00:00:00 2020-02-10 2020-02-10 Office Sukhi Bermudez [facility] 1.2.840.114 [id number] 09:58:05 11:20:50 Visit Edward Lucio 350.1.13.21 0.2.7.2.686 [id number] [facility] 2020-02-10 2020-02-10 Office AidanCarmenzacarter [facility] 1.2.840.114 [id number] [facility] 09:58:05 11:20:50 Visit Edward Lucio 350.1.13.21 Co llege 0.2.7.2.686 of [id number] [facility] 530 e 2019-12-02 2019-12-02 Office Claude Bermudez [facility] 1.2.840.114 [id number] 09:52:39 10:12:39 Visit Keysha Lucio 350.1.13.21 0.2.7.2.686 [id number] 530 2019-12-02 2019-12-02 Office Claude Bermudez [facility] 1.2.840.114 [id number] [facility] 09:52:39 10:12:39 Visit Keysha DavisLucio 350.1.13.21 Co llege 0.2.7.2.686 of [id number] [facility] 530 e 2019-10-28 2019-10-28 Office Nikolai [facility] 1.2.840.114 [id number] 08:54:45 09:24:45 Visit Victoria Guardador 350.1.13.21 Laura 0.2.7.2.686 [id number] [facility] 2019-10-28 2019-10-28 Office Nikolai [facility] 1.2.840.[id number] [place] [address] 08:54:45 09:24:45 Visit Victoria DavisNair 350.1.13.21 Co llege Laura 0.2.7.2.686 of [id number] [facility] 530 e 2019-10-07 2019-10-07 Office Nikolai [facility] 1.2.840.114 [id number] 11:02:38 13:13:39 Visit Victoria Guardador 350.1.13.21 Laura 0.2.7.2.686 [id number] [facility] 2019-10-07 2019-10-07 Office Nikolai [facility] 1.2.840.114 [id number] [facility] 11:02:38 13:13:39 Visit Victoria DavisNair 350.1.13.21 Co llege Laura 0.2.7.2.686 of [id number] [facility] 530 e 2019-09-09 2019-09-09 Office Dequan BermudezCarter [facility] 1.2.840.114 [id number] 09:18:01 12:12:58 Visit Keysha Lucio 350.1.13.21 0.2.7.2.686 [id number] 530 2019-09-09 2019-09-09 Office Claude Bermudez [facility] 1.2.840.114 [id number] [facility] 09:18:01 12:12:58 Visit E Lucio 350.1.13.21 Co llege 0.2.7.2.686 of [id number] [facility] jennifer 530 e 2019-09-02 2019-09-02 Office Claude Bermudez [facility] 1.2.840.114 [id number] 12:23:05 13:04:24 Visit E Lucio 350.1.13.21 0.2.7.2.686 [id number] [facility] 2019-09-02 2019-09-02 Office Claude Bermudez [facility] 1.2.840.114 [id number] [facility] 12:23:05 13:04:24 Visit E Lucio 350.1.13.21 Co llege 0.2.7.2.686 of [id number] [facility] 530 e 2019-04-26 2019-04-26 Office Claude Bermudez [facility] 1.2.840.114 [id number] 08:26:03 10:59:55 Visit E Lucio 350.1.13.21 0.2.7.2.686 [id number] 530 2019-04-26 2019-04-26 Office Claude Bermudez [facility] 1.2.840.114 [id number] [facility] 08:26:03 10:59:55 Visit E Lucio 350.1.13.21 Co llege 0.2.7.2.686 of [id number] [facility] jennifer 530 e 2018-12-17 2018-12-17 Outpatient LISSETTE MOFFETT, SLESantiago SLEH [id number] SLEH 00:00:00 00:00:00 STEPHANIE Results Test Description Test Time Test Comments Results Result Comments Source COMPREHENSIVE METABOLIC PANEL 2021-07-19 18:18:11 Test Item Value Reference Range Interpretation Comme nts GLUCOSE (test code = 2345-7) See_Comment H [Automated message] The system which generated this result transmitted ref erence range: 70 - 99 MG/DL. The reference range was not used to interpret this result as gulshan l/abnormal. BLOOD UREA NITROGEN (test code See_Comment [Automated message] The system = 3091-6) which generated this result transmitted ref erence range: 8 - 23 MG/DL. The r eference range was not used to interpret this result as gulshan l/abnormal. CREATININE (test code = See_Comment L EFF ECTIVE 07/15/2021, CPL HAS 2160-0) IMPLEMENTED THE NKF-ASN RECOMMENDED 202 1CKD-EPI EGFR REFIT CALCULATI ON THAT DOES NOT INCLUDE A COEFF ICIENT FORRACE. FOR MORE INFORM ATION, SEE ANNOUNCEMENT [email or web address] [Automated message] The system which ge nerated this result transmit anne marie reference range: 0.8 - 1. 4 MG/DL. The reference range was not used to interpret this result as normal/abnormal . EGFR (test code = 25285-0) See_Comment [Automated message] The system which generated this result transmitted ref erence range: >60 ML/MIN/1.73. Th e reference range was not used to interpret this result as gulshan l/abnormal. BUN/CREAT RATIO (test code = See_Comment [Automated message] The system 3097-3) which generated this result transmitted ref erence range: 6 - 28 RATIO. The r eference range was not used to interpret this result as gulshan l/abnormal. SODIUM (test code = 2951-2) See_Comment [Automated message] The system which generated this result transmitted ref erence range: 133 - 146 MEQ/L. Th e reference range was not used to interpret this result as gulshan l/abnormal. POTASSIUM (test code = 2823-3) See_Comment [Automated message] The system which generated this result transmitted ref erence range: 3.5 - 5.4 MEQ/L. Th e reference range was not used to interpret this result as gulshan l/abnormal. CHLORIDE (test code = 2075-0) See_Comment [Automated message] The system which generated this result transmitted ref erence range: 100 - 112 MEQ/L. Th e reference range was not used to interpret this result as gulshan l/abnormal. CO2 (test code = 1963-8) See_Comment H [A utomated message] The system which generated this result transmitted ref erence range: 21 - 30 MEQ/L. The reference range was not used to interpret this result as gulshan l/abnormal. CALCIUM (test code = 08907-3) See_Comment [Automated message] The system which generated this result transmitted ref erence range: 8.5 - 10.5 MG/DL. T he reference range was not u sed to interpret this result as normal/abnormal. PROTEIN TOTAL (test code = See_Comment [Automated message] The system 2) which generated this result transmitted ref erence range: 6.1 - 8.1 G/DL. The reference range was not used to interpret this result as gulshan l/abnormal. ALBUMIN (test code = 09512-7) See_Comment [Automated message] The system which generated this result transmitted ref erence range: 3.4 - 4.8 G/DL. The reference range was not used to interpret this result as gulshan l/abnormal. GLOBULINS, SERUM, TOTAL (test See_Comment [Automated message] The system code = 36216-3) which genera anne marie this result transmitted ref erence range: 1.9 - 3.7 G/DL. The reference range was not used to interpret this result as gulshan l/abnormal. A/G RATIO (test code = 1759-0) See_Comment [Automated message] The system which generated this result transmitted ref erence range: 1.0 - 2.6 RATIO. Th e reference range was not used to interpret this result as gulshan l/abnormal. BILIRUBIN TOTAL (test code = See_Comment [Automated message] The system 1974-09) which generated this result transmitted ref erence range: <=1.2 MG/DL. Th e reference range was not used to interpret this result as gulshan l/abnormal. ALKALINE PHOSPHATASE (test 60 U/L 30-132 code = 6768-6) AST (SGOT) (test code = 38 U/L -56 1919-8) ALT (SGPT) (test code = 44 U/L 3-47 TESTING PERFORMED AT 1744-2) [facility] [employer] [address] [facility] [place] [address] [place] [address] CLIA NO. [id number] Unless Otherwise Indic ated, All Testing Performed At: [facility], [address], [place] [address] Laboratory Dir sandy: Ji Morton M.D. CLIA Number [id number] Cap Accreditation N o. Lab Interpretation (test code Abnormal = 87416-6) [id number] 18:17:59 Test Item Value Reference Range Interpretation Comments MAGNESIUM (test code = See_Comment L TESTING ) PERFORMED AT [facility], [place] [address], [place] [address] [place] [address] CLIA NO. [id number] Unless Otherwis e Indicated, All Testing Performed At: [facility], [address], [place] [address] Laboratory Dire ctor: Ji bennett M.D. CLIA Num vani [id number] [employer]reditation N o. [Auto mated message] The sy stem which generated this result transmit anne marie reference range : 1.6 - 2.6 MG/DL. The reference range was not used to int erpret this result as normal/abnormal . Lab Interpretation Abnormal (test code = 84597-6) [facility] W/AUTO DIFF WITH [id number] 17:41:46 Test Item Value Reference Range Interpretation Comments WHITE BLOOD CELL COUNT See_Comment [Aut omated message] (test code = 71674-1) The sy stem which generated this result transmitted ref erence range: 3.5 - 11 .0 K/UL. The refer ence range was not u sed to interpret this result as normal/abnor mal. RED BLOOD CELL COUNT See_Comment L [Autom ated message] (test code = 28172-7) The sy stem which generated this result transmitted ref erence range: 4.50 - 6 .10 M/UL. The refer ence range was not u sed to interpret this result as normal/abnor mal. HEMOGLOBIN (test code = See_Comment L [Au tomated message] 718-7) The system whic h generated this result transmitted ref erence range: 13.5 - 1 7.0 G/DL. The refer ence range was not u sed to interpret this result as normal/abnor mal. HEMATOCRIT (test code = 33.5 % 40.0-51.0 L 81210-5) MEAN CORPUSCULAR VOLUME 103.4 fL 80.0-99.0 H (test code = 40586-4) MEAN CORPUSCULAR 32.1 PG 25.0-33.0 HEMOGLOBIN (test code = 50705-7) MEAN CORPUSCULAR See_Comment [Automated message] HEMOGLOBIN CONC (test The sy stem which code = 31698-9) generated th is result transmitted ref erence range: 31.0 - 3 6.0 G/DL. The refer ence range was not u sed to interpret this result as normal/abnor mal. RED CELL DISTRIBUTION 15.7 % 11.5-15.0 H WIDTH (test code = 55237-8) NEUTROPHILS % (test 57 % NOTE: E FFECTIVE code = 91333-5) 06/24/2021, REFERENCE INTERVALS AND F LAGGING FORRELATIVE (%) WBC DIFFERENTIAL WI LL BE ELIMINATED REDUNDANT TOABS OLUTE COUNTS.SEE [email or web address]_ [email or web address] pdate LYMPHOCYTES % (test 25 % code = 12755-0) MONOCYTES % (test code 13 % = 92645-9) EOSINOPHILS % (test 4 % code = 93023-6) BASOPHILS % (test code 1 % = 26202-2) PLATELET COUNT (test See_Comment T ESTING code = 99961-4) PERFORMED AT [facility], [facility]. [address] [facility] [address] [place] [address] CLIA NO. [id number] [Automated mess age] The system whic h generated this result transmitted ref erence range: 130 - 40 0 K/UL. The reference r maria a was not used to interpret this result as normal/abnor mal. NEUTROPHILS ABSOLUTE See_Comment [Autom ated message] COUNT (test code = The syste m which 29341-4) generated this result transmitted ref erence range: 1.50 - 7 .50 K/UL. The refer ence range was not u sed to interpret this result as normal/abnor mal. LYMPHOCYTES ABSOLUTE See_Comment [Autom ated message] COUNT (test code = The syste m which 07262-9) generated this result transmitted ref erence range: 1.00 - 4 .00 K/UL. The refer ence range was not u sed to interpret this result as normal/abnor mal. MONOCYTES ABSOLUTE See_Comment [Automat ed message] COUNT (test code = The syste m which 27562-7) generated this result transmitted ref erence range: 0.20 - 1 .00 K/UL. The refer ence range was not u sed to interpret this result as normal/abnor mal. BASOPHILS ABSOLUTE See_Comment Unless COUNT (test code = Otherwise Indicated, 68752-1) All Testing Per formed At: [facility], [address] [place] [address] Laboratory Dire ctor: Ji bennett M.D. CLIA Num vani [id number] Cap Accreditation N o. [id number] [Auto mated message] The sy stem which generated this result transmit anne marie reference range : 0.00 - 0.20 K/UL. Th e reference range was not used to int erpret this result as normal/abnormal . Lab Interpretation Abnormal (test code = 77298-8) [facility] [id number] 19:26:39 Test Item Value Reference Range Interpretation Comments GLUCOSE (test code = See_Comment H [Autom ated message] 1705-7) The system [employer] generated this result transmitted ref erence range: 70 - 99 MG/DL. The reference r maria a was not used to interpret this result as normal/abnor mal. BLOOD UREA NITROGEN See_Comment [Automa anne marie message] (test code = 3091-6) The sys tem which generated this result transmitted ref erence range: 8 - 23 M G/DL. The reference r mariaa was not used to interpret this result as normal/abnor mal. CREATININE (test code = See_Comment L [Au tomated message] 5510-0) The system [employer] generated this result transmitted ref erence range: 0.80 - 1 .40 MG/DL. The refe rence range was not u sed to interpret this result as normal/abnor mal. EGFR AA (test code = See_Comment [Autom ated message] 06379-1) The system [employer] generated this result transmitted ref erence range: >60 ML/MIN/1.73. Th e reference range was not used to int erpret this result as normal/abnormal . EGFR (test code = See_Comment [Automate d message] 96844-7) The system organgir[employer]am generated this result transmitted ref erence range: >60 ML/MIN/1.73. Th e reference range was not used to int erpret this result as normal/abnormal . BUN/CREAT RATIO (test See_Comment [Auto mated message] code = 3097-3) The system [employer] generated this result transmitted ref erence range: 6 - 28 R ATIO. The reference r maria a was not used to interpret this result as normal/abnor mal. SODIUM (test code = See_Comment [Automa anne marie message] 2951-2) The system organgir.am generated this result transmitted ref erence range: 133 - 14 6 MEQ/L. The refe rence range was not u sed to interpret this result as normal/abnor mal. POTASSIUM (test code = See_Comment [Aut omated message] 2823-3) The system [employer]ang[employer]am generated this result transmitted ref erence range: 3.5 - 5. 4 MEQ/L. The refe rence range was not u sed to interpret this result as normal/abnor mal. CHLORIDE (test code = See_Comment [Auto mated message] 2625-0) The system [employer]ang[employer]am generated this result transmitted ref erence range: 100 - 11 2 MEQ/L. The refe rence range was not u sed to interpret this result as normal/abnor mal. CO2 (test code = See_Comment [Automated message] 1962-8) The system [employer]ang[employer].am generated this result transmitted ref erence range: 21 - 30 MEQ/L. The reference r maria a was not used to interpret this result as normal/abnor mal. CALCIUM (test code = See_Comment [Autom ated message] 69201-3) The system [facility] organgir.am generated this result transmitted ref erence range: 8.5 - 10 .5 MG/DL. The refe rence range was not u sed to interpret this result as normal/abnor mal. PROTEIN TOTAL (test See_Comment [Automa anne marie message] code = 2885-2) The system In[employer] generated this result transmitted ref erence range: 6.1 - 8. 1 G/DL. The reference r maria a was not used to interpret this result as normal/abnor mal. ALBUMIN (test code = See_Comment [Autom ated message] 33018-2) The system [employer] generated this result transmitted ref erence range: 3.4 - 4. 8 G/DL. The reference r maria a was not used to interpret this result as normal/abnor mal. GLOBULINS, SERUM, TOTAL See_Comment [Au tomated message] (test code = 53299-9) The sy stem which generated this result transmitted ref erence range: 1.9 - 3. 7 G/DL. The reference r maria a was not used to interpret this result as normal/abnor mal. A/G RATIO (test code = See_Comment [Aut omated message] 1759-0) The system [employer] generated this result transmitted ref erence range: 1.0 - 2. 6 RATIO. The refe rence range was not u sed to interpret this result as normal/abnor mal. BILIRUBIN TOTAL (test See_Comment [Auto mated message] code = 1975-2) The system [facility] generated this result transmitted ref erence range: <=1.2 MG /DL. The reference r maria a was not used to interpret this result as normal/abnor mal. ALKALINE PHOSPHATASE 76 U/L 30-132 (test code = 6768-6) AST (SGOT) (test code = 36 U/L 7-56 1920-8) ALT (SGPT) (test code = 42 U/L 3-47 TESTING 1744-2) PERFORMED AT [facility], [place] [address] [place] [address] [place] [address] CLIA NO. [id number] Unless Otherwis e Indicated, All Testing Performed At: [facility], [address] [place] [address] Laboratory Dire ctor: Ji bennett M.D. CLIA Num vani [id number] Cap Accreditation N o. [id number] Lab Interpretation Abnormal (test code = 27606-0) [facility] W/AUTO DIFF WITH [id number] 19:06:10 Test Item Value Reference Range Interpretation Comments WHITE BLOOD CELL COUNT See_Comment [Aut omated message] (test code = 19140-8) The sy stem which generated this result transmitted ref erence range: 3.5 - 11 .0 K/UL. The refer ence range was not u sed to interpret this result as normal/abnor mal. RED BLOOD CELL COUNT See_Comment L [Autom ated message] (test code = 04630-3) The sy stem which generated this result transmitted ref erence range: 4.50 - 6 .10 M/UL. The refer ence range was not u sed to interpret this result as normal/abnor mal. HEMOGLOBIN (test code = See_Comment L [Au tomated message] 718-7) The system whic h generated this result transmitted ref erence range: 13.5 - 1 7.0 G/DL. The refer ence range was not u sed to interpret this result as normal/abnor mal. HEMATOCRIT (test code = 38.0 % 40.0-51.0 L 11218-3) MEAN CORPUSCULAR VOLUME 93.8 fL 80.0-99.0 (test code = 37940-3) MEAN CORPUSCULAR 29.9 PG 25.0-33.0 HEMOGLOBIN (test code = 44318-4) MEAN CORPUSCULAR See_Comment [Automated message] HEMOGLOBIN CONC (test The sy stem which code = 00188-9) generated th is result transmitted ref erence range: 31 - 36 G/DL. The reference r maria a was not used to interpret this result as normal/abnor mal. RED CELL DISTRIBUTION 13.5 % 11.5-15.0 WIDTH (test code = 42530-0) NEUTROPHILS % (test 43 % 40.0-75.0 code = 30416-0) LYMPHOCYTES % (test 43 % 20.0-45.0 code = 48957-2) MONOCYTES % (test code 10 % 4.0-12.0 = 03134-6) EOSINOPHILS % (test 3 % 0.0-7.0 code = 49300-0) BASOPHILS % (test code 0 % 0.0-2.0 = 85458-0) PLATELET COUNT (test See_Comment T ESTING code = 47434-0) PERFORMED AT [facility] [place] [address], [place] [address] [place] [address] CLIA NO. [id number] [Automated mess age] The system whic h generated this result transmitted ref erence range: 130 - 40 0 K/UL. The reference r maria a was not used to interpret this result as normal/abnor mal. NEUTROPHILS ABSOLUTE See_Comment [Autom ated message] COUNT (test code = The syste m which 28763-9) generated this result transmitted ref erence range: 1.50 - 7 .50 K/UL. The refer ence range was not u sed to interpret this result as normal/abnor mal. LYMPHOCYTES ABSOLUTE See_Comment [Autom ated message] COUNT (test code = The syste m which 90815-9) generated this result transmitted ref erence range: 1.00 - 4 .00 K/UL. The refer ence range was not u sed to interpret this result as normal/abnor mal. MONOCYTES ABSOLUTE See_Comment [Automat ed message] COUNT (test code = The syste m which 40525-3) generated this result transmitted ref erence range: 0.20 - 1 .00 K/UL. The refer ence range was not u sed to interpret this result as normal/abnor mal. BASOPHILS ABSOLUTE See_Comment Unless COUNT (test code = Otherwise Indicated, 81579-2) All Testing Per formed At: [facility], [address] [place] [address] Laboratory Dire ctor: Ji bennett M.D. CLIA Num vani [id number] Cap Accreditation N o. [id number] [Auto mated message] The sy stem which generated this result transmit anne marie reference range : 0.00 - 0.20 K/UL. Th e reference range was not used to int erpret this result as normal/abnormal . Lab Interpretation Abnormal (test code = 60872-5) [facility], WITH IV [id number] 10:55:00Unlisted Reason for Exam - Click Yes and Enter Reason Below->YesUnlisted Reason for Exam->Cancer of right kidney [facility] : 1960 Sex: MFINAL REPORT CT of the abdomen with and without contrast, CT ofchest and pelvis with contrast Clinical History: Unlisted Reason for ExamCancer of right kidney Technique: CT of the abdomen is performed without IV contrast, followed by CT of chest, abdomen and pelvis performed with intravenous contrast administration and without oral contrast administration. Thisexam was performed according to our departmental dose [...] peripheral right hepatic lobe is stable, measuring a pproximately 3.4 x 1.7 cm. A stable 1 cm enhancing focus in segment 2 is probably a hemangioma. No new liver mass. No biliary ductal dilatation. Gallbladder is contracted. Spleen, pancreas, and adrenalglands are unremarkable. Infiltrative right renal mass with [...] or abnormal bowel wall thickening. Normal appendix. Inthe pelvis, bladder is normal. Prostate gland is [...] the chest, abdomen or pelvis. Signed: Lizzette Smithort Verified Date/Time: 04/11/2021 10:55:35 Reading Location: [address] Ortho Consult Reading Room CT, [id number] 10:55:00Unlisted Reason for Exam - Click Yes and Enter Reason Below->Yes Unlisted Reason for Exam->Cancer of right kidney Will this procedure require oral contrast?->No [facility] 1960 Sex: MFINAL REPORT CT of the abdomen with and without contrast, CT ofchest and pelvis with contrast Clinical History: Unlisted Reason for ExamCancer of right kidney Technique: CT of the abdomen is performed without IV contrast, followed by CT of chest, abdomen and pelvis performed with intravenous contrast administration and without oral contrast administration. Thisexam was performed according to our departmental dose [...] peripheral right hepatic lobe is stable, measuring a pproximately 3.4 x 1.7 cm. A stable 1 cm enhancing focus in segment 2 is probably a hemangioma. No new liver mass. No biliary ductal dilatation. Gallbladder is contracted. Spleen, pancreas, and adrenalglands are unremarkable. Infiltrative right renal mass with [...] or abnormal bowel wall thickening. Normal appendix. Inthe pelvis, bladder is normal. Prostate gland is [...] the chest, abdomen or pelvis. Signed: Lizzette Smithort Verified Date/Time: 04/11/2021 10:55:35 Reading Location: [address] Consult Reading Room [facility] abdomen/pelvis without & with IV [id number] 10:55:00Interface, External Ris In - 04/11/2021 10:[address] of the abdomen with and [...] of the mA and/or kV according to p atient's size and/or use of iterative reconstructive technique. [...] grossly stable. Left kidney is unremarkable. No hydrone phrosis, or radiopaque stone. There are multiple right [...] structures demonstrate degenerative changes. No destructive bony lesionis identified. Impression: Compared to February 06, 2021, no change in appearance of the infiltrative right renal mass with renal vein and IVC invasion, as well as hepatic, retroperitoneal, peritoneal metastatic deposits. Stable pulmonary nodules. No new disease is identified in the chest, abdomen or pelvis. Signed: Lizzette Smithort Verified Date/Time: 04/11/2021 10:55:35 Reading Location: [facility] O023MSuhli Consult Reading Room [facility] with IV [id number] 10:55:00Interface, External Ris In - 04/11/2021 10:[address] of the abdomen with and without contrast, CT of chest and pelvis with contrast Clinical History: Unlisted Loida son for ExamCancer of right kidney Technique: CT [...] grossly stable. Left kidney is unremarkable. No hydrone phrosis, or radiopaque stone. There are multiple right [...] structures demonstrate degenerative changes. No destructive bony lesionis identified. Impression: Compared to February 06, 2021, no change in appearance of the infiltrative right renal mass with renal vein and IVC invasion, as well as hepatic, retroperitoneal, peritoneal metastatic deposits. Stable pulmonary nodules. No new disease is identified in the chest, abdomen or pelvis. Signed: Lizzette Smith Verified Date/Time: 04/11/2021 10:55:35 Reading Location: [facility] P291O[facility]dggmInd[facility]CT, [facility]ST, WITH IV [id number] 17:27:00Restaging RCC, please compare to prior. Pt in wheelchairRestaging RCC, please compare to prior. Pt in wheelchairUnlisted Reason for Exam - Click Yes and Enter Reason Below->YesUnlisted Reason for Exam->C64.1 (ICD-10-CM) - Cancer of right kidney (HCCode)Anesthesia:->None [facility] : 1960 Sex: MFINAL REPORT CT, CHEST, WITH IV CONTRAST, CT, ABDOMEN \\T\\ PELVIS, WITH IV CONTRAST HISTORY: Unlisted Reason for ExamC64.1 (ICD-10-CM) - Cancer of right kidney (HCCode) TECHNIQUE: CT of the chest, abdomen and pelvis is performed with intravenous contrast administration. This exam was performed according to our departmental dose optimization program which includesautomated exposure control, adjustment of the mA and/or kV according to patient's size and/or use ofiterative reconstructive technique. COMPARISON: CT chest abdomen pelvis [...] normal. Infiltrative right renal mass in the rightkidney extending to the right renal vein, and [...] metastasis. 4.Unchanged solid pulmonary nodules. 5.Previously noted borderline-enlarged right axillary node has resolved and was most likely reactive. 6. Ovoid 20 mm focus of hypoattenuation within the left median lobe of the prostate, of uncertain significance. A small intraprostatic fluid collection is not excluded, correlate for any signs or symptoms of prostatitis. Signed: Guillermo Eubanks Verified Date/Time: 02/06/2021 17:27:30 Reading Location: [address] Reading Room CT, [id number] 17:27:00Restaging RCC, please compare to prior. Pt in wheelchairRestaging RCC, please compare to prior. Pt in wheelchairUnlisted Reason for Exam - Click Yes and Enter Reason Below->YesUnlisted Reason for Exam->C64.1 (ICD-10-CM) - Cancer of right kidney (HCCode)Will this procedure require oral contrast?->Yes [facility] : 1960 Sex: MFINAL REPORT CT, CHEST, WITH IV CONTRAST, CT, ABDOMEN \\T\\ PELVIS, WITH IV CONTRAST HISTORY: Unlisted Reason for ExamC64.1 (ICD-10-CM) - Cancer of right kidney (HCCode) TECHNIQUE: CT of the chest, abdomen and pelvis is performed with intravenous contrast administration. This exam was performed according to our departmental dose optimization program which includesautomated exposure control, adjustment of the mA and/or kV according to patient's size and/or use ofiterative reconstructive technique. COMPARISON: CT chest abdomen pelvis [...] normal. Infiltrative right renal mass in the rightkidney extending to the right renal vein, and [...] metastasis. 4.Unchanged solid pulmonary nodules. 5.Previously noted borderline-enlarged right axillary node has resolved and was most likely reactive. 6. Ovoid 20 mm focus of hypoattenuation within the left median lobe of the prostate, of uncertain significance. A small intraprostatic fluid collection is not excluded, correlate for any signs or symptoms of prostatitis. Signed: Guillermo Eubanks Verified Date/Time: 02/06/2021 17:27:30 Reading Location: [facility] B1 C013X [facility] Consult Reading Room CT Chest with IV [id number] 17:27:00Interface, External Ris In - 02/06/2021 5:[address], CHEST, WITH IV CONTRAST, CT, ABDOMEN \\T\\ PELVIS, WITH IV CONTRAST HISTORY: Unlisted Reason for ExamC64.1 (ICD-10-CM) - Cancer of right kidney (HCCode) TECHNIQUE: CT of the chest, abdomen and pelvis is performed with intravenous contrast administration. This exam was performed according to our departmental dose optimization program which includes automated exposure control, adjustment of the mA and/or kV acc ording to patient's size and/or use of iterative [...] cm, no convincing change. A 10 mm hyperenhancingfocus in segment 2 is also unchanged (coronal [...] metastasis. 4.Unchanged solid pulmonary nodules. 5.Previously noted borderline-enlarged right axillary node has resolved and was most likely reactive. 6. Ovoid 20 mm focus of hypoattenuation within the left median lobe of the prostate, of uncertain significance. A small intraprostatic fluid collection is not excluded, correlate for any signs or symptoms of prostatitis. Signed: Guillermo Eubanksort Verified Date/Time: 02/06/2021 17:27:30 Reading Location: [address] [facility]o [facility] [id number] 17:27:00Interface, External Ris In - 02/06/2021 5:[address], CHEST, WITH IV CONTRAST, CT, [...] cm, no convincing change. A 10 mm hyperenhancingfocus in segment 2 is also unchanged (coronal [...] metastasis. 4.Unchanged solid pulmonary nodules. 5.Previously noted borderline-enlarged right axillary node has resolved and was most likely reactive. 6. Ovoid 20 mm focus of hypoattenuation within the left median lobe of the prostate, of uncertain significance. A small intraprostatic fluid collection is not excluded, correlate for any signs or symptoms of prostatitis. Signed: Guillermo Eubanks Verified Date/Time: 02/06/2021 17:27:30 Reading Location: [facility] C013X [facility] Consult [facility] [id number] 17:27:00Interface, External Ris In - 02/06/2021 5:[address], CHEST, WITH IV CONTRAST, CT, ABDOMEN \\T\\ PELVIS, WITH IV CONTRAST HISTORY: Unlisted Reason for ExamC64.1 (IC D-10-CM) - Cancer of right kidney (HCCode) TECHNIQUE: [...] cm, no convincing change. A 10 mm hyperenhancingfocus in segment 2 is also unchanged (coronal [...] metastasis. 4.Unchanged solid pulmonary nodules. 5.Previously noted borderline-enlarged right axillary node has resolved and was most likely reactive. 6. Ovoid 20 mm focus of hypoattenuation within the left median lobe of the prostate, of uncertain significance. A small intraprostatic fluid collection is not excluded, correlate for any signs or symptoms of prostatitis. Signed: Guillermo Eubanks MDReport Verified Date/Time: 02/06/2021 17:27:30 Reading Location: [facility] C013X Ortho Consult [facility]Pelvis [facility] IV [id number] 17:27:00Interface, External Ris In - 02/06/2021 5:[address], CHEST, WITH IV CONTRAST, CT, [...] cm, no convincing change. A 10 mm hyperenhancingfocus in segment 2 is also unchanged (coronal [...] metastasis. 4.Unchanged solid pulmonary nodules. 5.Previously noted borderline-enlarged right axillary node has resolved and was most likely reactive. 6. Ovoid 20 mm focus of hypoattenuation within the left median lobe of the prostate, of uncertain significance. A small intraprostatic fluid collection is not excluded, correlate for any signs or symptoms of prostatitis. Signed: Guillermo Eubanks Verified Date/Time: 02/06/2021 17:27:30 Reading Location: [facility] B1 C013X Ortho Consult [facility]Pelvis with IV [id number] 17:27:00Interface, External Ris In - 02/06/2021 5:[address], CHEST, WITH IV CONTRAST, CT, [...] cm, no convincing change. A 10 mm hyperenhancingfocus in segment 2 is also unchanged (coronal [...] metastasis. 4.Unchanged solid pulmonary nodules. 5.Previously noted borderline-enlarged right axillary node has resolved and was most likely reactive. 6. Ovoid 20 mm focus of hypoattenuation within the left median lobe of the prostate, of uncertain significance. A small intraprostatic fluid collection is not excluded, correlate for any signs or symptoms of prostatitis. Signed: Guillermo Eubanks MDReport Verified Date/Time: 02/06/2021 17:27:30 Reading Location: [address] Consult [facility] 2020-11-19 13:06:00Unlisted Reason for Exam - Click Yes and Enter Reason Below- >YesUnlisted Reason for Exam->C64.1Will this procedure require oral contrast?->[facility] : 1960 Sex: MFINAL REPORT CT of the chest, abdomen and pelvis, with contrastClinical History: Unlisted Reason for ExamC64.1 Technique: CT of the chest, abdomen and pelvis is performed with intravenous contrast administration. This exam was performed according to our departmental dose optimization program which includes automated exposure control, adjustment of the mA and/orkV according to patient's size and/or use of [...] mm subpleural nodule in the anterior right upperlobe is unchanged (image 34). Stable mild scarring in the left lower lung. Scattered tiny pulmonary nodules are unchanged. There is no new mass or consolidation. No effusion. Central airways are patent, no bronchiectasis, or bronchial wall thickening. In the periphery of right hepatic lobe, again seenis a metastatic deposit measuring approximately 3 x 1.8 cm. No new liver mass is identified. No biliary ductal dilatation, gallbladder is normal. A hypoenhancing area in the spleen is new, measuring upto 3.8 cm, somewhat wedge-shaped, most likely an [...] Smith Verified Date/Time: 11/19/2020 13:06:19 Reading Location: [address] Ortho Consult Reading Room CT, CHEST, WITH IV [id number] 13:06:00Unlisted Reason for Exam - Click Yes and Enter Reason Below->YesUnlisted Reason for Exam->C64.1[facility] : 1960 Sex: MFINAL REPORT CT of the chest, abdomen and pelvis, with contrast Clinical History: Unlisted Reason for ExamC64.1 Technique: CT of the chest, abdomen and pelvis is performed with intravenous contrast administration. This exam was performed according to our departmental dose optimization program which includes automated exposure control, adjustment of the mA and/orkV according to patient's size and/or use of [...] mm subpleural nodule in the anterior right upperlobe is unchanged (image 34). Stable mild scarring in the left lower lung. Scattered tiny pulmonary nodules are unchanged. There is no new mass or consolidation. No effusion. Central airways are patent, no bronchiectasis, or bronchial wall thickening. In the periphery of right hepatic lobe, again seenis a metastatic deposit measuring approximately 3 x 1.8 cm. No new liver mass is identified. No biliary ductal dilatation, gallbladder is normal. A hypoenhancing area in the spleen is new, measuring upto 3.8 cm, somewhat wedge-shaped, most likely an [...] [place] Verified Date/Time: 11/19/2020 13:06:19 Reading Location: [facility] C0X [facility] Consult Reading Room F-[id number] 10:57:00 Test Item Value Reference Range Interpretation Comments POC-Creatinine (test 0.8 mg/dL 0.6-1.3 : NIGEL Romero AT [facility] 0554 code = 1859) [place] [address] 0: Administration Clerk/Techni vipin ID = [id number] for FLORENCE HINSON POC-EGFR (test code 120 mL/min/1.73M2 = 1860) [place] [facility]-[id number] 10:57:00 Test Item Value Reference Range Interpretation Comments POC-Creatinine (test 0.8 mg/dL 0.6-1.3 : TESTE D AT [facility] 7200 code = 1859) [place] [id number] 0: Administration Clerk/Techni vipin ID = [id number] for FLORENCE HINSON POC-EGFR (test code 120 mL/min/1.73M2 = 1860) [place] [facility]-[id number] 10:57:00 Test Item Value Reference Range Interpretation Comments POC-Creatinine (test 0.8 mg/dL 0.6-1.3 : TESTE D AT [facility] 7200 code = 1859) [place] [address] 0: Administration Clerk/Techni vipin ID = [id number] for FLORENCE HINSON POC-EGFR (test code 120 mL/min/1.73M2 = 1860) [facility]-[id number] 10:57:00 Test Item Value Reference Range Interpretation Comments POC-CREATININE 0.8 mg/dL 0.6-1.3 : TESTED AT [facility] (BEAKER) (test [address] [facility] code = 1859) [facility] 7 7030: Administration Clerk/Techni vipin ID = [id number] for FLORENCE FLORENCE POC-EGFR 120 mL/min/1.73M2 (BEAKER) (test code = 1860) CT, [id number] 14:49:00Unlisted Reason for Exam - Click Yes and Enter Reason Below->YesUnlisted Reason for Exam->c64.1 [facility] : 1960 Sex: MFINAL REPORT [...] MDReport Verified Date/Time: 07/12/2020 14:49:15 Reading Location: [facility] C013X Ortho Consult Reading Room CT, CHEST, WITH IV [id number] 14:49:00Unlisted Reason for Exam - Click Yes and Enter Reason Below- >YesUnlisted Reason for Exam->c64.1 [facility] : 1960 Sex: MFINAL REPORT [...] MDReport Verified Date/Time: 07/12/2020 14:49:15 Reading Location: [address] Ortho Consult Reading Room [id number] 11:20:00 Test Item Value Reference Range Interpretation Comments POC-CREATININE 0.8 mg/dL 0.6-1.3 : TESTED AT [facility] ([facility]) (test [address] [facility] Keysha [facility] code = 1859) A, [facility] 7 2930: Administration Clerk/Techni vipin ID = [id number] for FLORENCE FLORENCE POC-EGFR 121 mL/min/1.73M2 ([employer]) (test code = 1860) Tissue [id number] 05:43:00 Test Item Value Reference Range Interpretation Comments Case Report (test code Surgical Pathology = 104) Report Case: [id number] Authorizing Provider: Melinda Redding MD Collected: 05/10/2020 11:54 AM Ordering Location: [address] Received: 05/10/2020 12:35 PM Service Pathologist: Ruiz Retana MD Specimen: Abdominal, peritoneal mass biopsy DIAGNOSIS (test code = h3inmZMiQNJmu4nrYIJovF 3220) FuZzEwMzNcZnRuYmpcdWMx IHtccnRmMVxlcGljOTIwMF quxzYeAEBtdXGnE2Ooakob IQqtUY5vLH8dfEvwlIKksI EpCOMgGrKyn8zdj395xMJg n1xxLJPWznekhDi9oHgzJ9 9tg0P0NfrbS75xoOFtCVgh bGFpblxmczIwIFBBUlQgQS ZEBCCLMC0PMHGXIO9OO3Kf EXQPU3SJMQmjiNPhLIXDNy UIMXMXRKqaD5IBX1jBV10H PxhwDRAvW4LSKBVTMMiZI0 IMTYYuC17FMCMOYF9tyCPd zNppooLnIOywb5CyUTxrUZ RmDG8psJpfMLGfPZ4mHBXr T1wmuM6dcwe9NrNsIQRzBd D7FBHochC0Oil6ZCMjAChd f6bdp9SgWAVyGYx9lEqpLm NsMAJnh0mjefOpBbIuMDMy QISzTMEiiKUgY475v7ipe1 qzgkKrpVU0XQBzLPS7ILsc deVxmcM5MDhqbJVsBdG6TY tccmVkMFxncmVlbjBcYmx1 USLgX668SRE5bAkgy3zpKN H7YQQvZFUqLaLhMl0hjAMo C522AHGkWWUWKRSkwCj3DB PiudLwdbAreLLDg661V136 c6anEQNyuzWpaAqYqnofh3 zsM526IDEytYCsbxPxGmYy HXXlySDqtSF7PHHrRE4gxh zwHHdeLZlcCEJpkvS6YMJc vYLsW0DsOTBwPG3jjiveQX O9ZGxdNBBnGIB4RrVtYOXo w2Wpipl2PcUxbq9eym23NH L4y2BwlFroCEP0YMX3ArDp Fk9dzLSfJHCkJS8aWzZgeF IqQPMpih82iExsVAukJYK4 MCSyppXaz6Zfj2dnYlLmrw HmK1mzU2RnBMTtLVRxHQUd TaLwwpPiw3Crl6IpaVUlyI x3z7vuXJHeMPQshUjdv1ge AUC6JBAfwRZtW4iniM6gYH FtRF4qymfff6qlYMoiKCbp SDVinJG0fxQ9LOSpbDXtT2 LalX8dVVJpWXiwZMQigsl1 TfBqNd8xdGOwkPbjZNlbHi twYWdlXHBnbmNvbnRccGdu ZGVjXHBsYWluXHBsYWluXG YwXGZzMjRccWxcbGFuZzEw MzNcaGljaFxmMVxkYmNoXG PpIRnqP8jgQhZwMtIcOjp4 IXLitDOhRNYfRig7SWErxN BxBOVXvYpvqT2jPHOegMkd aR3ywCN4FSUtvcNgmYYWxE 0aEYLZeL6mWqR4XdFvNsS0 MAX0FDCdqGJowO3= COMMENT (test code = n7ihkTSgPFIcyBN4HoHpKT 0690) Zqr7ohg9BwoMFzrYNhSCoz xHHehjWcfh99kLA9qN02HO 7xXBKiVwZ3DMLchgV3Eqi9 XJFjAVLnuWMoA583b6lqz1 zldnKqpMW6rHtxEZDxTGYp MQkjPXUmPtJdXGhhnK0wo1 exM5FdYSAgG9Nci47nHBZf sS2me9QgYSMaLBQvB66tEM KvRZTbuNGeWtvcmLD0KT9i UWRmx6S7OUXetoEoeLPgAP TatFMbHEM4qXHauVmlyuRk vx94qDOgcPSwu5KqSJBnTE E8uV2qulBrNZwswcNnUUCu DOTyC8blXQDfV3JtpHDev0 AwdG8hj2q7EgXZjW30ma1d xLH8y4JxUA8pV7OoMXU0tM OhFMLtoVZsVl2thIAmWD3z ZACak2AsJJSkIDOztY1co6 EaKTCgFVChEEM2hW0jwiVp CBcyejC2cnBzVRRff7QqiH q7RJMvl4DpNKYXGLVwmjKr ON1WL5UbMXTofLHsvNhaqE Dhs3d2cAK8nRKsqgWsh9G2 CXCpF5jhsjdnXXmejAomaS 7eaBGpOcNlQA8ilEBtMVql QZDcwbYlfm5zPZ3rQZAyii 0= CPT Code(s) (test code p9igpWLmJKFmpVI6ZeInKS = 3357) Gco0six1QsqRFsgUBvIOow jWOlydLgws10rMR7wC33VT 5bSMIeZlL5TWFbpwH6Ekz8 KFHgHHKorUUfI678x4kwx0 nlfjKgzXO0aVtgELOfYTPn YWluXGZzMjAgODgzMDUsID e2XnLwPLE8GZA7SLlkXTU1 CLINICAL HISTORY (test c2hqvTRnCTBtxMKaZeAgEZ code = 3356) CzZOOur7wuFGVbzHQpZwHw MzNcZnRuYmpcdWMxXGRlZm Nfk4oqz026kLAss4vlRFAt GoF5kFPqETFapWMsU854h2 hut8cnxcLqbPX0EIVsEVF6 QXjezqNcmgX3HRtmfAJkQb Y7FFkztmJzZUbufqXapwTn Ede5SOBsW935ELZ7qZmzb5 tzEEU8YQSfJHMeHdXkCq7f uXUtL868AICxZXBZRVUorG e5FQYwznUfhlGtgGNKn736 K620t0leCZYwdyAaeXiRfj yvg2wiE867XCGlbJUdchHd ErLfOQSptGMzvGN6ILCvPE 5mcgzrXtYiKS9rvjcgBfMv AK1diaz0UsOlLF7uujpcXr IjAHpgQWNhmuhoDPLye1Mh jeyuYS9lM3Cie3Y3tE0dyI QvRLMpoAFoLqNzDWCtui1v pLLhRCscd1PvZCW4upT9oX EknOQqTUXaPQ56Zaabj8Tw FioiKDE6LHEuyuMbb1Qtu1 muRpGualNuO7cfC9UcNXOu IVUxSVFxNtLcwtHwr8Tdb2 GgaQPxtKq8y0spCBWlSHVf nMkxr0jwUDE5BZBzR3G2cK Hqy3olHWvtHSYspSE3vssf ACbiLNYfemT1igliZEyqRS ZejFC3bbslMKorFQYvVeM3 tswlYJyrWJRqEMT4LWtge6 08WWL5DGnhBdyoKLnvDQFm bmNvbnRccGduZGVjXHBsYW luXHBsYWluXGYwXGZzMjRc xGhbaAgweM7vEvUpSoGsQB uuIO9qTJUbW3wtsPIrORJr GNWeN7isDnVpdX7kiRisUZ duwiVhEIWnJKEoIAxsIR9q TFMgxJxkuaFssEimdO6xhZ 5ccGFyfQ== SPECIMEN SOURCE (test e6zpgHQyOSFviIA8ZzGdQZ code = 3377) Hiz0abb0PkcOSgcBDbKTof jINwwkBgxx41sHX4rM01HN 4lZUGqZaQ4TGSjuzU1Yey1 HMTjBJAfpFAqR743a3lpv1 mswdUybMZ3pMlnUINeTYKh YWluXGZzMjAgUGVyaXRvbm VhbCBtYXNzXHBhcn0= GROSS DESCRIPTION (test z3qrfIXxLYRebDBcPyGbWC code = 3366) VqNHEuy7dkQZNgdVTkPvHt MzNcZnRuYmpcdWMxXGRlZm Qqf9hkf675xOKsr8teIQFo JwX4gGQlUZZpwBEpD275n1 dtu8wdvvKmwLQ1NWUqTJL3 RAosnvIznyU5SKxazGHoPd A8HLgxrjEcNUgcouWtmoLg Swc7DZWkV250CYN1mMboe8 tpGZN8GOVnYFKoDzKnNw3m xGZcG848PHRhNBMBIQXtfL t3AJTuxmXatyZafQKMn081 N711h1zuADAgamVjlPwKqm rhi9jkB927YYYeqECikmRa ApZnKCRszPNbzYY0OTKwES 0jtdvsEzJmBC7lsmvdCzTl CC3zznd3KzVrOZ7svkpxEr OwEIjgBMOuukdyLVToa2Fg rkmqHO3vK5Swn6D1aZ6joG PaZNRwkUAnJwMfDVQphx7y kFEbOZpzx7VvPDD3ovF5lO PpeYIoRSHbNB56Dryme7Bb BibzKIU1KPKuxoSto6Bip1 poWzBosyEzG4ajJ2TmJPUe YVKmOSOhJdSgapSjv2Tew9 YxjMLcfZl8v7lbOLXwMBTn eOydv5twWFA9OFEcX4C4mS Vof3qeBXedPSCtgUQ8uvxd JKlmLOLhiwC6brdpNGkrJM IgtAP9tnptBElwTFTlWyY2 lydrLFvhDNLyMCM0ZVlde0 41XIB6XQvySwxrJAosXACm bmNvbnRccGduZGVjXHBsYW luXHBsYWluXGYwXGZzMjRc bHRycGFyXHFsXHBsYWluXG YwXGZzMjBcbGFuZzEwMzNc aGljaFxmMFxkYmNoXGYwXG nlE6phMvMyLoBdFHTVXDIx pBDgMBKmyaFfo6QgNPpblh BsYWJlbGVkIHdpdGggdGhl QWExzRljegDfyoGaHN9gIX OdHEVaA7BqWAPeK85bOZCr oT4qXKOaSV9vDUIdWhFgeT tnLCldFYQkWVM5e48uyBrz W9NyVG5zLFYzaf99yVo8ZO Qvf3W6OEIdn2E4OZA0lOI1 PZ6jUJQ8nyViYH94ORawSJ 35JZeoVI4aDTRaDTcbRFUu H3WhJ5U6GF1eNPkeCETtYS OcfDKlPFwlFGP6If1jdHMg GKUmtwO4g3FwVCWudYlxm6 qqSjPioNg1bjS5sF6eITvm WYTwx4EwlGPnWOReTwLBHX IvZXcgXHBhcn0= MICROSCOPIC DESCRIPTION i4djsXTjQANkiPI6LxAyLP (test code = 3371) Drs0zsj5AxeJBkhERvWSqa rSIciqWajd70bXT2xU44AR 6aXMBkOnB8YGEyopO3Zzp0 IVEpADVmeREtQ516d0ycw2 qlkjVudWV0tNieBGXsPYJs KXvdVWCxDfEqZUFuPx9pwT VkLiBccGFyfQ== SPECIAL STUDIES (test x5cttDRaGNBnlLN1ZoTpZM code = 3376) Oyc0ncu7RyeZJuhDPdPNen bWDnhpGvnf96gNX7hA49RK 6jNQOnEyS3FJMyxsI2Wnv6 CIUxROVaeSTuM353BTVxQZ YvgSqftji8pP35HLFgrP0o wDZeIOl8CSLlyeFmgHlviO 3lThOqAwLxGtNPhKWczB77 MOTlddW8ZOCdt96wt1XyjT bhwvZgWXMoSGafW8m6KRCv ILOkGNV9b3Rqt8PfeK4lrC 1uxGzowK7guCZtcYJ4ngov y3Qsx5CkE6zvbBMfkBQfha QtBAAppzEGXK5FImWCVZ0t NEZPJMdyKO4MA8KatOEiEE ApihUaa0hnX3zcDMXyEHZ0 YY0qakDyUbWaMK4suY42o7 Drv46rc23dkC6wdREvgdXg O37hlDDrxMXpi9AjPLVegx GrjDR2ZDQhAJklsgkme2w5 tQV5zDQwkCDkvAX9eJWcpC HbCMTQsWZrVEMpa701tc7g CYMmtWRpbeQkoN4oYVzzfr nhwVOxDL9aHNTgQFRyOTKm KD08kvIhFT6naIOvj7zdft UejRQqp0UefQE8AKSzeARl zpwpJj6xSU74MSEtYWoocH 8jaSIgtaIvOV5wHO0aX2C5 eQBnCOPftsUpe7csDQzrFP 4gYXZhaWxhYmxlIGFyZSBl kkOwoHR0UIZenIZzEHJhaX EvZXgepOSfy0bcy8HgC9hs yOalvTK3CDSvU9wcrUJxvO N8FVE8hG8lSKmtcnBbFNHn b2DxMRWkFZMdViQ9gC5uBN R3BvWNtSzbRJP9XfT9ONht XJPxRW4lZKxzQCaiJ1QksV UdVLSBONIzg0zgR5zvJQGz n5VlwV7xrEP2oYAsKYWscM N9TVQaLBU7AAscpCYbFCDo ADStfAPfjCQvCr0vaTFsH2 DpT5pwxgCgiJWkrDQ1bRXd PRddkqXdUIE0EQRffZ1sXX 2kONJrzFUsAU4faZRkYMWp FVZwTTEvTVLrh3LrSEAcnc 43URAiHngjzFgpPASlAl0d Wf8qJRGglwHkVBY0OgXQKM 8ewirigHLswQzkaz7wWOgi ZVRVVLPkJPWnYPV0GAVgpY 3pFLO7tXM5OSS1U4zaZ8nh HTFynoNfGW4lYXCuaFLvuq WaLXnqDE6jxJBdFFMtd5Yw wljxIAQiTNX2PWN0EUpjKR FtUUPvJz6rHBYloA1hR2Hp SWD5rfAnr1EjEzUJlBJyhD 27oZYvqq41RATvFFHwV4Eg ZGVkIGFzIGludmVzdGlnYX Jzu26hsWJagvKod9TaeaOu XSMsT3osJKRbmFCgiMIuq1 CoqJ4obOEnoiDwGXY2jJLg GXZviB5uOUVibGhsVSFzuF 7iG7TaNPhqZr8oMSXysxxz DY4ddf08VN5ydaKuAX0xaf OpUH92ugGyUmFiYOt4AFkR TSbCYFh2TEApmtFvnMQcwZ AeCWFouN9jsQNwLg0ycRDf aWdoIGNvbXBsZXhpdHkgY2 hucdcmEHkvqTRgb0SftR1n mVC9CEG3qY4oYwzjBGG0 Gross assessment was [facility] performed at ([facility], = 2777) Department of Pathology, [address] [place] [address], Technical component was [facility] performed at ([facility], = 2778) Department of Pathology, [address] [place] [address], Professional component [facility] was performed at ([facility], code = 9538) Department of Pathology, [address] [place] [address], [facility] [id number] 05:43:00 Test Item Value Reference Range Interpretation Comments Case Report (test code Surgical Pathology = 104) Report Case: [id number] Authorizing Provider: Melinda Redding MD Collected: 05/10/2020 11:54 AM Ordering Location: [address] Received: 05/10/2020 12:35 PM Service Pathologist: Ruiz Retana MD Specimen: Abdominal, peritoneal mass biopsy DIAGNOSIS (test code = [id number] 3220) FuZzEwMzNcZnRuYmpcdWMx IHtccnRmMVxlcGljOTIwMF zfyuWqHWUbuBQfY4Dxkjto ZEohSX4bSM9ksWyepDCfpE SsHUFnPmKyu7bvl840lLAr r7imJDBQchssqCb9kYxwP0 6aw0Z6LfrqR72wxALvDZee bGFpblxmczIwIFBBUlQgQS LHOSXQGB9EURZJFU0VK1Is NBJNU1ABKLomjOVhEJYRHm DOELSSNYzkA7GAG2qPG58G FnphWDKrF0JDRTWLOWbZT5 ZZOEKnI15UPBNKKH9bmTYh xOhdvwRoGVkjq5HxFVtkPU RiOD3uuEtyMXXjSI4gVAWp Q0rugN4ybgi5MqKbXAUoSc G5SOWdkiH9Jpa5JFWbWFgg r5dch4JoDXUfFHc8yYdfVf RvEPUqk7ejdyBrWbNuVGLg HYVyGLZtpEUwC514m7caq3 nlmyOyhSP2GDFtTZG1UMyq doHdgnQ7EWsmtTDtUpG5ZH tccmVkMFxncmVlbjBcYmx1 UHAeC475UKB8rYxnk9kbED Q7JOPkSQOgGyJeYs3fqLFr J778JDHsKMPCRBMwoFj5FP FofvGpaeOciFSIz571K258 m4orKVYfknWqvTnFoisgh3 yxS626OOIyuOMhtmZcBjCg CSLpzGTubLM1OJHiTP8vcy djXHfjNGgnCPJlpyJ0OKHy fDJnB8YhFPHpBI3errnhSH J7UUbmZTUkRKT2IkCsFOFb r4Zcobr4PmXtfs4mil26DM U4n6SjcMzpZKE4ZNM9ZnGt Qg7qbMMgQRVcPI3rXdUnqG JzMGGrpb02tFrqVHbyWDH7 UFXunpPnu1Unw7zpLdMjwl DvB0unT9HmGQPhVQDwNVQa ZdNsjlIbs1Mcv4EinWGywC g5m9kcDVRwNEXfpQruc4cm LWB1IOErcWLkR3hinS7tZJ XhOG8mbsvla8joNVlwMXnh RUYxkQX4ckI2NYQsdXWdY1 FnqH0lUJPiDOadFYUtzdg5 IoJdCo8oeTIcaLncCWohBo twYWdlXHBnbmNvbnRccGdu ZGVjXHBsYWluXHBsYWluXG YwXGZzMjRccWxcbGFuZzEw MzNcaGljaFxmMVxkYmNoXG TqJYmyI5ogVeTtMyQnCdx0 IJEykOGrAPIwNxd4GXSpkF BcQYQDwEzseA4vLMHiyLtw rP7jiYL4OOTgnmViaXNEaM 2gCTMRuO7hHbW9WcIrSwH5 GAX2XCJazNVfzF8= COMMENT (test code = s6djuYMqXURcrUE1BzOlXV 8419) Heg0iwr6OnpJWprLNvBRas uGAmdbGkxd63nGA9vQ01QX 1sUGYfDtJ2XENwkdP3Qpk3 AXNdYGGqbHCyP488v5riw1 nryyXskCX5bFjiEKSuIZWi BBgcRGYiLlPdFUysbJ0tw2 suF4AyHRMfH3Nbb29dWUMw nS6gf1HeKGXgFQFdN67xJL OlCEVnjLMjLvggdER5WY6c XGZst0X6ZRNkguUvkIHxEE BziWQkJPR2dOLjqFbupsYw jl47gQOaiQJwe2KlDXZhWD I5aB6atcSbZYzwgjXdMVBm MQUvV3yyFUCyL1OisDTha9 EmyD3ii8w5PsPAgC83vo5l gWT8y3RvMG9gY3DcPGY9tB ZvYGUmqHPyXe3rbSIcBD6m VCZkt3WjJNVvJPUavF1is3 GuCVGbGZYcBUG6dD9xcyYz KYremvQ4daGiQLJon1MbdI d7LOYex7LpQQVISTRhooMo ZH6AX4WyCZJuuDLyqFefrV Nrb8q5hPP4oZHazdRzn2O1 JTJyI7ovlcscIPywtUpfvR 3kqIDxXwGuXI0muGUmEQgf ZESpsbTeaw5pYU3uPBLjoy 0= CPT Code(s) (test code x6vhcPYoFLUzmXL5JeKdRX = 3357) Xzq3ahk7GqyHBcsZTuPTlg jXByeoKddl55xSJ2vB55FO 1aZYPpByH8IFCknsP3Htk5 VJTlGZKchJGsB340u5lzx7 pbrkPlcTR4bZbaRGKdJKIh YWluXGZzMjAgODgzMDUsID v0WhAdRQF8QRT9VNpzRDE4 CLINICAL HISTORY (test l0fcjAUkWPSsnJQfAfCeTT code = 3356) PaLYHqw3tfMINwgHBjWkMr MzNcZnRuYmpcdWMxXGRlZm Dxz1rmo808fVQkg3xgJYOk WjP7zWZdPDLwkRCiS932m8 osd1bbssXmyXG1YKVaWWG9 BBrskvUnjcT3FBoruHLcKs Z3JIffkwAwZSfgidCcqnHe Sic3MFQsY887YGI8uAkzi4 rkQTM0VLRbHSIxByWrCf4o tWZyD950EHXjUTQDHLAkgU s4LIIfksRanhMkyDKFm429 H866l8dfUUDrvxLzlTjQyk mrr4psF883AEVvvKDcjbDa CfRbGLQbqQDpqNQ2RCJiSG 5fbsweHxXiZN6tnptmWtAz SY2lxir0XpAbEU8lcorrEa SrXVofCWVgvsbbVSQll6Mm tfbtPN1yK5Vnh1U8xG3lcN TjKENroNZjFqMtFZGyym7q zZSfLYvpd7UcHVY9pkA8cT LjgNUxKILxJU59Elavn8Qc YgchDQD0GXIfcwOsx8Obf8 xxSuModzOcQ8jvC8DrESTp ECQhMPGqZpVzdxGrl3Nbq5 WplCGbaRg3r3ywYRNlKBXg hPczl6jgYDL7WTCeQ7N3sE Jcn6yvYOxkICQgbQF1rqks OCybQFCkawW4stidFKhiWZ UqcGR1rblyTFzlTTClElF0 hfeiEByxQCQsJKK1DHnbh6 28GER0TFgkAeqwHIttUOLo bmNvbnRccGduZGVjXHBsYW luXHBsYWluXGYwXGZzMjRc yXhpvVlonN8eDtMjNjMpNN ybTH4aVRGgQ1mepDOiIBTh JVPaF8odFiQmjI4exMhdYI xfmsEuJYVjZRHdDHfgDL4z GQXslVuwrnAgkMhjqD8zpF 5ccGFyfQ== SPECIMEN SOURCE (test i9ypzDOtIBEthAJ7NrShTY code = 3377) Rfm0zxh0KazHYgzKDhCWvz jEIsulXvoj38yBF8vE50NT 1xAWKlTxN0BSBxizR8Zlz4 THYlBLSkuYOtW407k1dmy3 qbjlKmjQW8xTyeFEGsEFCd YWluXGZzMjAgUGVyaXRvbm VhbCBtYXNzXHBhcn0= GROSS DESCRIPTION (test m8ocyQOxDLYmqBPvFdNxIY code = 3366) VaDJHrj9mlRHLjpMNdBfCc MzNcZnRuYmpcdWMxXGRlZm Hla0kgo314kOCgk6vzBXFb NcT4pTWmFLJysYDgY267t9 jml0wmonAqwVX1TSTbNZX2 SIbflvPqyxT5DAhpoXEiUc G5AQknnzBiGGmgefAnzlRv Qog7NBJtM186ZCG0tUhzf9 hsOZR8DFDoEONxKvWpPl6y zZHmX404PWTqYLEUIVFknP y3GTFipnYrtwGhaBWIo782 E245q9qbMUKajpKwxIbEau nar2hdL691CTDpzAAxuzRq NoEjOHIjyUJxlHO6JTFgKP 1piaxnClQbTG8pfbljYrYh OP1wrnw9SbDiAI9sybzbAm AePHghQBKpavzdBWLwu9He axvkYB4mG9Jfw3V0nM7vzY XgOYAuyYDaNaEzDWIojk4p sHYjPCmos3RpZOV6pnH0bT OjvCZcWHCdTT68Dzqxg4Kv TopgDSK4IVCuqqPld5Usc3 weVsJtjuLxN7tvY4OxQKIm EQMyYMDhKcQluyNrp7Nou4 EldGZneMj0v8ysIGXrISYb jQrho5mkQNU7XVVuC7G0aJ Osc0qlQQhoUKJbeLX9ycyd HWayARPefwI2bwjqPXweXX GlkVZ0qoijQHpnAAJfWoJ7 vvnbLWzbDNXpZUN2CLpti4 85SXP2SOowEdwdILtuBWCq bmNvbnRccGduZGVjXHBsYW luXHBsYWluXGYwXGZzMjRc bHRycGFyXHFsXHBsYWluXG YwXGZzMjBcbGFuZzEwMzNc aGljaFxmMFxkYmNoXGYwXG ycQ7gsXgIqVjNeRUNEUJRa yGYtTBMajvQpf7JhXWxupv BsYWJlbGVkIHdpdGggdGhl LHSroHpmnmZwrrDgRV8eFZ YpMRIdD3PlKGYdI47iLHWj pT5jSJRrSU4fQVXcPmVcgQ ldJSlrFFOnAHU2o30fgZse J4SfAK1gXSPfnj51eLn8FC Rsy9D0IXUfe1M3ENK3hCX9 ZG4xLIY4tmVoQF53ABsjGF 05SLosJC4nMVLgZStbPZBt X0MtP6O5HU6gBAilKJCbWO AagOIpSXbtUIJ8Jo8fhWBv RXQlspQ4v3FxPNQzgUroh0 wfAmMoyVe0mhV0gX3dPPff RZNqe3IorIAsVZKfQqXVCZ IvZXcgXHBhcn0= MICROSCOPIC DESCRIPTION g4zbsVNbTSEzsJI3JeNyDX (test code = 3371) Qwp9gpn2PrkXDzuTCcKXas gDTllgCsvi10zTW7lX43TU 8fCYNxLoY5FHPmejR5Flc6 GEWhBGMbhZShA629b4dqf3 nyjdJnaXK8yCilCBMcAMVr UWqoBNVrUnGmRJNbWk6dtE VkLiBccGFyfQ== SPECIAL STUDIES (test s7dakAHqEOXbdNK6DcVxKB code = 3376) Bdg3eiw0BniSEbnFYwULeh dXHxvdGtwq15uNW0gM66LE 5lZWLaTtO1HUPsceZ3Hln7 JWLdSXQkoMWoA081FNGnNH HkyHrkchm9dJ63AHExhV3x oUNwADf1NUKugpKfmNuxfV 6tVxNdLqXzDfCAsTEggX90 UXBoagH0SBIpj83uv8DzbZ vfgvGeADZeZAfxC3z1RRJv NIVcHZU2s6Ssz5DcvM8bhC 3okGlrgD1qzBCiqBJ0fhyu p2Tdw9NxB9hrfZRbaPZhcs OaQVHrvbYIAV9LKoRNVR6v BNURIPgcZQ7AC0VtuJGjCW EpfdFbf9gqT8jyLDOgWHA3 FY7nwwDiQiPtYV3deM18x5 Cnw99bw11clU1gqDIesuEu K77miOMedKIri9AcSBTiof LzrNM6EMMvJXilwqkgx8g7 cYA2kAZfbPVgzPK6mIKhyN NjZAAFpKDpEAPup136zp7z HVAlwHYkscLkzE6uULavcx iqhDNxNS6wVIOzGFOaHMHl VK63mkZfKH2vhNYlx9bkai PoiNLoi6EpwZJ5REFglQHq kgxaJz3nJW99GEVoDIdmdK 5naGJbibHkHW6bBV4aA6G3 zGRrKVDivkFqk7ruVAikEE 4gYXZhaWxhYmxlIGFyZSBl tpHqmLX2BCIufQYwNMKozA OwIJmmmOLnf8noi6LoO2jq tMxhwNY5MJYxQ1ihbHLpaP S7PAQ8eQ1qCKxhqkStHHBg m2ScSSAbNKPlPyC4qM9fEP R9JxXCkPvaRNY2UkE4TDkm BFOdQD7vZFtbOUggG6LynK CkGPWQWMVdy7ebF0faIEGc g2NrbQ4stVL2fSNyHQOmiR H8TBAlGYI2GAixtZFePQAu UGJaqSXlkRAxFk2qvBJiO8 YqS6ssikLkxUOhbHB1tZSe CTkafaRcNHL1EAUctD1lLQ 8mQMByzNXjCX8htNJcQKTx FUAaGKNpAKWxz3DaVVLvst 19YWNkPtpmsLzkXPQpBn8t Qn9dOESbclPmLTW4WeZUHQ 3wboxoeCWgqMzcgb4jDPuv BKRXXYGtBXNqUFG5LMPhsR 2tPZG0wSQ0VJM7Y0wyQ4vj CKEmdpUtRZ9wXQPewLGafq FeLGjbDN7fnPCsKJEer4Ql pvmfLJJoGCH1VAZ6ZZxqON QgFFJfFg4sJIHrgR1oD4Pc SIW0fmVyo8HpSfOYcLLngQ 96hWDdat37UZXfVHTvO7Bi ZGVkIGFzIGludmVzdGlnYX Elz92aiKBuaoRcd5ZqnkUs QJXcH3nbGGLzpIWdwHMsi6 FnrX5zsTUytkNxIJL8rAYt ETQyiI5dRGUhwXfzUXUdzQ 1hZ3OxUAldOj3dNEBiwmgd QE7iyz37SG3naqIcRK3lcr UfVF39hgTyIgPiMFi8QWiM CIkKBXx3PXGyveJosEBpcA JyAJZzyN8bsEBbZl2roTZv aWdoIGNvbXBsZXhpdHkgY2 ggdfgoPOczpVWdt1EtiD1d vDY8YED3eG2jZzkxIPU4 Gross assessment was [facility] performed at ([facility], = 2777) Department of Pathology, [address] [place] [address], Technical component was [facility] performed at ([facility], = 2778) Department of Pathology, [address] [place] [address], Professional component [facility] was performed at ([facility], code = 2779) Department of Pathology, [address] [place] [address], [facility] [id number] 05:43:00 Test Item Value Reference Range Interpretation Comments Case Report (test code Surgical Pathology = 104) Report Case: [id number] Authorizing Provider: Melinda Redding MD Collected: 05/10/2020 11:54 AM Ordering Location: [address] Received: 05/10/2020 12:35 PM Service Pathologist: Ruiz Retana MD Specimen: Abdominal, peritoneal mass biopsy DIAGNOSIS (test code = l3jxyLPyBUDns9quUDYidA 3220) FuZzEwMzNcZnRuYmpcdWMx IHtccnRmMVxlcGljOTIwMF tbkyZwAKXkaTHzB9Cdoghs HDjnXY7kHA2hyZftyDRrlN TiFPBpXsHos6ahu043yFSa q4ufDDVUxpnznSa9fFruF4 1oi5F7JwydV61daVBsOCke bGFpblxmczIwIFBBUlQgQS JIESQGAT2YLYYCTI1FA8Ln MXCLL0WUXNxrtZRzRNTNMy RQWRHWSPwpP3RLR7xHJ83B SwrpKVWyI5HPCECYAPrHQ1 YKTIDiW98ODJVLBV5knVWk nQvwjtJbMDinw3OrAMkkJT PrUD7zoJykITCsMB8nOORd M6yguJ6jakl1BiFiPXHqWa K5QUQaiuQ7Fmy5JLOjEGlh z7lph4JrNMMrGTr3rBqsSy RkOWPca8kjbfQkBzEfNGGo GIGvSQAtuBYcX660q3hni2 bvdmEvoSY2MWBuSEG1AEqs usOechX2KBgtdBUpDxP7IL tccmVkMFxncmVlbjBcYmx1 XSQkL244DGV7iDgji3wrZP B7KFWnOMFxGbApJl0xyNUh H649QBLaWLSAYOFoaGk3JI WirzRkenVmsFTWi919U207 a2oqKHDluhHksDtQvxtfo0 cxI679QNEbzXAyxoPoPhXg KWLjySIztIO8XBDhIH7kib bkZCqlXEoyCOTwhzI9EVAt bBDhS9BgJAZyHQ6pvcgdXX G1OImyFFMzWTG6KxIoMJVh c5Msqmm6CyMwpu1kqq94JI T1a3OmaEvmBUW8KCT1YcVu Hq0gaOFzRRQtTF0kKpQwfT HqPLSypc69aUlbOKbiKEM9 CNAgumRwu2Vef2xsIvUshe JwS1xkJ1LxLVDbFYTcOIUl AhUytvRvp0Wdc8BnsQWsaI l6u3hzTTTbCXGciWrsm6zv JQW0EYTjqKLnO4vkzI7hOP GaNW2zywjcd0qcVFmfKWdc XVUsmHP6dmP9BDFjjMDiV3 InrA4uZFWmDGhdCHIbpxu5 IfLmWn5ddDYtuIxqJDduQv twYWdlXHBnbmNvbnRccGdu ZGVjXHBsYWluXHBsYWluXG YwXGZzMjRccWxcbGFuZzEw MzNcaGljaFxmMVxkYmNoXG IjYKszK5yuRoPlWsDwRkt1 XRRauCNjYDKjSmf7MGWsyE ZaBHFNrQwyzG3vJWQixGbi vB3vyZT6DORjvwLudHQUtG 8cIRWCoL2pBxE5MtRfYsF0 RBP7HKOiaZYmnE5= COMMENT (test code = p8mgvONnWUCgjOF5YkXpAF 3350) Qsu9kgt1SgiNAvlGXeMDus mZMhwnKkaq76eAH4jF52MM 1wBEQoSyQ6YTAmwvD5Byn0 RLDiGQUpqJAsU248e8pwc7 ustkUcoXN6tNxhGUUtNGPl QOhgMYNlFwGcJExsjB4zv3 foP7TkEJIcW7Rxr36wTDQo bC8lo0SwERVnUWYlQ24zQU DlYQWxbWEiFrjtmXE5MX2t EKIen3G5QNAgazMiwFGaXJ HezQZzWSM8iNQtjRbqrqCu qh55oUEvnNPpm9CmLWGvAV K1uN7cdxLgDClvawYbTEGw BOPsS3uhQNXyM1RtvFPbg9 SpoU8pf2i3UqCBxF17vr2o rXB8k0RnJF2eT9InELG7kP UvLALjpERdVr1ggNUiOS4t HDLnl6VbDNMjWSHhyN0jh4 NxHQEqWVPjVIF3dL3yxbYn MIextfQ4tjKcPNXxp4UjmQ b8BLJkd9ZsDTVPIEIhweIt RL6DD8AcYADnsUZrzMcisG Bwx7n5sJW2uQWlikQcs7Q5 DHQyH4fumrukRHlvnDluaN 2qlNMgWaHbHQ6swIEjNWjq GBFrlsWpzg4gNS9bRQLevt 0= CPT Code(s) (test code z1amoZNqDZCxxDM9JnHpHT = 3357) Hxi5iml1BmxXXstEPiXDpa wGKqpvKnug13rND6oL70ER 4hGPKgUjY6BWLfvzP1Hig8 UEHaDBOhsLFeX477l5gix4 qmopMzjYK4sShiJHPrPPDg YWluXGZzMjAgODgzMDUsID e7UqLzHUP4NMK9GZypAAF0 CLINICAL HISTORY (test u4ncwPRhTEIbrNDhLwOgPN code = 3356) LkOLGql3jhYIJazAJiNwPs MzNcZnRuYmpcdWMxXGRlZm Vpp0kyh043tXKzb2gkCDTf GqI6aDEmOLUrjKQhD906e3 sqa0przzSceHI7JKTcDZB3 PKzwkdGqxbT0SFulnVNsOe F1EEnthlYxEJixvbOggmTi Upr3WUZgH047JTX6gGyvm5 ofFEJ2NSJgLKQmKjMsJm1c rOKhI278CFAyJIDNDXFegD a0CZQmnsObbpBvoRPFc842 U093n1pqACYahnIkvBmUph fvp9ssQ530ONLprBIdhfQp XwMeBGSpvOOvbSO4VJFaZI 9blpcuTrCtZZ0xzhrbYpNi NQ6uwfw1XyKeAT6awdxjYg IbGQdoDJFtqycpRKRzh5Le qlboIN1tM5Vic3U7uP5lgM NeGKGciYPlHaXrSMOrkf3q fYUwXXeay4BnOSQ6dtX4lO AgtZXbEPKlCJ91Qctrh0Zu ZmerJFU5XPSknwYck9Gau8 ecHnUcnuNhF3yrZ7FnBHBm AWPcKGQoUzUnegSjb4Kes2 BdiUOgaKk2j8juLRDbTWFn lNsus0wwMMM4ISFiT6R4aZ Oas7mmFIhmNKDxlDP7dzmz YOagMFZancQ6pqbqBTdvVC YwbXZ4yvzmIJgtITFzEqQ4 dibfDUttXSDsVXR1VMrsx4 68BNX9LOnzWbylESnmLFJu bmNvbnRccGduZGVjXHBsYW luXHBsYWluXGYwXGZzMjRc yTllqAarxK1jWvJhXqHaBZ usBD7eHMNsL9ejyDChGHLv KCAyW0weClLjxH3ilMtgRU xhonScODHwASJsXZwiUV1w WEHzoJnyszYpiDggaU7rhS 5ccGFyfQ== SPECIMEN SOURCE (test n0betGXcYWGmpIJ0RbVxDS code = 3377) Iko7igu0ZakADogYKpXShw tLCejeUmhz50lWE1lC99KW 8bTTSfLoL5FSAuamB8Nub6 RWFeMZDixXTmT772h5sxf6 ywqdVvbMB6kLvgXGBqTCQy YWluXGZzMjAgUGVyaXRvbm VhbCBtYXNzXHBhcn0= GROSS DESCRIPTION (test x6kcvODgPJGarQBhMzHgPO code = 3366) KvEAXtl3fmLRTbuRYxYvCf MzNcZnRuYmpcdWMxXGRlZm Xws6otf715mOZec3egAVWw ZhV5yRRaGSAvvKByE810e1 xbj3gbhzJyyUM2AVHvMXH4 VCombbJvlbH8GAtmzPDcPv E4OUnyltQfMPtjtnNsprPj Dul6VXFqH708KAD1mCdvi8 tyCVV7YEAcMPByDfEvHv5u cIJrI649MEDcYGIODRQntY h3JCPureHzedZovJCZv694 V539l1ynFUIyrdDlsQsWhx hyz2jpA936HGHkwTSwmjXa ExKuXZCcoNTwaLS9XNLvYR 2hmwqoMcPsJP6stxrxTcPw TM0uhmt8WgDoMA5wvasnPq ZrREezATGgyvhnXLRmy2Nj mwwvRX7fY8Vuh4P7gS2maG HbZYYudTTaCbGwZQYlfz2z oPJhSAsle9CmNOQ5bsI2tE EwsHAaPWYmDO30Dmkqn6Hz BzkhFVF7SUXbxyTtw3Cxt2 syDqWhbfTbE0hpX1BjYORy BKFeVPQoOkCcisKqi0Ipc0 PtjHSboIw9j5mlTNCgIHVx mCrcd8ldVHF3SNUaJ4A0uA Mup9xhEOqnZLRutDN9cydw TTwwYBBascW1gjdyMHakXT ZcgVQ2lbmgZQhiMKXrJhR8 xezgACwmZTKwPTF0PHapo7 04SRE6RSueWxgwUIdmNEWu bmNvbnRccGduZGVjXHBsYW luXHBsYWluXGYwXGZzMjRc bHRycGFyXHFsXHBsYWluXG YwXGZzMjBcbGFuZzEwMzNc aGljaFxmMFxkYmNoXGYwXG tcP5eaGjRwErVyGKDOGIXi fPHcOEUwmpEfy5RzHWgxlv BsYWJlbGVkIHdpdGggdGhl QUMaxWshwlMpmwKvVT4rGW WmZEPfL1UfQVRmZ33oWUSp xR9oBFPuHS1aIPWdTdRzfM tdBEkyDFOjHOW4w86tbIbh P6QoXJ2yZYDyqa69pRu4XQ Npx6O5DSRru3N7TMV7eJB8 JJ7nPDA8ftEbDM35MEarTS 74VOedCB1fLGCpEOvmBRZm K5EgE9V0EG9iSHwgRVSmQM ZkoIGrIUihTFH0Ma8wtRUn CZLzjvV2x6HvSDEzwTlej3 kqYgSuoEw8lxR7oO8eUCtc ATAsm9GgkTZlQDAaAdCDLN IvZXcgXHBhcn0= MICROSCOPIC DESCRIPTION t9lyuNLxDXOymWH3KoZrSH (test code = 3371) Upj4qih0SgeYAbnBHeMIkv uGGnmbBwhm78mUB3dM27NN 0lIQUgXmU5XFVcdyJ0Bqq7 BAShZSHodHPiC120o5nzq1 czcqVrxIQ8yOpvUFYhTFQp BQotYPPmSvKfBCDsEz0tlT VkLiBccGFyfQ== SPECIAL STUDIES (test w8qcmPEcZVXerZY1TvQqRR code = 3376) Lmz9iio1IzxWEwwYWfEKhv hCXfgmOoek42mAS4pN77RH 6cVTKbVhV6HNXhktP7Mll4 GRPrJISicBOuW923BSOyGX JsqAgvtzd9gY36IQPefV8y xXWlOXw3CVHjzvFinTsneI 8vPbIbIpVxHdGFsVQqzJ73 RVEhgeW3AJRbm28zv8CatK hsbhQvUGTjEEsxC9c9YKZz KSEeOMS6l4Mrh6HbcJ6urO 1pxWrgrT2wvMHrxWM8bakp p5Exz3WkI4ndkUGpdTQcxi OsMXTjewHUGW7KMwJWLD7v OEWGKBmtLQ4YL7QivDUbXY DbuiTpf5ylT7dbTPVuZSU2 YH4knzRhFuPaSB0hkL52m0 Roz10eg13tzB0enEIezjAw D99czTYnaSOiv5CqDJHoav YgiFL0RGUsEUclgmnxu6t0 kNP6jSEinHHfcYO4aSRxeC IaTTBJgLRmNDGti116bd0k OXNabTFkizYdiI4aPXisnm tjrTWsVC0lUYOrWVKmYRKa HV75yhXvWS4zxRYjp4afqq ZqhEXha6XzoKS4BYBouGSg byzoUs4yFI20SASwJJdxeR 3lwHJmysPrII7nDR4vE5T0 jPOtXUOibcYsa9cqCCjzWH 4gYXZhaWxhYmxlIGFyZSBl bxPcyGL5EWHpnJVtTZTyaE XiPCctpQQml3jru8LrS4zi rUbmhGV1YJBfF1zlrXBxpA P7GIT9mI4dKEcqnzQzSYPr f0KiYTKgRPUbGcI5eM5aLJ H5VjJMxGhhVBH5ZvK7QFrk GVXhWO4sXFjiJJvtI5HwiM MxDLOYESTzo3gsL6fbPVHw w3WnfG4ftQD1kGCvABQaqA V3SQOyZHZ3VBddpEAwBZUs RJIbrCOsrPWkAs2xxHFaT0 UrH2kxcwZbkUNspGL1oVMe TUsairYoBLZ5FMHlxL4dGF 2nWJAkrQDfFE0ohEZdTJTj DZIdFMUwOIErd2AqQGEoqg 10GWOnDyasdAylOFSqQc9n Rg9mTGYewkBtIGT5DsEMVB 8ewqemfBXceWectz9nHDti DBJKOEDuMQKxXWD7FYDjsI 1fYQA4eJL0JKV5B2paB1vn YGHckfVnVO2pVRGraUAaqg SpYYflLC9qpNGtDPJqp0Er kivoASUlCHK6ZLW3LCeyVV WdZXItIi1tCMGcjH5kD9Ar WWN4vzSym9GaJcEHwUTsgL 78rIQdot65WHGhGIBzM1Nc ZGVkIGFzIGludmVzdGlnYX Mbi62ytULahiUdk8WnbfEv DYGvT2mvJLHlnUMhlIGxs8 OiaQ4onPIwbnSrLBC0lXWq BURptJ5oHKVssKmgILFbxI 8pS2PaUOnrRu8lERXyyzfg CY0heb84AT4xftIhMX3pji SkWY30nwNnIlJsJFm9LXhL VTuICYe4NCOevlHujQIhgY BuTYMdmI0omKUkXs3wwOJq aWdoIGNvbXBsZXhpdHkgY2 cbaobyBOnqtJKkh5KpzU3i qYA7TGW3lK5iJgisDLX4 Gross assessment was [facility] performed at ([facility], = 2777) Department of Pathology, [address] [place] [address], Technical component was [facility] performed at ([facility], = 2778) Department of Pathology, [address] [place] [id number], Professional component [facility] was performed at ([facility], code = 2779) Department of Pathology, [address] [place] [address], [facility] [id number] 05:43:00Surgical Pathology Report Case: [id number] Authorizing Provider: Melinda Redding MD Collected: 05/10/2020 11:54 AM Ordering Location: [address] Received: 05/10/2020 12:35 PM Service Pathologist: Ruiz Retana MD Specimen: Abdominal, peritoneal mass biopsy PART A PERITONEALMASS, BIOSPY:RENAL CELL CARCINOMA.SEE DIAGNOSTIC COMMENT. Signing Pathologist Direct Phone Line: [phone] signed by Ruiz Retana MD on 05/15/2020 at 5:43 AMHistological sections demonstrate a core needle biopsy of tissue involved by partially necrotic tumor. The tumor cells have a clear cell morphology. Immunohistochemical studies performed on block A1 demonstrate the tumor cells to be positive for PAX8 and AMACR, compatible with the reported clinical history of renal cell carcinoma. [address], [address], 86721Wqoym is no patient history.Peritoneal massReceived in formalin [...] areevaluated Immunohistochemistry technical testing was performed at [facility], Pathology Laboratory where it was developed [...] qualified to perform high complexity clinical laboratory testing.[facility], Department of Pathology, [address] [place] [address], [facility] [facility], Department of Pathology, [address] [place] [address], [address] [facility], Department of Pathology, [address] [place] [address], PS, BIOPSY, [id number] 18:04:00Reason for exam:- >peritoneal mass biopsy, h/o RCCFINAL REPORT CT- guided core biopsy dated 05/10/2020 Name of practitioner performing procedure:Laura Hannah M.D. Names of sales service assistant:None Procedure: CT-guided biopsy of omental massPreprocedure [...] MDReport Verified Date/Time: 05/10/2020 18:04:09 Reading Location: [address] Body Reading Room CT biopsy [id number] 18:04:00Interface, External Ris In - 05/10/2020 6:[address]-guided core biopsy dated 05/10/2020 Name of practitioner performing procedure:Laura Hannah M.D. Names of sales service assistant:None Procedure: CT-guided biopsy of omental mass [...] Hannah Verified Date/Time: 05/10/2020 18:04:09 Reading Location: [address] [facility] 18:04:00Interface, External Ris In - 05/10/2020 6:[address]-guided core biopsy dated 05/10/2020 Name of practitioner performing procedure:Lauar Hannah M.D. Names of sales service assistant:None Procedure: CT-guided biopsy of omental mass [...] Hannah Verified Date/Time: 05/10/2020 18:04:09 Reading Location: [address] [facility] [id number] 18:04:00Interface, External Ris In - 05/10/2020 6:[address]-guided core biopsy dated 05/10/2020 Name of practitioner performing procedure:Laura Hannah M.D. Names of sales service assistant:None Procedure: CT-guided biopsy of omental mass [...] MDReport Verified Date/Time: 05/10/2020 18:04:09 Reading Location: [facility] C013Y CT Body Reading [facility]Asymptomatic ONLY)2020-05-10 08:23:00 Test Item Value Reference Range Interpretation Comments SARS-COV2/RT-PCR Negative Not Detected, (test code = Negative, See 88701-7) external report for linked test SARS-COV-2 [facility] PERFORM[facility] (test code = 84582-5) MATT (test code = Negative result for [...] of the Act. Fact Sheet for Healthcare Providers:https://www.[employer]/sites/default/f alber/product/documents/F act_Sheet_HC_Providers_L wmc_SNQY-HiL-4.pdf Fact Sheet for Healthcare Patients:https://www.[employer]/sites/default/fi les/product/documents/Fa ct_Sheet_Patients_Lyra_S ARS-CoV-2.pdf Performing Laboratory:[facility] [place] [address] [facility] (Asymptomatic ONLY)2020-05-10 08:23:00 Test Item Value Reference Range Interpretation Comments SARS-COV2/RT-PCR Negative Not Detected, (test code = Negative, See 24821-3) external report for linked test SARS-COV-2 [facility] PERFORM[facility] (test code = 30769-6) MATT (test code = Negative result for [...] of the Act. Fact Sheet for Healthcare Providers:https://www.[employer]/sites/default/f alber/product/documents/F act_Sheet_HC_Providers_L bsw_XJIT-QuQ-9.pdf Fact Sheet for Healthcare Patients:https://www.[employer]/sites/default/fi les/product/documents/Fa ct_Sheet_Patients_Lyra_S ARS-CoV-2.pdf Performing Laboratory:[facility] [place] [address] [facility]ARS[facility] (Asymptomatic ONLY)2020-05-10 08:23:00 Test Item Value Reference Range Interpretation Comments SARS-COV2/RT-PCR Negative Not Detected, (test code = Negative, See 36645-2) external report for linked test SARS-COV-2 [facility] PERFORM[facility] (test code = 66900-4) MATT (test code = Negative result for [...] of the Act. Fact Sheet for Healthcare Providers:https://www.[employer] idel.[employer]/sites/default/f alber/product/documents/F act_Sheet_HC_Providers_L wio_JNDI-MtB-2.pdf Fact Sheet for Healthcare Patients:https://www.rey del.com/sites/default/fi les/product/documents/Fa ct_Sheet_Patients_Lyra_S ARS-CoV-2.pdf Performing Laboratory:[facility] [address] [facility]ARS-[facility]OV2/[facility] ([facility])2020-05-10 08:23:00 Test Item Value Reference Range Interpretation Comments SARS-COV2/RT-PCR (test Negative Not Detected, Negative, code = 5845776) See external report for linked test SARS-COV-2 PERFORMING LAB [facility]DRINA (test code = 4978803) Negative result for this test determines that [...] 564(g) of the Act.Fact Sheet for Healthcare Providers:https://www.Health Options Worldwideidel.com/sites/default/files/product/documents/Fact_Shee s_ID_Yklhdixph_Ocjm_ALYM-ZrS-7.pdfFact Sheet for Healthcare Patients:https://www.Health Options Worldwideidel.com/sites/default/files/product/ documents/Bvcc_Mjzia_Cbitsngr_Ffge_FTYH-SwG-8.pdfPerforming Laboratory:[facility], [place] [address]Ztoltcvnrmk time/INR 2020-05-10 04:37:00 Test Item Value Reference [...] valves. Lab Interpretation Abnormal (test code = 00507-9) [facility] HospitalProthrombin time/[id number] 04:37:00 Test Item Value Reference Interpretation Comments [...] valves. Lab Interpretation Abnormal (test code = 74150-0) [facility] HospitalProthrombin time/[id number] 04:37:00 Test Item Value Reference Interpretation Comments [...] valves. Lab Interpretation Abnormal (test code = 30541-7) [facility][id number] 04:37:00 Test Item Value Reference Range Interpretation [...] 4.9 See_Comment [A utomated message] The system App [employer] generated this result transmitted ref erence range: 3.5 - 10 .5 K/L. The refe rence range was not u sed to interpret this result as normal/abnor mal. RBC (test code = 789-8) 3.49 See_Comment L [Au tomated message] The system App [employer] generated this result transmitted ref erence range: 4.63 - 6 .08 M/L. The refe rence range was not u sed to interpret this result as normal/abnor mal. MCHC (test code = 786-4) 32.2 See_Comment L [A utomated message] The system App [employer] generated this result transmitted ref erence range: [...] L [Aut omated message] 777-3) The system App [employer] generated this result transmitted ref erence range: 150 - 45 0 K/CU MM. The referen ce range was not u sed to interpret this result as normal/abnor mal. MPV (test code = 10.8 fL 9.4-12.4 78286-0) nRBC (test code = 413) 0 See_Comment [Aut omated message] The system App Partner generated this result transmitted ref erence range: 0 - 0 /1 00 WBC. The refere nce range was not u sed to interpret this result as normal/abnor mal. Lab Interpretation (test Abnormal code = 17529-3) [facility] (Hemogram only)2020-05-10 04:24:00 Test Item Value Reference Range Interpretation Comments WBC (test code = 6690-2) 4.9 See_Comment [A utomated message] The system App Partner generated this result transmitted ref erence range: 3.5 - 10 .5 K/L. The refe rence range was not u sed to interpret this result as normal/abnor mal. RBC (test code = 789-8) 3.49 See_Comment L [Au tomated message] The system App Partner generated this result transmitted ref erence range: 4.63 - 6 .08 M/L. The refe rence range was not u sed to interpret this result as normal/abnor mal. MCHC (test code = 786-4) 32.2 See_Comment L [A utomated message] The system App Partner generated this result transmitted ref erence range: [...] L [Aut omated message] 777-3) The system App Partner generated this result transmitted ref erence range: 150 - 45 0 K/CU MM. The referen ce range was not u sed to interpret this result as normal/abnor mal. MPV (test code = 10.8 fL 9.4-12.4 49495-1) nRBC (test code = 413) 0 See_Comment [Aut omated message] The system App Partner generated this result transmitted ref erence range: 0 - 0 /1 00 WBC. The refere nce range was not u sed to interpret this result as normal/abnor mal. Lab Interpretation (test Abnormal code = 93572-2) [facility] (Hemogram only)2020-05-10 04:24:00 Test Item Value Reference Range Interpretation Comments WBC (test code = 6690-2) 4.9 See_Comment [A utomated message] The system App Partner generated this result transmitted ref erence range: 3.5 - 10 .5 K/L. The refe rence range was not u sed to interpret this result as normal/abnor mal. RBC (test code = 789-8) 3.49 See_Comment L [Au tomated message] The system App Partner generated this result transmitted ref erence range: 4.63 - 6 .08 M/L. The refe rence range was not u sed to interpret this result as normal/abnor mal. MCHC (test code = 786-4) 32.2 See_Comment L [A utomated message] The system App Partner generated this result transmitted ref erence range: [...] L [Aut omated message] 777-3) The system App Partner generated this result transmitted ref erence range: 150 - 45 0 K/CU MM. The referen ce range was not u sed to interpret this result as normal/abnor mal. MPV (test code = 10.8 fL 9.4-12.4 93146-6) nRBC (test code = 413) 0 See_Comment [Aut omated message] The system App Partner generated this result transmitted ref erence range: 0 - 0 /1 00 WBC. The refere nce range was not u sed to interpret this result as normal/abnor mal. Lab Interpretation (test Abnormal code = 17179-5) [facility] (HEMOGRAM ONLY)2020-05-10 04:24:00 Test Item [...] 0-0 (BEAKER) (test code = 413) POC-Glucose [id number] 23:22:00 Test Item Value Reference Range Interpretation Comments POC-Glucose Meter (test 173 mg/dL 70-110 H : TE STED AT [facility] code = 1538) [address] [place] [address], [facility] 30: Administration Clerk/Techni vipin ID = [id number] for GUEVARA, ADEEL TTE Lab Interpretation (test Abnormal code = 55008-3) [place] [facility]-Glucose [id number] 23:22:00 Test Item Value Reference Range Interpretation Comments POC-Glucose Meter (test 173 mg/dL 70-110 H : TE STED AT [facility] code = 1538) [address] [place] [address], [facility] 30: Administration Clerk/Techni vipin ID = [id number] for GUEVARA, ADEEL TTE Lab Interpretation (test Abnormal code = 22132-9) [facility] [id number] 23:22:00 Test Item Value Reference Range Interpretation Comments POC-Glucose Meter (test 173 mg/dL 70-110 H : TE STED AT [facility] code = 1538) [address] [place] [address], [facility] 30: Administration Clerk/Techni vipin ID = [id number] for GUEVARA, ADEEL TTE Lab Interpretation (test Abnormal code = 99491-4) [facility]-GLUCOSE [id number] 23:22:00 Test Item Value Reference Range Interpretation Comments POC-GLUCOSE METER 173 mg/dL 70-110 H : TESTED A T [facility] 6720 (BEAKER) (test code = [place], 1538) [id number]: Administration Clerk/Techni vipin ID = [id number] for ADEEL GUEVARA TTE [id number] 10:54:00 Test Item Value Reference Range Interpretation Comments PTT (test code = 58693-4) 34.9 See_Comment [ Automated message] The system App Partner generated this result transmitted ref erence range: 22.5 - 3 6.0 seconds. The re ference range was not u sed to interpret this result as normal/abnor mal. Lab Interpretation (test Normal code = 87172-4) [facility]00 Test Item Value Reference Range Interpretation Comments PTT (test code = 06812-9) 34.9 See_Comment [ Automated message] The system App Partner generated this result transmitted ref erence range: 22.5 - 3 6.0 seconds. The re ference range was not u sed to interpret this result as normal/abnor mal. Lab Interpretation (test Normal code = 10231-1) [facility] 10:54:00 Test Item Value Reference Range Interpretation Comments PTT (test code = 62511-5) 34.9 See_Comment [ Automated message] The system organgir.am generated this result transmitted ref erence range: 22.5 - 3 6.0 seconds. The re ference range was not u sed to interpret this result as normal/abnor mal. Lab Interpretation (test Normal code = 26744-7) [facility] 10:54[facility]00 Test Item Value Reference Range Interpretation Comments PARTIAL THROMBOPLASTIN TIME 34.9 seconds 22.5-36.0 (BEAKER) (test code = 760) PROTHROMBIN TIME/[id number] 10:53:00 Test Item Value Reference Range Interpretation [...] heart valves.CBC with platelet count + automated [id number] 10:45:00 Test Item Value Reference Range Interpretation Comments WBC (test code = 6690-2) 6.0 See_Comment [A utomated message] The system App Partner generated this result transmitted ref erence range: 3.5 - 10 .5 K/L. The refe rence range was not u sed to interpret this result as normal/abnor mal. RBC (test code = 789-8) 4.08 See_Comment L [Au tomated message] The system App Partner generated this result transmitted ref erence range: 4.63 - 6 .08 M/L. The refe rence range was not u sed to interpret this result as normal/abnor mal. MCHC (test code = 786-4) 32.4 See_Comment L [A utomated message] The system App Partner generated this result transmitted ref erence range: [...] See_Comment [Aut omated message] 777-3) The system App Partner generated this result transmitted ref erence range: 150 - 45 0 K/CU MM. The referen ce range was not u sed to interpret this result as normal/abnor mal. MPV (test code = 10.8 fL 9.4-12.4 78455-0) nRBC (test code = 413) 0 See_Comment [Aut omated message] The system App Partner generated this result transmitted ref erence range: [...] See_Comment [Aut omated message] 670) The system App Partner generated this result transmitted ref erence range: 1.78 - 5 .38 K/L. The refe rence range was not u sed to interpret this result as normal/abnor mal. # Lymphs (test code = 1.29 See_Comment L [Auto mated message] 414) The system App Partner generated this result transmitted ref erence range: 1.32 - 3 .57 K/L. The refe rence range was not u sed to interpret this result as normal/abnor mal. # Monos (test code = 0.69 See_Comment [Autom ated message] 415) The system App Partner generated this result transmitted ref erence range: 0.30 - 0 .82 K/L. The refe rence range was not u sed to interpret this result as normal/abnor mal. # Eos (test code = 416) 0.20 See_Comment [Au tomated message] The system App Partner generated this result transmitted ref erence range: 0.04 - 0 .54 K/L. The refe rence range was not u sed to interpret this result as normal/abnor mal. # Baso (test code = 417) 0.04 See_Comment [A utomated message] The system App Partner generated this result transmitted ref erence range: 0.01 - 0 .08 K/L. The refe rence range was not u sed to interpret this result as normal/abnor mal. Immature 0 % 0-1 Granulocytes-Relative (test code = 2801) Lab Interpretation (test Abnormal code = 70071-8) [facility] with platelet count + automated [id number] 10:45:00 Test Item Value Reference Range Interpretation Comments WBC (test code = 6690-2) 6.0 See_Comment [A utomated message] The system App Partner generated this result transmitted ref erence range: 3.5 - 10 .5 K/L. The refe rence range was not u sed to interpret this result as normal/abnor mal. RBC (test code = 789-8) 4.08 See_Comment L [Au tomated message] The system App Partner generated this result transmitted ref erence range: 4.63 - 6 .08 M/L. The refe rence range was not u sed to interpret this result as normal/abnor mal. MCHC (test code = 786-4) 32.4 See_Comment L [A utomated message] The system App Partner generated this result transmitted ref erence range: [...] See_Comment [Aut omated message] 777-3) The system App Partner generated this result transmitted ref erence range: 150 - 45 0 K/CU MM. The referen ce range was not u sed to interpret this result as normal/abnor mal. MPV (test code = 10.8 fL 9.4-12.4 52642-1) nRBC (test code = 413) 0 See_Comment [Aut omated message] The system App Partner generated this result transmitted ref erence range: [...] See_Comment [Aut omated message] 670) The system App Partner generated this result transmitted ref erence range: 1.78 - 5 .38 K/L. The refe rence range was not u sed to interpret this result as normal/abnor mal. # Lymphs (test code = 1.29 See_Comment L [Auto mated message] 414) The system App Partner generated this result transmitted ref erence range: 1.32 - 3 .57 K/L. The refe rence range was not u sed to interpret this result as normal/abnor mal. # Monos (test code = 0.69 See_Comment [Autom ated message] 415) The system App Partner generated this result transmitted ref erence range: 0.30 - 0 .82 K/L. The refe rence range was not u sed to interpret this result as normal/abnor mal. # Eos (test code = 416) 0.20 See_Comment [Au tomated message] The system App Partner generated this result transmitted ref erence range: 0.04 - 0 .54 K/L. The refe rence range was not u sed to interpret this result as normal/abnor mal. # Baso (test code = 417) 0.04 See_Comment [A utomated message] The system App Partner generated this result transmitted ref erence range: 0.01 - 0 .08 K/L. The refe rence range was not u sed to interpret this result as normal/abnor mal. Immature 0 % 0-1 Granulocytes-Relative (test code = 2801) Lab Interpretation (test Abnormal code = 33698-1) [facility] with platelet count + automated [id number] 10:45:00 Test Item Value Reference Range Interpretation Comments WBC (test code = 6690-2) 6.0 See_Comment [A utomated message] The system App Partner generated this result transmitted ref erence range: 3.5 - 10 .5 K/L. The refe rence range was not u sed to interpret this result as normal/abnor mal. RBC (test code = 789-8) 4.08 See_Comment L [Au tomated message] The system App Partner generated this result transmitted ref erence range: 4.63 - 6 .08 M/L. The refe rence range was not u sed to interpret this result as normal/abnor mal. MCHC (test code = 786-4) 32.4 See_Comment L [A utomated message] The system App Partner generated this result transmitted ref erence range: [...] See_Comment [Aut omated message] 777-3) The system App Partner generated this result transmitted ref erence range: 150 - 45 0 K/CU MM. The referen ce range was not u sed to interpret this result as normal/abnor mal. MPV (test code = 10.8 fL 9.4-12.4 34860-5) nRBC (test code = 413) 0 See_Comment [Aut omated message] The system App Partner generated this result transmitted ref erence range: [...] See_Comment [Aut omated message] 670) The system App Partner generated this result transmitted ref erence range: 1.78 - 5 .38 K/L. The refe rence range was not u sed to interpret this result as normal/abnor mal. # Lymphs (test code = 1.29 See_Comment L [Auto mated message] 414) The system App Partner generated this result transmitted ref erence range: 1.32 - 3 .57 K/L. The refe rence range was not u sed to interpret this result as normal/abnor mal. # Monos (test code = 0.69 See_Comment [Autom ated message] 415) The system App Partner generated this result transmitted ref erence range: 0.30 - 0 .82 K/L. The refe rence range was not u sed to interpret this result as normal/abnor mal. # Eos (test code = 416) 0.20 See_Comment [Au tomated message] The system App Partner generated this result transmitted ref erence range: 0.04 - 0 .54 K/L. The refe rence range was not u sed to interpret this result as normal/abnor mal. # Baso (test code = 417) 0.04 See_Comment [A utomated message] The system App Partner generated this result transmitted ref erence range: 0.01 - 0 .08 K/L. The refe rence range was not u sed to interpret this result as normal/abnor mal. Immature 0 % 0-1 Granulocytes-Relative (test code = 2801) Lab Interpretation (test Abnormal code = 79304-9) [facility] W/PLT COUNT & AUTO [id number] 10:45:00 Test Item Value Reference Range Interpretation [...] PERCENT (BEAKER) (test code = 2801) PROTHROMBIN TIME/[id number] 10:37:00 Test Item Value Reference Range Interpretation [...] INR is2.5-3.5 for patients wiht mechanical heart valves.[id number] 10:37:00 Test Item Value Reference Range Interpretation Comments PARTIAL THROMBOPLASTIN TIME 32.0 seconds 22.5-36.0 (BEAKER) (test code = 760) CBC W/PLT COUNT & AUTO [id number] 10:24:00 Test Item Value Reference Range Interpretation [...] PERCENT (BEAKER) (test code = 2801) PROTHROMBIN TIME/[id number] 11:43:00 Test Item Value Reference Range Interpretation [...] INR is2.5-3.5 for patients wiht mechanical heart valves.[id number] 11:43:00 Test Item Value Reference Range Interpretation Comments PARTIAL THROMBOPLASTIN TIME 23.3 seconds 22.5-36.0 (BEAKER) (test code = 760) CBC W/PLT COUNT & AUTO [id number] 11:34:00 Test Item Value Reference Range Interpretation [...] code = 2801) CT, CHEST, WITH IV [id number] 14:00:00FINAL REPORT TECHNIQUE: CT of the chest, [...] Stable bilateral subcentimeter nodules. Signed: Yaniv Landers Verified Date/Time: 02/15/2020 14:00:05 Reading Location: [facility] C013X [facility] Consult Reading Room CT, [id number] 14:00:00FINAL REPORT TECHNIQUE: CT of the chest, [...] MDReport Verified Date/Time: 02/15/2020 14:00:05 Reading Location: [facility] B1 C013X Ortho Consult Reading Room HIV AB/AG 4TH GEN W [id number] 12:57:03 Test Item Value Reference Range Interpretation Comments HIV AB/AG 4TH NON-REACTIVE NON-REACTIVE Unles s Otherwise GEN W RFLX (test Indicated, All Testing code = 35957-0) Performed At : [facility] [employer] [facility], [address] [place] [address] Laboratory D irector: Ji bennett M.D. CLIA Number [id number] Cap Accreditation N o. [id number] [facility] [id number] 12:57:03 Test Item Value Reference Range Interpretation Comments HEP A IGM ANTIBODY NON-REACTIVE NON-REACTIVE (test code = 92152-5) HEP B CORE IGM NON-REACTIVE NON-REACTIVE ANTIBODY (test code = 59854-1) HEP BS ANTIGEN (test NON-REACTIVE NON-REACTIVE code = 5196-1) HEP C ANTIBODY (test NON-REACTIVE NON-REACTIVE code = 07993-2) INTERPRETATION (NOTE) Hepatiti s A HEPATITIS A (test code serol ogy shows no = 60665) evidence of acu te hepatitis A. INTERPRETATION (NOTE) Hepatiti s B HEPATITIS B (test code serol ogy shows no = 32455) evidence of acu te hepatitis B and no indication of exposure to hepatitis B vir us in the previous si xto eight months. INTERPRETATION (NOTE) Hepatiti s C HEPATITIS C (test code serol ogy shows no = 93278) evidence of exp osure to hepatitisC v irus at this time. It can take up to 12 months after exposure tothe hepatitis C vir us for antibodies to become detectab le in the blood i n certain patient s. Unless Otherwise Indic ated, All Testing Performed At: [facility], [address] [place] [address] Laboratory Dire ctor: Ji bennett M.D. CLI A Number [id number] 03 [facility] [place]. [id number] [facility] ValleyFyyfnsbgYGEO-[id number] 14:53:00 Test Item Value Reference Range Interpretation Comments POC-CREATININE 0.8 mg/dL 0.6-1.3 TESTED AT [facility] 7200 ([facility]) (test GAVIN BLD G A code = 1859) [facility] 7703 0 POC-EGFR 121 mL/min/1.73M2 ([facility]) (test code = 1860) CT, CHEST, WITH IV [id number] 10:23:00FINAL REPORT CT scan of the chest, [...] recurrent disease.3. No other significant change. Signed:Eleno Dawneport Verified Date/Time: 08/01/2019 10:23:19 Reading Location: [address] Body Reading Room [facility], [id number] 10:23:00FINAL REPORT CT scan of the chest, [...] recurrent disease.3. No other significant change. Signed:Eleno Dawn MDReport Verified Date/Time: 08/01/2019 10:23:19 Reading Location: [facility] C013Y CT Body Reading Room CT, [id number] 12:48:00Reason for Exam:->cancer of right kidneyFINAL REPORT [...] MDReport Verified Date/Time: 05/03/2019 12:48:10 Reading Location: [address] Consult Reading Room CT, CHEST, WITH IV [id number] 12:48:00Restaging RCCReason for Exam:->cancer of right kidneyFINAL [...] to follow-up. Enlarged prostate gland. Signed: Lizzette Smithort Verified Date/Time: 05/03/2019 12:48:10 Reading Location: [address] Consult Reading Room [id number] 08:42:00 Test Item Value Reference Range Interpretation Comments POC-CREATININE 0.7 mg/dL 0.6-1.3 TESTED AT [facility] 7200 (ANJALI) (test GAVIN BLD G A code = 1859) [facility] 7703 0 POC-EGFR 141 mL/min/1.73M2 ([facility]I) (test code = 1860) CT, [id number] 12:11:00FINAL REPORT EXAM: CT Chest, Abdomen and [...] burden, concerning for fecal impaction. Signed: Chauncey Diane MDReport Verified Date/Time: 12/24/2018 12:11:19 Reading Location: [facility] Reading Room [address] [place] [address] CT, CHEST, WITH IV [id number] 12:11:00FINAL REPORT EXAM: CT Chest, Abdomen and [...] burden, concerning for fecal impaction. Signed: Chauncey Diane Verified Date/Time: 12/24/2018 12:11:19 Reading Location: [facility] [employer] Reading Room [address] [place] [address] RAD, CHEST, 2 [id number] 11:57:00Reason for Exam:->Z85.528FINAL REPORT EXAM: PA and [...] Chong Verified Date/Time: 12/23/2018 11:57:24 Reading Location: [facility] Reading Room [address] [place] [address] [id number] 11:35:00 Test Item Value Reference Range Interpretation Comments POC-CREATININE 0.8 mg/dL 0.6-1.3 TESTED AT [facility] 7200 (ANJALI) (test GAVIN BLD G A code = 1859) [facility] 7703 0 POC-EGFR 121 mL/min/1.73M2 (ANJALI) (test code = 1860) TISSUE [id number] 09:12:00Surgical Pathology Report Case: [id number] Authorizing Provider: Stephanie Moffett MD Collected: 10/19/2018 5533 Ordering Location: [facility] PERIOPER[facility]IVE Received: 10/19/2018 5497 SERVICES Pathologist: Cm Modi MD Specimens: A) [...] SYNOPTIC REPORT) Signing Pathologist Direct Phone Line: [phone] signed by Cm Modi MD on 11/01/2018 [...] Pathologic Findings in Nonneoplastic Kidney: Insufficient tissue 85321, 70773A2, 55321, 14464, 83580b0Pdjbx massA. Hilar lymph node; B. Retroperitoneal lymph [...] the adipose and kidney parenchyma present grossly. Estate Agent sections of tumorand surrounding tissue are submitted in D1 to D8. SB/Eunice, RIGHT, BASE OF TUMOR: - FIBROMUSCULAR AND ADIPOSE TISSUE - NO OVERT TUMOR IS SEENThese results were reported to Dr. Moffett in OR-[address] Modi at 6 p.m., on October 19, 2018. Performed.The interpretation of this case included the use of immunohistochemistry or special stains.On D7: [place]-8, Cam5.2, CK7, Ki-67, AMCARImmunohistochemistry technical testing was performed at [facility], Pathology Laboratory where it was developed [...] complexity clinical laboratory testing.SPUTUM CULTURE + GRAM [id number] 09:23:00 Test Item Value Reference Range Interpretation Comments CULTURE (BEAKER) 4+ Normal respiratory (test code = 1095) david present GRAM STAIN RESULT <1+ WBCs (BEAKER) (test code = 1123) GRAM STAIN RESULT 0-5 epithelial cells (BEAKER) (test code = 42663) GRAM STAIN RESULT 1+ gram positive cocci (BEAKER) (test code = in chains, pairs and 56734) clusters POCT-GLUCOSE [id number] 16:57:00 Test Item Value Reference Range Interpretation Comments POC-GLUCOSE METER 246 mg/dL 70-110 H TESTED AT [facility] 6720 (BEAKER) (test code = [facility] [employer] [place] 1538) [address] POCT-GLUCOSE [id number] 12:56:00 Test Item Value Reference Range Interpretation Comments POC-GLUCOSE METER 238 mg/dL 70-110 H TESTED AT [facility] 6720 (BEAKER) (test code = [facility] [employer] [place] 1538) [address] CBC W/PLT COUNT & AUTO [id number] 08:28:00 Test Item Value Reference Range Interpretation [...] 0-1 PERCENT (BEAKER) (test code = 2801) [id number] 08:26:00 Test Item Value Reference Range Interpretation Comments PHOSPHORUS (BEAKER) (test code = 3.4 mg/dL 2.3-4.7 604) [id number] 08:26:00 Test Item Value Reference Range Interpretation Comments MAGNESIUM (BEAKER) (test code = 1.9 mg/dL 1.6-2.6 627) BASIC METABOLIC [id number] 08:26:00 Test Item Value Reference Range Interpretation [...] NOT APPLICABLE FOR DIALYSIS PATIEN TS. POCT-GLUCOSE [id number] 21:52:00 Test Item Value Reference Range Interpretation Comments POC-GLUCOSE METER 130 mg/dL 70-110 H TESTED AT [facility] (test code = [place] 1538) [address] POCT-GLUCOSE [id number] 16:41:00 Test Item Value Reference Range Interpretation Comments POC-GLUCOSE METER 242 mg/dL 70-110 H TESTED AT [facility] 6720 ([facility]) (test code = ELIAS [facility] 1538) [address] RAD, CHEST, 1 VIEW, NON [id number] 15:52:00Reason for exam:->eval for pulmonary edemaShould this [...] MDReport Verified Date/Time: 10/25/2018 15:52:14 Reading Location: [facility] C013W Consult Reading Room POCT-GLUCOSE [id number] 11:57:00 Test Item Value Reference Range Interpretation Comments POC-GLUCOSE METER 202 mg/dL 70-110 H [facility] [facility] (BEAKER) (test code = [facility] 1538) [address] POCT-GLUCOSE [id number] 08:32:00 Test Item Value Reference Range Interpretation Comments POC-GLUCOSE METER 179 mg/dL 70-110 H TESTED AT [facility] 6720 (BEAKER) (test code = [facility] 1538) [address] [id number] 07:11:00 Test Item Value Reference Range Interpretation Comments PHOSPHORUS (BEAKER) (test code = 3.3 mg/dL 2.3-4.7 604) [id number] 07:11:00 Test Item Value Reference Range Interpretation Comments MAGNESIUM (BEAKER) (test code = 1.7 mg/dL 1.6-2.6 627) BASIC METABOLIC [id number] 07:11:00 Test Item Value Reference Range Interpretation [...] PATIEN TS. CBC W/PLT COUNT & AUTO [id number] 06:57:00 Test Item Value Reference Range Interpretation [...] code = 2801) SPUTUM CULTURE + GRAM [id number] 01:06:00 Test Item Value Reference Range Interpretation Comments CULTURE (BEAKER) Oropharyngeal (test code = 1095) contamination, specimen rejected. Recollect requested. GRAM STAIN RESULT <1+ WBCs (BEAKER) (test code = 1123) GRAM STAIN RESULT >25 epithelial cells (BEAKER) (test code = 28939) GRAM STAIN RESULT <1+ gram negative rods (BEAKER) (test code = 92765) GRAM STAIN RESULT 1+ gram positive rods (BEAKER) (test code = 938958) GRAM STAIN RESULT 4+ gram positive cocci in (BEAKER) (test code chains, pairs and = 826973) clusters POCT-GLUCOSE [id number] 18:16:00 Test Item Value Reference Range Interpretation Comments POC-GLUCOSE METER 173 mg/dL 70-110 H TESTED AT [facility] 6720 (BEAKER) (test code = [facility] Melgo[facility] 1538) [address] RAD, CHEST, 1 VIEW, NON [id number] 15:21:00Reason for exam:->SOBShould this be performed at the bedside?->YesFINAL REPORT AP chest HISTORY: Shortness of breath COMPARISON: 10/23/2017 IMPRESSION:Intact skeleton. Heart size normal. Bibasilar atelectasis. No pneumothorax. Signed: Jeremy Doughertyeport Verified Date/Time: 10/24/2018 15:21:04 Reading Location: [address] Reading Room POCT-GLUCOSE [id number] 12:58:00 Test Item Value Reference Range Interpretation Comments POC-GLUCOSE METER 315 mg/dL 70-110 H TESTED AT [facility] 6720 (BEAKER) (test code = [place] 1538) [address] [id number] 07:04:00 Test Item Value Reference Range Interpretation Comments PHOSPHORUS (BEAKER) (test code = 4.1 mg/dL 2.3-4.7 604) [id number] 07:04:00 Test Item Value Reference Range Interpretation Comments MAGNESIUM (BEAKER) (test code = 1.7 mg/dL 1.6-2.6 627) BASIC METABOLIC [id number] 07:04:00 Test Item Value Reference Range Interpretation [...] PATIEN TS. CBC W/PLT COUNT & AUTO [id number] 06:56:00 Test Item Value Reference Range Interpretation [...] PERCENT (BEAKER) (test code = 2801) POCT-GLUCOSE [id number] 21:33:00 Test Item Value Reference Range Interpretation Comments POC-GLUCOSE METER 195 mg/dL 70-110 H TESTED AT [facility] 6720 ([facility]) (test code = [facility] [place] 1538) [address] RAD, ABDOMEN/KUB, 1 VIEW [id number] 20:09:00Reason for exam:->abdominal distentionShould this be performed [...] Impression:Findings compatible with an ileus. Signed: Angel Ashton Verified Date/Time: 10/23/2018 20:09:42 Reading Location: [place] [address] Body ReadingRoom POCT-GLUCOSE [id number] 16:49:00 Test Item Value Reference Range Interpretation Comments POC-GLUCOSE METER 311 mg/dL 70-110 H TESTED AT [place] [address] ([facility]) (test code = [facility]IAS Melgoza [facility] 1538) [address] POCT-GLUCOSE [id number] 13:44:00 Test Item Value Reference Range Interpretation Comments POC-GLUCOSE METER 239 mg/dL 70-110 H TESTED AT [place] [address] ([facility]) (test code = [facility] Melgo[facility] 1538) [address] RAD, CHEST, 1 VIEW, NON [id number] 08:59:00Reason for exam:->SOBShould this be performed at [...] Stable contours. Additional findings: None. Signed: Blanche Loya Verified Date/Time: 10/23/2018 08:59:13 Reading Location: [facility] C0V Neuro Reading Room Electronicallysigned by: BLANCHE LOYA MD on 10/23/2018 08:59 AMPOCT-GLUCOSE [id number] 08:09:00 Test Item Value Reference Range Interpretation Comments POC-GLUCOSE METER 185 mg/dL 70-110 H TESTED AT [facility] 6720 (BEAKER) (test code = [facility] [place] 1538) [address] [id number] 06:28:00 Test Item Value Reference Range Interpretation Comments PHOSPHORUS (BEAKER) (test code = 3.1 mg/dL 2.3-4.7 604) [id number] 06:28:00 Test Item Value Reference Range Interpretation Comments MAGNESIUM (BEAKER) (test code = 1.7 mg/dL 1.6-2.6 627) BASIC METABOLIC [id number] 06:28:00 Test Item Value Reference Range Interpretation [...] 697) EGFR (BEAKER) (test 91 mL/min/1.73 ESTIMA ANNE MARIE GFR IS code = 1092) sq m NOT ACCURATE CREATININE CLEARANCE IN PREDICTING GLOMERULAR FILTRATION RATE . ESTIMATED GFR I S NOT APPLICABLE FOR DIALYSIS PATIEN TS. HEMOGLOBIN AND [id number] 05:24:00 Test Item Value Reference Range Interpretation Comments HEMOGLOBIN (BEAKER) (test code = 9.3 GM/DL 13.7-17.5 L 410) HEMATOCRIT (BEAKER) (test code = 29.8 % 40.1-51.0 L 411) CREATININE, BODY [id number] 01:47:00 Test Item Value Reference Range Interpretation Comments CREATININE FLUID (BEAKER) (test 0.91 mg/dL code = 677) Reference Range: No Normals Assay performance has not been validated for this type of specimen.Please place ostomy bag over midline wound to collect fluid to send for CreatininePOCT-GLUCOSE [id number] 21:35:00 Test Item Value Reference Range Interpretation Comments POC-GLUCOSE METER 213 mg/dL 70-110 H TESTED AT [facility] 6720 (BEAKER) (test code = ELI[facility] [place]go[facility] [place] 1538) [address] POCT-GLUCOSE [id number] 19:01:00 Test Item Value Reference Range Interpretation Comments POC-GLUCOSE METER 202 mg/dL 70-110 H TESTED AT [facility] 6720 (BEAKER) (test code = ELI[facility] [place]go[place] 1538) [address] [id number] 15:55:00 Test Item Value Reference Range Interpretation Comments PARTIAL THROMBOPLASTIN TIME 38.0 seconds 22.5-36.0 H (BEAKER) (test code = 760) PROTHROMBIN [id number] 15:54:00 Test Item Value Reference Range Interpretation Comments PROTIME (BEAKER) (test code = 15.4 seconds 11.7-14.7 H 759) INR (BEAKER) (test code = 370) 1.2 <=5.9 RECOMMENDED COUMADIN/WARFARIN INR THERAPY RANGESSTANDARD DOSE: 2.0 - 3.0 Includes: PROPHYLAXIS forvenous thrombosis, systemic embolization; TREATMENT for venous thrombosis and/or pulmonary embolus.HIGH RISK: Target INR is 2.5-3.5 for patients with mechanical heart valves.[id number] 15:44:00 Test Item Value Reference Range Interpretation Comments MAGNESIUM (BEAKER) 2.0 mg/dL 1.6-2.6 Specimen slightly (test code = 627) hemolyzed BASIC METABOLIC [id number] 15:44:00 Test Item Value Reference Range Interpretation [...] 697) EGFR (BEAKER) (test 77 mL/min/1.73 ESTIMA ANNE MARIE GFR IS code = 1092) sq m NOT ACCURATE CREATININE CLEARANCE IN PREDICTING GLOMERULAR FILTRATION RATE . ESTIMATED GFR I S NOT APPLICABLE FOR DIALYSIS PATIEN TS. HEMOGLOBIN AND [id number] 15:31:00 Test Item Value Reference Range Interpretation Comments HEMOGLOBIN (BEAKER) (test code = 9.5 GM/DL 13.7-17.5 L 410) HEMATOCRIT (BEAKER) (test code = 29.8 % 40.1-51.0 L 411) POCT-GLUCOSE [id number] 13:55:00 Test Item Value Reference Range Interpretation Comments POC-GLUCOSE METER 252 mg/dL 70-110 H TESTED AT [facility] 6720 (BEAKER) (test code = ELI[facility] Melgo[place] 1538) [address] HEPATIC FUNCTION [id number] 11:12:00 Test Item Value Reference Range Interpretation [...] 6-55 347) RAD, CHEST, 1 VIEW, NON [id number] 09:35:00Reason for exam:->SOBShould this be performed at the bedside?->YesFINAL REPORT Portable chest. CLINICAL HISTORY: SOB. COMPARISON STUDY: Chest x-ray from yesterday. FINDINGS: The cardiac silhouette is enlarged. The pulmonary parenchyma demonstrates increased interstitial and atelectatic changes, similar to previous. No pneumothorax is seen. Degenerative changes are noted. IMPRESSION: No significant change. Signed: Eleno Dawneport Verified Date/Time: 10/22/2018 09:35:30 Reading Location: [facility] Radiology Reading Room POCT-GLUCOSE [id number] 07:52:00 Test Item Value Reference Range Interpretation Comments POC-GLUCOSE METER 161 mg/dL 70-110 H TESTED AT [facility] 6720 (BEAKER) (test code = [facility] [place] 1538) [address] [id number] 05:48:00 Test Item Value Reference Range Interpretation Comments PHOSPHORUS (BEAKER) (test code = 2.6 mg/dL 2.3-4.7 604) [id number] 05:48:00 Test Item Value Reference Range Interpretation Comments MAGNESIUM (BEAKER) (test code = 1.8 mg/dL 1.6-2.6 627) BASIC METABOLIC [id number] 05:48:00 Test Item Value Reference Range Interpretation [...] 697) EGFR (BEAKER) (test 90 mL/min/1.73 ESTIMA ANNE MARIE GFR IS code = 1092) sq m NOT ACCURATE CREATININE CLEARANCE IN PREDICTING GLOMERULAR FILTRATION RATE . ESTIMATED GFR I S NOT APPLICABLE FOR DIALYSIS PATIEN TS. HEMOGLOBIN AND [id number] 05:04:00 Test Item Value Reference Range Interpretation Comments HEMOGLOBIN (ANJALI) (test code = 8.7 GM/DL 13.7-17.5 L 410) HEMATOCRIT (MARCI) (test code = 27.9 % 40.1-51.0 L 411) POCT-GLUCOSE [id number] 21:42:00 Test Item Value Reference Range Interpretation Comments POC-GLUCOSE METER 176 mg/dL 70-110 H TESTED AT [facility] 67 ([facility]) (test code = [facility]go[facility] 1538) [address] RAD, CHEST, 2 [id number] 20:45:00Reason for exam:->Pre-opShould this be performed at [...] MDReport Verified Date/Time: 10/21/2018 20:45:31 Reading Location: [address] Reading Room POCT-GLUCOSE [id number] 18:43:00 Test Item Value Reference Range Interpretation Comments POC-GLUCOSE METER 237 mg/dL 70-110 H TESTED AT [facility] 67 ([facility]) (test code = [facility] Melgo[facility] 1538) [address] [id number] 16:57:00 Test Item Value Reference Range Interpretation Comments PARTIAL THROMBOPLASTIN TIME 37.9 seconds 22.5-36.0 H ([facility]) (test code = 760) Draw at 4pm pleaseDraw at 4pm pleasePROTHROMBIN [id number] 16:55:00 Test Item Value Reference Range Interpretation [...] 4pm pleaseDraw at 4pm please HEMOGLOBIN AND [id number] 16:43:00 Test Item Value Reference Range Interpretation Comments HEMOGLOBIN (BEAKER) (test code = 9.4 GM/DL 13.7-17.5 L 410) HEMATOCRIT (BEAKER) (test code = 30.8 % 40.1-51.0 L 411) Draw at 4pm pleasePOCT-GLUCOSE [id number] 14:06:00 Test Item Value Reference Range Interpretation Comments POC-GLUCOSE METER 193 mg/dL 70-110 H TESTED AT [facility] 6720 (BEAKER) (test code = [facility] 1538) [address] [id number] 10:38:00 Test Item Value Reference Range Interpretation Comments PHOSPHORUS (BEAKER) (test code = 3.2 mg/dL 2.3-4.7 604) [id number] 10:38:00 Test Item Value Reference Range Interpretation Comments MAGNESIUM (BEAKER) (test code = 2.0 mg/dL 1.6-2.6 627) BASIC METABOLIC [id number] 10:38:00 Test Item Value Reference Range Interpretation [...] 697) EGFR (BEAKER) (test 70 mL/min/1.73 ESTIMA ANNE MARIE GFR IS code = 1092) sq m NOT ACCURATE CREATININE CLEARANCE IN PREDICTING GLOMERULAR FILTRATION RATE . ESTIMATED GFR I S NOT APPLICABLE FOR DIALYSIS PATIEN TS. HEMOGLOBIN AND [id number] 08:59:00 Test Item Value Reference Range Interpretation Comments HEMOGLOBIN (BEAKER) (test code = 9.2 GM/DL 13.7-17.5 L 410) [facility] (test code = 29.0 % 40.1-51.0 L 411) POCT-GLUCOSE [id number] 07:58:00 Test Item Value Reference Range Interpretation Comments POC-GLUCOSE METER 170 mg/dL 70-110 H TESTED AT [place] [address] ([facility]) (test code = [facility] [place] 1538) [address] POCT-GLUCOSE [id number] 00:50:00 Test Item Value Reference Range Interpretation Comments POC-GLUCOSE METER 214 mg/dL 70-110 H TESTED AT [place] [address] ([facility]) (test code = [facility] [place] [facility] 1538) [address] POCT-GLUCOSE [id number] 17:28:00 Test Item Value Reference Range Interpretation Comments POC-GLUCOSE METER 260 mg/dL 70-110 H TESTED AT [place] [address] ([facility]) (test code = [facility] [place] [facility] 1538) [address] [id number] 16:02:00 Test Item Value Reference Range Interpretation Comments MAGNESIUM ([facility]) (test code = 1.5 mg/dL 1.6-2.6 L 627) POCT-GLUCOSE [id number] 14:49:00 Test Item Value Reference Range Interpretation Comments POC-GLUCOSE METER 248 mg/dL 70-110 H TESTED AT [place] [address] ([facility]) (test code = [facility] [place] 1538) [address] BASIC METABOLIC [id number] 07:27:00 Test Item Value Reference Range Interpretation [...] APPLICABLE FOR DIALYSIS PATIEN TS. HEMOGLOBIN AND [id number] 06:39:00 Test Item Value Reference Range Interpretation Comments HEMOGLOBIN (BEAKER) (test code = 9.9 GM/DL 13.7-17.5 L 410) HEMATOCRIT (BEAKER) (test code = 31.7 % 40.1-51.0 L 411) POCT-GLUCOSE [id number] 06:29:00 Test Item Value Reference Range Interpretation Comments POC-GLUCOSE METER 205 mg/dL 70-110 H TESTED AT [facility] 6720 (BEAKER) (test code = [facility] 1538) [address] POCT-GLUCOSE [id number] 22:44:00 Test Item Value Reference Range Interpretation Comments POC-GLUCOSE METER 234 mg/dL 70-110 H TESTED AT [facility] 6720 (BEAKER) (test code = [facility] 1538) [address] BASIC METABOLIC [id number] 20:57:00 Test Item Value Reference Range Interpretation [...] 697) EGFR (BEAKER) (test 91 mL/min/1.73 ESTIMA ANNE MARIE GFR IS code = 1092) sq m NOT ACCURATE CREATININE CLEARANCE IN PREDICTING GLOMERULAR FILTRATION RATE . ESTIMATED GFR I S NOT APPLICABLE FOR DIALYSIS PATIEN TS. HEMOGLOBIN AND [id number] 20:39:00 Test Item Value Reference Range Interpretation Comments HEMOGLOBIN (BEAKER) (test code = 10.2 GM/DL 13.7-17.5 L 410) HEMATOCRIT (BEAKER) (test code = 31.8 % 40.1-51.0 L 411) POCT-GLUCOSE [id number] 20:19:00 Test Item Value Reference Range Interpretation Comments POC-GLUCOSE METER 221 mg/dL 70-110 H TESTED AT [facility] 6720 (BEAKER) (test code = [facility] [place] 1538) [address] CALCIUM, [id number] 18:02:00 Test Item Value Reference Range Interpretation Comments CALCIUM IONIZED (BEAKER) (test 1.01 mmol/L 1.12-1.27 L code = 698) PH, BLOOD (BEAKER) (test code = 7.38 1810) BLOOD GAS, [id number] 18:02:00 Test Item Value Reference Range Interpretation [...] 37.0 C (test code = 1818) POTASSIUM-STAT [id number] 18:02:00 Test Item Value Reference Range Interpretation Comments POTASSIUM (BEAKER) (test code = 3.2 meq/L 3.6-5.5 L 379) GLUCOSE-STAT [id number] 18:02:00 Test Item Value Reference Range Interpretation Comments GLUCOSE RANDOM (BEAKER) (test code 164 mg/dL 70-110 H = 652) HGB/HCT (H&H) - STAT [id number] 18:02:00 Test Item Value Reference Range Interpretation Comments HEMOGLOBIN (BEAKER) (test code = 9.6 g/dL 13.0-16.8 L 410) HEMATOCRIT (BEAKER) (test code = 28.0 % 40.0-50.0 L 411) SODIUM NA-STAT [id number] 18:01:00 Test Item Value Reference Range Interpretation Comments SODIUM (BEAKER) (test code = 381) 136 meq/L 135-148 CALCIUM, [id number] 15:06:00 Test Item Value Reference Range Interpretation Comments CALCIUM IONIZED (BEAKER) (test 1.08 mmol/L 1.12-1.27 L code = 698) PH, BLOOD (BEAKER) (test code = 7.46 1810) BLOOD GAS, [id number] 15:06:00 Test Item Value Reference Range Interpretation [...] (test 37.0 C code = 1818) GLUCOSE-STAT [id number] 15:06:00 Test Item Value Reference Range Interpretation Comments GLUCOSE RANDOM (BEAKER) (test code 117 mg/dL 70-110 H = 652) HGB/HCT (H&H) - STAT [id number] 15:06:00 Test Item Value Reference Range Interpretation Comments HEMOGLOBIN (BEAKER) (test code = 10.9 g/dL 13.0-16.8 L 410) HEMATOCRIT (BEAKER) (test code = 32.0 % 40.0-50.0 L 411) SODIUM NA-STAT [id number] 15:05:00 Test Item Value Reference Range Interpretation Comments SODIUM (BEAKER) (test code = 381) 139 meq/L 135-148 POTASSIUM-STAT [id number] 15:05:00 Test Item Value Reference Range Interpretation Comments POTASSIUM (BEAKER) (test code = 3.6 meq/L 3.6-5.5 379) [id number] 12:05:00 Test Item Value Reference Range Interpretation Comments SODIUM (BEAKER) (test 139 meq/L 136-145 code = 381) POTASSIUM (BEAKER) 4.3 meq/L 3.5-5.1 Specimen slightly (test code = 379) hemolyzed CHLORIDE (BEAKER) 104 meq/L 98-107 (test code = 382) CO2 (BEAKER) (test 25 meq/L 22-29 code = 355) BUN AND [id number] 12:05:00 Test Item Value Reference Range Interpretation [...] S NOT APPLICABLE FOR DIALYSIS PATIEN TS. [id number] 11:46:00 Test Item Value Reference Range Interpretation Comments HEMOGLOBIN (BEAKER) (test code = 11.5 GM/DL 13.7-17.5 L 410) POCT-GLUCOSE [id number] 11:19:00 Test Item Value Reference Range Interpretation Comments POC-GLUCOSE METER 133 mg/dL 70-110 H TESTED AT [facility] 6720 (BEAKER) (test code = [place] 1538) [address] POCT-GLUCOSE [id number] 14:25:00 Test Item Value Reference Range Interpretation Comments POC-GLUCOSE METER 366 mg/dL 70-110 H Baby teste d Mother ID (BEAKER) (test code = used/T ESTED AT [facility] 1538) [address] [place] [address] POCT-GLUCOSE [id number] 07:42:00 Test Item Value Reference Range Interpretation Comments POC-GLUCOSE METER 237 mg/dL 70-110 H TESTED AT [facility] 6720 (BEAKER) (test code = ELIAS [place]go[place] 1538) [address] BASIC METABOLIC [id number] 05:07:00 Test Item Value Reference Range Interpretation [...] 753) MEAN CORPUSCULAR HEMOGLOBIN 28.3 pg 25.7-32.2 ([facility]) (test code = 751) MEAN CORPUSCULAR HEMOGLOBIN CONC 30.7 GM/DL 32.3-36.5 L ([facility]) (test code = 752) RED CELL DISTRIBUTION WIDTH 14.4 % 11.6-14.4 ([facility]) (test code = 412) PLATELET COUNT ([facility]) (test 347 K/CU MM 150-450 code = 756) MEAN PLATELET VOLUME ([facility]) 10.7 fL 9.4-12.4 (test code = 754) NUCLEATED RED BLOOD CELLS 0 /100 WBC 0-0 ([facility]) (test code = 413) POCT-GLUCOSE [id number] 22:48:00 Test Item Value Reference Range Interpretation Comments POC-GLUCOSE METER 166 mg/dL 70-110 H TESTED AT [place] [address] ([facility]) (test code = ELI[place] 1538) [address] [id number] 21:21:00 Test Item Value Reference Range Interpretation Comments ACTIVATED CLOTTING TIME 268 sec TEST ED AT [place] [address] ([facility]) (test code = ELI[place] 441) [address] POCT-GLUCOSE [id number] 17:32:00 Test Item Value Reference Range Interpretation Comments POC-GLUCOSE METER 164 mg/dL 70-110 H TESTED AT [place] [address] ([facility]) (test code = ELIAS [place]go[place] 1538) [address] POCT-GLUCOSE [id number] 12:02:00 Test Item Value Reference Range Interpretation Comments POC-GLUCOSE METER 220 mg/dL 70-110 H TESTED AT [place] [address] ([facility]) (test code = ELIAS Melgo[place] 1538) [address] POCT-GLUCOSE [id number] 08:11:00 Test Item Value Reference Range Interpretation Comments POC-GLUCOSE METER 228 mg/dL 70-110 H TESTED AT [place] [address] ([facility]) (test code = ELI[facility] [place] 1538) [address] LACTATE DEHYDROGENASE (LDH)2018-07-15 06:51:00 Test Item Value Reference Range Interpretation Comments LACTATE DEHYDROGENASE ([facility]) (test 262 U/L 125-220 H code = 635) POCT-GLUCOSE [id number] 06:06:00 Test Item Value Reference Range Interpretation Comments POC-GLUCOSE METER 186 mg/dL 70-110 H TESTED AT [place] [address] ([facility]) (test code = ELIAS Melgoza [place] [id number]) [address] BLOOD [id number] 05:01:00 Test Item Value Reference Range Interpretation Comments CULTURE ([facility]) (test No growth in 5 days code = 1095) BLOOD [id number] 05:01:00 Test Item Value Reference Range Interpretation Comments CULTURE ([facility]) (test No growth in 5 days code = 1095) POCT-GLUCOSE [id number] 21:38:00 Test Item Value Reference Range Interpretation Comments POC-GLUCOSE METER 267 mg/dL 70-110 H TESTED AT [place] [address] ([facility]) (test code = ELIAS Melgo[facility] 1538) [address] POCT-GLUCOSE [id number] 17:28:00 Test Item Value Reference Range Interpretation Comments POC-GLUCOSE METER 405 mg/dL 70-110 HH Notified R Donald PRICE/TESTED ([facility]) (test code = AT [address] 153) [facility] 7703 0 PET, CARDIAC PERFUSION MULTIPLE STUDIES, REST AND [id number] 12:29:00 Reason for exam:->preoperative risk stratficationFINAL REPORT PROCEDURE: Rest/Stress MYOCARDIAL PERFUSION PET with regadenos on\\XA9\\ CPT CODE: 14792 INDICATION: Preoperative risk stratification for renal mass [...] Heart rate was 90 beats/min at rest wfb656 beats/min (66% of MPHR) at tracer injection. [...] is normal. 6. No previous [facility] study for comparison. Signed: Toya Spangler MDReport Verified Date/Time: 07/14/2018 12:29:37 Reading Location: [address] POCT-GLUCOSE [id number] 11:42:00 Test Item Value Reference Range Interpretation Comments POC-GLUCOSE METER 166 mg/dL 70-110 H TESTED AT [facility] 5593 ([facility]) (test code = [place] 1538) [address] CBC W/PLT COUNT & AUTO [id number] 08:21:00 Test Item Value Reference Range Interpretation Comments WHITE BLOOD CELL COUNT ([facility]) 8.8 K/ L 3.5-10.5 (test code = 775) RED BLOOD CELL COUNT ([facility]) 3.05 M/ L 4.63-6.08 L (test code = 761) HEMOGLOBIN ([facility]) (test code = 8.6 GM/DL 13.7-17.5 L 410) HEMATOCRIT ([facility]) (test code = 27.4 % 40.1-51.0 L [...] 3438) Received comment: User comments: Slide comments:POCT-GLUCOSE [id number] 21:26:00 Test Item Value Reference Range Interpretation Comments POC-GLUCOSE METER 279 mg/dL 70-110 H TESTED AT [facility] 6720 ([facility]) (test code = ELIAS Melgoza [facility] 1538) [address] MR, ABDOMEN, [id number] 19:30:00FINAL REPORT MRI of the abdomen. CLINICAL [...] other etiologies such as masses. Signed: Eleno Dawneport Verified Date/Time: 07/13/2018 19:30:45 Reading Location: [address] Consult Reading Room Electronically signed by: ELENO DAWN M.D. on 07/03 07:30 PMPOCT-GLUCOSE [id number] 16:36:00 Test Item Value Reference Range Interpretation Comments POC-GLUCOSE METER 260 mg/dL 70-110 H TESTED AT [address]) (test code = ANGELONJ Rhona [facility] 1538) [id number] POCT-GLUCOSE [id number] 12:41:00 Test Item Value Reference Range Interpretation Comments POC-GLUCOSE METER 284 mg/dL 70-110 H TESTED AT [address]) (test code = [facility] 1538) [address] POCT-GLUCOSE [id number] 08:34:00 Test Item Value Reference Range Interpretation Comments POC-GLUCOSE METER 196 mg/dL 70-110 H TESTED AT [address] (test code = [facility] Rhona [facility] 1538) [id number] POCT-GLUCOSE [id number] 21:17:00 Test Item Value Reference Range Interpretation Comments POC-GLUCOSE METER 323 mg/dL 70-110 H Patient on insulin (ANJALI) (test code = Drip/T ESTED AT [facility] 1538) [address] [place] [address] POCT-GLUCOSE [id number] 17:51:00 Test Item Value Reference Range Interpretation Comments POC-GLUCOSE METER 256 mg/dL 70-110 H TESTED AT [facility] 6720 (ANJALI) (test code = [place] 1538) [id number] CT, [id number] 16:00:00FINAL REPORT CT scan of the abdomen [...] in the right lower lobe. Signed: Eleno Dawn Verified Date/Time: 07/12/2018 16:00:46 Reading Location: [facility] C013X Ortho Consult Reading Room U/S, [id number] 14:52:00Reason for exam:->re-evaluate prostatic abscesShould this be [...] prostatic fluid collection is identified Signed: Rigoberto Frausto Verified Date/Time: 07/12/2018 14:52:29 Reading Location: [facility] P006J Ultrasound Reading Room CT, CHEST, WITH [id number] 14:22:00Addendum BeginsREPORT STATUS:A There is a hyperenhancing focus in segment II which measures 1 cm on axial image 38. This was discussed with Dr. Bueno on 07/12/2018 at 2:21 PM. Sign ed: Diomedes Kiserort Verified Date/Time: 07/12/2018 14:22:13 Reading Location: [facility] C013Y CT Body Reading RoomAddendum [...] comparison, this would be helpful. Signed: Diomedes Kiser MDReport Verified Date/Time: 07/11/2018 09:17:12 Reading Location: [facility] C013Y CT Body Reading Room -GLUCOSE [id number] 14:01:00 Test Item Value Reference Range Interpretation Comments POC-GLUCOSE METER 246 mg/dL 70-110 H TESTED AT [place] [address] ([facility]) (test code = [facility] 1538) [id number] POCT-GLUCOSE [id number] 20:43:00 Test Item Value Reference Range Interpretation Comments POC-GLUCOSE METER 277 mg/dL 70-110 H TESTED AT [place] [address] ([facility]) (test code = [facility] 1538) [id number] POCT-GLUCOSE [id number] 17:05:00 Test Item Value Reference Range Interpretation Comments POC-GLUCOSE METER 283 mg/dL 70-110 H TESTED AT [place] [address] ([facility]) (test code = [facility] 1538) [id number] POCT-GLUCOSE [id number] 11:30:00 Test Item Value Reference Range Interpretation Comments POC-GLUCOSE METER 253 mg/dL 70-110 H TESTED AT [place] [address] [facility] (test code = ELIAS [facility] 1538) [id number] POCT-GLUCOSE [id number] 07:49:00 Test Item Value Reference Range Interpretation Comments POC-GLUCOSE METER 209 mg/dL 70-110 H TESTED AT [place] [address] (BEAKER) (test code = ELIAS [facility] 1538) [id number] POCT-GLUCOSE [id number] 21:13:00 Test Item Value Reference Range Interpretation Comments POC-GLUCOSE METER 243 mg/dL 70-110 H TESTED AT [place] [address] [facility] (test code = ELIAS [facility] 1538) [id number] URINE [id number] 15:31:00 Test Item Value Reference Range Interpretation Comments CULTURE (BEAKER) (test code = 1095) No growth POCT-GLUCOSE [id number] 12:17:00 Test Item Value Reference Range Interpretation Comments POC-GLUCOSE METER 283 mg/dL 70-110 H TESTED AT [place] [address] ([facility] (test code = [facility]IAS [facility] 1538) [address] BASIC METABOLIC [id number] 08:34:00 Test Item Value Reference Range Interpretation [...] 0-0 (BEAKER) (test code = 413) POCT-GLUCOSE [id number] 08:04:00 Test Item Value Reference Range Interpretation Comments POC-GLUCOSE METER 202 mg/dL 70-110 H TESTED AT [place] [id number] ([facility]) (test code = ELIAS [facility] 1538) [id number] POCT-GLUCOSE [id number] 21:17:00 Test Item Value Reference Range Interpretation Comments POC-GLUCOSE METER 265 mg/dL 70-110 H TESTED AT [facility] 6720 ([facility]) (test code = ELIAS [facility]go[facility] 1538) [id number] U/S, [id number] 18:00:00Please evaluate via TRUS for prostatic abscess/drainable [...] Dodge Verified Date/Time: 07/09/2018 18:00:47 Reading Location: [place] [address]J Ultrasound Reading Room POCT-GLUCOSE [id number] 16:49:00 Test Item Value Reference Range Interpretation Comments POC-GLUCOSE METER 170 mg/dL 70-110 H TESTED AT [place] [address] ([facility]) (test code = ELIAS [facility] 1538) [id number] POCT-GLUCOSE [id number] 11:38:00 Test Item Value Reference Range Interpretation Comments POC-GLUCOSE METER 246 mg/dL 70-110 H TESTED AT [place] [address] ([facility]) (test code = [facility] 1538) [id number] PROTHROMBIN [id number] 11:07:00 Test Item Value Reference Range Interpretation Comments PROTIME ([facility]) (test code = 15.7 seconds 11.7-14.7 H 759) INR ([facility]) (test code = 370) 1.3 <=5.9 RECOMMENDED COUMADIN/WARFARIN INR THERAPY RANGESSTANDARD DOSE: 2.0 - 3.0 Includes: PROPHYLAXIS forvenous thrombosis, systemic embolization; TREATMENT for venous thrombosis and/or pulmonary embolus.HIGH RISK: Target INR is 2.5-3.5 for patients with mechanical heart valves.HEMOGLOBIN [id number] 08:45:00 Test Item Value Reference Range Interpretation Comments HEMOGLOBIN A1C ([facility]) (test code = 5.5 % 4.3-6.1 368) POCT-GLUCOSE [id number] 08:18:00 Test Item Value Reference Range Interpretation Comments POC-GLUCOSE METER 210 mg/dL 70-110 H TESTED AT [place] [address] ([facility]) (test code = [facility] [employer] [facility] 1538) [id number] URINALYSIS W/ [id number] 06:28:00 Test Item Value Reference Range Interpretation [...] code = Urine, Voided 2795) HEPATIC FUNCTION [id number] 03:40:00 Test Item Value Reference Range Interpretation [...] = 49 U/L 6-55 347) BASIC METABOLIC [id number] 03:40:00 Test Item Value Reference Range Interpretation [...] PATIEN TS. CBC W/PLT COUNT & AUTO [id number] 03:20:00 Test Item Value Reference Range Interpretation [...] % 0-1 PERCENT (BEAKER) (test code = 4450) POCT-GLUCOSE [id number] 01:26:00 Test Item Value Reference Range Interpretation Comments POC-GLUCOSE METER 202 mg/dL 70-110 H TESTED AT [facility] 6720 ([facility]) (test code = [place] 1538) [id number]
[2021-09-16] MEDS ORDERED: NA CHLORIDE 0.9% 500 ML ONE (11:36)
[2021-09-16] MEDS ORDERED: ONDANSETRON 4 MG/2 ML VIAL ONE (11:36)
[2021-09-16 11:58] LABS: Absolute Lymphocytes (CBC) 0.7 K/uL (0.7-4.9); Hematocrit 36.3 % (39.6-49.0); Lymphocytes % 10.4 % (15.3-44.8); RBC Red Blood Cell Count 3.87 M/uL (4.33-5.43)
[2021-09-16 12:15] LABS: ALT/SGPT 44 U/L (12-78); AST/SGOT 37 U/L (15-37); Albumin 3.6 g/dL (3.4-5.0); Alkaline Phosphatase 77 U/L (45-117); BUN Blood Urea Nitrogen 9 mg/dL (7-18); Bicarbonate 28 mmol/L (21-32); Bilirubin Direct 0.3 mg/dL (0-0.2); Bilirubin Total 1.3 mg/dL (0.2-1.0); Glucose Level 201 mg/dL (74-106); Lipase 119 U/L (73-393); Protein, Total 7.8 g/dL (6.4-8.2); Sodium Level 139 mmol/L (136-145)
[2021-09-16 12:19] LABS: Potassium 2.6 mmol/L (3.5-5.1)
[2021-09-16] MEDS ORDERED: POTASSIUM 25 MEQ EFFERV TAB ONE (12:30)
[2021-09-16] MEDS ORDERED: KCL 20 MEQ/100 mL IVPB 100 ML IV ONE (12:32)
[2021-09-16 15:25] LABS: Urine Blood Trace-lysed (Negative); Urine Glucose Trace (Negative); Urine Protein Trace (Negative); Urine Specific Gravity 1.015 (1.005-1.030); Urine pH 5.5 (5.0-7.0)
[2021-09-16 16:55] LABS: BUN Blood Urea Nitrogen 9 mg/dL (7-18); Bicarbonate 29 mmol/L (21-32); Glucose Level 112 mg/dL (74-106); Sodium Level 140 mmol/L (136-145)
[2021-09-16 16:56] LABS: Potassium 2.7 mmol/L (3.5-5.1)
--- NOTE | 2021-09-16 17:31 | EDPHYS ---
Physician Documentation [facility] Name: Froy Hatfield Age: 61 yrs Sex: Male : 1960 Arrival Date: 09/16/2021 Time: 11:10 Bed 16 Private MD: ED Physician Nash Dsouza Historical: - Allergies: 09/16 11:14 Dairy; vg1 - Home Meds: 11:14 amlodipine oral [Active]; atorvastatin 40 mg Oral tab 1 tab once daily [Active]; vg1 carvedilol 12.5 mg Oral tab 1 tab 2 times per day [Active]; Doxycycline Oral [Active]; Eliquis Oral [Active]; Januvia 50 mg Oral tab 1 tab once daily [Active]; lisinopril 40 mg Oral tab 1 tab once daily [Active]; - PMHx: 11:14 CVA; Left sided deficits; Diabetes - IDDM; Hypertension; kidney CA; with mets to liver; vg1 Hypercholesterolemia; - Immunization history:: Client reports receiving the 2nd dose of the Covid vaccine. - Social history:: Smoking status: Patient denies any tobacco usage or history of. Vital Signs: 11:10 BP 149 / 102; Pulse 60; Resp 15; Pulse Ox 100% ; vg1 11:20 Weight 65.77 kg; Height 5 ft. 8 in. (172.72 cm); Pain 0/10; vg1 12:39 BP 117 / 96; Pulse 88; Resp 14; Pulse Ox 100% ; vg1 13:48 BP 158 / 93; Pulse 90; Resp 20; Pulse Ox 100% ; vg1 14:30 BP 158 / 98; Pulse 94; Resp 15; Pulse Ox 98% ; vg1 15:45 BP 128 / 71; Pulse 83; Resp 14; Pulse Ox 97% ; vg1 17:15 BP 149 / 93; Pulse 84; Resp 18; Pulse Ox 99% ; vg1 18:30 BP 117 / 55; Pulse 88; Resp 16; Pulse Ox 95% ; vg1 19:46 BP 105 / 57; Pulse 92; Resp 13 S; Pulse Ox 94% on R/A; vc1 20:13 BP 114 / 91; Pulse 96; Resp 14; Temp 97.7(TE); Pulse Ox 97% ; vc1 11:20 Body Mass Index 22.05 (65.77 kg, 172.72 cm) vg1 MDM: 11:24 Patient medically screened. [facility] 17:28 Data reviewed: vital signs, nurses notes. Counseling: I had a detailed discussion with abigail the patient and/or guardian regarding: the historical points, exam findings, and any diagnostic results supporting the discharge/admit diagnosis, lab results, the need for further work-up and treatment in the hospital. ED course: I discussed the patient with Dr. Sawyer whom accepted admission. . 09/16 11:24 Order name: Basic Metabolic Panel [facility] 09/16 11:24 Order name: CBC with Diff [facility] 09/16 11:24 Order name: Hepatic Function [facility] 09/16 11:24 Order name: Lipase; Complete Time: 12:22 [facility] 09/16 11:25 Order name: Basic Metabolic Panel; Complete Time: 12:22 [facility] 09/16 11:25 Order name: CBC with Automated Diff; Complete Time: 12:08 [facility] 09/16 11:25 Order name: Liver (Hepatic) Function; Complete Time: 12:22 [facility] 09/16 15:25 Order name: Urine Dipstick-Ancillary; Complete Time: 15:59 [facility] 09/16 16:00 Order name: BMP; Complete Time: 17:18 [facility] 09/16 17:22 Order name: SARS-COV-2 RT PCR (Document "Date of Onset" if Symptomatic) [facility] 09/16 17:22 Order name: SARS-COV-2 RT PCR; Complete Time: 19:25 [facility] 09/16 11:24 Order name: IV Saline Lock; Complete Time: 11:55 [facility] 09/16 11:24 Order name: Labs collected and sent; Complete Time: 11:55 [facility] 09/16 11:24 Order name: Urine Dipstick-Ancillary (obtain specimen); Complete Time: 15:33 [facility] Administered Medications: 11:49 Drug: NS 0.9% 500 ml Route: IV; Rate: bolus; Site: right forearm; vg1 14:54 Follow up: IV Status: Completed infusion; IV Intake: 500ml vg1 11:50 Drug: Zofran (Ondansetron) 4 mg Route: IVP; Site: right forearm; vg1 12:39 Follow up: Response: No adverse reaction; Marked relief of symptoms vg1 12:37 Drug: Potassium Chloride 20 mEq Route: IV; Rate: calculated rate; Site: right forearm; vg1 14:54 Follow up: IV Status: Completed infusion; IV Intake: 100ml vg1 12:39 Drug: K-Lyte (potassium) Effervescent Tablet 50 mEq Route: PO; vg1 14:54 Follow up: Response: No adverse reaction vg1 Disposition: 09/17 07:30 Co-signature as Attending Physician, Nash Dsouza MD I agree with the assessment and rn plan of care. Attestation: The patient's history, exam findings, diagnostics, and a summary of any interventions or procedures was reviewed in detail with Dwight LEGGETT. Disposition Summary: 09/16/21 17:30 Hospitalization Ordered Hospitalization Status: Observation [facility] Provider: Juan Jose Sawyer Location: Telemetry/MedSurg (observation) [facility] Condition: Stable jmm Problem: new jmm Symptoms: are unchanged jmm Bed/Room Type: Standard [facility] Room Assignment: 217(09/16/21 20:07) Diagnosis - Vomiting jmm - Diarrhea, unspecified jmm - Dehydration jmm - Hypokalemia jmm - Hypocalcemia jm Forms: - Medication Reconciliation Form jmm - SBAR form jmm Signatures: Dispatcher [employer] EDMS Ana Luisa Reed RN Dwight Morse PA PA [facility] Nash Dsouza MD MD rn Attema, Lee, J2EE SOFTWARE ENGINEER-C J2EE SOFTWARE ENGINEER-Cla1 Rosaura Bright, RN RN vg1 Corrections: (The following items were deleted from the chart) 09/16 20:07 17:30 jmm mw
--- NOTE | 2021-09-16 17:31 | ER ---
Nurse's Notes [facility] Name: Froy Hatfield Age: 61 yrs Sex: Male : 1960 Arrival Date: 09/16/2021 Time: 11:10 Bed 16 Private MD: Diagnosis: Vomiting;Diarrhea, unspecified;Dehydration;Hypokalemia;Hypocalcemia Presentation: 09/16 11:10 Chief complaint: EMS states: pt is from home; N/V x 2 days; pt states 'trouble vg1 urinating since yesterday'. Coronavirus screen: Vaccine status: Patient reports receiving the 2nd dose of the covid vaccine. Client denies travel out of the [place] in the last 14 days. Ebola Screen: Patient negative for fever greater than or equal to 101.5 degrees Fahrenheit, and additional compatible Ebola Virus Disease symptoms. Initial Sepsis Screen: Does the patient meet any 2 criteria? No. Patient's initial sepsis screen is negative. Does the patient have a suspected source of infection? No. Patient's initial sepsis screen is negative. Risk Assessment: Do you want to hurt yourself or someone else? Patient reports no desire to harm self or others. Onset of symptoms was September 14, 2021. 11:10 Method Of Arrival: EMS: [facility] vg1 11:10 Acuity: JO 3 vg1 Triage Assessment: 11:14 General: Appears in no apparent distress. uncomfortable, Behavior is calm, cooperative. vg1 Pain: Denies pain. EENT: No signs and/or symptoms were reported regarding the EENT system. Neuro: Level of Consciousness is awake, alert, obeys commands, Oriented to person, place, time, situation. Cardiovascular: Patient's skin is warm and dry. Respiratory: Airway is patent Respiratory effort is even, unlabored. GI: Abdomen is non-distended, Reports diarrhea, nausea, vomiting. : Reports inability to void, since yesterday 'not peeing as often as I do'. Derm: Skin is intact, Skin is pink, warm \\T\\ dry. Musculoskeletal: Circulation, motion, and sensation intact. Historical: - Allergies: 11:14 Dairy; vg1 - Home Meds: 11:14 amlodipine oral [Active]; atorvastatin 40 mg Oral tab 1 tab once daily [Active]; vg1 carvedilol 12.5 mg Oral tab 1 tab 2 times per day [Active]; Doxycycline Oral [Active]; Eliquis Oral [Active]; Januvia 50 mg Oral tab 1 tab once daily [Active]; lisinopril 40 mg Oral tab 1 tab once daily [Active]; - PMHx: 11:14 CVA; Left sided deficits; Diabetes - IDDM; Hypertension; kidney CA; with mets to liver; vg1 Hypercholesterolemia; - Immunization history:: Client reports receiving the 2nd dose of the Covid vaccine. - Social history:: Smoking status: Patient denies any tobacco usage or history of. Screenin:19 Abuse screen: Denies threats or abuse. Nutritional screening: No deficits noted. vg1 Tuberculosis screening: No symptoms or risk factors identified. Fall Risk No fall in past 12 months (0 pts). No secondary diagnosis (0 pts). IV access (20 points). Ambulatory Aid- None/Bed Rest/Nurse Assist (0 pts). Gait- Normal/Bed Rest/Wheelchair (0 pts) Mental Status- Oriented to own ability (0 pts). Total Ahumada Fall Scale indicates No Risk (0-24 pts). Assessment: 11:19 Reassessment: SEE TRIAGE. vg1 12:39 Reassessment: Patient appears in no apparent distress at this time. No changes from vg1 previously documented assessment. Patient and/or family updated on plan of care and expected duration. Pain level reassessed. Patient is alert, oriented x 3, equal unlabored respirations, skin warm/dry/pink. 13:48 Reassessment: Patient appears in no apparent distress at this time. No changes from vg1 previously documented assessment. Patient and/or family updated on plan of care and expected duration. Pain level reassessed. Patient is alert, oriented x 3, equal unlabored respirations, skin warm/dry/pink. 14:55 Reassessment: Patient appears in no apparent distress at this time. No changes from vg1 previously documented assessment. Patient and/or family updated on plan of care and expected duration. Pain level reassessed. Patient is alert, oriented x 3, equal unlabored respirations, skin warm/dry/pink. 17:16 Reassessment: Patient appears in no apparent distress at this time. No changes from vg1 previously documented assessment. Patient and/or family updated on plan of care and expected duration. Pain level reassessed. Patient is alert, oriented x 3, equal unlabored respirations, skin warm/dry/pink. Patient denies pain at this time. 18:15 Reassessment: Patient appears in no apparent distress at this time. No changes from vg1 previously documented assessment. Patient and/or family updated on plan of care and expected duration. Pain level reassessed. Patient is alert, oriented x 3, equal unlabored respirations, skin warm/dry/pink. Patient denies pain at this time. 19:15 Reassessment: Patient appears in no apparent distress at this time. No changes from vc1 previously documented assessment. Patient and/or family updated on plan of care and expected duration. Pain level reassessed. Vital Signs: 11:10 BP 149 / 102; Pulse 60; Resp 15; Pulse Ox 100% ; vg1 11:20 Weight 65.77 kg; Height 5 ft. 8 in. (172.72 cm); Pain 0/10; vg1 12:39 BP 117 / 96; Pulse 88; Resp 14; Pulse Ox 100% ; vg1 13:48 BP 158 / 93; Pulse 90; Resp 20; Pulse Ox 100% ; vg1 14:30 BP 158 / 98; Pulse 94; Resp 15; Pulse Ox 98% ; vg1 15:45 BP 128 / 71; Pulse 83; Resp 14; Pulse Ox 97% ; vg1 17:15 BP 149 / 93; Pulse 84; Resp 18; Pulse Ox 99% ; vg1 18:30 BP 117 / 55; Pulse 88; Resp 16; Pulse Ox 95% ; vg1 19:46 BP 105 / 57; Pulse 92; Resp 13 S; Pulse Ox 94% on R/A; vc1 20:13 BP 114 / 91; Pulse 96; Resp 14; Temp 97.7(TE); Pulse Ox 97% ; vc1 11:20 Body Mass Index 22.05 (65.77 kg, 172.72 cm) 1 ED Course: 11:10 Patient arrived in ED. vg1 11:11 Dwight Lopez PA is PHCP. [facility] 11:11 Nash Dsouza MD is Attending Physician. jmm 11:12 Triage completed. vg1 11:14 Arm band placed on. vg1 11:19 Patient has correct armband on for positive identification. Bed in low position. Call vg1 light in reach. Side rails up X 1. 11:19 No provider procedures requiring assistance completed. vg1 11:20 Rosaura Bright RN is Primary Nurse. vg1 11:48 Inserted saline lock: 24 gauge in right forearm, using aseptic technique. vg1 17:29 Juan Jose Sawyer is Hospitalizing Provider. [facility] 19:29 Primary Nurse role handed off by Rosaura Bright RN cs9 19:50 SARS-COV-2 RT PCR (Document "Date of Onset" if Symptomatic) Sent. vc1 19:50 Basic Metabolic Panel Sent. vc1 19:50 CBC with Diff Sent. vc1 19:50 Hepatic Function Sent. vc1 21:01 Patient admitted, IV remains in place. vc1 Administered Medications: 11:49 Drug: NS 0.9% 500 ml Route: IV; Rate: bolus; Site: right forearm; vg1 14:54 Follow up: IV Status: Completed infusion; IV Intake: 500ml vg1 11:50 Drug: Zofran (Ondansetron) 4 mg Route: IVP; Site: right forearm; vg1 12:39 Follow up: Response: No adverse reaction; Marked relief of symptoms vg1 12:37 Drug: Potassium Chloride 20 mEq Route: IV; Rate: calculated rate; Site: right forearm; vg1 14:54 Follow up: IV Status: Completed infusion; IV Intake: 100ml vg1 12:39 Drug: K-Lyte (potassium) Effervescent Tablet 50 mEq Route: PO; vg1 14:54 Follow up: Response: No adverse reaction vg1 Intake: 14:54 IV: 100ml; Total: 100ml. vg1 14:54 IV: 500ml; Total: 600ml. vg1 Outcome: 17:30 Decision to Hospitalize by Provider. abigail 21:00 Admitted to Med/surg via stretcher, room 217, Report called to LORENA Melgoza vc1 21:00 Condition: good 21:00 Instructed on the need for admit. 21:27 Patient left the ED. vc1 Signatures: Dwight Lopez PA PA jmm Garcia, Victoria, RN RN vg1 Lynn Brooks cs9 Ysabel Garner RN RN vc1
--- NOTE | 2021-09-16 19:43 | P.HP ---
Certification for Inpatient Patient admitted to: Observation With expected LOS: <2 Midnights Patient will require the following post-hospital care: None Practitioner: I am a practitioner with admitting privileges, knowledge of patient current condition, hospital course, and medical plan of care. Services: Services provided to patient in accordance with Admission requirements found in Title 42 Section 412.3 of the Code of Federal Regulations Patient History Date of Service: 09/16/21 Primary Care Provider: Dr. Howard Reason for admission: N/V/D, hypokalemia History of Present Illness: 61-year-old -[place]ian male with history of CVA resulting left-sided deficits, diabetes mellitus type 2insulin-dependent, hypertension, renal cancer with metastasis to liver on oral chemotherapy and hyperlipidemia presents the emergency department for a 3-day history of nausea vomiting diarrhea. Patient denies any melena, hematochezia, hematemesis or coffee-ground emesis, denies any abdominal pain reports he has these episodes occasionally as he takes an oral chemo medication daily for his renal cancer for the last few years. Patient was evaluated in the emergency department his labs were significant for white blood cell count 7.2 hemoglobin 11.9 hematocrit 36.3 potassium 2.6 glucose 200 calcium 7.1T bili 1.3D bili 0.3 - for Covid. Patient still with some nausea vomiting not tolerating by mouth at this time ED provider wishes to admit under observation for dehydration, weakness, hypokalemia. Allergies No Known Allergies Allergy (Verified 12/23/17 00:36) Home Medications: lisinopriL [Prinivil*] 40 mg PO DAILY 11/03/16 Aspirin 325 mg PO DAILY 12/23/17 Amlodipine Besylate 1 tab PO DAILY 07/07/18 Atorvastatin Calcium [Lipitor] 40 mg PO BEDTIME 07/07/18 Cabozantinib S-Malate [Cabometyx] 40 mg PO DAILY 03/19/21 Carvedilol [Coreg] 1 tab PO BID 03/19/21 Omeprazole [Prilosec] 40 mg PO DAILY 03/19/21 Sitagliptin Phosphate [Januvia] 50 mg PO DAILY 03/19/21 Apixaban [Eliquis] 5 mg PO SEECOM 30 Days #1 tab.ds.pk 03/20/21 Magnesium Chloride [Mag Delay] 64 mg PO BID 30 Days #60 tablet. 03/20/21 - Past Medical/Surgical History Diabetic: Yes -: HTN -: CVA -: Diabetes -: Cataracts -: Partial nephrectomy. Psychosocial/ Personal History: Patient lives at home with his sister - Family History Mother -: Hypertension, Diabetes Father -: Hypertension, Diabetes Sister -: Cancer Brother -: Cancer - Social History Alcohol use: No CD- Drugs: No Caffeine use: Yes Place of Residence: Home Review of Systems 10-point ROS is otherwise unremarkable General: Weakness, Malaise Gastrointestinal: Nausea, Vomiting, Diarrhea Physical Examination - Physical Exam General: Alert, In no apparent distress, Oriented x3 HEENT: Atraumatic, PERRLA, Mucous membr. moist/pink, EOMI, Sclerae nonicteric Neck: Supple, 2+ carotid pulse no bruit, No LAD, Without JVD or thyroid abnormality Respiratory: Clear to auscultation bilaterally, Normal air movement Cardiovascular: Regular rate/rhythm, Normal S1 S2 Gastrointestinal: Normal bowel sounds, No tenderness, No rebound, No guarding Musculoskeletal: No tenderness Integumentary: No rashes Neurological: Normal gait, Normal speech, Normal affect, Abnormal strength (Left-sided weakness from previous CVA) - Studies Laboratory Data (last 24 hrs) 09/16/21 16:30: Sodium 140, Potassium 2.7 L*, BUN 9, Creatinine 0.84, Glucose 112 H 09/16/21 11:40: WBC 7.20, Hgb 11.9 L, Hct 36.3 L, Plt Count 238 09/16/21 11:40: Sodium 139, Potassium 2.6 L*, BUN 9, Creatinine 0.94, Glucose 201 H, Total Bilirubin 1.3 H, AST 37, ALT 44, Alkaline Phosphatase 77, Lipase 119 Assessment and Plan - Plan Assessment: Dehydration, hypokalemia secondary to N/V/D Diabetes type 2insulin-dependent History of CVA with left-sided weakness Hypertension Renal cancer with mets to liver on oral chemo Hyperlipidemia Plan: Dehydration, hypokalemia secondary to N/V/D: Clear liquid diet advance as tolerated, dextrose containing IV fluids with potassium. Potassium and magnesium protocols in place. Patient reports he has had episode similar to this while having to take his oral chemo medication denies any abdominal pain or tenderness on exam. ROS otherwise negative. Diabetes type 2insulin-dependent: ACHS Accu-Chek, sliding scale insulin. History of CVA with left-sided weakness: Obtain and continue medication, patient is wheelchair-bound, sister helps care for him at home. Hypertension: Continue home meds Renal cancer with mets to liver on oral chemo: Continue oral chemo regimen once confirmed Hyperlipidemia: Continue home medications as appropriate DVT PPX: Lovenox Code status: Full Discharge Plan: Home Plan to discharge in: 24 Hours - Advance Directives Does patient have a Living Will: No Does patient have a Durable POA for Healthcare: No - Code Status/Comfort Care Code Status Assessed: Yes (Full code) Critical Care: No Time Spent Managing Pts Care (In Minutes): 55
[2021-09-16] MEDS: INSULIN -REGULAR HUMAN 50 UNIT/0.5 ML ML SQ SCH (21:49)
[2021-09-16] MEDS ORDERED: ONDANSETRON 4 MG/2 ML VIAL IV PRN (21:49)
[2021-09-16 22:33] VITALS: BMI 33.4
[2021-09-16] MEDS: D5.45NS W/KCL 20MEQ 1,000 ML IV SCH (23:29)
[2021-09-16] MEDS ORDERED: KCL 20 MEQ/100 mL IVPB 20 MEQ/100 ML BAG IV SCH (23:45)
[2021-09-17] MEDS: KCL 20 MEQ/100 mL IVPB 20 MEQ/100 ML BAG IV SCH ×2 (00:11→02:24)
[2021-09-17 03:57] LABS: Absolute Lymphocytes (CBC) 1.7 K/uL (0.7-4.9); Hematocrit 34.3 % (39.6-49.0); Lymphocytes % 23.7 % (15.3-44.8); MPV 9.3 fL (7.6-11.3); RBC Red Blood Cell Count 3.66 M/uL (4.33-5.43)
[2021-09-17] MEDS ORDERED: KCL 20 MEQ/100 mL IVPB 20 MEQ/100 ML BAG IV SCH (04:00)
[2021-09-17 04:27] LABS: Albumin 3.4 g/dL (3.4-5.0); Bilirubin Total 1.1 mg/dL (0.2-1.0); Phosphorus 2.2 mg/dL (2.5-4.9); Potassium 3.3 mmol/L (3.5-5.1); Protein, Total 7.5 g/dL (6.4-8.2); Thyroid Stimulating Hormone 1.93 uIU/mL (0.360-3.740)
[2021-09-17 04:36] LABS: Magnesium 0.6 mg/dL (1.8-2.4)
[2021-09-17] MEDS ORDERED: MAGNESIUM 50% 3 GM in NA CHLORIDE 0.9% 100 ML IV ONE (04:43)
[2021-09-17] MEDS: MAGNESIUM SULFATE 1 gm IVPB 1 GM/100 ML BAG IV SCH ×3 (05:15→08:47)
[2021-09-17] MEDS: INSULIN -REGULAR HUMAN 50 UNIT/0.5 ML ML SQ SCH ×4 (07:30→21:00)
[2021-09-17] MEDS: D5.45NS W/KCL 20MEQ 1,000 ML IV SCH ×2 (08:48→17:49)
[2021-09-17] MEDS ORDERED: ENOXAPARIN 40 MG/0.4 ML SQ SCH (09:00)
[2021-09-17] MEDS: POTASS/SODIUM PHOSPHATE 1 PKT POWD.PACK PO SCH ×3 (11:44→13:46)
--- NOTE | 2021-09-17 16:00 | P.PN ---
Subjective Date of Service: 09/17/21 Primary Care Provider: Dr. Howard Chief Complaint: N/V/D, hypokalemia Patient has not tolerated feeding. He still complaining nausea, no vomiting. He states the diarrhea has stopped. He denies any abdominal pain. Physical Examination - Vital Signs Temperature: 97.1 F Blood Pressure: 113/69 Pulse: 95 Respirations: 18 Pulse Ox (%): 99 - Physical Exam General: Alert, In no apparent distress, Oriented x3 HEENT: Mucous membr. moist/pink Neck: JVD not distended Respiratory: Clear to auscultation bilaterally, Normal air movement Cardiovascular: No edema, Regular rate/rhythm, Normal S1 S2 Gastrointestinal: Soft and benign, Non-distended Musculoskeletal: No swelling, No tenderness Integumentary: No rashes, No cyanosis Neurological: Normal speech, Normal strength at 5/5 x4 extr, Cranial nerves 3-12 intact - Studies Laboratory Data (last 24 hrs) 09/16/21 16:30: Sodium 140, Potassium 2.7 L*, BUN 9, Creatinine 0.84, Glucose 112 H Assessment And Plan - Current Problems (Diagnosis) (1) Hypokalemia Current Visit: Yes Status: Acute (2) Hypomagnesemia Current Visit: Yes Status: Acute (3) Chemotherapy induced nausea and vomiting Current Visit: Yes Status: Acute (4) Chemotherapy induced diarrhea Current Visit: Yes Status: Acute (5) Renal cell carcinoma Current Visit: Yes Status: Acute (6) Diabetes Onset Date: 12/23/17 Current Visit: No Status: Chronic Qualifiers: Diabetes mellitus type: type 2 Diabetes mellitus fdc insulin use: without fdc use Diabetes mellitus complication status: without complication Qualified Code(s): E11.9 - Type 2 diabetes mellitus without complications (7) HTN (hypertension) Onset Date: 12/23/17 Current Visit: No Status: Chronic Qualifiers: Hypertension type: essential hypertension - Plan Continue supportive measures with IV fluid. Monitor and correct electrolytes-potassium, phosphorus and magnesium. Advance diet as tolerated. No leukocytosis, no fever, no sepsis. No indication for antibiotic. Reconcile and continue home medications including Eliquis. Insulin sliding scale for glucose management.
[2021-09-17] MEDS ORDERED: Magnesium Sulfate 2gm IVPB 2 G/50 ML BAG IV ONE (17:00)
[2021-09-17] MEDS: APIXABAN 5 MG TABLET PO SCH (23:12)
[2021-09-17] MEDS: ATORVASTATIN 40 MG TAB PO SCH (23:12)
[2021-09-17] MEDS: carvediloL 12.5 MG TAB PO SCH (23:12)
[2021-09-18] MEDS ORDERED: MAGNESIUM SULFATE 1 gm IVPB 1 GM/100 ML BAG IV ONE (02:18)
[2021-09-18] MEDS: D5.45NS W/KCL 20MEQ 1,000 ML IV SCH ×3 (04:51→23:49)
[2021-09-18 05:22] LABS: Absolute Lymphocytes (CBC) 1.4 K/uL (0.7-4.9); Hematocrit 28.3 % (39.6-49.0); Lymphocytes % 30.5 % (15.3-44.8); MPV 8.8 fL (7.6-11.3)
[2021-09-18 05:34] LABS: ALT/SGPT 36 U/L (12-78); AST/SGOT 35 U/L (15-37); Albumin 2.8 g/dL (3.4-5.0); Alkaline Phosphatase 56 U/L (45-117); BUN Blood Urea Nitrogen 6 mg/dL (7-18); Bicarbonate 30 mmol/L (21-32); Bilirubin Total 1.3 mg/dL (0.2-1.0); Glucose Level 113 mg/dL (74-106); Magnesium 1.7 mg/dL (1.8-2.4); Phosphorus 2.2 mg/dL (2.5-4.9); Potassium 3.6 mmol/L (3.5-5.1); Sodium Level 141 mmol/L (136-145)
[2021-09-18] MEDS: INSULIN -REGULAR HUMAN 50 UNIT/0.5 ML ML SQ SCH ×4 (07:30→20:18)
[2021-09-18] MEDS: lisinopriL 10 MG TAB PO SCH (08:07)
[2021-09-18] MEDS: AMLODIPINE 10 MG TAB PO SCH (08:07)
[2021-09-18] MEDS: SITAGLIPTIN PHOS 100 MG TAB PO SCH (08:10)
[2021-09-18] MEDS: APIXABAN 5 MG TABLET PO SCH ×2 (08:10→20:37)
[2021-09-18] MEDS: PANTOPRAZOLE 40MG TABLET PO SCH (08:10)
[2021-09-18] MEDS: carvediloL 12.5 MG TAB PO SCH ×2 (08:10→20:36)
[2021-09-18] MEDS: POTASS/SODIUM PHOSPHATE 1 PKT POWD.PACK PO SCH ×3 (08:11→10:55)
[2021-09-18] MEDS ORDERED: POTASSIUM CL SA 10 MEQ TAB PO ONE (09:00)
[2021-09-18] MEDS ORDERED: LOPERAMIDE HCL 1 MG/5 ML UCUP PO SCH (09:00)
[2021-09-18] MEDS: LOPERAMIDE HCL 2 MG CAPSULE PO SCH (09:57)
[2021-09-18] MEDS: Cabozantinib S-Malate [Cabometyx] 40 MG Tablet PO SCH (09:59)
[2021-09-18] MEDS ORDERED: POTASSIUM PHOS 30 MM in NA CHLORIDE 0.9% 500 ML IV ONE (13:49)
[2021-09-18] MEDS ORDERED: CALCIUM GLUC 10% INJ 9.3 MEQ in NA CHLORIDE 0.9% 100 ML IV ONE (13:49)
--- NOTE | 2021-09-18 13:51 | P.PN ---
Subjective Date of Service: 09/18/21 Primary Care Provider: Dr. Howard Chief Complaint: N/V/D, hypokalemia Subjective: No new changes, No C/O voiced (Tolerating p.o. well this morning) Physical Examination - Vital Signs Temperature: 97.5 F Blood Pressure: 121/68 Pulse: 89 Respirations: 18 Pulse Ox (%): 98 Assessment And Plan Discharge Plan: Home - Code Status/Comfort Care Code Status: Full Code Physician Review: Patient Assessed, Agree with Above Assessment and Plan Physician Review Additional Text: 09/18/21 13:46 - Physical Exam General: Alert, In no apparent distress, Oriented x3 HEENT: Mucous membr. moist/pink Neck: JVD not distended Respiratory: Clear to auscultation bilaterally, Normal air movement Cardiovascular: No edema, Regular rate/rhythm, Normal S1 S2 Gastrointestinal: Soft and benign, Non-distended Musculoskeletal: No swelling, No tenderness Integumentary: No rashes, No cyanosis Neurological: Normal speech, Normal strength at 5/5 x4 extr, Cranial nerves 3-12 intact Assessment And Plan - Current Problems (Diagnosis) (1) Hypokalemia Current Visit: Yes Status: Acute (2) Hypomagnesemia Current Visit: Yes Status: Acute (3) Chemotherapy induced nausea and vomiting Current Visit: Yes Status: Acute (4) Chemotherapy induced diarrhea Current Visit: Yes Status: Acute (5) Renal cell carcinoma Current Visit: Yes Status: Acute (6) Diabetes Onset Date: 12/23/17 Current Visit: No Status: Chronic Qualifiers: Diabetes mellitus type: type 2 Diabetes mellitus nursing home insulin use: without clutch specialist use Diabetes mellitus complication status: without complication Qualified Code(s): E11.9 - Type 2 diabetes mellitus without complications (7) HTN (hypertension) Onset Date: 12/23/17 Current Visit: No Status: Chronic Qualifiers: Hypertension type: essential hypertension Plan Tolerating p.o. better today, continue to monitor Daughter discussed with, she is wanting etiology of patient persistent nausea, possibility of it being related to patient chemo explained to her Renal function remained stable, doubt any renal obstruction despite renal cell carcinoma Asked family insisted, call placed to patient oncologistDr. Ishaan Cross at [phone] , who felt there have been fear of the renal cancer enclosing the loop of bowel although responding to the chemo better recent CT was not done -If tolerating p.o. well, no need for repeat CT now back can be done as outpatient continue supportive measures with IV fluid. We gave replete-potassium, phosphorus and magnesium. Increase p.o. magnesium to 4 times daily Advance diet as tolerated. continue home medications including Eliquis. Insulin sliding scale for glucose management. 09/18/21 13:51 09/18/21 13:59 Time Spent Managing PTS Care (In Minutes): 35
--- NOTE | 2021-09-18 17:29 | RAD REPORT ---
EXAM DESCRIPTION: CTChest Abdomen Pelvis W Cont - 09/18/2021 5:13 pm CLINICAL HISTORY: hx of renal cancer with mets , r/o bowel obstructi COMPARISON: Abdomen Pelvis W Contrast dated 07/07/2018 TECHNIQUE: CT of the chest, abdomen, and pelvis was performed. All CT scans are performed using dose optimization technique as appropriate and may include automated exposure control or mA/KV adjustment according to patient size. FINDINGS: Thorax: Chest Wall: No abnormal mass Lungs: No acute abnormality. Pleura: No effusions or pneumothorax. Amanda/Mediastinum: No lymphadenopathy. Aorta/Pulmonary Arteries: Unremarkable Heart: Normal size. Coronary artery calcifications. Abdomen/Pelvis: Liver: Metastatic lesion in the right hepatic lobe measuring 2.8 cm. Other lesions noted. No comparis ons. Biliary: Cholecystectomy Stomach: No significant focal abnormality. Duodenum: No significant focal abnormality. Pancreas: No significant abnormality. Spleen: No significant abnormality. Adrenal: No suspicious lesions. Kidney/ureter: Right renal mass extending into the right renal vein and IVC which is expanded. The ma ss including its extension to the IVC measures 10.6 cm. Nodules present in the right pararenal space consistent with metastatic disease. Retroperitoneum: No retroperitoneal adenopathy. Vascular: No aneurysm. Vascular calcifications are noted. Bowel: Multiple air-fluid levels are present within the colon. There is also fluid within the rectum. Nondilated small bowel.. Peritoneum: Omental implant adjacent to the colon measures 2 cm. Bladder: Grossly unremarkable. Reproductive: Prostatomegaly. Bones: No acute fracture. Other: n/a IMPRESSION: 1. No acute findings within the chest or bowel obstruction. 2. Air-fluid levels within the colon may reflect diarrheal disease. 3. Locally aggressive right renal mass with direct extension into the right renal vein and IVC. Evide nce of metastatic disease including liver lesions and omental and retroperitoneal implants.
[2021-09-18] MEDS: MAGNESIUM CHLORIDE 64 MG TAB PO SCH ×2 (17:49→20:37)
[2021-09-18] MEDS: ATORVASTATIN 40 MG TAB PO SCH (20:36)
[2021-09-19 06:00] LABS: Absolute Lymphocytes (CBC) 1.2 K/uL (0.7-4.9); Lymphocytes % 25.1 % (15.3-44.8); MPV 8.8 fL (7.6-11.3); RBC Red Blood Cell Count 2.74 M/uL (4.33-5.43)
[2021-09-19 06:23] LABS: ALT/SGPT 38 U/L (12-78); AST/SGOT 32 U/L (15-37); Albumin 2.6 g/dL (3.4-5.0); Alkaline Phosphatase 59 U/L (45-117); BUN Blood Urea Nitrogen 7 mg/dL (7-18); Bicarbonate 29 mmol/L (21-32); Bilirubin Total 0.9 mg/dL (0.2-1.0); Glucose Level 108 mg/dL (74-106); Magnesium 1.8 mg/dL (1.8-2.4); Phosphorus 3.4 mg/dL (2.5-4.9); Potassium 4.3 mmol/L (3.5-5.1); Protein, Total 5.9 g/dL (6.4-8.2); Sodium Level 142 mmol/L (136-145)
[2021-09-19] MEDS: INSULIN -REGULAR HUMAN 50 UNIT/0.5 ML ML SQ SCH ×4 (07:30→20:18)
[2021-09-19] MEDS: D5.45NS W/KCL 20MEQ 1,000 ML IV SCH (09:49)
[2021-09-19] MEDS: MAGNESIUM CHLORIDE 64 MG TAB PO SCH ×4 (09:58→20:18)
[2021-09-19] MEDS: AMLODIPINE 10 MG TAB PO SCH (09:58)
[2021-09-19] MEDS: APIXABAN 5 MG TABLET PO SCH ×2 (09:59→20:18)
[2021-09-19] MEDS: LOPERAMIDE HCL 2 MG CAPSULE PO SCH (09:59)
[2021-09-19] MEDS: carvediloL 12.5 MG TAB PO SCH ×2 (09:59→20:17)
[2021-09-19] MEDS: lisinopriL 10 MG TAB PO SCH (09:59)
[2021-09-19] MEDS: PANTOPRAZOLE 40MG TABLET PO SCH (10:00)
[2021-09-19] MEDS: SITAGLIPTIN PHOS 100 MG TAB PO SCH (10:00)
[2021-09-19] MEDS: Cabozantinib S-Malate [Cabometyx] 40 MG Tablet PO SCH (10:00)
--- NOTE | 2021-09-19 10:29 | P.PN ---
Subjective Date of Service: 09/19/21 Primary Care Provider: Dr. Howard Chief Complaint: N/V/D, hypokalemia Subjective: No new changes, No C/O voiced Physical Examination - Vital Signs Temperature: 97.9 F Blood Pressure: 131/73 Pulse: 86 Respirations: 18 Pulse Ox (%): 97 Assessment And Plan Physician Review: Patient Assessed, Agree with Above Assessment and Plan Physician Review Additional Text: 09/18/21 13:46 - Physical Exam General: Alert, In no apparent distress, Oriented x3 HEENT: Mucous membr. moist/pink Neck: JVD not distended Respiratory: Clear to auscultation bilaterally, Normal air movement Cardiovascular: No edema, Regular rate/rhythm, Normal S1 S2 Gastrointestinal: Soft and benign, Non-distended Musculoskeletal: No swelling, No tenderness Integumentary: No rashes, No cyanosis Neurological: Normal speech, Normal strength at 5/5 x4 extr, Cranial nerves 3-12 intact Assessment And Plan - Current Problems (Diagnosis) (1) Hypokalemia Current Visit: Yes Status: Acute (2) Hypomagnesemia Current Visit: Yes Status: Acute (3) Chemotherapy induced nausea and vomiting Current Visit: Yes Status: Acute (4) Chemotherapy induced diarrhea Current Visit: Yes Status: Acute (5) Renal cell carcinoma Current Visit: Yes Status: Acute (6) Diabetes Onset Date: 12/23/17 Current Visit: No Status: Chronic Qualifiers: Diabetes mellitus type: type 2 Diabetes mellitus generation technologist insulin use: without mcfp use Diabetes mellitus complication status: without complication Qualified Code(s): E11.9 - Type 2 diabetes mellitus without complications (7) HTN (hypertension) Onset Date: 12/23/17 Current Visit: No Status: Chronic Qualifiers: Hypertension type: essential hypertension Plan -will replete calcium repleted -continue to monitor -Hemoglobin trending down to 8.7 from 11.3 on admission, CT of the abdomen shows worsening and aggression of the renal cancer with invasion into the IVC. I called Dr. Quirospatient oncologist office again today to discuss CT findings We await callback Continue to monitor patient May need transfer or discharge home if not seen expected to be done now 09/18/21 Daughter discussed with, she is wanting etiology of patient persistent nausea, possibility of it being related to patient chemo explained to her Renal function remained stable, doubt any renal obstruction despite renal cell carcinoma Asked family insisted, call placed to patient oncologistDr. Ishaan Cross at [phone]- ( Dr Cross called -who felt there have been fear of the renal cancer enclosing the loop of bowel although responding to the chemo better now) -If tolerating p.o. well, no need for repeat CT now back can be done as outpatient continue supportive measures with IV fluid. We gave replete-potassium, phosphorus and magnesium. Increase p.o. magnesium to 4 times daily Advance diet as tolerated. continue home medications including Eliquis. Insulin sliding scale for glucose management. 09/18/21 13:51 09/18/21 13:59 09/19/21 10:25
[2021-09-19] MEDS: ATORVASTATIN 40 MG TAB PO SCH (20:20)
[2021-09-19] MEDS: CALCIUM CARBONATE CHEW 500MG TAB PO SCH (20:21)
[2021-09-20] MEDS: D5.45NS W/KCL 20MEQ 1,000 ML IV SCH (05:45)
[2021-09-20] MEDS: INSULIN -REGULAR HUMAN 50 UNIT/0.5 ML ML SQ SCH ×2 (07:30→11:30)
[2021-09-20] MEDS: Cabozantinib S-Malate [Cabometyx] 40 MG Tablet PO SCH (09:25)
[2021-09-20] MEDS: carvediloL 12.5 MG TAB PO SCH (09:25)
[2021-09-20] MEDS: LOPERAMIDE HCL 2 MG CAPSULE PO SCH (09:26)
[2021-09-20] MEDS: SITAGLIPTIN PHOS 100 MG TAB PO SCH (09:26)
[2021-09-20] MEDS: APIXABAN 5 MG TABLET PO SCH (09:26)
[2021-09-20] MEDS: PANTOPRAZOLE 40MG TABLET PO SCH (09:27)
[2021-09-20] MEDS: AMLODIPINE 10 MG TAB PO SCH (09:27)
[2021-09-20] MEDS: CALCIUM CARBONATE CHEW 500MG TAB PO SCH (09:27)
[2021-09-20] MEDS: lisinopriL 10 MG TAB PO SCH (09:28)
[2021-09-20] MEDS ORDERED: CALCIUM GLUC 10% INJ 9.3 MEQ in NA CHLORIDE 0.9% 100 ML IV ONE (10:00)
[2021-09-20] MEDS ORDERED: CALCIUM GLUC IV ONE (10:00)
[2021-09-20] MEDS ORDERED: NA CHLORIDE 0.9% IV ONE (10:00)
[2021-09-20] MEDS: MAGNESIUM CHLORIDE 64 MG TAB PO SCH (12:00)
[2021-09-20 12:08] VITALS: O2SAT 96
[2021-09-20 12:13] VITALS: BP 129/79; TEMP 97.5
--- NOTE | 2021-09-20 13:20 | P.DS ---
Admission Date: 09/17/21 Discharge Date: 09/20/21 Primary Care Provider: Dr. Howard Disposition: ROUTINE DISCHARGE Discharge Condition: FAIR Reason for Admission: N/V/D, hypokalemia Hospital Course: Hospital course Patient with history of metastatic renal cancer on chemotherapy admitted for nausea vomiting. Patient reports prior diarrhea although daughter state patient did not have diarrhea at the time of admission. Patient has been on oral chemo with CarboMetyx. On admission he was noted with severe hypomagnesemia with serum magnesium of 0.6. He has associated hypocalcemia and hypokalemia. He had aggressive electrolyte replacement over the next 48 hours. Patient appetite and weakness significantly improved. He did not have any episode of diarrhea or nausea or vomiting during his hospital stay. GI symptoms was felt to be related to the chemo drug. His dose of oral magnesium was increased. His oncologist Dr. Ishaan Egan was discussed with. A follow-up CT of the abdomen done shows nonspecific multiple areas of air-fluid levels in the colon consistent with diarrhea disease. Also noted worsening of renal cancer with invasion to the IVC as well as para renal spaces and peritoneum as compared with previous CT done at this facility. Patient is doing much better tolerating 100% of meals. He will be discharged home today to continue home care and assistance as provided by his sister. Patient declined any further assistance with home health. Patient daughter was discussed with in detail as well as patient oncologist who will follow patient in 1 week - Physical Exam General: Alert, In no apparent distress, Oriented x3 HEENT: Mucous membr. moist/pink Neck: JVD not distended Respiratory: Clear to auscultation bilaterally, Normal air movement Cardiovascular: No edema, Regular rate/rhythm, Normal S1 S2 Gastrointestinal: Soft and benign, Non-distended Musculoskeletal: No swelling, No tenderness Integumentary: No rashes, No cyanosis Neurological: Normal speech, Normal strength at 5/5 x4 extr, Cranial nerves 3-12 intact Vital Signs/Physical Exam: Temp Pulse Resp BP Pulse Ox 97.5 F 82 18 129/79 97 09/20/21 12:00 09/20/21 12:00 09/20/21 12:00 09/20/21 12:00 09/20/21 12:00 Laboratory Data at Discharge: WBC 4.60 K/uL (4.3-10.9) 09/19/21 05:32 Hgb 8.7 g/dL (13.6-17.9) L 09/19/21 05:32 Hct 26.0 % (39.6-49.0) L 09/19/21 05:32 Plt Count 182 K/uL (152-406) 09/19/21 05:32 Sodium 142 mmol/L (136-145) 09/19/21 05:32 Potassium 4.3 mmol/L (3.5-5.1) 09/19/21 05:32 BUN 7 mg/dL (7-18) 09/19/21 05:32 Creatinine 0.84 mg/dL (0.55-1.3) 09/19/21 05:32 Glucose 108 mg/dL (74-106) H 09/19/21 05:32 Phosphorus 3.4 mg/dL (2.5-4.9) D 09/19/21 05:32 Magnesium 1.8 mg/dL (1.8-2.4) 09/19/21 05:32 Total Bilirubin 0.9 mg/dL (0.2-1.0) 09/19/21 05:32 AST 32 U/L (15-37) 09/19/21 05:32 ALT 38 U/L (12-78) 09/19/21 05:32 Alkaline Phosphatase 59 U/L (45-117) 09/19/21 05:32 Triglycerides 70 mg/dL (<150) 09/17/21 03:09 Cholesterol 140 mg/dL (<200) 09/17/21 03:09 HDL Cholesterol 53 mg/dL (40-60) 09/17/21 03:09 Cholesterol/HDL Ratio 2.64 09/17/21 03:09 Lipase 119 U/L (73-393) 09/16/21 11:40 Home Medications: lisinopriL [Prinivil*] 40 mg PO DAILY 11/03/16 Amlodipine Besylate 1 tab PO DAILY 07/07/18 Atorvastatin Calcium [Lipitor] 40 mg PO BEDTIME 07/07/18 Cabozantinib S-Malate [Cabometyx] 40 mg PO DAILY 03/19/21 Carvedilol [Coreg] 1 tab PO BID 03/19/21 Omeprazole [Prilosec] 40 mg PO DAILY 03/19/21 Sitagliptin Phosphate [Januvia] 50 mg PO DAILY 03/19/21 Apixaban [Eliquis] 5 mg PO BID 09/16/21 Loperamide [Imodium*] 30 ml PO DAILY 09/16/21 Magnesium Chloride [Slow-Mag*] 128 mg PO BID #120 tab 09/20/21 New Medications: Magnesium Chloride [Slow-Mag*] 128 mg PO BID #120 tab Diet: Regular Activity: Ad kristi Followup: NONE,NONE [Primary Care Provider] - Time spent managing pt's care (in minutes): 35
== END 2021-09-20 16:00 | disposition home or self-care (01) | DRG 641 ==
LOC: ER 11:03 → ERHOLD 19:32 → 2ND 20:35 → OBSVTOIN 09-17 12:13
PROVIDERS: ADMIT Internal Medicine; ATTEND Internal Medicine
DX: E87.6 Hypokalemia (principal); C78.7 Secondary malignant neoplasm of liver and intrahepatic bile duct; I69.354 Hemiplegia and hemiparesis following cerebral infarction affecting left non-dominant side; K52.1 Toxic gastroenteritis and colitis; C64.9 Malignant neoplasm of unspecified kidney, except renal pelvis; E86.0 Dehydration; E83.42 Hypomagnesemia; E83.51 Hypocalcemia; E11.9 Type 2 diabetes mellitus without complications; E78.5 Hyperlipidemia, unspecified; I10 Essential (primary) hypertension; T45.1X5A Adverse effect of antineoplastic and immunosuppressive drugs, initial encounter; Z79.01 Long term (current) use of anticoagulants; Z79.84 Long term (current) use of oral hypoglycemic drugs; Z79.899 Other long term (current) drug therapy; Z85.528 Personal history of other malignant neoplasm of kidney; Z79.4 Long term (current) use of insulin; Z79.82 Long term (current) use of aspirin; Z20.822 Contact with and (suspected) exposure to COVID-19
CPT/HCPCS: 36415; 71260; 74177; 80048; 80053; 80061; 80076; 81003; 82947; 83690; 83735; 84100; 84132; 84439; 84443; 85025; 96361; 96365; 96366; 96375; 99285; G0378; J0610; J1650; J2405; J3475; J3480; J7040; J7050; Q9967; U0003

== ENCOUNTER 2022-12-08 09:33 | Inpatient (IN) | payer OTHER ==
--- OUTSIDE RECORDS SUMMARY | 2022-12-08 09:54 | XMS REPORT | Continuity of Care Document ---
:[address] [facility] t Address [address] [facility] [place] [address] Care Team Providers Name Role Phone LES HOWARD Primary Care Physician Unavailable CLAUDE BERMUDEZ Attending Clinician Unavailable SUKHI BERMUDEZ Attending Clinician Unavailable VICTORIA UNGER Attending Clinician Unavailable Ute LATHE SET UP PERSON, Victoria Olmedo Attending Clinician [address] [place] [address] Ct Room Attending Clinician Unavailable Doctor Unassigned, [place] Attending Clinician Unavailable RHONA KELLY Attending Clinician Unavailable Rhona eKlly MD Attending Clinician Les Howard Attending Clinician Rachel CARRILLO, Pau Attending Clinician Unavailable Raman PRICE, Jamil Barker Attending Clinician Oswald PRICE, Oracio Garcia Attending Clinician Miguel PRICE, Greg Avalos Attending Clinician Deon PRICE, Nina Almazan Attending Clinician MADHURI AVITIA Attending Clinician Unavailable Sadi PRICE, Madhuri Attending Clinician America PRICE, Claude Quiros Attending Clinician LALIT DIAZ Attending Clinician Unavailable America PRICE, Sukhi Quiros Attending Clinician VICTORIA UNGER Attending Clinician Unavailable Ute LATHE SET UP PERSON, Victoria Olmedo Attending Clinician Lucius PRICE, Harjeet Daniel Attending Clinician [phone] Murali PRICE, Jeancarlos Lainez Attending Clinician Kyle PRICE, Yasmine Saavedra Attending Clinician Miladis PRICE, Melinda Amor Attending Clinician REDDING, MELINDA AMOR Attending Clinician Unavailable STEPHANIE MOFFETT Attending Clinician Unavailable SAIDA PLUMMER Attending Clinician Unavailable Greg Rivera MD Admitting Clinician GREG RIVERA Admitting Clinician Unavailable MADHURI AVITIA Admitting Clinician Unavailable Sadi PRICE, Madhuri Admitting Clinician REDDING, MELINDA AMOR Admitting Clinician Unavailable CLAUDE BERMUDEZ Admitting Clinician Unavailable STEPHANIE MOFFETT Admitting Clinician Unavailable SAIDA PLUMMER Admitting Clinician Unavailable Payers Payer Name Policy Type Policy Number Effective Date Expiration Date S cari MEDICARE A B [id number] 2015 00:00:00 [facility] [place] [facility] [id number] 2021 O 00:00:00 MEDICAID [facility] [id number] 2021 00:00:00 MEDICAID MOLINA [id number] 2018 00:00:00 [facility] PL[facility] [id number] 2020 2020 CHIP 00:00:00 00:00:00 CDC REVIEW [id number] 2020 2020 00:00:00 00:00:00 MEDICARE PART A [id number] \\T\\ B - MEDICARE [facility]-MEDICA[facility] - [id number] 2020 MEDICAID 00:00:00 [facility] [id number] 2021 PPO MCR 00:00:00 [facility] STAR PLUS - [id number] 2017 VALENCIA 00:00:00 [facility] PFAP PROGRAM [id number] 2016 - [facility] PFAP 00:00:00 PROGRAM Problems Condition Condition Condition Status Onset Resolution Last Treating Co mments Source Name Details Category Date Date Treatment Clinician Date Fever in Fever in Disease Active 2021-08 Unive rs adult adult 0-22 ity of 00:00: [address] Burn Burn Disease Active 2021-08 Univers 0-12 ity of 00:00: [address] Liver Liver Disease Active 2021-08 Univers cancer cancer 0-12 ity of 00:00: [address] Staphyloco Staphyloco Disease Active 2021-08 U nivers ccal ccal 0-12 [place] [address] [place] [address] Chronic Chronic Disease Active Last [facility] systolic systolic 8-10 Assessmen Col lege congestive congestive 00:00: t & Plan: of heart heart 00 Formattin Medicin failure failure g of this e note might be different from the original. 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 HFrecover ed EF (LVEF 55-60%, TTE 10/2018). NYHA Class 1 ACC stage A-B- Current meds: BB: metoprolo l succinate 25 mg daily. HR at goal ACEi: lisinopri l 40 mg daily. MRA: NA SGLT-2 inh: NA Device: no indicatio n for AICD or CHILDR[employer] LIBR[employer]IAN-D at the time.- Obtain new surface TTE to assess for LVEF. Liver mass Liver mass Disease Active 2019-[address] [facility] 00 [place] [facility] of Cancer of Disease Recurre 2019-[address] right right nce 0-07 [facility] kidney kidney 00:00: Medical [place] [facility] Cancer of Disease Active [place] [facility] right right 2-11 College kidney kidney 00:00: of 00 Medicin e Right Right Disease Active [facility] renal mass renal mass 3-19 Kim kes 00:00: Medical [place] Sepsis due Sepsis due Disease Recurre 2017-[address] to to nce 09-09 [facility] [place] 00:00: Me dical a coli a coli 00 Center Hemiparesi Hemiparesi Disease Recurre 2017-[address] s of left s of left nce 09-09 Luke s nondominan nondominan 00:00: Me dical t side as t side as 00 Cent er 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 infarction Acute Acute Disease Active 2017-[address] cystitis cystitis 09-09 [facility] without without 00:00: Medical hematuria hematuria 00 Cent er Renal mass Renal mass Disease Active 2017-[address] 09[facility] 00[facility] Medical 00 Center Sepsis Sepsis Disease Recurre 2017-[address] nce 09-09 [facility] 00:[facility] Medical 00 Center Cerebrovas Cerebrovas Disease [facility] accident accident of (CVA) (CVA) Medicin (HCCode) (HCCode) e UTI UTI Disease Active [facility] (urinary (urinary Colleg e tract tract of infection) infection) Va dicin e Hypertensi Hypertensi Disease Active B suzy on on College of Medicin e Diabetes Diabetes Disease Active [facility] of Medicin e Coronary Coronary Disease Active Overview: [facility] artery artery [facility] disease disease g of this of note Medicin might be e different from the original. # CAD presentin g as ACS (per [facility] records, RCA lesion s/p POBA, no cath report available )- Asymptoma tic at the time. Known RCA lesion s/p POBA no stents deployed. - On apixaban 5 mg BID only.- Will start ASA 81 mg daily.- Needs new lipid panel.- Transitio n to atorvasta tin 40 mg daily.Las t Assessmen t & Plan: Formattin g of this note might be different from the original. - Asymptoma tic at the time. Known RCA lesion s/p POBA no stents deployed. - On apixaban 5 mg BID only.- Will start ASA 81 mg daily. Heart Heart Disease Active Overview: [facility] failure failure [facility] ge g of this of note Medicin might be e different from the original. # Hx of HFrecover edEF (LVEF 55-60%, TTE 10/2018 OSH)- Suspected ischemic cardiomyo alicia. HFrecover ed EF (LVEF 55-60%, TTE 10/2018). NYHA Class 1 ACC stage A-B- Current meds: BB: metoprolo l succinate 25 mg daily. HR at goal ACEi: lisinopri l 40 mg daily. MRA: NA SGLT-2 inh: NA Device: no indicatio n for AICD or CHILDREN'S LIBRARIAN-D at the time.- Obtain new surface TTE to assess for LVEF. Allergies, Adverse Reactions, Alerts Allergy Allergy Status Severity Reaction(s) Onset Inactive Treating Comm ents Source Name Type Date Date Clinician Amlodipi Propensi Active 2021-08 [facility] ty to 08-10 on both College adverse 00:00: legs of reaction 00 Medicin s to e drug Carvedil Propensi Active 2021-08 [facility] ty to 08-10 sensation College adverse 00:00: on both of reaction 00 legs Medicin s to e drug Milk Propensi Active Other [facility] ty to 12-29 reaction( College adverse 00:00: s): of reaction 00 diarrheaO Medic in s to ther e food reaction( s): diarrhea MILK Allergy Active [facility] 00 Center Milk Drug Active Other [facility] Allergy 5-29 reaction( [facility] 00[facility]: s): Medical 00 diarrhea Center NO KNOWN Allergy Active [facility] S NO KNOWN Drug Active [facility] ALLERGIE Class ity of S [facility] Family History Family Member Diagnosis Comments Start Date Stop Date Source Natural brother Diabetes [facility] Natural brother Hypertension [facility] Natural brother Stroke [facility] Natural father No Known Problem [facility] Natural mother Diabetes [facility] Natural mother Hypertension [facility] Natural sister Diabetes [facility] Natural sister Hypertension [facility] Natural sister Stroke [facility] Social History Social Habit Start Date Stop Date Quantity Comments Source History of Current smoker [facility] Col lege of tobacco use Medicine History [facility] ge of Alcohol Std Medicine Drinks History [facility] ge of Alcohol Binge Medicine History [facility] Alcohol Comment Medical C enter Exposure to 2022-11-15 2022-11-25 Not sure [facility] e of SARS-CoV-2 00:00:00 10:52:00 Medicine (event) History SDHI Food 2022-05-28 2022-05-28 1 Univers ity of Worry 00:00:00 00:00:00 [facility] History SDOH Food 2022-05-28 2022-05-28 1 Univers ity of Scarcity 00:00:00 00:00:00 [facility] History SDOH 2022-05-28 2022-05-28 2 University o f Transport Med 00:00:00 00:00:00 [place] [facility] History SDOH 2022-05-28 2022-05-28 2 University o f Transport Non-Med 00:00:00 00:00:00 [facility] Alcohol intake 2022-05-23 2022-05-23 Lifetime University of 00:00:00 00:00:00 non-drinker [place] [facility] (finding) [facility] Tobacco use and 2022-03-12 2022-03-12 Smokeless tobacco [facility] of exposure 00:00:00 00:00:00 non-user Medicine History [facility] 2018-08-12 2018-08-12 1 [facility] Rosenda yi of Alcohol Frequency 00:00:00 00:00:00 Medicin e Sex Ass[birth year] Universit y of 00:00:00 00:00:00 [facility] Smoking Status Start Date Stop Date Source Never smoked tobacco [facility] Ex-smoker 2022-03-12 00:00:00 2022-03-12 00:00:00 [facility] Buzz tellez of Medicine Medications Ordered Filled Start Stop Current Ordering Indication Dosage Frequency Signature Comments Components Source Medication Medication Date Date Medication? Clinician (SIG) Name Name lisinopril Yes 40mg Take 40 mg [facility] (PRINIVIL, 4-25 by mouth. Dimitrios ege ZESTRIL) 40 11:55: of MG tablet 24 Medicin e docusate Yes 100mg Take 100 [facility] or sodium 4-25 mg by College (COLACE) 11:55: mouth two of 100 MG 24 times Medicin capsule daily. e cyclobenzap Yes 5mg Take 5 mg [facility] rine 4-25 by mouth 3 College (FLEXERIL) 11:55: times of 5 MG tablet 24 daily as Medi jennifer needed. e finasteride Yes 5mg Take 5 mg [facility] (PROSCAR) 5 4-25 by mouth Dimitrios ege MG tablet 11:55: daily. of 24 Medicin e hydrocodone Yes 1{tbl} Take 1 [facility] -acetaminop 4-25 Tablet by Col lege hen (NORCO) 11:55: mouth of 10-325 MG 24 every 6 Medicin per tablet hours as e needed for Pain. ibuprofen Yes 800mg Take 800 [place] [facility] (MOTRIN) 4-25 mg by Ivan 800 mg 11:55: mouth of tablet 24 every 6 Medicin hours as e needed for Pain. metoprolol Yes 25mg Take 25 mg [facility] (TOPROL-XL) 4-25 by mouth Dimitrios ege 25 MG XL 11:55: daily. of tablet 24 Medicin e Oxycodone Yes Take by [facility] HCl 10 MG 4-25 mouth. College TABS 11:55: of 24 Medicin e Diclofenac Yes Apply [facility] Sodium 2 % 4-25 topically. Col legkeysha SOLN 11:55: of 24 Medicin e Everolimus Yes [id number] 5mg Take 5 mg [place] 5 MG TABS 2-20 by mouth Colleg e 00:00: daily. of 00 Medicin e Lenvatinib, Yes [id number] 14mg Take 14 mg [facility] 14 MG Daily 2-20 by mouth Dimitrios ege Dose, 10 & 00:00: daily. of 4 MG CPPK 00 Medicin e Aspirin Yes [id number] TAKE 1 [place] [facility] (ASPIRIN 1-10 TABLET BY Colleg e LOW DOSE) 00:00: MOUTH of 81 MG 00 EVERY DAY Medicin tablet e Aspirin Yes [id number] TAKE 1 [place] [facility] (ASPIRIN 1-10 TABLET BY Colleg e LOW DOSE) 00:00: MOUTH of 81 MG 00 EVERY DAY Medicin tablet e lisinopril 2021-08 Yes 40mg Take 40 mg [facility] (PRINIVIL, 2-23 by mouth. Dimitrios ege ZESTRIL) 40 14:28: of MG tablet 59 Medicin e docusate 2021-08 Yes 100mg Take 100 [facility] sodium 2-23 mg by Ivan (COLACE) 14:28: mouth two of 100 MG 59 times Medicin capsule daily. e cyclobenzap 2021-08 Yes 5mg Take 5 mg [facility] rine 2-23 by mouth 3 Ivan (FLEXERIL) 14:28: times of 5 MG tablet 59 daily as Medi jennifer needed. e finasteride 2021-08 Yes 5mg Take 5 mg [facility] (PROSCAR) 5 2-23 by mouth Dimitrios ege MG tablet 14:28: daily. of 59 Medicin e hydrocodone 2021-08 Yes 1{tbl} Take 1 [facility] -acetaminop 2-23 Tablet by [facility] (NORCO) 14:28: mouth of 10-325 MG 59 every 6 Medicin per tablet hours as e needed for Pain. ibuprofen 2021-08 Yes 800mg Take 800 [place] [facility] (MOTRIN) 2-23 mg by Ivan 800 mg 14:28: mouth of tablet 59 every 6 Medicin hours as e needed for Pain. metoprolol 2021-08 Yes 25mg Take 25 mg [facility] (TOPROL-XL) 2-23 by mouth Dimitrios ege 25 MG XL 14:28: daily. of tablet 59 Medicin e Oxycodone 2021-08 Yes Take by [facility] HCl 10 MG 2-23 mouth. Ivan TABS 14:28: of 59 Medicin e Diclofenac 2021-08 Yes Apply [facility] Sodium 2 % 2-23 topically. Col ty SOLN 14:28: of 59 Medicin e lisinopril 2021-08 Yes 40mg Take 40 mg [facility] (PRINIVIL, 2-23 by mouth. Dimitrios ege ZESTRIL) 40 14:28: of MG tablet 59 Medicin e docusate 2021-08 Yes 100mg Take 100 [facility] sodium 2-23 mg by Ivan (COLACE) 14:28: mouth two of 100 MG 59 times Medicin capsule daily. e cyclobenzap 2021-08 Yes 5mg Take 5 mg [facility] rine 2-23 by mouth 3 Ivan (FLEXERIL) 14:28: times of 5 MG tablet 59 daily as Medi jennifer needed. e finasteride 2021-08 Yes 5mg Take 5 mg [facility] (PROSCAR) 5 2-23 by mouth Dimitrios ege MG tablet 14:28: daily. of 59 Medicin e hydrocodone 2021-08 Yes 1{tbl} Take 1 Ba ylor -acetaminop 2-23 Tablet by [facility] ty govea (NORCO) 14:28: mouth of 10-325 MG 59 every 6 Medicin per tablet hours as e needed for Pain. ibuprofen 2021-08 Yes 800mg Take 800 [place] [facility] (MOTRIN) 2-23 mg by Ivan 800 mg 14:28: mouth of tablet 59 every 6 Medicin hours as e needed for Pain. metoprolol 2021-08 Yes 25mg Take 25 mg [facility] (TOPROL-XL) 2-23 by mouth Dimitrios ege 25 MG XL 14:28: daily. of tablet 59 Medicin e Oxycodone 2021-08 Yes Take by [facility] HCl 10 MG 2-23 mouth. College TABS 14:28: of 59 Medicin e Diclofenac 2021-08 Yes Apply [facility] Sodium 2 % 2-23 topically. Col yt KAHN 14:28: of 59 Medicin e lisinopril 2021-08 Yes 40mg Take 40 mg [facility] (PRINIVIL, 2-13 by mouth. Dimitrios ege ZESTRIL) 40 11:35: of MG tablet 21 Medicin e docusate 2021-08 Yes 100mg Take 100 [facility] sodium 2-13 mg by Ivan (COLACE) 11:35: mouth two of 100 MG 21 times Medicin capsule daily. e cyclobenzap 2021-08 Yes 5mg Take 5 mg [facility] rine 2-13 by mouth 3 Ivan (FLEXERIL) 11:35: times of 5 MG tablet 21 daily as Medi jennifer needed. e finasteride 2021-08 Yes 5mg Take 5 mg [facility] (PROSCAR) 5 2-13 by mouth Dimitrios ege MG tablet 11:35: daily. of 21 Medicin e ibuprofen 2021-08 Yes 800mg Take 800 [place] [facility] (MOTRIN) 2-13 mg by Ivan 800 mg 11:35: mouth of tablet 21 every 6 Medicin hours as e needed for Pain. metoprolol 2021-08 Yes 25mg Take 25 mg [facility] (TOPROL-XL) 2-13 by mouth Dimitrios ege 25 MG XL 11:35: daily. of tablet 21 Medicin e Oxycodone 2021-08 Yes Take by [facility] HCl 10 MG 2-13 mouth. College TABS 11:35: of 21 Medicin e Diclofenac 2021-08 Yes Apply [facility] Sodium 2 % 2-13 topically. Col lege SOLN 11:35: of 21 Medicin e Cabozantini 2021-08 Yes [id number] TAKE 1 [facility] b S-Malate 1-22 TABLET BY Dimitrios alicea (CABOMETYX) 00:00: MOUTH of 40 MG TABS 00 DAILY ON Medic in AN EMPTY e STOMACH 1 HOUR BEFORE OR 2 HOURS AFTER A MEAL Strength: 40 mg Cabozantini 2021-08 Yes [id number] TAKE 1 [facility] b S-Malate 1-22 TABLET BY Dimitrios alicea (CABOMETYX) 00:00: MOUTH of 40 MG TABS 00 DAILY ON Medic in AN EMPTY e STOMACH 1 HOUR BEFORE OR 2 HOURS AFTER A MEAL Strength: 40 mg Cabozantini 2021-083- No [id number] TAKE 1 [facility] b S-Malate 1-22 02-20 TABLET BY Col crawford (CABOMETYX) 00:00: 00:00 MOUTH of 40 MG TABS 00 :00 DAILY ON Medic in AN EMPTY e STOMACH 1 HOUR BEFORE OR 2 HOURS AFTER A MEAL Strength: 40 mg lisinopril 2021-08 Yes 40mg Take 40 mg [facility] (PRINIVIL, 1-08 by mouth. Dimitrios egkeysha ZESTRIL) 40 11:21: of MG tablet 55 Medicin e ibuprofen 2021-08 Yes 800mg Take 800 [place] [facility] (MOTRIN) 1-08 mg by Ivan 800 mg 11:21: mouth of tablet 55 every 6 Medicin hours as e needed for Pain. lisinopril 2021-08 Yes 40mg Take 40 mg [facility] (PRINIVIL, 1-08 by mouth. Dimitrios ege ZESTRIL) 40 11:21: of MG tablet 55 Medicin e amlodipine 2021-08- No 10mg Take 10 mg [facility] (NORVASC) - 11-08 by mouth Colle ge 10 MG 11:21: 00:00 daily. of tablet 46 :00 Medicin e amlodipine 2021-08- No 10mg Take 10 mg [facility] (NORVASC) 08-10-08 by mouth Colle ge 10 MG 11:21: 00:00 daily. of tablet 46 :00 Medicin e triamcinolo 2021-08 Yes Apply to jennifer ct 08-04 affected Ivan ([facility]) 00:00: area 2 of 0.1 % 00 times Medicin ointment daily x e 2-4wks. Avoid face/groin /axillae triamcinolo 2021-08 Yes Apply to jennifer ct 08-04 affected Ivan ([facility] 00:00: area 2 of 0.1 % 00 times Medicin ointment daily x e 2-4wks. Avoid face/groin /axillae triamcinolo 2021-08 Yes Apply to jennifer ct 08-04 affected Ivan ([facility] 00:00: area 2 of 0.1 % 00 times Medicin ointment daily x e 2-4wks. Avoid face/groin /axillae triamcinolo 2021-08 Yes Apply to jennifer ct 08-04 affected Ivan ([facility] 00:00: area 2 of 0.1 % 00 times Medicin ointment daily x e 2-4wks. Avoid face/groin /axillae triamcinolo 2021-08 Yes Apply to jennifer ct 08-04 affected Ivan ([facility] 00:00: area 2 of 0.1 % 00 times Medicin ointment daily x e 2-4wks. Avoid face/groin /axillae triamcinolo 2021-08 Yes Apply to jennifer ct 08-04 affected Ivan ([employer]) 00:00: area 2 of 0.1 % 00 times Medicin ointment daily x e 2-4wks. Avoid face/groin /axillae polyethylen 2021-08 Yes 17g 17 g, Unive rs e glycol 0-25 Oral, BID, ity o f 3350 powder 13:00: First dose [place] 17 g 00 (after Medical last Branch modificati on) on Thu05/27/22 at 0800, Until Discontinu ed, Routine polyethylen 2021-08 Yes 17g 17 g, Unive rs e glycol 0-25 Oral, BID, ity o f 3350 powder 13:00: First dose [place] 17 g 00 (after Medical last Branch modificati on) on Thu05/27/22 at 0800, Until Discontinu ed, Routine polyethylen 2021-08 No 17g 17 g, Univ ers e glycol 0-25 10-25 Oral, ity of 3350 powder 04:30: 12:54 DAILY, Alfie as 17 g 00 :56 First dose Medical on Thu [place] 05/26/22 at 2330, Until Discontinu ed, Routine polyethylen 2021-08- No 17g 17 g, Univ ers e glycol 0-25 10-25 Oral, ity of 3350 powder 04:30: 12:54 DAILY, Alfie as 17 g 00 :56 First dose Medical on Thu [place] 05/26/22 at 2330, Until Discontinu ed, Routine levoFLOXaci 2021-08- No [id number] 750mg Take 1 Univers n 750 mg 0-25 - tablet by ity o f tablet 00:00: 04:59 mouth [place] 00 :00 every 24 Medical ([facility]) hours for 7 days. levoFLOXaci 2021-08- No [id number] 750mg Take 1 Univers n 750 mg 0-06-04 tablet by ity o f tablet 00:00: 04:59 mouth [place] 00 :00 every 24 Medical ([facility]) hours for 7 days. levoFLOXaci 2021-08- No [id number] 750mg Take 1 Univers n 750 mg 0-25 06-04 tablet by ity o f tablet 00:00: 04:59 mouth [place] 00 :00 every 24 Medical ([facility]) hours for 7 days. levoFLOXaci 2021-08- No [id number] 750mg Take 1 Univers n 750 mg 0-06-04 tablet by ity o f tablet 00:00: 04:59 mouth [place] 00 :00 every 24 Medical ([facility] ur) hours for 7 days. ceFEPIme 2021-08- No 2000mg 2,000 mg, U nivers (MAXIPIME) 0- 10-30 IV ity of 2,000 mg in 21:45: 21:44 [place], [place] NaCl 0.9% 00 :00 Q8H ABX, Medica l (NS) 50 mL 21 doses, Bran ch MINI-BAG First dose on 05/25/22 at 1645, Last dose on 06/01/22 at 0845, Administer over 4 Hours, 50 mL
Reas on for Anti-Infec tive: Documented Infection& lt;br>Docu mented Infection Site: Blood
D uration of Therapy: 7 days ceFEPIme 2021-08 No 2000mg 2,000 mg, U nivers (MAXIPIME) 0-23 10-30 IV ity of 2,000 mg in 21:45: 21:44 [place], [place] NaCl 0.9% 00 :00 Q8H ABX, Medica l (NS) 50 mL 21 doses, Bran ch MINI-BAG First dose on [place] 05/25/22 at 1645, Last dose on [place] 06/01/22 at 0845, Administer over 4 Hours, 50 mL
Reas on for Anti-Infec tive: Documented Infection& lt;br>Docu mented Infection Site: Blood
D uration of Therapy: 7 days ceFEPIme 2021-08 No 2000mg 2,000 mg, U nivers (MAXIPIME) 0 10-23 IV ity of 2,000 mg in 14:00: 14:20 [place], [place] NaCl 0.9% 00 :00 ONCE, 1 Medical (NS) 50 mL dose, On Branc h MINI-BAG [place] 05/25/22 at 0900, Administer over 30 Minutes, 50 mL
Reas on for Anti-Infec tive: Documented Infection< br>Documen anne marie Infection Site: Blood<br&g t;Duration of Therapy: 7 days ceFEPIme 2021-08 No 2000mg 2,000 mg, U nivers (MAXIPIME) 0- 10-23 IV ity of 2,000 mg in 14:00: 14:20 [place], [place] NaCl 0.9% 00 :00 ONCE, 1 Medical (NS) 50 mL dose, On Branc h MINI-BAG [place] 05/25/22 at 0900, Administer over 30 Minutes, 50 mL
Reas on for Anti-Infec tive: Documented Infection< br>Documen anne marie Infection Site: Blood<br&g t;Duration of Therapy: 7 days atorvastati 2021-08 Yes 40mg 40 mg, Univ ers n (LIPITOR) 0-23 Oral, QHS, it y of tablet 40 02:00: First dose [place] mg 00 on Sat Medical 05/24/22 Branch at 2100, Until Discontinu ed, Routine atorvastati 2021-08 Yes 40mg 40 mg, Univ ers n (LIPITOR) 0-23 Oral, QHS, it y of tablet 40 02:00: First dose [place] mg 00 on [facility] Medical 05/24/22 Branch at 2100, Until Discontinu ed, Routine magnesium 2021-08- No 4g 4 g, IV Univ ers sulfate in 05-25 [place], it y of water 4 21:00: 02:04 at 25 [place] gram/50 mL 00 :00 mL/hr Medical (8 %) IV Administer Branc h [place] 4 over 120 g Minutes, ONCE, 1 dose, On 05/24/22 at 1600, Routine magnesium 2021-08- No 4g 4 g, IV Univ ers sulfate in 05-25 [place], it y of water 4 21:00: 02:04 at 25 [place] gram/50 mL 00 :00 mL/hr Medical (8 %) IV Administer Branc h [place] 4 over 120 g Minutes, ONCE, 1 dose, On 05/24/22 at 1600, Routine magnesium 2021-08- No 4g 4 g, IV Univ ers sulfate in 05-24 [place], it y of water 4 18:00: 20:49 at 25 [place] gram/50 mL 00 :00 mL/hr Medical (8 %) IV Administer Branc h [place] 4 over 120 g Minutes, ONCE, 1 dose, On 05/24/22 at 1300, Routine magnesium 2021-08- No 4g 4 g, IV Univ ers sulfate in 05-24 [place], it y of water 4 18:00: 20:49 at 25 [place] gram/50 mL 00 :00 mL/hr Medical (8 %) IV Administer Branc h [place] 4 over 120 g Minutes, ONCE, 1 dose, On 05/24/22 at 1300, Routine piperacilli 2021-08- No 4.5g 4.5 g, IV Univers n-tazobacta 05-25 [place], i ty of m (ZOSYN) 17:00: 13:04 Q8H ABX, Alfie as 4.5 g in 00 :00 15 doses, Medica l NaCl 0.9% First dose Bran ch (NS) 50 mL on Sat MINI-BAG 05/24/22 at 1200, Last dose on [place] 05/29/22 at 0400, Administer over 4 Hours, 50 mL
Reas on for Anti-Infec tive: Empiric Therapy for Suspected Infection< br>Empiric Therapy Site: Urine
D uration of therapy: 5 days piperacilli 2021-08 No 4.5g 4.5 g, IV Univers n-tazobacta 05-25 [place], i ty of m (ZOSYN) 17:00: 13:04 Q8H ABX, Alfie as 4.5 g in 00 :00 15 doses, Medica l NaCl 0.9% First dose Bran ch (NS) 50 mL on Sat MINI-BAG 05/24/22 at 1200, Last dose on [place] 05/29/22 at 0400, Administer over 4 Hours, 50 mL
Reas on for Anti-Infec tive: Empiric Therapy for Suspected Infection< br>Empiric Therapy Site: Urine
D uration of therapy: 5 days NaCl 0.9% 2021-08- No 500mL at 999 Univ ers (NS) bolus 0-22 10-22 mL/hr, 500 it y of infusion 16:15: 16:50 mL, IV [place] 500 mL 00 :00 [place], Medical ONCE, 1 Branch dose, On [facility] 05/24/22 at 1115, STAT NaCl 0.9% 2021-08- No 500mL at 999 Univ ers (NS) bolus 0-22 10-22 mL/hr, 500 it y of infusion 16:15: 16:50 mL, IV [place] 500 mL 00 :00 [place], Medical ONCE, 1 Branch dose, On 05/24/22 at 1115, STAT aspirin EC 2021-08 Yes 81mg 81 mg, Unive rs tablet 81 0-22 Oral, ity of mg 14:00: DAILY, First dose Medical on Sat Branch 05/24/22 at 0900, Until Discontinu ed, Routine pantoprazol 2021-08 Yes 40mg 40 mg, Univ ers e 0-22 Oral, ity of (PROTONIX) 14:00: DAILY, [place] EC tablet 00 First dose Medi juliet 40 mg on [facility] Branch 05/24/22 at 0900, Until Discontinu ed, Routine
Indicatio n for use: [place] > 30 % Body Surface Area (BSA) aspirin EC 2021-08 Yes 81mg 81 mg, Unive rs tablet 81 0-22 Oral, ity of mg 14:00: DAILY, First dose Medical on [facility] 05/24/22 at 0900, Until Discontinu ed, Routine pantoprazol 2021-08 Yes 40mg 40 mg, Univ ers e 0-22 Oral, ity of (PROTONIX) 14:00: DAILY, [place] EC tablet 00 First dose Medi juliet 40 mg on [facility] 05/24/22 at 0900, Until Discontinu ed, Routine
Indicatio n for use: [place] > 30 % Body Surface Area (BSA) Sliding 2021-08 Yes Subcutaneo Univ ers Scale 0-22 us, TID ity of Insulin - 13:00: MEALS+HS, [place] as Lispro 00 First dose Medical (HumaLOG) + on [facility] 05/24/22 Testing at 0800, Until Discontinu ed, Routine apixaban 2021-08 Yes 5mg 5 mg, Univers (ELIQUIS) 0-22 Oral, BID, ity of tablet 5 mg 13:00: First dose on [facility] 05/24/22 Branch at 0800, Until Discontinu ed, Routine
Indicatio ns: DVT/PE Sliding 2021-08 Yes Subcutaneo Univ ers Scale 0-22 us, TID ity of Insulin - 13:00: MEALS+HS, [place] Lispro 00 First dose Medical (HumaLOG) + on [facility] 05/24/22 Testing at 0800, Until Discontinu ed, Routine apixaban 2021-08 Yes 5mg 5 mg, Univers (ELIQUIS) 0-22 Oral, BID, ity of tablet 5 mg 13:00: First dose on [facility] 05/24/22 Branch at 0800, Until Discontinu ed, Routine
Indicatio ns: DVT/PE dextrose 2021-08 Yes 250mL 250 mL, IV Un cassy 10% (D10W) 0-22 Infusion, ity of bolus 09:40: PRN - SEE [place] infusion 26 INSTRUCTIO Medic al 250 mL NS, Branch Administer over 60 Minutes, Other, If blood glucose is < or = 70 mg/dL and patient is unable to swallow or has mental status changes, Starting on 05/24/22 at 0440
If blood glucose is < or = 70 mg/dL and patient is unable to swallow or has mental status changes (Give glucagon order if patient needs fluid restrictio n): IF IV access available: Dextrose 10%. 1. 125 mL (? bag) of D10W IV infusion - equivalent to 12.5 g dextrose 2. Blood glucose - draw blood glucose 15 minutes after D10W Administra tion. 3. If blood glucose is < 80 mg/dL, repeat.
dextrose 2021-08 Yes 250mL 250 mL, IV Un cassy 10% (D10W) 0-22 Infusion, ity of bolus 09:40: PRN - SEE [place] infusion 26 INSTRUCTIO Medic al 250 mL NS, Branch Administer over 60 Minutes, Other, If blood glucose is < or = 70 mg/dL and patient is unable to swallow or has mental status changes, Starting on 05/24/22 at 0440
If blood glucose is < or = 70 mg/dL and patient is unable to swallow or has mental status changes (Give glucagon order if patient needs fluid restrictio n): IF IV access available: Dextrose 10%. 1. 125 mL (? bag) of D10W IV infusion - equivalent to 12.5 g dextrose 2. Blood glucose - draw blood glucose 15 minutes after D10W Administra tion. 3. If blood glucose is < 80 mg/dL, repeat.
glucagon 2021-08 Yes 1mg 1 mg, Univers (GLUCAGEN 0-22 Intramuscu ity of DIAGNOSTIC 09:40: [place], PRN, [place] KIT) 23 Starting Medical injection 1 on Sat Branch mg 05/24/22 at 0440, Until Discontinu ed, ANNA, Blood Glucose < or = 70 mg/dL and patient is unable to swallow or has mental changes. glucagon 2021-08 Yes 1mg 1 mg, Univers (GLUCAGEN Intramuscu ity of DIAGNOSTIC 09:40: lar, PRN, [place] KIT) 23 Starting Medical injection 1 on Sat Branch mg 05/24/22 at 0440, Until Discontinu ed, ANNA, Blood Glucose < or = 70 mg/dL and patient is unable to swallow or has mental changes. vancomycin 2021-08- No 15mg/kg 1,250 mg Univers 1,250 mg in 05-25 (rounded ity of NaCl 0.9% 09:30: 17:31 from 230 [place] (NS) 250 mL 00 :39 mg = 15 Medic al VIAL-MATE mg/kg ?82 Branc h IV kg), IV piggyback Piggyback, Q8H ABX, 15 doses, First dose on 05/24/22 at 0430, Last dose on Thu05/28/22 at 2030, Administer over 90 Minutes, 250 mL
Reas on for Anti-Infec tive: Empiric Therapy for Suspected Infection< br>Empiric Therapy Site: Urine
D uration of therapy: 5 days vancomycin 2021-08 No 15mg/kg 1,250 mg Univers 1,250 mg in 05-25 (rounded ity of NaCl 0.9% 09:30: 17:31 from 1230 [place] (NS) 250 mL 00 :39 mg = 15 Medic al VIAL-MATE mg/kg ?82 Branc h IV kg), IV piggyback Piggyback, Q8H ABX, 15 doses, First dose on 05/24/22 at 0430, Last dose on Thu05/28/22 at 2030, Administer over 90 Minutes, 250 mL
Reas on for Anti-Infec tive: Empiric Therapy for Suspected Infection< br>Empiric Therapy Site: Urine
D uration of therapy: 5 days traMADoL 2021-08 Yes 50mg 50 mg, Univers (ULTRAM) Oral, ity of tablet 50 09:11: Q8HPRN, [place] mg 34 Starting Medical on Sat Branch 05/24/22 at 0411, Until Discontinu ed, Routine, Pain (scale 7-10) traMADoL 2021-08 Yes 50mg 50 mg, Univers (ULTRAM) 0-22 Oral, ity of tablet 50 09:11: Q8HPRN, [place] mg 34 Starting Medical on Sat Branch 05/24/22 at 0411, Until Discontinu ed, Routine, Pain (scale 7-10) NORepinephr 2021-08- No .05ug/k 0.05-1.5 Univers ine 4 mg in 0-22 10-23 g/min mcg/kg/min ity of 0.9% NaCl 07:39: 14:51 ?77.1 kg [place]fie as 250 mL 51 :09 (14.4563-4 Medical infusion 33.6875 Branch RTU mL/hr, rounded to 14.46-433. 69 mL/hr), IV Infusion, TITRATE, MAP Goal > or = 65 mmHg, Starting on 05/24/22 at 0239
In itiate titration at 0.05 mcg/kg/min . &nb sp;Increas e by 0.05 mcg/kg/min every 30 seconds to 5 minutes as needed to reach and maintain goal blood pressure.& nbsp;&nbsp ;Maximum dose = 1.5 mcg/kg/min .&nbsp ; If goal not maintained at maximum allowed dose, contact prescriber .
NORepinephr 2021-08- No .05ug/k 0.05-1.5 Univers ine 4 mg in 0-22 10-23 g/min mcg/kg/min ity of 0.9% NaCl 07:39: 14:51 ?77.1 kg [place] as 250 mL 51 :09 (14.4563-4 Medical infusion 33.6875 Branch RTU mL/hr, rounded to 14.46-433. 69 mL/hr), IV Infusion, TITRATE, MAP Goal > or = 65 mmHg, Starting on 05/24/22 at 0239
In itiate titration at 0.05 mcg/kg/min . &nb sp;Increas e by 0.05 mcg/kg/min every 30 seconds to 5 minutes as needed to reach and maintain goal blood pressure.& nbsp;&nbsp ;Maximum dose = 1.5 mcg/kg/min .&nbsp ; If goal not maintained at maximum allowed dose, contact prescriber .
NaCl 0.9% 2021-08- No 1000mL at 200 Uni vers (NS) IV 0-22 10-22 mL/hr, IV ity of infusion 07:00: 08:24 Infusion, [place] as 1,000 mL 00 :00 ONCE, 1 Medical dose, On Branch 05/24/22 at 0200, ANNA NaCl 0.9% 2021-08- No 1000mL at 200 Uni vers (NS) IV 0-22 10-22 mL/hr, IV ity of infusion 07:00: 08:24 Infusion, [place] as 1,000 mL 00 :00 ONCE, 1 Medical dose, On Branch 05/24/22 at 0200, ANNA NaCl 0.9% 2021-08- No 2000mL at 999 Uni vers (NS) bolus 0-22 10-22 mL/hr, ity of infusion 04:15: 03:43 2,000 mL, [place] as 2,000 mL 00 :00 IV Medical Infusion, Branch ONCE, 1 dose, On 05/23/22 at 2315, ANNA NaCl 0.9% 2021-08- No 2000mL at 999 Uni vers (NS) bolus 0-22 10-22 mL/hr, ity of infusion 04:15: 03:43 2,000 mL, [place] as 2,000 mL 00 :00 IV Medical Infusion, Branch ONCE, 1 dose, On 05/23/22 at 2315, ANNA acetaminoph 2021-08 No 650mg 650 mg, U nivers en 05-24 Oral, ity of (TYLENOL) 03:30: 03:52 ONCE, 1 [place] tablet 650 00 :00 dose, On Medic al mg Fri Branch 05/23/22 at 2230, ANNA piperacilli 2021-08- No 3.375g 3.375 g, Univers n-tazobacta 05-24 IV ity of m (ZOSYN) 03:30: 04:15 Piggyback, [place] 3.375 g in 00 :00 ONCE, 1 Medica l NaCl 0.9% dose, On Branch (NS) 50 mL Fri MINI-BAG 05/23/22 at 2230, Administer over 30 Minutes, 50 mL
Reas on for Anti-Infec tive: Documented Infection< br>Documen anne marie Infection Site: Abdominal< br>Duratio n of Therapy: Other (see Comments) ibuprofen 2021-08 No 600mg 600 mg, Uni vers (IBU) 05-24 Oral, ity of tablet 600 03:30: 03:52 ONCE, 1 [place] mg 00 :00 dose, On Medical Fri Branch 05/23/22 at 2230, ANNA acetaminoph 2021-08 No 650mg 650 mg, U nivers en 05-24 Oral, ity of (TYLENOL) 03:30: 03:52 ONCE, 1 [place] tablet 650 00 :00 dose, On Medic al mg Fri Branch 05/23/22 at 2230, [facility] piperacilli 2021-08- No 3.375g 3.375 g, Univers n-tazobacta 05-24 IV ity of m (ZOSYN) 03:30: 04:15 Piggyback, [place] 3.375 g in 00 :00 ONCE, 1 Medica l NaCl 0.9% dose, On Branch (NS) 50 mL Fri MINI-BAG 05/23/22 at 2230, Administer over 30 Minutes, 50 mL
Reas on for Anti-Infec tive: Documented Infection< br>Documen anne marie Infection Site: Abdominal< br>Duratio n of Therapy: Other (see Comments) ibuprofen 2021-08 No 600mg 600 mg, Uni vers (IBU) 05-24 Oral, ity of tablet 600 03:30: 03:52 ONCE, 1 [place] mg 00 :00 dose, On Medical Fri Branch 05/23/22 at 2230, ANNA iohexol 2021-08- No [id number] 80mL 80 mL, Un csasy (OMNIPAQUE 05-24 Intravenou it y of 350 02:30: 02:29 s, ONCE, 1 [place] BULK-100 00 :00 dose, On Medical mL) Fri Branch injection 05/23/22 80 mL at 2130, Routine iohexol 2021-08- No [id number] 80mL 80 mL, Un cassy (OMNIPAQUE 0-05-24 Intravenou it y of 350 02:30: 02:29 s, ONCE, 1 [place] BULK-100 00 :00 dose, On Medical mL) Fri Branch injection 05/23/22 80 mL at 2130, Routine NaCl 0.9% 2021-08- No 500mL at 999 Univ ers (NS) bolus 0-22 10-22 mL/hr, 500 it y of infusion 01:00: 01:00 mL, IV [place] 500 mL 00 :00 Infusion, Medical ONCE, 1 Branch dose, On Thu05/23/22 at 2000, ANNA NaCl 0.9% 2021-08- No 500mL at 999 Univ ers (NS) bolus 0-22 10-22 mL/hr, 500 it y of infusion 01:00: 01:00 mL, IV [place] 500 mL 00 :00 Infusion, Medical ONCE, 1 Branch dose, On Thu05/23/22 at 2000, ANNA NaCl 0.9% 2021-08- No 1000mL at 999 Uni vers (NS) bolus 0-22 10-22 mL/hr, ity of infusion 00:45: 01:00 1,000 mL, [place] as 1,000 mL 00 :00 IV Medical Infusion, Branch ONCE, 1 dose, On Thu05/23/22 at 1945, ANNA NaCl 0.9% 2021-08- No 1000mL at 999 Uni vers (NS) bolus 0-22 10-22 mL/hr, ity of infusion 00:45: 01:00 1,000 mL, [place] as 1,000 mL 00 :00 IV Medical Infusion, Branch ONCE, 1 dose, On Thu05/23/22 at 1945, ANNA cefTRIAXone 2021-08 No 1000mg 1,000 mg, Univers (ROCEPHIN) 005-24 Intravenou it y of 1,000 mg in 22:45: 00:20 s, ONCE, 1 [place] NaCl 0.9% 00 :00 dose, On Medica l (NS) 50 mL Thu Branch MINI-BAG 05/23/22 at 1745, Administer over 30 Minutes, 50 mL
Reas on for Anti-Infec tive: Empiric Therapy for Suspected Infection< br>Empiric Therapy Site: Urine
D uration of therapy: 72 hours NaCl 0.9% 2021-08 No 1000mL at 999 Uni vers (NS) bolus 0-21 10-22 mL/hr, ity of infusion 22:45: 01:04 1,000 mL, [place] as 1,000 mL 00 :00 IV Medical Infusion, Branch ONCE, 1 dose, On Thu05/23/22 at 1745, [facility] cefTRIAXone 2021-08 No 1000mg 1,000 mg, Univers (ROCEPHIN) 005-24 Intravenou it y of 1,000 mg in 22:45: 00:20 s, ONCE, 1 [place] NaCl 0.9% 00 :00 dose, On Medica l (NS) 50 mL Thu [place] MINI-BAG 05/23/22 at 1745, Administer over 30 Minutes, 50 mL
Reas on for Anti-Infec tive: Empiric Therapy for Suspected Infection< br>Empiric Therapy Site: Urine
D uration of therapy: 72 hours NaCl 0.9% 2021-08 No 1000mL at 999 Uni vers (NS) bolus 0-21 10-22 mL/hr, ity of infusion 22:45: 01:04 1,000 mL, [place] as 1,000 mL 00 :00 IV Medical Infusion, Branch ONCE, 1 dose, On Thu05/23/22 at 1745, [facility] acetaminoph 2021-08- No 650mg 650 mg, U nivers en 005-23 Oral, ity of (TYLENOL) 22:15: 23:52 ONCE, 1 [place] tablet 650 00 :00 dose, On Medic al mg Thu [place] 05/23/22 at 1715, [facility] acetaminoph 2021-08- No 650mg 650 mg, U nivers en 005-23 Oral, ity of (TYLENOL) 22:15: 23:52 ONCE, 1 [place] tablet 650 00 :00 dose, On Medic al mg Thu [place] 05/23/22 at 1715, [facility] No known 2021-08 No No known Unive rs medications 0-21 medication it y of 20:37: s [place] 39 [facility] Branch lisinopril 2021-08 Yes 40mg Take 40 mg [facility] (PRINIVIL, 0-19 by mouth. Dimitrios egkeysha ZESTRIL) 40 12:02: of MG tablet 34 Medicin e amlodipine 2021-08 Yes 10mg Take 10 mg [place] (NORVASC) 0-19 by mouth Colleg e 10 MG 12:02: daily. of tablet 34 Medicin e docusate 2021-08 Yes 100mg Take 100 [place] sodium 0-19 mg by Ivan (COLACE) 12:02: mouth two of 100 MG 34 times Medicin capsule daily. e cyclobenzap 2021-08 Yes 5mg Take 5 mg [place] rine 0-19 by mouth 3 College (FLEXERIL) 12:02: times of 5 MG tablet 34 daily as Medi jennifer needed. e finasteride 2021-08 Yes 5mg Take 5 mg [place] (PROSCAR) 5 0-19 by mouth Dimitrios ege MG tablet 12:02: daily. of 34 Medicin e hydrocodone 2021-08 Yes 1{tbl} Take 1 [facility] -acetaminop 0-19 Tablet by [facility] lege hen (NORCO) 12:02: mouth of 10-325 MG 34 every 6 Medicin per tablet hours as e needed for Pain. ibuprofen 2021-08 Yes 800mg Take 800 [place] [facility] (MOTRIN) 0-19 mg by Ivan 800 mg 12:02: mouth of tablet 34 every 6 Medicin hours as e needed for Pain. metoprolol 2021-08 Yes 25mg Take 25 mg [place] (TOPROL-XL) 0-19 by mouth Dimitrios ege 25 MG XL 12:02: daily. of tablet 34 Medicin e Oxycodone 2021-08 Yes Take by [facility] HCl 10 MG 0-19 mouth. Ivan TABS 12:02: of 34 Medicin e Diclofenac 2021-08 Yes Apply [facility] Sodium 2 % 0-19 topically. Col lege SOLN 12:02: of 34 Medicin e lisinopril 2021-08 Yes 40mg Take 40 mg [place] (PRINIVIL, 0-19 by mouth. Dimitrios egkeysha ZESTRIL) 40 12:02: of MG tablet 34 Medicin e amlodipine 2021-08 Yes 10mg Take 10 mg [place] (NORVASC) 0-19 by mouth Colleg e 10 MG 12:02: daily. of tablet 34 Medicin e docusate 2021-08 Yes 100mg Take 100 [place] [facility] sodium 0-19 mg by [place] (COLACE) 12:02: mouth two of 100 MG 34 times Medicin capsule daily. e cyclobenzap 2021-08 Yes 5mg Take 5 mg [place] rine 0-19 by mouth 3 [place] (FLEXERIL) 12:02: times of 5 MG tablet 34 daily as Medi jennifer needed. e finasteride 2021-08 Yes 5mg Take 5 mg [place] (PROSCAR) 5 0-19 by mouth Dimitrios ege MG tablet 12:02: daily. of 34 Medicin e hydrocodone 2021-08 Yes 1{tbl} Take 1 [facility] -acetaminop 0-19 Tablet by [facility] ty govea (NORCO) 12:02: mouth of 10-325 MG 34 every 6 Medicin per tablet hours as e needed for Pain. ibuprofen 2021-08 Yes 800mg Take 800 [place] [facility] (MOTRIN) 0-19 mg by Ivan 800 mg 12:02: mouth of tablet 34 every 6 Medicin hours as e needed for Pain. metoprolol 2021-08 Yes 25mg Take 25 mg [place] (TOPROL-XL) 0-19 by mouth Dimitrios ege 25 MG XL 12:02: daily. of tablet 34 Medicin e Oxycodone 2021-08 Yes Take by [facility] HCl 10 MG 0-19 mouth. College TABS 12:02: of 34 Medicin e Diclofenac 2021-08 Yes Apply [facility] Sodium 2 % 0-19 topically. Col ty SOLDonald 12:02: of 34 Medicin e docusate 2021-08 Yes 100mg Take 100 [place] [facility] sodium 0-19 mg by [place] (COLACE) 12:02: mouth two of 100 MG 34 times Medicin capsule daily. e cyclobenzap 2021-08 Yes 5mg Take 5 mg [place] rine 0-19 by mouth 3 [place] (FLEXERIL) 12:02: times of 5 MG tablet 34 daily as Medi jennifer needed. e finasteride 2021-08 Yes 5mg Take 5 mg [place] (PROSCAR) 5 0-19 by mouth Dimitrios ege MG tablet 12:02: daily. of 34 Medicin e hydrocodone 2021-08 Yes 1{tbl} Take 1 [facility] -acetaminop 0-19 Tablet by Col lege hen (NORCO) 12:02: mouth of 10-325 MG 34 every 6 Medicin per tablet hours as e needed for Pain. metoprolol 2021-08 Yes 25mg Take 25 mg [place] (TOPROL-XL) 0-19 by mouth Dimitrios ege 25 MG XL 12:02: daily. of tablet 34 Medicin e Oxycodone 2021-08 Yes Take by [facility] HCl 10 MG 0-19 mouth. College TABS 12:02: of 34 Medicin e Diclofenac 2021-08 Yes Apply [place] Sodium 2 % 0-19 topically. Col lege SOLN 12:02: of 34 Medicin e docusate 2021-08 Yes 100mg Take 100 [place] [facility] sodium 0-19 mg by [place] (COLACE) 12:02: mouth two of 100 MG 34 times Medicin capsule daily. e hydrocodone 2021-08 Yes 1{tbl} Take 1 [facility] -acetaminop 0-19 Tablet by Col lege hen (NORNovate Medical) 12:02: mouth of 10-325 MG 34 every 6 Medicin per tablet hours as e needed for Pain. FENTanyl PF 2021-08- No 50ug 50 mcg, Un cassy (SUBLIMAZE 0-14 10-14 Slow IV ity o f (PF)) 15:23: 16:11 Push, [place] injection 00 :00 ONCE, 1 Medical 50 mcg dose, On Branch Thu05/16/22 at 1030, Routine ibuprofen 2021-08 Yes [id number] 400mg 400 mg, Univers (IBU) 0-13 Oral, TID ity of tablet 400 17:00: MEALS, [place] mg 00 First dose Medical (after Branch last modificati on) on [place] 05/15/22 at 1200, Until Discontinu ed, Routine KCL 2021-08- No 40meq 40 mEq, Univers (KLOR-CON 0-13 10-13 Oral, ity of M20) tablet 15:00: 15:54 ONCE, 1 [place] 40 mEq 00 :00 dose, On Medical [facility] Branch 05/15/22 at 1000, Routine metoprolol 2021-08 Yes 25mg 25 mg, Unive rs succinate 0-13 Oral, ity of XL (TOPROL 14:00: DAILY, [place] XL) tablet 00 First dose Med ical 25 mg on [facility] Branch 05/15/22 at 0900, Until Discontinu ed, Routine aspirin EC 2021-08 Yes 81mg 81 mg, Unive rs tablet 81 0-13 Oral, ity of mg 14:00: DAILY, First dose Medical on [facility] Branch 05/15/22 at 0900, Until Discontinu ed, Routine enoxaparin 2021-08 Yes 40mg 40 mg, Unive rs (LOVENOX) 0-13 Subcutaneo ity of injection 14:00: us, DAILY, [place] 40 mg 00 First dose Medical on [facility] Branch 05/15/22 at 0900, Until Discontinu ed, Routine multivitami 2021-08 Yes 1{tbl} 1 tablet, Univers n tablet 1 0-13 Oral, ity of tablet 14:00: DAILY, First dose Medical on [facility] Branch 05/15/22 at 0900, Until Discontinu ed, Routine sulfamethox 2021-08 Yes 1{tbl} 1 tablet, Univers azole-trime 0-13 Oral, BID, it y of thoprim 13:00: First dose [place] (BACTRIM 00 on [facility] DS) 800-160 05/15/22 Bran ch mg per at 0800, tablet 1 Until tablet Discontinu ed, ANNA
Re ason for Anti-Infec tive: Documented Infection< br>Documen anne marie Infection Site: Skin / Soft Tissue<br& gt;Duratio n of Therapy: 7 days zinc 2021-08 Yes 50mg 50 mg, Univers sulfate 0-13 Oral, TID, ity of (ORAZINC) 13:00: First dose [place] capsule 50 00 on [facility] Medical mg 05/15/22 Branch at 0800, Until Discontinu ed, Routine ascorbic 2021-08 Yes 500mg 500 mg, Unive rs acid 0-13 Oral, BID, ity of (vitamin C) 13:00: First dose [place] (VITAMIN C) 00 on [facility] Medica l tablet 500 05/15/22 Branc h mg at 0800, Until Discontinu ed, Routine magnesium 2021-08 No 2g 2 g, IV Univ ers sulfate in 0-13 - Piggyback, it y of water 2 11:00: 11:26 Administer Al[place]ie as gram/50 mL 00 :00 over 60 Medica l (4 %) Minutes, Branch infusion 2 ONCE, 1 g dose, On [place] 05/15/22 at 0600, Routine potassium 2021-08 No 20meq 20 mEq, IV Univers chloride in 005-15 Piggyback, i ty of water (KCL) 07:00: 11:00 Q2H, 2 [place] 20 mEq/100 00 :00 doses, Medical mL RTU IVPB First dose Br anch 20 mEq on [place] 05/15/22 at 0200, Last dose on Thu05/15/22 at 0400, 100 mL potassium 2021-08 No 20meq 20 mEq, IV Univers chloride in 05-15 Piggyback, i ty of water (KCL) 05:30: 07:46 ONCE, 1 [place] 20 mEq/100 00 :00 dose, On Medic al mL RTU IVPB [place] Branch 20 mEq 05/15/22 at 0030, 100 mL ibuprofen 2021-08 No 400mg 400 mg, Uni vers (IBU) 005-15 Oral, Q6H, ity of tablet 400 05:00: 16:27 First dose [place] mg 00 :03 on [facility] Medical 05/15/22 Branch at 0000, Until Discontinu ed, Routine acetaminoph 2021-08- No 650mg 650 mg, U nivers en 0-15 05-13 Oral, Q6H, ity of (TYLENOL) 05:00: 16:36 First dose [place] tablet 650 00 :04 on [facility] Medical mg 05/15/22 Branch at 0000, Until Discontinu ed, Routine Sliding 2021-08 Yes Subcutaneo Univ ers Scale 0-13 us, AC+HS, ity of Insulin-Reg 02:00: First dose [place] ular + Fsbg 00 on Thu Medica l Testing 05/14/22 Branch at 2100, Until Discontinu ed, Routine pantoprazol 2021-08- No 40mg 40 mg, Uni vers e 0- 10-16 Slow IV ity of (PROTONIX) 01:45: 01:29 Push, [place] injection 00 :00 Q24H, 3 Medical 40 mg doses, Branch First dose on Thu05/14/22 at 2045, Last dose on Thu05/16/22 at 2045 D5W 0.45% 2021-08- No IV Univers NaCl 0-13 10-13 Infusion, ity of (1/2NS) 1 L 01:45: 14:11 at 100 [place] as + KCL 20 00 :05 mL/hr, Medical mEq CONTINUOUS Branch , Starting on Thu05/14/22 at 2045, Until [place] 05/15/22 at 0911, Routine dextrose 2021-08 Yes 250mL 250 mL, IV Un cassy 10% (D10W) 0-13 Infusion, ity of bolus 01:24: PRN - SEE [place] infusion 11 INSTRUCTIO Medic al 250 mL NS, Branch Administer over 60 Minutes, Other, If blood glucose is < or = 70 mg/dL and patient is unable to swallow or has mental status changes, Starting on Thu05/14/22 at 2023
If blood glucose is < or = 70 mg/dL and patient is unable to swallow or has mental status changes (Give glucagon order if patient needs fluid restrictio n): IF IV access available: Dextrose 10%. 1. 125 mL (? bag) of D10W IV infusion - equivalent to 12.5 g dextrose 2. Blood glucose - draw blood glucose 15 minutes after D10W Administra tion. 3. If blood glucose is < 80 mg/dL, repeat.
glucagon 2021-08 Yes 1mg 1 mg, Univers (GLUCAGEN 0-13 Intramuscu ity of DIAGNOSTIC 01:24: lar, PRN, [place] KIT) 07 Starting Medical injection 1 on Thu Branch mg 05/14/22 at 2023, Until Discontinu ed, ANNA, Blood Glucose < or = 70 mg/dL and patient is unable to swallow or has mental changes. HYDROcodone 2021-08 Yes 1{tbl} 1 tablet, Univers -acetaminop 0-13 Oral, ity of hen (NORCO 01:23: Q6HPRN, [place] 5) 5-325 mg 05 Starting Medi jul[place] tablet 1 on Thu Branch tablet 05/14/22 at 2022, Until Discontinu ed, Routine, Pain (scale 4-6) nystatin / 2021-08 Yes Topical Univ ers bacitracin- 0-13 (Apply To ity of polymyxin b 01:19: Affected [place] oint 1:1 21 Areas), Medical POLY-MYCO PRN, Branch (COMPOUNDED Starting ) on Thu05/14/22 at 2019, Until Discontinu ed, Routine, Burn Care traMADoL 50 2021-08 Yes 50mg Take 50 mg Univers mg tablet 0-05 by mouth ity of 00:00: every 8 [place] [id number] (eight) Medical hours as Branch needed. furosemide 2021-08 Yes 20mg Take 20 mg U nivers 20 mg 0-05 by mouth ity of tablet 00:00: in the [place] 00 morning. Medical Branch traMADoL 50 2021-08 Yes 50mg Take 50 mg Univers mg tablet 0-05 by mouth ity of 00:00: every 8 [place] 00 (eight) Medical hours as Branch needed. furosemide 2021-08 Yes 20mg Take 20 mg U nivers 20 mg 0-05 by mouth ity of tablet 00:00: in the [place] 00 morning. Medical Branch traMADoL 50 2021-08 Yes 50mg Take 50 mg Univers mg tablet 0-05 by mouth ity of 00:00: every 8 [place] 00 (eight) Medical hours as Branch needed. furosemide 2021-08 Yes 20mg Take 20 mg U nivers 20 mg 0-05 by mouth ity of tablet 00:00: in the [place] 00 morning. Medical Branch traMADoL 50 2021-08 Yes 50mg Take 50 mg Univers mg tablet 0-05 by mouth ity of 00:00: every 8 [place] 00 (eight) Medical hours as Branch needed. traMADoL 50 2021-08 Yes 50mg Take 50 mg Univers mg tablet 0-05 by mouth ity of 00:00: every 8 [place] 00 (eight) Medical hours as Branch needed. furosemide 2021-08 Yes 20mg Take 20 mg U nivers 20 mg 0-05 by mouth ity of tablet 00:00: in the [place] 00 morning. Medical Branch furosemide 2021-08 Yes 20mg Take 20 mg U nivers 20 mg 0-05 by mouth ity of tablet 00:00: in the [place] 00 morning. Medical Branch traMADoL 50 2021-08 50mg Take 50 mg Univers mg tablet 0-05 10-25 by mouth ity o f 00:00: 00:00 every 8 [place] 00 :00 (eight) Medical hours as Branch needed. furosemide 2021-08- No 20mg Take 20 mg Univers 20 mg 0-05 10-25 by mouth ity of tablet 00:00: 00:00 in the [place] 00 :00 morning. Medical Branch aspirin 81 2021-08 Yes 81mg Take 81 mg U nivers mg EC 0-04 by mouth ity of tablet 00:00: in the [place] 00 morning. Medical Branch aspirin 81 2021-08 Yes 81mg Take 81 mg U nivers mg EC 0-04 by mouth ity of tablet 00:00: in the [place] 00 morning. Medical Branch aspirin 81 2021-08 Yes 81mg Take 81 mg U nivers mg EC 0-04 by mouth ity of tablet 00:00: in the [place] 00 morning. Medical Branch aspirin 81 2021-08 Yes 81mg Take 81 mg U nivers mg EC 0-04 by mouth ity of tablet 00:00: in the [place] 00 morning. Medical Branch aspirin 81 2021-08 Yes 81mg Take 81 mg U nivers mg EC 0-04 by mouth ity of tablet 00:00: in the [place] 00 morning. Medical Branch Aspirin 2021-08 Yes [id number] TAKE 1 [place] [facility] (ASPIRIN 0-04 TABLET BY Colleg e LOW DOSE) 00:00: MOUTH of 81 MG 00 EVERY DAY Medicin tablet e Aspirin 2021-08 Yes [id number] TAKE 1 [place] [facility] (ASPIRIN 0-04 TABLET BY Colleg e LOW DOSE) 00:00: MOUTH of 81 MG 00 EVERY DAY Medicin tablet e Aspirin 2021-08 Yes [id number] TAKE 1 [place] [facility] (ASPIRIN 0-04 TABLET BY Colleg e LOW DOSE) 00:00: MOUTH of 81 MG 00 EVERY DAY Medicin tablet e Aspirin 2021-08 Yes [id number] TAKE 1 [facility] (ASPIRIN 0-04 TABLET BY [facility] LOW DOSE) 00:00: MOUTH of 81 MG 00 EVERY DAY Medicin tablet e Aspirin 2021-08 Yes [id number] TAKE 1 [facility] (ASPIRIN 0-04 TABLET BY [facility] LOW DOSE) 00:00: MOUTH of 81 MG 00 EVERY DAY Medicin tablet e aspirin 81 2021-08- No 81mg Take 81 mg [facility] mg EC 0-04 10-25 by mouth ity of tablet 00:00: 00:00 in the [place] 00 :00 morning. Medical Branch carvediloL 2022-0 Yes 12.5mg Take 12.5 [facility] 12.5 mg 9-09 mg by ity of tablet 00:00: mouth in [place] 00 the Medical morning Branch and 12.5 mg in the evening. carvediloL 2022-0 Yes 12.5mg Take 12.5 [facility] 12.5 mg 9-09 mg by ity of tablet 00:00: mouth in [place] 00 the Medical morning Branch and 12.5 mg in the evening. carvediloL 2022-0 Yes 12.5mg Take 12.5 [facility] 12.5 mg 9-09 mg by ity of tablet 00:00: mouth in [place] 00 the Medical morning Branch and 12.5 mg in the evening. carvediloL 2022-0 Yes 12.5mg Take 12.5 [facility] 12.5 mg 9-09 mg by ity of tablet 00:00: mouth in [place] 00 the Medical morning Branch and 12.5 mg in the evening. carvediloL 2-0 2022- No 12.5mg Take 12.5 [facility] 12.5 mg 9-09 10-25 mg by ity of tablet 00:00: 00:00 mouth in [place] 00 :00 the Medical morning Branch and 12.5 mg in the evening. carvediloL 2-0 2022- No 12.5mg Take 12.5 [facility] 12.5 mg 9-09 10-25 mg by ity of tablet 00:00: 00:00 mouth in [place] 00 :00 the Medical morning Branch and 12.5 mg in the evening. amLODIPine 2022-0 Yes 10mg Take 10 mg [facility] 10 mg 9-08 by mouth ity of tablet 00:00: at [place] [address] bedtime. Medical Branch amLODIPine 2022-0 Yes 10mg Take 10 mg [facility] 10 mg 9-08 by mouth ity of tablet 00:00: at [place] [address] bedtime. Medical Branch amLODIPine 2022-0 Yes 10mg Take 10 mg [facility] 10 mg 9-08 by mouth ity of tablet 00:00: at [place] [address] bedtime. Medical Branch amLODIPine 2022-0 Yes 10mg Take 10 mg [facility] 10 mg 9-08 by mouth ity of tablet 00:00: at [place] [address] bedtime. Medical Branch amLODIPine 2022-0 2022- No 10mg Take 10 mg [facility] 10 mg 04-10 10-25 by mouth ity of tablet 00:00: 00:00 at [place] 00 :00 bedtime. Medical Branch amLODIPine 2021-0 2021- No 10mg Take 10 mg [facility] 10 mg 04-10 10-25 by mouth ity of tablet 00:00: 00:00 at [place] 00 :00 bedtime. Medical Branch JANUVIA 50 2021-0 Yes 50mg Take 50 mg [facility] mg tablet 9-06 by mouth ity of 00:00: in the [place] 00 morning. Medical Branch pantoprazol 0 Yes TAKE 1 [facility] ers e 40 mg EC 9-06 TABLET BY ity of tablet 00:00: MOUTH [place] [address] EVERY DAY Medical FOR 30 Branch DAYS lisinopriL 0 Yes 40mg Take 40 mg [facility] 40 mg 9-06 by mouth ity of tablet 00:00: in the [place] 00 morning. Medical Branch JANUVIA 50 2021-0 Yes 50mg Take 50 mg [facility] mg tablet 9-06 by mouth ity of 00:00: in the [place] 00 morning. Medical Branch pantoprazol 0 Yes TAKE 1 [facility] ers e 40 mg EC 9-06 TABLET BY ity of tablet 00:00: MOUTH [place] [address] EVERY DAY Medical FOR 30 Branch DAYS lisinopriL 0 Yes 40mg Take 40 mg [facility] 40 mg 9-06 by mouth ity of tablet 00:00: in the [place] 00 morning. Medical Branch JANUVIA 50 2021-0 Yes 50mg Take 50 mg [facility] mg tablet 9-06 by mouth ity of 00:00: in the [place] 00 morning. Medical Branch pantoprazol 2021-0 Yes TAKE 1 [facility] ers e 40 mg EC 9-06 TABLET BY ity of tablet 00:00: MOUTH [place] [address] EVERY DAY Medical FOR 30 Branch DAYS lisinopriL 2021-0 Yes 40mg Take 40 mg [facility] 40 mg 9-06 by mouth ity of tablet 00:00: in the [place] 00 morning. Medical Branch JANUVIA 50 2021-0 Yes 50mg Take 50 mg [facility] mg tablet 9-06 by mouth ity of 00:00: in the [place] 00 morning. Medical Branch pantoprazol 2021-0 Yes TAKE 1 [facility] ers e 40 mg EC 9-06 TABLET BY ity of tablet 00:00: MOUTH [place] [address] EVERY DAY Medical FOR 30 Branch DAYS lisinopriL 0 Yes 40mg Take 40 mg [facility] 40 mg 9-06 by mouth ity of tablet 00:00: in the [place] 00 morning. Medical Branch JANUVIA 50 0 Yes 50mg Take 50 mg [facility] mg tablet -06 by mouth ity of 00:00: in the [place] 00 morning. Medical Branch pantoprazol 0 Yes TAKE 1 [facility] ers e 40 mg EC 9-06 TABLET BY ity of tablet 00:00: MOUTH [place] [address] EVERY DAY Medical FOR 30 Branch DAYS lisinopriL 0 Yes 40mg Take 40 mg [facility] 40 mg -06 by mouth ity of tablet 00:00: in the [place] 00 morning. Medical Branch JANUVIA 50 0 2021- No 50mg Take 50 mg [facility] mg tablet 04-08-25 by mouth ity o f 00:00: 00:00 in the [place] 00 :00 morning. Medical Branch pantoprazol 2021-0 2021- No TAKE 1 [facility] vers e 40 mg EC -01 10-25 TABLET BY ity of tablet 00:00: 00:00 MOUTH [place] 00 :00 EVERY DAY Medical FOR 30 Branch DAYS lisinopriL 0 2021- No 40mg Take 40 mg [facility] 40 mg - 10-25 by mouth ity of tablet 00:00: 00:00 in the [place] 00 :00 morning. Medical Branch CABOMETYX 2021-0 Yes [facility] 40 mg 8-25 ity of tablet 00:00: [place] 00 Medical Branch CABOMETYX 2021-0 Yes [facility] 40 mg 8-25 ity of tablet 00:00: [place] 00 Medical Branch CABOMETYX 2021-0 Yes [facility] 40 mg 8-25 ity of tablet 00:00: [place] 00 Medical Branch CABOMETYX 2021-0 Yes [facility] 40 mg 8-25 ity of tablet 00:00: [place] 00 Medical Branch CABOMETYX 2021-0 Yes [facility] 40 mg 8-25 ity of tablet 00:00: [place] 00 Medical Branch CABOMETYX 2021-0 2021- No [facility] 40 mg 8-25 10-25 ity of tablet 00:00: 00:00 [place] 00 :00 Medical Branch atorvastati 2021-0 2021- No 40mg Take 40 mg [facility] n (LIPITOR) 8-10 08-10 by mouth [facility] 40 MG 10:39: 00:00 daily. of tablet 57 :00 Medicin e pravastatin 2021-0 2021- No 40mg Take 40 mg [facility] (PRAVACHOL) 8-10 08-10 by mouth [facility] 40 MG 10:39: 00:00 daily. of tablet 57 :00 Medicin e atorvastati 2021-0 2021- No 40mg Take 40 mg [facility] (LIPITOR) 8-10 08-10 by mouth [facility] 40 MG 10:39: 00:00 daily. of tablet 57 :00 Medicin e lisinopril 2021-0 Yes 40mg Take 40 mg [facility] (PRINIVIL, 8-10 by mouth. [facility] ZESTRIL) 40 09:30: of MG tablet 06 Medicin e amlodipine Yes 10mg Take 10 mg [facility] (NORVASC) 8-10 by mouth [facility] 10 MG 09:30: daily. of tablet 06 Medicin e docusate Yes 100mg Take 100 [facility] sodium 8-10 mg by [facility] (COLACE) 09:30: mouth two of 100 MG 06 times Medicin capsule daily. e cyclobenzap Yes 5mg Take 5 mg [facility] rine 8-10 by mouth 3 [facility] (FLEXERIL) 09:30: times of 5 MG tablet 06 daily as Medi jennifer needed. e finasteride 0 Yes 5mg Take 5 mg [facility] (PROSCAR) 5 8-10 by mouth [facility] e[facility] MG tablet 09:30: daily. of 06 Medicin e hydrocodone 0 Yes 1{tbl} Take 1 [facility] -acetaminop 8-10 Tablet by [facility] (NORCO) 09:30: mouth of 10-325 MG 06 every 6 Medicin per tablet hours as e needed for Pain. ibuprofen 0 Yes 800mg Take 800 [facility] (MOTRIN) 8-10 mg by [facility] 800 mg 09:30: mouth of tablet 06 every 6 Medicin hours as e needed for Pain. metoprolol 0 Yes 25mg Take 25 mg [facility] (TOPROL-XL) 8-10 by mouth [facility] e[facility] 25 MG XL 09:30: daily. of tablet 06 Medicin e Oxycodone Yes Take by [facility] HCl 10 MG 8-10 mouth. College TABS 09:30: of 06 Medicin e Diclofenac Yes Apply [facility] Sodium 8-10 topically. [facility] ([facility]) 09:30: of 2 % SOLN 06 Medicin e atorvastati Yes 40mg Take 40 mg [facility] n 40 mg 8-10 by mouth ity of tablet 00:00: at [place] [address] bedtime. Medical Branch atorvastati Yes 40mg Take 40 mg [facility] n 40 mg 8-10 by mouth ity of tablet 00:00: at [place] [address] bedtime. Medical Branch atorvastati Yes 40mg Take 40 mg [facility] n 40 mg 8-10 by mouth ity of tablet 00:00: at [place] [address] bedtime. Medical Branch atorvastati Yes 40mg Take 40 mg [facility] n 40 mg 8-10 by mouth ity of tablet 00:00: at [place] [address] bedtime. Medical Branch atorvastati 0 Yes 40mg Take 40 mg [facility] n 40 mg 8-10 by mouth ity of tablet 00:00: at [place] [address] bedtime. Medical Branch atorvastati Yes 40mg Take 1 [facility] (LIPITOR) 8-10 Tablet by [facility] 40 MG 00:00: mouth of tablet 00 daily. Medicin e atorvastati Yes 40mg Take 1 [facility] (LIPITOR) 8-10 Tablet by [facility] 40 MG 00:00: mouth of tablet 00 daily. Medicin e aspirin EC 0 Yes [id number] 81mg Take 1 [facility] 81 MG TBEC 8-10 Tablet by [facility] e[facility] 00:00: mouth of 00 daily. Medicin e atorvastati 0 Yes 40mg Take 1 [facility] (LIPITOR) 8-10 Tablet by [facility] 40 MG 00:00: mouth of tablet 00 daily. Medicin e atorvastati Yes 40mg Take 1 [facility] (LIPITOR) 8-10 Tablet by [facility] 40 MG 00:00: mouth of tablet 00 daily. Medicin e atorvastati 2021-0 Yes 40mg Take 1 [facility] (LIPITOR) 8-10 Tablet by [facility] 40 MG 00:00: mouth of tablet 00 daily. Medicin e atorvastati 2021-0 Yes 40mg Take 1 [facility] (LIPITOR) 8-10 Tablet by [facility] 40 MG 00:00: mouth of tablet 00 daily. Medicin e atorvastati 2021-0 Yes 40mg Take 1 [facility] (LIPITOR) 8-10 Tablet by [facility] 40 MG 00:00: mouth of tablet 00 daily. Medicin e atorvastati 2021-0 Yes 40mg Take 1 [facility] (LIPITOR) 8-10 Tablet by [facility] 40 MG 00:00: mouth of tablet 00 daily. Medicin e atorvastati 2021-0 2- No 40mg Take 40 mg [facility] n 40 mg 8-10 10-25 by mouth ity of tablet 00:00: 00:00 at [place] 00 :00 bedtime. Medical Branch ELIQUIS 5 2021-0 Yes 5mg Take 5 mg [facility] vers mg tablet 03-11 by mouth 2 ity of 00:00: (two) [place] 00 times Medical daily. Branch ELIQUIS 5 2021-0 Yes 5mg Take 5 mg [facility] vers mg tablet 03-11 by mouth 2 ity of 00:00: (two) [place] 00 times Medical daily. Branch ELIQUIS 5 2021-0 Yes 5mg Take 5 mg [facility] vers mg tablet 03-11 by mouth 2 ity of 00:00: (two) [place] 00 times Medical daily. Branch ELIQUIS 5 2021-0 Yes 5mg Take 5 mg [facility] vers mg tablet 03-11 by mouth 2 ity of 00:00: (two) [place] 00 times Medical daily. Branch ELIQUIS 5 2021-0 Yes 5mg Take 5 mg [facility] vers mg tablet 03-11 by mouth 2 ity of 00:00: (two) [place] 00 times Medical daily. Branch ELIQUIS 5 2021-0 2- No 5mg Take 5 mg [facility] mg tablet 03-11 10-25 by mouth 2 ity of 00:00: 00:00 (two) [place] 00 :00 times Medical daily. Branch lisinopril 2021-0 Yes 40mg Take 40 mg [facility] (PRINIVIL, 4-22 by mouth. [facility] ZESTRIL) 40 08:56: of MG tablet 48 Medicin e amlodipine 2021-0 Yes 10mg Take 10 mg [facility] (NORVASC) 4-22 by mouth Colleg [facility] 10 MG 08:56: daily. of tablet 48 Medicin e atorvastati 2021-0 Yes 40mg Take 40 mg [facility] (LIPITOR) 4-22 by mouth [facility] e[facility] 40 MG 08:56: daily. of tablet 48 Medicin e docusate 2021-0 Yes 100mg Take 100 [facility] sodium 4-22 mg by [facility] (COLACE) 08:56: mouth two of 100 MG 48 times Medicin capsule daily. e lisinopril 2021-0 Yes 40mg Take 40 mg [facility] (PRINIVIL, 4-01 by mouth. [facility] ZESTRIL) 40 08:40: of MG tablet 37 Medicin e amlodipine 2021-0 Yes 10mg Take 10 mg [facility] (NORVASC) 4-01 by mouth Colleg e 10 MG 08:40: daily. of tablet 37 Medicin e atorvastati 2021-0 Yes 40mg Take 40 mg [facility] n (LIPITOR) 4-01 by mouth [facility] e[facility] 40 MG 08:40: daily. of tablet 37 Medicin e docusate 2021-0 Yes 100mg Take 100 [facility] sodium 4-01 mg by [facility] (COLACE) 08:40: mouth two of 100 MG 37 times Medicin capsule daily. e lisinopril 2020-08 Yes 40mg Take 40 mg [facility] (PRINIVIL, 2-17 by mouth. [facility] ZESTRIL) 40 10:34: of MG tablet 00 Medicin e amlodipine 2020-08 Yes 10mg Take 10 mg [facility] (NORVASC) 2-17 by mouth Colleg e 10 MG 10:34: daily. of tablet 00 Medicin e atorvastati 2020-08 Yes 40mg Take 40 mg [facility] n (LIPITOR) 2-17 by mouth [facility] 40 MG 10:34: daily. of tablet 00 Medicin e docusate 2020-08 Yes 100mg Take 100 [facility] sodium 2-17 mg by [facility] (COLACE) 10:34: mouth two of 100 MG [...] atorvastati 2020-08 Yes 40mg Take 40 mg [facility] n (LIPITOR) 0-22 by mouth [facility] e[facility] 40 MG 13:10: daily. of tablet 13 Medicin e docusate 2020-08 Yes 100mg Take 100 [facility] sodium 0-22 mg by [facility] (COLACE) 13:10: mouth two of 100 MG [...] ointment 00 Medicin e CABOMETYX 2020-08 Yes [id number] TAKE 1 [facility] 40 MG TABS 0-04 TABLET BY Dimitrios nixon 00:00: MOUTH of 00 DAILY ON Medicin AN EMPTY e STOMACH 1 HOUR BEFORE OR 2 HOURS AFTER A MEAL CABOMETYX 2020-08 Yes [id number] TAKE 1 [facility] 40 MG TABS 0-04 TABLET BY D[facility]rios egkeysha 00:00: MOUTH of 00 DAILY ON Medicin AN EMPTY e STOMACH 1 HOUR BEFORE OR 2 HOURS AFTER A MEAL CABOMETYX 2020-08 Yes [id number] TAKE 1 [facility] 40 MG TABS 0-04 TABLET BY D[facility] egkeysha 00:00: MOUTH of 00 DAILY ON Medicin AN EMPTY e STOMACH 1 HOUR BEFORE OR 2 HOURS AFTER A MEAL CABOMETYX 2020-08 Yes [id number] TAKE 1 [facility] 40 MG TABS 0-04 TABLET BY [facility] ege 00:00: MOUTH of 00 DAILY ON Medicin AN EMPTY e STOMACH 1 HOUR BEFORE OR 2 HOURS AFTER A MEAL CABOMETYX 2020-08 Yes [id number] TAKE 1 [facility] 40 MG TABS 0-04 TABLET BY [facility] ege 00:00: MOUTH of 00 DAILY ON Medicin AN EMPTY e STOMACH 1 HOUR BEFORE OR 2 HOURS AFTER A MEAL CABOMETYX 2020-08 Yes [id number] TAKE 1 [facility] 40 MG TABS 0-04 TABLET BY [facility] ege 00:00: MOUTH of 00 DAILY ON Medicin AN EMPTY e STOMACH 1 HOUR BEFORE OR 2 HOURS AFTER A MEAL CABOMETYX 2020-08 Yes [id number] TAKE 1 [facility] 40 MG TABS 0-04 TABLET BY [facility] ege 00:00: MOUTH of 00 DAILY ON Medicin AN EMPTY e STOMACH 1 HOUR BEFORE OR 2 HOURS AFTER A MEAL CABOMETYX 2020-08 Yes [id number] TAKE 1 [facility] 40 MG TABS 0-04 TABLET BY [facility] ege 00:00: MOUTH of 00 DAILY ON Medicin AN EMPTY e STOMACH 1 HOUR BEFORE OR 2 HOURS AFTER A MEAL CABOMETYX 2020-08 Yes [id number] TAKE 1 [facility] 40 MG TABS 0-04 TABLET BY [facility] ege 00:00: MOUTH of 00 DAILY ON Medicin AN EMPTY e STOMACH 1 HOUR BEFORE OR 2 HOURS AFTER A MEAL CABOMETYX 2020-08 Yes [id number] TAKE 1 [facility] 40 MG TABS 0-04 TABLET BY [facility] ege 00:00: MOUTH of 00 DAILY ON Medicin AN EMPTY e STOMACH 1 HOUR BEFORE OR 2 HOURS AFTER A MEAL doxycycline 2021-0 Yes [facility] (ADOXA) 100 9-29 College MG tablet 00:00: of 00 Medicin e doxycycline 2021-0 Yes [facility] (ADOXA) 100 9-29 College MG tablet 00:00: of 00 Medicin e doxycycline 2021-0 Yes [facility] (ADOXA) 100 9-29 College MG tablet 00:00: of 00 Medicin e doxycycline 2021-0 Yes [facility] (ADOXA) 100 9-29 College MG tablet 00:00: of 00 Medicin e doxycycline 2021-0 Yes [facility] (ADOXA) 100 9-29 College MG tablet 00:00: of 00 Medicin e doxycycline 2020-0 Yes [facility] (ADOXA) 100 9-29 College MG tablet 00:00: of 00 Medicin e doxycycline 2020-0 Yes [facility] (ADOXA) 100 9-29 College MG tablet 00:00: of 00 Medicin e doxycycline 2020-0 Yes [facility] (ADOXA) 100 9-29 College MG tablet 00:00: of 00 Medicin e doxycycline 2020-0 Yes [facility] (ADOXA) 100 9-29 College MG tablet 00:00: of 00 Medicin e doxycycline 2020-0 Yes [facility] (ADOXA) 100 9-29 College MG tablet 00:00: of 00 Medicin e doxycycline 2020-0 Yes [facility] (ADOXA) 100 9-29 College MG tablet 00:00: of 00 Medicin e doxycycline 2020-0 Yes [facility] (ADOXA) 100 9-29 College MG tablet 00:00: of 00 Medicin e doxycycline 2020-0 Yes [facility] (ADOXA) 100 9-29 College MG tablet 00:00: of 00 Medicin e doxycycline 2020-0 Yes [facility] (ADOXA) 100 9-29 College MG tablet 00:00: of 00 Medicin e doxycycline 2020-0 Yes 100mg Take 1 [facility] (VIBRAMYCIN 9-27 capsule by Co llege ) 100 MG 00:00: mouth two of capsule 00 times Medicin daily. e doxycycline 2020-0 Yes 100mg Take 1 [facility] (VIBRAMYCIN 9-27 capsule by Co llege ) 100 MG 00:00: mouth two of capsule 00 times Medicin daily. e doxycycline 2020-0 Yes 100mg Take 1 [facility] (VIBRAMYCIN 9-27 capsule by Co llege ) 100 MG 00:00: mouth two of [place] 00 times Medicin daily. e doxycycline 2020-0 Yes 100mg Take 1 [facility] (VIBRAMYCIN 9-27 capsule by Co llege ) 100 MG 00:00: mouth two of capsule 00 times Medicin daily. e doxycycline 2020-0 Yes 100mg Take 1 [facility] (VIBRAMYCIN 9-27 capsule by Co llege ) 100 MG 00:00: mouth two of [place] 00 times Medicin daily. e doxycycline 2020-0 Yes 100mg Take 1 [facility] (VIBRAMYCIN 9-27 capsule by Co llege ) 100 MG 00:00: mouth two of [place] 00 times Medicin daily. e doxycycline 2020-0 Yes 100mg Take 1 [facility] (VIBRAMYCIN 9-27 capsule by Co llege ) 100 MG 00:00: mouth two of [place] 00 times Medicin daily. e doxycycline 1-0 Yes 100mg Take 1 [facility] (VIBRAMYCIN 9-27 capsule by Co llege ) 100 MG 00:00: mouth two of [place] 00 times Medicin daily. e doxycycline 2020-0 Yes 100mg Take 1 [facility] (VIBRAMYCIN 9-27 capsule by Co llege ) 100 MG 00:00: mouth two of [place] 00 times Medicin daily. e doxycycline 2020-0 Yes 100mg Take 1 [facility] (VIBRAMYCIN 9-27 capsule by Co llege ) 100 MG 00:00: mouth two of [place] 00 times Medicin daily. e doxycycline 2020-0 Yes 100mg Take 1 [facility] (VIBRAMYCIN 9-27 capsule by Co llege ) 100 MG 00:00: mouth two of [place] 00 times Medicin daily. e doxycycline 2020-0 Yes 100mg Take 1 [facility] (VIBRAMYCIN 9-27 capsule by Co llege ) 100 MG 00:00: mouth two of capsule 00 times Medicin daily. e doxycycline 2020-0 Yes 100mg Take 1 [facility] (VIBRAMYCIN 9-27 capsule by Co llege ) 100 MG 00:00: mouth two of [place] 00 times Medicin daily. e doxycycline 2020-0 Yes 100mg Take 1 [facility] (VIBRAMYCIN 9-27 capsule by Co llege ) 100 MG 00:00: mouth two of capsule 00 times Medicin daily. e triamcinolo 1-0 Yes Apply to [facility] 9-[facility] affected [facility] ([employer]) 00:00: area 2 of 0.1 % 00 times Medicin ointment daily. e Avoid face/groin /axillae triamcinolo 1-0 Yes Apply to [facility] 00:00: area 2 of 0.1 % 00 times Medicin ointment daily. e Avoid face/groin /axillae triamcinolo 1-0 Yes Apply to [facility] 9-[facility] affected [facility] ([employer]) 00:00: area 2 of 0.1 % 00 times Medicin ointment daily. e Avoid face/groin /axillae triamcinolo 2021-0 Yes Apply to [facility] 04-25 affected [facility] ([facility]) 00:00: area 2 of 0.1 % 00 times Medicin ointment daily. e Avoid face/groin /axillae triamcinolo 2021-0 Yes Apply to [facility] 04-25 affected [facility] ([facility]) 00:00: area 2 of 0.1 % 00 times Medicin ointment daily. e Avoid face/groin /axillae triamcinolo 2021-0 Yes Apply to [facility] 04-25 affected [facility] ([facility]) 00:00: area 2 of 0.1 % 00 times Medicin ointment daily. e Avoid face/groin /axillae triamcinolo 2021-0 Yes Apply to [facility] 04-25 affected [facility] ([facility]) 00:00: area 2 of 0.1 % 00 times Medicin ointment daily. e Avoid face/groin /axillae triamcinolo 2021-0 Yes Apply to [facility] 04-25 affected [facility] ([facility]) 00:00: area 2 of 0.1 % 00 times Medicin ointment daily. e Avoid face/groin /axillae triamcinolo 2021-0 Yes Apply to [facility] 04-[facility] 00:00: area 2 of 0.1 % 00 times Medicin ointment daily. e Avoid face/groin /axillae triamcinolo 2021-0 2022- No Apply to [facility] 04-25 affected [facility] 00:[facility]: 00:00 area 2 of 0.1 % 00 :00 times Medicin ointment daily. e Avoid face/groin /axillae triamcinolo 2021-0 2- No Apply to [facility] 04-25 affected [facility] 00:[facility]: 00:00 area 2 of 0.1 % 00 :00 times Medicin ointment daily. e Avoid face/groin /axillae ELIQUIS 5 2020-0 Yes [facility] MG TABS 9-16 College 00:00: of 00 Medicin e ELIQUIS 5 2020-0 Yes [facility] MG TABS 9-16 College 00:00: of 00 Medicin e ELIQUIS 5 2020-0 Yes TAKE 1 [facility] MG TABS 9-16 TABLET BY College 00:00: MOUTH of 00 TWICE A Medicin DAY e ELIQUIS 5 0 Yes TAKE 1 [facility] MG TABS 9-16 TABLET BY College 00:00: MOUTH of 00 TWICE A Medicin DAY e ELIQUIS 5 0 Yes TAKE 1 [facility] MG TABS 9-16 TABLET BY College 00:00: MOUTH of 00 TWICE A Medicin DAY e ELIQUIS 5 0 Yes TAKE 1 [facility] TABS 9-16 TABLET BY College 00:00: MOUTH of 00 TWICE A Medicin DAY e ELIQUIS 5 0 Yes TAKE 1 [facility] TABS 9-16 TABLET BY [facility] 00:00: MOUTH of 00 TWICE A Medicin DAY e ELIQUIS 5 0 Yes TAKE 1 [facility] MG TABS 9-16 TABLET BY College 00:00: MOUTH of 00 TWICE A Medicin DAY e ELIQUIS 5 0 Yes TAKE 1 [facility] MG TABS 9-16 TABLET BY [facility] 00:00: MOUTH of 00 TWICE A Medicin DAY e ELIQUIS 5 0 Yes TAKE 1 [facility] MG TABS 9-16 TABLET BY College 00:00: MOUTH of 00 TWICE A Medicin DAY e ELIQUIS 5 0 Yes TAKE 1 [facility] MG TABS 9-16 TABLET BY [facility] 00:00: MOUTH of 00 TWICE A Medicin DAY e ELIQUIS 5 0 Yes TAKE 1 [facility] MG TABS 9-16 TABLET BY [facility] 00:00: MOUTH of 00 TWICE A Medicin DAY e ELIQUIS 5 0 Yes [facility] MG TABS 9-16 [facility] 00:00: of 00 Medicin e ELIQUIS 5 2020-0 Yes [facility] MG TABS 9-16 [facility] 00:00: of 00 Medicin e carvedilol 0 Yes TAKE 1 [facility] (COREG) 9-13 TABLET BY [facility] 12.5 MG 00:00: MOUTH of tablet 00 TWICE A Medicin DAY e carvedilol 0 Yes TAKE 1 [facility] (COREG) 9-13 TABLET BY [facility] 12.5 MG 00:00: MOUTH of tablet 00 TWICE A Medicin DAY e carvedilol 0 Yes TAKE 1 [facility] (COREG) 9-13 TABLET BY [facility] 12.5 MG 00:00: MOUTH of tablet 00 TWICE A Medicin DAY e carvedilol 0 Yes TAKE 1 [facility] (COREG) 9-13 TABLET BY [facility] 12.5 MG 00:00: MOUTH of tablet 00 TWICE A Medicin DAY e carvedilol 0 Yes TAKE 1 [facility] (COREG) 9-13 TABLET BY [facility] 12.5 MG 00:00: MOUTH of tablet 00 TWICE A Medicin DAY e carvedilol 0 Yes TAKE 1 [facility] (COREG) 9-13 TABLET BY [facility] 12.5 MG 00:00: MOUTH of tablet 00 TWICE A Medicin DAY e carvedilol Yes [facility] (COREG) 9-13 [facility] 12.5 MG 00:00: of tablet 00 Medicin e carvedilol 0 Yes [facility] (COREG) 9-13 [facility] 12.5 MG 00:00: of tablet 00 Medicin e carvedilol 0 2- No [facility] (COREG) 9-13 11-08 College 12.5 MG 00:00: 00:00 of tablet 00 :00 Medicin e carvedilol 0 2- No [facility] (COREG) 9-13 11-08 [facility] 12.5 MG 00:00: 00:00 of tablet 00 :00 Medicin e lisinopril 0 Yes 40mg Take 40 mg [facility] (PRINIVIL, 8-24 by mouth. [facility] e[facility] ZESTRIL) 40 11:32: of MG tablet 28 Medicin e amlodipine 0 Yes 10mg Take 10 mg [facility] (NORVASC) 8-24 by mouth Colleg e 10 MG 11:32: daily. of tablet 28 Medicin e atorvastati 0 Yes 40mg Take 40 mg [facility] n (LIPITOR) 8-24 by mouth [facility] e[facility] 40 MG 11:32: daily. of tablet 28 Medicin e docusate Yes 100mg Take 100 [facility] sodium 8-24 mg by [facility] (COLACE) 11:32: mouth two of 100 MG 28 times Medicin capsule daily. e lisinopril 1-0 Yes 40mg Take 40 mg [facility] (PRINIVIL, 8-24 by mouth. [facility] e[facility] ZESTRIL) 40 11:32: of MG tablet 28 Medicin e amlodipine 2020-0 Yes 10mg Take 10 mg [facility] (NORVASC) 8-24 by mouth Colleg e 10 MG 11:32: daily. of tablet 28 Medicin e atorvastati 2020-0 Yes 40mg Take 40 mg [facility] n (LIPITOR) 8-24 by mouth [facility] e[facility] 40 MG 11:32: daily. of tablet 28 Medicin e docusate 2020-0 Yes 100mg Take 100 [facility] sodium 8-24 mg by [facility] (COLACE) 11:32: mouth two of 100 MG [...] atorvastati 2020-0 Yes 40mg Take 40 mg [facility] n (LIPITOR) 8-24 by mouth [facility] 40 MG 11:32: daily. of tablet 28 Medicin e docusate 2020-0 Yes 100mg Take 100 [facility] sodium 8-24 mg by [facility] (COLACE) 11:32: mouth two of 100 MG [...] atorvastati 2020-0 Yes 40mg Take 40 mg [facility] n (LIPITOR) 8-24 by mouth [facility] e[facility] 40 MG 11:32: daily. of tablet 28 Medicin e docusate 2020-0 Yes 100mg Take 100 [facility] sodium 8-24 mg by [facility] ([facility]) 11:32: mouth two of 100 MG 28 times Medicin capsule daily. e MAG64 64 MG 2020-0 Yes [facility] TBEC 8-18 College 00:00: of 00 Medicin e MAG64 64 MG 2020-0 Yes [facility] TBEC 8-18 [facility] 00:00: of 00 Medicin e MAG64 64 MG 2020-0 Yes TAKE 1 [facility] TBEC 8-18 TABLET BY [facility] 00:00: MOUTH of 00 TWICE A Medicin DAY e MAG64 64 MG 2020-0 Yes TAKE 1 [facility] TBEC 8-18 TABLET BY [facility] 00:00: MOUTH of 00 TWICE A Medicin DAY e MAG64 64 MG 2020-0 Yes TAKE 1 [facility] TBEC 8-18 TABLET BY [facility] 00:00: MOUTH of 00 TWICE A Medicin DAY e MAG64 64 MG 2020-0 Yes TAKE 1 [facility] TBEC 8-18 TABLET BY [facility] 00:00: MOUTH of 00 TWICE A Medicin DAY e MAG64 64 MG 2020-0 Yes TAKE 1 [facility] TBEC 8-18 TABLET BY [facility] 00:00: MOUTH of 00 TWICE A Medicin DAY e MAG64 64 MG 2020-0 Yes TAKE 1 [facility] TBEC 8-18 TABLET BY [facility] 00:00: MOUTH of 00 TWICE A Medicin DAY e MAG64 64 MG 2020-0 Yes TAKE 1 [facility] TBEC 8-18 TABLET BY [facility] 00:00: MOUTH of 00 TWICE A Medicin DAY e MAG64 64 MG 2020-0 Yes TAKE 1 [facility] TBEC 8-18 TABLET BY [facility] 00:00: MOUTH of 00 TWICE A Medicin DAY e MAG64 64 MG 2020-0 Yes TAKE 1 [facility] 8[facility] TABLET BY [facility] 00:00: MOUTH of 00 TWICE A Medicin DAY e MAG64 64 MG 2020-0 Yes TAKE 1 [facility] 8-[facility] TABLET BY [facility] 00:00: MOUTH of 00 TWICE A Medicin DAY e MAG64 64 MG 2020-0 Yes TAKE 1 [facility] 8-[facility] TABLET BY [facility] 00:00: MOUTH of 00 TWICE A Medicin DAY e MAG64 64 MG 2020-0 Yes [facility] TBEC 8-18 College 00:00: of 00 Medicin e omeprazole 2021-0 Yes [facility] (PRILOSEC) 8-11 College 40 MG 00:00: of capsule 00 Medicin e omeprazole 2020-0 Yes [facility] (PRILOSEC) 8-11 College 40 MG 00:00: of capsule 00 Medicin e omeprazole 2020-0 Yes TAKE 1 [facility] (PRILOSEC) 8-11 CAPSULE BY [facility] 40 MG 00:00: MOUTH of capsule 00 EVERY DAY Medicin e omeprazole 0 Yes TAKE 1 [facility] (PRILOSEC) 8-11 [...] EVERY DAY Medicin e omeprazole 2020-0 Yes [facility] (PRILOSEC) 8-11 [facility] 40 MG 00:00: of capsule 00 Medicin e omeprazole 2020-0 Yes [facility] (PRILOSEC) 8-11 [facility] 40 MG 00:00: of capsule 00 Medicin e omeprazole 2020-0 Yes [facility] (PRILOSEC) 8-11 [facility] 40 MG 00:00: of capsule 00 Medicin e omeprazole 2020-0 Yes [facility] (PRILOSEC) 8-11 [facility] 40 MG 00:00: of capsule 00 Medicin e omeprazole 2020-0 Yes [facility] (PRILOSEC) 8-11 [facility] 40 MG 00:00: of capsule 00 Medicin e omeprazole 2020-0 Yes [facility] (PRILOSEC) 8-11 [facility] 40 MG 00:00: of capsule 00 Medicin e lisinopril 2020-0 Yes 40mg Take 40 mg [facility] (PRINIVIL, 6-22 by mouth. [facility] ZESTRIL) 40 11:48: of MG tablet 18 Medicin e amlodipine 0 Yes 10mg Take 10 mg [facility] (NORVASC) 6-22 by mouth [facility] e 10 MG 11:48: daily. of tablet 18 Medicin e atorvastati 0 Yes 40mg Take 40 mg [facility] (LIPITOR) 6-22 by mouth [facility] 40 MG 11:48: daily. of tablet 18 Medicin e docusate 0 Yes 100mg Take 100 [facility] sodium 6-22 mg by [facility] (COLACE) 11:48: mouth two of 100 MG 18 times Medicin capsule daily. e lisinopril 0 Yes 40mg Take 40 mg [facility] (PRINIVIL, 4-27 by mouth. [facility] ZESTRIL) 40 15:16: of MG tablet 51 Medicin e amlodipine Yes 10mg Take 10 mg [facility] (NORVASC) 4-27 by mouth [facility] 10 MG 15:16: daily. of tablet 51 Medicin e atorvastati 0 Yes 40mg Take 40 mg [facility] (LIPITOR) 4-27 by mouth [facility] 40 MG 15:16: daily. of tablet 51 Medicin e docusate 0 Yes 100mg Take 100 [facility] sodium 4-27 mg by [facility] (COLACE) 15:16: mouth two of 100 MG 51 times Medicin capsule daily. e tramadol 2020-0 2020- No 50mg Take 50 mg [facility] (ULTRAM) 50 -27 11-27 by mouth [facility] MG tablet 15:16: 00:00 every 6 of 44 :00 hours as Medicin needed for e Pain. lisinopril 0 Yes 40mg Take 40 mg [facility] (PRINIVIL, 3-02 by mouth. [facility] ZESTRIL) 40 16:02: of MG tablet 51 Medicin e amlodipine 0 Yes 10mg Take 10 mg [facility] (NORVASC) 3-02 by mouth [facility] 10 MG 16:02: daily. of tablet 51 Medicin e tramadol 0 Yes 50mg Take 50 mg [facility] (ULTRAM) 50 3-02 by mouth [facility] MG tablet 16:02: every 6 of 51 hours as Medicin needed for e Pain. atorvastati Yes 40mg Take 40 mg [facility] n (LIPITOR) 3-02 by mouth [facility] 40 MG 16:02: daily. of tablet 51 Medicin e docusate Yes 100mg Take 100 [facility] sodium 3-02 mg by [facility] (COLACE) 16:02: mouth two of 100 MG 51 [...] tramadol 2019-08 Yes 50mg Take 50 mg [facility] (ULTRAM) 50 2-22 by mouth [facility] MG tablet 15:47: every 6 of 30 hours as Medicin needed for e Pain. atorvastati 2019-08 Yes 40mg Take 40 mg [facility] n (LIPITOR) 2-22 by mouth [facility] 40 MG 15:47: daily. of tablet 30 Medicin e docusate 2019-08 Yes 100mg Take 100 [facility] 2[facility]22 [facility] 15:47: mouth two of 100 MG 30 [...] tramadol 2019-08 Yes 50mg Take 50 mg [facility] (ULTRAM) 50 0-23 by mouth [facility] MG tablet 17:26: every 6 of 37 hours as Medicin needed for e Pain. atorvastati 2019-08 Yes 40mg Take 40 mg [facility] (LIPITOR) 0-23 by mouth [facility] 40 MG 17:26: daily. of tablet 37 Medicin e docusate 2019-08 Yes 100mg Take 100 [facility] sodium 0-23 mg by [facility] (COLACE) 17:26: mouth two of 100 MG 37 times Medicin capsule daily. e atorvastati 2019-08 Yes 40mg QD Take [address] [facility] (LIPITOR) 0-08 by mouth [facility] 40 MG 17:37: daily. Medical tablet 48 [place] lisinopril 2019-08 Yes 40mg QD Take [address] [facility] (PRINIVIL,Z 0-08 by mouth [facility] ESTRIL) 40 17:37: daily. Medic al MG tablet 48 [place] aspirin 81 2019-08 Yes 81mg QD Take [address] [facility] EC 0-08 [facility] tablet 17:37: daily. Medical [address] [place] [address] docusate 2019-08 Yes 100mg QD Take [address] [facility] sodium 0-08 mg by [facility] (COLACE) 17:37: mouth Medical 100 MG 48 daily. [place] capsule atorvastati 2019-08 Yes 40mg QD Take [address] [facility] (LIPITOR) 0-08 by mouth [facility] 40 MG 17:37: daily. Medical tablet 48 [place] lisinopril 2019-08 Yes 40mg QD Take [address] (PRINIVIL,Z 0-08 by mouth [facility] ESTRIL) 40 17:37: daily. Medic al MG tablet 48 [place] aspirin 81 2019-08 Yes 81mg QD Take [address] MG EC 0-08 by mouth [facility] tablet 17:37: daily. Medical [address] [place] [address] docusate 2019-08 Yes 100mg QD Take [address] [facility] [address] sodium 0-08 mg by [facility] (COLACE) 17:37: mouth Medical 100 MG 48 daily. [place] capsule atorvastati 2019-08 Yes 40mg QD Take [address] [facility] (LIPITOR) 0-08 by mouth [facility] 40 MG 17:37: daily. Medical tablet 48 [place] lisinopril 2019-08 Yes 40mg QD Take [address] (PRINIVIL,Z 0-08 by mouth [facility] ESTRIL) 40 17:37: daily. Medic al MG tablet 48 [place] aspirin 81 2019-08 Yes 81mg QD Take [address] MG EC 0-08 by mouth [facility] tablet 17:37: daily. Medical [address] [place] [address] docusate 2019-08 Yes 100mg QD Take [address] [facility] [address] sodium 0-08 mg by [facility] (COLACE) 17:37: mouth Medical 100 MG 48 daily. [place] capsule atorvastati 2019-08 Yes 40mg QD Take [address] [facility] (LIPITOR) 0-08 by mouth [facility] 40 MG 17:37: daily. Medical tablet 48 [place] lisinopril 2019-08 Yes 40mg QD Take [address] (PRINIVIL,Z 0-08 by mouth [facility] ESTRIL) 40 17:37: daily. Medic al MG tablet 48 [place] aspirin 81 2019-08 Yes 81mg QD Take [address] MG EC 0-08 by mouth [facility] tablet 17:37: daily. [address] docusate 2019-08 Yes 100mg QD Take [address] [facility] sodium 0-08 mg by [facility] (COLACE) 17:37: mouth Medical 100 MG 48 daily. [place] capsule atorvastati 2019-08 Yes 40mg QD Take [address] [facility] (LIPITOR) 0-08 by mouth [facility] 40 MG 17:37: daily. Medical tablet 48 [place] lisinopril 2019-08 Yes 40mg QD Take [address] (PRINIVIL,Z 0-08 by mouth [facility] ESTRIL) 40 17:37: daily. Medic al MG tablet 48 [place] aspirin 81 2019-08 Yes 81mg QD Take [address] [facility] EC 0-08 by mouth [facility] tablet 17:37: daily. [address] docusate 2019-08 Yes 100mg QD Take [address] [facility] sodium 0-08 mg by [facility] (COLACE) 17:37: mouth Medical 100 MG 48 daily. [place] capsule atorvastati 2019-08 Yes 40mg QD Take [address] [facility] (LIPITOR) 0-08 by mouth [facility] 40 MG 17:37: daily. Medical tablet 48 [place] lisinopril 2019-08 Yes 40mg QD Take [address] (PRINIVIL,Z 0-08 by mouth [facility] ESTRIL) 40 17:37: daily. Medic al MG tablet 48 [place] aspirin 81 2019-08 Yes 81mg QD Take [address] [facility] EC 0-08 by mouth [facility] tablet 17:37: daily. [address] docusate 2019-08 Yes 100mg QD Take [address] [facility] [address] sodium 0-08 mg by [facility] (COLACE) 17:37: mouth Medical 100 MG 48 daily. Center capsule atorvastati 2019-08 Yes 40mg QD Take [address] [facility] (LIPITOR) 0-08 by mouth [facility] 40 MG 17:37: daily. Medical tablet 48 [place] lisinopril 2019-08 Yes 40mg QD Take [address] (PRINIVIL,Z 0-08 by mouth [facility] ESTRIL) 40 17:37: daily. Medic al MG tablet 48 [place] aspirin 81 2019-08 Yes 81mg QD Take [address] MG EC 0-08 by mouth [facility] tablet 17:37: daily. Medical 48 [place] docusate 2019-08 Yes 100mg QD Take [address] [facility] sodium 0-08 mg by [facility] (COLACE) 17:37: mouth Medical 100 MG 48 daily. [place] capsule atorvastati 2019-08 Yes 40mg QD Take [address] [facility] (LIPITOR) 0-08 by mouth [facility] 40 MG 17:37: daily. Medical tablet 48 [place] lisinopril 2019-08 Yes 40mg QD Take [address] (PRINIVIL,Z 0-08 by mouth [facility] ESTRIL) 40 17:37: daily. Medic al MG tablet 48 [place] aspirin 81 2019-08 Yes 81mg QD Take [address] MG EC 0-08 by mouth [facility] tablet 17:37: daily. Medical [address] [place] [address] docusate 2019-08 Yes 100mg QD Take [address] [facility] [address] sodium 0-08 mg by [facility] (COLACE) 17:37: mouth Medical 100 MG 48 daily. [place] capsule atorvastati 2019-08 Yes 40mg QD Take [address] [facility] (LIPITOR) 0-08 by mouth [facility] 40 MG 17:37: daily. Medical tablet 48 [place] lisinopril 2019-08 Yes 40mg QD Take [address] (PRINIVIL,Z 0-08 by mouth [facility] ESTRIL) 40 17:37: daily. Medic al MG tablet 48 [place] aspirin 81 2019-08 Yes 81mg QD Take [address] MG EC 0-08 by mouth [facility] tablet 17:37: daily. Medical [address] [place] [address] docusate 2019-08 Yes 100mg QD Take [address] [facility] [address] sodium 0-08 mg by [facility] (COLACE) 17:37: mouth Medical 100 MG 48 daily. [place] capsule atorvastati 2019-08 Yes 40mg QD Take [address] [facility] (LIPITOR) 0-08 by mouth [facility] 40 MG 17:37: daily. Medical tablet 48 [place] lisinopril 2019-08 Yes 40mg QD Take [address] (PRINIVIL,Z 0-08 by mouth [facility] ESTRIL) 40 17:37: daily. Medic al MG tablet 48 [place] aspirin 81 2019-08 Yes 81mg QD Take [address] MG EC 0-08 by mouth [facility] tablet 17:37: daily. Medical 48 [place] docusate 2019-08 Yes 100mg QD Take [address] [facility] [address] sodium 0-08 mg by [facility] (COLACE) 17:37: mouth Medical 100 MG 48 daily. [place] capsule atorvastati 2019-08 Yes 40mg QD Take [address] [facility] (LIPITOR) 0-08 by mouth [facility] 40 MG 17:37: daily. Medical tablet 48 [place] lisinopril 2019-08 Yes 40mg QD Take [address] (PRINIVIL,Z 0-08 by mouth [facility] ESTRIL) 40 17:37: daily. Medic al MG tablet 48 [place] aspirin 81 2019-08 Yes 81mg QD Take [address] MG EC 0-08 by mouth [facility] tablet 17:37: daily. [address] docusate 2019-08 Yes 100mg QD Take [address] [facility] [address] sodium 0-08 mg by [facility] (COLACE) 17:37: mouth Medical 100 MG 48 daily. [place] capsule atorvastati 2019-08 Yes 40mg QD Take [address] [facility] (LIPITOR) 0-08 by mouth [facility] 40 MG 17:37: daily. Medical tablet 48 [place] lisinopril 2019-08 Yes 40mg QD Take [address] (PRINIVIL,Z 0-08 by mouth [facility] ESTRIL) 40 17:37: daily. Medic al MG tablet 48 [place] aspirin 81 2019-08 Yes 81mg QD Take [address] MG EC 0-08 by mouth [facility] tablet 17:37: daily. Medical [address] [place] [address] docusate 2019-08 Yes 100mg QD Take [address] [facility] [address] sodium 0-08 mg by [facility] (COLACE) 17:37: mouth Medical 100 MG 48 daily. [place] capsule acetaminoph 2019-08 Yes 650mg Take [address] [facility] 0-08 tablets [facility] (TYLENOL) 00:00: (650 mg Medic al 325 MG 00 total) by Center tablet mouth every 6 (six) hours as needed for Pain. acetaminoph 2020-1 Yes 650mg Take [address] [facility] 0-08 tablets [facility] (TYLENOL) 00:00: (650 mg Medic al 325 MG 00 total) by Center tablet mouth every 6 (six) hours as needed for Pain. acetaminoph 2020-1 Yes 650mg Take [address] [facility] 0-08 tablets [facility] (TYLENOL) 00:00: (650 mg Medic al 325 MG 00 total) by Center tablet mouth every 6 (six) hours as needed for Pain. acetaminoph 2020-1 Yes 650mg Take [address] [facility] 0-08 tablets [facility] (TYLENOL) 00:00: (650 mg Medic al 325 MG 00 total) by Center tablet mouth every 6 (six) hours as needed for Pain. acetaminoph 2020-1 Yes 650mg Take [address] [facility] 0-08 tablets [facility] (TYLENOL) 00:00: (650 mg Medic al 325 MG 00 total) by Center tablet mouth every 6 (six) hours as needed for Pain. acetaminoph 2020-1 Yes 650mg Take [address] [facility] 0-08 [facility] (TYLENOL) 00:00: (650 mg Medic al 325 MG 00 total) by Center tablet mouth every 6 (six) hours as needed for Pain. acetaminoph 2020-1 Yes 650mg Take [address] [facility] 0-08 [facility] (TYLENOL) 00:00: (650 mg Medic al 325 MG 00 total) by Center tablet mouth every 6 (six) hours as needed for Pain. acetaminoph 2020-1 Yes 650mg Take [address] [facility] 0-08 [facility] (TYLENOL) 00:00: (650 mg Medic al 325 MG 00 total) by Center tablet mouth every 6 (six) hours as needed for Pain. acetaminoph 2020-1 Yes 650mg Take [address] [facility] 0-08 [facility] (TYLENOL) 00:00: (650 mg Medic al 325 MG 00 total) by Center tablet mouth every 6 (six) hours as needed for Pain. acetaminoph 2020-1 Yes 650mg Take [address] [facility] 0-08 [facility] (TYLENOL) 00:00: (650 mg Medic al 325 MG 00 total) by Center tablet mouth every 6 (six) hours as needed for Pain. acetaminoph 2020-1 Yes 650mg Take [address] [facility] 0-08 [facility] (TYLENOL) 00:00: (650 mg Medic al 325 MG 00 total) by Center tablet mouth every 6 (six) hours as needed for Pain. acetaminoph 2020-1 Yes 650mg Take [address] [facility] 0-08 [facility] (TYLENOL) 00:00: (650 mg Medic al 325 [...] tramadol 2020-0 Yes 50mg Take 50 mg [facility] (ULTRAM) 50 9-25 by mouth [facility] MG tablet 14:59: every 6 of 43 hours as Medicin needed for e Pain. atorvastati 2020-0 Yes 40mg Take 40 mg [facility] n (LIPITOR) 9-25 by mouth [facility] 40 MG 14:59: daily. of tablet 43 Medicin e docusate 2020-0 Yes 100mg Take 100 [facility] sodium 9-25 mg by [facility] (COLACE) 14:59: mouth two of 100 MG 43 times Medicin capsule daily. e CABOMETYX 2020-0 Yes 1{tbl} QD Take [address] [facility] 40 mg Tab 9-17 tablet by [facility]: mouth Medical 00 daily. Center CABOMETYX 2020-0 Yes 1{tbl} QD Take [address] [facility] 40 mg Tab 9-17 tablet by [facility] 00:[facility]: mouth Medical 00 daily. Center CABOMETYX 2020-0 Yes 1{tbl} QD Take [address] [facility] 40 mg Tab 9-17 tablet by [facility] 00:[facility]: mouth Medical 00 daily. [place] CABOMETYX 2020-0 Yes 1{tbl} QD Take [address] [facility] 40 mg Tab 9-17 tablet by [facility] 00:[facility]: mouth Medical 00 daily. [place] CABOMETYX 2020-0 Yes 1{tbl} QD Take [address] [facility] 40 mg Tab 9-17 tablet by [facility] 00:[facility]: mouth Medical 00 daily. [place] CABOMETYX 2020-0 Yes 1{tbl} QD Take [address] [facility] 40 mg Tab 9-17 tablet by [facility] 00:[facility]: mouth Medical 00 daily. [place] CABOMETYX 2020-0 Yes 1{tbl} QD Take [address] [facility] 40 mg Tab 9-17 tablet by [facility] 00:[facility]: mouth Medical 00 daily. [place] CABOMETYX 2020-0 Yes 1{tbl} QD Take [address] [facility] 40 mg Tab 9-17 tablet by [facility] 00:[facility]: mouth Medical 00 daily. [place] CABOMETYX 2020-0 Yes 1{tbl} QD Take [address] [facility] 40 mg Tab 9-17 tablet by [facility] 00:[facility]: mouth Medical 00 daily. [place] CABOMETYX 2020-0 Yes 1{tbl} QD Take [address] [facility] 40 mg Tab 9-17 tablet by [facility] 00:[facility]: mouth Medical 00 daily. [place] CABOMETYX 2020-0 Yes 1{tbl} QD Take [address] [facility] 40 mg Tab 9-17 tablet by [facility] 00:[facility]: mouth Medical 00 daily. [place] CABOMETYX 2020-0 Yes 1{tbl} QD Take [address] [facility] 40 mg Tab 9-17 tablet by [facility] 00:[facility]: mouth Medical 00 daily. [place] Cabozantini 2019-0 Yes DAILY [facility]17 [facility] 40 MG TABS 00:00: of 00 Medicin e Cabozantini 2020-0 Yes DAILY [facility] 9-17 [facility] 40 MG TABS 00:00: of 00 Medicin e lisinopril 2019-0 Yes 40mg Take 40 mg [facility] (PRINIVIL, 8-21 by mouth. [facility] ZESTRIL) 40 14:19: of MG tablet 35 Medicin e amlodipine 2019-0 Yes 10mg Take 10 mg [facility] (NORVASC) 8-21 by mouth [facility] 10 MG 14:19: daily. of tablet 35 Medicin e tramadol 2020-0 Yes 50mg Take 50 mg [facility] (ULTRAM) 50 8-21 by mouth [facility] MG tablet 14:19: every 6 of 35 hours as Medicin needed for e Pain. atorvastati 2019-0 Yes 40mg Take 40 mg [facility] (LIPITOR) 8-21 by mouth [facility] 40 MG 14:19: daily. of tablet 35 Medicin e docusate 2020-0 Yes 100mg Take 100 [facility] sodium 8-21 mg by [facility] (COLACE) 14:19: mouth two of 100 MG 35 times Medicin capsule daily. e Cabozantini 2020-0 2020- No [id number] 40mg Take 40 mg [facility] 8-23 04-21 by mouth [facility] 40 MG TABS [...] tramadol 2020-0 Yes 50mg Take 50 mg [facility] (ULTRAM) 50 7-10 by mouth [facility] MG tablet 15:19: every 6 of 30 hours as Medicin needed for e Pain. atorvastati 2020-0 Yes 40mg Take 40 mg [facility] n (LIPITOR) 7-10 by mouth [facility] e[facility] 40 MG 15:19: daily. of tablet 30 Medicin e docusate 2020-0 Yes 100mg Take 100 [facility] sodium 7-10 mg by [facility] (COLACE) 15:19: mouth two of 100 MG [...] tramadol 2020-0 Yes 50mg Take 50 mg [facility] (ULTRAM) 50 5-01 by mouth [facility] MG tablet 15:05: every 6 of 42 hours as Medicin needed for e Pain. atorvastati 2020-0 Yes 40mg Take 40 mg [facility] n (LIPITOR) 5-01 by mouth [facility] 40 MG 15:05: daily. of tablet 42 Medicin e docusate 2020-0 Yes 100mg Take 100 [facility] sodium 5-01 mg by [facility] (COLACE) 15:05: mouth two of 100 MG [...] tramadol 2020-0 Yes 50mg Take 50 mg [facility] (ULTRAM) 50 3-27 by mouth [facility] MG tablet 14:06: every 6 of 57 hours as Medicin needed for e Pain. atorvastati 2020-0 Yes 40mg Take 40 mg [facility] (LIPITOR) 3-27 by mouth [facility] 40 MG 14:06: daily. of tablet 57 Medicin e docusate 2020-0 Yes 100mg Take 100 [facility] sodium 3-27 mg by [facility] (COLACE) 14:06: mouth two of 100 MG [...] tramadol 2020-0 Yes 50mg Take 50 mg [facility] (ULTRAM) 50 3-06 by mouth [facility] MG tablet 17:15: every 6 of 13 hours as Medicin needed for e Pain. atorvastati 2020-0 Yes 40mg Take 40 mg [facility] (LIPITOR) 3-06 by mouth [facility] 40 MG 17:15: daily. of tablet 13 Medicin e docusate 2020-0 Yes 100mg Take 100 [facility] sodium 3-06 mg by [facility] (COLACE) 17:15: mouth two of 100 MG 13 times Medicin capsule daily. e tramadol 2020-0 Yes 50mg Take 50 mg [facility] (ULTRAM) 50 2-07 by mouth [facility] MG tablet 15:49: every 6 of 29 hours as Medicin needed for e Pain. atorvastati 2020-0 Yes 40mg Take 40 mg [facility] n (LIPITOR) 2-07 by mouth [facility] 40 MG 15:49: daily. of tablet 29 Medicin e docusate 2020-0 Yes 100mg Take 100 [facility] sodium 2-07 mg by [facility] (COLACE) 15:49: mouth two of 100 MG 29 times Medicin capsule daily. e lisinopril 2020-0 Yes 40mg Take 40 mg [facility] (PRINIVIL, 2-07 by mouth. [facility] ZESTRIL) 40 15:49: of MG tablet 29 Medicin e amlodipine 2020-0 Yes 10mg Take 10 mg [facility] (NORVASC) -07 by mouth [facility] 10 MG 15:49: daily. of tablet 29 Medicin e Axitinib 5 2020-0 2020- No [id number] 5mg Take 5 mg [facility] MG TABS 09-09 by mouth [facility] 00:00: 04:59 two times of 00 :00 daily for Medicin 30 days. e Part of cancer treatment regimen Axitinib 5 2020-0 2020- No [id number] 5mg Take 5 mg [facility] TABS 09-09- by [facility] 00:00: 04:59 two times of 00 :00 daily for Medicin 30 days. e Part of cancer treatment regimen lisinopril 2020-0 Yes 40mg Take 40 mg [facility] (PRINIVIL, 09-02 by mouth. [facility] ZESTRIL) 40 18:43: of MG tablet 07 Medicin e amlodipine 2020-0 Yes 10mg Take 10 mg [facility] (NORVASC) - by mouth [facility] 10 MG 18:43: daily. of tablet 07 Medicin e tramadol 2020-0 Yes 50mg Take 50 mg [facility] (ULTRAM) 50 - by mouth [facility] MG tablet 18:43: every 6 of 07 hours as Medicin needed for e Pain. atorvastati 2020-0 Yes 40mg Take 40 mg [facility] n (LIPITOR) - by mouth [facility] 40 MG 18:43: daily. of tablet 07 Medicin e docusate Yes 100mg Take 100 [facility] sodium 1-31 mg by [facility] (COLACE) 18:43: mouth two of 100 MG 07 times Medicin capsule daily. e lisinopril Yes 40mg Take 40 mg [facility] (PRINIVIL, 9-24 by mouth. [facility] ZESTRIL) 40 14:58: of MG tablet 34 Medicin e amlodipine Yes 10mg Take 10 mg [facility] (NORVASC) 9-24 by mouth [facility] 10 MG 14:58: daily. of tablet 34 Medicin e tramadol Yes 50mg Take 50 mg [facility] (ULTRAM) 50 9-24 by mouth [facility] MG tablet 14:58: every 6 of 34 hours as Medicin needed for e Pain. atorvastati Yes 40mg Take 40 mg [facility] n (LIPITOR) 9-24 by mouth [facility] 40 MG 14:58: daily. of tablet 34 Medicin e docusate Yes 100mg Take 100 [facility] sodium 9-24 mg by [facility] (COLACE) 14:58: mouth two of 100 MG 34 times Medicin capsule daily. e megestrol 2019- No [id number] 400mg Take 10 mL [facility] (MEGACE) 04-26 10- by mouth Colleg e suspension 00:00: 04:59 two times o f 00 :00 daily for Medicin 30 days. e SUNItinib 2019- No [id number] 37.5mg 37.5 mg [facility] [place] 37.5 04-26 10-09 daily for Co llege MG CAPS 00:00: 04:59 14 days. of 00 :00 Take daily Medicin for 14 e days and then stop for 7 days. Then repeat ciprofloxac 2018- Yes 500mg Take 1 Tab [facility] (CIPRO) 3-15 by mouth Colle ge 500 MG 00:00: two times of tablet 00 daily. Medicin e ciprofloxac 2018-0 Yes 500mg Take 1 Tab [facility] (CIPRO) 3-15 by mouth [facility]le [facility] 500 MG 00:00: two times of tablet 00 daily. Medicin e ciprofloxac 2018-0 Yes 500mg Take 1 Tab [facility] [...] ciprofloxac 2019-0 Yes 500mg Take 1 Tab [facility] in (CIPRO) 3-15 by mouth Colle ge 500 MG 00:00: two times of tablet 00 daily. Medicin e ciprofloxac 2019-0 Yes 500mg Take 1 Tab [facility] (CIPRO) 3-15 by mouth Colle ge 500 MG 00:00: two times of tablet 00 daily. Medicin e ciprofloxac 2019-0 Yes 500mg Take 1 Tab [facility] in (CIPRO) 3-15 by mouth Colle [...] ciprofloxac 2019-0 Yes 500mg Take 1 Tab [facility] in (CIPRO) 3-15 by mouth Colle ge 500 MG 00:00: two times of tablet 00 daily. Medicin e ciprofloxac 2019-0 Yes 500mg Take 1 Tab [facility] in (CIPRO) 3-15 by mouth Colle ge 500 MG 00:00: two times of tablet 00 daily. Medicin e ciprofloxac 2019-0 Yes 500mg Take 1 Tab [facility] in (CIPRO) 3-15 by mouth Colle ge 500 MG 00:00: two times of tablet 00 daily. Medicin e ciprofloxac 2019-0 Yes 500mg Take 1 Tab [facility] in (CIPRO) 3-15 by mouth Colle ge 500 MG 00:00: two times of tablet 00 daily. Medicin e ciprofloxac 2019-0 Yes 500mg Take 1 Tab [facility] (CIPRO) 3-15 by mouth Colle ge 500 MG 00:00: two times of tablet 00 daily. Medicin e ciprofloxac 2019-0 Yes 500mg Take 1 Tab [facility] in (CIPRO) 3-15 by mouth Colle ge 500 MG 00:00: two times of tablet 00 daily. Medicin e ciprofloxac 2019-0 Yes 500mg Take 1 Tab [facility] in (CIPRO) 3-15 by mouth Colle ge 500 MG 00:00: two times of tablet 00 daily. Medicin e ciprofloxac 2019-0 Yes 500mg Take 1 Tab [facility] in (CIPRO) 3-15 by mouth Colle ge 500 MG 00:00: two times of tablet 00 daily. Medicin e ciprofloxac 2019-0 Yes 500mg Take 1 Tab [facility] in (CIPRO) 3-15 by mouth Colle ge 500 MG 00:00: two times of tablet 00 daily. Medicin e ciprofloxac 2019-0 Yes 500mg Take 1 Tab [facility] in (CIPRO) 3-15 by mouth Colle ge 500 MG 00:00: two times of tablet 00 daily. Medicin e ciprofloxac 2019-0 Yes 500mg Take 1 Tab [facility] (CIPRO) 3-15 by mouth Colle ge 500 MG 00:00: two times of tablet 00 daily. Medicin e ciprofloxac 2019-0 Yes 500mg Take 1 Tab [facility] in (CIPRO) 3-15 by mouth Colle ge 500 MG 00:00: two times of tablet 00 daily. Medicin e ciprofloxac 2019-0 Yes 500mg Take 1 Tab [facility] in (CIPRO) 3-15 by mouth Colle ge 500 MG 00:00: two times of tablet 00 daily. Medicin e ciprofloxac 2019-0 Yes 500mg Take 1 Tab [facility] (CIPRO) 3-15 by mouth Colle ge 500 MG 00:00: two times of tablet 00 daily. Medicin e ciprofloxac 2019-0 Yes 500mg Take 1 Tab [facility] in (CIPRO) 3-15 by mouth Colle ge 500 MG 00:00: two times of tablet 00 daily. Medicin e ciprofloxac 2019-0 Yes 500mg Take 1 Tab [facility] in (CIPRO) 3-15 by mouth Colle ge 500 MG 00:00: two times of tablet 00 daily. Medicin e ciprofloxac 2019-0 Yes 500mg Take 1 Tab [facility] in (CIPRO) 3-15 by mouth Colle ge 500 MG 00:00: two times of tablet 00 daily. Medicin e ciprofloxac 2019-0 Yes 500mg Take 1 Tab [facility] in (CIPRO) 3-15 by mouth Colle ge 500 MG 00:00: two times of tablet 00 daily. Medicin e ciprofloxac 2019-0 Yes 500mg Take 1 Tab [facility] (CIPRO) 3-15 by mouth Colle ge 500 MG 00:00: two times of tablet 00 daily. Medicin e ciprofloxac 2018-2022- No 500mg Take 1 Tab [facility] in (CIPRO) 3-15 04-25 by mouth [facility] 500 MG 00:00: 00:00 two times of tablet 00 :00 daily. Medicin e pioglitazon 2018- 2020- No 1{tbl} Take [address] e-metFORMIN -04-13 tablet by [facility] (ACTOPLUS 00:00: 00:00 mouth Medica l MET) 15-850 00 :00 daily with Ce nter mg per breakfast. tablet pioglitazon 2018- 2020- No 1{tbl} Take [address] e-metFORMIN 10-05 tablet by [facility] (ACTOPLUS 00:00: 00:00 mouth Medica l MET) 15-850 00 :00 daily with Ce nter mg per breakfast. tablet pioglitazon 2018- 2020- No 1{tbl} Take [address] e-metFORMIN 10-05 tablet by [facility] (ACTOPLUS 00:00: 00:00 mouth Medica l MET) 15-850 00 :00 daily with Ce nter mg per breakfast. tablet carvedilol 2017-08 Yes [facility]mg [facility] 2 [facility] 12[facility]5 MG 00:00: (25 mg Medical tablet 00 total) by Center mouth 2 (two) times daily with breakfast and dinner. carvedilol 2017-08 Yes 25[facility] 2 [facility] 00:00: (25 mg Medical tablet 00 total) by [facility] mouth 2 (two) times daily with breakfast and dinner. carvedilol 2017-08 Yes 25mg Take 2 [facility] MG 00:00: (25 mg Medical tablet 00 total) by Center mouth 2 (two) times daily with breakfast and dinner. carvedilol 2017-08 Yes 25mg [facility] 2 [facility] 12[facility] MG 00:00: (25 mg Medical tablet 00 total) by Center mouth 2 (two) times daily with breakfast and dinner. carvedilol 2017-08 Yes 25mg Take 2 [facility] 12[facility] MG 00:00: (25 mg Medical tablet 00 total) by Center mouth 2 (two) times daily with breakfast and dinner. carvedilol 2017-08 Yes 25mg Take 2 [facility] 12[facility]5 MG 00:00: (25 mg Medical tablet 00 total) by Center mouth 2 (two) times daily with breakfast and dinner. carvedilol 2017-08 Yes 25mg Take 2 [facility] 12[facility] MG 00:00: (25 mg Medical tablet 00 total) by Center mouth 2 (two) times daily with breakfast and dinner. carvedilol 2017-08 Yes 25mg Take 2 [facility] 12[facility] MG 00:00: (25 mg Medical tablet 00 total) by Center mouth 2 (two) times daily with breakfast and dinner. carvedilol 2017-08 Yes 25mg Take 2 [facility] 12[facility]5 MG 00:00: (25 mg Medical tablet 00 total) by Center mouth 2 (two) times daily with breakfast and dinner. carvedilol 2017-08 Yes 25mg Take 2 [facility] 12[facility]5 MG 00:00: (25 mg Medical tablet 00 total) by Center mouth 2 (two) times daily with breakfast and dinner. carvedilol 2017-08 Yes 25mg Take 2 [facility] 12[facility]5 MG 00:00: (25 mg Medical tablet 00 total) by Center mouth 2 (two) times daily with breakfast and dinner. carvedilol 2017-08 Yes 25mg Take 2 [facility] 12[facility]5 MG 00:00: (25 mg Medical tablet [...] of 00 daily. Medicin e aspirin EC 2017-08- No 325mg Take 325 B [facility] 325 MG 1-21 08-10 mg by [facility] tablet 00:00: 00:00 mouth of 00 :00 daily. Medicin e aspirin EC 2017-08 No 325mg Take 325 [facility] 325 MG 1-21 08-10 mg [facility] tablet 00:00: 00:00 mouth of 00 :00 daily. Medicin e Sitagliptin 2017-08 Yes 50mg Take 50 mg [facility] 1-20 by mouth. [facility] (JANUVIA) 00:00: of 50 MG TABS 00 Medicin e Sitagliptin 2018-1 Yes 50mg Take 50 mg [facility] Phosphate 1-20 by mouth. [facility] ge (IA) 00:00: of 50 MG TABS 00 Medicin e Sitagliptin 2018-1 Yes 50mg Take 50 mg [facility] 1-20 by mouth. [facility] (AUGUVIA) 00:00: of 50 MG TABS 00 Medicin e Sitagliptin 2018-1 Yes 50mg Take 50 mg [facility] Phosphate 1-20 by mouth. [facility] (AUGUVIA) 00:00: of 50 MG TABS 00 Medicin e Sitagliptin 2018-1 Yes 50mg Take 50 mg [facility] 1-20 by mouth. [facility] (AUGUVIA) 00:00: of 50 MG TABS 00 Medicin e Sitagliptin 2018-1 Yes 50mg Take 50 mg [facility] Phosphate 1-20 by mouth. [facility] (AUGUVIA) 00:00: of 50 MG TABS 00 Medicin e Sitagliptin 2018-1 Yes 50mg Take 50 mg [facility] Phosphate 1-20 by mouth. [facility] (AUGUVIA) 00:00: of 50 MG TABS 00 Medicin e Sitagliptin 2018-1 Yes 50mg Take 50 mg [facility] Phosphate 1-20 by mouth. [facility] (AUGUVIA) 00:00: of 50 MG TABS 00 Medicin e Sitagliptin 2018-1 Yes 50mg Take 50 mg [facility] 1-20 by mouth. [facility] (AUGUVIA) 00:00: of 50 MG TABS 00 Medicin e Sitagliptin 2018-1 Yes 50mg Take 50 mg [facility] 1-20 by mouth. [facility] (AUGUVIA) 00:00: of 50 MG TABS 00 Medicin e Sitagliptin 2018-1 Yes 50mg Take 50 mg [facility] 1-20 by mouth. [facility] (AUGUVIA) 00:00: of 50 MG TABS 00 Medicin e Sitagliptin 2018-1 Yes 50mg Take 50 mg [facility] 1-20 by mouth. [facility] (AUGUVIA) 00:00: of 50 MG TABS 00 Medicin e Sitagliptin 2018-1 Yes 50mg Take 50 mg [facility] 1-20 by mouth. [facility] (AUGUVIA) 00:00: of 50 MG TABS 00 Medicin e Sitagliptin 2018-1 Yes 50mg Take 50 mg [facility] 1-20 by mouth. [facility] (AUGUVIA) 00:00: of 50 MG TABS 00 Medicin e Sitagliptin 2018-1 Yes 50mg Take 50 mg [facility] Phosphate 1-20 by mouth. [facility] ge (AUGUVIA) 00:00: of 50 MG TABS 00 Medicin e Sitagliptin 2018-1 Yes 50mg Take 50 mg [facility] Phosphate 1-20 by mouth. [facility] (AUGUVIA) 00:00: of 50 MG TABS 00 Medicin e Sitagliptin 2018-1 Yes 50mg Take 50 mg [facility] Phosphate 1-20 by mouth. [facility] (AUGUVIA) 00:00: of 50 MG TABS 00 Medicin e Sitagliptin 2018-1 Yes 50mg Take 50 mg [facility] Phosphate 1-20 by mouth. [facility] (AUGUVIA) 00:00: of 50 MG TABS 00 Medicin e Sitagliptin 2018-1 Yes 50mg Take 50 mg [facility] Phosphate 1-20 by mouth. [facility] (AUGUVIA) 00:00: of 50 MG TABS 00 Medicin e Sitagliptin 2018-1 Yes 50mg Take 50 mg [facility] Phosphate 1-20 by mouth. [facility] (AUGUVIA) 00:00: of 50 MG TABS 00 Medicin e Sitagliptin 2018-1 Yes 50mg Take 50 mg [facility] Phosphate 1-20 by mouth. [facility] ge (AUGUVIA) 00:00: of 50 MG TABS 00 Medicin e Sitagliptin 2018-1 Yes 50mg Take 50 mg [facility] Phosphate 1-20 by mouth. [facility] (AUGUVIA) 00:00: of 50 MG TABS 00 Medicin e Sitagliptin 2018-1 Yes 50mg Take 50 mg [facility] 1-20 by mouth. [facility] (AUGUVIA) 00:00: of 50 MG TABS 00 Medicin e Sitagliptin 2018-1 Yes 50mg Take 50 mg [facility] 1-20 by mouth. [facility] (AUGUVIA) 00:00: of 50 MG TABS 00 Medicin e Sitagliptin 2018-1 Yes 50mg Take 50 mg [facility] 1-20 by mouth. [facility] (AUGUVIA) 00:00: of 50 MG TABS 00 Medicin e Sitagliptin 2018-1 Yes 50mg Take 50 mg [facility] Phosphate 1-20 by mouth. [facility]le ge (AUGUVIA) 00:00: of 50 MG TABS 00 Medicin e Sitagliptin 2017-08 Yes 50mg Take 50 mg [facility] 1-20 by mouth. Colle ge () 00:00: of 50 MG TABS 00 Medicin e Sitagliptin 2017-08 Yes 50mg Take 50 mg [facility] Phosphate 1-20 by mouth. Colle ge () 00:00: of 50 MG TABS 00 Medicin e Sitagliptin 2017-08 Yes 50mg Take 50 mg [facility] Phosphate 1-20 by mouth. Colle ge () 00:00: of 50 MG TABS 00 Medicin e Sitagliptin 2017-08 Yes 50mg Take 50 mg [facility] 1-20 by mouth. Colle ge () 00:00: of 50 MG TABS 00 Medicin e Sitagliptin 2017-08 Yes 50mg Take 50 mg [facility] Phosphate 1-20 by mouth. Colle ge () 00:00: of 50 MG TABS 00 Medicin e [facility] [address] 2017-08 Yes 50mg QD Take [address] mg tablet 1-20 by mouth [facility]: daily. [place] [address] 2017-08 Yes 50mg QD Take [address] mg tablet 1-20 by mouth [facility] 00:[facility]: daily. [place] [address] 2017-08 Yes 50mg QD Take [address] mg tablet 1-20 by mouth [facility] 00:[facility]: daily. [place] [address] 2017-08 Yes 50mg QD Take [address] mg tablet 1-20 by mouth [facility] 00:[facility]: daily. [place] [address] 2017-08 Yes 50mg QD Take [address] mg tablet 1-20 by mouth [facility] 00:[facility]: daily. [place] [address] 2017-08 Yes 50mg QD Take [address] mg tablet 1-20 by mouth [facility] 00:[facility]: daily. [place] [address] 2017-08 Yes 50mg QD Take [address] mg tablet 1-20 by mouth [facility] 00:00: daily. [place] [address] 2017-08 Yes 50mg QD Take [address] mg tablet 1-20 by mouth [facility] 00:[facility]: daily. [place] [address] 2018-1 Yes 50mg QD Take [address] mg tablet 1-20 by mouth [facility] 00:[facility]: daily. [address] 50 2017-1 Yes 50mg QD Take [address] mg tablet 1-20 by mouth [facility] 00:[facility]: daily. [address] 50 2017-1 Yes 50mg QD Take [address] mg tablet 1-20 by mouth [facility] 00:[facility]: daily. [address] 50 2017- Yes 50mg QD Take [address] mg tablet 1-20 by mouth [facility] 00:[facility]: daily. [address] pantoprazol 2018-0 Yes 40mg Take 40 mg [facility] 9-19 by mouth. [facility] (PROTONIX) 00:00: of 40 MG 00 Medicin tablet e pantoprazol 2018-0 Yes 40mg Take 40 mg [facility] 9-19 by mouth. [facility] (PROTONIX) 00:00: of 40 MG 00 Medicin tablet e pantoprazol 2018-0 Yes 40mg Take 40 mg [facility] e 9-19 by mouth. [facility] (PROTONIX) 00:00: of 40 MG 00 Medicin tablet e pantoprazol 2018-0 Yes 40mg Take 40 mg [facility] e 9-19 by mouth. [facility] (PROTONIX) 00:00: of 40 MG 00 Medicin tablet e pantoprazol 2018-0 Yes 40mg Take 40 mg [facility] e 9-19 by mouth. [facility] (PROTONIX) 00:00: of 40 MG 00 Medicin tablet e pantoprazol 2018-0 Yes 40mg Take 40 mg [facility] 9-19 by mouth. [facility] (PROTONIX) 00:00: of 40 MG 00 Medicin tablet e pantoprazol 2018-0 Yes 40mg Take 40 mg [facility] e 9-19 by mouth. [facility] (PROTONIX) 00:00: of 40 MG 00 Medicin tablet e pantoprazol 2018-0 Yes 40mg Take 40 mg [facility] 9-19 by mouth. [facility] (PROTONIX) 00:00: of 40 MG 00 Medicin tablet e pantoprazol 2018-0 Yes 40mg Take 40 mg [facility] 9-19 by mouth. [facility] (PROTONIX) 00:00: of 40 MG 00 Medicin tablet e pantoprazol 2018-0 Yes 40mg Take 40 mg [facility] e 9-19 by mouth. [facility] (PROTONIX) 00:00: of 40 MG 00 Medicin tablet e pantoprazol 2018-0 Yes 40mg Take 40 mg [facility] 9-19 by mouth. [facility] (PROTONIX) 00:00: of 40 MG 00 Medicin tablet e pantoprazol 2018-0 Yes 40mg Take 40 mg [facility] 9-19 by mouth. [facility] (PROTONIX) 00:00: of 40 MG 00 Medicin tablet e pantoprazol 2018-0 Yes 40mg Take 40 mg [facility] 9-19 by mouth. [facility] (PROTONIX) 00:00: of 40 MG 00 Medicin tablet e pantoprazol 2018-0 Yes 40mg Take 40 mg [facility] e 9-19 by mouth. [facility] (PROTONIX) 00:00: of 40 MG 00 Medicin tablet e pantoprazol 2018-0 Yes 40mg Take 40 mg [facility] 9-19 by mouth. [facility] (PROTONIX) 00:00: of 40 MG 00 Medicin tablet e pantoprazol 2018-0 Yes 40mg Take 40 mg [facility] e 9-19 by mouth. [facility] (PROTONIX) 00:00: of 40 MG 00 Medicin tablet e pantoprazol 2018-0 Yes 40mg Take 40 mg [facility] 9-19 by mouth. [facility] (PROTONIX) 00:00: of 40 MG 00 Medicin tablet e pantoprazol 2018-0 Yes 40mg Take 40 mg [facility] 9-19 by mouth. [facility] (PROTONIX) 00:00: of 40 MG 00 Medicin tablet e pantoprazol 2018-0 Yes 40mg Take 40 mg [facility] e 9-19 by mouth. [facility] (PROTONIX) 00:00: of 40 MG 00 Medicin tablet e pantoprazol 2018-0 Yes 40mg Take 40 mg [facility] e 9-19 by mouth. [facility] (PROTONIX) 00:00: of 40 MG 00 Medicin tablet e pantoprazol 2018-0 Yes 40mg Take 40 mg [facility] e 9-19 by mouth. [facility] (PROTONIX) 00:00: of 40 MG 00 Medicin tablet e pantoprazol 2018-0 Yes 40mg Take 40 mg [facility] 9-19 by mouth. [facility] (PROTONIX) 00:00: of 40 MG 00 Medicin tablet e pantoprazol 2018-0 Yes 40mg Take 40 mg [facility] 9-19 by mouth. [facility] (PROTONIX) 00:00: of 40 MG 00 Medicin tablet e pantoprazol 2018-0 Yes 40mg Take 40 mg [facility] e 9-19 by mouth. [facility] (PROTONIX) 00:00: of 40 MG 00 Medicin tablet e pantoprazol 2018-0 Yes 40mg Take 40 mg [facility] 9-19 by mouth. [facility] (PROTONIX) 00:00: of 40 MG 00 Medicin tablet e pantoprazol 2018-0 Yes 40mg Take 40 mg [facility] 9-19 by mouth. [facility] (PROTONIX) 00:00: of 40 MG 00 Medicin tablet e pantoprazol 2018-0 Yes 40mg Take 40 mg [facility] e 9-19 by mouth. [facility] (PROTONIX) 00:00: of 40 MG 00 Medicin tablet e pantoprazol 2018-0 Yes 40mg Take 40 mg [facility] 9-19 by mouth. [facility] (PROTONIX) 00:00: of 40 MG 00 Medicin tablet e pantoprazol 2018-0 Yes 40mg Take 40 mg [facility] 9-19 by mouth. [facility] (PROTONIX) 00:00: of 40 MG 00 Medicin tablet e pantoprazol 2018-0 Yes 40mg Take 40 mg [facility] 9-19 by mouth. [facility] (PROTONIX) 00:00: of 40 MG 00 Medicin tablet e pantoprazol 2018-0 Yes 40mg Take 40 mg [facility] e 9-19 by mouth. [facility] (PROTONIX) 00:00: of 40 MG 00 Medicin tablet e pantoprazol 2018-0 Yes 40mg QD Take [address] [facility] 9-19 by mouth [facility] ([facility]) 00:00: daily. Medic al 40 MG 00 Center tablet pantoprazol 2018-0 Yes 40mg QD Take [address] [facility] 9-19 by mouth [facility] ([facility]ONIX) 00:00: daily. Medic al 40 MG 00 Center tablet pantoprazol 2018-0 Yes 40mg QD Take [address] [facility] 9-19 by mouth [facility] ([facility]ONIX) 00:00: daily. Medic al 40 MG 00 Center tablet pantoprazol 2018-0 Yes 40mg QD Take [address] [facility] 9-19 by mouth [facility] ([facility]ONIX) 00:00: daily. Medic al 40 MG 00 Center tablet pantoprazol 2018-0 Yes 40mg QD Take [address] [facility] 9-19 by mouth [facility] ([facility]ONIX) 00:00: daily. Medic al 40 MG 00 Center tablet pantoprazol 2018-0 Yes 40mg QD Take [address] [facility] [facility] 9-19 by mouth [facility] ([facility]ONIX) 00:00: daily. Medic al 40 MG 00 Center tablet pantoprazol 2018-0 Yes 40mg QD Take [address] [facility] 9-19 by mouth [facility] ([facility]ONIX) 00:00: daily. Medic al 40 MG 00 Center tablet pantoprazol 2018-0 Yes 40mg QD Take [address] [facility] 9-19 by mouth [facility] ([facility]ONIX) 00:00: daily. Medic al 40 MG 00 Center tablet pantoprazol 2018-0 Yes 40mg QD Take [address] [facility] 9-19 by mouth [facility] ([facility]ONIX) 00:00: daily. Medic al 40 MG 00 Center tablet pantoprazol 2018-0 Yes 40mg QD Take [address] [facility] 9-19 by mouth [facility] ([facility]ONIX) 00:00: daily. Medic al 40 MG 00 Center tablet pantoprazol 2018-0 Yes 40mg QD Take [address] [facility] 9-19 by mouth [facility] ([facility]ON[facility]) 00:00: daily. Medic al 40 MG 00 Center tablet pantoprazol 2018-0 Yes 40mg QD Take [address] [facility] 9-19 by mouth [facility] ([facility]ON[facility]) 00:00: daily. Medic al 40 MG 00 Center tablet amLODIPine 2018-0 Yes 10mg QD Take [address] (NORVASC) 9-06 by mouth [facility] 10 MG 00:00: daily. Medical tablet 00 Center amLODIPine 2018-0 Yes 10mg QD Take [address] (NORVASC) 9-06 by mouth [facility] 10 MG 00:00: daily. Medical tablet 00 Center amLODIPine 2018-0 Yes 10mg QD Take [address] (NORVASC) 9-06 by mouth [facility] 10 MG 00:00: daily. Medical tablet 00 Center amLODIPine 2018-0 Yes 10mg QD Take [address] (NORVASC) 9-06 by mouth [facility] 10 MG 00:00: daily. Medical tablet 00 Center amLODIPine 2018-0 Yes 10mg QD Take [address] (NORVASC) 9-06 by mouth [facility] 10 MG 00:00: daily. Medical tablet 00 Center amLODIPine 2018-0 Yes 10mg QD Take [address] (NORVASC) 9-06 by mouth [facility] 10 MG 00:00: daily. Medical tablet 00 [place] amLODIPine 0 Yes 10mg QD Take [address] (NORVASC) 9-06 by mouth [facility] 10 MG 00:00: daily. Medical tablet [address] [place] [address] amLODIPine 0 Yes 10mg QD Take [address] (NORVASC) 9-06 by mouth [facility] 10 MG 00:00: daily. Medical tablet [address] [place] [address] amLODIPine Yes 10mg QD Take [address] (NORVASC) 9-06 by mouth [facility] 10 MG 00:00: daily. Medical tablet [address] [place] [address] amLODIPine Yes 10mg QD Take [address] (NORVASC) 9-06 by mouth [facility] 10 MG 00:00: daily. Medical tablet [address] [place] [address] amLODIPine Yes 10mg QD Take [address] (NORVASC) 9-06 by mouth [facility] 10 MG 00:00: daily. Medical tablet [address] [place] [address] amLODIPine Yes 10mg QD Take [address] (NORVASC) 9-06 by mouth [facility] 10 MG 00:00: daily. Medical tablet [address] [place] [address] Immunizations Ordered Immunization Filled Immunization Date Status Commen ts Source Name Name Covid-19 Vaccine 2020-11-[address] [facility] (Pf) 00:00:00 [facility] ([employer]le[employer]) Covid-19 Vaccine 2020-11-[address] [facility] Mrna (Pf) 00:00:00 [facility] ([employer]biontFlextrip) Covid-19 Vaccine 2020-11-[address] [facility] Mrna (Pf) 00:00:00 [facility] ([employer]) Covid-19 Vaccine 2020-11-[address] [facility] MRNA (PF) 12yr+ 00:00:00 [facility] (Pfizer/BioNTech)(IM M601) Covid-19 Vaccine 2020-11-[address] [facility] MRNA (PF) 12yr+ 00:00:00 [facility] C enter (Pfizer/BioNTech)(IM M601) Covid-19 Vaccine 2020-11-[address] [facility] MRNA (PF) 12yr+ 00:00:00 Medical C enter (Pfizer/BioNTech)(IM M601) Covid-19 Vaccine 2020-11-[address] [facility] MRNA (PF) 12yr+ 00:00:00 Medical C enter (Pfizer/BioNTech)(IM M601) Covid-19 Vaccine 2020-11-[address] [facility] MRNA (PF) 12yr+ 00:00:00 Medical C enter (Pfizer/BioNTech)(IM M601) Covid-19 Vaccine 2020-11-[address] [facility] MRNA (PF) 12yr+ 00:00:00 Medical C enter (Pfizer/BioNTech)(IM M601) Covid-19 Vaccine 2020-11-[address] [facility] MRNA (PF) 12yr+ 00:00:00 Medical C enter (Pfizer/BioNTech)(IM M601) Covid-19 Vaccine 2020-11-[address] [facility] MRNA (PF) 12yr+ 00:00:00 Medical C enter (Pfizer/BioNTech)(IM M601) Covid-19 Vaccine 2020-11-[address] [facility] MRNA (PF) 12yr+ 00:00:00 Medical C enter (Pfizer/BioNTech)(IM M601) Covid-19 Vaccine 2020-10-[address] [facility] (Pfizer/biontech) Covid-19 Vaccine 2020-10-[address] [facility] (Pf) 00:00:00 [facility] (Pfizer/biontech) Covid-19 Vaccine 2020-10-[address] [facility] (Pf) 00:00:00 [facility] (Pfizer/biontech) Covid-19 Vaccine 2020-10-[address] [facility] MRNA (PF) 12yr+ 00:00:00 Medical C enter (Pfizer/BioNTech)(IM M601) Covid-19 Vaccine 2020-10-[address] [facility] MRNA (PF) 12yr+ 00:00:00 Medical C enter (Pfizer/BioNTech)(IM M601) Covid-19 Vaccine 2020-10-[address] [facility] MRNA (PF) 12yr+ 00:00:00 Medical C enter (Pfizer/BioNTech)(IM M601) Covid-19 Vaccine 2020-10-[address] [facility] MRNA (PF) 12yr+ 00:00:00 Medical C enter (Pfizer/BioNTech)(IM M601) Covid-19 Vaccine 2020-10-[address] [facility] MRNA (PF) 12yr+ 00:00:00 Medical C enter (Pfizer/BioNTech)(IM M601) Covid-19 Vaccine 2020-10-[address] [facility] MRNA (PF) 12yr+ 00:00:00 Medical C enter (Pfizer/BioNTech)(IM M601) Covid-19 Vaccine 2020-10-[address] [facility] MRNA (PF) 12yr+ 00:00:00 Medical C enter (Pfizer/BioNTech)(IM M601) Covid-19 Vaccine 2020-10-[address] [facility] MRNA (PF) 12yr+ 00:00:00 Medical C enter (Pfizer/BioNTech)(IM M601) Covid-19 Vaccine 2020-10-[address] [facility] MRNA (PF) 12yr+ 00:00:00 Medical C enter (Pfizer/BioNTech)(IM M601) Vital Signs Vital Name Observation Time Observation Value Comments Source Systolic blood 2022-11-25 126 mm[Hg] [facility] pressure 16:49:00 of Medicine Diastolic blood 2022-11-25 81 mm[Hg] [facility] pressure 16:49:00 of Medicine Heart rate 2022-11-25 99 /min [facility] 16:49:00 of Medicine Respiratory rate 2022-11-25 20 /min [facility] ege 16:49:00 of Medicine Body height 2022-11-25 172.7 cm [facility] 16:49:00 of Medicine Systolic blood 2022-09-12 128 mm[Hg] [facility] pressure 20:37:00 of Medicine Diastolic blood 2022-09-12 83 mm[Hg] [facility] pressure 20:37:00 of Medicine Heart rate 2022-09-12 104 /min [facility] 20:37:00 of Medicine Body height 2022-09-12 172.7 cm [facility] 20:37:00 of Medicine Systolic blood 2022-07-25 139 mm[Hg] [facility] pressure 20:22:00 of Medicine Diastolic blood 2022-07-25 74 mm[Hg] [facility] pressure 20:22:00 of Medicine Heart rate 2022-07-25 107 /min [facility] 20:22:00 of Medicine Body temperature 2022-07-25 36.83 [facility] ege 20:22:00 of Medicine Body height 2022-07-25 172.7 cm [facility] 20:22:00 of Medicine Body height 2022-07-15 172.7 cm [facility] 17:35:00 of Medicine Body weight 2022-07-15 99.791 kg [facility] 17:35:00 of Medicine BMI 2022-07-15 33.45 kg/m2 [facility] 17:35:00 of Medicine Systolic blood 2022-06-10 137 mm[Hg] [facility] pressure 17:16:00 of Medicine Diastolic blood 2022-06-10 82 mm[Hg] [facility] pressure 17:16:00 of Medicine Heart rate 2022-06-10 74 /min [facility] 17:16:00 of Medicine Body temperature 2022-06-10 36.67 [facility] 17:16:00 of Medicine Body height 2022-06-10 172.7 cm [facility] 17:16:00 of Medicine Systolic blood 2022-05-27 125 mm[Hg] [facility] 20:34:00 [facility] Diastolic blood 2022-05-27 78 mm[Hg] [facility] pressure 20:34:00 [facility] Heart rate 2022-05-27 101 /min [facility] 20:34:00 [facility] Body temperature 2022-05-27 37 [facility] 20:34:00 [facility] Respiratory rate 2022-05-27 18 /min [facility] 20:34:00 [facility] Oxygen saturation 2022-05-27 99 /min [facility] Arterial blood 20:34:00 [facility] by Pulse oximetry [place] Body height 2022-05-24 172.7 cm [facility] 08:04:00 [facility] Body weight 2022-05-24 82 kg [facility] 08:04:00 [facility] BMI 2022-05-24 27.49 kg/m2 [facility] 08:04:00 [facility] Systolic blood 2022-05-23 127 mm[Hg] [facility] of pressure 18:00:00 [facility] Diastolic blood 2022-05-23 89 mm[Hg] [facility] f pressure 18:00:00 [facility] Heart rate 2022-05-23 155 /min [facility] 18:00:00 [facility] Body temperature 2022-05-[address] [facility] 18:00:00 [facility] Respiratory rate 2022-05-23 16 /min [facility] 18:00:00 [facility] Oxygen saturation 2022-05-23 98 /min [facility] in Arterial blood 18:00:00 [facility] juliet by Pulse oximetry Branch Body height 2022-05-21 172.7 cm [facility] 17:02:00 of Medicine Body weight 2022-05-21 104.327 kg Pt has not [facility] 17:02:00 weighted himself of Medicine in 6 months BMI 2022-05-21 34.97 kg/m2 [facility] 17:02:00 of Medicine Systolic blood 2022-05-16 94 mm[Hg] [facility] pressure 17:31:00 [facility] Diastolic blood 2022-05-16 63 mm[Hg] [facility] o f pressure 17:31:00 [facility] Heart rate 2022-05-16 75 /min [facility] 17:31:00 [facility] Body temperature 2022-05-16 36.56 [facility] 17:31:00 [facility] Respiratory rate 2022-05-16 14 /min [facility] 17:31:00 [facility] Oxygen saturation 2022-05-16 100 /min [facility] in Arterial blood 17:31:00 [facility] by Pulse oximetry Branch Body weight 2022-05-15 77.6 kg [facility] 15:16:00 [facility] Systolic blood 2022-03-12 133 mm[Hg] [facility] pressure 14:23:00 of Medicine Diastolic blood 2022-03-12 82 mm[Hg] [facility] pressure 14:23:00 of Medicine Heart rate 2022-03-12 68 /min [facility] 14:23:00 of Medicine Respiratory rate 2022-03-12 16 /min [facility] 14:23:00 of Medicine Body height 2022-03-12 172.7 cm [facility] 14:23:00 of Medicine Body weight 2022-03-12 104.327 kg [facility] 14:23:00 of Medicine BMI 2022-03-12 34.97 kg/m2 [facility] 14:23:00 of Medicine Oxygen saturation 2022-03-12 94 /min [facility] lege in Arterial blood 14:23:00 of Medicin e by Pulse oximetry Systolic blood 2021-12-27 113 mm[Hg] [facility] pressure 16:48:00 of Medicine Diastolic blood 2021-12-27 79 mm[Hg] [facility] pressure 16:48:00 of Medicine Heart rate 2021-12-27 70 /min [facility] 16:48:00 of Medicine Body temperature 2021-12-27 36.44 [facility] 16:48:00 of Medicine Body height 2021-12-27 172.7 cm [facility] 16:48:00 of Medicine Systolic blood 2021-11-22 126 mm[Hg] [facility] pressure 13:57:00 of Medicine Diastolic blood 2021-11-22 76 mm[Hg] [facility] pressure 13:57:00 of Medicine Heart rate 2021-11-22 73 /min [facility] 13:57:00 of Medicine Body temperature 2021-11-22 36.83 [facility] 13:57:00 of Medicine Body height 2021-11-22 172.7 cm [facility] 13:57:00 of Medicine Systolic blood 2021-11-01 113 mm[Hg] [facility] pressure 13:40:00 of Medicine Diastolic blood 2021-11-01 71 mm[Hg] [facility] pressure 13:40:00 of Medicine Heart rate 2021-11-01 68 /min [facility] 13:40:00 of Medicine Body temperature 2021-11-01 36.61 [facility] 13:40:00 of Medicine Systolic blood 2021-07-19 147 mm[Hg] [facility] pressure 16:33:00 of Medicine Diastolic blood 2021-07-19 92 mm[Hg] [facility] pressure 16:33:00 of Medicine Heart rate 2021-07-19 96 /min [facility] 16:33:00 of Medicine Body temperature 2021-07-19 36.44 [facility] 16:33:00 of Medicine Systolic blood 2021-05-24 145 mm[Hg] [facility] [employer] [facility] pressure 18:02:00 of Medicine Diastolic blood 2021-05-24 85 mm[Hg] [facility] pressure 18:02:00 of Medicine Heart rate 2021-05-24 69 /min [facility] 18:02:00 of Medicine Body temperature 2021-05-24 36.83 [facility] 18:02:00 of Medicine Body height 2021-05-24 172.7 cm [facility] 18:02:00 of Medicine Systolic blood 2021-04-25 144 mm[Hg] [employer] pressure 15:59:00 of Medicine Diastolic blood 2021-04-25 91 mm[Hg] [facility] [employer] [employer] pressure 15:59:00 of Medicine Heart rate 2021-04-25 81 /min [facility] 15:59:00 of Medicine Systolic blood 2021-03-26 106 mm[Hg] [facility] [employer] pressure 16:31:00 of Medicine Diastolic blood 2021-03-26 74 mm[Hg] [employer] [facility] 16:31:00 of Medicine Heart rate 2021-03-26 79 /min [facility] 16:31:00 of Medicine Body temperature 2021-03-26 37.11 [facility] 16:31:00 of Medicine Body height 2021-03-26 172.7 cm [facility] 16:31:00 of Medicine Systolic blood 2021-03-26 106 mm[Hg] [facility] [employer] [facility] pressure 16:31:00 of Medicine Diastolic blood 2021-03-26 74 mm[Hg] [employer] [facility] 16:31:00 of Medicine Heart rate 2021-03-26 79 /min [facility] 16:31:00 of Medicine Body temperature 2021-03-26 37.11 [facility] 16:31:00 of Medicine Body height 2021-03-26 172.7 cm [facility] 16:31:00 of Medicine Systolic blood 2021-01-22 127 mm[Hg] [employer] pressure 16:47:00 of Medicine Diastolic blood 2021-01-22 74 mm[Hg] [facility] [employer] pressure 16:47:00 of Medicine Heart rate 2021-01-22 68 /min [facility] 16:47:00 of Medicine Body temperature 2021-01-22 36.83 [facility] 16:47:00 of Medicine Body height 2021-01-22 172.7 cm [facility] 16:47:00 of Medicine Systolic blood 2021-01-22 127 mm[Hg] [facility] [employer] pressure 16:47:00 of Medicine Diastolic blood 2021-01-22 74 mm[Hg] [facility] [employer] pressure 16:47:00 of Medicine Heart rate 2021-01-22 68 /min [facility] 16:47:00 of Medicine Body temperature 2021-01-22 36.83 [facility] 16:47:00 of Medicine Body height 2021-01-22 172.7 cm [facility] 16:47:00 of Medicine Systolic blood 2020-11-27 125 mm[Hg] [facility] [employer] pressure 15:13:00 of Medicine Diastolic blood 2020-11-27 83 mm[Hg] [facility] [employer] pressure 15:13:00 of Medicine Heart rate 2020-11-27 70 /min [facility] 15:13:00 of Medicine Body temperature 2020-11-27 36.44 [facility] 15:13:00 of Medicine Body height 2020-11-27 172.7 cm [facility] 15:13:00 of Medicine Systolic blood 2020-11-27 125 mm[Hg] [employer] pressure 15:13:00 of Medicine Diastolic blood 2020-11-27 83 mm[Hg] [employer] [facility] 15:13:00 of Medicine Heart rate 2020-11-27 70 /min [facility] 15:13:00 of Medicine Body temperature 2020-11-27 36.44 [facility] 15:13:00 of Medicine Body height 2020-11-27 172.7 cm [facility] 15:13:00 of Medicine Systolic blood 2020-10-02 131 mm[Hg] [facility] [employer] [facility] pressure 15:57:00 of Medicine Diastolic blood 2020-10-02 89 mm[Hg] [employer] [facility] 15:57:00 of Medicine Heart rate 2020-10-02 82 /min [facility] 15:57:00 of Medicine Body temperature 2020-10-02 36.39 [facility] 15:57:00 of Medicine Body height 2020-10-02 172.7 cm [facility] 15:57:00 of Medicine Body weight 2020-10-02 104.327 kg [facility] 15:57:00 of Medicine BMI 2020-10-02 34.97 kg/m2 [facility] 15:57:00 of Medicine Systolic blood 2020-10-02 131 mm[Hg] [employer] [facility] 15:57:00 of Medicine Diastolic blood 2020-10-02 89 mm[Hg] [facility] [employer] pressure 15:57:00 of Medicine Heart rate 2020-10-02 82 /min [facility] 15:57:00 of Medicine Body temperature 2020-10-02 36.39 [facility] 15:57:00 of Medicine Body height 2020-10-02 172.7 cm [facility] 15:57:00 of Medicine Body weight 2020-10-02 104.327 kg [facility] 15:57:00 of Medicine BMI 2020-10-02 34.97 kg/m2 [facility] 15:57:00 of Medicine Systolic blood 2020-07-24 125 mm[Hg] [employer] [facility] 15:47:00 of Medicine Diastolic blood 2020-07-24 78 mm[Hg] [facility] [employer] pressure 15:47:00 of Medicine Heart rate 2020-07-24 75 /min [facility] 15:47:00 of Medicine Body temperature 2020-07-24 36.89 [facility] 15:47:00 of Medicine Body height 2020-07-24 172.7 cm [facility] 15:47:00 of Medicine Systolic blood 2020-07-24 125 mm[Hg] [facility] [employer] [facility] pressure 15:47:00 of Medicine Diastolic blood 2020-07-24 78 mm[Hg] [employer] [facility] 15:47:00 of Medicine Heart rate 2020-07-24 75 /min [facility] 15:47:00 of Medicine Body temperature 2020-07-24 36.89 [facility] 15:47:00 of Medicine Body height 2020-07-24 172.7 cm [facility] 15:47:00 of Medicine Systolic blood 2020-05-25 119 mm[Hg] [facility] [employer] [facility] pressure 17:23:00 of Medicine Diastolic blood 2020-05-25 74 mm[Hg] [employer] [employer] [facility] 17:23:00 of Medicine Heart rate 2020-05-25 64 /min [facility] 17:23:00 of Medicine Body temperature 2020-05-25 36.83 [facility] 17:23:00 of Medicine Body height 2020-05-25 172.7 cm [facility] 17:23:00 of Medicine Systolic blood 2020-05-25 119 mm[Hg] [facility] [employer] [facility] pressure 17:23:00 of Medicine Diastolic blood 2020-05-25 74 mm[Hg] [facility] pressure 17:23:00 of Medicine Heart rate 2020-05-25 64 /min [facility] 17:23:00 of Medicine Body temperature 2020-05-25 36.83 [facility] 17:23:00 of Medicine Body height 2020-05-25 172.7 cm [facility] 17:23:00 of Medicine HEIGHT 2020-05-09 172.7 cm 00:00:00 WEIGHT 2020-05-09 95.482 kg 00:00:00 HEIGHT 2020-05-09 172.7 cm 00:00:00 WEIGHT 2020-05-09 95.482 kg 00:00:00 Systolic blood 2020-04-27 103 mm[Hg] [facility] [employer] [facility] pressure 14:59:00 of Medicine Diastolic blood 2020-04-27 53 mm[Hg] [facility] [employer] pressure 14:59:00 of Medicine Heart rate 2020-04-27 74 /min [facility] 14:59:00 of Medicine Body temperature 2020-04-27 36.83 [facility] 14:59:00 of Medicine Body height 2020-04-27 172.7 cm [facility] 14:59:00 of Medicine Systolic blood 2020-04-27 103 mm[Hg] [facility] [employer] [facility] pressure 14:59:00 of Medicine Diastolic blood 2020-04-27 53 mm[Hg] [facility] [employer] pressure 14:59:00 of Medicine Heart rate 2020-04-27 74 /min [facility] 14:59:00 of Medicine Body temperature 2020-04-27 36.83 [facility] 14:59:00 of Medicine Body height 2020-04-27 172.7 cm [facility] 14:59:00 of Medicine HEIGHT 2020-04-20 172.7 cm 00:00:00 WEIGHT 2020-04-20 104.327 kg 00:00:00 HEIGHT 2020-04-20 172.7 cm 00:00:00 WEIGHT 2020-04-20 104.327 kg 00:00:00 Systolic blood 2020-03-23 133 mm[Hg] [facility] pressure 14:18:00 of Medicine Diastolic blood 2020-03-23 87 mm[Hg] [facility] pressure 14:18:00 of Medicine Heart rate 2020-03-23 81 /min [facility] 14:18:00 of Medicine Body temperature 2020-03-23 36.89 [facility] 14:18:00 of Medicine Body height 2020-03-23 172.7 cm [facility] 14:18:00 of Medicine Systolic blood 2020-03-23 133 mm[Hg] [employer] [facility] 14:18:00 of Medicine Diastolic blood 2020-03-23 87 mm[Hg] [facility] pressure 14:18:00 of Medicine Heart rate 2020-03-23 81 /min [facility] 14:18:00 of Medicine Body temperature 2020-03-23 36.89 [facility] 14:18:00 of Medicine Body height 2020-03-23 172.7 cm [facility] 14:18:00 of Medicine Systolic blood 2020-02-10 124 mm[Hg] [facility] pressure 15:06:00 of Medicine Diastolic blood 2020-02-10 85 mm[Hg] [facility] [employer] pressure 15:06:00 of Medicine Heart rate 2020-02-10 69 /min [facility] 15:06:00 of Medicine Body temperature 2020-02-10 36.72 [facility] 15:06:00 of Medicine Body height 2020-02-10 172.7 cm [facility] 15:06:00 of Medicine Systolic blood 2020-02-10 124 mm[Hg] [employer] [facility] 15:06:00 of Medicine Diastolic blood 2020-02-10 85 mm[Hg] [employer] [facility] 15:06:00 of Medicine Heart rate 2020-02-10 69 /min [facility] 15:06:00 of Medicine Body temperature 2020-02-10 36.72 [facility] 15:06:00 of Medicine Body height 2020-02-10 172.7 cm [facility] 15:06:00 of Medicine Systolic blood 2019-12-02 125 mm[Hg] [employer] [facility] 14:56:00 of Medicine Diastolic blood 2019-12-02 85 mm[Hg] [facility] [employer] pressure 14:56:00 of Medicine Heart rate 2019-12-02 72 /min [facility] 14:56:00 of Medicine Body temperature 2019-12-02 36.83 [facility] 14:56:00 of Medicine Body height 2019-12-02 172.7 cm [facility] 14:56:00 of Medicine Systolic blood 2019-12-02 125 mm[Hg] [employer] [facility] 14:56:00 of Medicine Diastolic blood 2019-12-02 85 mm[Hg] [employer] [facility] 14:56:00 of Medicine Heart rate 2019-12-02 72 /min [facility] 14:56:00 of Medicine Body temperature 2019-12-02 36.83 [facility] 14:56:00 of Medicine Body height 2019-12-02 172.7 cm [facility] 14:56:00 of Medicine Systolic blood 2019-10-28 128 mm[Hg] [employer] [facility] 14:04:00 of Medicine Diastolic blood 2019-10-28 82 mm[Hg] [employer] [facility] 14:04:00 of Medicine Heart rate 2019-10-28 82 /min [facility] 14:04:00 of Medicine Body temperature 2019-10-28 36.67 [facility] 14:04:00 of Medicine Body height 2019-10-28 172.7 cm [facility] 14:04:00 of Medicine Systolic blood 2019-10-28 128 mm[Hg] [employer] [facility] 14:04:00 of Medicine Diastolic blood 2019-10-28 82 mm[Hg] [employer] [facility] 14:04:00 of Medicine Heart rate 2019-10-28 82 /min [facility] 14:04:00 of Medicine Body temperature 2019-10-28 36.67 [facility] 14:04:00 of Medicine Body height 2019-10-28 172.7 cm [facility] 14:04:00 of Medicine Systolic blood 2019-10-07 124 mm[Hg] [facility] pressure 17:12:00 of Medicine Diastolic blood 2019-10-07 87 mm[Hg] [facility] pressure 17:12:00 of Medicine Heart rate 2019-10-07 87 /min [facility] 17:12:00 of Medicine Body temperature 2019-10-07 36.72 [facility] 17:12:00 of Medicine Body height 2019-10-07 172.7 cm [facility] 17:12:00 of Medicine Systolic blood 2019-10-07 124 mm[Hg] [facility] pressure 17:12:00 of Medicine Diastolic blood 2019-10-07 87 mm[Hg] [facility] pressure 17:12:00 of Medicine Heart rate 2019-10-07 87 /min [facility] 17:12:00 of Medicine Body temperature 2019-10-07 36.72 [facility] 17:12:00 of Medicine Body height 2019-10-07 172.7 cm [facility] 17:12:00 of Medicine Systolic blood 2019-09-09 126 mm[Hg] [facility] pressure 15:46:00 of Medicine Diastolic blood 2019-09-09 84 mm[Hg] [facility] pressure 15:46:00 of Medicine Heart rate 2019-09-09 91 /min [facility] 15:46:00 of Medicine Body temperature 2019-09-09 36.94 [facility] 15:46:00 of Medicine Body height 2019-09-09 172.7 cm [facility] 15:46:00 of Medicine Body weight 2019-09-09 99.791 kg [facility] 15:46:00 of Medicine BMI 2019-09-09 33.45 kg/m2 [facility] 15:46:00 of Medicine Systolic blood 2019-09-09 126 mm[Hg] [facility] pressure 15:46:00 of Medicine Diastolic blood 2019-09-09 84 mm[Hg] [employer] [employer] [facility] 15:46:00 of Medicine Heart rate 2019-09-09 91 /min [facility] 15:46:00 of Medicine Body temperature 2019-09-09 36.94 [facility] 15:46:00 of Medicine Body height 2019-09-09 172.7 cm [facility] 15:46:00 of Medicine Body weight 2019-09-09 99.791 kg [facility] 15:46:00 of Medicine BMI 2019-09-09 33.45 kg/m2 [facility] 15:46:00 of Medicine Systolic blood 2019-09-02 129 mm[Hg] [facility] pressure 18:36:00 of Medicine Diastolic blood 2019-09-02 80 mm[Hg] [facility] [employer] pressure 18:36:00 of Medicine Heart rate 2019-09-02 96 /min [facility] 18:36:00 of Medicine Body temperature 2019-09-02 36.39 [facility] 18:36:00 of Medicine Body height 2019-09-02 172.7 cm [facility] 18:36:00 of Medicine Body weight 2019-09-02 99.791 kg wheelchair [facility] 18:36:00 of Medicine BMI 2019-09-02 33.45 kg/m2 [facility] 18:36:00 of Medicine Systolic blood 2019-09-02 129 mm[Hg] [employer] [facility] 18:36:00 of Medicine Diastolic blood 2019-09-02 80 mm[Hg] [employer] [facility] 18:36:00 of Medicine Heart rate 2019-09-02 96 /min [facility] 18:36:00 of Medicine Body temperature 2019-09-02 36.39 [facility] 18:36:00 of Medicine Body height 2019-09-02 172.7 cm [facility] 18:36:00 of Medicine Body weight 2019-09-02 99.791 kg [facility] 18:36:00 of Medicine BMI 2019-09-02 33.45 kg/m2 [facility] 18:36:00 of Medicine Systolic blood 2019-04-26 127 mm[Hg] [facility] pressure 14:56:00 of Medicine Diastolic blood 2019-04-26 86 mm[Hg] [employer] [employer] [facility] 14:56:00 of Medicine Heart rate 2019-04-26 107 /min [facility] 14:56:00 of Medicine Body temperature 2019-04-26 36.83 [facility] 14:56:00 of Medicine Body height 2019-04-26 172.7 cm [facility] 14:56:00 of Medicine Body weight 2019-04-26 99.791 kg [facility] 14:56:00 of Medicine BMI 2019-04-26 33.45 kg/m2 [facility] 14:56:00 of Medicine Systolic blood 2019-04-26 127 mm[Hg] [employer] [facility] 14:56:00 of Medicine Diastolic blood 2019-04-26 86 mm[Hg] [facility] pressure 14:56:00 of Medicine Heart rate 2019-04-26 107 /min [facility] 14:56:00 of Medicine Body temperature 2019-04-26 36.83 [facility] 14:56:00 of Medicine Body height 2019-04-26 172.7 cm [facility] 14:56:00 of Medicine Body weight 2019-04-26 99.791 kg [facility] 14:56:00 of Medicine BMI 2019-04-26 33.45 kg/m2 [facility] 14:56:00 of Medicine Systolic blood 2020-05-10 113 mm[Hg] [facility] pressure 16:00[facility]00 [facility] Diastolic blood 2020-05-10 66 mm[Hg] [facility] pressure 16:00:00 [facility] Heart rate 2020-05-10 77 /min [facility] 16:00:00 [facility] Body temperature 2020-05-[address] [facility] 16:00:00 [facility] Respiratory rate 2020-05-10 14 /min [facility] 16:00:00 [facility] Oxygen saturation 2020-05-10 98 /min [facility] Arterial blood 16:00:00 Medical Ce nter by Pulse oximetry Body weight 2020-05-[address] [facility] 04:41:00 [facility] Center BMI 2020-05-10 32.01 kg/m2 [facility] 04:41:00 [facility] Body height 2020-05-[address] [facility] 20:00:00 [facility] Procedures Procedure Date / Time Performing Clinician Source Performed COMPREHENSIVE METABOLIC 2022-11-25 17:40:00 Sukhi Bermudez [facility] PANEL Medicine MAGNESIUM 2022-11-25 17:40:00 Sukhi Bermudez [facility] T4 FREE 2022-11-25 17:40:00 Sukhi Bermudez [facility] TSH 2022-11-25 17:40:00 Sukhi Bermudez [facility] CBC W/AUTO DIFF WITH 2022-11-25 17:40:[address] [facility] PLATELETS Medicine CBC W/AUTO DIFF WITH 2022-11-25 12:40:00 [facility] PLATELETS Medicine COMPREHENSIVE METABOLIC 2022-11-25 12:40:00 [facility] MAGNESIUM 2022-11-25 12:40:00 [facility] TSH 2022-11-25 12:40:00 [facility] T4 FREE 2022-11-25 12:40:00 [facility] CBC W/AUTO DIFF WITH 2022-09-12 15:31:59 [facility] COMPREHENSIVE METABOLIC 2022-09-12 15:31:59 [facility] MAGNESIUM 2022-09-12 15:31:59 [facility] CT ABDOMEN/PELVIS WITH IV 2022-09-01 11:45:00 Victoria Unger [facility] CT CHEST WITHOUT IV 2022-09-01 11:35:00 Victoria Unger [facility] POCT-CREATININE 2022-09-01 11:11:00 Victoria Unger [facility] EXTERNAL PROVIDER RECORDS 2022-08-27 06:01:00 Doctor Unassigned, [facility] Name [facility] AMB REF TO VASC SURG [facility] 2022-07-15 13:25:19 [facility] AMB REF TO VASC SURG [facility] 2022-06-04 17:42:46 [facility] POCT GLUCOSE (AUTOMATED) 2022-05-27 16:19:[address] [facility] POCT GLUCOSE (AUTOMATED) 2022-05-27 13:09:[address] [facility] VITAMIN B12, LEVEL 2022-05-27 09:53:00 [facility] FOLATE 2022-05-27 09:53:00 [facility] 2022-05-27 09:53:00 Par[facility] EXTRA TUBE LT. GREEN 2022-05-27 09:53:00 Nina Chavarria [facility] EXTERNAL PROVIDER RECORDS 2022-05-27 05:01:00 Doctor Unassigned, [facility] [place] [facility] POCT GLUCOSE (AUTOMATED) 2022-05-27 02:50:[address] [facility] POCT GLUCOSE (AUTOMATED) 2022-05-26 21:45:[address] [facility] POCT GLUCOSE (AUTOMATED) 2022-05-26 17:12:[address] [facility] POCT GLUCOSE (AUTOMATED) 2022-05-26 13:13:[address] [facility] BASIC METABOLIC PANEL (NA, 2022-05-26 11:22:00 Michelle Chavis [facility] K, CL, CO2, GLUCOSE, BUN, Medica l Branch CREATININE, CA) POCT GLUCOSE (AUTOMATED) 2022-05-26 01:07:00 Greg Rivera [facility] POCT GLUCOSE (AUTOMATED) 2022-05-25 22:29:[address] [facility] POCT GLUCOSE (AUTOMATED) 2022-05-25 20:18:[address] [facility] POCT GLUCOSE (AUTOMATED) 2022-05-25 16:46:00 Miguel Greg [facility] POCT GLUCOSE (AUTOMATED) 2022-05-25 13:44:00 Miguel Greg [facility] MAGNESIUM 2022-05-25 09:20:00 Génesis [facility] BASIC METABOLIC PANEL (NA, 2022-05-25 09:20:00 Lo Capps [facility] K, CL, CO2, GLUCOSE, BUN, Medica l Branch CREATININE, CA) POCT GLUCOSE (AUTOMATED) 2022-05-25 01:02:00 Greg Rivera [facility] POCT GLUCOSE (AUTOMATED) 2022-05-24 22:16:00 Greg Rivera [facility] POCT GLUCOSE (AUTOMATED) 2022-05-24 19:11:00 Greg Rivera [facility] POCT GLUCOSE (AUTOMATED) 2022-05-24 17:04:00 Greg Rivera [facility] MAGNESIUM 2022-05-24 13:40:00 Génesis [facility] BASIC METABOLIC PANEL (NA, 2022-05-24 13:40:00 Lo Capps [facility] K, CL, CO2, GLUCOSE, BUN, Medica l Branch CREATININE, CA) POCT GLUCOSE (AUTOMATED) 2022-05-24 13:13:[address] [facility] MRSA / MSSA SCREEN BY PCR, 2022-05-24 08:26:00 Timoteo [facility]W 2022-05-24 06:56:[address] [facility] CT INSERT NON-TUNNEL CV 2022-05-24 06:40:36 Oracio Akers [facility] CATH [facility] LACTIC ACID WHOLE BLOOD 2022-05-24 03:23:00 [facility] PELVIS W 2022-05-24 02:44:18 Oracio Akers [facility] CONTRAST [facility] URINALYSIS 2022-05-24 00:39:[address] [facility] URINE CULTURE 2022-05-24 00:39:[address] [facility] LACTIC ACID WHOLE BLOOD 2022-05-23 23:46:00 [facility] BLOOD [facility]ULT[facility] SCREEN 2022-05-23 23:44:00 Jamil Camargo [facility] BLOOD CULTURE WORKUP 2022-05-23 23:44:00 Jamil Camargo [facility] GRAM NEGATIVE BLOOD 2022-05-23 23:44:00 Jamil Camargo [facility] PATHOGENS DNA [facility] PROBE-ANAEROBIC HB ECG ROUTINE & RHYTHM 2022-05-23 22:45:15 [facility] VW 2022-05-23 22:19:[address] [facility] COVID-19 (ID NOW RAPID 2022-05-23 22:05:00 Jamil Camargo [facility] TESTING) Medical Branch LAB ONLY COVID 2022-05-23 22:05:00 Jamil Camargo [facility] INTERPRETATION [facility] MAGNESIUM 2022-05-23 21:52[facility]00 [facility]EL 2022-05-23 21:52:00 Beatriz Lezama [facility] ([id number]) Medical [place] CBC WITH DIFF 2022-05-23 21:52:00 Beatriz Lezama [facility] GALV ONLY - INFLUENZA A B 2022-05-23 21:52:00 Beatriz Lezama [facility] RSV PCR Medical Branch CONSENT/REFUSAL FOR 2022-05-23 19:03:57 Doctor Unassigned, [facility] DIAGNOSIS AND TREATMENT [place] [facility] ASSIGNMENT OF BENEFITS 2022-05-23 18:19:23 Doctor Unassigned, [facility] [place] [facility] SKIN / NAIL BIOPSY 2022-05-21 17:50:45 Rhona Kelly [facility] SKIN / NAIL BIOPSY 2022-05-21 12:50:45 [facility] DERMATOPATHOLOGY REPORT 2022-05-21 12:50:00 [facility] DERMATOPATHOLOGY REPORT 2022-05-21 12:00:00 [facility] POCT GLUCOSE (AUTOMATED) 2022-05-16 18:57:00 Madhuri Avitia [facility] POCT GLUCOSE (AUTOMATED) 2022-05-16 12:48:00 Madhuri Avitia [facility] PHOSPHORUS 2022-05-16 10:17:00 [facility] MAGNESIUM 2022-05-16 10:17:00 [facility] BASIC METABOLIC PANEL (NA, 2022-05-16 10:17[facility]00 [facility] K, CL, CO2, GLUCOSE, BUN, Medica l Branch CREATININE, CA) CBC WITH DIFF 2022-05-16 10:17:00 [facility] POCT GLUCOSE (AUTOMATED) 2022-05-16 01:14:00 Madhuri Avitia [facility] POCT GLUCOSE (AUTOMATED) 2022-05-15 21:36:00 Madhuri Avitia [facility] POCT GLUCOSE (AUTOMATED) 2022-05-15 18:18:00 Madhuri Avitia [facility] POCT GLUCOSE (AUTOMATED) 2022-05-15 13:05:00 Madhuri Avitia [facility] BASIC METABOLIC PANEL (NA, 2022-05-15 10:46:00 Jeremy Freitas [facility] K, CL, CO2, GLUCOSE, BUN, Medica l Branch CREATININE, CA) ABORH CONFIRMATION (LAB 2022-05-15 03:41:00 Jeremy Freitas [facility] ONLY) [facility] HB ABO GROUPING 2022-05-15 03:20:[address] [facility] LACTIC ACID WHOLE BLOOD 2022-05-15 03:20:[address] [facility] MYOGLOBIN URINE PANEL 2022-05-15 03:19:00 Jeremy Freitas [facility] POCT GLUCOSE (AUTOMATED) 2022-05-15 03:19:00 Madhuri Avitia [facility] PHOSPHORUS 2022-05-15 03:19:[address] [facility] AMYLASE 2022-05-15 03:19:[address] [facility] LIPASE 2022-05-15 03:19:[address] [facility] MAGNESIUM 2022-05-15 03:19:[address] [facility] IONIZED CALCIUM 2022-05-15 03:19:[address] [facility] HEPATIC FUNCTION PANEL 2022-05-15 03:19:00 Jeremy Freitas [facility] ([id number]) (ALB,T.PRO,BILI [facility] T,BU/BC,ALT,AST,ALK PHOS) BASIC METABOLIC PANEL (NA, 2022-05-15 03:19:00 Jeremy Freitas [facility] K, CL, CO2, GLUCOSE, BUN, Medica l Branch CREATININE, CA) CBC WITH DIFF 2022-05-15 03:19:[address] [facility] PROTHROMBIN TIME / INR 2022-05-15 03:19:[address] [facility] ACTIVATED PARTIAL THRMPLAS 2022-05-15 03:19:00 Jeremy Freitas [facility] DERMATOPATHOLOGY TISSUE 2022-05-15 00:00:00 Chiki Martinez [facility] EXAM Medical Branch MEMORANDUM OF TRANSFER 2022-05-14 05:01:00 [facility] [place] [facility] CT CHEST WITH IV CONTRAST 2022-05-02 10:17:00 Yen, Jessica Quiros [facility] CT ABDOMEN/PELVIS WITH IV 2022-05-02 10:17:00 Yen, Claude [facility] POCT-CREATININE 2022-05-02 09:53:00 [facility], [facility] ELECTROCARDIOGRAM COMPLETE 2022-03-12 14:30:00 Lalit Diaz [facility] CT DUPLEX SCAN 2022-03-12 10:20[facility]56 [facility] LIPID PANEL 2022-03-12 10:20:56 [facility] ELECTROCARDIOGRAM COMPLETE 2022-03-12 09:30:00 Maria Elena [facility] COMPREHENSIVE METABOLIC 2021-11-01 14:40:00 Sukhi Bermudez [facility] PANEL Medicine MAGNESIUM 2021-11-01 14:40:00 Sukhi Bermudez [facility] CBC W/AUTO DIFF WITH 2021-11-01 14:40:[address] [facility] PLATELETS Medicine CBC W/AUTO DIFF WITH 2021-11-01 09:40:00 [facility] PLATELETS Medicine COMPREHENSIVE METABOLIC 2021-11-01 09:40:00 [facility] PANEL Medicine MAGNESIUM 2021-11-01 09:40:00 [facility] COMPREHENSIVE METABOLIC 2021-07-19 17:23:00 Victoria Unger [facility] PANEL Medicine MAGNESIUM 2021-07-19 17:23:00 Victoria Unger [facility] CBC W/AUTO DIFF WITH 2021-07-19 17:23:00 Victoria Unger [facility] PLATELETS Medicine COMPREHENSIVE METABOLIC 2021-05-24 18:44:00 Victoria Unger [facility] CBC W/AUTO DIFF WITH 2021-05-24 18:44:00 Victoria Unger [facility] CT CHEST WITH IV CONTRAST 2021-04-11 10:13:00 Yen, [facility] CT ABDOMEN/PELVIS WITH & 2021-04-11 10:13:00 Yen, [facility] WITHOUT IV CONTRAST Medical [facility] er CT CHEST WITH IV CONTRAST 2021-02-06 12:05:00 Yen, [facility] CT ABDOMEN/PELVIS WITH IV 2021-02-06 12:05:00 Yen, [facility] CT ABDOMEN/PELVIS WITH IV 2020-11-19 11:25:00 Yen, [facility] CT CHEST WITH IV CONTRAST 2020-11-19 11:25:00 Yen, [facility] POCT-CREATININE 2020-11-19 10:44:00 Yen, [facility] CT ABDOMEN/PELVIS WITH IV 2020-07-12 11:44:00 Yen, [facility] CT CHEST WITH IV CONTRAST 2020-07-12 11:44:00 Yen, [facility] POCT-CREATININE 2020-07-12 11:07:00 Yen, [facility] CT BIOPSY ABDOMEN 2020-05-10 12:25:00 [place], Melinda Amor [facility] TISSUE EXAM 2020-05-10 11:54:00 [place], Melinda Amor [facility] SARS-COV2/RT-PCR ([facility] & 2020-05-10 04:37:00 [place], Melinda Gerber [facility] REF LABS) [facility] CBC (HEMOGRAM ONLY) 2020-05-10 04:01:00 [place]ding, Melinda Amor [facility] PROTHROMBIN TIME/INR 2020-05-10 04:01:00 [place]ding, Melinda Amor [facility] POCT-GLUCOSE METER 2020-05-09 23:10:00 Claude Bermudez [facility] APTT 2020-05-09 10:22:00 [facility]O 2020-05-09 10:22:00 [facility]/INR 2020-05-09 10:22:00 Yamileth, [facility] CBC W/PLT COUNT & AUTO 2020-04-20 10:17:[address] [facility] PROTHROMBIN TIME/INR 2020-04-20 10:17:[address] [facility] APTT 2020-04-20 10:17:[address] [facility] CBC W/PLT COUNT & AUTO 2020-04-13 11:13:00 Tejastiffanie [facility] PROTHROMBIN TIME/INR 2020-04-13 11:08:[facility] APTT 2020-04-13 11:08:00 [facility] ACUTE HEPATITIS PROFILE 2019-09-09 15:10:00 Claude Bermudez [facility] HIV AB/AG 4TH GEN W RFLX 2019-09-09 15:10:[address] [facility] Plan of Care Planned Activity Planned Date Details Comments Source Future Scheduled 2023-04-[address] [facility] Test 00:00:00 (Season Ended) [code = [facility] INFLUENZA VACCINE (Season Ended)] Future Scheduled 2023-04-[address] [facility] Test 00:00:00 (Season Ended) [code = [facility] INFLUENZA VACCINE (Season Ended)] Future Scheduled 2022-12-25 CT CHEST WO CONTRAST Expected: [facility] Test 00:00:00 [code = 90898-1] 12/25/2022, of Medicine Expires: 11/26/2023 Future Scheduled 2022-12-25 CT ABDOMEN PELVIS W Expected: [employer] Test 00:00:00 CONTRAST [code = 12/25/2022, of Medicine 10711-7] Expires: 11/26/2023 Future Scheduled 2022-11-28 Screening for malignant [facility] Test 11:54:59 neoplasm of colon of Medicin e (procedure) [code = 511401391] Future Scheduled 2022-11-28 Pneumococcal Combined [facility] Test 11:54:59 (1 - PCV) [code = of Medicin e Pneumococcal Combined (1 - PCV)] Future Scheduled 2022-11-28 TETANUS SHOT (ADULT) [facility] Test 11:54:59 [code = TETANUS SHOT of Medi cine (ADULT)] Future Scheduled 2022-11-28 Diabetic foot [facility] Test 11:54:59 examination of Medicine (regime/therapy) [code = 682009592] Future Scheduled 2022-11-28 Annual Diabetic [facility] Test 11:54:59 Retinopathy Screening of Med icine [code = Annual Diabetic Retinopathy Screening] Future Scheduled 2022-11-28 BMI Follow Up Plan [facility] Test 11:54:59 [code = BMI Follow Up of Med icine Plan] Future Scheduled 2022-11-28 ZOSTER VACCINE (1 of 2) [facility] Test 11:54:59 [code = ZOSTER VACCINE of Va dicine (1 of 2)] Future Scheduled 2022-11-28 Medicare Awv (Initial) [facility] Test 11:54:59 [code = Medicare Awv of Medi cine (Initial)] Future Scheduled 2022-11-28 COVID-19 Vaccine (3 - [facility] Test 11:54:59 Booster for Pfizer of Medici ne series) [code = COVID-19 Vaccine (3 - Booster for Pfizer series)] Future Scheduled 2022-11-28 FLU VACCINE > 6 MONTHS [employer] Test 11:54:59 [code = FLU VACCINE > 6 of M edicine MONTHS] Future Scheduled 2022-09-22 Screening for malignant [facility] Test 10:04:43 neoplasm of colon of Medicin e (procedure) [code = 155212595] Future Scheduled 2022-09-22 Pneumococcal Combined [facility] Test 10:04:43 (1 - PCV) [code = of Medicin e Pneumococcal Combined (1 - PCV)] Future Scheduled 2022-09-22 TETANUS SHOT (ADULT) [facility] Test 10:04:43 [code = TETANUS SHOT of Medi cine (ADULT)] Future Scheduled 2022-09-22 Diabetic foot [facility] Test 10:04:43 examination of Medicine (regime/therapy) [code = 372417486] Future Scheduled 2022-09-22 Annual Diabetic [facility] Test 10:04:43 Retinopathy Screening of Med icine [code = Annual Diabetic Retinopathy Screening] Future Scheduled 2022-09-22 BMI Follow Up Plan [facility] Test 10:04:43 [code = BMI Follow Up of Med icine Plan] Future Scheduled 2022-09-22 ZOSTER VACCINE (1 of 2) [facility] Test 10:04:43 [code = ZOSTER VACCINE of Me dicine (1 of 2)] Future Scheduled 2022-09-22 Medicare Awv (Initial) [facility] Test 10:04:43 [code = Medicare Awv of Medi cine (Initial)] Future Scheduled 2022-09-22 COVID-19 Vaccine (3 - [facility] Test 10:04:43 Booster for Pfizer of Medici ne series) [code = COVID-19 Vaccine (3 - Booster for Pfizer series)] Future Scheduled 2022-09-22 FLU VACCINE > 6 MONTHS Postponed from [facility] Test 10:04:43 [code = FLU VACCINE > 6 03/03/2022 of M edicine MONTHS] (Postpone Reason: Patient declined today) Future Scheduled 2022-09-12 CBC W/AUTO DIFF WITH Ordered: [facility] Test 15:31:59 PLATELETS [code = 09/12/2022 of Medicin e 13104-3] Future Scheduled 2022-09-12 COMPREHENSIVE METABOLIC Ordered: [facility] Test 15:31:59 PANEL [code = 11445-8] 09/12/2022 of Me dicine Future Scheduled 2022-09-12 MAGNESIUM [code = Ordered: [facility] Test 15:31:59 29161-3] 09/12/2022 of Medicine Future Scheduled 2022-08-[address] [facility] Test 00:00:00 (12+) [code = Medical Center DEPRESSION SCREENING (12+)] Future Scheduled 2022-08-[address] [facility] Test 00:00:00 (12+) [code = Medical Center DEPRESSION SCREENING (12+)] Future Scheduled 2022-08-[address] [facility] Test 00:00:00 (12+) [code = Medical Center DEPRESSION SCREENING (12+)] Future Scheduled 2022-08-[address] [facility] Test 00:00:00 (12+) [code = Medical Center DEPRESSION SCREENING (12+)] Future Scheduled 2022-08-[address] [facility] Test 00:00:00 (12+) [code = Medical Center DEPRESSION SCREENING (12+)] Future Scheduled 2022-07-30 COVID-19 Vaccine (3 - [facility] Test 14:29:19 Booster for Pfizer of Medici ne series) [code = COVID-19 Vaccine (3 - Booster for Pfizer series)] Future Scheduled 2022-07-30 FLU VACCINE > 6 MONTHS Postponed from [facility] Test 14:29:19 [code = FLU VACCINE > 6 03/03/2022 of M edicine MONTHS] (Postpone Reason: Patient declined today) Future Scheduled 2022-07-30 MEDICARE AWV (Initial) [facility] Test 14:29:19 [code = MEDICARE AWV of Medi cine (Initial)] Future Scheduled 2022-07-30 Screening for malignant [facility] Test 14:29:19 neoplasm of colon of Medicin e (procedure) [code = 863526713] Future Scheduled 2022-07-30 Pneumococcal Combined [facility] Test 14:29:19 (1 - PCV) [code = of Medicin e Pneumococcal Combined (1 - PCV)] Future Scheduled 2022-07-30 TETANUS SHOT (ADULT) [facility] Test 14:29:19 [code = TETANUS SHOT of Medi cine (ADULT)] Future Scheduled 2022-07-30 Diabetic foot [facility] Test 14:29:19 examination of Medicine (regime/therapy) [code = 969049211] Future Scheduled 2022-07-30 ANNUAL DIABETIC [facility] Test 14:29:19 RETINOPATHY SCREENING of Med icine [code = ANNUAL DIABETIC RETINOPATHY SCREENING] Future Scheduled 2022-07-30 BMI FOLLOW UP PLAN [facility] Test 14:29:19 [code = BMI FOLLOW UP of Med icine PLAN] Future Scheduled 2022-07-30 ZOSTER VACCINE (1 of 2) [facility] Test 14:29:19 [code = ZOSTER VACCINE of Me dicine (1 of 2)] Future Scheduled 2022-07-25 CT CHEST WO CONTRAST 1 Occurrences [facility] Test 15:13:49 [code = 27506-8] starting of Medicine 07/25/2022 until 07/25/2023 Future Scheduled 2022-07-25 CT ABDOMEN PELVIS W 1 Occurrences [facility] Test 15:13:49 CONTRAST [code = starting of Medicine 65193-5] 07/25/2022 until 07/25/2023 Future Scheduled 2022-07-15 Screening for malignant [facility] Test 11:31:58 neoplasm of colon of Medicin e (procedure) [code = 128722635] Future Scheduled 2022-07-15 Pneumococcal Combined [facility] Test 11:31:58 (1 - PCV) [code = of Medicin e Pneumococcal Combined (1 - PCV)] Future Scheduled 2022-07-15 TETANUS SHOT (ADULT) [facility] Test 11:31:58 [code = TETANUS SHOT of Medi cine (ADULT)] Future Scheduled 2022-07-15 Diabetic foot [facility] Test 11:31:58 examination of Medicine (regime/therapy) [code = 336389207] Future Scheduled 2022-07-15 ANNUAL DIABETIC [facility] Test 11:31:58 RETINOPATHY SCREENING of Med icine [code = ANNUAL DIABETIC RETINOPATHY SCREENING] Future Scheduled 2022-07-15 BMI FOLLOW UP PLAN [facility] Test 11:31:58 [code = BMI FOLLOW UP of Med icine PLAN] Future Scheduled 2022-07-15 ZOSTER VACCINE (1 of 2) [facility] Test 11:31:58 [code = ZOSTER VACCINE of Me dicine (1 of 2)] Future Scheduled 2022-07-15 MEDICARE AWV (Initial) [facility] Test 11:31:58 [code = MEDICARE AWV of Medi cine (Initial)] Future Scheduled 2022-07-15 COVID-19 Vaccine (3 - [facility] Test 11:31:58 Booster for Pfizer of Medici ne series) [code = COVID-19 Vaccine (3 - Booster for Pfizer series)] Future Scheduled 2022-07-15 FLU VACCINE > 6 MONTHS Postponed from [facility] Test 11:31:58 [code = FLU VACCINE > 6 03/03/2022 of M edicine MONTHS] (Postpone Reason: Patient declined today) Future Scheduled 2022-06-18 Screening for malignant [facility] Test 11:05:45 neoplasm of colon of Medicin e (procedure) [code = 783976328] Future Scheduled 2022-06-18 Pneumococcal Combined [facility] Test 11:05:45 (1 - PCV) [code = of Medicin e Pneumococcal Combined (1 - PCV)] Future Scheduled 2022-06-18 TETANUS SHOT (ADULT) [facility] Test 11:05:45 [code = TETANUS SHOT of Medi cine (ADULT)] Future Scheduled 2022-06-18 Diabetic foot [facility] Test 11:05:45 examination of Medicine (regime/therapy) [code = 626182062] Future Scheduled 2022-06-18 ANNUAL DIABETIC [facility] Test 11:05:45 RETINOPATHY SCREENING of Med icine [code = ANNUAL DIABETIC RETINOPATHY SCREENING] Future Scheduled 2022-06-18 BMI FOLLOW UP PLAN [facility] Test 11:05:45 [code = BMI FOLLOW UP of Med icine PLAN] Future Scheduled 2022-06-18 ZOSTER VACCINE (1 of 2) [facility] Test 11:05:45 [code = ZOSTER VACCINE of Va dicine (1 of 2)] Future Scheduled 2022-06-18 MEDICARE AWV (Initial) [facility] Test 11:05:45 [code = MEDICARE AWV of Medi cine (Initial)] Future Scheduled 2022-06-18 COVID-19 Vaccine (3 - [facility] Test 11:05:45 Booster for Pfizer of Medici ne series) [code = COVID-19 Vaccine (3 - Booster for Pfizer series)] Future Scheduled 2022-06-18 FLU VACCINE > 6 MONTHS Postponed from [facility] Test 11:05:45 [code = FLU VACCINE > 6 03/03/2022 of [facility] MONTHS] (Postpone Reason: Patient declined today) Future Scheduled 2022-06-10 Screening for malignant [facility] Test 12:49:54 neoplasm of colon of Medicin e (procedure) [code = 637496476] Future Scheduled 2022-06-10 Pneumococcal Combined [facility] Test 12:49:54 (1 - PCV) [code = of Medicin e Pneumococcal Combined (1 - PCV)] Future Scheduled 2022-06-10 TETANUS SHOT (ADULT) [facility] Test 12:49:54 [code = TETANUS SHOT of Medi cine (ADULT)] Future Scheduled 2022-06-10 Diabetic foot [facility] Test 12:49:54 examination of Medicine (regime/therapy) [code = 001600389] Future Scheduled 2022-06-10 ANNUAL DIABETIC [facility] Test 12:49:54 RETINOPATHY SCREENING of Med icine [code = ANNUAL DIABETIC RETINOPATHY SCREENING] Future Scheduled 2022-06-10 BMI FOLLOW UP PLAN [facility] Test 12:49:54 [code = BMI FOLLOW UP of Med icine PLAN] Future Scheduled 2022-06-10 ZOSTER VACCINE (1 of 2) [facility] Test 12:49:54 [code = ZOSTER VACCINE of Me dicine (1 of 2)] Future Scheduled 2022-06-10 MEDICARE AWV (Initial) [facility] Test 12:49:54 [code = MEDICARE AWV of Medi cine (Initial)] Future Scheduled 2022-06-10 COVID-19 Vaccine (3 - [facility] Test 12:49:54 Booster for Pfizer of Medici ne series) [code = COVID-19 Vaccine (3 - Booster for Pfizer series)] Future Scheduled 2022-06-10 FLU VACCINE > 6 MONTHS Postponed from [facility] Test 12:49:54 [code = FLU VACCINE > 6 03/03/2022 of M edicine MONTHS] (Postpone Reason: Patient declined today) Future Scheduled 2022-06-04 Screening for malignant [facility] Test 17:41:33 neoplasm of colon of Medicin e (procedure) [code = 821621133] Future Scheduled 2022-06-04 Pneumococcal Combined [facility] Test 17:41:33 (1 - PCV) [code = of Medicin e Pneumococcal Combined (1 - PCV)] Future Scheduled 2022-06-04 TETANUS SHOT (ADULT) [facility] Test 17:41:33 [code = TETANUS SHOT of Medi cine (ADULT)] Future Scheduled 2022-06-04 Diabetic foot [facility] Test 17:41:33 examination of Medicine (regime/therapy) [code = 372365510] Future Scheduled 2022-06-04 ANNUAL DIABETIC [facility] Test 17:41:33 RETINOPATHY SCREENING of Med icine [code = ANNUAL DIABETIC RETINOPATHY SCREENING] Future Scheduled 2022-06-[address] UP PLAN [facility] Test 17:41:33 [code = BMI FOLLOW UP of Med icine PLAN] Future Scheduled 2022-06-04 ZOSTER VACCINE (1 of 2) [facility] Test 17:41:33 [code = ZOSTER VACCINE of Me dicine (1 of 2)] Future Scheduled 2022-06-04 COVID-19 Vaccine (3 - [facility] Test 17:41:33 Booster for Pfizer of Medici ne series) [code = COVID-19 Vaccine (3 - Booster for Pfizer series)] Future Scheduled 2022-06-04 FLU VACCINE > 6 MONTHS Postponed from [facility] Test 17:41:33 [code = FLU VACCINE > 6 03/03/2022 of M edicine MONTHS] (Postpone Reason: Patient declined today) Future Scheduled 2022-06-04 MEDICARE AWV (Initial) [facility] Test 17:41:33 [code = MEDICARE AWV of Medi cine (Initial)] Future Scheduled 2022-05-21 DERMATOPATHOLOGY REPORT Release Upon [facility] Test 12:51:03 [code = NOCPT] Ordering for 1 of Medicine Occurrences starting 05/21/2022 Future Scheduled 2022-05-21 Screening for malignant [facility] Test 12:48:12 neoplasm of colon of Medicin e (procedure) [code = 596405747] Future Scheduled 2022-05-21 Pneumococcal Combined [facility] Test 12:48:12 (1 - PCV) [code = of Medicin e Pneumococcal Combined (1 - PCV)] Future Scheduled 2022-05-21 TETANUS SHOT (ADULT) [facility] Test 12:48:12 [code = TETANUS SHOT of Medi cine (ADULT)] Future Scheduled 2022-05-21 Diabetic foot [facility] Test 12:48:12 examination of Medicine (regime/therapy) [code = 194662260] Future Scheduled 2022-05-21 ANNUAL DIABETIC [facility] Test 12:48:12 RETINOPATHY SCREENING of Med icine [code = ANNUAL DIABETIC RETINOPATHY SCREENING] Future Scheduled 2022-05-21 BMI FOLLOW UP PLAN [facility] Test 12:48:12 [code = BMI FOLLOW UP of Med icine PLAN] Future Scheduled 2022-05-21 ZOSTER VACCINE (1 of 2) [facility] Test 12:48:12 [code = ZOSTER VACCINE of Va alessiaine (1 of 2)] Future Scheduled 2022-05-21 MEDICARE AWV (Initial) [facility] Test 12:48:12 [code = MEDICARE AWV of Medi cine (Initial)] Future Scheduled 2022-05-21 COVID-19 Vaccine (3 - [facility] Test 12:48:12 Booster for Pfizer of Medici ne series) [code = COVID-19 Vaccine (3 - Booster for Pfizer series)] Future Scheduled 2022-05-21 FLU VACCINE > 6 MONTHS [facility] Test 12:48:12 [code = FLU VACCINE > 6 of M edicine MONTHS] Future Scheduled 2022-04-03 INFLUENZA VACCINE (#1) [facility] Test 00:[facility]00 [code = INFLUENZA Medical Ce nter VACCINE (#1)] Future Scheduled 2022-04-03 INFLUENZA VACCINE (#1) [facility] Test 00:00:00 [code = INFLUENZA Medical Ce nter VACCINE (#1)] Future Scheduled 2022-04-03 INFLUENZA VACCINE (#1) [facility] Test 00:00:00 [code = INFLUENZA Medical Ce nter VACCINE (#1)] Future Scheduled 2022-04-03 INFLUENZA VACCINE (#1) [facility] Test 00:00:00 [code = INFLUENZA Medical Ce nter VACCINE (#1)] Future Scheduled 2022-04-03 INFLUENZA VACCINE (#1) [facility] Test 00:00:00 [code = INFLUENZA Medical Ce nter VACCINE (#1)] Future Scheduled 2022-04-03 INFLUENZA VACCINE (#1) [facility] Test 00:00:00 [code = INFLUENZA Medical Ce nter VACCINE (#1)] Future Scheduled 2022-04-03 INFLUENZA VACCINE (#1) [facility] Test 00:00:00 [code = INFLUENZA Medical Ce nter VACCINE (#1)] Future Scheduled 2022-03-13 Screening for malignant [facility] Test 08:27:10 neoplasm of colon of Medicin e (procedure) [code = 881066154] Future Scheduled 2022-03-13 Pneumococcal Combined [facility] Test 08:27:10 (1 - PCV) [code = of Medicin e Pneumococcal Combined (1 - PCV)] Future Scheduled 2022-03-13 TETANUS SHOT (ADULT) [facility] Test 08:27:10 [code = TETANUS SHOT of [employer] (ADULT)] Future Scheduled 2022-03-13 Diabetic foot [facility] Test 08:27:10 examination of Medicine (regime/therapy) [code = 660596323] Future Scheduled 2022-03-13 ANNUAL DIABETIC [facility] Test 08:27:10 RETINOPATHY SCREENING of Med icine [code = ANNUAL DIABETIC RETINOPATHY SCREENING] Future Scheduled 2022-03-13 BMI FOLLOW UP PLAN [facility] Test 08:27:10 [code = BMI FOLLOW UP of Med icine PLAN] Future Scheduled 2022-03-13 ZOSTER VACCINE (1 of 2) [facility] Test 08:27:10 [code = ZOSTER VACCINE of Va dicine (1 of 2)] Future Scheduled 2022-03-13 MEDICARE AWV (Initial) [facility] Test 08:27:10 [code = MEDICARE AWV of [facility] (Initial)] Future Scheduled 2022-03-13 COVID-19 Vaccine (3 - [facility] Test 08:27:10 Booster for Pfizer of Medici ne series) [code = COVID-19 Vaccine (3 - Booster for Pfizer series)] Future Scheduled 2022-03-13 FLU VACCINE > 6 MONTHS [facility] Test 08:27:10 [code = FLU VACCINE > 6 of edicine MONTHS] Future Scheduled 2022-03-12 CT DUPLEX SCAN Ordered: [facility] Test 10:20:56 EXTRACRANIAL,LIMITED 03/12/2022 of [employer] [code = 87266] Future Scheduled 2022-03-12 LIPID PANEL [code = Ordered: [facility] Test 10:20:56 13827-6] 03/12/2022 of Medicine Future Scheduled 2022-03-12 ELECTROCARDIOGRAM [facility] Test 09:24:45 COMPLETE [code = 02971] of M edicine Diagnostic Test 2022-03-12 ECHO,COMPLETE WITH Expected: [facility] Pending 00:00:00 SALINE [code = 26504-0] 03/12/2022, of M edicine Expires: 03/12/2023 Future Scheduled 2021-12-20 CT CHEST ABDOMEN PELVIS Expected: [facility] Test 00:00:00 W/WO CONTRAST [code = 12/20/2021, of Med icine 47919] Expires: 11/22/2022 Future Scheduled 2021-11-24 Screening for malignant [employer] Test 22:06:14 neoplasm of colon of Medicin e (procedure) [code = 938997894] Future Scheduled 2021-11-24 Pneumococcal Combined [facility] [employer] Test 22:06:14 (1 of 2 - PPSV23) [code of M edicine = Pneumococcal Combined (1 of 2 - PPSV23)] Future Scheduled 2021-11-24 TETANUS SHOT (ADULT) [employer] Test 22:06:14 [code = TETANUS SHOT of Medi cine (ADULT)] Future Scheduled 2021-11-24 Diabetic foot [facility] Test 22:06:14 examination of Medicine (regime/therapy) [code = 015474922] Future Scheduled 2021-11-24 ANNUAL DIABETIC [facility] Test 22:06:14 RETINOPATHY SCREENING of Med icine [code = ANNUAL DIABETIC RETINOPATHY SCREENING] Future Scheduled 2021-11-[address] UP [address]AN [facility] Test 22:06:14 [code = BMI FOLLOW UP of Med icine PLAN] Future Scheduled 2021-11-24 ZOSTER VACCINE (1 of 2) [facility] Test 22:06:14 [code = ZOSTER VACCINE of Me dicine (1 of 2)] Future Scheduled 2021-11-24 MEDICARE AWV (Initial) [facility] Test 22:06:14 [code = MEDICARE AWV of Medi cine (Initial)] Future Scheduled 2021-11-24 COVID-19 Vaccine (3 - [facility] Test 22:06:14 Booster for Pfizer of Medici ne series) [code = COVID-19 Vaccine (3 - Booster for Pfizer series)] Future Scheduled 2021-11-24 FLU VACCINE > 6 MONTHS [employer] Test 22:06:14 [code = FLU VACCINE > 6 of M edicine MONTHS] Future Scheduled 2021-11-22 CBC W/AUTO DIFF WITH Ordered: [facility] [employer] Test 10:14:01 PLATELETS [code = 11/22/2021 of Medicin e 27569-5] Future Scheduled 2021-11-22 COMPREHENSIVE METABOLIC Ordered: [facility] Test 10:14:01 PANEL [code = 33223-0] 11/22/2021 of Me dicine Future Scheduled 2021-11-22 MAGNESIUM [code = Ordered: [facility] Test 10:14:01 40140-1] 11/22/2021 of Medicine Future Scheduled 2021-11-01 Screening for malignant [facility] Test 10:14:45 neoplasm of colon of Medicin e (procedure) [code = 777927962] Future Scheduled 2021-11-01 Pneumococcal Combined [facility] Test 10:14:45 (1 of 2 - PPSV23) [code of M edicine = Pneumococcal Combined (1 of 2 - PPSV23)] Future Scheduled 2021-11-01 TETANUS SHOT (ADULT) [facility] Test 10:14:45 [code = TETANUS SHOT of Medi cine (ADULT)] Future Scheduled 2021-11-01 Diabetic foot [facility] Test 10:14:45 examination of Medicine (regime/therapy) [code = 190992638] Future Scheduled 2021-11-01 ANNUAL DIABETIC [facility] Test 10:14:45 RETINOPATHY SCREENING of Med icine [code = ANNUAL DIABETIC RETINOPATHY SCREENING] Future Scheduled 2021-11-01 BMI FOLLOW UP PLAN [facility] Test 10:14:45 [code = BMI FOLLOW UP of Med icine PLAN] Future Scheduled 2021-11-01 ZOSTER VACCINE (1 of 2) [facility] Test 10:14:45 [code = ZOSTER VACCINE of Va dicine (1 of 2)] Future Scheduled 2021-11-01 MEDICARE AWV (Initial) [facility] Test 10:14:45 [code = MEDICARE AWV of Medi cine (Initial)] Future Scheduled 2021-11-01 COVID-19 Vaccine (3 - [facility] Test 10:14:45 Booster for Pfizer of Medici ne series) [code = COVID-19 Vaccine (3 - Booster for Pfizer series)] Future Scheduled 2021-11-01 FLU VACCINE > 6 MONTHS [facility] Test 10:14:45 [code = FLU VACCINE > 6 of M edicine MONTHS] Future Scheduled 2021-08-[address] [facility] Test 00:00:00 (12+) [code = Medical Center DEPRESSION SCREENING (12+)] Future Scheduled 2021-08-[address] [facility] Test 00:00:00 (12+) [code = Medical Center DEPRESSION SCREENING (12+)] Future Scheduled 2021-08-[address] [facility] Test 00:00:00 (12+) [code = Medical Center DEPRESSION SCREENING (12+)] Future Scheduled 2021-08-[address] [facility] Test 00:00:00 (12+) [code = Medical Center DEPRESSION SCREENING (12+)] Future Scheduled 2021-07-19 CT CHEST ABDOMEN PELVIS 1 Occurrences [facility] Test 10:46:15 W CONTRAST [code = [place] [address]-8] 07/19/2021 until 07/19/2022 Future Scheduled 2021-07-19 Screening for malignant [facility] Test 10:33:46 neoplasm of colon of Medicin e (procedure) [code = 387693271] Future Scheduled 2021-07-19 Pneumococcal Combined [facility] Test 10:33:46 (1 of 2 - PPSV23) [code of M edicine = Pneumococcal Combined (1 of 2 - PPSV23)] Future Scheduled 2021-07-19 TETANUS SHOT (ADULT) [facility] Test 10:33:46 [code = TETANUS SHOT of Medi cine (ADULT)] Future Scheduled 2021-07-19 Diabetic foot [facility] Test 10:33:46 examination of Medicine (regime/therapy) [code = 684824054] Future Scheduled 2021-07-19 ANNUAL DIABETIC [facility] Test 10:33:46 RETINOPATHY SCREENING of Med icine [code = ANNUAL DIABETIC RETINOPATHY SCREENING] Future Scheduled 2021-07-19 BMI FOLLOW UP PLAN [facility] Test 10:33:46 [code = BMI FOLLOW UP of Med icine PLAN] Future Scheduled 2021-07-19 ZOSTER VACCINE (1 of 2) [facility] Test 10:33:46 [code = ZOSTER VACCINE of Va dicine (1 of 2)] Future Scheduled 2021-07-19 MEDICARE AWV (Initial) [facility] Test 10:33:46 [code = MEDICARE AWV of Medi cine (Initial)] Future Scheduled 2021-07-19 FLU VACCINE > 6 MONTHS [facility] Test 10:33:46 [code = FLU VACCINE > 6 of M edicine MONTHS] Future Scheduled 2021-07-19 COVID-19 Vaccine (3 - [facility] Test 10:33:46 Booster for Pfizer of Medici ne series) [code = COVID-19 Vaccine (3 - Booster for Pfizer series)] Future Scheduled 2021-05-27 Screening for malignant [facility] Test 08:42:59 neoplasm of colon of Medicin e (procedure) [code = 403653832] Future Scheduled 2021-05-27 TETANUS SHOT (ADULT) [facility] [employer] [employer] Test 08:42:59 [code = TETANUS SHOT of Medi cine (ADULT)] Future Scheduled 2021-05-27 Diabetic foot [facility] Test 08:42:59 examination of Medicine (regime/therapy) [code = 704920113] Future Scheduled 2021-05-27 ANNUAL DIABETIC [facility] Test 08:42:59 RETINOPATHY SCREENING of Med icine [code = ANNUAL DIABETIC RETINOPATHY SCREENING] Future Scheduled 2021-05-27 BMI FOLLOW UP PLAN [facility] Test 08:42:59 [code = BMI FOLLOW UP of Med icine PLAN] Future Scheduled 2021-05-27 ZOSTER VACCINE (1 of 2) [facility] Test 08:42:59 [code = ZOSTER VACCINE of Me dicine (1 of 2)] Future Scheduled 2021-05-27 MEDICARE AWV (Initial) [facility] Test 08:42:59 [code = MEDICARE AWV of Medi cine (Initial)] Future Scheduled 2021-05-27 FLU VACCINE > 6 MONTHS [facility] Test 08:42:59 [code = FLU VACCINE > 6 of M edicine MONTHS] Future Scheduled 2021-05-26 CT CHEST ABDOMEN PELVIS Expected: [facility] Test 00:00:00 W CONTRAST [code = 05/26/2021, [place] [address]-3] Expires: 03/26/2022 Future Scheduled 2021-05-09 Screening for malignant [facility] Test 10:57:40 neoplasm of colon of Medicin e (procedure) [code = 616074719] Future Scheduled 2021-05-09 TETANUS SHOT (ADULT) [employer] Test 10:57:40 [code = TETANUS SHOT of Medi cine (ADULT)] Future Scheduled 2021-05-09 Diabetic foot [facility] Test 10:57:40 examination of Medicine (regime/therapy) [code = 481407688] Future Scheduled 2021-05-09 ANNUAL DIABETIC [facility] Test 10:57:40 RETINOPATHY SCREENING of Med icine [code = ANNUAL DIABETIC RETINOPATHY SCREENING] Future Scheduled 2021-05-09 BMI FOLLOW UP PLAN [facility] Test 10:57:40 [code = BMI FOLLOW UP of Med icine PLAN] Future Scheduled 2021-05-09 ZOSTER VACCINE (1 of 2) [facility] Test 10:57:40 [code = ZOSTER VACCINE of Me dicine (1 of 2)] Future Scheduled 2021-05-09 MEDICARE AWV (Initial) [facility] Test 10:57:40 [code = MEDICARE AWV of Medi cine (Initial)] Future Scheduled 2021-05-09 FLU VACCINE > 6 MONTHS [facility] Test 10:57:40 [code = FLU VACCINE > 6 of M edicine MONTHS] Future Scheduled 2021-05-[address] [facility] Test 00:00:00 Counseling and Medical Cente r Screening (12+) [code = Tobacco Cessation Counseling and Screening (12+)] Future Scheduled 2021-05-[address] [facility] Test 00:00:00 Counseling and Medical Cente r Screening (12+) [code = Tobacco Cessation Counseling and Screening (12+)] Future Scheduled 2021-05-[address] [facility] Test 00:00:00 Counseling and Medical Cente r Screening (12+) [code = Tobacco Cessation Counseling and Screening (12+)] Future Scheduled 2021-05-[address] [facility] Test 00:00:00 Counseling and Medical Cente r Screening (12+) [code = Tobacco Cessation Counseling and Screening (12+)] Future Scheduled 2021-05-[address] [facility] Test 00:00:00 Counseling and Medical Cente r Screening (12+) [code = Tobacco Cessation Counseling and Screening (12+)] Future Scheduled 2021-05-[address] [facility] Test 00:00:00 Counseling and Medical Cente r Screening (12+) [code = Tobacco Cessation Counseling and Screening (12+)] Future Scheduled 2021-05-[address] [facility] Test 00:00:00 Counseling and Medical Cente r Screening (12+) [code = Tobacco Cessation Counseling and Screening (12+)] Future Scheduled 2021-04-26 CT PUNCH BIOPSY SKIN Ordered: [facility] Test 15:36:05 SINGLE LESION [code = 04/26/2021 of Med icine 12499] Future Scheduled 2021-04-26 CT PUNCH BIOPSY SKIN EA Ordered: [facility] Test 15:36:05 SEP/ADDITIONAL LESION 04/26/2021 of Med icine [code = 23932] Future Scheduled 2021-04-26 CT PUNCH BIOPSY SKIN Ordered: [facility] Test 15:36:05 SINGLE LESION [code = 04/26/2021 of Med icine 29709] Future Scheduled 2021-04-26 CT PUNCH BIOPSY SKIN EA Ordered: [facility] Test 15:36:05 SEP/ADDITIONAL LESION 04/26/2021 of Med icine [code = 13379] Future Scheduled 2021-04-26 Screening for malignant [facility] Test 09:43:48 neoplasm of colon of Medicin e (procedure) [code = 418900536] Future Scheduled 2021-04-26 TETANUS SHOT (ADULT) [facility] Test 09:43:48 [code = TETANUS SHOT of Medi cine (ADULT)] Future Scheduled 2021-04-26 Diabetic foot [facility] Test 09:43:48 examination of Medicine (regime/therapy) [code = 421062186] Future Scheduled 2021-04-26 ANNUAL DIABETIC [facility] Test 09:43:48 RETINOPATHY SCREENING of Med icine [code = ANNUAL DIABETIC RETINOPATHY SCREENING] Future Scheduled 2021-04-26 BMI FOLLOW UP PLAN [facility] Test 09:43:48 [code = BMI FOLLOW UP of Med icine PLAN] Future Scheduled 2021-04-26 ZOSTER VACCINE (1 of 2) [facility] Test 09:43:48 [code = ZOSTER VACCINE of Me dicine (1 of 2)] Future Scheduled 2021-04-26 MEDICARE AWV (Initial) [facility] Test 09:43:48 [code = MEDICARE AWV of Medi cine (Initial)] Future Scheduled 2021-04-26 FLU VACCINE > 6 MONTHS [facility] [employer] Test 09:43:48 [code = FLU VACCINE > 6 of M edicine MONTHS] Future Scheduled 2021-04-26 Screening for malignant [facility] Test 09:43:48 neoplasm of colon of Medicin e (procedure) [code = 859194298] Future Scheduled 2021-04-26 TETANUS SHOT (ADULT) [employer] Test 09:43:48 [code = TETANUS SHOT of Medi cine (ADULT)] Future Scheduled 2021-04-26 Diabetic foot [facility] Test 09:43:48 examination of Medicine (regime/therapy) [code = 334067706] Future Scheduled 2021-04-26 ANNUAL DIABETIC [facility] Test 09:43:48 RETINOPATHY SCREENING of Med icine [code = ANNUAL DIABETIC RETINOPATHY SCREENING] Future Scheduled 2021-04-26 BMI FOLLOW UP PLAN [facility] Test 09:43:48 [code = BMI FOLLOW UP of Med icine PLAN] Future Scheduled 2021-04-26 ZOSTER VACCINE (1 of 2) [facility] Test 09:43:48 [code = ZOSTER VACCINE of Va dicine (1 of 2)] Future Scheduled 2021-04-26 MEDICARE AWV (Initial) [facility] Test 09:43:48 [code = MEDICARE AWV of Medi cine (Initial)] Future Scheduled 2021-04-26 FLU VACCINE > 6 MONTHS [facility] Test 09:43:48 [code = FLU VACCINE > 6 of M edicine MONTHS] Future Scheduled 2021-04-03 INFLUENZA VACCINE (#1) [facility] Test 00:00:00 [code = INFLUENZA Medical Ce nter VACCINE (#1)] Future Scheduled 2021-04-03 INFLUENZA VACCINE (#1) [facility] Test 00:00:00 [code = INFLUENZA Medical Ce nter VACCINE (#1)] Future Scheduled 2021-04-03 INFLUENZA VACCINE (#1) [facility] Test 00:00:00 [code = INFLUENZA Medical Ce nter VACCINE (#1)] Future Scheduled 2021-03-26 TSH [code = 12076-3] Ordered: [facility] Test 17:55:25 03/26/2021 of Medicine Future Scheduled 2021-03-26 Screening for malignant [facility] Test 10:13:45 neoplasm of colon of Medicin e (procedure) [code = 937045406] Future Scheduled 2021-03-26 TETANUS SHOT (ADULT) [facility] Test 10:13:45 [code = TETANUS SHOT of Medi cine (ADULT)] Future Scheduled 2021-03-26 Diabetic foot [facility] Test 10:13:45 examination of Medicine (regime/therapy) [code = 950097831] Future Scheduled 2021-03-26 ANNUAL DIABETIC [facility] Test 10:13:45 RETINOPATHY SCREENING of Med icine [code = ANNUAL DIABETIC RETINOPATHY SCREENING] Future Scheduled 2021-03-26 BMI FOLLOW UP PLAN [facility] Test 10:13:45 [code = BMI FOLLOW UP of Med icine PLAN] Future Scheduled 2021-03-26 ZOSTER VACCINE (1 of 2) [facility] Test 10:13:45 [code = ZOSTER VACCINE of Me dicine (1 of 2)] Future Scheduled 2021-03-26 MEDICARE AWV (Initial) [facility] Test 10:13:45 [code = MEDICARE AWV of Medi cine (Initial)] Future Scheduled 2021-03-26 FLU VACCINE > 6 MONTHS [facility] Test 10:13:45 [code = FLU VACCINE > 6 of M edicine MONTHS] Future Scheduled 2021-01-23 Screening for malignant [facility] Test 08:29:09 neoplasm of colon of Medicin e (procedure) [code = 146879404] Future Scheduled 2021-01-23 TETANUS SHOT (ADULT) [facility] Test 08:29:09 [code = TETANUS SHOT of Medi cine (ADULT)] Future Scheduled 2021-01-23 Diabetic foot [facility] Test 08:29:09 examination of Medicine (regime/therapy) [code = 743063708] Future Scheduled 2021-01-23 ANNUAL DIABETIC [facility] Test 08:29:09 RETINOPATHY SCREENING of Med icine [code = ANNUAL DIABETIC RETINOPATHY SCREENING] Future Scheduled 2021-01-23 BMI FOLLOW UP PLAN [facility] Test 08:29:09 [code = BMI FOLLOW UP of Med icine PLAN] Future Scheduled 2021-01-23 ZOSTER VACCINE (1 of 2) [facility] Test 08:29:09 [code = ZOSTER VACCINE of Me dicine (1 of 2)] Future Scheduled 2021-01-23 MEDICARE AWV (Initial) [facility] Test 08:29:09 [code = MEDICARE AWV of Medi cine (Initial)] Future Scheduled 2021-01-23 FLU VACCINE > 6 MONTHS [facility] Test 08:29:09 [code = FLU VACCINE > 6 of M edicine MONTHS] Future Scheduled 2021-01-22 CT CHEST ABDOMEN PELVIS 1 Occurrences [facility] Test 12:12:52 W CONTRAST [code = [place] [address]-8] 01/22/2021 until 01/22/2022 Future Scheduled 2020-12-15 COVID-19 VACCINE (3 - [facility] Test 00:[facility]:00 Pfizer risk series) Medical Center [code = COVID-19 VACCINE (3 - Pfizer risk series)] Future Scheduled 2020-12-15 COVID-19 VACCINE (3 - [facility] Test 00:00:00 Pfizer risk series) Medical Center [code = COVID-19 VACCINE (3 - Pfizer risk series)] Future Scheduled 2020-12-15 COVID-19 VACCINE (3 - [facility] Test 00:00:00 Pfizer risk series) Medical Center [code = COVID-19 VACCINE (3 - Pfizer risk series)] Future Scheduled 2020-12-15 COVID-19 VACCINE (3 - [facility] Test 00:00:00 Pfizer risk series) Medical Center [code = COVID-19 VACCINE (3 - Pfizer risk series)] Future Scheduled 2020-12-15 COVID-19 VACCINE (3 - [facility] Test 00:00:00 Pfizer risk series) Medical Center [code = COVID-19 VACCINE (3 - Pfizer risk series)] Future Scheduled 2020-12-15 COVID-19 VACCINE (3 - [facility] Test 00:00:00 Pfizer risk series) Medical Center [code = COVID-19 VACCINE (3 - Pfizer risk series)] Future Scheduled 2020-12-15 COVID-19 VACCINE (3 - [facility] Test 00:00:00 Pfizer risk series) Medical Center [code = COVID-19 VACCINE (3 - Pfizer risk series)] Future Scheduled 2020-12-15 COVID-19 VACCINE (3 - [facility] Test 00:00:00 Pfizer risk series) Medical Center [code = COVID-19 VACCINE (3 - Pfizer risk series)] Future Scheduled 2020-12-15 COVID-19 VACCINE (3 - [facility] Test 00:00:00 Pfizer risk series) Medical Center [code = COVID-19 VACCINE (3 - Pfizer risk series)] Future Scheduled 2020-08-[address] [facility] Test 00:00:00 (12+) [code = Medical Center DEPRESSION SCREENING (12+)] Future Scheduled 2020-08-[address] [facility] Test 00:00:00 (12+) [code = Medical Center DEPRESSION SCREENING (12+)] Future Scheduled 2020-08-[address] [facility] Test 00:00:00 (12+) [code = Medical Center DEPRESSION SCREENING (12+)] Diagnostic Test 2020-03-30 CT NEEDLE BIOPSY LIVER Expected: Vance Loya Pending 00:00:00 [code = 17873] 03/30/2020, of Medicine Expires: 03/23/2021 Diagnostic Test 2019-06-07 CT CHEST ABDOMEN PELVIS Expected: Maria Elena Loya Pending 00:00:00 W CONTRAST [code = 06/07/2019, [place] [address]-6] Expires: 04/26/2020 Future Scheduled 2016-01-[address] [facility] Test 00:00:00 WELLNESS (YEAR 2 or Medical Center FIRST YEAR if no IPPE) [code = MEDICARE ANNUAL WELLNESS (YEAR 2 or FIRST YEAR if no IPPE)] Future Scheduled 2016-01-[address] [facility] Test 00:00:00 WELLNESS (YEAR 2 or Medical Center FIRST YEAR if no IPPE) [code = MEDICARE ANNUAL WELLNESS (YEAR 2 or FIRST YEAR if no IPPE)] Future Scheduled 2016-01-[address] [facility] Test 00:00:00 WELLNESS (YEAR 2 or Medical Center FIRST YEAR if no IPPE) [code = MEDICARE ANNUAL WELLNESS (YEAR 2 or FIRST YEAR if no IPPE)] Future Scheduled 2016-01-[address] [facility] Test 00:00:00 WELLNESS (YEAR 2 or Medical Center FIRST YEAR if no IPPE) [code = MEDICARE ANNUAL WELLNESS (YEAR 2 or FIRST YEAR if no IPPE)] Future Scheduled 2016-01-[address] [facility] Test 00:00:00 WELLNESS (YEAR 2 or Medical Center FIRST YEAR if no IPPE) [code = MEDICARE ANNUAL WELLNESS (YEAR 2 or FIRST YEAR if no IPPE)] Future Scheduled 2016-01-[address] [facility] Test 00:00:00 WELLNESS (YEAR 2 or Medical Center FIRST YEAR if no IPPE) [code = MEDICARE ANNUAL WELLNESS (YEAR 2 or FIRST YEAR if no IPPE)] Future Scheduled 2016-01-[address] [facility] Test 00:00:00 WELLNESS (YEAR 2 or Medical Center FIRST YEAR if no IPPE) [code = MEDICARE ANNUAL WELLNESS (YEAR 2 or FIRST YEAR if no IPPE)] Future Scheduled 2016-01-[address] [facility] Test 00:00:00 WELLNESS (YEAR 2 or Medical Center FIRST YEAR if no IPPE) [code = MEDICARE ANNUAL WELLNESS (YEAR 2 or FIRST YEAR if no IPPE)] Future Scheduled 2016-01-[address] [facility] Test 00:00:00 WELLNESS (YEAR 2 or Medical Center FIRST YEAR if no IPPE) [code = MEDICARE ANNUAL WELLNESS (YEAR 2 or FIRST YEAR if no IPPE)] Future Scheduled 2016-01-[address] [facility] Test 00:00:00 WELLNESS (YEAR 2 or Medical Center FIRST YEAR if no IPPE) [code = MEDICARE ANNUAL WELLNESS (YEAR 2 or FIRST YEAR if no IPPE)] Future Scheduled 2016-01-[address] [facility] Test 00:00:00 WELLNESS (YEAR 2 or Medical Center FIRST YEAR if no IPPE) [code = MEDICARE ANNUAL WELLNESS (YEAR 2 or FIRST YEAR if no IPPE)] Future Scheduled 2016-01-[address] [facility] Test 00:00:00 WELLNESS (YEAR 2 or Medical Center FIRST YEAR if no IPPE) [code = MEDICARE ANNUAL WELLNESS (YEAR 2 or FIRST YEAR if no IPPE)] Future Scheduled 2012 SHINGLES VACCINES ([address] [facility] Test 00:00:00 2) [code = SHINGLES Medical Center VACCINES (1 of 2)] Future Scheduled 2012 SHINGLES VACCINES ([address] [facility] Test 00:00:00 2) [code = SHINGLES Medical Center VACCINES (1 of 2)] Future Scheduled 2012 SHINGLES VACCINES ([address] [facility] Test 00:00:00 2) [code = SHINGLES Medical Center VACCINES (1 of 2)] Future Scheduled 2012 SHINGLES VACCINES ([address] [facility] Test 00:00:00 2) [code = SHINGLES Medical Center VACCINES (1 of 2)] Future Scheduled 2012 SHINGLES VACCINES ([address] [facility] Test 00:00:00 2) [code = SHINGLES Medical Center VACCINES (1 of 2)] Future Scheduled 2012 SHINGLES VACCINES ([address] [facility] Test 00:00:00 2) [code = SHINGLES Medical Center VACCINES (1 of 2)] Future Scheduled 2012 SHINGLES VACCINES ([address] [facility] Test 00:00:00 2[facility] Future Scheduled 2012 SHINGLES VACCINES ([address] [facility] Test 00:00:00 2) [facility] Future Scheduled 2012 SHINGLES VACCINES ([address] [facility] Test 00:00:00 2) [facility] Future Scheduled 1997 Lipid panel (procedure) [facility] Test 00:00:00 [code = 18896364] Medical Ce nter Future Scheduled 1997 Lipid panel (procedure) [facility] Test 00:00:00 [code = 35453816] Medical Ce nter Future Scheduled 1997 Lipid panel (procedure) [facility] Test 00:00:00 [code = 82908173] Medical Ce nter Future Scheduled 1997 Lipid panel (procedure) [facility] Test 00:00:00 [code = 76650490] Medical Ce nter Future Scheduled 1997 Lipid panel (procedure) [facility] Test 00:00:00 [code = 38754892] Medical Ce nter Future Scheduled 1997 Lipid panel (procedure) [facility] Test 00:00:00 [code = 08424941] Medical Ce nter Future Scheduled 1997 Lipid panel (procedure) [facility] Test 00:00:00 [code = 80690096] Medical Ce nter Future Scheduled 1997 Lipid panel (procedure) [facility] Test 00:00:00 [code = 74742131] Medical Ce nter Future Scheduled 1997 Lipid panel (procedure) [facility] Test 00:00:00 [code = 01640655] Medical Ce nter Future Scheduled 1997 Lipid panel (procedure) [facility] Test 00:00:00 [code = 19265689] Medical Ce nter Future Scheduled 1997 Lipid panel (procedure) [facility] Test 00:00:00 [code = 78443505] Medical Ce nter Future Scheduled 1997 Lipid panel (procedure) [facility] Test 00:00:00 [code = 33579185] Medical Ce nter Future Scheduled 1981 DTAP/TDAP/TD VACCINES [facility] Test 00:00:00 (1 - Tdap) [code = Medical C enter DTAP/TDAP/TD VACCINES (1 - Tdap)] Future Scheduled 1981 DTAP/TDAP/TD VACCINES [facility] Test 00:00:00 (1 - Tdap) [code = Medical C enter DTAP/TDAP/TD VACCINES (1 - Tdap)] Future Scheduled 1981 DTAP/TDAP/TD VACCINES [facility] Test 00:00:00 (1 - Tdap) [code = Medical C enter DTAP/TDAP/TD VACCINES (1 - Tdap)] Future Scheduled 1981 DTAP/TDAP/TD VACCINES [facility] Test 00:00:00 (1 - Tdap) [code = Medical C enter DTAP/TDAP/TD VACCINES (1 - Tdap)] Future Scheduled 1981 DTAP/TDAP/TD VACCINES [facility] 00:00:00 (1 - Tdap) [code = Medical C enter DTAP/TDAP/TD VACCINES (1 - Tdap)] Future Scheduled 1981 DTAP/TDAP/TD VACCINES [facility] 00:00:00 (1 - Tdap) [code = Medical C enter DTAP/TDAP/TD VACCINES (1 - Tdap)] Future Scheduled 1981 DTAP/TDAP/TD VACCINES [facility] 00:00:00 (1 - Tdap) [code = Medical C enter DTAP/TDAP/TD VACCINES (1 - Tdap)] Future Scheduled 1981 DTAP/TDAP/TD VACCINES [facility] 00:00:00 (1 - Tdap) [code = Medical C enter DTAP/TDAP/TD VACCINES (1 - Tdap)] Future Scheduled 1981 DTAP/TDAP/TD VACCINES [facility] 00:00:00 (1 - Tdap) [code = Medical C enter DTAP/TDAP/TD VACCINES (1 - Tdap)] Future Scheduled 1981 DTAP/TDAP/TD VACCINES [facility] 00:00:00 (1 - Tdap) [code = Medical C enter DTAP/TDAP/TD VACCINES (1 - Tdap)] Future Scheduled 1981 SHINGLES VACCINES ([address] [facility] Test 00:00:00 2) [code = [facility] VACCINES (1 of 2)] Future Scheduled 1981 DTAP/TDAP/TD VACCINES [facility] 00:00:00 (1 - Tdap) [code = Medical C enter DTAP/TDAP/TD VACCINES (1 - Tdap)] Future Scheduled 1981 SHINGLES VACCINES ([address] [facility] Test 00:00:00 2) [code = [facility] VACCINES (1 of 2)] Future Scheduled 1981 DTAP/TDAP/TD VACCINES [facility] 00:00:00 (1 - Tdap) [code = Medical C enter DTAP/TDAP/TD VACCINES (1 - Tdap)] Future Scheduled 1981 SHINGLES VACCINES ([address] [facility] Test 00:00:00 2) [code = [facility]ING[facility] VACCINES (1 of 2)] Future Scheduled 1980 HEPATITIS C [facility]CRE[facility]ING [facility] 00:00:00 [code = HEPATITIS C Medical Center SCREENING] Future Scheduled 1980 HEPATITIS C [facility]CRE[facility] 00:00:00 [code = HEPATITIS C Medical Center SCREENING] Future Scheduled 1980 HEPATITIS C [facility]CRE[facility] 00:00:00 [code = HEPATITIS C Medical Center SCREENING] Future Scheduled 1980 HEPATITIS C [facility]CRE[facility] 00:00:00 [code = HEPATITIS C Medical Center SCREENING] Future Scheduled 1980 HEPATITIS C [facility] 00:00:00 [code = HEPATITIS C Medical Center SCREENING] Future Scheduled 1980 HEPATITIS C [facility] 00:00:00 [code = HEPATITIS C Medical Center SCREENING] Future Scheduled 1980 HEPATITIS C [facility] 00:00:00 [code = HEPATITIS C Medical Center SCREENING] Future Scheduled 1980 HEPATITIS C [facility] 00:00:00 [code = HEPATITIS C Medical Center SCREENING] Future Scheduled 1980 HEPATITIS C [facility] 00:00:00 [code = HEPATITIS C Medical Center SCREENING] Future Scheduled 1980 HEPATITIS C [facility] 00:00:00 [code = HEPATITIS C Medical Center SCREENING] Future Scheduled 1980 HEPATITIS C [facility] 00:00:00 [code = HEPATITIS C Medical Center SCREENING] Future Scheduled 1980 HEPATITIS C [facility]00 [code [facility]] Future Scheduled [address] [facility] 00:00:00 0-64 YRS (1 of 3 - Medical C enter PCV13) [code = PNEUMOCOCCAL VACCINE 0-64 YRS (1 of 3 - PCV13)] Future Scheduled [address] [facility] 00:00:00 0-64 YRS (1 of 3 - Medical C enter PCV13) [code = PNEUMOCOCCAL VACCINE 0-64 YRS (1 of 3 - PCV13)] Future Scheduled [address] [facility] 00:00:00 0-64 YRS (1 of 3 - Medical C enter PCV13) [code = PNEUMOCOCCAL VACCINE 0-64 YRS (1 of 3 - PCV13)] Future Scheduled [address] [facility] 00:00:00 0-64 YRS (1 - PCV) Medical C enter [code = PNEUMOCOCCAL VACCINE 0-64 YRS (1 - PCV)] Future Scheduled [address] [facility] 00:00:00 0-64 YRS (1 - PCV) Medical C enter [code = PNEUMOCOCCAL VACCINE 0-64 YRS (1 - PCV)] Future Scheduled [address] [facility] 00:00:00 0-64 YRS (1 - PCV) Medical C enter [code = PNEUMOCOCCAL VACCINE 0-64 YRS (1 - PCV)] Future Scheduled [address] [facility] 00:00:00 0-64 YRS (1 - PCV) Medical C enter [code = PNEUMOCOCCAL VACCINE 0-64 YRS (1 - PCV)] Future Scheduled [address] [facility] 00:00:00 0-64 YRS (1 - PCV) Medical C enter [code = PNEUMOCOCCAL VACCINE 0-64 YRS (1 - PCV)] Future Scheduled [address] [facility] 00:00:00 0-64 YRS (1 - PCV) Medical C enter [code = PNEUMOCOCCAL VACCINE 0-64 YRS (1 - PCV)] Future Scheduled [address] [facility] 00:00:00 0-64 YRS (1 - PCV) Medical C enter [code = PNEUMOCOCCAL VACCINE 0-64 YRS (1 - PCV)] Future Scheduled [address] [facility] 00:00:00 0-64 YRS (1 - PCV) Medical C enter [code = PNEUMOCOCCAL VACCINE 0-64 YRS (1 - PCV)] Future Scheduled [address] [facility] 00:00:00 0-64 YRS (1 - PCV) Medical C enter [code = PNEUMOCOCCAL VACCINE 0-64 YRS (1 - PCV)] Future Scheduled 1962 Screening for malignant [facility] 00:00:00 neoplasm of colon Medical Ce nter (procedure) [code = [id number]] Future Scheduled 1962 Screening for malignant [facility] 00:00:00 neoplasm of colon Medical Ce nter (procedure) [code = 067361402] Future Scheduled 1962 Screening for malignant [facility] 00:00:00 neoplasm of colon Medical Ce nter (procedure) [code = 650377462] Future Scheduled 1962 CT Colonography (combo) [facility] 00:00:00 [code = CT Colonography [facility] (combo)] Future Scheduled 1962 Screening for malignant [facility] 00:00:00 neoplasm of colon Medical Ce nter (procedure) [code = 613096785] Future Scheduled 1962 Screening for malignant [facility] 00:00:00 neoplasm of colon Medical Ce nter (procedure) [code = 839209673] Future Scheduled 1962 Screening for malignant [facility] 00:00:00 neoplasm of colon Medical Ce nter (procedure) [code = 195282880] Future Scheduled 1962 Screening for malignant [facility] 00:00:00 neoplasm of colon Medical Ce nter (procedure) [code = 979605540] Future Scheduled 1962 Sigmoidoscopy [code = [facility]] Medical Cent[facility] r Future Scheduled 1962 CT Colonography (combo) [facility] 00:00:00 [code = CT Colonography [facility] (combo)] Future Scheduled 1962 Screening for malignant [facility] 00:00:00 neoplasm of colon Medical Ce nter (procedure) [code = 198671644] Future Scheduled 1962 Screening for malignant [facility] 00:00:00 neoplasm of colon Medical Ce nter (procedure) [code = 595051267] Future Scheduled 1962 Screening for malignant [facility] 00:00:00 neoplasm of colon Medical Ce nter (procedure) [code = 320078445] Future Scheduled 1962 Screening for malignant [facility] 00:00:00 neoplasm of colon Medical Ce nter (procedure) [code = 031204457] Future Scheduled 1962 Sigmoidoscopy [code = [facility] S[facility]] Medical Cente r Future Scheduled 1962 CT Colonography (combo) [facility] 00:00:00 [code = CT Colonography [facility] (combo)] Future Scheduled 1962 Screening for malignant [facility] 00:00:00 neoplasm of colon Medical Ce nter (procedure) [code = 787108469] Future Scheduled 1962 Screening for malignant [facility] 00:00:00 neoplasm of colon Medical Ce nter (procedure) [code = 961072231] Future Scheduled 1962 Screening for malignant [facility] 00:00:00 neoplasm of colon Medical Ce nter (procedure) [code = 010305940] Future Scheduled 1962 Screening for malignant [facility] 00:00:00 neoplasm of colon Medical Ce nter (procedure) [code = 701799844] Future Scheduled 1962 Sigmoidoscopy [code = [facility]] Medical Cente r Future Scheduled 1962 CT Colonography (combo) [facility] 00:00:00 [code = [facility])] Future Scheduled 1962 Screening for malignant [facility] 00:00:00 neoplasm of colon Medical Ce nter (procedure) [code = 602743299] Future Scheduled 1962 Screening for malignant [facility] 00:00:00 neoplasm of colon Medical Ce nter (procedure) [code = 612075576] Future Scheduled 1962 Screening for malignant [facility] 00:00:00 neoplasm of colon Medical Ce nter (procedure) [code = 794879186] Future Scheduled 1962 Screening for malignant [facility] 00:00:00 neoplasm of colon Medical Ce nter (procedure) [code = 371600906] Future Scheduled 1962 Sigmoidoscopy [code = [facility] S[facility]oscopy] Medical Stefane r Future Scheduled 1962 CT Colonography (combo) [facility] 00:00:00 [code = CT Colonography [facility] (combo)] Future Scheduled 1962 Screening for malignant [facility] 00:00:00 neoplasm of colon Medical Ce nter (procedure) [code = 977282388] Future Scheduled 1962 Screening for malignant [facility] 00:00:00 neoplasm of colon Medical Ce nter (procedure) [code = 658453374] Future Scheduled 1962 Screening for malignant [facility] 00:00:00 neoplasm of colon Medical Ce nter (procedure) [code = 471806366] Future Scheduled 1962 Screening for malignant [facility] 00:00:00 neoplasm of colon Medical Ce nter (procedure) [code = 238671368] Future Scheduled 1962 Sigmoidoscopy [facility]code = [facility] (combo) [facility] 00:00:00 [code = [facility] ([facility])] Future Scheduled 1962 Screening for malignant [facility] 00:00:00 neoplasm of colon Medical Ce nter (procedure) [code = 960740370] Future Scheduled 1962 Screening for malignant [facility] 00:00:00 neoplasm of colon Medical Ce nter (procedure) [code = 507863619] Future Scheduled 1962 Screening for malignant [facility] 00:00:00 neoplasm of colon Medical Ce nter (procedure) [code = 337241948] Future Scheduled 1962 Screening for malignant [facility] 00:00:00 neoplasm of colon Medical Ce nter (procedure) [code = 399188406] Future Scheduled 1962 Sigmoidoscopy [code = [facility] S[facility]oscopy] Medical Cente r Future Scheduled 1962 CT Colonography (combo) [facility] 00:00:00 [code = CT Colonography [facility] (combo)] Future Scheduled 1962 Screening for malignant [facility] 00:00:00 neoplasm of colon Medical Ce nter (procedure) [code = 524190987] Future Scheduled 1962 Screening for malignant [facility] 00:00:00 neoplasm of colon Medical Ce nter (procedure) [code = 141040241] Future Scheduled 1962 Screening for malignant [facility] 00:00:00 neoplasm of colon Medical Ce nter (procedure) [code = 547679294] Future Scheduled 1962 Screening for malignant [facility] 00:00:00 neoplasm of colon Medical Ce nter (procedure) [code = 596987008] Future Scheduled 1962 Sigmoidoscopy [code = [facility] S[facility]oidoscopy] Medical Cente r Future Scheduled 1962 CT Colonography (combo) [facility] 00:00:00 [code = [facility])] Future Scheduled 1962 Screening for malignant [facility] 00:00:00 neoplasm of colon Medical Ce nter (procedure) [code = 866211915] Future Scheduled 1962 Screening for malignant [facility] 00:00:00 neoplasm of colon Medical Ce nter (procedure) [code = 930871780] Future Scheduled 1962 Screening for malignant [facility] 00:00:00 neoplasm of colon Medical Ce nter (procedure) [code = 527997069] Future Scheduled 1962 Screening for malignant [facility] 00:00:00 neoplasm of colon Medical Ce nter (procedure) [code = 683376733] Future Scheduled 1962 Sigmoidoscopy [facility]code [facility] S[facility]] Medical Cente r Future Scheduled 1962 CT Colonography (combo) [facility] 00:00:00 [code = CT Colonography [facility] (combo)] Future Scheduled 1962 Screening for malignant [facility] 00:00:00 neoplasm of colon Medical Ce nter (procedure) [code = 609480455] Future Scheduled 1962 Screening for malignant [facility] 00:00:00 neoplasm of colon Medical Ce nter (procedure) [code = 653417815] Future Scheduled 1962 Screening for malignant [facility] 00:00:00 neoplasm of colon Medical Ce nter (procedure) [code = 855882167] Future Scheduled 1962 Screening for malignant [facility] 00:00:00 neoplasm of colon Medical Ce nter (procedure) [code = 916590754] Future Scheduled 1962 Sigmoidoscopy [facility]code [facility] S[facility]] Medical Cente r Future Scheduled TETANUS SHOT (ADULT) [facility] Test [code = TETANUS SHOT of Medi cine (ADULT)] Future Scheduled Diabetic foot [facility] Test examination of Medicine (regime/therapy) [code = 941722722] Future Scheduled ANNUAL DIABETIC [facility] Test RETINOPATHY SCREENING of Med icine [code = ANNUAL DIABETIC RETINOPATHY SCREENING] Future Scheduled BMI FOLLOW UP PLAN [employer] Test [code = BMI FOLLOW UP of Med icine PLAN] Future [facility] = [facility]PAT[facility]IS C of Medic ine SCREENING] Future Scheduled HIV SCREENING [code = [facility] HIV SCREENING] of Medicine Future Scheduled MEDICARE AWV (Initial) [employer] [facility] [code = MEDICARE AWV of Medi cine (Initial)] Future Scheduled FLU VACCINE > 6 MONTHS [employer] [facility] [code = FLU VACCINE > 6 of M edicine MONTHS] Future Scheduled HEPATITIS PANEL,ACUTE Ordered: [facility] W/REFLEX [code = NOCPT] 09/09/2019 of M edicine Future Scheduled COLON CANCER SCREENING: [facility] [employer] Test COLONOSCOPY [code = of Medic ine COLON CANCER SCREENING: COLONOSCOPY] Future Scheduled TETANUS SHOT (ADULT) [employer] Test [code = TETANUS SHOT of Medi cine (ADULT)] Future Scheduled Diabetic foot [facility] examination of Medicine (regime/therapy) [code = 234434976] Future Scheduled ANNUAL DIABETIC [facility] Test RETINOPATHY SCREENING of Med icine [code = ANNUAL DIABETIC RETINOPATHY SCREENING] Future Scheduled BMI FOLLOW UP PLAN [employer] Test [code = BMI FOLLOW UP of Med icine PLAN] Future Scheduled MEDICARE AWV (Initial) [employer] Test [code = MEDICARE AWV of Medi cine (Initial)] Future Scheduled FLU VACCINE > 6 MONTHS [employer] Test [code = FLU VACCINE > 6 of M edicine MONTHS] Future Scheduled COLON CANCER SCREENING: [facility] [employer] Test COLONOSCOPY [code = of Medic ine COLON CANCER SCREENING: COLONOSCOPY] Future Scheduled TETANUS SHOT (ADULT) [employer] [facility] [code = TETANUS SHOT of Medi cine (ADULT)] Future Scheduled Diabetic foot [facility] Test examination of Medicine (regime/therapy) [code = 515803892] Future Scheduled ANNUAL DIABETIC [facility] RETINOPATHY SCREENING of Med icine [code = ANNUAL DIABETIC RETINOPATHY SCREENING] Future Scheduled BMI FOLLOW UP PLAN [employer] Test [code = BMI FOLLOW UP of Med icine PLAN] Future Scheduled MEDICARE AWV (Initial) [employer] [facility] [code = MEDICARE AWV of Medi cine (Initial)] Future Scheduled FLU VACCINE > 6 MONTHS [employer] [facility] [code = FLU VACCINE > 6 of M edicine MONTHS] Future Scheduled CBC W/AUTO DIFF WITH Ordered: [facility] Test PLATELETS [code = 10/28/2019 of Medicin e 72778-0] Future Scheduled COMPREHENSIVE METABOLIC Ordered: [facility] Test PANEL [code = 00692-6] 10/28/2019 of Me dicine Future Scheduled MAGNESIUM [code = Ordered: [facility] Test 89425-7] 10/28/2019 of Medicine Future Scheduled COLON CANCER SCREENING: [facility] [employer] [facility] COLONOSCOPY [code = of Medic mandi COLON CANCER SCREENING: COLONOSCOPY] Future Scheduled TETANUS SHOT (ADULT) [employer] [facility] [code = TETANUS SHOT of Medi cine (ADULT)] Future Scheduled Diabetic foot [facility] Test examination of Medicine (regime/therapy) [code = 194048080] Future Scheduled ANNUAL DIABETIC [facility] Test RETINOPATHY SCREENING of Med icine [code = ANNUAL DIABETIC RETINOPATHY SCREENING] Future Scheduled BMI FOLLOW UP PLAN [employer] Test [code = BMI FOLLOW UP of Med icine PLAN] Future Scheduled MEDICARE AWV (Initial) [employer] Test [code = MEDICARE AWV of Medi cine (Initial)] Future Scheduled FLU VACCINE > 6 MONTHS [employer] [facility] [code = FLU VACCINE > 6 of M edicine MONTHS] Future Scheduled TSH [code = 75693-2] Ordered: [employer] [facility] 12/02/2019 of Medicine Future Scheduled CBC W/AUTO DIFF WITH Ordered: [employer] [facility] PLATELETS [code = 12/02/2019 of Medicin e 51453-9] Future Scheduled COMPREHENSIVE METABOLIC Ordered: [employer] Test PANEL [code = 33109-0] 12/02/2019 of Va dicine Future Scheduled MAGNESIUM [code = Ordered: [facility] Test 52207-8] 12/02/2019 of Medicine Future Scheduled COLON CANCER SCREENING: [facility] [employer] [facility] COLONOSCOPY [code = of Alysa raymond COLON CANCER SCREENING: COLONOSCOPY] Future Scheduled TETANUS SHOT (ADULT) [employer] Test [code = TETANUS SHOT of Medi cine (ADULT)] Future Scheduled Diabetic foot [facility] examination of Medicine (regime/therapy) [code = 973936740] Future Scheduled ANNUAL DIABETIC [facility] RETINOPATHY SCREENING of Med icine [code = ANNUAL DIABETIC RETINOPATHY SCREENING] Future Scheduled BMI FOLLOW UP PLAN [employer] Test [code = BMI FOLLOW UP of Med icine PLAN] Future Scheduled MEDICARE AWV (Initial) [employer] Test [code = MEDICARE AWV of Medi cine (Initial)] Future Scheduled FLU VACCINE > 6 MONTHS [employer] Test [code = FLU VACCINE > 6 of M edicine MONTHS] Future Scheduled CBC W/AUTO DIFF WITH Ordered: [employer] Test PLATELETS [code = 02/10/2020 of Medicin e 01494-9] Future Scheduled COMPREHENSIVE METABOLIC Ordered: [employer] Test PANEL [code = 09566-5] 02/10/2020 of Me dicine Future Scheduled MAGNESIUM [code = Ordered: [facility] Test 53596-6] 02/10/2020 of Medicine Future Scheduled TSH [code = 42185-1] Ordered: [employer] Test 02/10/2020 of Medicine Future Scheduled COLON CANCER SCREENING: [facility] Test COLONOSCOPY [code = of Medic ine COLON CANCER SCREENING: COLONOSCOPY] Future Scheduled TETANUS SHOT (ADULT) [employer] Test [code = TETANUS SHOT of Medi cine (ADULT)] Future Scheduled Diabetic foot [facility] Test examination of Medicine (regime/therapy) [code = 566268474] Future Scheduled ANNUAL DIABETIC [facility] Test RETINOPATHY SCREENING of Med icine [code = ANNUAL DIABETIC RETINOPATHY SCREENING] Future Scheduled BMI FOLLOW UP PLAN [employer] Test [code = BMI FOLLOW UP of Med icine PLAN] Future Scheduled MEDICARE AWV (Initial) [employer] Test [code = MEDICARE AWV of Medi cine (Initial)] Future Scheduled FLU VACCINE > 6 MONTHS [employer] Test [code = FLU VACCINE > 6 of M edicine MONTHS] Future Scheduled CBC W/AUTO DIFF WITH Ordered: [facility] [employer] Test PLATELETS [code = 03/23/2020 of Medicin e 82623-1] Future Scheduled COMPREHENSIVE METABOLIC Ordered: [facility] Test PANEL [code = 93031-3] 03/23/2020 of Me dicine Future Scheduled MAGNESIUM [code = Ordered: [facility] Test 75661-0] 03/23/2020 of Medicine Future Scheduled COLON CANCER SCREENING: [facility] Test COLONOSCOPY [code = of Medic ine COLON CANCER SCREENING: COLONOSCOPY] Future Scheduled TETANUS SHOT (ADULT) [employer] Test [code = TETANUS SHOT of Medi cine (ADULT)] Future Scheduled Diabetic foot [facility] examination of Medicine (regime/therapy) [code = 204498729] Future Scheduled ANNUAL DIABETIC [facility] Test RETINOPATHY SCREENING of Med icine [code = ANNUAL DIABETIC RETINOPATHY SCREENING] Future Scheduled BMI FOLLOW UP PLAN [employer] Test [code = BMI FOLLOW UP of Med icine PLAN] Future Scheduled ZOSTER VACCINE (1 of 2) [facility] Test [code = ZOSTER VACCINE of Me dicine (1 of 2)] Future Scheduled MEDICARE AWV (Initial) [employer] Test [code = MEDICARE AWV of Medi cine (Initial)] Future Scheduled FLU VACCINE > 6 MONTHS [employer] Test [code = FLU VACCINE > 6 of M edicine MONTHS] Future Scheduled COLON CANCER SCREENING: [facility] [employer] Test COLONOSCOPY [code = of Medic ine COLON CANCER SCREENING: COLONOSCOPY] Future Scheduled TETANUS SHOT (ADULT) [employer] Test [code = TETANUS SHOT of Medi cine (ADULT)] Future Scheduled Diabetic foot [facility] examination of Medicine (regime/therapy) [code = 124204664] Future Scheduled ANNUAL DIABETIC [facility] Test RETINOPATHY SCREENING of Med icine [code = ANNUAL DIABETIC RETINOPATHY SCREENING] Future Scheduled BMI FOLLOW UP PLAN [employer] Test [code = BMI FOLLOW UP of Med icine PLAN] Future Scheduled ZOSTER VACCINE (1 of 2) [facility] Test [code = ZOSTER VACCINE of Me dicine (1 of 2)] Future Scheduled MEDICARE IPPE (WELCOME [employer] [facility] TO MEDICARE) [code = of Medi cine MEDICARE IPPE (WELCOME TO MEDICARE)] Future Scheduled FLU VACCINE > 6 MONTHS [employer] Test [code = FLU VACCINE > 6 of M edicine MONTHS] Future Scheduled TEMPUS XT TISSUE NGS Ordered: [employer] Test [code = 78987913] 05/25/2020 of Medicin e Future Scheduled TSH [code = 15263-1] Ordered: [employer] Test 05/27/2020 of Medicine Future Scheduled COLON CANCER SCREENING: [facility] [employer] Test COLONOSCOPY [code = of Medic ine COLON CANCER SCREENING: COLONOSCOPY] Future Scheduled TETANUS SHOT (ADULT) [employer] Test [code = TETANUS SHOT of Medi cine (ADULT)] Future Scheduled Diabetic foot [facility] Test examination of Medicine (regime/therapy) [code = 431256932] Future Scheduled ANNUAL DIABETIC [facility] Test RETINOPATHY SCREENING of Med icine [code = ANNUAL DIABETIC RETINOPATHY SCREENING] Future Scheduled BMI FOLLOW UP PLAN [employer] Test [code = BMI FOLLOW UP of Med icine PLAN] Future Scheduled ZOSTER VACCINE (1 of 2) [facility] Test [code = ZOSTER VACCINE of Me dicine (1 of 2)] Future Scheduled MEDICARE IPPE (WELCOME [employer] [facility] TO MEDICARE) [code = of Medi cine MEDICARE IPPE (WELCOME TO MEDICARE)] Future Scheduled FLU VACCINE > 6 MONTHS [employer] Test [code = FLU VACCINE > 6 of M edicine MONTHS] Future Scheduled CBC W/AUTO DIFF WITH Ordered: [employer] Test PLATELETS [code = 07/24/2020 of Medicin e 41217-2] Future Scheduled COMPREHENSIVE METABOLIC Ordered: [facility] [employer] Test PANEL [code = 36852-1] 07/24/2020 of Me dicine Future Scheduled MAGNESIUM [code = Ordered: [facility] [employer] Test 80871-1] 07/24/2020 of Medicine Future Scheduled TSH [code = 40347-4] Ordered: [employer] Test 07/24/2020 of Medicine Future Scheduled COLON CANCER SCREENING: [facility] Test COLONOSCOPY [code = of Medic ine COLON CANCER SCREENING: COLONOSCOPY] Future Scheduled TETANUS SHOT (ADULT) [employer] Test [code = TETANUS SHOT of Medi cine (ADULT)] Future Scheduled Diabetic foot [facility] Test examination of Medicine (regime/therapy) [code = 095019553] Future Scheduled ANNUAL DIABETIC [facility] Test RETINOPATHY SCREENING of Med icine [code = ANNUAL DIABETIC RETINOPATHY SCREENING] Future Scheduled [facility] PL[facility] [employer] [facility] [code = BMI FOLLOW UP of Med icine PLAN] Future Scheduled ZOSTER VACCINE (1 of 2) [facility] Test [code = ZOSTER VACCINE of Me dicine (1 of 2)] Future Scheduled MEDICARE IPPE (WELCOME [facility] TO MEDICARE) [code = of Medi cine MEDICARE IPPE (WELCOME TO MEDICARE)] Future Scheduled FLU VACCINE > 6 MONTHS [employer] Test [code = FLU VACCINE > 6 of M edicine MONTHS] Future Scheduled COMPREHENSIVE METABOLIC Ordered: [facility] Test PANEL [code = 86659-1] 10/02/2020 of Me dicine Future Scheduled CBC W/AUTO DIFF WITH Ordered: [facility] [employer] Test PLATELETS [code = 10/02/2020 of Medicin e 84227-5] Future Scheduled MAGNESIUM [code = Ordered: [facility] [employer] Test 37193-0] 10/02/2020 of Medicine Future Scheduled COLON CANCER SCREENING: [facility] Test COLONOSCOPY [code = of Medic ine COLON CANCER SCREENING: COLONOSCOPY] Future Scheduled COVID-19 Vaccine [facility] Test Evaluation [code = of Medici ne COVID-19 Vaccine Evaluation] Future Scheduled TETANUS SHOT (ADULT) [employer] Test [code = TETANUS SHOT of Medi cine (ADULT)] Future Scheduled Diabetic foot [facility] Test examination of Medicine (regime/therapy) [code = 127659331] Future Scheduled ANNUAL DIABETIC [facility] Test RETINOPATHY SCREENING of Med icine [code = ANNUAL DIABETIC RETINOPATHY SCREENING] Future Scheduled BMI FOLLOW UP PLAN [employer] Test [code = BMI FOLLOW UP of Med icine PLAN] Future Scheduled ZOSTER VACCINE (1 of 2) [facility] Test [code = ZOSTER VACCINE of Me dicine (1 of 2)] Future Scheduled MEDICARE IPPE (WELCOME [employer] [facility] TO MEDICARE) [code = of Medi cine MEDICARE IPPE (WELCOME TO MEDICARE)] Future Scheduled FLU VACCINE > 6 MONTHS [employer] Test [code = FLU VACCINE > 6 of M edicine MONTHS] Future Scheduled Screening for malignant [facility] Test neoplasm of colon of Medicin e (procedure) [code = 825253452] Future Scheduled TETANUS SHOT (ADULT) [employer] [facility] [code = TETANUS SHOT of Medi cine (ADULT)] Future Scheduled Diabetic foot [facility] Test examination of Medicine (regime/therapy) [code = 539607456] Future Scheduled ANNUAL DIABETIC [facility] Test RETINOPATHY SCREENING of Med icine [code = ANNUAL DIABETIC RETINOPATHY SCREENING] Future Scheduled BMI FOLLOW UP PLAN [employer] Test [code = BMI FOLLOW UP of Med icine PLAN] Future Scheduled ZOSTER VACCINE (1 of 2) [facility] Test [code = ZOSTER VACCINE of Me dicine (1 of 2)] Future Scheduled MEDICARE AWV (Initial) [employer] Test [code = MEDICARE AWV of Medi cine (Initial)] Future Scheduled FLU VACCINE > 6 MONTHS [employer] Test [code = FLU VACCINE > 6 of M edicine MONTHS] Future Scheduled CBC W/AUTO DIFF WITH Ordered: [facility] [employer] Test PLATELETS [code = 04/26/2019 of Medicin e 44947-2] Future Scheduled COMPREHENSIVE METABOLIC Ordered: [facility] [employer] Test PANEL [code = 91466-6] 04/26/2019 of Me dicine Future Scheduled MAGNESIUM [code = Ordered: [facility] [employer] [facility] 80089-6] 04/26/2019 of Medicine Future Scheduled TSH [code = 65717-0] Ordered: [employer] [facility] 04/26/2019 of Medicine Future Scheduled COLON CANCER SCREENING: [facility] [employer] Test COLONOSCOPY [code = of Medic ine COLON CANCER SCREENING: COLONOSCOPY] Future Scheduled MEDICARE AWV [code = [employer] MEDICARE AWV] of Medicine Future Scheduled TETANUS SHOT (ADULT) [employer] Test [code = TETANUS SHOT of Medi cine (ADULT)] Future Scheduled Diabetic foot [facility] [employer] Test examination of Medicine (regime/therapy) [code = 531169924] Future Scheduled ANNUAL DIABETIC [facility] [employer]lege Test RETINOPATHY SCREENING of Med icine [code = ANNUAL DIABETIC RETINOPATHY SCREENING] Future Scheduled BMI FOLLOW UP PLAN [employer] [code = BMI FOLLOW UP of Med icine PLAN] Future Scheduled HEPATITIS C SCREENING [employer] [code = HEPATITIS C of Medic ine SCREENING] Future Scheduled HIV SCREENING [code = [employer] HIV SCREENING] of Medicine Future Scheduled FLU VACCINE > 6 MONTHS [employer] [code = FLU VACCINE > 6 of M edicine MONTHS] Future Scheduled CBC W/AUTO DIFF WITH Ordered: [facility] [place] [employer] Test PLATELETS [code = 09/02/2019 of Medicin e 87065-7] Future Scheduled COMPREHENSIVE METABOLIC Ordered: [facility] [employer] Test PANEL [code = 80709-8] 09/02/2019 of Me dicine Future Scheduled MAGNESIUM [code = Ordered: [facility] [employer] Test 06201-2] 09/02/2019 of Medicine Future Scheduled COLON CANCER SCREENING: [facility] [employer] Test COLONOSCOPY [code = of Medic ine COLON CANCER SCREENING: COLONOSCOPY] Future Scheduled CT CHEST ABDOMEN PELVIS 1 Occurrences [facility] [employer] Test W CONTRAST [code = [place] [address]-1] 10/02/2020 until 10/02/[address] CHEST ABDOMEN PELVIS 1 Occurrences [employer] Test W CONTRAST [code = [place] [address]-9] 05/25/2020 until 05/25/2021 Future Scheduled CBC W/AUTO DIFF WITH Every 3 weeks fo r [facility] [employer] Test PLATELETS [code = 16 Occurrences of Medic ine 49347-0] starting 09/09/2019 until 09/09/2020 Future Scheduled COMPREHENSIVE METABOLIC Every 3 weeks for [facility] [employer] Test PANEL [code = 81656-0] 16 Occurrences of Medicine starting 09/09/2019 until 09/09/2020 Future Scheduled MAGNESIUM [code = Every 3 weeks for [employer] Test 79733-7] 16 Occurrences of Medicine starting 09/09/2019 until 09/09/2020 Future Scheduled US DOPPLER [code = 1 Occurrences [employer] 07891] starting of Medicine 12/02/2019 until 07/03/2020 Encounters Start End Encounter Admission Attending Care Care Encounter Source Date/Time Date/Time Type Type Clinicians Facility Department ID 2022-12-23 2022-12-23 Outpatient CLAUDE BERMUDEZ SLE [id number] SLE 00:00:00 00:00:00 2022-11-25 2022-11-[address] [facility] 1.2.840.114 [id number] [facility] 10:54:40 13:46:17 Visit Lucio 350.1.13.21 Co llege 0.2.7.2.686 of [id number] [facility] 504 e 2022-10-24 2022-10-[address] [facility] [id number] [facility] 00:00:00 00:00:00 Colleg e of Medicin e 2022-09-12 2022-09-[address] [facility] 1.2.840.114 [id number] [facility] 14:34:14 15:12:59 Visit Lucio 350.1.13.21 Co llege 0.2.7.2.686 of [id number] [facility] 504 e 2022-09-01 2022-09-01 Outpatient [facility] [id number] SLE 10:55:21 23:59:00 SUFFOLK 2022-09-01 2022-09-01 [facility] [id number] [facility] 10:55:21 23:59:00 Encounter 1, [facility] 2022-09-01 2022-09-01 [facility] [id number] SLE 10:54:15 10:54:15 SUFFOLK 2022-09-01 2022-09-01 [facility] [id number] 10:54:15 10:54:15 Encounter 1, [facility] 2022-08-27 2022-08-27 Orders Doctor HENRIQUEZ 1.2.840.114 [id number] Univers 00:00:00 00:00:00 Only Unassigned, ANGELICA 350.1.13.10 ity of [place] [facility] 4.2.7.2.686 Alfie as [phone] Medi juliet 009 Branch 2022-07-25 2022-07-[address] [facility] 1.2.840.114 [id number] [facility] 14:11:19 15:26:02 Visit Lucio 350.1.13.21 Co llege 0.2.7.2.686 of [id number] Medi jennifer 504 e 2022-07-25 2022-07-[address] [facility] [id number] [facility] 00:00:00 00:00:00 Only Victoria [facility] 2022-07-15 2022-07-15 Office RHONA KELLY [facility] 1.2.840.114 [id number] [facility] 11:22:34 11:48:11 Visit AMBULATOR 350.1.13.21 College Y 0.2.7.2.686 of [id number] [facility] jennifer 300 e 2022-06-10 2022-06-[address] [facility] 1.2.840.114 [id number] [facility] 11:08:44 12:33:41 Visit Lucio 350.1.13.21 Co llege 0.2.7.2.686 of [id number] [facility] jennifer 504 e 2022-06-04 2022-06-04 Office Rhona Kelly [facility] 1.2.840.114 [id number] [facility] 11:00:00 11:22:24 Visit Nails AMBULATOR 350.1.13.21 College Y 0.2.7.2.686 of [id number] [facility] jennifer 300 e 2022-05-30 2022-05-30 Letter Howard, [facility]ERS[facility] 1.2.734.752 [id number] Univers 00:00:00 00:00:00 (Out) Les Chopra Y HEALTH 350.1.13.10 ity of CLINICS 4.2.7.2.686 Magali dobbs [id number] [facility] juliet 084 Branch 2022-05-28 2022-05-28 Transition CHRISSY Ramos 1.2.840.114 [id number] Univers 00:00:00 00:00:00 of Care Pau FLORES 350.1.13.10 it [place] [id number] [facility] juliet 403 Branch 2022-05-23 2022-05-27 Hospital Jamil Camargo 1.2.840 .114 [id number] Univers 15:18:00 18:35:00 Encounter Oracio Akers 350.1.13.10 ity of [facility] 4.2.7.2.686 [facility] [id number] Medical 094 Branch 2022-05-23 2022-05-23 Outpatient [facility] [id number] Univers 12:30:00 15:17:00 MADHURI fuentes [facility] 2022-05-23 2022-05-23 [facility]patient [facility] [id number] Univers 12:30:00 15:17:00 MADHURI fuentes [facility] 2022-05-23 2022-05-23 [facility] AJAY Avitia 1.2.840.114 [id number] Univers 12:30:00 15:17:00 Encounter Madhuri ANGELICA 350.1.13.10 ity of [facility] 4.2.7.2.686 Alfie as [id number] [facility] juliet 184 Branch 2022-05-23 2022-05-23 Orders Doctor FLORENCE 1.2.840.114 [id number] Univers 00:00:00 00:00:00 Only Unassigned, ANGELICA 350.1.13.10 ity of [place] [facility] 4.2.7.2.686 Alfie as [id number] [facility] juliet 009 Branch 2022-05-21 2022-05-21 Office RHONA KELLY 1.2.840.114 [id number] [facility] 11:51:25 12:40:34 Visit AMBULATOR 350.1.13.21 College Y 0.2.7.2.686 of [id number] [facility] jennifer 300 e 2022-05-19 2022-05-19 Transition CHRISSY Ramos 1.2.840.114 [id number] Univers 00:00:00 00:00:00 of Care Pau FLORES 350.1.13.10 it y of [place] 4.2.7.2.686 Magali dobbs [id number] [facility] 403 Branch 2022-05-14 2022-05-16 Outpatient Kavita AVITIA [facility] [id number] Univers 20:15:00 17:37:00 MADHURI fuentes [facility] 2022-05-14 2022-05-16 Hospital AJAY Avitia 1.2.840.114 [id number] Univers 20:15:00 17:37:00 Encounter Madhuri DOMINGUEZ [facility].13.10 [facility] 4.2.7.2.686 Alfie as [id number] [facility] 088 Branch 2022-05-02 2022-05-02 Outpatient CLAUDE HEALY [facility] SLE [id number] SLEH 09:28:52 23:59:00 2022-05-02 2022-05-02 [facility] Claude Bermudez [facility] [id number] 09:28:52 23:59:00 Encounter 1, [facility] Lucio [facility] Room [facility] 2022-05-02 2022-05-02 Outpatient [facility] [id number] [facility]H 09:28:44 23:59:00 2022-05-02 2022-05-02 [facility] Claude Healy [facility] [id number] 09:28:44 23:59:00 Encounter 1, [facility] Lucio [facility] Room [facility] 2022-03-12 2022-03-17 Office [facility] 1.2.840.114 [id number] [facility] 09:11:13 09:11:03 Visit LALIT BARDALES AMBULATOR 350.1.13.21 College Y 0.2.7.2.686 of [id number] [facility] 375 e 2021-12-27 2021-12-[address] [facility] 1.2.840.114 [id number] [facility] 11:40:00 12:00:00 Visit Ishaan Valdes 350.1.13.21 Co llege 0.2.7.2.686 of [id number] [facility] 504 e 2021-11-22 2021-11-22 Office JANESSA [facility]GER[facility] 1.2.840.114 [id number] [facility] 08:30:33 11:27:01 Visit VICTORIA Lucio 350.1.13.21 Co llege 0.2.7.2.686 of [id number] [facility] 504 e 2021-11-01 2021-11-[address] [facility] 1.2.840.114 [id number] [facility] 08:18:52 13:15:36 Visit Lucio 350.1.13.21 Co llege 0.2.7.2.686 of [id number] [facility] 504 e 2021-09-10 2021-09-10 [facility] Claude Bermudez [facility] [id number] [facility] 23:59:00 23:59:00 [facility] Amirah [facility] 2021-09-10 2021-09-10 Outpatient CLAUDE HEALY SLE [id number] SLESantiago 00:00:00 23:59:00 2021-09-10 2021-09-10 Outpatient CLAUDE HEALY SLESantiago SLEH [id number] SLEH 00:00:00 00:00:00 2021-07-25 2021-07-25 Outside Claude Bermudez [facility] [id number] [facility] 00:00:00 00:00:00 Orders [facility] 2021-07-19 2021-07-[address] [facility] 1.2.840.114 [id number] [facility] 09:59:11 13:06:44 Visit VICTORIA DavisNair 350.1.13.21 Co llege 0.2.7.2.686 of [id number] [facility] 504 e 2021-05-24 2021-05-[address] [facility] 1.2.840.114 [id number] [facility] 12:46:18 14:51:19 Visit Lucio 350.1.13.21 Co llege 0.2.7.2.686 of [id number] Medi jennifer 504 e 2021-05-23 2021-05-23 Out[address] KELLY [facility] [id number] [facility] 10:47:45 13:28:23 Colleg e of Medicin e 2021-05-09 2021-05-09 Office RHONA KELLY [facility] 1.2.840.114 [id number] [facility] 10:41:34 11:35:17 Visit AMBULATOR 350.1.13.21 College Y 0.2.7.2.686 of [id number] Medi jennifer 300 e 2021-04-25 2021-04-25 Office RHONA KELLY [facility] 1.2.840.114 [id number] [facility] 10:38:14 12:06:25 Visit AMBULATOR 350.1.13.21 College Y 0.2.7.2.686 of [id number] [facility] jennifer 300 e 2021-04-11 2021-04-11 [facility] Claude Bermudez [facility] [id number] [facility] 09:10:05 23:59:00 Encounter [facility] 2021-04-11 2021-04-11 [facility] Claude Bermudez [facility] [id number] 09:09:57 09:09:57 Encounter [facility] 2021-04-11 2021-04-11 Outpatient CLAUDE [facility]DEZ [facility] [id number] SLE 00:00:00 00:00:00 2021-04-11 2021-04-11 Outpatient CLAUDE BERMUDEZ [facility] [id number] SLE 00:00:00 00:00:00 2021-03-27 2021-03-27 Outside Claude Bermudez [facility] [id number] 00:00:00 00:00:00 Orders [facility] 2021-03-26 2021-03-[address] [facility] 1.2.840.114 [id number] 10:29:33 15:09:19 Visit Eddanilo Valdes 350.1.13.21 0.2.7.2.686 [id number] 530 2021-03-26 2021-03-[address] [facility] 1.2.840.114 [id number] [facility] 10:29:33 15:09:19 Visit Ishaan DavisNair 350.1.13.21 Co llegkeysha 0.2.7.2.686 of [id number] [facility] 530 e 2021-02-06 2021-02-06 [facility] Claude Bermudez [facility] [id number] 11:02:21 23:59:00 Encounter 1 [facility] 2021-02-06 2021-02-06 [facility] Claude Bermudez [facility] [id number] 11:02:12 23:59:00 Encounter 1, [facility] 2021-02-06 2021-02-06 Outpatient CLAUDE [facility]ERMUDEZ [facility] [id number] SLE 00:00:00 00:00:00 2021-02-06 2021-02-06 Outpatient EL CLAUDE BERMUDEZ SLE SLE [id number] SLEH 00:00:00 00:00:00 2021-01-23 2021-01-23 Outside Claude Bermudez [facility] [id number] 00:00:00 00:00:00 Orders [facility] 2021-01-22 2021-01-22 Office JANESSA [facility] 1.2.840.114 [id number] 10:51:06 13:05:10 Visit Victoria Lucio 350.1.13.21 Laura 0.2.7.2.686 [id number] 530 2021-01-22 2021-01-22 Office JANESSA UngerCARL [facility] 1.2.840.114 [id number] [facility] 10:51:06 13:05:10 Visit Victoria Lucio Bailey.1.13.21 Co jordy Olmedo 0.2.7.2.686 of [id number] [facility] 530 e 2020-11-27 2020-11-[address] [facility] 1.2.840.114 [id number] 09:48:38 11:14:28 Visit Edward Lucio 350.1.13.21 0.2.7.2.686 [id number] 530 2020-11-27 2020-11-[address] [facility] 1.2.840.114 [id number] [facility] 09:48:38 11:14:28 Visit Edward Lucio 350.1.13.21 Co llege 0.2.7.2.686 of [id number] [facility] 530 e 2020-11-19 2020-11-19 [facility] Claude Bermudez [facility] [id number] 09:31:38 23:59:00 Encounter 1, [facility] 2020-11-19 2020-11-19 [facility] [id number] 09:31:28 23:59:00 [facility] 2020-11-19 2020-11-19 Outpatient CLAUDE BERMUDEZ SLE SLE [id number] SLE 00:00:00 00:00:00 2020-11-19 2020-11-19 Outpatient CLAUDE BERMUDEZ SLE SLE [id number] SLE 00:00:00 00:00:00 2020-11-17 2020-11-17 Immunizati Lucius [facility] [id number] 12:26:25 12:36:25 on [facility] 2020-11-17 2020-11-17 Outpatient [facility] [id number] [facility] 00:00:00 00:00:00 2020-10-27 2020-10-27 Immunizati Jeancarlos Carrion [facility] [id number] 13:52:49 14:02:49 on [facility] 2020-10-27 2020-10-27 Outpatient [facility] [id number] [facility] 00:00:00 00:00:00 2020-10-03 2020-10-03 Outside Claude Bermudez [facility] [id number] 00:00:00 00:00:00 Orders [facility] 2020-10-02 2020-10-[address] [facility] 1.2.840.114 [id number] 09:52:54 10:12:54 Visit Edward Lucio 350.1.13.21 0.2.7.2.686 [id number] [facility] 2020-10-02 2020-10-[address] [facility] 1.2.840.114 [id number] [facility] 09:52:54 10:12:54 Visit Edward Lucio 350.1.13.21 Co llege 0.2.7.2.686 of [id number] [facility] 530 e 2020-07-24 2020-07-[address] [facility] 1.2.840.114 [id number] 09:42:03 11:50:12 Visit Edward Lucio 350.1.13.21 0.2.7.2.686 [id number] [facility] 2020-07-24 2020-07-[address] [facility] 1.2.840.114 [id number] [facility] 09:42:03 11:50:12 Visit Edward Lucio 350.1.13.21 Co llege 0.2.7.2.686 of [id number] [facility] 530 e 2020-07-12 2020-07-12 [facility] Claude Bermudez [facility] [id number] 10:30:03 23:59:00 Encounter [facility] 2020-07-12 2020-07-12 [facility] Claude Bermudez [facility] [id number] [facility] 10:29:49 10:29:49 Encounter [address] [facility] 2020-07-12 2020-07-12 Outpatient CLAUDE BERMUDEZ SLE SLE [id number] SLEH 00:00:00 00:00:00 2020-07-12 2020-07-12 Outpatient EL CLAUDE BERMUDEZ SLE SLE [id number] [facility]H 00:00:00 00:00:00 2020-05-30 2020-05-30 Outside Claude Bermudez [facility] [id number] 00:00:00 00:00:00 Orders [facility] 2020-05-25 2020-05-[address] [facility] 1.2.840.114 [id number] 12:15:16 14:16:12 Visit Eddanilo Lucio 350.1.13.21 0.2.7.2.686 [id number] 530 2020-05-25 2020-05-[address] [facility] 1.2.840.114 [id number] [facility] 12:15:16 14:16:12 Visit Eddanilo Lucio 350.1.13.21 Co llege 0.2.7.2.686 of [id number] [facility] 530 e 2020-05-09 2020-05-10 [facility] LISSETTE Yasmine Wright [facility] [id number] 17:16:00 17:37:00 Encounter Melinda Redding [facility] 2020-05-09 2020-05-09 Outpatient [place] General Med [id number] SLE 17:16:00 17:16:00 MELINDA 2020-05-09 2020-05-09 [facility] Claude Healy [facility] [id number] 10:00:00 17:15:00 Encounter [facility] 2020-05-09 2020-05-09 Outpatient CLAUDE HEALY SLE SLE [id number] SLEH 00:00:00 00:00:00 2020-05-09 2020-05-09 Outpatient CLAUDE HEALY SLEH SLEH [id number] [facility] 00:00:00 00:00:00 2020-05-09 2020-05-09 Outpatient EL SLEH SLEH [id number] [facility] 00:00:00 00:00:00 2020-05-09 2020-05-09 [facility] [id number] 00:00:00 00:00:00 Only Yasmine Saavedra Carmen [facility] 2020-05-09 2020-05-09 Travel [facility] [id number] [facility] 00:00:00 00:00:00 [facility] 2020-05-03 2020-05-03 Outpatient CLAUDE HEALY SLEH SLEH [id number] [facility]H 00:00:00 00:00:00 2020-04-30 2020-04-30 [facility] [id number] 23:59:00 23:59:00 Encounter [facility] 2020-04-30 2020-04-30 Outpatient EL SLEH SLEH [id number] [facility] 00:00:00 00:00:00 2020-04-27 2020-04-[address] [facility] 1.2.840.114 [id number] 09:42:37 10:02:37 Visit Eddanilo Guardador 350.1.13.21 0.2.7.2.686 [id number] 530 2020-04-27 2020-04-[address] [facility] 1.2.840.114 [id number] [facility] 09:42:37 10:02:37 Visit Eddanilo Guardador 350.1.13.21 Co llege 0.2.7.2.686 of [id number] Medi jennifer 530 e 2020-04-25 2020-04-25 [facility] [id number] 23:59:00 23:59:00 Encounter [facility] 2020-04-25 2020-04-25 Outpatient EL SLEH SLEH [id number] [facility] 00:00:00 00:00:00 2020-04-25 2020-04-25 Outpatient SLEH SLEH [id number] [facility] 00:00:00 00:00:00 2020-04-24 2020-04-24 Outside Claude Bermudez [facility] [id number] 00:00:00 00:00:00 Orders [facility] 2020-04-20 2020-04-20 [facility] Claude Healy [facility] [id number] 09:20:00 15:00:00 Encounter [facility] 2020-04-20 2020-04-20 Outpatient SLE SLE [id number] SLEH 00:00:00 00:00:00 2020-04-13 2020-04-13 [facility] Claude Healy [facility] [id number] 10:22:26 23:59:00 Encounter [facility] 2020-03-23 2020-03-[address] [facility] 1.2.840.114 [id number] 09:07:42 10:05:06 Visit Edward Lucio 350.1.13.21 0.2.7.2.686 [id number] 530 2020-03-23 2020-03-[address] [facility] 1.2.840.114 [id number] [facility] 09:07:42 10:05:06 Visit Edward Lucio 350.1.13.21 Co llege 0.2.7.2.686 of [id number] [facility] 530 e 2020-02-15 2020-02-15 Outpatient CLAUDE BERMUDEZ SLE SLEH [id number] [facility]H 00:00:00 00:00:00 2020-02-15 2020-02-15 Outpatient EL CLAUDE BERMUDEZ SLEH SLEH [id number] [facility] 00:00:00 00:00:00 2020-02-10 2020-02-[address] [facility] 1.2.840.114 [id number] 09:58:05 11:20:50 Visit Edward Lucio 350.1.13.21 0.2.7.2.686 [id number] [facility] 2020-02-10 2020-02-[address] [facility] 1.2.840.114 [id number] [facility] 09:58:05 11:20:50 Visit Ishaan Guardador 350.1.13.21 Co llege 0.2.7.2.686 of [id number] [facility] 530 e 2019-12-02 2019-12-02 Office Dequan BermudezCarter [facility] 1.2.840.114 [id number] 09:52:39 10:12:39 Visit E Lucio 350.1.13.21 0.2.7.2.686 [id number] [facility] 2019-12-02 2019-12-[address] [facility] 1.2.840.114 [id number] [facility] 09:52:39 10:12:39 Visit E Lucio 350.1.13.21 Co llege 0.2.7.2.686 of [id number] [facility] 530 e 2019-10-28 2019-10-28 Office Ute, [facility] 1.2.840.114 [id number] 08:54:45 09:24:45 Visit Victoria Valdes 350.1.13.21 Laura 0.2.7.2.686 [id number] [facility] 2019-10-28 2019-10-28 Office Ute, [facility] 1.2.840.114 [id number] [facility] 08:54:45 09:24:45 Visit Victoria Valdes 350.1.13.21 Co llege Laura 0.2.7.2.686 of [id number] [facility] 530 e 2019-10-07 2019-10-07 Office Ute, [facility] 1.2.840.114 [id number] 11:02:38 13:13:39 Visit Victoria Guardador 350.1.13.21 Laura 0.2.7.2.686 [id number] 530 2019-10-07 2019-10-[address] [facility] 1.2.840.[id number] [place] [address] 11:02:38 13:13:39 Visit Victoria Guardador 350.1.13.21 Co llege Laura 0.2.7.2.686 of [id number] [facility] 530 e 2019-09-09 2019-09-09 Office America MartaJessica [facility] 1.2.840.114 [id number] 09:18:01 12:12:58 Visit E Lucio 350.1.13.21 0.2.7.2.686 [id number] [facility] 2019-09-09 2019-09-09 Office [place] MartaJessica [facility] 1.2.840.114 [id number] [facility] 09:18:01 12:12:58 Visit E Lucio 350.1.13.21 Co llege 0.2.7.2.686 of [id number] [facility] 530 e 2019-09-02 2019-09-02 Office [place] MartaJessica [facility] 1.2.840.114 [id number] 12:23:05 13:04:24 Visit E Lucio 350.1.13.21 0.2.7.2.686 [id number] [facility] 2019-09-02 2019-09-[address] [facility] 1.2.840.114 [id number] [facility] 12:23:05 13:04:24 Visit E Lucio 350.1.13.21 Co llege 0.2.7.2.686 of [id number] [facility] 530 e 2019-04-26 2019-04-[address] [facility] 1.2.840.114 [id number] 08:26:03 10:59:55 Visit E Lucio 350.1.13.21 0.2.7.2.686 [id number] [facility] 2019-04-26 2019-04-[address] [facility] 1.2.840.114 [id number] [facility] 08:26:03 10:59:55 Visit E Lucio 350.1.13.21 Co llege 0.2.7.2.686 of [id number] [facility] 530 e 2018-12-17 2018-12-17 Outpatient NIGLE HANDLEY [id number] [facility] 00:00:00 00:00:00 STEPHANIE Results Test Description Test Time Test Comments Results Result Comments Source [facility] 2022-11-26 16:54:44 Test Item Value Reference Range Interpretation Comme nts THYROID STIMULATING HORMONE 1.330 See_Comment Unless Otherwise Indicated, All (test code = 02616-9) Testin g Performed At: Clinical Pathology [facility], [address] [place] [address] Tv News Director: Ji Morton M.D. CLIA Number [id number] [place]. [address]-67 [Automated mess age] The system which generated this result transmitted ref erence range: 0.400 - 4.100 UIU/ML. The reference range was not used to interpret this result as hannah l/abnormal. [facility] [id number] 16:54:44 Test Item Value Reference Range Interpretation Comments FREE T4 (test code = 1.30 See_Comment Unless Otherwise 3024-7) Indicated, All Testing Performed At: [place] [address] Laborator y Director: Ji bennett M.D. CLIA Number [id number] Cap Accreditation N o. [id number] [Automated mess age] The system which ge nerated this result transmit anne marie reference range : 0.80 - 1.90 NG/DL. The reference range was not u sed to interpret this result as normal/abnormal . [facility] H[id number] 18:47:05 Test Item Value Reference Range Interpretation Comments MAGNESIUM (test code = 1.7 See_[place] [address]-9) CLINICAL PATHForticom, I [place]. [address] [facility] [place], [place] [address] CLIA NO. [id number] Unle ss Otherwise Indic ated, All Testing Perform ed At: [facility], [address] [place] [address] Laboratory Dire ctor: Stefan Thomas CLIA Number [id number] Cap Accreditation N o. [id number] [Automated mess age] The system which ge nerated this result tra nsmitted reference range : 1.6 - 2.6 MG/DL. The refe rence range was not used to interpret this result as normal/abnormal . [facility] HospitalCOMPREHENSIVE METABOLIC [id number] 18:46:45 Test Item Value Reference Range Interpretation Comments GLUCOSE (test code = 104 See_Comment H [Autom ated message] 5555-7) The system [employer] generated this result transmitted ref erence range: 70 - 99 MG/DL. The reference r maria a was not used to interpret this result as normal/abnor mal. BLOOD UREA NITROGEN 33 See_Comment H [Automa anne marie message] (test code = 3091-6) The s tem which generated this result transmitted ref erence range: 8 - 23 M G/DL. The reference r maria a was not used to interpret this result as normal/abnor mal. CREATININE (test code = 2.02 See_Comment H [Au tomated message] 2160-0) The system [facility] generated this result transmitted ref erence range: 0.8 - 1. 4 MG/DL. The refe rence range was not u sed to interpret this result as normal/abnor mal. EGFR (test code = 37 See_Comment L [Automate d message] 29053-7) The system [employer] generated this result transmitted ref erence range: >60 ML/MIN/1.73. Th e reference range was not used to int erpret this result as normal/abnormal . BUN/CREAT RATIO (test 16 See_Comment [Auto mated message] code = 3097-3) The system [facility] generated this result transmitted ref erence range: 6 - 28 R ATIO. The reference r maria a was not used to interpret this result as normal/abnor mal. SODIUM (test code = 135 See_Comment [Automa anne marie message] 4971-2) The system [employer] generated this result transmitted ref erence range: 133 - 14 6 MEQ/L. The refe rence range was not u sed to interpret this result as normal/abnor mal. POTASSIUM (test code = 4.5 See_Comment [Aut omated message] 8093-3) The system [facility] [employer] generated this result transmitted ref erence range: 3.5 - 5. 4 MEQ/L. The refe rence range was not u sed to interpret this result as normal/abnor mal. CHLORIDE (test code = 101 See_Comment [Auto mated message] 2074-0) The system [employer] generated this result transmitted ref erence range: 100 - 11 2 MEQ/L. The refe rence range was not u sed to interpret this result as normal/abnor mal. CO2 (test code = 18 See_Comment L [Automated message] 1963-03) The system [employer] generated this result transmitted ref erence range: 21 - 30 MEQ/L. The reference r maria a was not used to interpret this result as normal/abnor mal. CALCIUM (test code = 8.9 See_Comment [Autom ated message] 43662-4) The system [employer] generated this result transmitted ref erence range: 8.5 - 10 .5 MG/DL. The refe rence range was not u sed to interpret this result as normal/abnor mal. PROTEIN TOTAL (test 7.3 See_Comment [Automa anne marie message] code = 2835-2) The system [employer] generated this result transmitted ref erence range: 6.1 - 8. 1 G/DL. The reference r maria a was not used to interpret this result as normal/abnor mal. ALBUMIN (test code = 3.8 See_Comment [Autom ated message] 08825-3) The system [employer] generated this result transmitted ref erence range: 3.4 - 4. 8 G/DL. The reference r maria a was not used to interpret this result as normal/abnor mal. GLOBULINS, SERUM, TOTAL 3.5 See_Comment [Au tomated message] (test code = 93899-8) The sy stem which generated this result transmitted ref erence range: 1.9 - 3. 7 G/DL. The reference r maria a was not used to interpret this result as normal/abnor mal. A/G RATIO (test code = 1.1 See_Comment [Aut omated message] 0849-0) The system [employer] generated this result transmitted ref erence range: 1.0 - 2. 6 RATIO. The refe rence range was not u sed to interpret this result as normal/abnor mal. BILIRUBIN TOTAL (test 1.2 See_Comment [Auto mated message] code = 1974-2) The system ich generated this result transmitted ref erence range: <=1.2 MG /DL. The reference r maria a was not used to interpret this result as normal/abnor mal. ALKALINE PHOSPHATASE 82 U/L 30-132 (test code = 6768-6) AST (SGOT) (test code = 26 U/L 7-56 1920-8) ALT (SGPT) (test code = 13 U/L 3-47 FRANCISCO JAVIER TING PERFORMED AT 1744-2) [facility], I [place]. [address] [place] [address] CLIA NO. [id number] Unle ss Otherwise Indic ated, All Testing Per formed At: [facility], [address] [place] [address] Laborator y Director: Ji Morton M.D. CLIA Number [id number] Cap Accreditation N o. [id number] Lab Interpretation Abnormal (test code = 06927-0) [facility] W/AUTO DIFF WITH [id number] 18:20:06 Test Item Value Reference Range Interpretation Comments WHITE BLOOD CELL COUNT 5.5 See_Comment [Aut omated message] (test code = 23286-8) The sy stem which generated this result transmitted ref erence range: 3.5 - 11 .0 K/UL. The refer ence range was not u sed to interpret this result as normal/abnor mal. RED BLOOD CELL COUNT 3.64 See_Comment L [Autom ated message] (test code = 92234-3) The sy stem which generated this result transmitted ref erence range: 4.50 - 6 .10 M/UL. The refer ence range was not u sed to interpret this result as normal/abnor mal. HEMOGLOBIN (test code = 9.3 See_Comment L [Au tomated message] 518-7) The system ic h generated this result transmitted ref erence range: 13.5 - 1 7.0 G/DL. The refer ence range was not u sed to interpret this result as normal/abnor mal. HEMATOCRIT (test code = 31.3 % 40.0-51.0 L 87781-8) MEAN CORPUSCULAR VOLUME 86.0 fL 80.0-99.0 (test code = 23410-5) MEAN CORPUSCULAR 25.5 PG 25.0-33.0 HEMOGLOBIN (test code = 10814-2) MEAN CORPUSCULAR 29.7 See_Comment L [Automated message] HEMOGLOBIN CONC (test The sy stem which code = 65967-6) generated th is result transmitted ref erence range: 31.0 - 3 6.0 G/DL. The refer ence range was not u sed to interpret this result as normal/abnor mal. RED CELL DISTRIBUTION 16.7 % 11.5-15.0 H WIDTH (test code = 60061-8) NEUTROPHILS % (test code 65 % = 38084-4) LYMPHOCYTES % (test code 14 % = 20974-5) MONOCYTES % (test code = 15 % 20172-0) EOSINOPHILS % (test code 6 % = 55701-5) BASOPHILS % (test code = 1 % 33147-9) PLATELET COUNT (test 370 See_Comment TESTIN G PERFORMED AT code = 96930-7) [facility] [employer] [facility], [facility]. [address] [place] [address] CLIA NO. [id number] [Aut omated message] The sy stem which generated this result transmit anne marie reference range : 130 - 400 K/UL. The reference range was not used to int erpret this result as normal/abnormal . NEUTROPHILS ABSOLUTE 3.58 See_Comment [Autom ated message] COUNT (test code = The syste [place] which 06995-5) generated this result transmitted ref erence range: 1.50 - 7 .50 K/UL. The refer ence range was not u sed to interpret this result as normal/abnor mal. LYMPHOCYTES ABSOLUTE 0.75 See_Comment L [Autom ated message] COUNT (test code = The syste m which 46746-2) generated this result transmitted ref erence range: 1.00 - 4 .00 K/UL. The refer ence range was not u sed to interpret this result as normal/abnor mal. MONOCYTES ABSOLUTE COUNT 0.80 See_Comment [A utomated message] (test code = 53449-1) The sy stem which generated this result transmitted ref erence range: 0.20 - 1 .00 K/UL. The refer ence range was not u sed to interpret this result as normal/abnor mal. BASOPHILS ABSOLUTE COUNT 0.03 See_Comment Un less Otherwise (test code = 50243-1) Indica anne marie, All Testing Perform ed At: [facility], [address] [facility], [place] [address] Laborator y Director: Ji Morton M.D. CLIA Number [id number] Cap Accreditation N o. [id number] [Autom ated message] The sy stem which generated this result transmit anne marie reference range : 0.00 - 0.20 K/UL. Th e reference range was not used to int erpret this result as normal/abnormal . Lab Interpretation (test Abnormal code = 86532-7) [facility] HospitalCT, [id number] 13:52:00Stage IV RCC restagingPlease schedule between 09/01/2022 and 09/10/2022Release to patient->ImmediateWhich [facility] radiology location is preferred?->5 Minutes ID = [id number]; Insurance Company Name = MEDICARE; Insurance Company Phone Number = ; Policy Number = [id number] [facility] : 1960 Sex: MFINAL REPORT CT of chest without contrast, CT of the abdomen and pelvis with contrast Clinical History: C64.1\\S\\Malignant neoplasm of right kidney, except renal pelvis Technique: CTof the chest is performed without contrast, CT of the abdomen and pelvis is performed after intravenous contrast administration. This exam was performed according to our departmental dose optimization program which includes automated exposure control, adjustment of the mA and/or kV according to patient's size and/or use of iterative reconstructive technique. Comparison Film: May 02, 2022, April 11, 2021, February 06, 2021 Discussion: Visualized thyroid gland is normal. No supraclavicular, axillary, mediastinal or hilar lymphadenopathy. Heart is borderline enlarged, and there is trace pericardial fluid. After squatting calcification is noted in the coronary arteries. There is mild atelectasis/sc arring at the left lung base. There is a 8mm nodule in right upper lobe abutting the minor fissure (image 48) that has become larger, suspicious for metastasis. Other scattered pulmonary nodules are unchanged. No pleural effusion. Central airways are patent, no significant bronchiectasis or bronchial wall thickening. Multiple metastatic deposits in right hepatic lobe has enlarged. For example, a lesion in segment six has grown from 2.6 cm to 4 cm. Another 1.3 cm lesion has grown to 2.4 cm. No definite new liver mass. No biliary ductal dilatation. Gallbladder is normal. A neto hepatis lymph node isgrossly unchanged. Right renal mass with invasion into the renal vein and IVC appear grossly unchanged. Multiple right retroperitoneal metastatic nodules, most are stable, a few have enlarged. For example, a nodule abutting the right hemidiaphragm has grown from 1.2 cm to 1.8 cm. More inferiorly, another nodule near the cecum has grown from 1.8 cm to 2.2 cm. There are some Left kidney appears normal.No hydronephrosis or radiopaque stone. There are several right abdomen omental metastatic deposits as well, without significant interval change. A tumor deposit in the left pelvis has grown from 1.2 cmto 1.6 cm (image 93). No ascites. No evidence of bowel obstruction, or abnormal bowel wall thickening. Normal appendix. Bladder is unremarkable. The prostate gland is enlarged. Bony structures demonstrate advanced degenerative changes. Stable lytic metastasis in the left inferior pubic ramus. No new suspicious bony lesion is identified. Impression: Continued progression of liver metastasis. Several right retroperitoneal tumoral deposits, and a left pelvic deposit has grown. New 8mm pulmonary metastasis in right upper lobe. Grossly stable right-sided omental/peritoneal deposits. Stable lytic metastasis involving left inferior pubic ramus. Grossly stable appearance of right renal mass with renal vein and IVC invasion. Signed: Lizzette S[place] Verified Date/Time: 09/01/2022 13:52:37 Reading Location: [facility] B1 C013X Ortho Consult Reading Room 01: 52 PMCT, CHEST, WITHOUT IV [id number] 13:52:00Stage IV RCC restagingPlease schedule between 09/01/2022 and 09/10/2022Release to patient->ImmediateWhich [facility] radiology location is preferred?->5 Minutes ID = [id number]; Insurance Company Name = MEDICARE; Insurance Company Phone Number = ; Policy Number = [id number] [facility] : 1960 Sex: MFINAL REPORT CT of chest without contrast, CT of the abdomen and pelvis with contrast Clinical History: C64.1\\S\\Malignant neoplasm of right kidney, except renal pelvis Technique: CTof the chest is performed without contrast, CT of the abdomen and pelvis is performed after intravenous contrast administration. This exam was performed according to our departmental dose optimization program which includes automated exposure control, adjustment of the mA and/or kV according to patient's size and/or use of iterative reconstructive technique. Comparison Film: May 02, 2022, April 11, 2021, February 06, 2021 Discussion: Visualized thyroid gland is normal. No supraclavicular, axillary, mediastinal or hilar lymphadenopathy. Heart is borderline enlarged, and there is trace pericardial fluid. After squatting calcification is noted in the coronary arteries. There is mild atelectasis/sc arring at the left lung base. There is a 8mm nodule in right upper lobe abutting the minor fissure (image 48) that has become larger, suspicious for metastasis. Other scattered pulmonary nodules are unchanged. No pleural effusion. Central airways are patent, no significant bronchiectasis or bronchial wall thickening. Multiple metastatic deposits in right hepatic lobe has enlarged. For example, a lesion in segment six has grown from 2.6 cm to 4 cm. Another 1.3 cm lesion has grown to 2.4 cm. No definite new liver mass. No biliary ductal dilatation. Gallbladder is normal. A neto hepatis lymph node isgrossly unchanged. Right renal mass with invasion into the renal vein and IVC appear grossly unchanged. Multiple right retroperitoneal metastatic nodules, most are stable, a few have enlarged. For example, a nodule abutting the right hemidiaphragm has grown from 1.2 cm to 1.8 cm. More inferiorly, another nodule near the cecum has grown from 1.8 cm to 2.2 cm. There are some Left kidney appears normal.No hydronephrosis or radiopaque stone. There are several right abdomen omental metastatic deposits as well, without significant interval change. A tumor deposit in the left pelvis has grown from 1.2 cmto 1.6 cm (image 93). No ascites. No evidence of bowel obstruction, or abnormal bowel wall thickening. Normal appendix. Bladder is unremarkable. The prostate gland is enlarged. Bony structures demonstrate advanced degenerative changes. Stable lytic metastasis in the left inferior pubic ramus. No new suspicious bony lesion is identified. Impression: Continued progression of liver metastasis. Several right retroperitoneal tumoral deposits, and a left pelvic deposit has grown. New 8mm pulmonary metastasis in right upper lobe. Grossly stable right-sided omental/peritoneal deposits. Stable lytic metastasis involving left inferior pubic ramus. Grossly stable appearance of right renal mass with renal vein and IVC invasion. Signed: Lizzette Smith MDReport Verified Date/Time: 09/01/2022 13:52:37 Reading Location: [facility] C013X [facility] Consult Reading Room 01: 52 [id number] 11:23:46 Test Item Value Reference Range Interpretation Comments POC-Creatinine 0.9 mg/dL 0.6-1.3 : TESTED AT [facility] [address] (test code = [facility] [address]0) [place] [address]: Head Sampler/Techni vipin ID = [id number] for MAGS LURDES, MARKO POC-EGFR (test 99 mL/min/1.73M2 Interpretat ion of eGFR code = 60640-8) Values Stage Description Result G1 Hannah l or high >=90 G2 Mildly decreased 60-89 G3a Mildl y to moderately 45-5 9 G3b Moderately to s dre 30-44 G4 Severely dec reased 15-29 G5 Kidney Failu re <15Reported eGF R is based on the CKD-EPI 2021 equation that d oes not use a race coeffici ent Estimated GFR i s not as accurate as Cre atinine Clearance in pr edicting glomerular filt ration rate. Estimated GFR i s not applicable for dialysis patients [facility]-Tqwedaycye0571-78-75 11:23:46 Test Item Value Reference Range Interpretation Comments POC-Creatinine 0.9 mg/dL 0.6-1.3 : TESTED AT [place] [address] (test code = [address]) [place] [address]: Head Sampler/Techni vipin ID = [id number] for MAGS LURDES, MARKO POC-EGFR (test 99 mL/min/1.73M2 Interpretat ion of eGFR code = 01364-2) Values Stage Description Result G1 Hannah l or high >=90 G2 Mildly decreased 60-89 G3a Mildl y to moderately 45-5 9 G3b Moderately to s dre 30-44 G4 Severely dec reased 15-29 G5 Kidney Failu re <15Reported eGF R is based on the CKD-EPI 2021 equation that d oes not use a race coeffici ent Estimated GFR i s not as accurate as Cre atinine Clearance in pr edicting glomerular filt ration rate. Estimated GFR i s not applicable for dialysis patients [facility]-Uiboyddico2251-55-24 11:23:46 Test Item Value Reference Range Interpretation Comments POC-Creatinine 0.9 mg/dL 0.6-1.3 : TESTED AT [place] [address] (test code = [employer] [facility] [place] 9747983-4) [place] [address]: Head Sampler/Techni vipin ID = [id number] for MAGS LURDES, MARKO POC-EGFR (test 99 mL/min/1.73M2 Interpretat ion of eGFR code = 85968-8) Values Stage Description Result G1 Hannah l or high >=90 G2 Mildly decreased 60-89 G3a Mildl y to moderately 45-5 9 G3b Moderately to s dre 30-44 G4 Severely dec reased 15-29 G5 Kidney Failu re <15Reported eGF R is based on the CKD-EPI 2021 equation that d oes not use a race coeffici ent Estimated GFR i s not as accurate as Cre atinine Clearance in pr edicting glomerular filt ration rate. Estimated GFR i s not applicable for dialysis patients [facility]-Wnhiruebic6966-98-11 11:23:46 Test Item Value Reference Range Interpretation Comments POC-Creatinine 0.9 mg/dL 0.6-1.3 : TESTED AT [place] [address] (test code = [facility] [place] [address]) [place] [address]: Head Sampler/Techni vipin ID = [id number] for MAGS LURDES, MARKO POC-EGFR (test 99 mL/min/1.73M2 Interpretat ion of eGFR code = 90483-4) Values Stage Description Result G1 Hannah l or high >=90 G2 Mildly decreased 60-89 G3a Mildl y to moderately 45-5 9 G3b Moderately to s dre 30-44 G4 Severely dec reased 15-29 G5 Kidney Failu re <15Reported eGF R is based on the CKD-EPI 2021 equation that d oes not use a race coeffici ent Estimated GFR i s not as accurate as Cre atinine Clearance in pr edicting glomerular filt ration rate. Estimated GFR i s not applicable for dialysis patients [facility] 11:23:46 Test Item Value Reference Range Interpretation Comments POC-Creatinine 0.9 mg/dL 0.6-1.3 : TESTED AT [facility] [address] (test code = [employer] [facility] [place], [place] [address]) [place] [address]: Head Sampler/Techni vipin ID = [id number] for MAGS LURDES, MARKO POC-EGFR (test 99 mL/min/1.73M2 Interpretat ion of eGFR code = 99204-8) Values Stage Description Result G1 Hannah l or high >=90 G2 Mildly decreased 60-89 G3a Mildl y to moderately 45-5 9 G3b Moderately to s dre 30-44 G4 Severely de creased 15-29 G5 Kidney Failure <15Reported eGF R is based on the CKD-EPI 2021 equation that d oes not use a race coeffici ent Estimated GFR i s not as accurate as Cre atinine Clearance in pr edicting glomerular filt ration rate. Estimated GFR i s not applicable for dialysis patients [facility]yfpdjAQJ[facility]-GPQGHAPQVT0313-19-30 11:23:46 Test Item Value Reference Range Interpretation Comments POC-CREATININ 0.9 mg/dL 0.6-1.3 : TESTED AT [facility] [address] [facility] [place] [address], [facility] (test code = [address]: Head Sampler /[employer] Professor 6719) ID = [id number] for MARKO GONSALVES POC-EGFR 99 Interpretation of eGFR ([facility]) mL/min/1.73M2 Values Stage D escription (test code = Result G1 Hannah l or high 1860) >=90 G2 Mildly decreased 60-89 G3a Mildl y to moderately 45-5 9 G3b Moderately to s dre 30-44 G4 Severely dec reased 15-29 G5 Kidney Fail ure <15Reported eGF R is based on the CKD-EPI 202 1 equation that does not u se a race coefficientEsti mated GFR is not as accurate as Creatinine [place] in predicting glom erular filtration rate . Estimated GFR is not appl icable for dialysis patien ts VITAMIN B12, [id number] 21:51:07 Test Item Value Reference Range Interpretation Comments VIT B12 (test code = 496 pg/mL 240-930 [id number]) MATT (test code = MATT) Biotin has been reported to cause a positive bias, interpret results relative to patient's use of biotin. Lab Interpretation (test Normal code = 48162-3) [facility] [id number] 21:51:07 Test Item Value Reference Range Interpretation Comments VIT B12 (test code = 496 pg/mL 240-930 [id number]) MATT (test code = MATT) Biotin has been reported to cause a positive bias, interpret results relative to patient's use of biotin. Lab Interpretation (test Normal code = 31429-5) [facility]2022-[facility]-27 16:25:52 Test Item Value Reference Range Interpretation Comments POCT GLU (test code = 1617733938) 201 mg/dL 70-110 H Lab Interpretation (test code = Abnormal 20482-6) [facility] GLUCOSE (AUTOMATED)2022-05-27 16:25:52 Test Item Value Reference Range Interpretation Comments POCT GLU (test code = 0387583218) 201 mg/dL 70-110 H Lab Interpretation (test code = Abnormal 22859-2) [facility]2022-10-25 15:08:58 Test Item Value Reference Range Interpretation Comments FOLATE SER (test code = 5.0 ng/mL 3-20 Biot in has been [id number]) reported to cau se a positive bias, interpret resul ts relative to patient's use o f biotin. Lab Interpretation (test Normal code = 07151-5) [facility]2022-10-25 15:08:58 Test Item Value Reference Range Interpretation Comments FOLATE SER (test code = 5.0 ng/mL 3-20 Biot in has been [id number]) reported to cau se a positive bias, interpret resul ts relative to patient's use o f biotin. Lab Interpretation (test Normal code = 73354-4) [facility] GLUCOSE (AUTOMATED)2022-05-27 13:13:33 Test Item Value Reference Range Interpretation Comments POCT GLU (test code = 6132863697) 107 mg/dL 70-110 Lab Interpretation (test code = Normal 21677-3) [facility] GLUCOSE (AUTOMATED)2022-05-27 13:13:33 Test Item Value Reference Range Interpretation Comments POCT GLU (test code = 7630520463) 107 mg/dL 70-110 Lab Interpretation (test code = Normal 85118-2) [facility] GLUCOSE (AUTOMATED)2022-05-27 03:10:13 Test Item Value Reference Range Interpretation Comments POCT GLU (test code = 1778982194) 236 mg/dL 70-110 H Lab Interpretation (test code = Abnormal 66935-6) [facility] GLUCOSE (AUTOMATED)2022-05-27 03:10:13 Test Item Value Reference Range Interpretation Comments POCT GLU (test code = 5365432029) 236 mg/dL 70-110 H Lab Interpretation (test code = Abnormal 90929-5) [facility] GLUCOSE (AUTOMATED)2022-05-26 21:47:36 Test Item Value Reference Range Interpretation Comments POCT GLU (test code = 7073094918) 169 mg/dL 70-110 H Lab Interpretation (test code = Abnormal 95599-3) [facility] GLUCOSE (AUTOMATED)2022-05-26 21:47:36 Test Item Value Reference Range Interpretation Comments POCT GLU (test code = 6994816749) 169 mg/dL 70-110 H Lab Interpretation (test code = Abnormal 48484-6) [facility] GLUCOSE (AUTOMATED)2022-05-26 17:20:46 Test Item Value Reference Range Interpretation Comments POCT GLU (test code = 9357951157) 164 mg/dL 70-110 H Lab Interpretation (test code = Abnormal 88874-7) [facility] GLUCOSE (AUTOMATED)2022-05-26 17:20:46 Test Item Value Reference Range Interpretation Comments POCT GLU (test code = 8802811081) 164 mg/dL 70-110 H Lab Interpretation (test code = Abnormal 30432-7) [facility] GLUCOSE (AUTOMATED)2022-05-26 13:23:08 Test Item Value Reference Range Interpretation Comments POCT GLU (test code = 0803372286) 120 mg/dL 70-110 H Lab Interpretation (test code = Abnormal 03568-7) [facility] GLUCOSE (AUTOMATED)2022-05-26 13:23:08 Test Item Value Reference Range Interpretation Comments POCT GLU (test code = 5860588781) 120 mg/dL 70-110 H Lab Interpretation (test code = Abnormal 18115-5) [facility] GLUCOSE (AUTOMATED)2022-05-26 01:08:27 Test Item Value Reference Range Interpretation Comments POCT GLU (test code = 5356068086) 180 mg/dL 70-110 H Lab Interpretation (test code = Abnormal 64298-8) [facility] 01:08:27 Test Item Value Reference Range Interpretation Comments POCT GLU (test code = 5170800398) 180 mg/dL 70-110 H Lab Interpretation (test code = Abnormal 14139-3) [facility] GLUCOSE (AUTOMATED)2022-05-25 22:37:30 Test Item Value Reference Range Interpretation Comments POCT GLU (test code = 9867159923) 152 mg/dL 70-110 H Lab Interpretation (test code = Abnormal 93467-5) [facility] GLUCOSE (AUTOMATED)2022-05-25 22:37:30 Test Item Value Reference Range Interpretation Comments POCT GLU (test code = 0227873014) 152 mg/dL 70-110 H Lab Interpretation (test code = Abnormal 40766-5) [facility] GLUCOSE (AUTOMATED)2022-05-25 20:19:01 Test Item Value Reference Range Interpretation Comments POCT GLU (test code = 1724964839) 153 mg/dL 70-110 H Lab Interpretation (test code = Abnormal 55636-0) [facility] GLUCOSE (AUTOMATED)2022-05-25 20:19:01 Test Item Value Reference Range Interpretation Comments POCT GLU (test code = 1602701680) 153 mg/dL 70-110 H Lab Interpretation (test code = Abnormal 25396-4) [facility] GLUCOSE (AUTOMATED)2022-05-25 16:53:20 Test Item Value Reference Range Interpretation Comments POCT GLU (test code = 4707607131) 148 mg/dL 70-110 H Lab Interpretation (test code = Abnormal 82439-8) [facility] GLUCOSE (AUTOMATED)2022-05-25 16:53:20 Test Item Value Reference Range Interpretation Comments POCT GLU (test code = 4948272777) 148 mg/dL 70-110 H Lab Interpretation (test code = Abnormal 99691-6) [facility] GLUCOSE (AUTOMATED)2022-05-25 13:52:48 Test Item Value Reference Range Interpretation Comments POCT GLU (test code = 7825998637) 135 mg/dL 70-110 H Lab Interpretation (test code = Abnormal 03454-4) [facility] GLUCOSE (AUTOMATED)2022-05-25 13:52:48 Test Item Value Reference Range Interpretation Comments POCT GLU (test code = 9425459514) 135 mg/dL 70-110 H Lab Interpretation (test code = Abnormal 89919-9) [facility] GLUCOSE (AUTOMATED)2022-05-25 01:03:21 Test Item Value Reference Range Interpretation Comments POCT GLU (test code = 4710901071) 172 mg/dL 70-110 H Lab Interpretation (test code = Abnormal 12207-1) [facility] GLUCOSE (AUTOMATED)2022-05-25 01:03:21 Test Item Value Reference Range Interpretation Comments POCT GLU (test code = 8562019970) 172 mg/dL 70-110 H Lab Interpretation (test code = Abnormal 13067-8) [facility] GLUCOSE (AUTOMATED)2022-05-24 22:19:57 Test Item Value Reference Range Interpretation Comments POCT GLU (test code = 2315941770) 214 mg/dL 70-110 H Lab Interpretation (test code = Abnormal 16340-7) [facility] GLUCOSE (AUTOMATED)2022-05-24 22:19:57 Test Item Value Reference Range Interpretation Comments POCT GLU (test code = 3770469194) 214 mg/dL 70-110 H Lab Interpretation (test code = Abnormal 14828-5) [facility] GLUCOSE (AUTOMATED)2022-05-24 22:17:21 Test Item Value Reference Range Interpretation Comments POCT GLU (test code = 134 mg/dL 70-110 H Notifi ed Provider [id number]) Lab Interpretation (test Abnormal code = 37842-3) [facility] GLUCOSE (AUTOMATED)2022-05-24 22:17:21 Test Item Value Reference Range Interpretation Comments POCT GLU (test code = 134 mg/dL 70-110 H Notifi ed Provider [id number]) Lab Interpretation (test Abnormal code = 79112-8) [facility] GLUCOSE (AUTOMATED)2022-05-24 17:05:07 Test Item Value Reference Range Interpretation Comments POCT GLU (test code = 179 mg/dL 70-110 H Notifi ed Provider [id number]) Lab Interpretation (test Abnormal code = 93867-0) [facility] GLUCOSE (AUTOMATED)2022-05-24 17:05:07 Test Item Value Reference Range Interpretation Comments POCT GLU (test code = 179 mg/dL 70-110 H Notifi ed Provider [id number]) Lab Interpretation (test Abnormal code = 81934-1) [facility] GLUCOSE (AUTOMATED)2022-05-24 13:15:02 Test Item Value Reference Range Interpretation Comments POCT GLU (test code = 148 mg/dL 70-110 H Notifi ed Provider [id number]) Lab Interpretation (test Abnormal code = 09146-7) [facility] GLUCOSE (AUTOMATED)2022-05-24 13:15:02 Test Item Value Reference Range Interpretation Comments POCT GLU (test code = 148 mg/dL 70-110 H Notifi ed Provider [id number]) Lab Interpretation (test Abnormal code = 97170-9) [facility] [id number] 03:48:25 Test Item Value Reference Range Interpretation Comments LACTIC ACID (test code = 2.06 mmol/L 0.5-2.2 1020097037) Lab Interpretation (test code = Normal 12739-8) [facility] Zgykv9144-83-17 03:48:25 Test Item Value Reference Range Interpretation Comments LACTIC ACID (test code = 2.06 mmol/L 0.5-2.2 4323233557) Lab Interpretation (test code = Normal 30025-2) [facility] [id number] 00:01:11 Test Item Value Reference Range Interpretation Comments LACTIC ACID (test code = 2.45 mmol/L 0.5-2.2 H 9035063772) Lab Interpretation (test code = Abnormal 60269-8) [facility] [id number] 00:01:11 Test Item Value Reference Range Interpretation Comments LACTIC ACID (test code = 2.45 mmol/L 0.5-2.2 H 1217396764) Lab Interpretation (test code = Abnormal 94693-2) [facility] GLUCOSE (AUTOMATED)2022-05-16 19:00:50 Test Item Value Reference Range Interpretation Comments POCT GLU (test code = 1452429662) 162 mg/dL 70-110 H Lab Interpretation (test code = Abnormal 04464-0) [facility] GLUCOSE (AUTOMATED)2022-05-16 12:49:16 Test Item Value Reference Range Interpretation Comments POCT GLU (test code = 95 mg/dL 70-110 Notifi ed Provider [id number]) Lab Interpretation (test Normal code = 41613-5) [facility] Test Item Value Reference Range Interpretation Comments MAGNESIUM (test code = 4147749489) 1.0 mg/dL 1.7-2.4 L Lab Interpretation (test code = Abnormal 61825-4) [facility] METABOLIC PANEL (NA, K, CL, CO2, GLUCOSE, BUN, CREATININE, CA)2022-05-16 11:23:31 Test Item Value Reference Range Interpretation Comments NA (test code = 136 mmol/L 135-145 4759885062) K (test code = 3.7 mmol/L 3.5-5 1334498389) CL (test code = 103 mmol/L 98-108 5653518367) CO2 TOTAL (test code = 28 mmol/L 23-31 3388423417) AGAP (test code = 2-16 9618183421) BUN (test code = 16 mg/dL 7-23 7375413575) GLUCOSE (test code = 99 mg/dL 70-110 1646519825) CREATININE (test code = 1.10 mg/dL 0.6-1.25 9586431822) CALCIUM (test code = 7.1 mg/dL 8.6-10.6 L 3854982624) eGFR (test code = mL/min/1.73m2 6419149376) MATT (test code = MATT) Association of Glomerular Filtration Rate (GFR) and Staging of Kidney Disease* + --+ --+ ------+| GFR (mL/min/1.73 m2) ?| With Kidney Damage ?| ?Without Kidney Damage+ --------+ --------+ +| ?>90 ?| ?Stage one ?| ? Normal ?+ ---+ ---+ -------+| ?60-89 ?| ?Stage two ?| ? Decreased GFR ? + --+ --+ ------+| ?30-59 ?| ?Stage three ?| ? Stage three ? + --+ --+ ------+| ?15-29 ?| ?Stage four ? | ? Stage four ?+ ---+ ---+ -------+| ?<15 (or dialysis) ? ?| ?Stage five ? | ? Stage five ?+ ---+ ---+ -------+ *Each stage assumes the associated GFR level has been in effect for at least three months. ?Stages 1 to 5, with or without kidney disease, indicate chronic kidney disease. Notes: Determination of stages one and two (with eGFR >59mL/min/1.73 m2) requires estimation of kidney damage for at least three months as defined by structural or functional abnormalities of the kidney, manifested by either:Pathological abnormalities or Markers of kidney damage (including abnormalities in the composition of the blood or urine or abnormalities in imaging tests). Lab Interpretation Abnormal (test code = 04815-7) [facility] 11:23:31 Test Item Value Reference Range Interpretation Comments PHOSPHORUS (test code = 2634804165) 2.2 mg/dL 2.5-5 L Lab Interpretation (test code = Abnormal 49315-3) [facility] [id number] 10:33:43 Test Item Value Reference Range Interpretation Comments WBC (test code = See_Comment [Automated 6690-2) message] The sy stem which generated this result transmitted reference range : 4.20 - 10.70 10*3/?L. The reference range was not used to interpret this result as normal/abnormal . RBC (test code = See_Comment L [Automated 789-8) message] The sy stem which generated this result transmitted reference range : 4.26 - 5.52 10*6/?L. The reference range was not used to interpret this result as normal/abnormal . HGB (test code = 9.1 g/dL 12.2-16.4 L 718-7) HCT (test code = 28.0 % 38.4-49.3 L 4544-3) MCV (test code = 98.6 fL 81.7-95.6 H 787-2) MCH (test code = 32.0 pg 26.1-32.7 785-6) MCHC (test code = 32.5 g/dL 31.2-35 786-4) RDW-SD (test code = 50.4 fL 38.5-51.6 58401-8) RDW-CV (test code = 14.0 % 12.1-15.4 788-0) PLT (test code = See_Comment [Automated 777-3) message] The sy stem which generated this result transmitted reference range : 150 - 328 10*3/ ?L. The reference r maria a was not used to interpret this result as normal/abnormal . MPV (test code = 10.1 fL 9.8-13 85176-7) NRBC/100 WBC (test See_Comment [Automat ed code = 9400928100) message] The system which generated this result transmitted reference range : 0.0 - 10.0 /100 WBCs. The refer ence range was not u sed to interpret th is result as normal/abnormal . NRBC x10^3 (test code See_Comment [Auto mated = 4396189401) message] The s ystem which generated this result transmitted reference range : 10*3/?L. The reference range was not used to interpret this result as normal/abnormal . GRAN MAT (NEUT) % 52.2 % (test code = 770-8) IMM GRAN % (test code 0.30 % = 6471072246) LYMPH % (test code = 32.8 % 736-9) MONO % (test code = 12.1 % 5905-5) EOS % (test code = 2.1 % 713-8) BASO % (test code = 0.5 % 706-2) GRAN MAT x10^3(ANC) 3.03 10*3/uL 1.99-6.95 (test code = 2614922530) IMM GRAN x10^3 (test 0-0.06 code = 9899145883) LYMPH x10^3 (test code 1.90 10*3/uL 1.09-3.23 = 731-0) MONO x10^3 (test code 0.70 10*3/uL 0.36-1.02 = 742-7) EOS x10^3 (test code = 0.12 10*3/uL 0.06-0.53 711-2) BASO x10^3 (test code 0.03 10*3/uL 0.01-0.09 = 704-7) Lab Interpretation Abnormal (test code = 29250-6) [facility] GLUCOSE (AUTOMATED)2022-05-16 01:24:31 Test Item Value Reference Range Interpretation Comments POCT GLU (test code = 6155357869) 123 mg/dL 70-110 H Lab Interpretation (test code = Abnormal 36603-4) [facility] GLUCOSE (AUTOMATED)2022-05-15 21:37:44 Test Item Value Reference Range Interpretation Comments POCT GLU (test code = 5687665404) 86 mg/dL 70-110 Lab Interpretation (test code = Normal 15796-7) [facility] GLUCOSE (AUTOMATED)2022-05-15 18:29:09 Test Item Value Reference Range Interpretation Comments POCT GLU (test code = 3058002614) 127 mg/dL 70-110 H Lab Interpretation (test code = Abnormal 09254-0) [facility] GLUCOSE (AUTOMATED)2022-05-15 13:06:12 Test Item Value Reference Range Interpretation Comments POCT GLU (test code = 5673074067) 138 mg/dL 70-110 H Lab Interpretation (test code = Abnormal 23284-8) [facility] METABOLIC PANEL (NA, K, CL, CO2, GLUCOSE, BUN, CREATININE, CA)2022-05-15 11:28:22 Test Item Value Reference Range Interpretation Comments NA (test code = 137 mmol/L 135-145 8647247020) K (test code = 3.5 mmol/L 3.5-5 8177478210) CL (test code = 102 mmol/L 98-108 1039278019) CO2 TOTAL (test code = 32 mmol/L 23-31 H 2748025273) AGAP (test code = 2-16 5411277638) BUN (test code = 13 mg/dL 7-23 7259928870) GLUCOSE (test code = 153 mg/dL 70-110 H 8976097220) CREATININE (test code = 0.81 mg/dL 0.6-1.25 6204560279) CALCIUM (test code = 6.8 mg/dL 8.6-10.6 L 7919247961) eGFR (test code = mL/min/1.73m2 0586617887) MATT (test code = MATT) Association of Glomerular Filtration Rate (GFR) and Staging of Kidney Disease* + --+ --+ ------+| GFR (mL/min/1.73 m2) ?| With Kidney Damage ?| ?Without Kidney Damage+ --------+ --------+ +| ?>90 ?| ?Stage one ?| ? Normal ?+ ---+ ---+ -------+| ?60-89 ?| ?Stage two ?| ? Decreased GFR ? + --+ --+ ------+| ?30-59 ?| ?Stage three ?| ? Stage three ? + --+ --+ ------+| ?15-29 ?| ?Stage four ? | ? Stage four ?+ ---+ ---+ -------+| ?<15 (or dialysis) ? ?| ?Stage five ? | ? Stage five ?+ ---+ ---+ -------+ *Each stage assumes the associated GFR level has been in effect for at least three months. ?Stages 1 to 5, with or without kidney disease, indicate chronic kidney disease. Notes: Determination of stages one and two (with eGFR >59mL/min/1.73 m2) requires estimation of kidney damage for at least three months as defined by structural or functional abnormalities of the kidney, manifested by either:Pathological abnormalities or Markers of kidney damage (including abnormalities in the composition of the blood or urine or abnormalities in imaging tests). Lab Interpretation Abnormal (test code = 72377-8) [facility] Only)2022-05-15 06:09:54 Test Item Value Reference Range Interpretation Comments ABO & RH (test code B Positive Performe d at [facility] = 20) Laboratory Serv [facility] [place] [address]Kemw Free: [phone] A No. [id number] [facility] HospitalMyoglobin, [id number] 04:34:46 Test Item Value Reference Range Interpretation Comments MYOGLOB S (test code 147.4 ng/mL See_Comment H [Autom ated = 6071082917) message] The system which generated this result transmitted reference range : <=121.0. The reference range was not used to interpret this result as normal/abnormal . MATT (test code = MATT) Biotin has been reported to cause a negative bias, interpret results relative to patient's use of biotin. Lab Interpretation Abnormal (test code = 81490-2) [facility] HospitalType [facility] Screen - The Type and Screen expires at midnight on the 3rd day after it was drawn. A current Type and Screen is required when RBCs are requested. For all other blood products, a Type and Scree n performed during the current hospitalizati...2022-05-15 04:09:41 Test Item Value Reference Range Interpretation Comments ABO & RH (test code B POSITIVE Performe d at [facility] = 20) Laboratory Serv [facility]3 [facility] s [address]Zaqe Free: [phone] A No. [id number] IAT (test code = Negative Performed a t [facility] 1185) Laboratory Serv [facility] [address]Ckcb Free: [phone] A No. [id number] [facility] [address] [facility] HospitalMagnesium, Tkyoe4639-60-67 04:03:52 Test Item Value Reference Range Interpretation Comments MAGNESIUM (test code = 6879727089) 0.8 mg/dL 1.7-2.4 L Lab Interpretation (test code = Abnormal 91720-1) [facility] HospitalIonized Iaplvep9430-56-66 04:03:22 Test Item Value Reference Range Interpretation Comments IONIZED CA (test code = 3.80 mg/dL 4.5-5.3 L 4530938478) PH SERUM (test code = 8484387871) 7.35-7.45 H Lab Interpretation (test code = Abnormal 89207-9) [facility] (NA, K, CL, CO2, GLUCOSE, BU, CREATININE, CA)2022-05-15 03:57:59 Test Item Value Reference Range Interpretation Comments NA (test code = 138 mmol/L 135-145 2771997800) K (test code = 2.7 mmol/L 3.5-5 LL 6157364389) CL (test code = 99 mmol/L 98-108 5136764783) CO2 TOTAL (test code = 32 mmol/L 23-31 H 5126870569) AGAP (test code = 2-16 4186122207) BUN (test code = 13 mg/dL 7-23 1723535391) GLUCOSE (test code = 155 mg/dL 70-110 H 2685719791) CREATININE (test code = 0.80 mg/dL 0.6-1.25 0891584314) CALCIUM (test code = 6.9 mg/dL 8.6-10.6 L 2971085574) eGFR (test code = mL/min/1.73m2 5210825660) MATT (test code = MATT) Association of Glomerular Filtration Rate (GFR) and Staging of Kidney Disease* + --+ --+ ------+| GFR (mL/min/1.73 m2) ?| With Kidney Damage ?| ?Without Kidney Damage+ --------+ --------+ +| ?>90 ?| ?Stage one ?| ? Normal ?+ ---+ ---+ -------+| ?60-89 ?| ?Stage two ?| ? Decreased GFR ? + --+ --+ ------+| ?30-59 ?| ?Stage three ?| ? Stage three ? + --+ --+ ------+| ?15-29 ?| ?Stage four ? | ? Stage four ?+ ---+ ---+ -------+| ?<15 (or dialysis) ? ?| ?Stage five ? | ? Stage five ?+ ---+ ---+ -------+ *Each stage assumes the associated GFR level has been in effect for at least three months. ?Stages 1 to 5, with or without kidney disease, indicate chronic kidney disease. Notes: Determination of stages one and two (with eGFR >59mL/min/1.73 m2) requires estimation of kidney damage for at least three months as defined by structural or functional abnormalities of the kidney, manifested by either:Pathological abnormalities or Markers of kidney damage (including abnormalities in the composition of the blood or urine or abnormalities in imaging tests). Lab Interpretation Abnormal (test code = 74459-1) [facility] HospitalPhosph[facility], [id number] 03:50:00 Test Item Value Reference Range Interpretation Comments PHOSPHORUS (test code = 6950979264) 2.2 mg/dL 2.5-5 L Lab Interpretation (test code = Abnormal 61856-1) [facility] HospitalHep[facility] Function Panel (ALB, T.PRO, BILI T, BU/BC, ALT, AST, ALK PHOS)2022-05-15 03:50:00 Test Item Value Reference Range Interpretation Comments TOTAL BILI (test code = 5268480010) 1.2 mg/dL 0.1-1.1 H BILI UNCON (test code = 4264963161) 1.0 mg/dL 0.1-1.1 BILI CONJ (test code = 7159038031) 0.0 mg/dL 0-0.3 T PROTEIN (test code = 2626945360) 7.2 g/dL 6.3-8.2 ALBUMIN (test code = 3660297847) 3.3 g/dL 3.5-5 L ALK PHOS (test code = 8284528477) 89 U/L 34-122 ALTv (test code = 1742-6) 20 U/L 5-50 AST(SGOT) (test code = 6824666708) 42 U/L 13-40 H Lab Interpretation (test code = Abnormal 41141-0) [facility] HospitalLipase, [id number] 03:50:00 Test Item Value Reference Range Interpretation Comments LIPASE (test code = 5685270950) 82 U/L 0-220 Lab Interpretation (test code = Normal 10054-9) [facility] HospitalAmylase, Zmtis1333-49-95 03:50:00 Test Item Value Reference Range Interpretation Comments ANNA (test code = 0340073545) 90 U/L 35-110 Lab Interpretation (test code = Normal 81715-4) [facility] HospitalProtrhrombin Time / [id number] 03:39:01 Test Item Value Reference Range Interpretation Comments PROTIME PATIENT (test See_Comment H [Auto mated message] code = 5964-2) The system [employer] generated this result transmitted ref erence range: 10.1 - 1 2.6 Seconds. The reference range was not used to int erpret this result as normal/abnormal . INR (test code = 6301-6) Nor mal INR <1.1; Warfarin Therap eutic range 2.0 to 3. 0 or 2.5 to 3.5, dep ending upon the indica tions. Lab Interpretation (test Abnormal code = 62008-0) [facility] HospitalaPTT[facility] 03:39:01 Test Item Value Reference Range Interpretation Comments APTT Patient (test code See_Comment H [Au tomated message] = 3173-2) The system [employer] generated this result transmitted ref erence range: 26 - 36 Seconds. The reference range was not used to int erpret this result as normal/abnormal . Lab Interpretation (test Abnormal code = 17547-6) [facility] HospitalCBC with Coiycczymyit2891-12-24 03:33:00 Test Item Value Reference Range Interpretation Comments WBC (test code = See_Comment [Automated 6690-2) message] The sy stem which generated this result transmitted reference range : 4.20 - 10.70 10*3/?L. The reference range was not used to interpret this result as normal/abnormal . RBC (test code = See_Comment L [Automated 789-8) message] The sy stem which generated this result transmitted reference range : 4.26 - 5.52 10*6/?L. The reference range was not used to interpret this result as normal/abnormal . HGB (test code = 9.1 g/dL 12.2-16.4 L 718-7) HCT (test code = 27.3 % 38.4-49.3 L 4544-3) MCV (test code = 97.2 fL 81.7-95.6 H 787-2) MCH (test code = 32.4 pg 26.1-32.7 785-6) MCHC (test code = 33.3 g/dL 31.2-35 786-4) RDW-SD (test code = 49.4 fL 38.5-51.6 08262-7) RDW-CV (test code = 13.8 % 12.1-15.4 788-0) PLT (test code = See_Comment [Automated 777-3) message] The sy stem which generated this result transmitted reference range : 150 - 328 10*3/ ?L. The reference r maria a was not used to interpret this result as normal/abnormal . MPV (test code = 10.2 fL 9.8-13 80011-9) NRBC/100 WBC (test See_Comment [Automat ed code = 9634781337) message] The system which generated this result transmitted reference range : 0.0 - 10.0 /100 WBCs. The refer ence range was not u sed to interpret th is result as normal/abnormal . NRBC x10^3 (test code See_Comment [Auto mated = 7227856921) message] The s ystem which generated this result transmitted reference range : 10*3/?L. The reference range was not used to interpret this result as normal/abnormal . GRAN MAT (NEUT) % 64.6 % (test code = 770-8) IMM GRAN % (test code 0.40 % = 5618124158) LYMPH % (test code = 19.6 % 736-9) MONO % (test code = 13.1 % 5905-5) EOS % (test code = 1.7 % 713-8) BASO % (test code = 0.6 % 706-2) GRAN MAT x10^3(ANC) 3.47 10*3/uL 1.99-6.95 (test code = 5845573886) IMM GRAN x10^3 (test 0-0.06 code = 2837649135) LYMPH x10^3 (test code 1.05 10*3/uL 1.09-3.23 L = 731-0) MONO x10^3 (test code 0.70 10*3/uL 0.36-1.02 = 742-7) EOS x10^3 (test code = 0.09 10*3/uL 0.06-0.53 711-2) BASO x10^3 (test code 0.03 10*3/uL 0.01-0.09 = 704-7) Lab Interpretation Abnormal (test code = 15412-9) [facility]ATED)2022-05-15 03:30:08 Test Item Value Reference Range Interpretation Comments POCT GLU (test code = 7211752444) 157 mg/dL 70-110 H Lab Interpretation (test code = Abnormal 22763-6) [facility] HospitalLamnic Acid Whole Xuwqb0449-11-30 03:28:57 Test Item Value Reference Range Interpretation Comments LACTIC ACID (test code = 1.63 mmol/L 0.5-2.2 1372728118) Lab Interpretation (test code = Normal 71127-4) [facility] HospitalCT, CHEST, WITH IV [id number] 11:55:00 Unlisted Reason for Exam - Click Yes and Enter Reason Below->YesUnlisted Reason for Exam->cancer of right kidney [facility] : 1960 Sex: MFINAL REPORT CT of the abdomen with and without contrast, CT of chest and pelviswith contrast Clinical History: Unlisted Reason for Examcancer of right kidney Technique: CT of the [...] use of iterative reconstructive technique. Comparison Film: April 11, 2021, November 19, 2020 Discussion: Visualized thyroid gland is unremarkable. No supra collicular, axillary, mediastinal or hilar lymphadenopathy. Heart is borderline enlarged. There is trace pericardial effusion. Scattered small pulmonary nodules are unchanged. No newmass or consolidation. No effusion. Central airways are patent, no bronchiectasis or bronchial wall thickening. There are at least three new metastatic deposits in the inferior right hepatic lobe, measuring 2.6 cm, 1.4 cm and 1.8 cm. A previously seen deposit in the peripheral right lobe is grossly unchanged. A heterogeneously enhancing metastatic lymph node in the neto hepatis has grown from 2 cm to 2.7 cm. No biliary ductal dilatation. Gallbladder appears normal. The spleen, pancreas, adrenal glands are normal. Left kidney is unremarkable. Right renal mass with invasion into the renal vein and IVC appears grossly unchanged. However, there is interval enlargement of several right retroperitonealmetastatic deposits. For example, one nodule anterior to the right kidney has grown from 9 mm to 2.1cm (series A3, image 77). Another deposit posteriorly has grown from 1 cm to 1.4 cm (image 75). Several right-sided omental/peritoneal deposits appear unchanged. No evidence of bowel obstruction, or abnormal bowel wall thickening. In the pelvis, bladder is unremarkable. Prostate gland is enlarged. No ascites. No new adenopathy. Bony structures demonstrate degenerative changes. There is a new lytic lesion in left inferior pubic ramus measuring 2.2 cm. Impression: Interval progression of liver metastasis, and right retroperitoneal metastasis. There is also a new lytic lesion in the left inferior pubic ramus, highly suspicious for metastasis. Grossly stable appearance of infiltrative right renal masswith renal vein and IVC invasion. No new disease is identified in the thorax. Signed: Lizzette Smith Verified Date/Time: 05/02/2022 11:55:12 Reading Location: [address] Ortho Consult Reading Room CT, [id number] 11:55:00Unlisted Reason for Exam - Click Yes and Enter Reason Below->YesUnlisted Reason for Exam->cancer of right kidneyIs this for enterography?->NoWill this procedure require oral contrast?->Yes[facility] : 1960 Sex: MFINAL REPORT CT of the abdomen with and without contrast, CT of chest and pelviswith contrast Clinical History: Unlisted Reason for Examcancer of right kidney Technique: CT of the [...] use of iterative reconstructive technique. Comparison Film: April 11, 2021, November 19, 2020 Discussion: Visualized thyroid gland is unremarkable. No supra collicular, axillary, mediastinal or hilar lymphadenopathy. Heart is borderline enlarged. There is trace pericardial effusion. Scattered small pulmonary nodules are unchanged. No newmass or consolidation. No effusion. Central airways are patent, no bronchiectasis or bronchial wall thickening. There are at least three new metastatic deposits in the inferior right hepatic lobe, measuring 2.6 cm, 1.4 cm and 1.8 cm. A previously seen deposit in the peripheral right lobe is grossly unchanged. A heterogeneously enhancing metastatic lymph node in the neto hepatis has grown from 2 cm to 2.7 cm. No biliary ductal dilatation. Gallbladder appears normal. The spleen, pancreas, adrenal glands are normal. Left kidney is unremarkable. Right renal mass with invasion into the renal vein and IVC appears grossly unchanged. However, there is interval enlargement of several right retroperitonealmetastatic deposits. For example, one nodule anterior to the right kidney has grown from 9 mm to 2.1cm (series A3, image 77). Another deposit posteriorly has grown from 1 cm to 1.4 cm (image 75). Several right-sided omental/peritoneal deposits appear unchanged. No evidence of bowel obstruction, or abnormal bowel wall thickening. In the pelvis, bladder is unremarkable. Prostate gland is enlarged. No ascites. No new adenopathy. Bony structures demonstrate degenerative changes. There is a new lytic lesion in left inferior pubic ramus measuring 2.2 cm. Impression: Interval progression of liver metastasis, and right retroperitoneal metastasis. There is also a new lytic lesion in the left inferior pubic ramus, highly suspicious for metastasis. Grossly stable appearance of infiltrative right renal masswith renal vein and IVC invasion. No new disease is identified in the thorax. Signed: Lizzette Smith MDReport Verified Date/Time: 05/02/2022 11:55:12 Reading Location: [address] Consult Reading Room S-[id number] 10:06:48 Test Item Value Reference Range Interpretation Comments POC-Creatinine 0.7 mg/dL 0.6-1.3 : TESTED AT [facility] [address] (test code = [facility] [address] [place] [address]: Head Sampler/Techni vipin ID = [id number] for EL RALPHFLORENCE POC-EGFR (test 106 mL/min/1.73M2 Interpretat ion of eGFR code = 93276-0) Values Stage Description Result G1 Hannah l or high >=90 G2 Mildly decreased 60-89 G3a Mildl y to moderately 45-5 9 G3b Moderately to s dre 30-44 G4 Severely dec reased 15-29 G5 Kidney Failu re <15Reported eGF R is based on the CKD-EPI 2021 equation that d oes not use a race coeffici ent Estimated GFR i s not as accurate as Cre atinine Clearance in pr edicting glomerular filt ration rate. Estimated GFR i s not applicable for dialysis patients [facility]-Lojqibpieb8171-40-47 10:06:48 Test Item Value Reference Range Interpretation Comments POC-Creatinine 0.7 mg/dL 0.6-1.3 : TESTED AT [place] [address] (test code = [facility] [address]6) [place] [address]: Head Sampler/Techni vipin ID = [id number] for FLORENCE HINSON POC-EGFR (test 106 mL/min/1.73M2 Interpretat ion of eGFR code = 07061-1) Values Stage Description Result G1 Hannah l or high >=90 G2 Mildly decreased 60-89 G3a Mildl y to moderately 45-5 9 G3b Moderately to s dre 30-44 G4 Severely dec reased 15-29 G5 Kidney Failu re <15Reported eGF R is based on the CKD-EPI 2021 equation that d oes not use a race coeffici ent Estimated GFR i s not as accurate as Cre atinine Clearance in pr edicting glomerular filt ration rate. Estimated GFR i s not applicable for dialysis patients [facility]Xploohiqlz8389-74-51 10:06:48 Test Item Value Reference Range Interpretation Comments POC-Creatinine 0.7 mg/dL 0.6-1.3 : TESTED AT [facility] 7[address] (test code = [facility] [place] [address]2) [place] [address]: Head Sampler/Techni vipin ID = [id number] for FLORENCE HINSON POC-EGFR (test 106 mL/min/1.73M2 Interpretat ion of eGFR code = 66552-7) Values Stage Description Result G1 Hannah l or high >=90 G2 Mildly decreased 60-89 G3a Mildl y to moderately 45-5 9 G3b Moderately to s dre 30-44 G4 Severely de creased 15-29 G5 Kidney Failure <15Reported eGF R is based on the CKD-EPI 2021 equation that d oes not use a race coeffici ent Estimated GFR i s not as accurate as Cre atinine Clearance in pr edicting glomerular filt ration rate. Estimated GFR i s not applicable for dialysis patients [facility] HospitalIdbioaetzh9950-98-27 10:06:48 Test Item Value Reference Range Interpretation Comments POC-Creatinine 0.7 mg/dL 0.6-1.3 : TESTED AT [place] [address] (test code = [facility] [address]-7) [place] [address]: Head Sampler/Techni vipin ID = [id number] for FLORENCE HINSON POC-EGFR (test 106 mL/min/1.73M2 Interpretat ion of eGFR code = 68418-9) Values Stage Description Result G1 Hannah l or high >=90 G2 Mildly decreased 60-89 G3a Mildl y to moderately 45-5 9 G3b Moderately to s dre 30-44 G4 Severely dec reased 15-29 G5 Kidney Failu re <15Reported eGF R is based on the CKD-EPI 202 equation that d oes not use a race coeffici ent Estimated GFR i s not as accurate as Cre atinine Clearance in pr edicting glomerular filt ration rate. Estimated GFR i s not applicable for dialysis patients [facility] CenterQLJSJKEZKL3446-17-72 10:06:48 Test Item Value Reference Range Interpretation Comments POC-CREATININ 0.7 mg/dL 0.6-1.3 : TESTED AT [facility] [address] ([address]) [facility] [place] (test code = [address]: Head Sampler /[employer]ric[employer] Studies Professor 1859) ID = [id number] for FLORENCE FLORENCE POC-EGFR 106 Interpretation of eGFR ([facility]) mL/min/1.73M2 Values Stage D escription (test code = Result G1 Hannah l or high 0) >=90 G2 Mildly decreased 60-89 G3a Mildl y to moderately 45-5 9 G3b Moderately to s dre 30-44 G4 Severely dec reased 15-29 G5 Kidney Failu re <15Reported eGF R is based on the CKD-EPI 202 1 equation that does not u se a race coefficientEsti mated GFR is not as accurate as Creatinine Trina stephenson in predicting glom erular filtration rate . Estimated GFR is not appl icable for dialysis patien COMPREHENSIVE METABOLIC [id number] 15:23:09 Test Item Value Reference Range Interpretation Comments GLUCOSE (test code = See_Comment H [Autom ated message] 2345-7) The system [employer] generated this result transmitted ref erence range: 70 - 99 MG/DL. The reference r maria a was not used to interpret this result as normal/abnor mal. BLOOD UREA NITROGEN See_Comment L [Automa anne marie message] (test code = 3091-6) The sys tem which generated this result transmitted ref erence range: 8 - 23 M G/DL. The reference r maria a was not used to interpret this result as normal/abnor mal. CREATININE (test code = See_Comment L [Au tomated message] 2160-0) The system [employer] generated this result transmitted ref erence range: 0.8 - 1. 4 MG/DL. The refe rence range was not u sed to interpret this result as normal/abnor mal. EGFR (test code = See_Comment [Automate d message] 59009-9) The system [employer] generated this result transmitted ref erence range: >60 ML/MIN/1.73. Th e reference range was not used to int erpret this result as normal/abnormal . BUN/CREAT RATIO (test See_Comment [Auto mated message] code = 3097-3) The system [employer] generated this result transmitted ref erence range: 6 - 28 R ATIO. The reference r maria a was not used to interpret this result as normal/abnor mal. SODIUM (test code = See_Comment [Automa anne marie message] 2951-2) The system [employer] generated this result transmitted ref erence range: 133 - 14 6 MEQ/L. The refe rence range was not u sed to interpret this result as normal/abnor mal. POTASSIUM (test code = See_Comment [Aut omated message] 5293-3) The system [employer] generated this result transmitted ref erence range: 3.5 - 5. 4 MEQ/L. The refe rence range was not u sed to interpret this result as normal/abnor mal. CHLORIDE (test code = See_Comment [Auto mated message] 2074-0) The system [employer] generated this result transmitted ref erence range: 100 - 11 2 MEQ/L. The refe rence range was not u sed to interpret this result as normal/abnor mal. CO2 (test code = See_Comment L [Automated message] 1963-03) The system [facility] generated this result transmitted ref erence range: 21 - 30 MEQ/L. The reference r maria a was not used to interpret this result as normal/abnor mal. CALCIUM (test code = See_Comment [Autom ated message] 75791-6) The system [employer] generated this result transmitted ref erence range: 8.5 - 10 .5 MG/DL. The refe rence range was not u sed to interpret this result as normal/abnor mal. PROTEIN TOTAL (test See_Comment [Automa anne marie message] code = 2885-2) The system [employer] generated this result transmitted ref erence range: 6.1 - 8. 1 G/DL. The reference r maria a was not used to interpret this result as normal/abnor mal. ALBUMIN (test code = See_Comment [Autom ated message] 80268-7) The system [employer] generated this result transmitted ref erence range: 3.4 - 4. 8 G/DL. The reference r maria a was not used to interpret this result as normal/abnor mal. GLOBULINS, SERUM, TOTAL See_Comment [Au tomated message] (test code = 13252-4) The sy stem which generated this result transmitted ref erence range: 1.9 - 3. 7 G/DL. The reference r maria a was not used to interpret this result as normal/abnor mal. A/G RATIO (test code = See_Comment [Aut omated message] 1759-0) The system [employer] generated this result transmitted ref erence range: 1.0 - 2. 6 RATIO. The refe rence range was not u sed to interpret this result as normal/abnor mal. BILIRUBIN TOTAL (test See_Comment [Auto mated message] code = 1975-2) The system [employer] generated this result transmitted ref erence range: <=1.2 MG /DL. The reference r maria a was not used to interpret this result as normal/abnor mal. ALKALINE PHOSPHATASE 71 U/L 30-132 (test code = 6768-6) AST (SGOT) (test code = 29 U/L 7-56 1920-8) ALT (SGPT) (test code = 25 U/L 3-47 FRANCISCO JAVIER TING PERFORMED AT 1744-2) [facility] [address] [place] [address] CLIA NO. [id number] Unle ss Otherwise Indic ated, All Testing Per formed At: [facility], [address] [place] [address] Laborator y Director: Ji Morton M.D. CLIA Number [id number] Cap Accreditation N o. Lab Interpretation Abnormal (test code = 05895-4) [facility]TR[facility]AB2480[facility]84-54 15:22:52 Test Item Value Reference Range Interpretation Comments MAGNESIUM (test code = See_[place] [address]-8) [facility]. [address] [place] [address] CLIA NO. [id number] Unle ss Otherwise Indic ated, All Testing Per formed At: [facility], [address] [place] [address] Laborator y Director: Ji Morton M.D. CLIA Number [id number] Cap Accreditation N o. [Autom ated message] The sy stem which generated this result transmit anne marie reference range : 1.6 - 2.6 MG/DL. The reference range was not used to int erpret this result as normal/abnormal . Lab Interpretation Abnormal (test code = 07527-1) [facility] W/AUTO DIFF WITH [id number] 14:59:48 Test Item Value Reference Range Interpretation Comments WHITE BLOOD CELL COUNT See_Comment L [Aut omated message] (test code = 30659-6) The sy stem which generated this result transmitted ref erence range: 3.5 - 11 .0 K/UL. The refer ence range was not u sed to interpret this result as normal/abnor mal. RED BLOOD CELL COUNT See_Comment L [Autom ated message] (test code = 23284-9) The sy stem which generated this result [...] as normal/abnor mal. HEMATOCRIT (test code = 34.7 % 40.0-51.0 L 82227-4) MEAN CORPUSCULAR VOLUME 99.4 fL 80.0-99.0 H (test code = 33750-4) MEAN CORPUSCULAR 31.2 PG 25.0-33.0 HEMOGLOBIN (test code = 96255-3) MEAN CORPUSCULAR See_Comment [Automated message] HEMOGLOBIN CONC (test The sy stem which code = 18744-5) generated th is result transmitted ref erence range: 31.0 - 3 6.0 G/DL. The refer ence range was not u sed to interpret this result as normal/abnor mal. RED CELL DISTRIBUTION 14.1 % 11.5-15.0 WIDTH (test code = 39252-6) NEUTROPHILS % (test code 63 % = 93749-7) LYMPHOCYTES % (test code 24 % = 04744-8) MONOCYTES % (test code = 9 % 52312-9) EOSINOPHILS % (test code 4 % = 54947-4) BASOPHILS % (test code = 0 % 67438-6) PLATELET COUNT (test See_Comment TESTIN G PERFORMED AT code = 19787-0) [facility] [place] [address] [place] [address] CLIA NO. [id number] [Aut omated message] The sy stem which generated this result transmit anne marie reference range : 130 - 400 K/UL. The reference range was not used to int erpret this result as normal/abnormal . NEUTROPHILS ABSOLUTE See_Comment [Autom ated message] COUNT (test code = The syste m which 69754-1) generated this result transmitted ref erence range: 1.50 - 7 .50 K/UL. The refer ence range was not u sed to interpret this result as normal/abnor mal. LYMPHOCYTES ABSOLUTE See_Comment L [Autom ated message] COUNT (test code = The syste m which 61661-3) generated this result transmitted ref erence range: 1.00 - 4 .00 K/UL. The refer ence range was not u sed to interpret this result as normal/abnor mal. MONOCYTES ABSOLUTE COUNT See_Comment [A utomated message] (test code = 15286-1) The sy stem which generated this result transmitted ref erence range: 0.20 - 1 .00 K/UL. The refer ence range was not u sed to interpret this result as normal/abnor mal. BASOPHILS ABSOLUTE COUNT See_Comment Un less Otherwise (test code = 10681-8) Indica anne marie, All Testing Perform ed At: [facility], [address] [place] [address] Laborator y Director: Ji Morton M.D. CLIA Number [id number] Cap Accreditation N o. [id number] [Autom ated message] The sy stem which generated this result transmit anne marie reference range : 0.00 - 0.20 K/UL. Th e reference range was not used to int erpret this result as normal/abnormal . Lab Interpretation (test Abnormal code = 41867-9) [facility] [id number] 18:18:11 Test Item Value Reference Range Interpretation Comments GLUCOSE (test code = See_Comment H [Autom ated message] 2345-7) The system whic h generated this result transmitted ref erence range: 70 - 99 MG/DL. The reference r maria a was not used to interpret this result as normal/abnor mal. BLOOD UREA NITROGEN See_Comment [Automa anne marie message] (test code = 3091-6) The sys tem which generated this result transmitted ref erence range: 8 - 23 M G/DL. The reference r maria a was not used to interpret this result as normal/abnor mal. CREATININE (test code = See_Comment L EFF ECTIVE 07/15/2021, 2160-0) [facility] HAS IMPLEME NTED THE NKF-ASN RECOMMENDED KD-EPI EGF R REFIT CALCULATION ZARINA T DOES NOT INCLUDE A COEFFICIENT FOR RACE. FOR MORE INFORM ATION, SEE ANNOUNCEMEN Norma [email or web address] OM/EGFR_CALC [Automated mess age] The system [facility] generated this result transmitted ref erence range: 0.8 - 1. 4 MG/DL. The refe rence range was not u sed to interpret this result as normal/abnor mal. EGFR (test code = See_Comment [Automate d message] 44511-7) The system [facility] generated this result transmitted ref erence range: >60 ML/MIN/1.73. Th e reference range was not used to int erpret this result as normal/abnormal . BUN/CREAT RATIO (test See_Comment [Auto mated message] code = 3097-3) The system [facility] generated this result transmitted ref erence range: 6 - 28 R ATIO. The reference r maria a was not used to interpret this result as normal/abnor mal. SODIUM (test code = See_Comment [Automa anne marie message] 8001-2) The system [facility] generated this result transmitted ref erence range: 133 - 14 6 MEQ/L. The refe rence range was not u sed to interpret this result as normal/abnor mal. POTASSIUM (test code = See_Comment [Aut omated message] 6443-3) The system [facility] generated this result transmitted ref erence range: 3.5 - 5. 4 MEQ/L. The refe rence range was not u sed to interpret this result as normal/abnor mal. CHLORIDE (test code = See_Comment [Auto mated message] 0417-0) The system [facility] generated this result transmitted ref erence range: 100 - 11 2 MEQ/L. The refe rence range was not u sed to interpret this result as normal/abnor mal. CO2 (test code = See_Comment H [Automated message] 1962-8) The system [facility] generated this result transmitted ref erence range: 21 - 30 MEQ/L. The reference r maria a was not used to interpret this result as normal/abnor mal. CALCIUM (test code = See_Comment [Autom ated message] 09902-8) The system [facility] generated this result transmitted ref erence range: 8.5 - 10 .5 MG/DL. The refe rence range was not u sed to interpret this result as normal/abnor mal. PROTEIN TOTAL (test See_Comment [Automa anne marie message] code = 2885-2) The system [facility] generated this result transmitted ref erence range: 6.1 - 8. 1 G/DL. The reference r maria a was not used to interpret this result as normal/abnor mal. ALBUMIN (test code = See_Comment [Autom ated message] 61717-3) The system [facility] generated this result transmitted ref erence range: 3.4 - 4. 8 G/DL. The reference r maria a was not used to interpret this result as normal/abnor mal. GLOBULINS, SERUM, TOTAL See_Comment [Au tomated message] (test code = 79280-6) The sy stem which generated this result transmitted ref erence range: 1.9 - 3. 7 G/DL. The reference r maria a was not used to interpret this result as normal/abnor mal. A/G RATIO (test code = See_Comment [Aut omated message] 1759-0) The system [facility] generated this result transmitted ref erence range: 1.0 - 2. 6 RATIO. The refe rence range was not u sed to interpret this result as normal/abnor mal. BILIRUBIN TOTAL (test See_Comment [Auto mated message] code = 1975-2) The system [facility] generated this result transmitted ref erence range: <=1.2 MG /DL. The reference r maria a was not used to interpret this result as normal/abnor mal. ALKALINE PHOSPHATASE 60 U/L 30-132 (test code = 6768-6) AST (SGOT) (test code = 38 U/L 7-56 1920-8) ALT (SGPT) (test code = 44 U/L 3-47 FRANCISCO JAVIER TING PERFORMED AT 1744-2) [facility] [place] [address] [place] [address] CLIA NO. [id number] Unle ss Otherwise Indic ated, All Testing Per formed At: [facility], [address] [place] [address] Laborator y Director: Ji Morton M.D. CLIA Number [id number] Cap Accreditation N o. Lab Interpretation Abnormal (test code = 13125-1) [facility] HospitalVlegcotlPBBLZYQDN6627-44-76 18:17:59 Test Item Value Reference Range Interpretation Comments MAGNESIUM (test code = See_[place] [address]-7) [facility] [place] [address] [place] [address] CLIA NO. [id number] Unl ess Otherwise Indic ated, All Testing Per formed At: [facility], [address] [place] [address] Laborator y Director: Ji Morton M.D. CLIA Number [id number] Cap Accreditation N o. [Autom ated message] The sy stem which generated this result transmit anne marie reference range : 1.6 - 2.6 MG/DL. The reference range was not used to int erpret this result as normal/abnormal . Lab Interpretation Abnormal (test code = 81691-2) [facility] W/AUTO DIFF WITH [id number] 17:41:46 Test Item Value Reference Range Interpretation Comments WHITE BLOOD CELL COUNT See_Comment [Aut omated message] (test code = 42279-7) The sy stem which generated this result transmitted ref erence range: 3.5 - 11 .0 K/UL. The refer ence range was not u sed to interpret this result as normal/abnor mal. RED BLOOD CELL COUNT See_Comment L [Autom ated message] (test code = 05696-2) The sy stem which generated this result [...] (test code = 33.5 % 40.0-51.0 L 81846-1) MEAN CORPUSCULAR VOLUME 103.4 fL 80.0-99.0 H (test code = 91306-1) MEAN CORPUSCULAR 32.1 PG 25.0-33.0 HEMOGLOBIN (test code = 06340-3) MEAN CORPUSCULAR See_Comment [Automated message] HEMOGLOBIN CONC (test The sy stem which code = 01219-4) generated th is result transmitted ref erence range: 31.0 - 3 6.0 G/DL. The refer ence range was not u sed to interpret this result as normal/abnor mal. RED CELL DISTRIBUTION 15.7 % 11.5-15.0 H WIDTH (test code = 37324-6) NEUTROPHILS % (test code 57 % NO TE: EFFECTIVE = 46530-9) 06/24/2021, REF ERENCE INTERVALS AND FLAGGING FORREL ATIVE (%) WBC DIFFERE NTIAL WILL BE ELIMINA ANNE MARIE REDUNDANT TOABS OLUTE COUNTS.SEE [email or web address] _[email or web address]_reporting_ update LYMPHOCYTES % (test code 25 % = 08511-6) MONOCYTES % (test code = 13 % 19319-0) EOSINOPHILS % (test code 4 % = 84248-5) BASOPHILS % (test code = 1 % 28359-7) PLATELET COUNT (test See_Comment TESTIN G PERFORMED AT code = 08544-0) [facility] [place]. [address] [place] [address] CLIA NO. [id number] [Aut omated message] The sy stem which generated this result transmit anne marie reference range : 130 - 400 K/UL. The reference range was not used to int erpret this result as normal/abnormal . NEUTROPHILS ABSOLUTE See_Comment [Autom ated message] COUNT (test code = The syste m which 53263-5) generated this result transmitted ref erence range: 1.50 - 7 .50 K/UL. The refer ence range was not u sed to interpret this result as normal/abnor mal. LYMPHOCYTES ABSOLUTE See_Comment [Autom ated message] COUNT (test code = The syste m which 66777-6) generated this result transmitted ref erence range: 1.00 - 4 .00 K/UL. The refer ence range was not u sed to interpret this result as normal/abnor mal. MONOCYTES ABSOLUTE COUNT See_Comment [A utomated message] (test code = 47370-3) The sy stem which generated this result transmitted ref erence range: 0.20 - 1 .00 K/UL. The refer ence range was not u sed to interpret this result as normal/abnor mal. BASOPHILS ABSOLUTE COUNT See_Comment Un less Otherwise (test code = 99359-7) Indica anne marie, All Testing Perform ed At[facility] [address] [place] [address] Laborator y Director: Ji Morton M.D. IA Number [id number] Cap Accreditation N o. [id number] [Autom ated message] The sy stem which generated this result transmit anne marie reference range : 0.00 - 0.20 K/UL. Th e reference range was not used to int erpret this result as normal/abnormal . Lab Interpretation (test Abnormal code = 88150-0) [facility] [id number] 19:26:39 Test Item Value Reference Range Interpretation Comments GLUCOSE (test code = See_Comment H [Autom ated message] 2345-7) The system [employer] generated this result transmitted ref erence range: 70 - 99 MG/DL. The reference r maria a was not used to interpret this result as normal/abnor mal. BLOOD UREA NITROGEN See_Comment [Automa anne marie message] (test code = 3091-6) The sys tem which generated this result transmitted ref erence range: 8 - 23 M G/DL. The reference r maria a was not used to interpret this result as normal/abnor mal. CREATININE (test code = See_Comment L [Au tomated message] 2160-0) The system [employer] generated this result transmitted ref erence range: 0.80 - 1 .40 MG/DL. The refe rence range was not u sed to interpret this result as normal/abnor mal. EGFR AA (test code = See_Comment [Autom ated message] 72070-9) The system [employer] generated this result transmitted ref erence range: >60 ML/MIN/1.73. Th e reference range was not used to int erpret this result as normal/abnormal . EGFR (test code = See_Comment [Automate d message] 60153-2) The system [employer] generated this result transmitted ref erence range: >60 ML/MIN/1.73. Th e reference range was not used to int erpret this result as normal/abnormal . BUN/CREAT RATIO (test See_Comment [Auto mated message] code = 3097-3) The system [facility] generated this result transmitted ref erence range: 6 - 28 R ATIO. The reference r maria a was not used to interpret this result as normal/abnor mal. SODIUM (test code = See_Comment [Automa anne marie message] 2951-2) The system [facility] generated this result transmitted ref erence range: 133 - 14 6 MEQ/L. The refe rence range was not u sed to interpret this result as normal/abnor mal. POTASSIUM (test code = See_Comment [Aut omated message] 2823-3) The system [facility] generated this result transmitted ref erence range: 3.5 - 5. 4 MEQ/L. The refe rence range was not u sed to interpret this result as normal/abnor mal. CHLORIDE (test code = See_Comment [Auto mated message] 2075-0) The system [facility] generated this result transmitted ref erence range: 100 - 11 2 MEQ/L. The refe rence range was not u sed to interpret this result as normal/abnor mal. CO2 (test code = See_Comment [Automated message] 1963-8) The system [facility] generated this result transmitted ref erence range: 21 - 30 MEQ/L. The reference r maria a was not used to interpret this result as normal/abnor mal. CALCIUM (test code = See_Comment [Autom ated message] 42168-9) The system [facility] generated this result transmitted ref erence range: 8.5 - 10 .5 MG/DL. The refe rence range was not u sed to interpret this result as normal/abnor mal. PROTEIN TOTAL (test See_Comment [Automa anne marie message] code = 2885-2) The system [facility] generated this result transmitted ref erence range: 6.1 - 8. 1 G/DL. The reference r maria a was not used to interpret this result as normal/abnor mal. ALBUMIN (test code = See_Comment [Autom ated message] 53257-2) The system [facility] generated this result transmitted ref erence range: 3.4 - 4. 8 G/DL. The reference r maria a was not used to interpret this result as normal/abnor mal. GLOBULINS, SERUM, TOTAL See_Comment [Au tomated message] (test code = 67015-8) The sy stem which generated this result transmitted ref erence range: 1.9 - 3. 7 G/DL. The reference r maria a was not used to interpret this result as normal/abnor mal. A/G RATIO (test code = See_Comment [Aut omated message] 1759-0) The system ic h generated this result transmitted ref erence range: 1.0 - 2. 6 RATIO. The refe rence range was not u sed to interpret this result as normal/abnor mal. BILIRUBIN TOTAL (test See_Comment [Auto mated message] code = 1974-2) The system ich generated this result transmitted ref erence range: <=1.2 MG /DL. The reference r maria a was not used to interpret this result as normal/abnor mal. ALKALINE PHOSPHATASE 76 U/L 30-132 (test code = 6768-6) AST (SGOT) (test code = 36 U/L 7-56 1920-8) ALT (SGPT) (test code = 42 U/L 3-47 FRANCISCO JAVIER TING PERFORMED AT 1744-2) [facility] [place] [place] [address] CLIA NO. [id number] Unle ss Otherwise Indic ated, All Testing Per formed At: [facility], [address] [place] [address] Laborator y Director: Ji Morton M.D. CLIA Number [id number] Cap Accreditation N o. [id number] Lab Interpretation Abnormal (test code = 30222-5) [facility] W/AUTO DIFF WITH [id number] 19:06:10 Test Item Value Reference Range Interpretation Comments WHITE BLOOD CELL COUNT See_Comment [Aut omated message] (test code = 34862-1) The sy stem which generated this result transmitted ref erence range: 3.5 - 11 .0 K/UL. The refer ence range was not u sed to interpret this result as normal/abnor mal. RED BLOOD CELL COUNT See_Comment L [Autom ated message] (test code = 60882-7) The sy stem which generated this result [...] (test code = 38.0 % 40.0-51.0 L 27659-5) MEAN CORPUSCULAR VOLUME 93.8 fL 80.0-99.0 (test code = 26867-9) MEAN CORPUSCULAR 29.9 PG 25.0-33.0 HEMOGLOBIN (test code = 84590-7) MEAN CORPUSCULAR See_Comment [Automated message] HEMOGLOBIN CONC (test The sy stem which code = 76329-3) generated th is result transmitted ref erence range: 31 - 36 G/DL. The reference r maria a was not used to interpret this result as normal/abnor mal. RED CELL DISTRIBUTION 13.5 % 11.5-15.0 WIDTH (test code = 79807-9) NEUTROPHILS % (test code 43 % 40.0-75.0 = 76716-1) LYMPHOCYTES % (test code 43 % 20.0-45.0 = 51622-8) MONOCYTES % (test code = 10 % 4.0-12.0 80430-4) EOSINOPHILS % (test code 3 % 0.0-7.0 = 73589-2) BASOPHILS % (test code = 0 % 0.0-2.0 84373-5) PLATELET COUNT (test See_Comment TESTIN G PERFORMED AT code = 74090-0) [facility], [address] [place] [address] CLIA NO. [id number] [Aut omated message] The sy stem which generated this result transmit anne marie reference range : 130 - 400 K/UL. The reference range was not used to int erpret this result as normal/abnormal . NEUTROPHILS ABSOLUTE See_Comment [Autom ated message] COUNT (test code = The syste m which 39472-5) generated this result transmitted ref erence range: 1.50 - 7 .50 K/UL. The refer ence range was not u sed to interpret this result as normal/abnor mal. LYMPHOCYTES ABSOLUTE See_Comment [Autom ated message] COUNT (test code = The syste m which 98397-5) generated this result transmitted ref erence range: 1.00 - 4 .00 K/UL. The refer ence range was not u sed to interpret this result as normal/abnor mal. MONOCYTES ABSOLUTE COUNT See_Comment [A utomated message] (test code = 14124-8) The sy stem which generated this result transmitted ref erence range: 0.20 - 1 .00 K/UL. The refer ence range was not u sed to interpret this result as normal/abnor mal. BASOPHILS ABSOLUTE COUNT See_Comment Un less Otherwise (test code = 25419-8) Indica anne marie, All Testing Perform ed At[facility], [address] [place] [address] Laborator y Director: Ji Morton M.D. CLIA Number [id number] Cap Accreditation N o. [id number] [Autom ated message] The sy stem which generated this result transmit anne marie reference range : 0.00 - 0.20 K/UL. Th e reference range was not used to int erpret this result as normal/abnormal . Lab Interpretation (test Abnormal code = 57820-2) [facility] [id number] 10:55:00Unlisted Reason for Exam - Click Yes and Enter Reason Below->YesUnlisted Reason for Exam->Cancer of right kidney [facility] 1960 Sex: MFINAL REPORT CT of the abdomen with and without contrast, CT of chest and pelviswith contrast Clinical History: Unlisted Reason for ExamCancer [...] contracted. Spleen, pancreas, and adrenal glands are unremarka ble. Infiltrative right renal mass with invasion of [...] wall thickening. Normal appendix. In the pelvis, bladderis normal. Prostate gland is enlarged. The previously [...] deposits. Stable pulmonary nodules. No new disease isidentified in the chest, abdomen or pelvis. Signed: Lizzette Smith MDReport Verified Date/Time: 110:55:35 Reading Location: [address] Ortho Consult Reading Room CT, [id number] 10:55:00Unlisted Reason for Exam - Click Yes and Enter Reason Below->Yes Unlisted Reason for Exam->Cancer of right kidney Will this procedure require oral contrast?->No [facility] : 1960 Sex: MFINAL REPORT CT of the abdomen with and without contrast, CT of chest and pelviswith contrast Clinical History: Unlisted Reason for ExamCancer [...] contracted. Spleen, pancreas, and adrenal glands are unremarka ble. Infiltrative right renal mass with invasion of [...] wall thickening. Normal appendix. In the pelvis, bladderis normal. Prostate gland is enlarged. The previously [...] deposits. Stable pulmonary nodules. No new disease isidentified in the chest, abdomen or pelvis. Signed: Lizzette Smith MDReport Verified Date/Time: 110:55:35 Reading Location: [address] Ortho Consult Reading Room CT abdomen/pelvis without & with IV [id number] 10:55:00Interface, External Ris In - 04/11/2021 10:[address] of the abdomen with and without contrast, CT of chest and pelvis with contrast Clinical History: Unlisted Reasonfor ExamCancer of right kidney Technique: CT of the abdomen is performed without IV contrast, followed by CT of chest, abdomen and pelvis performed with intravenous contrast administration and without oral contrast administration. This exam was performed according to our departmental dose optimizationprogram which includes automated exposure control, adjustment of [...] A stable 1 cm enhancing focus in segment2 is probably a hemangioma. No new liver [...] Smith Verified Date/Time: 04/11/2021 10:55:35 Reading Location: [address] Consult Reading [facility] [id number] 10:55:00Interface, External Ris In - 04/11/2021 10:57 [...] was performed according to our departmental dose optimizationprogram which includes automated exposure control, adjustment of [...] A stable 1 cm enhancing focus in segment2 is probably a hemangioma. No new liver [...] degenerative changes. No destructive bony lesion is fortunato ntified. Impression: Compared to February 06, 2021, no change in appearance of the infiltrative right renal mass with renal vein and IVC invasion, as well as hepatic, retroperitoneal, peritoneal metastatic deposits. Stable pulmonary nodules. No new disease is identified in the chest, abdomen or pelvis. Signed: Lizzette Smith MDReport Verified Date/Time: 04/11/2021 10:55:35 Reading Location: [facility] B1 C013X Ortho Consult Reading [facility] CONTRAST 2021-02-06 17:27:00Restaging RCC, please compare to prior. Pt in wheelchairRestaging RCC, please compare to prior. Pt in wheelchairUnlisted Reason for Exam - Click Yes and Enter Reason Below->YesUnlisted Reason for Exam->C64.1 (ICD-10-CM) - Cancer of right kidney (HCCode)Anesthesia:->None [facility] : 1960 Sex: MFINAL REPORT CT, CHEST, WITH IV CONTRAST, CT, ABDOMEN \\T\\ PELVIS, WITH IV CONTRAST HISTORY: Unlisted Reason for ExamC64.1 (ICD-10-CM) - Cancer of right kidney (HCCode) TECHNIQUE: CTof the chest, abdomen and pelvis is performed with intravenous contrast administration. This exam was performed according to our departmental dose optimization program which includes automated exposurecontrol, adjustment of the mA and/or kV according [...] Scattered solid pulmonary micronodules are unchanged. There isno new mass or consolidation. No effusion. Central airways are patent. In the periphery of right hepatic lobe, again seen is a metastatic deposit measuring approximately 3.3 x 1.9, was 3.4 x 1.7 cm, noconvincing change. A 10 mm hyperenhancing focus in [...] renal mass in the right kidney extending tothe right renal vein, and IVC is grossly [...] resolved and was most likely reactive. 6. Ovoid20 mm focus of hypoattenuation within the left median lobe of the prostate, of uncertain significance. A small intraprostatic fluid collection is not excluded, correlate for any signs or symptoms of prostatitis. Signed: Guillermo Eubanks [facility] Verified Date/Time: 02/06/2021 17:27:30 Reading Location: [facility] C013X [facility] Consult Reading Room CT, [id number] 17:27:00Restaging RCC, please compare to prior. Pt in wheelchairRestaging RCC, please compare to prior. Pt in wheelchairUnlisted Reason for Exam - Click Yes and Enter Reason Below->YesUnlisted Reason for Exam->C64.1 (ICD-10-CM) - Cancer of right kidney (HCCode)Will this procedure require oral contrast?->Yes [facility] : 1960 Sex: MFINAL REPORT CT, CHEST, WITH IV CONTRAST, CT, ABDOMEN \\T\\ PELVIS, WITH IV CONTRAST HISTORY: Unlisted Reason for ExamC64.1 (ICD-10-CM) - Cancer of right kidney (HCCode) TECHNIQUE: CTof the chest, abdomen and pelvis is performed with intravenous contrast administration. This exam was performed according to our departmental dose optimization program which includes automated exposurecontrol, adjustment of the mA and/or kV according [...] Scattered solid pulmonary micronodules are unchanged. There isno new mass or consolidation. No effusion. Central airways are patent. In the periphery of right hepatic lobe, again seen is a metastatic deposit measuring approximately 3.3 x 1.9, was 3.4 x 1.7 cm, noconvincing change. A 10 mm hyperenhancing focus in [...] renal mass in the right kidney extending tothe right renal vein, and IVC is grossly [...] resolved and was most likely reactive. 6. Ovoid20 mm focus of hypoattenuation within the left median lobe of the prostate, of uncertain significance. A small intraprostatic fluid collection is not excluded, correlate for any signs or symptoms of prostatitis. Signed: Guillermo Eubanks MDReport Verified Date/Time: 02/06/2021 17:27:30 Reading Location: [facility] C013X Ortho Consult Reading Room CT Chest with IV [id number] 17:27:00Interface, External Ris In - 02/06/2021 5:[address], CHEST, WITHIV CONTRAST, CT, ABDOMEN \\T\\ PELVIS, WITH IV [...] thyroid gland is unremarkable. No supraclavicular adenopathy. Previouslynoted mildly enlarged right axillary lymph node has resolved. No mediastinal or hilar adenopathy. Thr ee-vessel coronary artery calcifications. Borderline enlargement of the [...] identified. No biliary ductal dilatation, gallbladder is normal.Previously noted hypoenhancing area in the spleen has [...] within the left median lobe of the prostate,of uncertain significance. The urinary bladder is unremarkable. No ascites. No new adenopathy. Osseous degenerative changes. No suspicious osseous lesion. IMPRESSION: 1.No convincing change regarding the right renal mass with renal vein and IVC invasion. Retroperitoneal satellite nodules are unchanged. 2.Diminished size of the dominant right-sided peritoneal nodule. 3.Stable right hepatic lobe metastasis. 4.Unchanged solid pulmonary nodules. 5.Previously noted borderline-enlarged right axillary nodehas resolved and was most likely reactive. 6. Ovoid 20 mm focus of hypoattenuation within the left median lobe of the prostate, of uncertain significance. A small intraprostatic fluid collection is notexcluded, correlate for any signs or symptoms of prostatitis. Signed: Guillermo Eubankseport Verified Date/Time: 02/06/2021 17:27:30 Reading Location: [facility] B1 C013X Ortho Consult [facility]Pelvis [facility] IV [id number] 17:27:00Interface, External Ris In - 02/06/2021 5:[address], CHEST, WITHIV CONTRAST, CT, ABDOMEN \\T\\ PELVIS, WITH IV [...] thyroid gland is unremarkable. No supraclavicular adenopathy. Previouslynoted mildly enlarged right axillary lymph node has resolved. No mediastinal or hilar adenopathy. Three-vessel coronary artery calcifications. Borderline enlargement of the main pulmonary artery. Mild c ardiomegaly. A 10 x 5 mm subpleural nodule [...] identified. No biliary ductal dilatation, gallbladder is normal.Previously noted hypoenhancing area in the spleen has [...] within the left median lobe of the prostate,of uncertain significance. The urinary bladder is unremarkable. No ascites. No new adenopathy. Osseous degenerative changes. No suspicious osseous lesion. IMPRESSION: 1.No convincing change regarding the right renal mass with renal vein and IVC invasion. Retroperitoneal satellite nodules are unchanged. 2.Diminished size of the dominant right-sided peritoneal nodule. 3.Stable right hepatic lobe metastasis. 4.Unchanged solid pulmonary nodules. 5.Previously noted borderline-enlarged right axillary nodehas resolved and was most likely reactive. 6. Ovoid 20 mm focus of hypoattenuation within the left median lobe of the prostate, of uncertain significance. A small intraprostatic fluid collection is notexcluded, correlate for any signs or symptoms of prostatitis. Signed: Guillermo Eubanksort Verified Date/Time: 02/06/2021 17:27:30 Reading Location: [facility] C0[facility] Consult Reading Room [facility] Chest with IV [id number] 17:27:00Interface, External Ris In - 02/06/2021 5:[address], CHEST, WITHIV CONTRAST, CT, ABDOMEN \\T\\ PELVIS, WITH IV [...] thyroid gland is unremarkable. No supraclavicular adenopathy. Previouslynoted mildly enlarged right axillary lymph node has resolved. No mediastinal or hilar adenopathy. Three-vessel coronary artery calcifications. Borderline enlargement of the main pulmonary artery. Mild cardiomegaly. A 10 x 5 mm subpleural nodule in the anterior right upper lobe is without convincing nanette nge (series 3 image 258). Stable mild scarring [...] identified. No biliary ductal dilatation, gallbladder is normal.Previously noted hypoenhancing area in the spleen has [...] within the left median lobe of the prostate,of uncertain significance. The urinary bladder is unremarkable. [...] mm focus of hypoattenuation within the left m edian lobe of the prostate, of uncertain significance. A small intraprostatic fluid collection is not excluded, correlate for any signs or symptoms of prostatitis. Signed: Guillermo Eubanks MDReport Verified Date/Time: 02/06/2021 17:27:30 Reading Location: [facility] C013X Ortho Consult Reading Room [facility]Pelvis with IV [id number] 17:27:00Interface, External Ris In - 02/06/2021 5:[address], CHEST, WITHIV CONTRAST, CT, ABDOMEN \\T\\ PELVIS, WITH IV [...] has resolved. No mediastinal or hilar adenopathy. Th ree-vessel coronary artery calcifications. Borderline enlargement of the main pulmonary artery. Mildcardiomegaly. A 10 x 5 mm subpleural nodule in the anterior right upper lobe is without convincing change (series 3 image 258). Stable mild scarring in the subpleural left lower lobe/lingula. Scatteredsolid pulmonary micronodules are unchanged. There is no new mass or consolidation. No effusion. Central airways are patent. In the periphery of right hepatic lobe, again seen is a metastatic deposit measuring approximately 3.3 x 1.9, was 3.4 x 1.7 cm, no convincing change. A 10 mm hyperenhancing focusin segment 2 is also unchanged (coronal image 38) compared with 11/19/2020, previously characterized a s a hemangioma. No new liver mass is [...] Eubanks Verified Date/Time: 02/06/2021 17:27:30 Reading Location: [facility] B1 C013X [facility] Consult Reading [facility]Pelvis with IV [id number] 17:27:00Interface, External Ris In - 02/06/2021 5:[address], CHEST, WITHIV CONTRAST, CT, ABDOMEN \\T\\ PELVIS, WITH IV [...] thyroid gland is unremarkable. No supraclavicular adenopathy. Previouslynoted mildly enlarged right axillary lymph node has resolved. No mediastinal or hilar adenopathy. Three-vessel coronary artery calcifications. Borderline enlargement of the main pulmonary artery. Mild c ardiomegaly. A 10 x 5 mm subpleural nodule [...] identified. No biliary ductal dilatation, gallbladder is normal.Previously noted hypoenhancing area in the spleen has [...] within the left median lobe of the prostate,of uncertain significance. The urinary bladder is unremarkable. No ascites. No new adenopathy. Osseous degenerative changes. No suspicious osseous lesion. IMPRESSION: 1.No convincing change regarding the right renal mass with renal vein and IVC invasion. Retroperitoneal satellite nodules are unchanged. 2.Diminished size of the dominant right-sided peritoneal nodule. 3.Stable right hepatic lobe metastasis. 4.Unchanged solid pulmonary nodules. 5.Previously noted borderline-enlarged right axillary nodehas resolved and was most likely reactive. 6. Ovoid 20 mm focus of hypoattenuation within the left median lobe of the prostate, of uncertain significance. A small intraprostatic fluid collection is notexcluded, correlate for any signs or symptoms of prostatitis. Signed: Guillermo Eubanks Verified Date/Time: 02/06/2021 17:27:30 Reading Location: [address] Consult Reading Room [facility], [id number] 13:06:00Unlisted Reason for Exam - Click Yes and Enter Reason Below->YesUnlisted Reason for Exam->C64.1Will this procedure require oral contrast?->Yes [facility] 1960 Sex: MFINAL REPORT CT of the chest, abdomen and pelvis, with contrast Clinical History: Unlisted Reason for ExamC64.1 Technique: CT of the chest, abdomen and pelvis is performed with intravenous contrast administration. This exam was performed according to our departmental dose optimization program which includes automated exposure control, adjustment of the mA and/or kV according to pat ient's size and/or use of iterative reconstructive technique. Comparison Film: July 12, 2020 andMay 10, 2020 Discussion: Visualized thyroid gland is normal. No supraclavicular adenopathy. Thereis interval enlargement of a right axillary lymph node, measuring approximately 1 cm. No mediastinalor hilar adenopathy. The main pulmonary artery is enlarged measuring 3.4 cm. Heart is also enlarged,trace pericardial effusion. A 7 mm subpleural nodule in the anterior right upper lobe is unchanged (image 34). Stable mild scarring in the left lower lung. Scattered tiny pulmonary nodules are unchanged. There is no new mass or consolidation. No effusion. Central airways are patent, no bronchiectasis,or bronchial wall thickening. In the periphery of right hepatic lobe, again seen is a metastatic deposit measuring approximately 3 x 1.8 cm. No new liver mass is identified. No biliary ductal dilatation, gallbladder is normal. A hypoenhancing area in the spleen is new, measuring up to 3.8 cm, somewhatwedge-shaped, most likely an infarct. Adrenal glands are [...] wall thickening. No pericecal inflammatory change. In thepelvis, bladder is unremarkable. The prostate gland is [...] MDReport Verified Date/Time: 11/19/2020 13:06:19 Reading Location: [facility] C013X Ortho Consult Reading Room CT, CHEST, WITH IV [id number] 13:06:00Unlisted Reason for Exam - Click Yes and Enter Reason Below->YesUnlisted Reason for Exam->C64.1 [facility] : 1960 Sex: MFINAL REPORT CT of the chest, abdomen and pelvis, with contrast Clinical History: Unlisted Reason for ExamC64.1 Technique: CT of the chest, abdomen and pelvis is performed with intravenous contrast administration. This exam was performed according to our departmental dose optimization program which includes automated exposure control, adjustment of the mA and/or kV according to pat ient's size and/or use of iterative reconstructive technique. Comparison Film: July 12, 2020 andMay 10, 2020 Discussion: Visualized thyroid gland is normal. No supraclavicular adenopathy. Thereis interval enlargement of a right axillary lymph node, measuring approximately 1 cm. No mediastinalor hilar adenopathy. The main pulmonary artery is enlarged measuring 3.4 cm. Heart is also enlarged,trace pericardial effusion. A 7 mm subpleural nodule in the anterior right upper lobe is unchanged (image 34). Stable mild scarring in the left lower lung. Scattered tiny pulmonary nodules are unchanged. There is no new mass or consolidation. No effusion. Central airways are patent, no bronchiectasis,or bronchial wall thickening. In the periphery of right hepatic lobe, again seen is a metastatic deposit measuring approximately 3 x 1.8 cm. No new liver mass is identified. No biliary ductal dilatation, gallbladder is normal. A hypoenhancing area in the spleen is new, measuring up to 3.8 cm, somewhatwedge-shaped, most likely an infarct. Adrenal glands are [...] wall thickening. No pericecal inflammatory change. In thepelvis, bladder is unremarkable. The prostate gland is [...] MDReport Verified Date/Time: 11/19/2020 13:06:19 Reading Location: [address] Consult Reading Room [id number] 10:57:00 Test Item Value Reference Range Interpretation Comments POC-Creatinine (test 0.8 mg/dL 0.6-1.3 : TESTE D AT [facility] 2492 code = 1859) [facility] 1220 0: Head Sampler/Techni vipin ID = [id number] for FLORENCE HINSON POC-EGFR (test code 120 mL/min/1.73M2 = 1860) [facility]-[id number] 10:57:00 Test Item Value Reference Range Interpretation Comments POC-Creatinine (test 0.8 mg/dL 0.6-1.3 : TESTE D AT [facility] 7200 code = 1859) [facility] 7703 0: Head Sampler/Techni vipin ID = [id number] for FLORENCE HINSON POC-EGFR (test code 120 mL/min/1.73M2 = 1860) [facility]-[id number] 10:57:00 Test Item Value Reference Range Interpretation Comments POC-Creatinine (test 0.8 mg/dL 0.6-1.3 : TESTE D AT [facility] 7200 code = 1859) [facility] 7703 0: Head Sampler/Techni vipin ID = [id number] for FLORENCE HINSON POC-EGFR (test code 120 mL/min/1.73M2 = 1860) [facility]-[id number] 10:57:00 Test Item Value Reference Range Interpretation Comments POC-CREATININE 0.8 mg/dL 0.6-1.3 : TESTED AT [facility] ([facility]) (test [address] [facility] code = 1859) [facility] 7 7030: Head Sampler/Techni vipin ID = [id number] for FLORENCE FLORENCE POC-EGFR 120 mL/min/1.73M2 ([facility]ER) (test code = 1860) CT, [id number] 14:49:00Unlisted Reason for Exam - Click Yes and Enter Reason Below->YesUnlisted Reason for Exam->c64.1 [facility] : 1960 Sex: MFINAL REPORT CT Chest, abdomen, and pelvis with contrast History:Renal cell carcinoma Comparison:02/15/2020 Technique: serial axial imaging was performed following up to 100cc of nonionic iodinated intravenous contrast as per departmental protocol. [...] effusion. No thoracic aortic aneurysm or dissection. Nocentral pulmonary arterial filling defect. Patent central airways. No pleural effusion or pneumothorax. There are multiple bilateral stable subcentimeter pulmonary nodules which measure up to 7 mm in size. No new pulmonary opacity is seen. Unremarkable appearance of pancreas and spleen. The previous focus of enhancement within the periphery of segment 7/6 of the liver demonstrates no significant change in size. The liver and gallbladder are otherwise unremarkable. Again noted is a recurrent tumor within the inferior aspect of the right kidney extending into the right renal vein and inferior vena cava. There are also surrounding satellite tumor nodules within the right pararenal space. These lesions demonstrate a slight decrease in size. For example, tumor nodule within the right pararenal space on axial image 67 currently measures 0.9 cm, previously 1.5 cm. Unremarkable appearance of the adrenalglands, left kidney, ureters, and urinary bladder. . No small or large bowel obstruction. No apparent bowel wall thickening. No findings to indicate acute appendicitis. Peritoneal nodules have decreased in size. For example, nodule within the right paracolic gutter currently measures 16 mm in size, pre viously 2.4 cm. No abdominal aortic aneurysm. No [...] MDReport Verified Date/Time: 07/12/2020 14:49:15 Reading Location: [address] Reading Room CT, CHEST, WITH IV [id number] 14:49:00Unlisted Reason for Exam - Click Yes and Enter Reason Below->YesUnlisted Reason for Exam->c64.1 [facility] : 1960 Sex: MFINAL REPORT CT Chest, abdomen, and pelvis with contrast History:Renal cell carcinoma Comparison:02/15/2020 Technique: serial axial imaging was performed following up to 100cc of nonionic iodinated intravenous contrast as per departmental protocol. [...] effusion. No thoracic aortic aneurysm or dissection. Nocentral pulmonary arterial filling defect. Patent central airways. No pleural effusion or pneumothorax. There are multiple bilateral stable subcentimeter pulmonary nodules which measure up to 7 mm in size. No new pulmonary opacity is seen. Unremarkable appearance of pancreas and spleen. The previous focus of enhancement within the periphery of segment 7/6 of the liver demonstrates no significant change in size. The liver and gallbladder are otherwise unremarkable. Again noted is a recurrent tumor within the inferior aspect of the right kidney extending into the right renal vein and inferior vena cava. There are also surrounding satellite tumor nodules within the right pararenal space. These lesions demonstrate a slight decrease in size. For example, tumor nodule within the right pararenal space on axial image 67 currently measures 0.9 cm, previously 1.5 cm. Unremarkable appearance of the adrenalglands, left kidney, ureters, and urinary bladder. . No small or large bowel obstruction. No apparent bowel wall thickening. No findings to indicate acute appendicitis. Peritoneal nodules have decreased in size. For example, nodule within the right paracolic gutter currently measures 16 mm in size, pre viously 2.4 cm. No abdominal aortic aneurysm. No [...] MDReport Verified Date/Time: 07/12/2020 14:49:15 Reading Location: [address] Consult Reading Room [id number] 11:20:00 Test Item Value Reference Range Interpretation Comments POC-CREATININE 0.8 mg/dL 0.6-1.3 : TESTED AT [facility] ([facility]) (test [address] code = 1859) A, [facility] 7 6430: Head Sampler/Techni vipin ID = [id number] for FLORENCE FLORENCE POC-EGFR 121 mL/min/1.73M2 ([facility]) (test code = 1860) Tissue [id number] 05:43:00 Test Item Value Reference Range Interpretation Comments Case Report (test code Surgical Pathology = 104) Report Case: [id number] Authorizing Provider: Melinda Redding MD Collected: 05/10/2020 11:54 AM Ordering Location: [address] Received: 05/10/2020 12:35 PM Service Pathologist: Ruiz Retana MD Specimen: Abdominal, peritoneal mass biopsy DIAGNOSIS (test code = [id number] 3220) FuZzEwMzNcZnRuYmpcdWMx IHtccnRmMVxlcGljOTIwMF hkldStPRJrsVFdM7Qiaqlv LXoiMH0oAD6jlDirmBLxrY YuNWOuJmDbg8ayy298hLQo l9brYTFPdfrcuHf3jFgmH3 3zl7Z2XsjtW25eqUKkIOle bGFpblxmczIwIFBBUlQgQS WQQGRCTD9ZCZWJJY4MD7Fm KJLIV4DUFJpcvLJiHSCHVb UWALAHBCjvJ6YJJ5sCS47H JjxdTKSnU7PBFBEPSAmXY8 ZQIXHiQ86RXCNDGH4glFBc dTbydiKkWCrwm6IoIJxpPN UgDA3auKrbZVYsQI6aADYm O9aslL9pugh5PzIrNVYbDd U6SASsloX5Fjh9DKRnWHbz r3exv7MdRAQfWAd9oFprQu FhXKKrv6ggmdYnIjDqJMFc MPBiLEGqpUMuO262i4osn1 vjmlVhdLQ4TSScZKS7AHol tgRtvsB3YIpwdEDyVoH7BS tccmVkMFxncmVlbjBcYmx1 JKEbH955JZD0mNzjo9isNH C1IOLqALEvTxMlAa0mfOUd J900CVDjHFHOAMVtnVi1DG VnznKfkeOijHASc050A172 y3irEWPufkZftDcRfckhw2 ruX869WLImsHJtotTbVhIa WSWbbPRnmRY9WUNpTP1jcu owVMqjJJywAEVrwpQ5SYDp fNKcK6WwMRYuDN0qszdkVO Y9FXxbEMXfVGD1JcQvVUEj h5Dgqiv6OgDvgq3isc20BE U0u1CcjFtjWKC4XKT0OeHa Ng7xfUVkLUEpTP6oFgKsdC YzQYEnzu26kZboTNmzAPR5 QCCxhtKxr0Eic4evXyQbks UtL0zbN5VlEUJuMJMyKIQg VqShufLwb4Hei9VtnHNgdW l0f1faBNJrVASvtJluy1vw GAR3XTKkqXYmI5cfsY8oLT PlTS2spsakk1okUWzrRNor VUJggXL3thT2LHDzaRJzI1 OsyW2kSKNfUKehACNupio2 AmDgVz0aoSPloPacYSjqGc twYWdlXHBnbmNvbnRccGdu ZGVjXHBsYWluXHBsYWluXG YwXGZzMjRccWxcbGFuZzEw MzNcaGljaFxmMVxkYmNoXG IrWVlkK3wbObUtJvTmXqt2 JDGgnXYyZWLzCoz8TLThyV DfHDARqPckzW7pQZDuaHks nQ4xdVF2XLOggmCbuMZDyZ 1oYRDHdC2hIsR1NpHkUrB8 MNR3FGJtkZOtgN6= COMMENT (test code = y2nwlRUqWOLruEG6GnViHI 2141) Bqk1igy2YsjWMwmVSaKJos yFUetvBmlc96fNZ0bQ46SI 9xCYJzCwK8UQIossJ7Gjk8 KZGqHYYjpDLoO534n7xte5 ttqsQklJG4gBceAJVkIEJe BPiwMTTvKrKpPFqyrT7go8 tfH9HsHUDuF4Tmy87hHLWw zZ5hc2FhNQWqDIQjK63vGE LfAGJwvRPzHjqcrKM5NA1f QGOis4D0JBEahaDnkNQfJL BcaXFzTAX8eFBlrJjemoKb ie11eIQbvJVob5ZiABQdZH G0bB4hbfTjFOhxlsOlQWNw RBXbT4nlDUGaO5IzcPTnv3 GkyC0dw4e6PeIKzE56hu7c hCY9d0UwYD3fM0TgDHE5kH QjDGPlyXDvBb0ykFDsRT7e TWIqq7NyEOPrSLZzoK5fy4 RqJNZiNDAvYLY6eC6tmeCt UYzmeuD3czTqHSDyr8YxgC k4ISGmd4PgSXLBGWHhxfBp YZ8GG6DqCVZwwYIlwDfjdE Gbb4j9kSX6xRPdekUky3E1 HUKoC6ywcxwzGRjxtAzzhF 1tbGZfHjUnBI4awRAxIDmy EMEmqnMgev7qGF5yVZZbzs 0= CPT Code(s) (test code p2azmVFjXGXzeKF6XfIeZL = 3357) Xdt8apw7BveJCdcYIgIZdv sAKkhvYifg53gME6gT44LG 5oYXDjGoT6KHLdnhI1Dzp9 CQCkJQJjdAXxC953m0gys9 cutgLfxFO0cPnxSKWsDXBy YWluXGZzMjAgODgzMDUsID w0DqAvVZY4TNT7FQqoOAL8 CLINICAL HISTORY (test a8ldmNLxBKLdgNBeJmFgXC code = 3356) AvPJQwz4moGGWczEKvMjJt MzNcZnRuYmpcdWMxXGRlZm Gyp6lht805oCEnz8ybGZKb TmY5oUZyJVHtwJUhX451n9 sxw0qlijOlpGY0XWJoYVV8 XUwakkAllwB7SZinkPAyOr G8FEbeihNvMWgmwdLqzbAk Nlq0XZZrB194DVN4iDbux2 ipELC2GQLaZNNvMnCfWq9o zDGnN912PKEwNHTZWNDnmP h7FHJkjaVzmuDezSKHu903 G870i9gsYSHplwFwwZdEch jgl8ghA314AIOtyLJyxzJq RrBiAVRukEKnnKT5WZZoWG 9crljnYnOfEL7vugxyVtZq FB1rnfz3HsGgHQ4xytldAy DgBAahIEMnbpasXLYxm7Ua tsefSR8zZ2Bqo8H8nY5lrA AuQRHviDMcYjGwBDXsqh4g kIAmVPpbk6BdNKY9apC3nV SxwRDlJDHkHR32Jeppd0Vs NxsiOER9PJUubbHkn1Eej2 fkGtSnfjDqV6bxL2JnLIVq THGeQYUgZbMdkqQqx8Mcu8 JwmVNgsUo4s7cmYKNoPPQi bRcld9gnOTL3JTRgI8E4dF Pka2ljDAhnNKVevZT3nvdf RHmkXYMlfdK0wbhzGFssAB IbsOI2jyrdQIynMZWnVvH1 bfanKPerKYElZKY0RXkbm9 42FQG3KRlkGxpbCBdyIPZm bmNvbnRccGduZGVjXHBsYW luXHBsYWluXGYwXGZzMjRc fKbxjVkusR1vMkSmFoSnNP egKX0fUSChK8hqvXVkHDIp MIBsS9qtOwDgdI5wcKtoRO afblUkCAIjHOPiNDboJA6t QCKhnRykcdTryXtzmI3weP 5ccGFyfQ== SPECIMEN SOURCE (test f0ygfWNlKWPtbNN5HsSuNW code = 3377) Ope2ypt4CqtQThlBZxTSdx pTEviqDbnu00mVB5cG83OK 7kNOXdTuJ3DTVeimF7Fns6 MKTyYNLxgYKdZ087p1lkx9 qtdnPmcAP4oUtfWANeFVZw YWluXGZzMjAgUGVyaXRvbm VhbCBtYXNzXHBhcn0= GROSS DESCRIPTION (test a8tdoMTqCRKjfKFhUkGkRA code = 3366) IiVFTuy3ovHNVxqNVzLdPy MzNcZnRuYmpcdWMxXGRlZm Iyd3zqz537aVOjf3cdBUUp BzP3mUYqRAFuvVCvC293g6 cos6wzjdLpqKH4ZVDvHQZ6 JNeqmvWhyjS1VWnnyBPpTm G0KXgmksJjJVjasrNvcyCt Fda7AVVdW034RMH2sHmxb8 hoICX8QYUnTHVwEbTgXa0p uONfD900RZTzPDMKDLGfaH j3DKLidgAqlaYvbTMVn345 E222j3ylXXFtcqTdeCmFyt tnk5orY775BRKvyKIexjBl TzDgHPNsxDWejCB3MCLqWA 7xgsnxFyQbIG7vlsccEvBp RR5vutm5XnEmCL7soeixKy YoYHhnLEZjfkagYKFfl5Hp qxeqCG2iT9Rdh5E8bS6vxL XhKKDbdWIlMaEhWWMsya2x yMQmKMekx9LcZII0bhO8qG EusOXuEUNwBO74Ihwam4Cf NiamEGP9JXMgzoWec1Rwh6 xoNuDvfxInE2qnW9UgXAIl EYElCRPtZbAqdeFta6Qnw9 QofNIuiXl7x5klECBwQJEl kHsii0haNBS6DBOpD4X9dI Ori6wtPBiaSSVlnYF7ooia NVkwTGIxduM5jbtbKFytXK ZzqLK5fqvwVQloENWaOuW7 scljRKtkKEIzTHK7YOqdw6 52SOB1EMlmCrfqZTugVEMs bmNvbnRccGduZGVjXHBsYW luXHBsYWluXGYwXGZzMjRc bHRycGFyXHFsXHBsYWluXG YwXGZzMjBcbGFuZzEwMzNc aGljaFxmMFxkYmNoXGYwXG tnI1teTaPoQgIuRFATHDBg oFNrPGTydeJuo3PkNLqykt BsYWJlbGVkIHdpdGggdGhl CWLzlYipphMikdQjKO3kQD NsWSYyE3VoAVScF42nFVNy sN3oKNQtAV1xMNVdGvRxdO svTXshIAYbQWH6v67tiFxa B5IvHF4rMXXjsl04kHs0VD Buj5X1RIPlc8V8DFA6qTA5 KI3iQOP7hjYwIJ30XGggRD 76PBqoPA7zMEJvSOtzRUMt E6LqR1E7LH0bGOteBDHzWM TtpILrDYsaZVO7Hh8boKEd DZVaasQ6b1TxJUZffTrbw8 afFiKlkRw6gnI9yQ9sENhk SSSji9XwnYGpKJWgIpBHBL IvZXcgXHBhcn0= MICROSCOPIC DESCRIPTION b4vgvUAaHEGerES6GeJbQC (test code = 3371) Egu7pwu7RtwPWudAVuCVhz pBCznaEltq38wQP8aC64DJ 0tDAIbGvQ8KIPpmiU7Cuj4 AAZdLHDjxYWrW713p1eqt8 zsqyNgjVM0uJuvZNNzDPKz VXhfETVhZwZaDSZcVp7mkG VkLiBccGFyfQ== SPECIAL STUDIES (test n2qujUSsBHDjvTR9OpNzCP code = 3376) Mbt8dxc0JmnBGacTDhJQyq aANldbXdta06wEG4gD27VA 4dMNEqRrE9ASPvimV4Vwx3 BWAgTFMyhBKgR706BZIaNC DgnMzigbh2xO02OBIrgQ3m gLLjRCm3NRPkflHmhKeozC 1rBqUbTqOdRqBAgKAhbB57 BQKlbdT5NJEif10bx1RsmM whwbSbJFTjRBisS8q1YOTt IHPfYEO4z2Ral7XwkN9ycD 9xyFrehE5pmGKokVG5npcy t3Qdg4OpO5gjdQHkuJRydk LgDFDbgbWQYM5PEuKTUZ6p CTOOEAwlYB4ZF7JqdLUlJD MzvjUth5dfQ9qtECEvWHH0 AX9zdzUjDxKbXR7wxN33o1 Ybx17kr75ujJ9bpXCfcuJz P90mqRSpkZPrp3PeGACxhk QxyAP8BAOxXIjziavzs4x7 aKO7eHKweTQghBA5fDErvZ PqYJAGqXOcFLTde565qw7j OKFllAUunsDweN7fMFbflp nvxXMeMT8fQOHmZOKcVKRb GB74ocVeUN6hfQTgz7syqb WguWYwz0InxPH2DNAygUPx wimoIp4yDQ16IZDzEWondG 6iwBWxwxFjCM0aZV3fU2K7 zIVxSOMgqnUty5wbSThvLT 4gYXZhaWxhYmxlIGFyZSBl obDewDY8VOSggXWyMNMojO EmUAvpsOWxs2xue1KfE2xl mFevjDZ9OIQpE7gedWYueU M5DXO8fU9sYHpngaGbACWn w9UaNXAhMDXgHlG6pL8kTD X8IfJJyYryPBT2AyM9BUwc LSTtIF9eCXiiFNgvN8EjsI IvQCKGWZUpi8slS9awDTFy z1HtuB4abRP0eIDyZUTdpX R9MYGzXRE8OThaoQRzJMHr NQXeiNPtyTLyHz8xxWQeM6 FwB5ilgmYucKYcwHF6rNAy QLrrlvMpDDF8HLNlkR1xTB 9bZAMqmRLoCZ1thWTqOPOi BFTcATFiKDXhl2LqCQAszw 57NUYcSfxipSkcTPCoEc0a Jb7iSDTdieOgGOV3VqQRDJ 5hpgepgAFqhZhaxg2iOJfz GHEPQTLaAYJxTLI2DUJigK 8vISI8yIM2YRF3C5jmA7xh YSEhrtVaHU4lKMIjpALzlz PhLGxqIZ3dbIQvVEBzr8Bn xdkzRUAtWIZ3QPR9QNphXS UwMVMeKa8wTVQmjM0oE6Cg JVC8zoVxp6AwKgUQzYSntT 44xLNagc42XPEoMUQzG0Rn ZGVkIGFzIGludmVzdGlnYX Nca13jnRTfxbJmm4VjxbRm RCOhJ6mkDVJnxAClxHSoa9 MfwD9kcPKuqiEoXPW3cEOa KKQqeJ0oYYYvmQvaDNTgaO 5eQ2VlWXrhBy2yHPBbpptc UY3oiq16CE5ccsGcFX0pbu IzBY79cpZjEoPoFYb9VIyO NOzKIJl4KGOcwrKmgMGbhY TiBRZovM3ymOMeMa2dnIFb aWdoIGNvbXBsZXhpdHkgY2 chhxqmSUsodDGmm3FiuS9j nWX2QJT9hK0hDjgqPRM3 Gross assessment was [facility] performed at ([facility], = 2777) Department of Pathology, [address] [place] [id number], Technical component was [facility] performed at ([facility], = 2778) Department of Pathology, [address] [place] [address], Professional component [facility] was performed at ([facility], code = 2779) Department of Pathology, [address] [place] [address], [facility] [id number] 05:43:00 Test Item Value Reference Range Interpretation Comments Case Report (test code Surgical Pathology = 104) Report Case: [id number] Authorizing Provider: Melinda Redding MD Collected: 05/10/2020 11:54 AM Ordering Location: [address] Received: 05/10/2020 12:35 PM Service Pathologist: Ruiz Retana MD Specimen: Abdominal, peritoneal mass biopsy DIAGNOSIS (test code = [id number] 3220) FuZzEwMzNcZnRuYmpcdWMx IHtccnRmMVxlcGljOTIwMF oizdVaDCHwbFWqQ4Lvqihn HSghMY2fYQ8ruQpbnOEaxW JeCYQwMeOkc9paw269aRZp o0xyJXVWbiwomAt3lWgaW4 7ny8E4RooxD40zrTNnAJmg bGFpblxmczIwIFBBUlQgQS ZTCOMBGE0CTVKMQG0ZE2Fq UJITJ8KUVHqonNQuSSTZAz MLTWZUBVopV1MWP5qNY86H RietXNFeE3ZMWQGWXZvRX8 MRRZAfC61NJEREUP5rvLOp wUkctxXcVKitu1KqGDaeWB QiLU8feSxxAGKpLU0qFYFy B8sgkI4opqk4QmYlBZCpKx E0RCQqjiL3Sim7KMLlYXkj s2jgk4LzPSNpMPz6vCvcRm IzLMYiw2tgvnUxUrTlNVTk LIFoWZNgtGQjR087i4hdg6 zoudXlbAV2WAZbTJO1NAnx iaPtoaF8QXqewXViIkG4LB tccmVkMFxncmVlbjBcYmx1 ANUdO626NPO9tXxpd9zrBS N9ANMyIPZhDsGcDb6ldEKh O181HTNeIMYNFBMirTk8HY KzeyJicyAiiFNAz750B286 l7yiLOWqktKkgJzWezevi5 njV216INUxbYGhzfIaRuZl GCZnsQGodOG0LIIxLQ8bcw vlPZxqSHycLVGijjQ0UREx kPOdO8RsBSWbWK4kdxizMC T7SUbrFBDqUKR9PiTsUQCf x4Jvkgy0HmJbrq9fua21VB D9t4HmmVlgMYN1MWX9CaZw Fx5viKLkCTThLX5oGtGnjW XiITZdkl36jFlhNKgtUVH7 HXHvqbRwt9Xgh5ipRdDzfe GjI6ogT5ZaQFGqJSXwFYUa WmEpzdWdk7Yja7RatKLvqC c1s8xoULUoPEQqgOkhr6dg MGS5VNQmgYKkE4oasR2eDQ NwBY4mdogvz1qsQDfrEWxv JUWuoAW4gvU5IXJzyLVdL8 ShrL2vUUMwJSlbODGthng5 OeOmPg6snOWkmZhsOBgmPy twYWdlXHBnbmNvbnRccGdu ZGVjXHBsYWluXHBsYWluXG YwXGZzMjRccWxcbGFuZzEw MzNcaGljaFxmMVxkYmNoXG KfTDkgZ2cnVhOpQfHvVqv9 OVXnvHPoSAAuMqz7GVYptZ SdBDYRrWgpxD3gMTXkeTgr gU8yqJE7GFPkaySxcGIAjI 0iDTASbZ2rQxT0GxEjVqD5 JQT9ARYrnGLkcE8= COMMENT (test code = d2tngAMnKTRluWJ2UtIcHA 7051) Rvr8nub7IulAHzjNRbAOlo uWLpdsYmhk42oOC2gH59YO 1pHYRqEdR4WRJpbnS2Zws8 QUPpALZmwGZpX752y4wrm5 nxmpKqtCF5xIqcEZKwOYUp HStjMNClHsFgZEdjtO9da8 csA1ZsDHAeU2Yeh69mFXJm uS1eo8VkXTZsTUZlD44lOJ SmOHNocAUgDcbcySY7AP8g IUZlh9G3FOKusiDptJEiBJ NkuJFvZPA6cZMqdZlobwSe ia57fXKfuMRyz0AiMUZvQX T1fT5nwqVzJGyutxObJYQy YULaT8toAUUoO5SxmNSks4 WszQ9wf9l3GmTBmS75hm1p hGP5h5HfQW0hD2LiCWX3sJ MyRGTycDAsOu2qsNCsPL9o KIIfp3LlGKIaZDKfgC8tn6 QsJEGjLWYtODQ9oD3otvVl QCjoiwZ8lhDcYSVpd6NmtA l3WWDsx9IiZHFWMBLewfBk FO0BH5TzGQTrzCCiaKgqvE Yvm6h1iZS3nZYoxyHuq7D4 WPUpZ2urkarvGXmfyMayjX 6ryLTlRoYbEL1qlMGdOVfy OYPqezGqti6sMN0bKQDzaf 0= CPT Code(s) (test code h6bkjJFtPXTqzFH5IxFgWU = 3357) Tml5pda2CzvVMbmRCbYTgg aQRekgUmgs73bBZ8wR44BL 2vQMMmGsS1ZUByvwV0Bim9 SVDmSJKlaDCwU925v4vfb6 mhfhRdwZQ8aNpoMKRkPNVk YWluXGZzMjAgODgzMDUsID v1GlKlQZE4UIJ4ECvyVJY9 CLINICAL HISTORY (test q7rfsLGrXVGwbRDwEzJkPW code = 3356) UeXQXfi9dfNZRywZLbKcSa MzNcZnRuYmpcdWMxXGRlZm Tes5veg894bGWba9tnXYUc XkB5sQSzEWZnmNImY215k3 mpj9ikekYpmQV2JVHfSDJ1 RYofeqExmsS4RQjpsWIrVi S7IPexekLgNEjvifPykpPl Xpt6QXKuF240KPX4rAhvm5 rpRLL9JAZtMYIeWpPbVg8x yDMhG873HJShOSUOBXWgtV l1RSVkhiAkllMwcAQOe937 P725p0foBMKzhvSunXgIor bsv2jcQ830KAAqjKSqwfSr EsMhLSFalCHzdBD9AHPfCN 9nliyfDrUyKP6uxkbsPkNu VP0dxpy1AiRhCG7egaoyNq ScJNikVCLxzatpPYVgt7Dx rrsrMT3gG3Vbj5P6kH1joN PdIPDxiEBtEwOpYLZkvf0e sIBjMOrma1OtFKO1yiH8xS AivNFaQPYlQF35Sussy7At IfbdFZA8CCJujyRvs3Tgt7 sxDzFiytOdF6jqP0TqXXMv HMAoTXNrGeZgojSba0Qsl1 KxlNLoqQb0k9bcFAGfATSb oTofz6caOQV1DKUvM5D0bN Kyp8trCIvsQIPcgXZ5jdfw AKvkWGMboyQ2yvorQCrnCO UaeRW0nzewSKgsCPGkHkT7 rrruLCxtJGUvJXK9LJtzl4 03CHI4WQlqEbhmPUkcSVQd bmNvbnRccGduZGVjXHBsYW luXHBsYWluXGYwXGZzMjRc eZigkXxxpR4tFtPmYuDlXL joAH4sFUMrJ1jpuDCoFTPg RKKrG7geShSrfM2jjDupSM lrzgMtXTKmVNHcZUdiRQ2r LZNorXrnhpEnhQltbI0pdJ 5ccGFyfQ== SPECIMEN SOURCE (test c9hczYNkSOPhbJN9DoLiCW code = 3377) Sov3nip8UsiTRmcRZqZYwl aHJsbzBeso37tMO8gW56TA 4aXYAjXeM2CJYlfwU5Wli9 LCKtCXBpoQGvB634w1xky8 vuzzUjnCX8sBssMBZmUPDr YWluXGZzMjAgUGVyaXRvbm VhbCBtYXNzXHBhcn0= GROSS DESCRIPTION (test a3jotDExVVXlvKEhCuMaGB code = 3366) DzXIHwd7qiEVVjvQYgNoAx MzNcZnRuYmpcdWMxXGRlZm Hpx1moc646mJZtt2tmDROy KlD0qPEySLTsaWEwQ194s7 mdp6yoxjJrnRQ7DVSwVEO7 KXmkisTsdkY0SZoyxCEkWo Q4XWkhxiKpGFfvlgKvzjIy Zat2MGXjP597UPT3tPhqk1 eaICZ9FCSyJXUzZyYxUb8b rTBkM059LYPdMDRCMJJgjQ m3GWDtjeIvczNbxUXOr006 V332l9jiTEAthbAveAnRti ope8sbL878BHBaiENvzyIp WwXxTLKpkQKuyOR5VEGxZV 5hnfgdLxDxCR4pozwkYsOd JA8cjns4PqFbHP6zhkfjOb WuLEynOQJgjifmOQRty4De xuveBV9uQ8Tsq2Z6rC4cfI OeYQNxfOXcMkNqRBNnwo7g iZSgKVlrn1VdWPL4fhO9aB PuoGMzEYWcMI75Tiqdl5Hj XihjEFQ0TSZqvuWgv2Hef3 whHsBxzvZpN1pzA7LmOGEk WTDkDDBzRfNpveCvq8Dcn8 SorWZcfXl6c4lkDJBcHVGp xGprw1koFFP5ZOHfN0T6bX Xpg7lxWWggSUEkkAB6pfci UDvaKIIqxnF7ajyyFVauBO IvyTS4vxtfCDqvHSJyKrG2 oijfOEboFDWeGGX1HCzie1 31FMV1HTivQqygUFgePAYe bmNvbnRccGduZGVjXHBsYW luXHBsYWluXGYwXGZzMjRc bHRycGFyXHFsXHBsYWluXG YwXGZzMjBcbGFuZzEwMzNc aGljaFxmMFxkYmNoXGYwXG ttA6kqGiOaToVhCBHPIMKa wGDkTFLwwyNkk2EmPBpcgn BsYWJlbGVkIHdpdGggdGhl DASdjLqvggKimyNbTZ3yLU GlBOYyY0AyEFBkZ82iJZOd pR7lQUZfVM7jTGIwKoPseM dqQPidHJGhVYV5i52aaGsb B2PbET4aWBGekh51lJm8GT Kcu5E1AEJmk8G2VJV9vBA1 TM7jZRY2bcVmPM09CAwzVX 76VJbbQS6kNLFkDIdkQGUf N6WyI4U8UP6cCBhyWGQgAO FmmSOzZUpsKOC2Nv9xeLVv VHTkgyS5z2FsVEVwmNxbj5 ytObTfhKq2lkN4jP1lEKla AKFwy0YmxKDsMMNfBjDUUY IvZXcgXHBhcn0= MICROSCOPIC DESCRIPTION c0xiaRCnKVJelVT9RmFvPN (test code = 3371) Ecv1asu2VugDOzdEGuAHxx zGOcnfYsff27jZO8hV63JC 8eZMNnHjP4YTYdkgE6Zil3 LXIwNMVeuLRaX744e4igd0 uoczCzuBG6fJmcLKVzRSPb IHvlVCGfAjOkAPRaNy9ycK VkLiBccGFyfQ== SPECIAL STUDIES (test h3glhYNkFHRjwXO4RuKaQM code = 3376) Mwg6qcg7VmmWQogEGeJFlv nKIwyiPcev72lDV2dN57EC 9wDNRlAmY3YUUnekO2Trq9 FRCqGXQwzMYfO734ATOsNI UojVdquly0uR97ZZBsvI8s nEBtPFv6JNIkgxSboInhdK 6mNeYxOtUaMgSPsCGylM38 JCTedrL4YTUap23tt6BauD xxkyPcYKTrTNeyM7l1NHVw OSDlFZE6n6Sbd3DmwB5wfB 1hlOudtG7crLSszDN6yulx f7Jnq7HxN2wohRQrnNEzje PnGDYhcsUKXO1UWrOHUJ2g ZGNNACoxTW9AO0GmqVNjBR AyyvDwh6xoU1saEKXcVUO5 QG8kmeBwFtZnFC8rjB47a8 Pkj11gz80frK6hnLWipwOa B08wsBXnxWRhv7PtRPZyxd DolUW6FIQjYZpliqdwz5v0 tCO6uJDauNZhkTQ1cSAcfI CgFMVMmJVzGSOwr070ud1u KRIkwHIsjbRvtA8jESdhhk hhwAVeVK5sQGWaSOKhPYEk FN34vkVhSP4yxBWqz8aalc AhgJMjk6YinQK7BVMyfYKy syosBv2bBS51HAAlJYllqR 5rhXXaklWeYH4cNG3bK5K0 vPXtWYUwijHfo9vxMAvqNU 4gYXZhaWxhYmxlIGFyZSBl mrPcwRQ8BRTfcXMdBOQvqH XkIHiniVXec3yva5VhL5qu qFgnfFH4ANVtS3jtgLJjbM O8SEQ2vS5jQVgepyZyQYNr p0QwWJZkFAYzNxY0bP6kUZ R9AiZQxIgjLCJ4VzS5HYkv BMGeMQ1nJUsdKBplG7LwkX MiBKHOYZDzn2zqM7xfUYNt u6TakL3upRF6cRXhPLYamN U7KHPlOFB8HXlqqXHmDQTv BQDgjLKzdTHoSk0vfHFuT5 GmD6ydihAolTQqiQH4nVWu DTpwfzWpZNT7TDSkmF3kEU 4lUQReoJLxRH9inSBgSITq DVYoPRUvLAJbm6EgXUTfzo 63LBRvQjpysRpcFFTkXd9l Na8oAVQjgzSdENF7BkUOFE 6jrhciuSWleOpwto1nSEmf TBEHCLEsAPJmWIM3BNYicA 9hOTW3oUD4KJU0P9zdK6qz OQQsgcDmEG6lEUDlgJRquv HnGFotQH5dcGKfVVJdz8Gv ldpbMLOdFUS2TAX3KHqgSV DaZKRdRw5aBZMdrU4yQ1Dz BXN2isTuq4YmNlKLuYRrmV 64bFPqmu99NMIhENQzW8Sj ZGVkIGFzIGludmVzdGlnYX Qgl93wrJKsxcRlk3RaroWl YQQnC9luNGNujPVwcYWla8 FspH9jtBEfkgRjLPB0bEEd IIBkjX3dDHNhjCjvNNHtpS 7yL9OjRLlcWs6hMUTxzdiw GP7bhw41BU6ouwCvAQ8zwx ZmJT89zmTvEqFwHMk8UIjA QNiPUWa4BXJlusVklUGifS RjYBSsoO8jhHQuWd8kcSZa aWdoIGNvbXBsZXhpdHkgY2 graozkPNxzaWIbw8AqgP2q oYW3VFX6bW0lTdycJMS4 [facility] ([facility], = 4348) Department of Pathology, [address] [place] [address], [place] [address], Technical component was [facility] performed at (test code [facility], = 2778) Department of Pathology, [address] [place] [id number], Professional component [facility] was performed at ([facility], code = 2779) Department of Pathology, [address] [place] [id number], [facility] [id number] 05:43:00 Test Item Value Reference Range Interpretation Comments Case Report (test code Surgical Pathology = 104) Report Case: [id number] Authorizing Provider: Melinda Redding MD Collected: 05/10/2020 11:54 AM Ordering Location: [address] Received: 05/10/2020 12:35 PM Service Pathologist: Ruiz Retana MD Specimen: Abdominal, peritoneal mass biopsy DIAGNOSIS (test code = [id number]) FuZzEwMzNcZnRuYmpcdWMx IHtccnRmMVxlcGljOTIwMF mcdkLdDFIjiWOoJ4Krmhoz OOsvNK8jML9qrJkcrMRaiP CvLOMqUpIfw5ozr042eXVw b1qvFFIBitozyIn9nBilH5 5oh2Q2JzbrE79sgJVrIIkb bGFpblxmczIwIFBBUlQgQS RFWUILEL7CGAXQVM2YE6No NXIXS2ADAHavpGGyAEOXWu SVXULIFIdcE5TAS5hHW45U AfhiWHSlK3EUXSTUXLpEM4 JEZNCkA68JQTJVDD1pkNCv mBddluCuVKdsn2FwGTcfNW RsEB6caXqvLZDaUN4lGHCd Y4wzeX9sxtc5EaQgDVGkWv U4EEKazbW9Mkl5RWWdIYjd k3aed1HoRZTtAWo9eFaaKd JdHUQgv9ukpiTzBuLxYICu NNCzDZCoxWHzB346t3bze5 vogkXohGY5BQNoDJR8HFbd tnIksxD4HLtsfWLvWxU4GI tccmVkMFxncmVlbjBcYmx1 AGShM097BOY3lAyav8hmRC R3PPQwSLZrRyAbWd1abDGn V989FQYdJOOHTXSeaXn3AL LyzxAwwpVzcCTVr629C986 r5zyQHGqdoLlgDfDshfnu0 gjI246RLWqhKOctzVeXhTt BEFdgRQtgGU4QIOwOP9mmb ftXAxvSFfeTJOceoZ0LHJf yEZaO9SvSGYxDE2jihokZA B8YFvrZHNhRWC9FmPpLELs h7Ljhjp5LnCweg6kob17LE L7f9IekQidDNL2MLQ8LkRw Ws2bkTQaZZTsKW9bKkFcrS QnMLMbxy73hEhfPGweTJC7 NNXqipEae4Oax7cxRtWxlx CvW4aiL3WyBHPvXXLdCHHf NcDhpxAgp9Otn9PvlENfbO u4q2ddXFTeCVMfpWovi5we BRH0XRXxjXPrT0udtI3rOF KjTL7npdeee2dwUObzNNzi IHWhrTE7msX7IWVugIYmL9 TveG3gCVBxMYboANTpgqc0 HnYjNw8ueHBwyMlrXHfhLe twYWdlXHBnbmNvbnRccGdu ZGVjXHBsYWluXHBsYWluXG YwXGZzMjRccWxcbGFuZzEw MzNcaGljaFxmMVxkYmNoXG AbTCdyZ3qdKdMhQaCgNbb9 BOGkoHXzOAScJgn8ODTqsS TaLNIHmDxrtS1jPZUkpYps zB9qeUS4NPFuteQwlNCJtO 7oTAZBiB7kUtN6MoOnPlX1 MLK7TQNviBAxhK5= COMMENT (test code = a9csnMBvERGvvJU1WtGfDY 3354) Mqj1tog2RnnAUueEJrERhf yDAqffBfvi88cNC2wP18RZ 3xBOKaBmD5VSSpmeK8Swe6 NVIwIHJiuVYlY608w3gqt4 vcjoHntMV9hHvsFYPbWLMg YEbmVXEoRgOnUYdngP4za3 mpM7YnQANgR3Xls99zPPQk jT4ot4FuKDYiIMRkK00lSH DuWBQtkETnZqwosYR3QW6r UJTwu3O9WOLthuShvWNkEP LkiWTkAJD8yFHquYpbhzPr ez09xYCusOVrw2ZrNSKjGE Q4pX3rcfIjOPpwtgCyQUVv IORoR3ooGCSsA1VulCItg9 FqrF0pw1u5VnCHxB36xk9r eBJ7j2YoTM6sD7YhDNV6pD KxNABoeWGeJk8uvZXxEK4n AYMkz6TkPKKzNLUvfZ5qh2 XkXHNtEMDsFNT8fG5dnxCc KBmjpuZ1mqXzPDDhn3TrtE w1UGWyq0KfWFPMAVEvylSx NA6KC7CrFGHaoYRhxJrrlO Lrh4x1tYU3tLQqheUha7D1 UWXrK3wihrurKNtemZqusM 4aoFVtHpOcZG8ekHHsKWmh KSOpdlYwdn0mOZ5zOUPane 0= CPT Code(s) (test code k7dlqEEsANItkDM4NgKrOJ = 2361) Vco8mxf5GypETiwIOvCSyr cREvxzMcvo41qID6vP07VK 8yVGSoOpA3QPZndjL1Mqn1 LARlYVPzgKAkD597r9bdz0 qhdvCtxNR7eHmlRIPkAVIi YWluXGZzMjAgODgzMDUsID c2MwMxOFB3ZFQ2DLzgUCF2 CLINICAL HISTORY (test l5pewAEvCZLymPXjUoXsUP code = 3356) QaUNSsx7hsKMNnqTOeVyMp MzNcZnRuYmpcdWMxXGRlZm Rsm7dyz802sRDgn6exATSp VgI5dGPhGEHgxMUyN470b0 ozy4stomMiyJG2ESJeGZX1 FZexdfCczzQ6HKlpgZJwTq U5JHspctEhXJklmsFbbcLd Mgp4MFViZ661CAQ8cLljk7 ucSTE4HPTbYHGaCwUfVz3q sLBaJ956NEHxRGKDCRVdlX g2LISgmkMrwiMlpFVOd211 I846f0zoYNWgexSkpHbOji aoe1pnH375SRUjbWCiitSq PhBgMXDpmMFnnBT9JSBpBI 7dhofsZrVyDI2tqubcClZr UN5itvh0UpWnZA8nnhuxCf SzEEnfNLKxmqliGBTpq9Vy lquxZR8eO8Aip2M9zP9emG BjVNHunUVoImOuOUUvzx5n xTLyAQgpl9LpZPB2lyJ3vU FdtZIsUTYoPK68Wrqyh9Qc GfmdSJA3CPKsafFpd1Xkz7 eeXkQktyUgA2liU6PwSYUw FFGbGZWzUrVghmNhk5Ath1 IhsTFjqZj9s2aeLWNwDLVa aJlcq6dzPIJ1PRGfY6R0iK Laa8kcUQcvBTJavHI4hiur NHoqVULwfuS9houbLNtmQQ JnaLF5lugbUSwvWYSkCgZ5 ilxjVRnuJULuBUJ9QPjeb2 20SSS1DGdsBjtrHDqiALTc bmNvbnRccGduZGVjXHBsYW luXHBsYWluXGYwXGZzMjRc bZruiBbmeA3vTaHdYcZjUD ldDK8qCVDjD9yjaPRmZRSk GZTcP8feOmYwqW6khIetJK ktvqBxUSWdWPYjSCogYQ3f DXLazPkfeeCciAzwlQ7ckB 5ccGFyfQ== SPECIMEN SOURCE (test h1esgQOfCPWtyHB7LrScZU code = 3377) Kic1lcr6RksEQozNXmZEzg tKLseaYjtq12aKH0wK22RI 8tGUDvYvR3ZXGsdiG4Yan9 YBBhCSNegOMtR948d5fdq4 fwodAdhFB1iYmyASRsPUTt YWluXGZzMjAgUGVyaXRvbm VhbCBtYXNzXHBhcn0= GROSS DESCRIPTION (test l4qukFSeOIQrnHEfIlXlSU code = 3366) FjJZBxp1ynAYCitJYpLiGf MzNcZnRuYmpcdWMxXGRlZm Dvb8slz546kDKjr7eiFOUz JbF7aLIaDZKdoITiZ448n4 tym9lygaFhnRL1WZOeBXP3 NSmsixVnfwI6UGsplAPxAd V3QKxdptLuRCgbudAysvMr Dtf8UCPpD651PID1rLysj3 sdSWQ7WEMaOKXgWiKbYp8n uOBbE521EVPbCFAWLLZbyX v4FPYamuOvkaJvyAIRo300 J757d0gqXVLbuyHbzQwCql eeq1ejG022KLLdlZYgymWq TmXfKYSdzJHuqOP1XWDqYO 1aadugCyJoFH9ysedwMbNn TN6vsro4IiAmHN3pnbbcWt VnOQnaPQItrmmdRWCaw5Jj precUP2gJ6Mmi7J5uV2teN AhHOFkvSCjXjOeHWVcpp8s aPNjRXjae0ZmBAN5kmF5zL WnmPAiRODfGD77Waeay8Om JqlcOLB6DBUlzqUsu9Xbi7 tiPoKvwrFpQ7jkH3QxUHSn YBXrOPYsOeAkqlRqn6Rbo3 QriDSdiKx1t5qrVJSzNBCu lFndg4wxACQ0SCMjI6Z1xQ Fbv5tfDVtfUBGkuGB0sbht QGuwZLHbopW7oburBQraVO SpnNE8xvnsIItjBAPpPiY3 xqqaDKoyMEFaPSJ7GVmfg3 44FZB7KWhgXwqfTPorPEBn bmNvbnRccGduZGVjXHBsYW luXHBsYWluXGYwXGZzMjRc bHRycGFyXHFsXHBsYWluXG YwXGZzMjBcbGFuZzEwMzNc aGljaFxmMFxkYmNoXGYwXG ymF8acXjZlShJkLTFEJYPy uZVdPRDjswHwr8VqJUncuf BsYWJlbGVkIHdpdGggdGhl VWQrjKvzxdPcgiBiVK4xHX EvSDYlR3TpLJPgQ08nEWQt wF6uXKZaVU7dVCJcXuKwvT ieFUjnIVHoDEO1f10soQus Y4BjLD0vNLHrno28wSv0WR Lca0U0NNXcf1P8OUK8hAU1 CO4mBSC4oyOvDV29AShoNX 61QWrbKT5eJIBdSJcwBOPy E9VpX9Q5YS3iUFkjOWAmFG PjmMGeUHuwGHH8Zs8snQAg EIYajeN5u9RwEVImbBvjn4 wdPmGwbOl4qgU9aS5fIQna WSQzl2VzcPApLQRcVbDZAY IvZXcgXHBhcn0= MICROSCOPIC DESCRIPTION a3qhaRTcNDCkkCV3IzMbTW (test code = 3371) Oeh8cbt5WjnSDdfDGcBHuc zNCgvhUksm26qAQ0wM44UU 2tPQVyDsX8YKEwdbM6Sgp9 BVSoWNLcfZCxV213a6hny0 qiwuTopYX0jVoeYGAfKMSj LPewIANlXrUrCFDpOm5nnN VkLiBccGFyfQ== SPECIAL STUDIES (test y4pmaYSkGOSotND9BwRvHU code = 3376) Ynb5rlv9DeeHQetONuRFac eZGljqIgjo44uRP4pM34ZE 8xKMGwSnO2ZVDbeeC7Dhd4 TMSqZQWqiFYzV183KKJzOQ CcvLsljvp1jP87YZAnsU5f uJVgFQz0RFPoiyIzkCaneI 4tDuBaPuSdAjWGqGKwfB68 UVBrugR1DABxl88tq9PbgW ullxRhWBKxIZucJ4v1PFCo FGTgVOI1j7Bqc6RksJ7qpK 5ooFygtF6kzMGhuAM0tfiw k1Jnk9PxS7jtuFJhqJIcaj QdCKRcgwFYZF0ACiSDVY1m IITNVOejWP9IP8WgeZXtFE ImnqWbp5qiO0ybLKUyWAT0 WK6iwwTwLzKaIQ1sqC48w0 Unb21eb94dmH5ckEGkglOj M80krDVpxMIeq4XuEWAciy ZzfHV2FZHcTYambjndx7r8 eTS3sJLwoGTwqMS2uLTtqY BvXOVWoBHtMMRno347no8g RNYirRFhzdRfrB0nJYbizo hfsCNyRW6hDCFzXXNnLDQw PH63jgFsMR0nkCZkc7qmpr CvaXHou7DwbMU0PVFisIEr bhipHe6vAT84GTItROeqsX 3afUMnjwTkEP5vMG6mK4Q4 rTHvDPYvhfGyh7fcJAhqCL 4gYXZhaWxhYmxlIGFyZSBl wkFknBO8DQHpkAXmTDJscB YqUMeaxYHgw3lpz4GnJ8lp cQvkrPH6KLGiQ1kfhVBtyW C3KVD7hJ9bZYemrxGsVLLl h2IxFUYzCLMxZpW6zJ6eSP O2WeNWpSkiYRY9BaI1YEgk JWJcZF3wFTkfIJxkK6RqjJ DdOVYAIGYlp6srF8uuOCZl v9ZftP7djOW5iPGxERKxtS Y0ZRYaQCE7PDrbiLCtGSUi GUPkySYrhKZfUx1cqYKlN5 NgI9cfjlIicKPqwVY9bYZp GMekugNaHDP8IGRawS5yCB 2zRCYiwJAeDP4puJCtJGRk IUXmQEUnBZZzz8VxGXIttt 71YZQuDvwylFeuJKBbLf2i Bm4jMBMxzsPoKHQ7MuOJWH 8nwvkupFJkiOgtjy8jJGpf AMZRYCCpBBPxDSC1FZYbsZ 8lHYB3nUR2KAJ5P8faA0gc MSJtbrNwHM8qCFXxyDNnen IuNMfbWX6abDSuYJClj9Va qweoTNFrWKP3GCX2OZooMO MlIHSbTw6qEXFyxU9aJ1Qs FUL9ntXan3RyQqLYoTNnjP 40xBEjks74RLWyFJSfA2Hu ZGVkIGFzIGludmVzdGlnYX Kai16aoSFuneHia1JshnRw AWNhM9ybXTXakYJzlOXvn6 BjcJ7smHXsksRjBQP7dCQh YSShaP6qFMIiwFpzDNWogX 8lI7RdWExxGn3kNANecaza GM3kko89SE6flvBoGM0ouz PlAH02hpOsRjTaEUi3NXeD JEkRRTs5ZOLlycKjpYMzeG MwXGZhoK6wePCcPj6zdWHb aWdoIGNvbXBsZXhpdHkgY2 aeoahlISkbnJTpp1XweX6l rLQ2NCU6pM8tTgxeZGM2 Gross assessment was [facility] performed at ([facility], = 2777) Department of Pathology, [address] [place], [place] [id number], Technical component was [facility] performed at ([facility], = 9681) Department of Pathology, [address] [place] [address], Professional component [facility] was performed at ([facility], code = 2779) Department of Pathology, [address] [place], [place] [address], [facility] Park[facility] [id number] 05:43:00Surgical Pathology Report Case: [id number] Authorizing Provider: Melinda Redding MD Collected: 05/10/2020 11:54 AM Ordering Location: [address] Received: 05/10/2020 12:35 PM Service Pathologist: Ruiz Retana MD Specimen: Abdominal, peritoneal mass biopsy PART A PERITONEAL MASS, BIOSPY:RENAL CELL CARCINOMA.SEE DIAGNOSTIC COMMENT. Signing Pathologist Direct Phone Line: [phone] Histological sections demonstrate a core needle biopsy of tissue involved by partially necrotic tumor. The tumor cells have a clear cell morphology. Immunohistochemical studies performed on block A1 demonstrate the tumor cells to be positive for PAX8 and AMACR, compatible with the reported clinical history of renal cell carcinoma. 56762, 83921, 67196Hfmvn is no patient history.Peritoneal massReceived in formalin labeledwith the patient's name, medical record number and "abdominal" are two pieces of anthony-white soft tissue that measure 0.6 x 0.4 x 0.2 cm in aggregate. The specimen is submitted in toto following filtration in cassette A1. DLR/ew Performed. The interpretation of this case included the use of immunohistochemistry or special stains.BLOCK A1- PAX8, AMACRControl Slides Examined: In-house known positive controls were evaluated along with the test tissue. These control slides run alongside of the patients sample show appropriate staining. Internal positive and negative controls when available are evaluated Immunohistochemistry technical testing was performed at [facility], Pathology Laboratory where it was developed and its performance characteristics were determined. It has not beencleared or approved by the U.S. Food and Drug Administration. The FDA has determined that such clearance or approval is not necessary. The test is used for clinical purposes. It should not be regarded as investigational or for research. This laboratory is certified under the Clinical Laboratory Improvement Amendments of 1988 (CLIA-88) as qualified to perform high complexity clinical laboratory testing.[facility], Department of Pathology, [address] [place] [address], [facility], [facility] of [facility]ology, [address] [place] [address], [facility], Department of Pathology, [address] [place] [address], DN, BIOPSY, [id number] 18:04:00Reason for exam:- >peritoneal mass biopsy, h/o RCCFINAL REPORT CT-guided core biopsy dated 05/10/2020 Name of practitioner performing procedure:Laura Hannah M.D. Names of bilingual sales assistant:None Procedure: CT-guided biopsy of omental mass [...] Hannah Verified Date/Time: 05/10/2020 18:04:09 Reading Location: [address] Body Reading Room CT biopsy [id number] 18:04:00Interface, External Ris In - 05/10/2020 6:[address]-guided core biopsy dated 05/10/2020 Name of practitioner performing procedure:Laura Hannah M.D. Names of bilingual sales assistant:None Procedure: CT-guided biopsy of omental mass Preprocedure diagnosis:History of renal cell carcinoma with masses in the abdomen Postprocedure diagnosis:Omental mass Specimens removed:Omental mass Mesha mated blood loss:None Complication:None Conscious sedation: 1 mg Versed and [address] Gómez was responsible for the moderate sedation. Total sedation time: 30 minutes Anesthesia: 1% Xylocaine local anesthesia. Graft/Implants:None Technique: This exam was performed according to our [facility] ental dose-optimization program, which includes automated exposure control, adjustment of the mA and/or kV according to patient size and/or use of interactive reconstruction technique. After obtaining informed consent, CT- guided core biopsy of the omental mass in the right lower quadrant abdomen was performed under usual sterile technique. After placing a 17-gauge coaxial needle adjacent to the mass,core biopsy was performed with an 18-gauge core needle with 3 passes. Patient tolerated the procedure well. Impression: Successful CT-guided core biopsy of the right lower quadrant abdominal omental mass. Signed: Laura Hannah Verified Date/Time: 05/10/2020 18:04:09 Reading Location: [address] [facility] [id number] 18:04:00Interface, External Ris In - 05/10/2020 6:[address]-guided core biopsy dated 05/10/2020 Name of practitioner performing procedure:Laura Hannah M.D. Names of bilingual sales assistant:None Procedure: CT- guided biopsy of omental mass Preprocedure diagnosis:History of renal cell carcinoma with masses in the abdomen Postprocedure diagnosis:Omental mass Specimens removed:Omental mass Estimated blood loss:None Complication:None Conscious sedation: 1 mg Versed and [address] Gómez was responsible for the moderate sedation. Total sedation time: 30 minutes Anesthesia: 1% Xyloca ine local anesthesia. Graft/Implants:None Technique: This exam was performed according to our departmental dose-optimization program, which includes automated exposure control, adjustment of the mA and/or kV according to patient size and/or use of interactive reconstruction technique. After obtaining i nformed consent, CT-guided core biopsy of the omental mass in the right lower quadrant abdomen was performed under usual sterile technique. After placing a 17-gauge coaxial needle adjacent to the mass,core biopsy was performed with an 18-gauge core needle with 3 passes. Patient tolerated the procedure well. Impression: Successful CT-guided core biopsy of the right lower quadrant abdominal omental mass. Signed: Laura Hannaheport Verified Date/Time: 05/10/2020 18:04:09 Reading Location: [address] Body [facility] [id number] 18:04:00Interface, External Ris In - 05/10/2020 6:[address]-guided core biopsy dated 05/10/2020 Name of practitioner performing procedure:Laura Hannah M.D. Names of bilingual sales assistant:None Procedure: CT-guided biopsy of omental mass Preprocedure diagnosis:History of renal cell carcinoma with masses in the abdomen Postprocedure diagnosis:Omental mass Specimens removed:Omental mass Estimated blood loss:None Complication:None Conscious sedation: 1 mg Versed and [address] Gómez was responsible for the moderate sedation. Total sedation time: 30 minutes Anesthesia: 1% Xylocaine local anesthesia. Graft/Implants:None Technique: This exam was performed according to our departmental dose- optimization program, which includes automated exposure control, adjustment of the mA and/or kV according to patient size and/or use of interactive reconstruction technique. After obtaining informed consent, CT-guided core biopsy of the omental mass in the right lower quadrant abdomen was performed under usual sterile technique. After placing a 17-gauge coaxial needle adjacent to the mass,core biopsy was performed with an 18-gauge core needle with 3 passes. Patient tolerated the procedure well. Impression: Successful CT-guided core biopsy of the right lower quadrant abdominal omental mass. Signed: Laura Hannaheport Verified Date/Time: 05/10/2020 18:04:09 Reading Location: [facility] C013Y CT Body [facility]2020-05-10 08:23:00 Test Item Value Reference Range Interpretation Comments SARS-COV2/RT-PCR Negative Not Detected, (test code = Negative, See 04672-7) external report for linked test SARS-COV-2 [facility] PERFORMING [facility] (test code = 71504-1) MATT (test code = Negative result for [...] of the Act. Fact Sheet for Healthcare Providers:https://www.[employer]/sites/default/f alber/product/documents/F act_Sheet_HC_Providers_L dem_VOMN-PhS-7.pdf Fact Sheet for Healthcare Patients:https://www.[employer]/sites/default/fi les/product/documents/Fa ct_Sheet_Patients_Lyra_S ARS-CoV-2.pdf Performing Laboratory:[facility] [place] [address] [facility]omatic [facility]2020-05-10 08:23:00 Test Item Value Reference Range Interpretation Comments SARS-COV2/RT-PCR Negative Not Detected, (test code = Negative, See 67691-4) external report for linked test SARS-COV-2 [facility] PERFORM[facility] (test code = 23107-7) MATT (test code = Negative result for [...] of the Act. Fact Sheet for Healthcare Providers:https://www.[employer]/sites/default/f alber/product/documents/F act_Sheet_HC_Providers_L saw_IROW-WaS-1.pdf Fact Sheet for Healthcare Patients:https://www.[employer]/sites/default/fi les/product/documents/Fa ct_Sheet_Patients_Lyra_S ARS-CoV-2.pdf Performing Laboratory:[facility] [place] [address] [facility] (Asymptomatic ONLY)2020-05-10 08:23:00 Test Item Value Reference Range Interpretation Comments SARS-COV2/RT-PCR Negative Not Detected, (test code = Negative, See 26086-4) external report for linked test SARS-COV-2 [facility] PERFORM[facility] (test code = 84841-9) MATT (test code = Negative result for [...] of the Act. Fact Sheet for Healthcare Providers:https://www.[employer]/sites/default/f alber/product/documents/F act_Sheet_HC_Providers_L iyh_UIPS-OjF-2.pdf Fact Sheet for Healthcare Patients:https://www.[employer]/sites/default/fi les/product/documents/Fa ct_Sheet_Patients_Lyra_S ARS-CoV-2.pdf Performing Laboratory:[facility], [place] [address] [place], [place] [address]ARS-COV2/RT-PCR ([facility])2020-05-10 08:23:00 Test Item Value Reference Range Interpretation Comments SARS-COV2/RT-PCR (test Negative Not Detected, Negative, code = 4349904) See external report for linked test SARS-COV-[address] [facility] (test code = 1765885) Negative result for this test determines that [...] individuals suspected of COVID-19 by their healthcare provider.This test [...] justifying the authorization of the emergency use ofin vitro diagnostic tests for detection and/or diagnosis of COVID-19 is terminated under Section 564(b)(2) of the Act or the EUA is revoked under Section 564(g) of the Act.Fact Sheet for Healthcare Prov iders:https://www.[employer]/sites/default/files/product/documents/Fact_Sheet_HC _Jghxhvynf_Vjtr_DEMS-YhP-1.pdfFact Sheet for Healthcare Patients:https://www.[employer]/sites/default/files/product/docume nts/Kmki_Grwyq_Kglnnczz_Rioa_ULZZ-ImM-7.pdfPerforming Laboratory:[facility], [place] [address]Aikuqbbbotk time/INR 2020-05-10 04:37:00 Test Item Value Reference Interpretation Comments Range Protime (test code = 16.0 See_Comment H [Autom ated 5902-2) message] The system which generated this result transmitted reference range : 11.9 - 14.2 seconds. The reference range was not used to interpret this result as normal/abnormal . INR (test code = 1.32 See_Comment [Automated Online Dealer1-6) message] The system which generated this result [...] valves. Lab Interpretation Abnormal (test code = 51148-9) [facility]th[facility] time/[id number] 04:37:00 Test Item Value Reference Interpretation Comments Range Protime (test code = 16.0 See_Comment H [Autom ated 5902-2) message] The system which generated this result transmitted reference range : 11.9 - 14.2 seconds. The reference range was not used to interpret this result as normal/abnormal . INR (test code = 1.32 See_Comment [Automated Online Dealer1-6) message] The system which generated this result [...] valves. Lab Interpretation Abnormal (test code = 56041-4) [facility] ParkProth[facility]bin time/[id number] 04:37:00 Test Item Value Reference Interpretation Comments [...] valves. Lab Interpretation Abnormal (test code = 85741-2) [facility] ParkPROTHROMBIN TIME/[id number] 04:37:00 Test Item Value Reference Range Interpretation [...] is 2.5-3.5 for patients wiht mechanical heart valves.CBC (Hemogram only)2020-05-10 04:24:00 Test Item Value Reference Range Interpretation Comments WBC (test code = 6690-2) 4.9 See_Comment [A utomated message] The system [employer] generated this result transmitted ref erence range: 3.5 - 10 .5 K/L. The refe rence range was not u sed to interpret this result as normal/abnor mal. RBC (test code = 789-8) 3.49 See_Comment L [Au tomated message] The system [employer] generated this result transmitted ref erence range: 4.63 - 6 .08 M/L. The refe rence range was not u sed to interpret this result as normal/abnor mal. MCHC (test code = 786-4) 32.2 See_Comment L [A utomated message] The system [employer] generated this result transmitted ref erence range: [...] L [Aut omated message] 777-3) The system [employer] generated this result transmitted ref erence range: 150 - 45 0 K/CU MM. The referen ce range was not u sed to interpret this result as normal/abnor mal. MPV (test code = 10.8 fL 9.4-12.4 63134-2) nRBC (test code = 413) 0 See_Comment [Aut omated message] The system [employer] generated this result transmitted ref erence range: 0 - 0 /1 00 WBC. The refere nce range was not u sed to interpret this result as normal/abnor mal. Lab Interpretation (test Abnormal code = 30166-4) [facility] (Hemogram only)2020-05-10 04:24:00 Test Item Value Reference Range Interpretation Comments WBC (test code = 6690-2) 4.9 See_Comment [A utomated message] The system [employer] generated this result transmitted ref erence range: 3.5 - 10 .5 K/L. The refe rence range was not u sed to interpret this result as normal/abnor mal. RBC (test code = 789-8) 3.49 See_Comment L [Au tomated message] The system [employer] generated this result transmitted ref erence range: 4.63 - 6 .08 M/L. The refe rence range was not u sed to interpret this result as normal/abnor mal. MCHC (test code = 786-4) 32.2 See_Comment L [A utomated message] The system [employer] generated this result transmitted ref erence range: [...] L [Aut omated message] 777-3) The system [employer] generated this result transmitted ref erence range: 150 - 45 0 K/CU MM. The referen ce range was not u sed to interpret this result as normal/abnor mal. MPV (test code = 10.8 fL 9.4-12.4 18977-0) nRBC (test code = 413) 0 See_Comment [Aut omated message] The system [employer] generated this result transmitted ref erence range: 0 - 0 /1 00 WBC. The refere nce range was not u sed to interpret this result as normal/abnor mal. Lab Interpretation (test Abnormal code = 36193-4) [facility]2020-05-10 04:24:00 Test Item Value Reference Range Interpretation Comments WBC (test code = 6690-2) 4.9 See_Comment [A utomated message] The system [employer] generated this result transmitted ref erence range: 3.5 - 10 .5 K/L. The refe rence range was not u sed to interpret this result as normal/abnor mal. RBC (test code = 789-8) 3.49 See_Comment L [Au tomated message] The system [employer] generated this result transmitted ref erence range: 4.63 - 6 .08 M/L. The refe rence range was not u sed to interpret this result as normal/abnor mal. MCHC (test code = 786-4) 32.2 See_Comment L [A utomated message] The system [employer] generated this result transmitted ref erence range: [...] L [Aut omated message] 777-3) The system [employer] generated this result transmitted ref erence range: 150 - 45 0 K/CU MM. The referen ce range was not u sed to interpret this result as normal/abnor mal. MPV (test code = 10.8 fL 9.4-12.4 58200-0) nRBC (test code = 413) 0 See_Comment [Aut omated message] The system [employer] generated this result transmitted ref erence range: 0 - 0 /1 00 WBC. The refere nce range was not u sed to interpret this result as normal/abnor mal. Lab Interpretation (test Abnormal code = 23621-7) [facility] (HEMOGRAM ONLY)2020-05-10 04:24:00 Test Item Value [...] 0-0 (BEAKER) (test code = 413) POC-Glucose [id number] 23:22:00 Test Item Value Reference Range Interpretation Comments POC-Glucose Meter (test 173 mg/dL 70-110 H : TE STED AT [facility] code = 1538) [address] [place] [address], 770 30: Head Sampler/Techni vipin ID = [id number] for GUEVARA, ADEEL TTE Lab Interpretation (test Abnormal code = 10490-2) [facility] [id number] 23:22:00 Test Item Value Reference Range Interpretation Comments POC-Glucose Meter (test 173 mg/dL 70-110 H : TE STED AT [facility] code = 1538) [address] [place] [address], 770 30: Head Sampler/Techni vipin ID = [id number] for GUEVARA, ADEEL TTE Lab Interpretation (test Abnormal code = 80148-3) [facility] [id number] 23:22:00 Test Item Value Reference Range Interpretation Comments POC-Glucose Meter (test 173 mg/dL 70-110 H : TE STED AT [facility] code = 1538) [address] [place] [address], 770 30: Head Sampler/Techni vipin ID = [id number] for GUEVARA, ADEEL TTE Lab Interpretation (test Abnormal code = 44542-6) [facility] [id number] 23:22:00 Test Item Value Reference Range Interpretation Comments POC-GLUCOSE METER 173 mg/dL 70-110 H : TESTED A T [facility] 6720 (BEAKER) (test code = [facility], 1538) [address]: Head Sampler/Techni vipin ID = [id number] for GUEVARA, ADEEL TTE [id number] 10:54:00 Test Item Value Reference Range Interpretation Comments PTT (test code = 96228-8) 34.9 See_Comment [ Automated message] The system [employer] generated this result transmitted ref erence range: 22.5 - 3 6.0 seconds. The re ference range was not u sed to interpret this result as normal/abnor mal. Lab Interpretation (test Normal code = 48457-0) [facility]00 Test Item Value Reference Range Interpretation Comments PTT (test code = 62195-5) 34.9 See_Comment [ Automated message] The system [employer] generated this result transmitted ref erence range: 22.5 - 3 6.0 seconds. The re ference range was not u sed to interpret this result as normal/abnor mal. Lab Interpretation (test Normal code = 97214-1) [facility] 10:[facility]00 Test Item Value Reference Range Interpretation Comments PTT (test code = 99939-3) 34.9 See_Comment [ Automated message] The system [employer] generated this result transmitted ref erence range: 22.5 - 3 6.0 seconds. The re ference range was not u sed to interpret this result as normal/abnor mal. Lab Interpretation (test Normal code = 46645-5) [facility] 10:[facility]00 Test Item Value Reference Range Interpretation Comments PARTIAL THROMBOPLASTIN TIME 34.9 seconds 22.5-36.0 (BEAKER) (test code = 760) PROTHROMBIN TIME/[id number] 10:53:00 Test Item Value Reference Range Interpretation [...] is 2.5-3.5 for patients wiht mechanical heart valves.CBC with platelet count + automated [id number] 10:45:00 Test Item Value Reference Range Interpretation Comments WBC (test code = 6690-2) 6.0 See_Comment [A utomated message] The system [employer] generated this result transmitted ref erence range: 3.5 - 10 .5 K/L. The refe rence range was not u sed to interpret this result as normal/abnor mal. RBC (test code = 789-8) 4.08 See_Comment L [Au tomated message] The system [employer] generated this result transmitted ref erence range: 4.63 - 6 .08 M/L. The refe rence range was not u sed to interpret this result as normal/abnor mal. MCHC (test code = 786-4) 32.4 See_Comment L [A utomated message] The system [employer] generated this result transmitted ref erence range: [...] See_Comment [Aut omated message] 777-3) The system [employer] generated this result transmitted ref erence range: 150 - 45 0 K/CU MM. The referen ce range was not u sed to interpret this result as normal/abnor mal. MPV (test code = 10.8 fL 9.4-12.4 93082-2) nRBC (test code = 413) 0 See_Comment [Aut omated message] The system [employer] generated this result transmitted ref erence range: [...] See_Comment [Aut omated message] 670) The system [employer] generated this result transmitted ref erence range: 1.78 - 5 .38 K/L. The refe rence range was not u sed to interpret this result as normal/abnor mal. # Lymphs (test code = 1.29 See_Comment L [Auto mated message] 414) The system [employer] generated this result transmitted ref erence range: 1.32 - 3 .57 K/L. The refe rence range was not u sed to interpret this result as normal/abnor mal. # Monos (test code = 0.69 See_Comment [Autom ated message] 415) The system [employer] generated this result transmitted ref erence range: 0.30 - 0 .82 K/L. The refe rence range was not u sed to interpret this result as normal/abnor mal. # Eos (test code = 416) 0.20 See_Comment [Au tomated message] The system [employer] generated this result transmitted ref erence range: 0.04 - 0 .54 K/L. The refe rence range was not u sed to interpret this result as normal/abnor mal. # Baso (test code = 417) 0.04 See_Comment [A utomated message] The system [employer] generated this result transmitted ref erence range: 0.01 - 0 .08 K/L. The refe rence range was not u sed to interpret this result as normal/abnor mal. Immature 0 % 0-1 Granulocytes-Relative (test code = 2801) Lab Interpretation (test Abnormal code = 07124-7) [facility] with platelet count + automated [id number] 10:45:00 Test Item Value Reference Range Interpretation Comments WBC (test code = 6690-2) 6.0 See_Comment [A utomated message] The system [employer] generated this result transmitted ref erence range: 3.5 - 10 .5 K/L. The refe rence range was not u sed to interpret this result as normal/abnor mal. RBC (test code = 789-8) 4.08 See_Comment L [Au tomated message] The system [employer] generated this result transmitted ref erence range: 4.63 - 6 .08 M/L. The refe rence range was not u sed to interpret this result as normal/abnor mal. MCHC (test code = 786-4) 32.4 See_Comment L [A utomated message] The system [employer] generated this result transmitted ref erence range: [...] See_Comment [Aut omated message] 777-3) The system [employer] generated this result transmitted ref erence range: 150 - 45 0 K/CU MM. The referen ce range was not u sed to interpret this result as normal/abnor mal. MPV (test code = 10.8 fL 9.4-12.4 72377-6) nRBC (test code = 413) 0 See_Comment [Aut omated message] The system [employer] generated this result transmitted ref erence range: [...] See_Comment [Aut omated message] 670) The system [employer] generated this result transmitted ref erence range: 1.78 - 5 .38 K/L. The refe rence range was not u sed to interpret this result as normal/abnor mal. # Lymphs (test code = 1.29 See_Comment L [Auto mated message] 414) The system [employer] generated this result transmitted ref erence range: 1.32 - 3 .57 K/L. The refe rence range was not u sed to interpret this result as normal/abnor mal. # Monos (test code = 0.69 See_Comment [Autom ated message] 415) The system [employer] generated this result transmitted ref erence range: 0.30 - 0 .82 K/L. The refe rence range was not u sed to interpret this result as normal/abnor mal. # Eos (test code = 416) 0.20 See_Comment [Au tomated message] The system [employer] generated this result transmitted ref erence range: 0.04 - 0 .54 K/L. The refe rence range was not u sed to interpret this result as normal/abnor mal. # Baso (test code = 417) 0.04 See_Comment [A utomated message] The system [employer] generated this result transmitted ref erence range: 0.01 - 0 .08 K/L. The refe rence range was not u sed to interpret this result as normal/abnor mal. Immature 0 % 0-1 Granulocytes-Relative (test code = 2801) Lab Interpretation (test Abnormal code = 35781-4) [facility] + automated [id number] 10:45:00 Test Item Value Reference Range Interpretation Comments WBC (test code = 6690-2) 6.0 See_Comment [A utomated message] The system [employer] generated this result transmitted ref erence range: 3.5 - 10 .5 K/L. The refe rence range was not u sed to interpret this result as normal/abnor mal. RBC (test code = 789-8) 4.08 See_Comment L [Au tomated message] The system [employer] generated this result transmitted ref erence range: 4.63 - 6 .08 M/L. The refe rence range was not u sed to interpret this result as normal/abnor mal. MCHC (test code = 786-4) 32.4 See_Comment L [A utomated message] The system [employer] generated this result transmitted ref erence range: [...] See_Comment [Aut omated message] 777-3) The system [employer] generated this result transmitted ref erence range: 150 - 45 0 K/CU MM. The referen ce range was not u sed to interpret this result as normal/abnor mal. MPV (test code = 10.8 fL 9.4-12.4 74940-8) nRBC (test code = 413) 0 See_Comment [Aut omated message] The system [employer] generated this result transmitted ref erence range: [...] See_Comment [Aut omated message] 670) The system [employer] generated this result transmitted ref erence range: 1.78 - 5 .38 K/L. The refe rence range was not u sed to interpret this result as normal/abnor mal. # Lymphs (test code = 1.29 See_Comment L [Auto mated message] 414) The system [employer] generated this result transmitted ref erence range: 1.32 - 3 .57 K/L. The refe rence range was not u sed to interpret this result as normal/abnor mal. # Monos (test code = 0.69 See_Comment [Autom ated message] 415) The system [employer] generated this result transmitted ref erence range: 0.30 - 0 .82 K/L. The refe rence range was not u sed to interpret this result as normal/abnor mal. # Eos (test code = 416) 0.20 See_Comment [Au tomated message] The system [employer] generated this result transmitted ref erence range: 0.04 - 0 .54 K/L. The refe rence range was not u sed to interpret this result as normal/abnor mal. # Baso (test code = 417) 0.04 See_Comment [A utomated message] The system [employer] generated this result transmitted ref erence range: 0.01 - 0 .08 K/L. The refe rence range was not u sed to interpret this result as normal/abnor mal. Immature 0 % 0-1 Granulocytes-Relative (test code = 2801) Lab Interpretation (test Abnormal code = 29676-8) [facility] W/PLT COUNT & AUTO [id number] 10:45:00 Test Item Value Reference Range Interpretation [...] PERCENT (BEAKER) (test code = 2801) PROTHROMBIN [id number] 10:37:00 Test Item Value Reference Range Interpretation [...] is 2.5-3.5 for patients wiht mechanical heart valves.[id number] 10:37:00 Test Item Value Reference Range Interpretation Comments PARTIAL THROMBOPLASTIN TIME 32.0 seconds 22.5-36.0 (BEAKER) (test code = 760) CBC W/PLT COUNT & AUTO [id number] 10:24:00 Test Item Value Reference Range Interpretation [...] PERCENT (BEAKER) (test code = 2801) PROTHROMBIN TIME/[id number] 11:43:00 Test Item Value Reference Range Interpretation [...] is 2.5-3.5 for patients wiht mechanical heart valves.[id number] 11:43:00 Test Item Value Reference Range Interpretation Comments PARTIAL THROMBOPLASTIN TIME 23.3 seconds 22.5-36.0 (BEAKER) (test code = 760) CBC W/PLT COUNT & AUTO [id number] 11:34:00 Test Item Value Reference Range Interpretation [...] code = 2801) CT, CHEST, WITH IV [id number] 14:00:00FINAL REPORT TECHNIQUE: CT of the chest, abdomen, and pelvis WITH intravenous contrast and WITHOUT oral contrast. Dose modulation, iterative reconstruction, and/or weight- based adjustment of the mA/kV was utilized [...] coronary arteries. Thoracic aorta is normal in caliber with mild atherosclerotic opacification. HEPATOBILIARY: There is an irregular enhancing focus within the periphery of segment six and seven measuring 4.1 x 2 cm. (Axial image 49). In addition there are few enhancing nodular densities in the inferior tip of segment six measuring 1.6 x 2.5 cm.. There is a stable 7 mm and six focus within segment two likely representing hemangioma. Gallbladder is unremarkable. No biliary ductal dilatation.SPLEEN: No splenomegaly.PANCREAS: No focal masses or ductal dilatati on. ADRENALS: No adrenal nodules.KIDNEYS/URETERS: Postsurgical changes from partial nephrectomy withinterval enlargement of enhancing mass in the lower pole of the right kidney measuring 3.5 x 3.1 cm.There is direct extension of the mass into the right renal vein and IVC. The length of the tumor thrombus in the IVC measures 3.6 cm in cranial caudal dimension..PELVIC ORGANS/BLADDER: Unremarkable. PERITONEUM/RETROPERITONEUM: There are numerous intraperitoneal and retroperitoneal soft [...] MDReport Verified Date/Time: 02/15/2020 14:00:05 Reading Location: [address] Consult Reading Room CT, [id number] 14:00:00FINAL REPORT TECHNIQUE: CT of the chest, [...] coronary arteries. Thoracic aorta is normal in caliber with mild atherosclerotic opacification. HEPATOBILIARY: There is an irregular enhancing focus within the periphery of segment six and seven measuring 4.1 x 2 cm. (Axial image 49). In addition there are few enhancing nodular densities in the inferior tip of segment six measuring 1.6 x 2.5 cm.. There is a stable 7 mm and six focus within segment two likely representing hemangioma. Gallbladder is unremarkable. No biliary ductal dilatation.SPLEEN: No splenomegaly.PANCREAS: No focal masses or ductal dilatati on. ADRENALS: No adrenal nodules.KIDNEYS/URETERS: Postsurgical changes from partial nephrectomy withinterval enlargement of enhancing mass in the lower pole of the right kidney measuring 3.5 x 3.1 cm.There is direct extension of the mass into the right renal vein and IVC. The length of the tumor thrombus in the IVC measures 3.6 cm in cranial caudal dimension..PELVIC ORGANS/BLADDER: Unremarkable. PERITONEUM/RETROPERITONEUM: There are numerous intraperitoneal and retroperitoneal soft [...] MDReport Verified Date/Time: 02/15/2020 14:00:05 Reading Location: [facility] B1 C013X Ortho Consult Reading Room HIV AB/AG 4TH GEN W [id number] 12:57:03 Test Item Value Reference Range Interpretation Comments HIV AB/AG 4TH NON-REACTIVE NON-REACTIVE Unless Otherw ise GEN W RFLX (test Indicated, All Testing code = 39466-5) Performed At : [facility], [address] [place] [address] Laborator y Director: Ji Morton M.D. CLIA Number [id number] Cap Accreditation [place] o. [id number] [facility] [id number] 12:57:03 Test Item Value Reference Range Interpretation Comments HEP A IGM ANTIBODY NON-REACTIVE NON-REACTIVE (test code = 51205-3) HEP B CORE IGM NON-REACTIVE NON-REACTIVE ANTIBODY (test code = 56518-1) HEP BS ANTIGEN (test NON-REACTIVE NON-REACTIVE code = 5196-1) HEP C ANTIBODY (test NON-REACTIVE NON-REACTIVE code = 77405-2) INTERPRETATION (NOTE) Hepatitis A HEPATITIS A (test code serol ogy shows no = 84206) evidence of acu te hepatitis A. INTERPRETATION (NOTE) Hepatitis B HEPATITIS B (test code serol ogy shows no = 08931) evidence of acu te hepatitis B and no indication of exposure to hepatitis B vir us in the previous si xto eight months. INTERPRETATION (NOTE) Hepatitis C HEPATITIS C (test code serol ogy shows no = 42780) evidence of exp osure to hepatitisC v irus at this time. I t can take up to 12 m onths after exposure tothe hepatitis C vir us for antibodies to become detectab le in the blood in ce rtain patients. Unles s Otherwise Indic ated, All Testing Performed At: [facility], [address] [place] [address] Laborator y Director: Ji Morton M.D. CLIA Number [id number] [place] [id number] [facility]rl[facility]UU-[id number] 14:53:00 Test Item Value Reference Range Interpretation Comments POC-CREATININE 0.8 mg/dL 0.6-1.3 TESTED AT [facility] 7200 (ANJALI) (test GAVIN BLD G A code = 1859) [facility] 7703 0 POC-EGFR 121 mL/min/1.73M2 (ANJALI) (test code = 1860) CT, CHEST, WITH IV [id number] 10:23:00FINAL REPORT CT scan of the chest, abdomen and pelvis. MEDICAL HISTORY: Cancer of right kidney COMPARISON STUDY: May 03, 2019. TECHNIQUE: Contiguous helical slices were acquiredthrough the chest, abdomen and pelvis post administration of intravenous contrast. No oral contrast was administered. This exam was performed according to our department dose optimization program whichincludes automated exposure control, adjustment of the mA and/or kV according to the patient's size and/or use of iterative reconstruction technique. FINDINGS: The mediastinum demonstrates atherosclerosis but no suspicious masses or adenopathy. There are no pleural effusions. The tracheobronchial treeis clear with no endobronchial lesions. The pulmonary parenchyma demonstrates a 1 mm subpleural nodule in the right upper lobe on image 27. There is a 2 mm nodule in the right upper lobe on image 27. A2 mm subpleural nodule is seen in the right upper lobe on image 40 with that previously measured 1.3cm. A stable 1.1 cm opacity seen in the subpleural region of the lingula, nodule versus area of fibrosis. A tiny granuloma is seen in the right lower lobe on image 63. There is a 2 mm subpleural nodulein the right middle lobe on image 70. Atelectatic changes are seen. All nodules are stable with the exception of a nodule that has decreased in size. The liver, spleen, pancreas, and adrenal glands areunremarkable. The left kidney is within normal limits. The gallbladder and biliary tree are unremarkable. Postsurgical changes are seen in the right kidney related to partial nephrectomy. There are multiple enhancing nodules adjacent to the kidney including an 8 mm nodule near the upper pole, 1.1 cm nodule near the midpole, 9 mm nodule within the perinephric fat, 1.1 cm nodule within the perinephric fat adjacent to the lower pole, 1.0 cm nodule adjacent to the right iliacus muscle, 8 mm nodule adjacent to the psoas muscle, two nodules measuring 1.5 x 1.4 cm and 1.3 cm along the inferior aspect of the perinephric fascia and multiple other nodules suspicious [...] unchanged. One subpleural nodule has decreased in sizemay represent atelectasis or fibrosis.2. Status post partial right nephrectomy with multiple new enhancing soft tissue nodules suspicious for recurrent disease.3. No other significant change. Signed: Eleno Dawneport Verified Date/Time: 08/01/2019 10:23:19 Reading Location: [address] Body Reading Room CT, [id number] 10:23:00FINAL REPORT CT scan of the chest, abdomen and pelvis. MEDICAL HISTORY: Cancer of right kidney COMPARISON STUDY: May 03, 2019. TECHNIQUE: Contiguous helical slices were acquiredthrough the chest, abdomen and pelvis post administration of intravenous contrast. No oral contrast was administered. This exam was performed according to our department dose optimization program whichincludes automated exposure control, adjustment of the mA and/or kV according to the patient's size and/or use of iterative reconstruction technique. FINDINGS: The mediastinum demonstrates atherosclerosis but no suspicious masses or adenopathy. There are no pleural effusions. The tracheobronchial treeis clear with no endobronchial lesions. The pulmonary parenchyma demonstrates a 1 mm subpleural nodule in the right upper lobe on image 27. There is a 2 mm nodule in the right upper lobe on image 27. A2 mm subpleural nodule is seen in the right upper lobe on image 40 with that previously measured 1.3cm. A stable 1.1 cm opacity seen in the subpleural region of the lingula, nodule versus area of fibrosis. A tiny granuloma is seen in the right lower lobe on image 63. There is a 2 mm subpleural nodulein the right middle lobe on image 70. Atelectatic changes are seen. All nodules are stable with the exception of a nodule that has decreased in size. The liver, spleen, pancreas, and adrenal glands areunremarkable. The left kidney is within normal limits. The gallbladder and biliary tree are unremarkable. Postsurgical changes are seen in the right kidney related to partial nephrectomy. There are multiple enhancing nodules adjacent to the kidney including an 8 mm nodule near the upper pole, 1.1 cm nodule near the midpole, 9 mm nodule within the perinephric fat, 1.1 cm nodule within the perinephric fat adjacent to the lower pole, 1.0 cm nodule adjacent to the right iliacus muscle, 8 mm nodule adjacent to the psoas muscle, two nodules measuring 1.5 x 1.4 cm and 1.3 cm along the inferior aspect of the perinephric fascia and multiple other nodules suspicious [...] unchanged. One subpleural nodule has decreased in sizemay represent atelectasis or fibrosis.2. Status post partial right nephrectomy with multiple new enhancing soft tissue nodules suspicious for recurrent disease.3. No other significant change. Signed: lEeno Dawn MDReport Verified Date/Time: 08/01/2019 10:23:19 Reading Location: [facility] B1 C013Y CT Body Reading [facility], [id number] 12:48:00Reason for Exam:->cancer of right kidneyFINAL REPORT CT of the chest, abdomen and pelvis, with contrast Clinical History: cancer of right kidneycancer of right kidney Technique: CT of the chest, abdomen and pelvis is performed with intravenous contrast administration. This exam was performed according to our departmental dose optimization program which includes automated exposure control, adjustment of the mA and/or kVaccording to patient's size and/or use of iterative reconstructive technique. Comparison Film: December 23, 2018 and July 12, 2018 Discussion: Visualized thyroid gland is normal. There is no supraclavicular, axillary, mediastinal or hilar lymphadenopathy. Heart and pericardium are unremarkable. There are a few pulmonary nodules, without interval change. The largest is a subpleural 5 mm nodule in the right upper lobe. No new mass or consolidation, no pleural effusion. Central airways are patent, no significant bronchiectasis, or bronchial wall thickening. Grossly stable subcentimeter hypervascular focus at the dome of the left hepatic lobe is probably a hemangioma. No new liver mass. There is no biliary ductal dilatation, gallbladder is unremarkable. No liver mass is identified. No biliary ductal di latation, gallbladder is unremarkable. The spleen, pancreas, and adrenal glands are also unremarkable. Again seen is postsurgical change at the lower pole of the right kidney. No recurrent mass or abnormal fluid collection is identified. Kidneys demonstrate no radiopaque stone or hydronephrosis. Stable tiny hypodensity at the left upper pole is likely a cyst. No evidence of bowel obstruction, or abnormal bowel wall thickening. Normal appendix. In the pelvis, bladder is unremarkable. Prostate gland is enlarged. No ascites, free air or lymphadenopathy. Osseous structures demonstrate degenerative changes. Stable lucency at the left iliac crest. Impression: Status post partial right nephrectomy. No recurrent mass. Stable small pulmonary nodules, amenable to continued surveillance. Indeterminate lucency at the left iliac crest, also amenable to follow-up. Enlarged prostate gland. Signed: Lizzette Smith [facility] Ver[facility] Date/Time: 05/03/2019 12:48:10 Reading Location: [facility] B1 C013X [facility] Consult Reading Room CT, CHEST, WITH IV [id number] 12:48:00Restaging RCCReason for Exam:->cancer of right kidneyFINAL REPORT CT of the chest, abdomen and pelvis, with contrast Clinical History: cancer of right kidneycancer of right kidney Technique: CT of the chest, abdomen and pelvis is performed with intravenous contrast administration. This exam was performed according to our departmental dose optimization program which includes automated exposure control, adjustment of the mA and/or kVaccording to patient's size and/or use of iterative reconstructive technique. Comparison Film: December 23, 2018 and July 12, 2018 Discussion: Visualized thyroid gland is normal. There is no supraclavicular, axillary, mediastinal or hilar lymphadenopathy. Heart and pericardium are unremarkable. There are a few pulmonary nodules, without interval change. The largest is a subpleural 5 mm nodule in the right upper lobe. No new mass or consolidation, no pleural effusion. Central airways are patent, no significant bronchiectasis, or bronchial wall thickening. Grossly stable subcentimeter hypervascular focus at the dome of the left hepatic lobe is probably a hemangioma. No new liver mass. There is no biliary ductal dilatation, gallbladder is unremarkable. No liver mass is identified. No biliary ductal di latation, gallbladder is unremarkable. The spleen, pancreas, and adrenal glands are also unremarkable. Again seen is postsurgical change at the lower pole of the right kidney. No recurrent mass or abnormal fluid collection is identified. Kidneys demonstrate no radiopaque stone or hydronephrosis. Stable tiny hypodensity at the left upper pole is likely a cyst. No evidence of bowel obstruction, or abnormal bowel wall thickening. Normal appendix. In the pelvis, bladder is unremarkable. Prostate gland is enlarged. No ascites, free air or lymphadenopathy. Osseous structures demonstrate degenerative changes. Stable lucency at the left iliac crest. Impression: Status post partial right nephrectomy. No recurrent mass. Stable small pulmonary nodules, amenable to continued surveillance. Indeterminate lucency at the left iliac crest, also amenable to follow-up. Enlarged prostate gland. Signed: Lizzette Smith MDReport Verified Date/Time: 05/03/2019 12:48:10 Reading Location: [facility] B1 C013X [place] [facility] Consult Reading Room [id number]-[id number] 08:42:00 Test Item Value Reference Range Interpretation Comments POC-CREATININE 0.7 mg/dL 0.6-1.3 TESTED AT [facility] 7200 ([facility]) (test GAVIN BLD G A code = 1859) [facility] 7703 0 POC-EGFR 141 mL/min/1.73M2 ([facility]) (test code = 1860) CT, [id number] 12:11:00FINAL REPORT EXAM: CT Chest, Abdomen and Pelvis WITH contrast INDICATION: History of renal cancer. Z85.528 COMPARISON: CT abdomen pelvis dated 07/12/[address] dated 8TECHNIQUE: Chest, abdomen and pelvis were scanned utilizing a multidetector helical scanner from the lung apex to the pubic symphysis after administration of IV contrast. Coronal and sagittal reformations were obtained. Dose modulation, iterative reconstruction, and/or weight based adjustment of the m A/kV was utilized to reduce the radiation dose to as low as reasonably achievable. Routine protocol was performed. Scan was performed when during portal venous phase. IV CONTRAST: 150 mL of Isovue-300 ORAL CONTRAST: None. COMPLICATIONS: None RADIATION DOSE: Total DLP: 1311.23 mGy*cm Estimated effective dose: (DLP x 0.015 x size factor) mSv CTDIvol has been reviewed. It is below the limits set by the Radiation Protocol Committee (RPC). FINDINGS: LINES and TUBES: None. LUNGS AND AIRWAYS: Evaluation of the lungs are limited by respiratory motion. Stable 8 mm right upper lobe subpleural nodule. A few a dditional tiny subpleural right upper lobe nodules are [...] hepatic lobe segment II hyperenhancing focus (series 1, image 35). On prior multiphasic CT dated 07/12/2018, [...] prior CT, has resolved on today's exam. Nostones. GI TRACT: No abnormal distention, wall thickening, or evidence of bowel obstruction. Large rectal stool burden Appendix is normal. PELVIC ORGANS/BLADDER: Enlarged prostate gland. Mild bladder wall thickening. LYMPH NODES: No lymphadenopathy. VESSELS: Unremarkable. PERITONEUM / RETROPERITONEUM:No free air or fluid. BONES: Generalized demineralization. [...] MDReport Verified Date/Time: 12/24/2018 12:11:19 Reading Location: [facility] Room [address] [place] [address] CT, CHEST, WITH IV CONTRAST 2018-12-24 12:11:00FINAL REPORT EXAM: CT Chest, Abdomen and [...] as low as reasonably achievable. Routine protocol w as performed. Scan was performed when during portal venous phase. IV CONTRAST: 150 mL of Isovue-300 ORAL CONTRAST: None. COMPLICATIONS: None RADIATION DOSE: Total DLP: 1311.23 mGy*cm Estimated effective dose: (DLP x 0.015 x size factor) mSv CTDIvol has been reviewed. It is below the limits set by the Radiation Protocol Committee (RPC). FINDINGS: LINES and TUBES: None. LUNGS AND AIRWAYS: Evaluation ofthe lungs are limited by respiratory motion. Stable [...] Atherosclerotic calcification of coronary arteries. HEPATOBILIARY: 1.1 cmleft hepatic lobe segment II hyperenhancing focus (series 1, image 35). On prior multiphasic CT dated 07/12/2018, [...] Small fat-containing right inguinal hernia. Right mid abdominalwall subcutaneous fat stranding, likely postsurgical (series 1, image 66). IMPRESSION: 1.Stable lungnodules when compared to CT dated 07/11/2018.2.Postsurgical changes of partial right nephrectomy.3.1.1 cm left hepatic lobe hyperenhancing focus is probably a hemangioma. Close attention on follow-up examination.4.Large rectal stool burden, concerning for fecal impaction. Signed: Chauncey Diane Verified Date/Time: 12/24/2018 12:11:19 Reading Location: [place] [employer] Reading Room [address] [place] [address] RAD, CHEST, 2 [id number] 11:57:00Reason for Exam:->Z85.528FINAL REPORT EXAM: PA and lateral views of the chest. COMPARISON: Chest radiograph 10/25/2018 CLINICAL HISTORY: Z85.528 FINDINGS: Lines/tubes: None. Lungs: Mild low lung volumes. Improving bibasal atelectasis. Pleura: There is no pleural effusion or pneumothorax. Heart and mediastinum: Prominent cardiac silhouette. Bones and soft tissues: Severe degenerative changes of the left sh oulder with posttraumatic deformity of the left humeral head. IMPRESSION: Improved bilateral basilaratelectasis when compared to 10/25/2018. Signed: Preeti Chong Verified Date/Time: 12/23/2018 11:57:24 Reading Location: [facility] Reading Room [address] [place] [address] [id number] 11:35:00 Test Item Value Reference Range Interpretation Comments POC-CREATININE 0.8 mg/dL 0.6-1.3 TESTED AT [facility] 7200 ([facility]) (test [facility] A code = 1859) [facility] 7703 0 POC-EGFR 121 mL/min/1.73M2 ([facility]) (test code = 1860) TISSUE [id number] 09:12:00Surgical Pathology Report Case: [id number] Authorizing Provider: Stephanie Moffett MD Collected: 10/19/2018 1556 Ordering Location: [facility] Received: 10/19/2018 7374 SERVICES Pathologist: Cm Coker MD Specimens: A) - Lymph Node, Hilar Lymph Node B) - Lymph, Retroperitoneal Lymph node C) - Soft Tissue, Other, base of tumor D) - Soft Tissue, Other, Right renal mass A. LYMPH NODE, HILAR, EXCISION: - FIBROADIPOSE TISSUE, NEGATIVE FOR CARCINOMA - NO LYMPH NODE TISSUE IDENTIFIEDB. LYMPH NODE, RETROPERITONEAL, EXCISION: - ONE BENIGN LYMPH NODE (0/1)C. KIDNEY, BASE OF TUMOR, EXCISION: - FIBROADIPOSE TISSUE, NEGATIVE FOR CARCINOMAD. KIDNEY, RIGHT, PARTIAL NEPHRECTOMY: - RENAL CELL CARCINOMA, FAVOR CLEAR CELL TYPE, WITH SARCOMATOID DIFFERENTIATION, REJI NUCLEAR GRADE 4 OF 4, 6.0 CM IN GREATEST DIMENSION, CONFINED TO KIDNEY (SEE COMMENT) - TUMOR NECROSIS PRESENT (10%) - NEGATIVE FOR LYMPHOVASCULAR INVASION - SURGICAL RESECTION MARGINS, NEGATIVE FOR TUMOR - AJCC CLASSIFICATION (7TH EDITION) pT1b, N0, Mx (SEE SYNOPTIC REPORT) Signing Pathologist Direct Phone Line: [phone] signed by Cm Modi MD on 11/01/2018 at 9:12 AMD. The tumor show areas morphologically compatible with clear cell type. Additionally, areas with spindle tumor cells are seen, compatible with sarcomatoid transformation. Areas with papillary features are also seen. By immunohistochemistry, the tumor cells are positive for PAX8 and AMCAR, while predominantly negative for CK7 and CAM5.2. Ki67 labeli ng index is approximately 3-5%. Additional immunostains will be sent out for further evaluation. An addendum will follow.Intradepartmental consultation: Dr. Fredy Lara has reviewed selected slides of this case and concurs with the interpretation of sarcomatoid differentiation.KIDNEY: Nephrectomy (Kidney Res - All Specimens)SPECIMEN Procedure: Partial nephrectomy Specimen Laterality: Right TUMOR Tumor Site: Not specified Histologic Type: Clear cell renal cell carcinoma Histologic Grade (WHO / ISUP Grade): G4: Extreme nuclear pleomorphism and / or multi-nuclear giant cells and / or rhabdoid and /or sarcomatoid differentiation Tumor Size: Greatest dimension in Centimeters (cm): 6 Centimeters (cm) Additional Dimension in Centimeters (cm): 6 Centimeters (cm) Additional Dimension in Centimeters (cm): 4 Centimeters (cm) Tumor Focality: Unifocal Tumor Extent: Tumor Extension: Tumor limited to kidney Accessory Findings: Sarcomatoid Features: Present Rhabdoid Features: Not identified Tumor Necrosis: Present Percentage of Necrosis: 10 % Lymphovascular Invasion: Not identified MARGINS Margins: Uninvolved by invasive carcinoma LYMPH NODES Number of Lymph Nodes Involved: 0 Number of Lymph Nodes Examined: 1 PATHOLOGIC STAGE CLASSIFICATION (pTNM, AJCC 8th Edition) TNM Descriptors: Not applicable Primary Tumor (pT): pT1b Regional Lymph Nodes (pN): pN0 ADDITIONAL FINDINGS Pathologic Findings in Nonneoplastic Kidney: Insufficient tissue 02511, 34761L3, 23537, 20862, 59040o8Nwjok massA. Hilar lymph node; B. Retroperitoneal lymph node; C. Base of tumor'; D. Right renal massA. Received labeled with the patient's name and information and "lymph node" is a single possible lymphoid tissue measuring 1.2 x 0.8 x 0. 3 cm. The specimen is submitted in toto in cassette A1.B. Received labeled with the patient'sname and information and "lymph node" is a 1.0 x 0.8 x 0.3 cm anthony-pink possible lymph node. The specimen is submitted in toto in cassette B1. C. Received fresh for intraoperative consultation labeled with the patient's name and information and "soft tissue" is a 0.5 x 0.4 x 0.2 cm anthony- pink soft tissuespecimen. A touch prep is performed. The specimen is submitted [...] the adipose and kidney parenchyma present grossly. Nuclear Waste Management Engineer sections of tumor and surrounding tissue are submitted in D1 to D8. SB/SuzyEY, RIGHT, BASE OF TUMOR: - FI BROMUSCULAR AND ADIPOSE TISSUE - NO OVERT TUMOR IS SEENThese results were reported to Dr. Moffett in OR-[address] Modi at 6 p.m., on October 19, 2018. Performed.The interpretation of this case included the use of immunohistochemistry or special stains.On D7: [place]-8, Cam5.2, CK7, Ki-67, AMCARImmunohistochemistry technical testing was performed at [facility] [place] [facility] Pathology Laboratory where it was developed and [...] complexity clinical laboratory testing.SPUTUM CULTURE + GRAM [id number] 09:23:00 Test Item Value Reference Range Interpretation Comments CULTURE (BEAKER) 4+ Normal respiratory (test code = 1095) david present GRAM STAIN RESULT <1+ WBCs (BEAKER) (test code = 1123) GRAM STAIN RESULT 0-5 epithelial cells (BEAKER) (test code = 63346) GRAM STAIN RESULT 1+ gram positive cocci (BEAKER) (test code = in chains, pairs and 09851) clusters POCT-GLUCOSE [id number] 16:57:00 Test Item Value Reference Range Interpretation Comments POC-GLUCOSE METER 246 mg/dL 70-110 H TESTED AT [place] [address] ([facility]) (test code = [facility] 1538) [address] POCT-GLUCOSE [id number] 12:56:00 Test Item Value Reference Range Interpretation Comments POC-GLUCOSE METER 238 mg/dL 70-110 H TESTED AT [place] [address] ([facility]) (test code = [facility] 1538) [address] CBC W/PLT COUNT & AUTO [id number] 08:28:00 Test Item Value Reference Range Interpretation [...] 0-1 PERCENT (BEAKER) (test code = 2801) [id number] 08:26:00 Test Item Value Reference Range Interpretation Comments PHOSPHORUS (BEAKER) (test code = 3.4 mg/dL 2.3-4.7 604) [id number] 08:26:00 Test Item Value Reference Range Interpretation Comments MAGNESIUM (BEAKER) (test code = 1.9 mg/dL 1.6-2.6 627) BASIC METABOLIC [id number] 08:26:00 Test Item Value Reference Range Interpretation [...] NOT APPLICABLE FOR DIALYSIS PATIEN TS. POCT-GLUCOSE [id number] 21:52:00 Test Item Value Reference Range Interpretation Comments POC-GLUCOSE METER 130 mg/dL 70-[address] [facility] 6720 ([facility]) (test code = [facility] Rhona [facility] 1538) [address] POCT-GLUCOSE [id number] 16:41:00 Test Item Value Reference Range Interpretation Comments POC-GLUCOSE METER 242 mg/dL 70-[address] [facility] 6720 ([facility]) (test code = [facility] Rhona [facility] 1538) [address] RAD, CHEST, 1 VIEW, NON [id number] 15:52:00Reason for exam:->eval for pulmonary edemaShould this be performed at the bedside?->YesFINAL REPORT AP view of the chest dated 10/25/2018 COMPARISON: October 24, 2018 CLINICAL INFORMATION: eval for pulmonary edema Comment: Heart is normal in size. Pulmonary vasculature is unremarkable. Subsegmental atelectasis is seen in both lung bases. The rest of the lungs are clear. No pulmonary infiltrate or pleural effusion is present. Impression: Bibasilar subsegmental atelectasis. Signed: Laura Hannah MDReport Verified Date/Time: 10/25/2018 15:52:14 Reading Location: [facility] C013W Consult Reading Room POCT-GLUCOSE [id number] 11:57:00 Test Item Value Reference Range Interpretation Comments POC-GLUCOSE METER 202 mg/dL 70-[address] [facility] 6720 (BEAKER) (test code = ELIAS Melgoza [facility] 1538) [address] POCT-GLUCOSE [id number] 08:32:00 Test Item Value Reference Range Interpretation Comments POC-GLUCOSE METER 179 mg/dL 70-[address] [facility] 6720 [facility] (test code = [facility] 1538) [address] [id number] 07:11:00 Test Item Value Reference Range Interpretation Comments PHOSPHORUS (BEAKER) (test code = 3.3 mg/dL 2.3-4.7 604) [id number] 07:11:00 Test Item Value Reference Range Interpretation Comments MAGNESIUM (BEAKER) (test code = 1.7 mg/dL 1.6-2.6 627) BASIC METABOLIC [id number] 07:11:00 Test Item Value Reference Range Interpretation [...] PATIEN TS. CBC W/PLT COUNT & AUTO [id number] 06:57:00 Test Item Value Reference Range Interpretation [...] code = 2801) SPUTUM CULTURE + GRAM [id number] 01:06:00 Test Item Value Reference Range Interpretation Comments CULTURE (BEAKER) Oropharyngeal (test code = 1095) contamination, specimen rejected. Recollect requested. GRAM STAIN RESULT <1+ WBCs (BEAKER) (test code = 1123) GRAM STAIN RESULT >25 epithelial cells (BEAKER) (test code = 28421) GRAM STAIN RESULT <1+ gram negative rods (BEAKER) (test code = 80423) GRAM STAIN RESULT 1+ gram positive rods (BEAKER) (test code = 494942) GRAM STAIN RESULT 4+ gram positive cocci in (BEAKER) (test code chains, pairs and = 281067) clusters POCT-GLUCOSE [id number] 18:16:00 Test Item Value Reference Range Interpretation Comments POC-GLUCOSE METER 173 mg/dL 70-110 H TESTED AT [place] [address] ([facility]) (test code = [place] 284798) [address] RAD, CHEST, 1 VIEW, NON [id number] 15:21:00Reason for exam:->SOBShould this be performed at the bedside?->YesFINAL REPORT AP chest HISTORY: Shortness of breath COMPARISON: 10/23/2017 IMPRESSION:Intact skeleton. Heart size normal. Bibasilar atelectasis. No pneumothorax. Signed: Jeremy Dougherty MDReport Verified Date/Time: 10/24/2018 15:21:04 Reading Location: [address] Reading Room POCT-GLUCOSE [id number] 12:58:00 Test Item Value Reference Range Interpretation Comments POC-GLUCOSE METER 315 mg/dL 70-110 H TESTED AT [place] [address] ([facility]) (test code = ELIAS Melgoza [facility] 1538) [address] [id number] 07:04:00 Test Item Value Reference Range Interpretation Comments PHOSPHORUS (BEAKER) (test code = 4.1 mg/dL 2.3-4.7 604) [id number] 07:04:00 Test Item Value Reference Range Interpretation Comments MAGNESIUM (BEAKER) (test code = 1.7 mg/dL 1.6-2.6 627) BASIC METABOLIC [id number] 07:04:00 Test Item Value Reference Range Interpretation [...] PATIEN TS. CBC W/PLT COUNT & AUTO [id number] 06:56:00 Test Item Value Reference Range Interpretation [...] PERCENT (BEAKER) (test code = 2801) POCT-GLUCOSE [id number] 21:33:00 Test Item Value Reference Range Interpretation Comments POC-GLUCOSE METER 195 mg/dL 70-[address] [facility] 6720 (BEAKER) (test code = ELIAS Rhona [facility] 1538) [address] RAD, ABDOMEN/KUB, 1 VIEW [id number] 20:09:00Reason for exam:->abdominal distentionShould this be performed at the bedside?->YesFINAL REPORT Abdomen one view Comparison: None. Reason for exam: abdominal diste ntion Findings: Supine view of the abdomen demonstrates diffuse gaseous distention of small and large bowel loops compatible with an ileus. There are no abnormal calcifications. There are mild atelectatic changes in the left lung base. Impression:Findings compatible with an ileus. Signed: Angel Ashton Verified Date/Time: 10/23/2018 20:09:42 Reading Location: [facility] C013Y CT Body Reading Room POCT-GLUCOSE [id number] 16:49:00 Test Item Value Reference Range Interpretation Comments POC-GLUCOSE METER 311 mg/dL 70-110 H TESTED AT [place] [address] ([facility]) (test code = ELIAS Melgoza [place] 1538) [address] POCT-GLUCOSE [id number] 13:44:00 Test Item Value Reference Range Interpretation Comments POC-GLUCOSE METER 239 mg/dL 70-110 H TESTED AT [place] [address] ([facility]) (test code = ELIAS Melgoza [place] 1538) [address] RAD, CHEST, 1 VIEW, NON [id number] 08:59:00Reason for exam:->SOBShould this be performed at the bedside?->YesFINAL REPORT RAD, CHEST, 1 VIEW, NON DEPT INDICATION: SOB COMPARISON: October FINDINGS: Portable frontal view of the chest. IMPRESSION: Support Lines: External leads Lungs and pleura: Low lung volumes with consequent basilar crowding and basilar subsegmental atelectasis. Nofrank airspace edema. Superimposed infection may be excluded clinically. No pneumothorax.Heart and mediastinum: Stable contours. Additional findings: None. Signed: Blanche Loya Verified Date/Time: 10/23/2018 08:59:13 Reading Location: [facility] C013V Neuro Reading Room -GLUCOSE [id number] 08:09:00 Test Item Value Reference Range Interpretation Comments POC-GLUCOSE METER 185 mg/dL 70-110 H TESTED AT [place] [address] ([facility]) (test code = ELIAS Melgoza [place] 1538) [address] [id number] 06:28:00 Test Item Value Reference Range Interpretation Comments PHOSPHORUS ([facility]) (test code = 3.1 mg/dL 2.3-4.7 604) [id number] 06:28:00 Test Item Value Reference Range Interpretation Comments MAGNESIUM (BEAKER) (test code = 1.7 mg/dL 1.6-2.6 627) BASIC METABOLIC [id number] 06:28:00 Test Item Value Reference Range Interpretation [...] APPLICABLE FOR DIALYSIS PATIEN TS. HEMOGLOBIN AND [id number] 05:24:00 Test Item Value Reference Range Interpretation Comments HEMOGLOBIN (BEAKER) (test code = 9.3 GM/DL 13.7-17.5 L 410) HEMATOCRIT (BEAKER) (test code = 29.8 % 40.1-51.0 L 411) CREATININE, BODY [id number] 01:47:00 Test Item Value Reference Range Interpretation Comments CREATININE FLUID (BEAKER) (test 0.91 mg/dL code = 677) Reference Range: No Normals Assay performance has not been validated for this type of specimen.Please place ostomy bag over midline wound to collect fluid to send for CreatininePOCT-GLUCOSE [id number] 21:35:00 Test Item Value Reference Range Interpretation Comments POC-GLUCOSE METER 213 mg/dL 70-[address] [facility] 6720 (BEAKER) (test code = ELIAS MOELLER 1538) [address] POCT-GLUCOSE [id number] 19:01:00 Test Item Value Reference Range Interpretation Comments POC-GLUCOSE METER 202 mg/dL 70-[address] [facility] 6720 (BEAKER) (test code = ELIAS Melgoza [facility] 1538) [address] [id number] 15:55:00 Test Item Value Reference Range Interpretation Comments PARTIAL THROMBOPLASTIN TIME 38.0 seconds 22.5-36.0 H (BEAKER) (test code = 760) PROTHROMBIN [id number] 15:54:00 Test Item Value Reference Range Interpretation Comments PROTIME (BEAKER) (test code = 15.4 seconds 11.7-14.7 H 759) INR (BEAKER) (test code = 370) 1.2 <=5.9 RECOMMENDED COUMADIN/WARFARIN INR THERAPY RANGESSTANDARD DOSE: 2.0 - 3.0 Includes: PROPHYLAXIS for venous thrombosis, systemic embolization; TREATMENT for venous thrombosis and/or pulmonary embolus.HIGH RISK: Target INR is 2.5-3.5 for patients with mechanical heart valves.[id number] 15:44:00 Test Item Value Reference Range Interpretation Comments MAGNESIUM (BEAKER) 2.0 mg/dL 1.6-2.6 Specimen slightly (test code = 627) hemolyzed BASIC METABOLIC [id number] 15:44:00 Test Item Value Reference Range Interpretation [...] APPLICABLE FOR DIALYSIS PATIEN TS. HEMOGLOBIN AND [id number] 15:31:00 Test Item Value Reference Range Interpretation Comments HEMOGLOBIN (BEAKER) (test code = 9.5 GM/DL 13.7-17.5 L 410) HEMATOCRIT (BEAKER) (test code = 29.8 % 40.1-51.0 L 411) POCT-GLUCOSE [id number] 13:55:00 Test Item Value Reference Range Interpretation Comments POC-GLUCOSE METER 252 mg/dL 70-[address] [facility] 6720 (BEAKER) (test code = ELIAS Melgoza [place] 1537) [address] HEPATIC FUNCTION [id number] 11:12:00 Test Item Value Reference Range Interpretation [...] 6-55 347) RAD, CHEST, 1 VIEW, NON [id number] 09:35:00Reason for exam:->SOBShould this be performed at the bedside?->YesFINAL REPORT Portable chest. CLINICAL HISTORY: SOB. COMPARISON STUDY: Chest x-ray from yesterday. FINDINGS: The cardiac silhouette is enlarged. The pulmonary parenchyma demonstrates increased interstitial and atelectatic changes, similar to previous. No pneumothorax is seen. Degenerative changes are noted. IMPRESSION: No significant change. Signed: Eleno Dawneport Verified Date/Time: 10/22/2018 09:35:30 Reading Location: [facility] Reading Room POCT- GLUCOSE [id number] 07:52:00 Test Item Value Reference Range Interpretation Comments POC-GLUCOSE METER 161 mg/dL 70-[address] [facility] 6720 (BEAKER) (test code = ELIAS [place] 1538) [address] [id number] 05:48:00 Test Item Value Reference Range Interpretation Comments PHOSPHORUS (BEAKER) (test code = 2.6 mg/dL 2.3-4.7 604) [id number] 05:48:00 Test Item Value Reference Range Interpretation Comments MAGNESIUM (BEAKER) (test code = 1.8 mg/dL 1.6-2.6 627) BASIC METABOLIC [id number] 05:48:00 Test Item Value Reference Range Interpretation [...] APPLICABLE FOR DIALYSIS PATIEN TS. HEMOGLOBIN AND [id number] 05:04:00 Test Item Value Reference Range Interpretation Comments HEMOGLOBIN (BEAKER) (test code = 8.7 GM/DL 13.7-17.5 L 410) HEMATOCRIT (BEAKER) (test code = 27.9 % 40.1-51.0 L 411) POCT-GLUCOSE [id number] 21:42:00 Test Item Value Reference Range Interpretation Comments POC-GLUCOSE METER 176 mg/dL 70-[address] [facility] 6720 ([facility]) (test code = ELIAS [place] 1538) [address] RAD, CHEST, 2 [id number] 20:45:00Reason for exam:->Pre-opShould this be performed at the bedside?->NoFINAL REPORT Examination: Two view Chest X-ray. CLINICAL HISTORY: Preoperative evaluation, surgery unspecified COMPARISON: 07/23/2012 2 views of the upright chest are submitted. The examination is significantly limited by patient body habitus, low lung volumes and arm position on the lateral view obscuring the entire chest. The cardiac silhouette is stable in its enlargement. There is central pulmonary vascular congestion. The right hemidiaphragm is elevated. Bilateral mid and lo wer lung opacities may reflect a combination of atelectasis and edema but pneumonitis should be excluded clinically. There is no pneumothorax or acute bony abnormality. Degenerative changes are presentin the shoulder and spine. Signed: Annie De La Cruz MDReport Verified Date/Time: 10/21/2018 20:45:31 Reading Location: [address] Reading Room POCT-GLUCOSE [id number] 18:43:00 Test Item Value Reference Range Interpretation Comments POC-GLUCOSE METER 237 mg/dL 70-[address] [facility] 6720 ([facility]) (test code = ELIAS Melgoza [facility] 1538) [address] [id number] 16:57:00 Test Item Value Reference Range Interpretation Comments PARTIAL THROMBOPLASTIN TIME 37.9 seconds 22.5-36.0 H ([facility]) (test code = 760) Draw at 4pm pleaseDraw at 4pm pleasePROTHROMBIN [id number] 16:55:00 Test Item Value Reference Range Interpretation Comments PROTIME ([facility]) (test code = 16.1 seconds 11.7-14.7 H 759) INR ([facility]) (test code = 370) 1.3 <=5.9 RECOMMENDED COUMADIN/WARFARIN INR THERAPY RANGESSTANDARD DOSE: 2.0 - 3.0 Includes: PROPHYLAXIS for venous thrombosis, systemic embolization; TREATMENT for venous thrombosis and/or pulmonary embolus.HIGH RISK: Target INR is 2.5-3.5 for patients with mechanical heart valves.Draw at 4pm pleaseDraw at 4pmplease HEMOGLOBIN AND [id number] 16:43:00 Test Item Value Reference Range Interpretation Comments HEMOGLOBIN (BEAKER) (test code = 9.4 GM/DL 13.7-17.5 L 410) HEMATOCRIT (BEAKER) (test code = 30.8 % 40.1-51.0 L 411) Draw at 4pm pleasePOCT-GLUCOSE [id number] 14:06:00 Test Item Value Reference Range Interpretation Comments POC-GLUCOSE METER 193 mg/dL 70-[address] [facility] 6720 (BEAKER) (test code = ANGELOSALTY [place] 1538) 79[address] [id number] 10:38:00 Test Item Value Reference Range Interpretation Comments PHOSPHORUS (BEAKER) (test code = 3.2 mg/dL 2.3-4.7 604) [id number] 10:38:00 Test Item Value Reference Range Interpretation Comments MAGNESIUM (BEAKER) (test code = 2.0 mg/dL 1.6-2.6 627) BASIC METABOLIC [id number] 10:38:00 Test Item Value Reference Range Interpretation [...] APPLICABLE FOR DIALYSIS PATIEN TS. HEMOGLOBIN AND [id number] 08:59:00 Test Item Value Reference Range Interpretation Comments HEMOGLOBIN (BEAKER) (test code = 9.2 GM/DL 13.7-17.5 L 410) HEMATOCRIT (BEAKER) (test code = 29.0 % 40.1-51.0 L 411) POCT-GLUCOSE [id number] 07:58:00 Test Item Value Reference Range Interpretation Comments POC-GLUCOSE METER 170 mg/dL 70-110 H TESTED AT [place] [address] [facility] (test code = [facility] Rhona [facility] 1538) [address] POCT-GLUCOSE [id number] 00:50:00 Test Item Value Reference Range Interpretation Comments POC-GLUCOSE METER 214 mg/dL 70-110 H TESTED AT [place] [address] ([facility]) (test code = [facility] Rhona [facility] 1538) 19950 POCT-GLUCOSE [id number] 17:28:00 Test Item Value Reference Range Interpretation Comments POC-GLUCOSE METER 260 mg/dL 70-110 H TESTED AT [place] [address] ([facility] (test code = [facility] 1538) [address] [id number] 16:02:00 Test Item Value Reference Range Interpretation Comments MAGNESIUM (BEAKER) (test code = 1.5 mg/dL 1.6-2.6 L 627) POCT-GLUCOSE [id number] 14:49:00 Test Item Value Reference Range Interpretation Comments POC-GLUCOSE METER 248 mg/dL 70-110 H TESTED AT [place] [address] ([facility]) (test code = [facility] 1538) 36[address] BASIC METABOLIC [id number] 07:27:00 Test Item Value Reference Range Interpretation [...] APPLICABLE FOR DIALYSIS PATIEN TS. HEMOGLOBIN AND [id number] 06:39:00 Test Item Value Reference Range Interpretation Comments HEMOGLOBIN (BEAKER) (test code = 9.9 GM/DL 13.7-17.5 L 410) HEMATOCRIT (BEAKER) (test code = 31.7 % 40.1-51.0 L 411) POCT-GLUCOSE [id number] 06:29:00 Test Item Value Reference Range Interpretation Comments POC-GLUCOSE METER 205 mg/dL 70-[address] [facility] 67 ([facility] (test code = [facility] 1538) 297[address] POCT-GLUCOSE [id number] 22:44:00 Test Item Value Reference Range Interpretation Comments POC-GLUCOSE METER 234 mg/dL 70-110 H TESTED AT [place] [address] ([facility]) (test code = [facility] 1538) [address] BASIC METABOLIC [id number] 20:57:00 Test Item Value Reference Range Interpretation [...] APPLICABLE FOR DIALYSIS PATIEN TS. HEMOGLOBIN AND [id number] 20:39:00 Test Item Value Reference Range Interpretation Comments HEMOGLOBIN (BEAKER) (test code = 10.2 GM/DL 13.7-17.5 L 410) HEMATOCRIT (BEAKER) (test code = 31.8 % 40.1-51.0 L 411) POCT-GLUCOSE [id number] 20:19:00 Test Item Value Reference Range Interpretation Comments POC-GLUCOSE METER 221 mg/dL 70-[address] [facility] 6720 (BEAKER) (test code = ELIAS Melgoza [place] 1538) 24809 CALCIUM, [id number] 18:02:00 Test Item Value Reference Range Interpretation Comments CALCIUM IONIZED (BEAKER) (test 1.01 mmol/L 1.12-1.27 L code = 698) PH, BLOOD (BEAKER) (test code = 7.38 1810) BLOOD GAS, [id number] 18:02:00 Test Item Value Reference Range Interpretation [...] 37.0 C (test code = 1818) POTASSIUM-STAT [id number] 18:02:00 Test Item Value Reference Range Interpretation Comments POTASSIUM (BEAKER) (test code = 3.2 meq/L 3.6-5.5 L 379) GLUCOSE-STAT [id number] 18:02:00 Test Item Value Reference Range Interpretation Comments GLUCOSE RANDOM (BEAKER) (test code 164 mg/dL 70-110 H = 652) HGB/HCT (H&H) - STAT [id number] 18:02:00 Test Item Value Reference Range Interpretation Comments HEMOGLOBIN (BEAKER) (test code = 9.6 g/dL 13.0-16.8 L 410) HEMATOCRIT (BEAKER) (test code = 28.0 % 40.0-50.0 L 411) SODIUM NA-STAT [id number] 18:01:00 Test Item Value Reference Range Interpretation Comments SODIUM (BEAKER) (test code = 381) 136 meq/L 135-148 CALCIUM, [id number] 15:06:00 Test Item Value Reference Range Interpretation Comments CALCIUM IONIZED (BEAKER) (test 1.08 mmol/L 1.12-1.27 L code = 698) PH, BLOOD (BEAKER) (test code = 7.46 6270) BLOOD GAS, [id number] 15:06:00 Test Item Value Reference Range Interpretation [...] (test 37.0 C code = 1818) GLUCOSE-STAT [id number] 15:06:00 Test Item Value Reference Range Interpretation Comments GLUCOSE RANDOM (BEAKER) (test code 117 mg/dL 70-110 H = 652) HGB/HCT (H&H) - STAT [id number] 15:06:00 Test Item Value Reference Range Interpretation Comments HEMOGLOBIN (BEAKER) (test code = 10.9 g/dL 13.0-16.8 L 410) HEMATOCRIT (BEAKER) (test code = 32.0 % 40.0-50.0 L 411) SODIUM NA-STAT [id number] 15:05:00 Test Item Value Reference Range Interpretation Comments SODIUM (BEAKER) (test code = 381) 139 meq/L 135-148 POTASSIUM-STAT [id number] 15:05:00 Test Item Value Reference Range Interpretation Comments POTASSIUM (BEAKER) (test code = 3.6 meq/L 3.6-5.5 379) [id number] 12:05:00 Test Item Value Reference Range Interpretation Comments SODIUM (BEAKER) (test 139 meq/L 136-145 code = 381) POTASSIUM (BEAKER) 4.3 meq/L 3.5-5.1 Specimen slightly (test code = 379) hemolyzed CHLORIDE (BEAKER) 104 meq/L 98-107 (test code = 382) CO2 (BEAKER) (test 25 meq/L 22-29 code = 355) BUN AND [id number] 12:05:00 Test Item Value Reference Range Interpretation [...] S NOT APPLICABLE FOR DIALYSIS PATIEN TS. [id number] 11:46:00 Test Item Value Reference Range Interpretation Comments HEMOGLOBIN (BEAKER) (test code = 11.5 GM/DL 13.7-17.5 L 410) POCT-GLUCOSE [id number] 11:19:00 Test Item Value Reference Range Interpretation Comments POC-GLUCOSE METER 133 mg/dL 70-[address] [facility] 6720 (ANJALI) (test code = ELIAS Melgoza [place] [address]) [address] POCT-GLUCOSE [id number] 14:25:00 Test Item Value Reference Range Interpretation Comments POC-GLUCOSE METER 366 mg/dL 70-110 H Baby teste d Mother ID (ANJALI) (test code = used/T ESTED AT [facility] 1538) 6720 KARL [facility] [address] POCT-GLUCOSE [id number] 07:42:00 Test Item Value Reference Range Interpretation Comments POC-GLUCOSE METER 237 mg/dL 70-[address] [facility] 6720 (BEAKER) (test code = ELIAS Melgoza [place] 1538) [address] BASIC METABOLIC [id number] 05:07:00 Test Item Value Reference Range Interpretation [...] 150-450 code = 756) MEAN PLATELET VOLUME ([facility]) 10.7 fL 9.4-12.4 (test code = 754) NUCLEATED RED BLOOD CELLS 0 /100 WBC 0-0 ([facility]) (test code = 413) POCT-GLUCOSE [id number] 22:48:00 Test Item Value Reference Range Interpretation Comments POC-GLUCOSE METER 166 mg/dL 70-110 H TESTED AT [place] [address] ([facility]) (test code = ELIAS Melgoza [facility] 1538) [address] [id number] 21:21:00 Test Item Value Reference Range Interpretation Comments ACTIVATED CLOTTING TIME 268 sec TEST ED AT [place] [address] ([facility]) (test code = ELIAS Melgoza [place] 441) [address] POCT-GLUCOSE [id number] 17:32:00 Test Item Value Reference Range Interpretation Comments POC-GLUCOSE METER 164 mg/dL 70-110 H TESTED AT [place] [address] ([facility]) (test code = ELIAS Melgoza [facility] 1538) 63144 POCT-GLUCOSE [id number] 12:02:00 Test Item Value Reference Range Interpretation Comments POC-GLUCOSE METER 220 mg/dL 70-110 H TESTED AT [place] [address] ([facility]) (test code = ELIAS Melgoza [facility] 1538) 47563 POCT-GLUCOSE [id number] 08:11:00 Test Item Value Reference Range Interpretation Comments POC-GLUCOSE METER 228 mg/dL 70-110 H TESTED AT [place] [address] ([facility]) (test code = ELIAS Melgoza [facility] 1538) [address] LACTATE DEHYDROGENASE (LDH)2018-07-15 06:51:00 Test Item Value Reference Range Interpretation Comments LACTATE DEHYDROGENASE ([facility]) (test 262 U/L 125-220 H code = 635) POCT-GLUCOSE [id number] 06:06:00 Test Item Value Reference Range Interpretation Comments POC-GLUCOSE METER 186 mg/dL 70-110 H TESTED AT [place] [address] ([facility]) (test code = ELIAS Melgoza [facility] 1538) 7[address] BLOOD [id number] 05:01:00 Test Item Value Reference Range Interpretation Comments CULTURE ([facility]) (test No growth in 5 days code = 1095) BLOOD [id number] 05:01:00 Test Item Value Reference Range Interpretation Comments CULTURE (ANJALI) (test No growth in 5 days code = 1095) POCT-GLUCOSE [id number] 21:38:00 Test Item Value Reference Range Interpretation Comments POC-GLUCOSE METER 267 mg/dL 70-[address] [facility] 6720 (ANJALI) (test code = ELIAS Melgoza [facility] 1538) [address] POCT-GLUCOSE [id number] 17:28:00 Test Item Value Reference Range Interpretation Comments POC-GLUCOSE METER 405 mg/dL 70-110 HH Notified R Donald PRICE/TESTED (ANJALI) (test code = AT [facility] 6720 [facility] 7703 0 PET, CARDIAC PERFUSION MULTIPLE STUDIES, REST AND [id number] 12:29:00 Reason for exam:->preoperative risk stratficationFINAL REPORT PROCEDURE: Rest/Stress MYOCARDIAL PERFUSION PET with regadenoson\\XA9\\ CPT CODE: 76466 INDICATION: Preoperative risk stratification for renal mass removal HISTORY: Cardiac risk factors: Diabetes, hypertension, stroke. Other cardiovascular history: No reported CAD. Recent cardiac symptoms: None. Current cardiovascular-related medications: Aspirin, atorvastatin, carvedilol. PROTOCOL: Limited low-dose CT imaging was performed for attenuation correction. 40.0 mCi of Rb-82 chloride was injected iv at rest, and gated PET (positron emission tomography) images were obtained. Subsequently, 40.0 mCi of Rb-82 chloride was injected iv at expected peak pharmacologic effect, and gated PET images were obtained. PRELIMINARY STRESS TEST DATA FROM NONINVASIVE CARDIOLOGY: [facility] stress was by 10-second iv infusion of 0.4 mg of regadenoson. Radiotracer was injected 30 seconds after start of stress. Heart rate was 90 beats/min at rest and 110 beats/min (66% of MPHR) at tracer injection. [...] LV wall motion. Gated images obtained at rest show mildly hypokinetic LV wall motion. LVEF at rest is 48%. LVEF at stress is 51%. IMPRESSION: 1. Abnormal study. 2. Appropriate pharmacologic stress. 3. Abnormal myocardial perfusion. There is a moderate severity, small size, reversible, perfusion defect in the inferoseptal LV. 4. Mildly decreased resting LV function. No deterioration of function is noted with pharmacologic stress. 5. Extracardiac tracer distribution is normal. 6. No previous [facility] study for comparison. Signed: Toya Spangler MDReport Verified Date/Time: 07/14/2018 12:29:37 Reading Location: [address] Reading Room POCT-GLUCOSE [id number] 11:42:00 Test Item Value Reference Range Interpretation Comments POC-GLUCOSE METER 166 mg/dL 70-[address] [facility] 6720 ([facility]) (test code = ELIAS [place] 1538) 487[address] CBC W/PLT COUNT & AUTO [id number] 08:21:00 Test Item Value Reference Range Interpretation Comments WHITE BLOOD CELL COUNT ([facility]) 8.8 K/ L 3.5-10.5 (test code = 775) RED BLOOD CELL COUNT ([facility]) 3.05 M/ L 4.63-6.08 L (test code = 761) HEMOGLOBIN (BEAKER) (test code = 8.6 GM/DL 13.7-17.5 L 410) HEMATOCRIT ([facility]) (test code = 27.4 % 40.1-51.0 L 411) MEAN CORPUSCULAR VOLUME (AKER) 89.8 fL 79.0-92.2 (test code = 753) MEAN CORPUSCULAR HEMOGLOBIN 28.2 pg 25.7-32.2 (AKER) (test code = 751) MEAN CORPUSCULAR HEMOGLOBIN CONC 31.4 GM/DL 32.3-36.5 L (AKER) (test code = 752) RED CELL DISTRIBUTION [...] 3438) Received comment: User comments: Slide comments:POCT-GLUCOSE [id number] 21:26:00 Test Item Value Reference Range Interpretation Comments POC-GLUCOSE METER 279 mg/dL 70-[address] [facility] 6720 (BEAKER) (test code = ELIAS [place] 1538) 324[address] MR, ABDOMEN, [id number] 19:30:00FINAL REPORT MRI of the abdomen. CLINICAL HISTORY: Abd mass, palpable, non-pulsatile. COMPARISON STUDY: CT scan dated July 12, 2018. Technique: Multiplanar, multisequence imaging of the abdomen was acquired both pre and post administration of intravenous gadolinium in a dynamic fashion. No oral contrast was administered. FINDINGS: Trace pleural effusions are seen. The liver demonstrates a noncirrhotic morphology. Significant respiratory motion artifact [...] pole of the right kidney which demonstrates postcontrastenhancement and is suspicious for renal cell carcinoma. Within the left kidney, as noted on CT scan there are vague wedge-shaped areas of increased T2-weighted signal and mild heterogeneous enhancementalthough the appearance is less pronounced. No ascites is seen. There is no suspicious adenopathy. The aorta is normal in caliber. The visualized osseous structures demonstrate degenerative changes. IMPRESSION:1. Hepatic hemangioma.2. Enhancing mass in the right kidney highly suspicious for renal cellcarcinoma.3. Study is significantly limited by extensive respiratory artifact.4. Trace pleural effusions.5. Heterogeneous areas of enhancement in the left kidney which are less pronounced than on CT scan. The differential remains unchanged and is most likely reflective of pyelonephritis or evolving infarcts. Clinical correlation is recommended. Follow-up imaging is needed to exclude other etiologies such as masses. Signed: Eleno Dawnort Verified Date/Time: 07/13/2018 19:30:45 Reading Location: [address] Consult Reading Room POCT-GLUCOSE [id number] 16:36:00 Test Item Value Reference Range Interpretation Comments POC-GLUCOSE METER 260 mg/dL 70-110 H TESTED AT [place] [address] ([facility]) (test code = [facility] Rhona [place] [address]) [address] POCT-GLUCOSE [id number] 12:41:00 Test Item Value Reference Range Interpretation Comments POC-GLUCOSE METER 284 mg/dL 70-110 H TESTED AT [place] [address] ([facility]) (test code = [facility] Rhona [place] [address]65388) [address] POCT-GLUCOSE [id number] 08:34:00 Test Item Value Reference Range Interpretation Comments POC-GLUCOSE METER 196 mg/dL 70-110 H TESTED AT [place] [address] ([facility]) (test code = ANGELONV Rhona [place] 765388) [address] POCT-GLUCOSE [id number] 21:17:00 Test Item Value Reference Range Interpretation Comments POC-GLUCOSE METER 323 mg/dL 70-110 H Patient on insulin ([facility]) (test code = Drip/T ESTED AT [place] [address]) 6720 [facility] [address] POCT-GLUCOSE [id number] 17:51:00 Test Item Value Reference Range Interpretation Comments POC-GLUCOSE METER 256 mg/dL 70-110 H TESTED AT [place] [address] (ANJALI) (test code = ELIAS [place] 1538) [address] CT, [id number] 16:00:00FINAL REPORT CT scan of the abdomen and pelvis. HISTORY: Renal cancer staging. COMPARISON STUDY: CT scan of the chest dated July 11, 2018. TECHNIQUE: Contiguous helical slices were acquired through the abdomen both pre and post ministration of intravenous contrast and through the pelvis post intravenous contrast. No oral contrast [...] The appendix has been resected. Bone windows demon strate degenerative changes. Some atrophic changes are seen in the left gluteal muscle group. Impression:1. Large enhancing right renal mass highly suspicious for renal cell carcinoma.2. Diffuse third spacing with trace effusions and anasarca.3. Indeterminate hypoattenuating lesions in the left kidneywith multiple wedge-shaped regions identified, possibly related to pyelonephritis or infarcts. Clinical correlation is recommended. Follow-up imaging is recommended to exclude masses.4. No evidence of distal metastatic disease.5. Enlarged prostate gland.6. Tiny nodule in the right lower lobe. Signed: Eleno Dawneport Verified Date/Time: 07/12/2018 16:00:46 Reading Location: [facility] C013X OrthoConsult Reading Room U/S, [id number] 14:52:00Reason for exam:->re-evaluate prostatic abscesShould this be performed at the bedside?->NoFINAL REPORT Prostate ultrasound, 07/12/2018. Comparison: 07/09/2018. Discussion: Sonographic evaluation of the prostate was performed. Capsule appears intact. The prostate measures5 x 3.5 x 5.3 cm and has a mildly heterogeneous echotexture, with several calcifications again noted. There is no focal mass or focal fluid collection. On color Doppler evaluation, there is symmetric blood flow throughout. Seminal vesicles are visualized. Impression: No prostatic fluid collection is identified Signed: Rigoberto Frausto Verified Date/Time: 07/12/2018 14:52:29 Reading Location: [facility] P006J Ultrasound Reading Room CT, CHEST, WITH [id number] 14:22:00 Addendum BeginsREPORT STATUS:A There is a hyperenhancing focus in segment II which measures 1 cm on axial image 38. This was discussed with Dr. Bueno on 07/12/2018 at 2:21 PM. Signed: Diomedes Kiser Verified Date/Time: 07/12/2018 14:22:13 Reading Location: [facility] C013Y CT BodyReading RoomAddendum EndsFINAL REPORT TECHNIQUE: CT scan of the chest WITH intravenous contrast. Dose modulation, iterative reconstruction, and/or weight-based adjustment of the mA/kV was utilized to reduce the radiation dose to as low as reasonably achievable. INDICATION: Renal cell carcinoma staging. COMPARISON: None. FINDINGS: LINES/TUBES: None. LUNGS AND AIRWAYS: A pleural-based nodule in the right upper lobe on image 18 measures 9 mm. An additional right upper lobe pulmonary nodule measures 3 mm on coronal image 69. Bibasilar subsegmental atelectasis. PLEURA: Trace bilateral pleural effusions. HEART AND MEDIASTINUM: The visualized thyroid gland is normal. No significant m ediastinal, hilar, or axillary lymphadenopathy. The left atrium [...] this would be helpful. Signed: Diomedes Kiser Verified Date/Time: 07/11/2018 09:17:12 Reading Location: [facility] B1 C013Y CT Body Reading Room POCT-GLUCOSE [id number] 14:01:00 Test Item Value Reference Range Interpretation Comments POC-GLUCOSE METER 246 mg/dL 70-110 H TESTED AT [place] [address] ([facility]) (test code = ELIAS Melgoza [place] 1538) [address] POCT-GLUCOSE [id number] 20:43:00 Test Item Value Reference Range Interpretation Comments POC-GLUCOSE METER 277 mg/dL 70-110 H TESTED AT [place] [address] ([facility]) (test code = ELIAS Melgoza [place] 1538) [address] POCT-GLUCOSE [id number] 17:05:00 Test Item Value Reference Range Interpretation Comments POC-GLUCOSE METER 283 mg/dL 70-110 H TESTED AT [place] [address] ([facility]) (test code = ANGELONE Rhona [place] 1538) [address] POCT-GLUCOSE [id number] 11:30:00 Test Item Value Reference Range Interpretation Comments POC-GLUCOSE METER 253 mg/dL 70-110 H TESTED AT [place] [address] ([facility]) (test code = ELIAS Melgoza [place] 1538) [address] POCT-GLUCOSE [id number] 07:49:00 Test Item Value Reference Range Interpretation Comments POC-GLUCOSE METER 209 mg/dL 70-110 H TESTED AT [place] [address] ([facility]) (test code = ELIAS Melgoza [place] 1538) [address] POCT-GLUCOSE [id number] 21:13:00 Test Item Value Reference Range Interpretation Comments POC-GLUCOSE METER 243 mg/dL 70-110 H TESTED AT [place] [address] ([facility]) (test code = ELIAS Melgoza [facility] 1538) 72453 URINE [id number] 15:31:00 Test Item Value Reference Range Interpretation Comments CULTURE (BEAKER) (test code = 1095) No growth POCT-GLUCOSE [id number] 12:17:00 Test Item Value Reference Range Interpretation Comments POC-GLUCOSE METER 283 mg/dL 70-110 H TESTED AT [place] [address] ([facility]) (test code = ELIAS Melgoza [facility] 1538) 612[address] BASIC METABOLIC [id number] 08:34:00 Test Item Value Reference Range Interpretation [...] 0-0 (BEAKER) (test code = 413) POCT-GLUCOSE [id number] 08:04:00 Test Item Value Reference Range Interpretation Comments POC-GLUCOSE METER 202 mg/dL 70-[address] [facility] 6720 ([facility]) (test code = ELIAS Melgoza [facility] 1538) [address] POCT-GLUCOSE [id number] 21:17:00 Test Item Value Reference Range Interpretation Comments POC-GLUCOSE METER 265 mg/dL 70-110 H TESTED AT [place] [address] ([facility]) (test code = [facility] Rhona [facility] 1538) [address] U/S, [id number] 18:00:00Please evaluate via TRUS for prostatic abscess/drainable [...] No organized/drainable fluid collection identified. Signed: Hay Dodgeeport Verified Date/Time: 07/09/2018 18:00:47 Reading Location: [facility] B1 P006J Ultrasound Reading Room POCT-GLUCOSE METER 2018-07-09 16:49:00 Test Item Value Reference Range Interpretation Comments POC-GLUCOSE METER 170 mg/dL 70-110 H TESTED AT [place] [address] (BEAKER) (test code = ELIAS Melgoza [place] 1538) [address] POCT-GLUCOSE [id number] 11:38:00 Test Item Value Reference Range Interpretation Comments POC-GLUCOSE METER 246 mg/dL 70-110 H TEST[facility] AT [place] [address] [facility] (test code = ANGELONV Rhona [facility] 1538) [address] PROTHROMBIN [id number] 11:07:00 Test Item Value Reference Range Interpretation Comments PROTIME (BEAKER) (test code = 15.7 seconds 11.7-14.7 H 759) INR (BEAKER) (test code = 370) 1.3 <=5.9 RECOMMENDED COUMADIN/WARFARIN INR THERAPY RANGESSTANDARD DOSE: 2.0 - 3.0 Includes: PROPHYLAXIS for venous thrombosis, systemic embolization; TREATMENT for venous thrombosis and/or pulmonary embolus.HIGH RISK: Target INR is 2.5-3.5 for patients with mechanical heart valves.HEMOGLOBIN [id number] 08:45:00 Test Item Value Reference Range Interpretation Comments HEMOGLOBIN A1C (BEAKER) (test code = 5.5 % 4.3-6.1 368) POCT-GLUCOSE [id number] 08:18:00 Test Item Value Reference Range Interpretation Comments POC-GLUCOSE METER 210 mg/dL 70-110 H TESTED AT [place] [address] ([facility] (test code = ANGELONV Rhona [facility] 1538) [address] URINALYSIS W/ [id number] 06:28:00 Test Item Value Reference Range Interpretation [...] code = Urine, Voided 2795) HEPATIC FUNCTION [id number] 03:40:00 Test Item Value Reference Range Interpretation [...] = 49 U/L 6-55 347) BASIC METABOLIC [id number] 03:40:00 Test Item Value Reference Range Interpretation [...] PATIEN TS. CBC W/PLT COUNT & AUTO [id number] 03:20:00 Test Item Value Reference Range Interpretation [...] % 0-1 PERCENT (BEAKER) (test code = 2809) POCT-GLUCOSE [id number] 01:26:00 Test Item Value Reference Range Interpretation Comments POC-GLUCOSE METER 202 mg/dL 70-[address] [facility] 6720 [facility] (test code = ELIAS MOELLER 1538) [address]
--- NOTE | 2022-12-08 09:58 | RAD REPORT ---
EXAM DESCRIPTION: RAD - Chest Single View - 12/08/2022 9:51 am CLINICAL HISTORY: AMS Chest pain. COMPARISON: Chest Single View dated 07/08/2018; Chest Single View dated 07/08/2018; Chest Single View dated 07/07/2018; Chest Single View dated 12/22/2017 FINDINGS: Portable technique limits examination quality. The lungs are underinflated but grossly clear. The heart is normal in size. No displaced fractures. IMPRESSION: Underinflated lungs resulting in vascular crowding.
[2022-12-08 10:05] LABS: Absolute Lymphocytes (CBC) 0.8 K/uL (0.7-4.9); Lymphocytes % 10.2 % (15.3-44.8); MCV 75.3 fL (80-100); RBC Red Blood Cell Count 3.58 M/uL (4.33-5.43)
[2022-12-08] MEDS ORDERED: NA CHLORIDE 0.9% 500 ML ONE (10:09)
[2022-12-08 10:25] LABS: Albumin 2.4 g/dL (3.4-5.0); Bilirubin Direct 0.3 mg/dL (0-0.2); Bilirubin Total 0.7 mg/dL (0.2-1.0); Magnesium 1.7 mg/dL (1.6-2.4); Protein, Total 7.4 g/dL (6.4-8.2); Troponin High Sensitivity 36.7 pg/mL (<58.9)
[2022-12-08 10:25] LABS: Arterial Blood Carboxyhemoglob 1.6 % (0-1.5); Blood Gas Oxyhemoglobin 91.5 % (94-97); Blood O2 Saturation 94.2 % (92-98.5)
--- NOTE | 2022-12-08 11:04 | RAD REPORT ---
EXAM DESCRIPTION: CT - Chest Abd Pelvis Wo Con - 12/08/2022 10:37 am CLINICAL HISTORY: Chest and abdomen pain. AMS/weakness COMPARISON: Chest Abdomen Pelvis W Cont dated 09/18/2021 TECHNIQUE: Limited noncontrast study was performed. All CT scans are performed using dose optimization technique as appropriate and may include automated exposure control or mA/KV adjustment according to patient size. FINDINGS: No pulmonary nodule or mass is identified. Mild linear atelectasis is present in both lung bases.No pleural or pericardial effusion.No intrathoracic adenopathy. Abnormal diminished density masses are present in the inferior medial right lobe of the liver, larges t measuring 4.5 cm. There is abnormal mass lesion involving the right kidney with direct extension in to the right renal vein in the inferior vena cava noted. Mild ascites is present. A bowel obstruction is not present. Poorly defined omental areas of soft tis inna prominence seen, difficult to discern due to lack of contrast in the GI tract. No lytic or blastic bone lesion. IMPRESSION: Right renal malignancy is again seen with direct extension into the right renal vein and inferior vena cava. Right hepatic lobe lesions are likely metastatic in origin although incompletely assessed due to lack contrast. Mild ascites is noted. No free air, abscess or evidence of significant bowel obstruction.
--- NOTE | 2022-12-08 11:42 | ER ---
Nurse's Notes [facility] Name: Froy Hatfield Age: 62 yrs Sex: Male : 1960 Arrival Date: 12/08/2022 Time: 09:33 Bed 4 Private MD: Diagnosis: Dehydration;Weakness;Nausea with vomiting, unspecified;Diarrhea, unspecified Presentation: 12/08 09:35 Chief complaint: EMS states: LETHARGY AND FATIGUE x3 DAYS. Coronavirus screen: At this bp time, the client does not indicate any symptoms associated with coronavirus-19. Ebola Screen: No symptoms or risks identified at this time. Initial Sepsis Screen: Does the patient meet any 2 criteria? HR > 90 bpm. No. Patient's initial sepsis screen is negative. Does the patient have a suspected source of infection? No. Patient's initial sepsis screen is negative. Risk Assessment: Do you want to hurt yourself or someone else? Patient reports no desire to harm self or others. Onset of symptoms is unknown. Care prior to arrival: IV initiated. 20 GA, in the left forearm, Glucose check: 162. 09:35 Method Of Arrival: EMS: [facility] bp 09:35 Acuity: JO 3 bp Triage Assessment: 09:37 General: Appears in no apparent distress. unkempt, Behavior is cooperative, appropriate bp for age. Pain: Denies pain. EENT: No deficits noted. Neuro: No deficits noted. Cardiovascular: Rhythm is sinus tachycardia. Respiratory: No deficits noted. GI: No signs and/or symptoms were reported involving the gastrointestinal system. : No signs and/or symptoms were reported regarding the genitourinary system. Derm: No deficits noted. Musculoskeletal: No deficits noted. Historical: - Allergies: 09:37 Dairy; bp - PMHx: 09:37 CVA; Left sided deficits; Hypercholesterolemia; Diabetes - IDDM; kidney CA; with mets bp to liver; Hypertension; LIVER CA; - PSHx: 09:37 partial nephrectomy on right; bp - Immunization history:: Adult Immunizations up to date. - Social history:: Smoking status: Patient denies any tobacco usage or history of. Screenin:39 [facility] ED Fall Risk Assessment (Adult) History of falling in the last 3 months, bp including since admission No falls in past 3 months (0 pts). Abuse screen: Denies threats or abuse. Denies injuries from another. Nutritional screening: No deficits noted. Tuberculosis screening: No symptoms or risk factors identified. Assessment: 09:39 General: SEE TRIAGE NOTE. bp 11:30 Reassessment: No changes from previously documented assessment. Patient is alert, bp oriented x 3, equal unlabored respirations, skin warm/dry/pink. 12:00 Reassessment: ADMIT INITIATED. bp Vital Signs: 09:35 BP 110 / 70; Pulse 120; Resp 20; Temp 99.2; Pulse Ox 97% ; bp 10:00 BP 98 / 87; Pulse 126; Resp 21; Pulse Ox 97% ; bp 11:00 BP 98 / 73; Pulse 120; Resp 21; Pulse Ox 97% ; bp 12:00 BP 83 / 53; Pulse 108; Resp 20; Pulse Ox 99% ; bp ED Course: 09:35 Patient arrived in ED. bp 09:35 Andriy Marie MD is Attending Physician. kdr 09:36 Triage completed. bp 09:39 Arm band placed on. bp 09:39 Patient has correct armband on for positive identification. Bed in low position. Call bp light in reach. Side rails up X2. 09:39 Maintain EMS IV. Dressing intact. Good blood return noted. Site clean \T\ dry. Gauge \T\ bp site: 20 GA LEFT FA. 09:40 Oracio Young, LORENA is Primary Nurse. bp 09:52 XRAY Chest (1 view) In Process Unspecified. EDMS 10:04 Initial lab(s) drawn, by me, sent to lab. em1 10:26 EKG done, by ED staff, reviewed by Andriy Marie MD. em1 10:39 Chest Abd Pelvis Wo Con In Process Unspecified. EDMS 11:40 Serjio Bolaños MD is Hospitalizing Provider. kdr 12:25 No provider procedures requiring assistance completed. Patient admitted, IV remains in bp place. Administered Medications: 10:05 Drug: NS 0.9% IV 500 ml Route: IV; Rate: bolus; Site: left antecubital; nj1 12:48 Follow up: IV Status: Completed infusion; IV Intake: 500ml bp Medication: 09:39 VIS not applicable for this client. bp Intake: 12:48 IV: 500ml; Total: 500ml. bp Outcome: 11:42 Decision to Hospitalize by Provider. kdr 12:30 Admitted to Med/surg accompanied by tech, via stretcher, room 406, with chart, Report bp called to JEFFREY CARRILLO 12:30 Condition: stable 12:30 Instructed on the need for admit. 13:40 Patient left the ED. em1 Signatures: Dispatcher [employer] EDMS Andriy Marie MD MD kdr Albaro Santoyo em1 Oracio Young RN RN bp Hannah George RN RN nj1
--- NOTE | 2022-12-08 11:42 | EDPHYS ---
Physician Documentation [facility] Name: Froy Hatfield Age: 62 yrs Sex: Male : 1960 Arrival Date: 12/08/2022 Time: 09:33 Bed 4 Private MD: ED Physician Andriy Marie HPI: 12/08 11:21 This 62 yrs old Black Male presents to ER via EMS with complaints of LETHARGY, FATIGUE. kdr 11:21 The patient presents with 3 days of increasing lethargy and fatigue. Denies any focal kdr deficits. He has had some nausea vomiting and diarrhea. He generally feels weak. Patient has a history of renal carcinoma with metastasis to the liver.. Onset: The symptoms/episode began/occurred gradually, 3 day(s) ago. Severity of symptoms: At their worst the symptoms were moderate in the emergency department the symptoms are unchanged. The patient has not experienced similar symptoms in the past. The patient has not recently seen a physician. Historical: - Allergies: 09:37 Dairy; bp - PMHx: 09:37 CVA; Left sided deficits; Hypercholesterolemia; Diabetes - IDDM; kidney CA; with mets bp to liver; Hypertension; LIVER CA; - PSHx: 09:37 partial nephrectomy on right; bp - Immunization history:: Adult Immunizations up to date. - Social history:: Smoking status: Patient denies any tobacco usage or history of. ROS: 11:21 Constitutional: Negative for fever, chills, and weight loss, Eyes: Negative for injury, kdr pain, redness, and discharge, Neck: Negative for injury, pain, and swelling, Cardiovascular: Negative for chest pain, palpitations, and edema, Respiratory: Negative for shortness of breath, cough, wheezing, and pleuritic chest pain, Back: Negative for injury and pain, : Negative for injury, bleeding, discharge, and swelling, MS/Extremity: Negative for injury and deformity, Skin: Negative for injury, rash, and discoloration, Psych: Negative for depression, anxiety, suicide ideation, homicidal ideation, and hallucinations, Allergy/Immunology: Negative for hives, rash, and allergies, Endocrine: Negative for neck swelling, polydipsia, polyuria, polyphagia, and marked weight changes, Hematologic/Lymphatic: Negative for swollen nodes, abnormal bleeding, and unusual bruising. 11:21 Abdomen/GI: Positive for abdominal pain, nausea, vomiting, and diarrhea, abdominal distension, Negative for black/tarry stool, rectal pain, rectal bleeding. 11:21 Neuro: Positive for altered mental status, weakness. Exam: 11:21 Constitutional: This is a well developed, well nourished patient who is awake, alert, kdr and in mild to moderate distress. Head/Face: Normocephalic, atraumatic. Eyes: Pupils equal round and reactive to light, extra-ocular motions intact. Lids and lashes normal. Conjunctiva and sclera are non-icteric and not injected. Cornea within normal limits. Periorbital areas with no swelling, redness, or edema. Neck: Trachea midline, no thyromegaly or masses palpated, and no cervical lymphadenopathy. Supple, full range of motion without nuchal rigidity, or vertebral point tenderness. No Meningismus. Chest/axilla: Normal chest wall appearance and motion. Nontender with no deformity. No lesions are appreciated. Cardiovascular: Regular rate and rhythm with a normal S1 and S2. No gallops, murmurs, or rubs. Normal PMI, no JVD. No pulse deficits. Respiratory: Lungs have equal breath sounds bilaterally, clear to auscultation and percussion. No rales, rhonchi or wheezes noted. No increased work of breathing, no retractions or nasal flaring. Back: No spinal tenderness. No costovertebral tenderness. Full range of motion. Skin: Warm, dry with normal turgor. Normal color with no rashes, no lesions, and no evidence of cellulitis. MS/ Extremity: Pulses equal, no cyanosis. Neurovascular intact. Full, normal range of motion. Neuro: Awake and alert, GCS 15, oriented to person, place, time, and situation. Cranial nerves II-XII grossly intact. Motor strength 5/5 in all extremities. Sensory grossly intact. Cerebellar exam normal. Normal gait. Psych: Awake, alert, with orientation to person, place and time. Behavior, mood, and affect are within normal limits. 11:21 Abdomen/GI: Inspection: distension, Bowel sounds: diminished, in all quadrants, Palpation: mild abdominal tenderness, in the epigastric area, mass, rebound tenderness, is not appreciated. Vital Signs: 09:35 BP 110 / 70; Pulse 120; Resp 20; Temp 99.2; Pulse Ox 97% ; bp 10:00 BP 98 / 87; Pulse 126; Resp 21; Pulse Ox 97% ; bp 11:00 BP 98 / 73; Pulse 120; Resp 21; Pulse Ox 97% ; bp 12:00 BP 83 / 53; Pulse 108; Resp 20; Pulse Ox 99% ; bp MDM: 11:21 Data reviewed: vital signs, nurses notes, lab test result(s), radiologic studies. kdr 11:42 Patient medically screened. kdr 12/08 09:36 Order name: Basic Metabolic Panel; Complete Time: 10:52 kdr 12/08 09:36 Order name: CBC with Diff; Complete Time: 10:52 kdr 12/08 09:36 Order name: LFT's; Complete Time: 10:52 kdr 12/08 09:36 Order name: Magnesium; Complete Time: 10:52 kdr 12/08 09:36 Order name: NT PRO-BNP; Complete Time: 10:52 kdr 12/08 09:36 Order name: Troponin HS; Complete Time: 10:52 kdr 12/08 09:43 Order name: ABG; Complete Time: 10:52 kdr 12/08 09:43 Order name: AMMONIA; Complete Time: 10:52 kdr 12/08 11:48 Order name: Basic Metabolic Panel EDMS 12/08 11:48 Order name: Basic Metabolic Panel EDMS 12/08 11:48 Order name: CBC with Automated Diff EDMS 12/08 11:48 Order name: CBC with Automated Diff EDMS 12/08 13:32 Order name: Glucose, Ancillary Testing EDMS 12/08 09:36 Order name: XRAY Chest (1 view); Complete Time: 10:52 kdr 12/08 10:36 Order name: Chest Abd Pelvis Wo Con; Complete Time: 11:32 EDMS 12/08 09:36 Order name: EKG; Complete Time: 09:37 kdr 12/08 11:48 Order name: Regular EDMS 12/08 09:36 Order name: Cardiac monitoring; Complete Time: 09:41 kdr 12/08 09:36 Order name: EKG - Nurse/Tech; Complete Time: 09:59 kdr 12/08 09:36 Order name: IV Saline Lock; Complete Time: 10:46 kdr 12/08 09:36 Order name: Labs collected and sent; Complete Time: 09:59 kdr 12/08 09:36 Order name: O2 Per Protocol; Complete Time: 09:40 kdr 12/08 09:36 Order name: O2 Sat Monitoring; Complete Time: 09:40 kdr Administered Medications: 10:05 Drug: NS 0.9% IV 500 ml Route: IV; Rate: bolus; Site: left antecubital; nj1 12:48 Follow up: IV Status: Completed infusion; IV Intake: 500ml bp Disposition Summary: 12/08/22 11:42 Hospitalization Ordered Hospitalization Status: Inpatient Admission kdr Provider: Serjio Bolaños Location: Telemetry/MedSurg (Inpatient) kdr Condition: Fair kdr Problem: an ongoing problem kdr Symptoms: have worsened kdr Bed/Room Type: Standard [facility] Room Assignment: 406(12/08/22 11:59) Diagnosis - Dehydration kdr - Weakness kdr - Nausea with vomiting, unspecified kdr - Diarrhea, unspecified kdr Forms: - Medication Reconciliation Form kdr - SBAR form kdr Signatures: Dispatcher [employer] EDNV Krista Nicole RN RN dw Andriy Marie MD MD kdr Oracio Young RN RN bp Hannah George, LORENA RN nj1 Corrections: (The following items were deleted from the chart) 10:36 09:43 Chest Abdomen Pelvis W Con+CT.RAD.BRZ ordered. EDNV EDNV 11:59 11:42 kdr dw
[2022-12-08] MEDS ORDERED: D5 0.45 NS 1,000 ML IV SCH (12:00)
--- NOTE | 2022-12-08 14:44 | P.HP ---
Certification for Inpatient Patient admitted to: Inpatient With expected LOS: >2 Midnights Practitioner: I am a practitioner with admitting privileges, knowledge of patient current condition, hospital course, and medical plan of care. Services: Services provided to patient in accordance with Admission requirements found in Title 42 Section 412.3 of the Code of Federal Regulations Patient History Date of Service: 12/08/22 Primary Care Provider: phan Reason for admission: acute renal failure History of Present Illness: Patient of mine with a history of diabetes and renal cell cancer. He has been feeling weak for the last few weeks. Came to the ER Was found to have extension into his cancer and a very elevated creatine of 3.8. His creatine th is past May. was 1.09. The patient seems to not be eating well. Which can be sign of renal dysfunction. Will admit him and see if we can get records from his oncologist. Allergies No Known Allergies Allergy (Verified 12/23/17 00:36) Home Medications: lisinopriL [Prinivil*] 40 mg PO DAILY 11/03/16 Amlodipine Besylate 1 tab PO DAILY 07/07/18 Atorvastatin Calcium [Lipitor] 40 mg PO BEDTIME 07/07/18 Cabozantinib S-Malate [Cabometyx] 40 mg PO DAILY 03/19/21 Carvedilol [Coreg] 1 tab PO BID 03/19/21 Omeprazole [Prilosec] 40 mg PO DAILY 03/19/21 Sitagliptin Phosphate [Januvia] 50 mg PO DAILY 03/19/21 Apixaban [Eliquis] 5 mg PO BID 09/16/21 Loperamide [Imodium*] 30 ml PO DAILY 09/16/21 Magnesium Chloride [Slow-Mag*] 128 mg PO BID #120 tab 09/20/21 - Past Medical/Surgical History Diabetic: Yes -: HTN -: CVA w/ L sided defecits -: Diabetes -: HLD -: Renal cancer w/ liver mets -: Cataracts -: Partial nephrectomy. Psychosocial/ Personal History: Patient lives at home with his sister - Family History Mother -: Hypertension, Diabetes Father -: Hypertension, Diabetes Sister -: Cancer Brother -: Cancer - Social History Alcohol use: No CD- Drugs: No Caffeine use: Yes Review of Systems 10-point ROS is otherwise unremarkable General: Weakness, Malaise Physical Examination - Vital Signs Temperature: 97.5 F Blood Pressure: 99/75 Pulse: 117 Respirations: 16 Pulse Ox (%): 90 - Physical Exam General: Alert, In no apparent distress HEENT: Atraumatic, PERRLA, Mucous membr. moist/pink, EOMI, Sclerae nonicteric Neck: Supple, 2+ carotid pulse no bruit, No LAD, Without JVD or thyroid abnormality Respiratory: Clear to auscultation bilaterally, Normal air movement Cardiovascular: Regular rate/rhythm, Normal S1 S2 Gastrointestinal: Normal bowel sounds, No tenderness Musculoskeletal: No tenderness Integumentary: No rashes Neurological: Normal gait, Normal speech, Normal strength at 5/5 x4 extr, Normal tone, Normal affect Lymphatics: No axilla or inguinal lymphadenopathy - Studies Laboratory Data (last 24 hrs) 12/08/22 09:55: WBC 8.10, Hgb 8.7 L, Hct 27.0 L, Plt Count 465 H 12/08/22 09:55: Sodium 134 L, Potassium 4.0, BUN 44 H, Creatinine 3.83 H, Glucose 161 H, Magnesium 1.7, Total Bilirubin 0.7, AST 37, ALT 15 L, Alkaline Phosphatase 66 Assessment and Plan - Problems (Diagnosis) (1) Acute renal failure Current Visit: Yes Status: Acute Plan: will start him on fluids. Consult to Dr. Shah. Will continue to monitor his creatine. Hold acei. Qualifiers: Acute renal failure type: unspecified Qualified Code(s): N17.9 - Acute kidney failure, unspecified (2) Renal cell carcinoma Current Visit: No Status: Acute Plan: He is on an oral chemo agent. Will need to contact his Oncologist. Dr. Ishaan Pruett. asked the family to get his office number. Will try contacting him for the treatment plan Qualifiers: Laterality: right Qualified Code(s): C64.1 - Malignant neoplasm of right kidney, except renal pelvis (3) Diabetes Onset Date: 12/23/17 Current Visit: No Status: Chronic Plan: will start him on an insulin sliding scale. 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 Will continue the amlodipine Qualifiers: Hypertension type: primary hypertension Qualified Code(s): I10 - Essential (primary) hypertension Discharge Plan: Home Plan to discharge in: Greater than 2 days - Advance Directives Does patient have a Living Will: No Does patient have a Durable POA for Healthcare: Yes - Code Status/Comfort Care Code Status Assessed: Yes Code Status: Full Code Physician Review: Patient Assessed, Agree with Above Assessment and Plan Critical Care: No Time Spent Managing Pts Care (In Minutes): 45
[2022-12-08] MEDS ORDERED: D50W 25 GM/50 ML SYRINGE IV PRN (14:56)
[2022-12-08] MEDS ORDERED: HYDRALAZINE HCL 20 MG/ML VIAL IV PRN (14:56)
[2022-12-08] MEDS ORDERED: GLUCAGON 1 MG/VIAL IM PRN (14:56)
[2022-12-08] MEDS: NA CHLORIDE 0.9% 1,000 ML IV SCH (15:05)
[2022-12-08 15:07] VITALS: BMI 33.4
[2022-12-08] MEDS: INSULIN -REGULAR HUMAN 50 UNIT/0.5 ML ML SQ SCH ×2 (16:30→21:00)
[2022-12-08] MEDS ORDERED: ATORVASTATIN 40 MG TAB PO SCH (21:00)
[2022-12-08] MEDS ORDERED: HOME MED 1 EA UNK (Apixaban [Eliquis] 5 MG Tab.Ds.Pk) PO SCH (21:00)
[2022-12-08] MEDS: APIXABAN 5 MG TABLET PO SCH (21:00)
--- NOTE | 2022-12-08 21:11 | P.CNS ---
Date of Consult: 12/08/22 Reason for Consult: LO Requesting Physician: Serjio Bolaños Primary Care Provider: Dr. Bolaños Chief Complaint: LO History of Present Illness: 62 yo BM DM presented to the ER with 3 days of moderate, progressive lethargy with associated fatigue and weakness. 11:21 This 62 yrs old Black Male presents to ER via EMS with complaints of LETHARGY, FATIGUE. kdr 11:21 The patient presents with 3 days of increasing lethargy and fatigue. Denies any focal kdr deficits. He has had some nausea vomiting and diarrhea. He generally feels weak. Patient has a history of renal carcinoma with metastasis to the liver.. Onset: The symptoms/episode began/occurred gradually, 3 day(s) ago. Severity of symptoms: At their worst the symptoms were moderate in the emergency department the symptoms are unchanged. The patient has not experienced similar symptoms in the past. The patient has not recently seen a physician. [facility] Chief complaint: EMS states: LETHARGY AND FATIGUE x3 DAYS. Allergies No Known Allergies Allergy (Verified 12/23/17 00:36) Home medications list reviewed: Yes Home Medications: lisinopriL [Prinivil*] 40 mg PO DAILY 11/03/16 Amlodipine Besylate 1 tab PO DAILY 07/07/18 Atorvastatin Calcium [Lipitor] 40 mg PO BEDTIME 07/07/18 Apixaban [Eliquis] 5 mg PO BID 09/16/21 Aspirin [Aspirin EC 81 MG] 81 mg PO DAILY 12/08/22 Gabapentin 200 mg PO TID 12/08/22 Metoclopramide HCl [Reglan] 10 mg PO TID 12/08/22 Montelukast [Singulair*] 10 mg PO DAILY 12/08/22 Sitagliptin Phosphate [Januvia] 50 mg PO DAILY 12/08/22 - Past Medical/Surgical History Diabetic: Yes -: HTN -: CVA w/ L sided defecits -: DM II -: HLD -: Renal cancer w/ liver mets -: Cataracts -: Partial nephrectomy. Psychosocial/ Personal History: Patient lives at home with his sister - Family History Mother Medical History: Hypertension, Diabetes Father Medical History: Hypertension, Diabetes Sister Medical History: Cancer Brother Medical History: Cancer - Social History Smoking Status: Unknown if ever smoked Alcohol use: No CD- Drugs: No Caffeine use: Yes Place of Residence: Home Review of Systems 10-point ROS is otherwise unremarkable General: Weakness, Malaise Respiratory: SOB with Excertion Cardiovascular: Edema Physical Examination Temp Pulse Resp BP Pulse Ox 97.6 F 120 H 16 122/90 90 L 12/08/22 16:00 12/08/22 16:00 12/08/22 16:00 12/08/22 16:00 12/08/22 16:00 General: In no apparent distress, Cooperative HEENT: Atraumatic Neck: Supple Cardiovascular: Regular rate/rhythm, Edema Gastrointestinal: No guarding, Distended Musculoskeletal: No clubbing, No contractures Integumentary: No rashes, No cyanosis Neurological: Normal speech Laboratory Data (last 24 hrs) 12/08/22 09:55: WBC 8.10, Hgb 8.7 L, Hct 27.0 L, Plt Count 465 H 12/08/22 09:55: Sodium 134 L, Potassium 4.0, BUN 44 H, Creatinine 3.83 H, Glucose 161 H, Magnesium 1.7, Total Bilirubin 0.7, AST 37, ALT 15 L, Alkaline Phosphatase 66 Imagings Data: [facility] EXAM DESCRIPTION: CT - Chest Abd Pelvis Wo Con - 12/08/2022 10:37 am CLINICAL HISTORY: Chest and abdomen pain. AMS/weakness COMPARISON: Chest Abdomen Pelvis W Cont dated 09/18/2021 TECHNIQUE: Limited noncontrast study was performed. All CT scans are performed using dose optimization technique as appropriate and may include automated exposure control or mA/KV adjustment according to patient size. FINDINGS: No pulmonary nodule or mass is identified. Mild linear atelectasis is present in both lung bases.No pleural or pericardial effusion.No intrathoracic adenopathy. Abnormal diminished density masses are present in the inferior medial right lobe of the liver, largest measuring 4.5 cm. There is abnormal mass lesion involving the right kidney with direct extension into the right renal vein in the inferior vena cava noted. Mild ascites is present. A bowel obstruction is not present. Poorly defined omental areas of soft tissue prominence seen, difficult to discern due to lack of contrast in the GI tract. No lytic or blastic bone lesion. IMPRESSION: Right renal malignancy is again seen with direct extension into the right renal vein and inferior vena cava. Right hepatic lobe lesions are likely metastatic in origin although incompletely assessed due to lack contrast. Mild ascites is noted. No free air, abscess or evidence of significant bowel obstruction. [facility] EXAM DESCRIPTION: RAD - Chest Single View - 12/08/2022 9:51 am CLINICAL HISTORY: AMS Chest pain. COMPARISON: Chest Single View dated 07/08/2018; Chest Single View dated 07/08/2018; Chest Single View dated 07/07/2018; Chest Single View dated 12/22/2017 FINDINGS: Portable technique limits examination quality. The lungs are underinflated but grossly clear. The heart is normal in size. No displaced fractures. IMPRESSION: Underinflated lungs resulting in vascular crowding. Conclusions/Impression: Stage III LO may be multi-factorial including hypotension possibly complicated by ATN, malignant infiltration, cabozantinib Proteinuria? -No NSAIDs -Continue IVF with NS Hyponatremia -Continue IVF with NS HTN complicated by hypotension -Discontinue Amlodipine -Hold Lisinopril DM II with CKD -Continue Alogliptan -RISS Moderate Malnutrition/ Hypoalbuminemia Debility/ Weakness -Start Nepro -PT as tolerated Anemia in chronic illness Microcytosis -Monitor H&H -Check iron status Right RCC with liver mets -Continue cabozantinib Case reviewed with Dr. Bolaños Thank you kindly for the consultation
[2022-12-08] MEDS: ACETAMINOPHEN 500 MG TAB PO PRN (22:39)
[2022-12-09] MEDS: NA CHLORIDE 0.9% 1,000 ML IV SCH ×2 (01:00→10:23)
[2022-12-09 06:41] LABS: Absolute Lymphocytes (CBC) 1.2 K/uL (0.7-4.9); Hematocrit 23.9 % (39.6-49.0); MCV 75.2 fL (80-100); MPV 7.2 fL (7.6-11.3); RBC Red Blood Cell Count 3.18 M/uL (4.33-5.43)
[2022-12-09 06:47] LABS: Phosphorus 4.8 mg/dL (2.5-4.9); Potassium 4.2 mEq/L (3.5-5.1); Uric Acid 12.4 mg/dL (3.5-7.2)
[2022-12-09] MEDS: INSULIN -REGULAR HUMAN 50 UNIT/0.5 ML ML SQ SCH ×4 (07:30→20:47)
--- NOTE | 2022-12-09 07:53 | EKG ---
Test Date: 2022-12-08 Test Time: 10:23:45 Research Associate Molecular Biology: DEANNE MEASUREMENT RESULTS: Intervals: Rate: 118 NJ: 124 QRSD: 102 QT: 318 QTc: 445 Lamar: P: 60 NJ: 124 QRS: 34 T: 134 INTERPRETIVE STATEMENTS: Sinus tachycardia T wave abnormality, consider inferior ischemia Abnormal ECG Compared to ECG 05/14/2022 10:11:49 T-wave abnormality now present Possible ischemia now present Sinus rhythm no longer present Myocardial infarct finding no longer present Electronically Signed On 12-09-22 07:52:40 CDT by Connor Rivera
--- NOTE | 2022-12-09 08:16 | P.PN ---
Subjective Date of Service: 12/09/22 Primary Care Provider: Dr. Bolaños Chief Complaint: LO Subjective: No new changes, No C/O voiced, Tolerating diet, Ambulating, Improving, New changes (belly distended, creatine worsening) Review of Systems 10-point ROS is otherwise unremarkable Gastrointestinal: Abdominal Pain, Distention Physical Examination - Vital Signs Temperature: 98.1 F Blood Pressure: 88/65 Pulse: 117 Respirations: 15 Pulse Ox (%): 95 - Physical Exam General: Alert, In no apparent distress HEENT: Atraumatic, PERRLA, EOMI Neck: Supple, JVD not distended Respiratory: Clear to auscultation bilaterally, Normal air movement Cardiovascular: Regular rate/rhythm, Normal S1 S2 Gastrointestinal: Normal bowel sounds, No tenderness Musculoskeletal: No tenderness Integumentary: No rashes Neurological: Normal speech, Normal tone, Normal affect Lymphatics: No axilla or inguinal lymphadenopathy - Studies Laboratory Data (last 24 hrs) 12/08/22 09:55: WBC 8.10, Hgb 8.7 L, Hct 27.0 L, Plt Count 465 H 12/08/22 09:55: Sodium 134 L, Potassium 4.0, BUN 44 H, Creatinine 3.83 H, Glucose 161 H, Magnesium 1.7, Total Bilirubin 0.7, AST 37, ALT 15 L, Alkaline Phosphatase 66 Assessment And Plan - Current Problems (Diagnosis) (1) Acute renal failure Current Visit: Yes Status: Acute Plan: will start him on fluids. Consult to Dr. Shah. Will continue to monitor his creatine. Hold acei. .[address] juarez. If no relief for the abdominal distention. Will start the patient on NG tube with suction. Qualifiers: Acute renal failure type: unspecified Qualified Code(s): N17.9 - Acute kidney failure, unspecified (2) Renal cell carcinoma Current Visit: No Status: Acute Plan: He is on an oral chemo agent. Will need to contact his Oncologist. Dr. Ishaan Pruett. asked the family to get his office number. Will try contacting him for the treatment plan 12/[address] Cross. He has been dealing with this cancer for 2 years. Was stage 4 on diagnosis. He is on the last round of chemotherapy. Poor prognosis. Dr. Cross felt he may have a year left. Discussed his poor prognosis with the patient. He is aware. Qualifiers: Laterality: right Qualified Code(s): C64.1 - Malignant neoplasm of right kidney, except renal pelvis (3) Diabetes Onset Date: 12/23/17 Current Visit: No Status: Chronic Plan: will start him on an insulin sliding scale. 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 Will continue the amlodipine Qualifiers: Hypertension type: primary hypertension Qualified Code(s): I10 - Essential (primary) hypertension Discharge Plan: Home Plan to discharge in: Greater than 2 days - Code Status/Comfort Care Code Status Assessed: No Physician Review: Patient Assessed, Agree with Above Assessment and Plan Critical Care: No Time Spent Managing PTS Care (In Minutes): 30
[2022-12-09] MEDS ORDERED: CABOZANTINIB S MALATE 40 MG PO SCH (09:00)
[2022-12-09] MEDS ORDERED: PANTOPRAZOLE 40MG TABLET PO SCH (09:00)
[2022-12-09] MEDS ORDERED: HOME MED 1 EA UNK (Sitagliptin Phosphate [Januvia] 50 MG Tablet) PO SCH ×2 (09:00)
[2022-12-09] MEDS ORDERED: AMLODIPINE 10 MG TAB PO SCH (09:00)
[2022-12-09] MEDS ORDERED: MONTELUKAST 10 MG TAB PO SCH (09:00)
[2022-12-09] MEDS ORDERED: HOME MED 1 EA UNK (Omeprazole [Prilosec] 40 MG Capsule.Dr) PO SCH (09:00)
[2022-12-09] MEDS ORDERED: ALOGLIPTIN BENZOATE 12.5 MG TABLET PO SCH (09:00)
[2022-12-09] MEDS: APIXABAN 5 MG TABLET PO SCH (09:26)
[2022-12-09] MEDS: NEPRO SHAKE 237 ML CAN PO SCH ×2 (09:27→14:00)
--- NOTE | 2022-12-09 12:21 | RAD REPORT ---
EXAM DESCRIPTION: RAD - Abdomen Single View - 12/09/2022 11:00 am CLINICAL HISTORY: abdominal distention Pain COMPARISON: Abdomen Pelvis W Contrast dated 07/07/2018 FINDINGS: There is diffuse gaseous distention of the large and small bowel present in a non organize d pattern. This is most compatible with diffuse ileus. No suspicious calcifications. No significant bony findings. No pneumoperitoneum seen. Hazy opacities in the left base probably represent atelectasis. IMPRESSION: Moderate diffuse adynamic ileus.
--- NOTE | 2022-12-09 12:44 | RAD REPORT ---
EXAM DESCRIPTION: RAD - Abdomen 1 View (KUB) - 12/09/2022 12:28 pm CLINICAL HISTORY: Device placement Dobhoff tube placement FINDINGS: The tip of a nasogastric tube lies 9 centimeters from the GE junction in the gastric fund us.
--- NOTE | 2022-12-09 17:35 | P.PN ---
Date of Service: 12/09/22 Vital Signs Temp Pulse Resp BP Pulse Ox 97.8 F 131 H 18 138/78 92 12/09/22 16:00 12/09/22 16:00 12/09/22 16:00 12/09/22 16:00 12/09/22 16:00 Medications Acetaminophen (Acetaminophen 500 Mg Tab) 500 mg PO Q6H PRN PRN Reason: Temp greater than 101.0 Last Admin: 12/08/22 22:39 Dose: 500 mg Apixaban (Apixaban 5 Mg Tablet) 5 mg PO BID [facility] Last Admin: 12/09/22 09:26 Dose: 5 mg Atorvastatin Calcium (Atorvastatin 40 Mg Tab) 40 mg PO BEDTIME [facility] Last Admin: 12/08/22 21:01 Dose: 40 mg Dextrose (D50w 25 Gm/50 Ml Syringe) 125 gm IV PRN PRN; Protocol PRN Reason: HYPOGLYCEMIA Emollient Gel (Medihoney 44 Ml Topical Tube) 1 appl TOP DAILY [facility] Enteral Nutritional Formula (Nepro Shake 237 Ml Can) 237 ml PO TID [facility] Last Admin: 12/09/22 14:00 Dose: Not Given Glucagon (Glucagon 1 Mg/Vial) 1 mg IM 1X PRN; Protocol PRN Reason: HYPOGLYCEMIA Hydralazine HCl (Hydralazine Hcl 20 Mg/Ml Vial) 10 mg IV Q6HP PRN PRN Reason: FOR SBP>160 OR DBP>100 MMHG Sodium Chloride (Ns 1000 Ml Ivbag) 1,000 mls @ 100 mls/hr IV .Q10H [facility] Last Admin: 12/09/22 10:23 Dose: 1,000 mls Insulin Human Regular (Insulin -Regular Human 50 Unit/0.5 Ml Ml) 0 unit SQ ACHS [facility]; Protocol Last Admin: 12/09/22 15:50 Dose: Not Given Montelukast Sodium (Montelukast 10 Mg Tab) 10 mg PO DAILY [facility] Last Admin: 12/09/22 09:26 Dose: 10 mg Ondansetron HCl (Ondansetron 4 Mg/2 Ml Vial) 4 mg IV Q4H PRN PRN Reason: NAUSEA / VOMITING Pantoprazole Sodium (Pantoprazole 40mg Tablet) 40 mg PO DAILY [facility] Last Admin: 12/09/22 09:26 Dose: 40 mg Sodium Chloride (Flush Normal Saline 10 Ml) 10 ml IV BID [facility] Last Admin: 12/09/22 09:00 Dose: Not Given Assessment/ Plan: Nephrology No dyspnea No chest pain Weakness and fatigue Worsening abd distention No acute events overnight Vitals, medications, blood work and imaging reviewed in the chart. General: In no apparent distress, Cooperative HEENT: Atraumatic Neck: Supple Cardiovascular: Regular rate/rhythm, Edema Gastrointestinal: No guarding, Distended/ Firm Musculoskeletal: No clubbing, No contractures Integumentary: No rashes, No cyanosis Neurological: Normal speech Laboratory Data (last 24 hrs) 12/08/22 09:55: WBC 8.10, Hgb 8.7 L, Hct 27.0 L, Plt Count 465 H 12/08/22 09:55: Sodium 134 L, Potassium 4.0, BUN 44 H, Creatinine 3.83 H, Glucose 161 H, Magnesium 1.7, Total Bilirubin 0.7, AST 37, ALT 15 L, Alkaline Phosphatase 66 Imagings Data: EXAM DESCRIPTION: CT - Chest Abd Pelvis Wo Con - 12/08/2022 10:37 am CLINICAL HISTORY: Chest and abdomen pain. AMS/weakness COMPARISON: Chest Abdomen Pelvis W Cont dated 09/18/2021 TECHNIQUE: Limited noncontrast study was performed. All CT scans are performed using dose optimization technique as appropriate and may include automated exposure control or mA/KV adjustment according to patient size. FINDINGS: No pulmonary nodule or mass is identified. Mild linear atelectasis is present in both lung bases.No pleural or pericardial effusion.No intrathoracic adenopathy. Abnormal diminished density masses are present in the inferior medial right lobe of the liver, largest measuring 4.5 cm. There is abnormal mass lesion involving the right kidney with direct extension into the right renal vein in the inferior vena cava noted. Mild ascites is present. A bowel obstruction is not present. Poorly defined omental areas of soft tissue prominence seen, difficult to discern due to lack of contrast in the GI tract. No lytic or blastic bone lesion. IMPRESSION: Right renal malignancy is again seen with direct extension into the right renal vein and inferior vena cava. Right hepatic lobe lesions are likely metastatic in origin although incompletely assessed due to lack contrast. Mild ascites is noted. No free air, abscess or evidence of significant bowel obstruction. EXAM DESCRIPTION: RAD - Chest Single View - 12/08/2022 9:51 am CLINICAL HISTORY: AMS Chest pain. COMPARISON: Chest Single View dated 07/08/2018; Chest Single View dated 07/08/2018; Chest Single View dated 07/07/2018; Chest Single View dated 12/22/2017 FINDINGS: Portable technique limits examination quality. The lungs are underinflated but grossly clear. The heart is normal in size. No displaced fractures. IMPRESSION: Underinflated lungs resulting in vascular crowding. Conclusions/Impression: Stage III LO may be multi-factorial including hypotension possibly complicated by ATN, obstructive uropathy, malignant infiltration, cabozantinib Proteinuria? -No NSAIDs -Continue IVF with NS -Agree with juarez insertion, urology to evaluate for possible obstruction -Urine studies pending Hyponatremia -Continue IVF NAG Metabolic Acidosis -Change IVF to IV bicarb Hyperuricemia -Continue IVF HTN complicated by hypotension -Hold Lisinopril and Amlodipine -Continue IVF/ IVF bolus as needed -Blood Cx X2 DM II with CKD -Discontinue Alogliptan -RISS Moderate Malnutrition/ Hypoalbuminemia Debility/ Weakness -NPO at this time Anemia in chronic illness Iron Deficiency 8% -Monitor H&H -Consider IV iron Diffuse Adynamic Ileus Abd Distention -Agree with NGT/ Intermittent Suction -NPO Right RCC with liver mets -Hold cabozantinib at this time Case reviewed with Dr. Bolaños
--- NOTE | 2022-12-09 18:41 | P.CNS ---
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 He had signs of acute kidney injury, and attempts were made to place a urethral Moncada catheter. While the catheter was passed successfully, because of minimal to no urine output, concern existed as to the appropriate catheter placement. Hence urology consultation was requested. CT - Chest Abd Pelvis Wo Con - 12/08/2022 10:37 am FINDINGS: No pulmonary nodule or mass is identified. Mild linear atelectasis is present in both lung bases.No pleural or pericardial effusion.No intrathoracic adenopathy. Abnormal diminished density masses are present in the inferior medial right lobe of the liver, largest measuring 4.5 cm. There is abnormal mass lesion involving the right kidney with direct extension into the right renal vein in the inferior vena cava noted. Mild ascites is present. A bowel obstruction is not present. Poorly defined omental areas of soft tissue prominence seen, difficult to discern due to lack of contrast in the GI tract. No lytic or blastic bone lesion. IMPRESSION: Right renal malignancy is again seen with direct extension into the right renal vein and inferior vena cava. Right hepatic lobe lesions are likely metastatic in origin although incompletely assessed due to lack contrast. Mild ascites is noted. No free air, abscess or evidence of significant bowel obstruction. Examination: Patient ill-appearing No dyspnea or sign of respiratory distress Abdomen massively distended NG tube in place Urethral Moncada catheter in place with largely irrigant fluid draining Bladder irrigation procedure note: I manipulated the indwelling 18 Angolan coud tipped urethral Moncada catheter by deflating the balloon of approximately 7 cc sterile water and advancing the catheter until it was hubbed. I then reinflated the balloon and backed the catheter out until the balloon seated at the bladder neck appropriately. I then instilled about 20 to 30 cc of normal saline before bladder spasm halted further instillation without further pressure. The patient expressed a great degree of sensation consistent with someone having a bladder spasm associated with the irrigation. I continue to instill the full 60 cc, and the moment I stopped instilling the fluid, the bladder contracted and forced it back into the associated catheter tip syringe with clear yellow urine within the irrigant fluid. As a result, I reconnected the catheter to the associated floor bag. Bladder ultrasonography images reviewed in lieu of report being available: Bladder visible and urethral Moncada catheter with balloon inflated clearly within the lumen of the bladder. Bladder irrigated with 60 cc normal saline and did distend as observed ultrasonographically. Assessment and recommendation: 62-year-old gentleman with h/o CVA with left-sided deficit on Eliquis, DM 2, hypertension, hyperlipidemia presents with history of renal cell carcinoma with right renal mass seen with direct extension into the renal vein and IVC associated with inferior right medial liver lobe masses/metastases measuring 4.5 cm and massive abdominal ascites consistent with metastatic renal cell carcinoma with failure to thrive and LO. -Catheter is confirmed to be intravesical and adequately draining. I reviewed the images of the CT scan in detail. No hydronephrosis was observed on CT, and in fact the bladder was relatively compressed by the massive abdominal ascites extending down into the space of Retzius as a loculated collection mimicking a distended bladder. -Recommend continue medical oncology care and consultation as appropriate. -No role for urologic management at this time. Supportive care. -Nephrology consult
[2022-12-09] MEDS: D5W 1,000 ML with NA BICARB 8.4% 150 MEQ IV SCH ×2 (18:43)
--- NOTE | 2022-12-09 19:57 | RAD REPORT ---
EXAM DESCRIPTION: US - Urinary Bladder - 12/09/2022 6:13 pm CLINICAL HISTORY: Check Moncada catheter placement/urinary retention FINDINGS: Catheter is present within the lumen of the bladder. Bladder volume 32 cc 200 cc normal saline was then administered into the catheter. The bladder appropriately distended IMPRESSION: Moncada catheter with its balloon in the lumen of the bladder
[2022-12-09] MEDS: FAMOTIDINE 20 MG/2 ML VIAL IV SCH (20:46)
[2022-12-10 06:27] LABS: Hematocrit 23.8 % (39.6-49.0); Lymphocytes % 11.7 % (15.3-44.8); MCV 74.1 fL (80-100); MPV 7.4 fL (7.6-11.3); RBC Red Blood Cell Count 3.22 M/uL (4.33-5.43)
[2022-12-10 06:47] LABS: Albumin 2.1 g/dL (3.4-5.0); Bilirubin Total 0.9 mg/dL (0.2-1.0); Potassium 4.1 mEq/L (3.5-5.1); Protein, Total 7.2 g/dL (6.4-8.2); Uric Acid 12.3 mg/dL (3.5-7.2)
[2022-12-10] MEDS: INSULIN -REGULAR HUMAN 50 UNIT/0.5 ML ML SQ SCH ×4 (07:30→21:00)
[2022-12-10] MEDS: FAMOTIDINE 20 MG/2 ML VIAL IV SCH (08:02)
[2022-12-10] MEDS: MEDIHONEY 44 ML TOPICAL TUBE TOP SCH (08:02)
[2022-12-10] MEDS: D5W 1,000 ML with NA BICARB 8.4% 150 MEQ IV SCH ×2 (08:03)
[2022-12-10] MEDS: ALBUMIN HUMAN 25% 100 ML IV SCH ×2 (11:19→22:56)
--- NOTE | 2022-12-10 11:23 | P.PN ---
Nephrology (S) NGT in place, no reports of large gastric output, pt denies any acute complaints, abd distention persists, UOP minimal, renal function tests discussed in detail (O) Vitals, medications, blood work and imaging reviewed in the chart. General: Appears chronically ill HEENT: Atraumatic, NGT, LFNC Neck: Supple Cardiovascular: Regular rate/rhythm mostly Lungs: b/l air entry, no wheezing Gastrointestinal: soft, mod distention, NT, juarez present Musculoskeletal: Peripheral distal edema, left leg wrapped Integumentary: No rashes Neurological: Lethargic but awake, responds slowly but appropriately Laboratory Data (last 24 hrs) Reviewed in the EMR Imagings Data: EXAM DESCRIPTION: CT - Chest Abd Pelvis Wo Con - 12/08/2022 10:37 am CLINICAL HISTORY: Chest and abdomen pain. AMS/weakness COMPARISON: Chest Abdomen Pelvis W Cont dated 09/18/2021 TECHNIQUE: Limited noncontrast study was performed. All CT scans are performed using dose optimization technique as appropriate and may include automated exposure control or mA/KV adjustment according to patient size. FINDINGS: No pulmonary nodule or mass is identified. Mild linear atelectasis is present in both lung bases.No pleural or pericardial effusion.No intrathoracic adenopathy. Abnormal diminished density masses are present in the inferior medial right lobe of the liver, largest measuring 4.5 cm. There is abnormal mass lesion involving the right kidney with direct extension into the right renal vein in the inferior vena cava noted. Mild ascites is present. A bowel obstruction is not present. Poorly defined omental areas of soft tissue prominence seen, difficult to discern due to lack of contrast in the GI tract. No lytic or blastic bone lesion. IMPRESSION: Right renal malignancy is again seen with direct extension into the right renal vein and inferior vena cava. Right hepatic lobe lesions are likely metastatic in origin although incompletely assessed due to lack contrast. Mild ascites is noted. No free air, abscess or evidence of significant bowel obstruction. Conclusions/Impression: Stage III ARF with Cr level > 4 mg/dl ths AM, multi-factorial including hypotension/concurrent ACEi use induced potential ATN, Rt renal vein occlusion/other +/- -Juarez in place, draining when bladder irrigated, Urology assistance appreciated. With abdominal distention and ascites although not tense, there may be some possibility of intra abdominal HTN but bladder transducer not avail to measure pressur -Remains oliguric, will d/c IVF to prevent worsening of 3rd space edema and with BP holding off anti hypertensive therapy. Will try lasix challenge but if pt fails to respond, risk for (at least temp) WHITE [employer] H[employer]ER/HD discussed with pt. Hyperuricemia -Level no lower post IVF hydration. Has been on tyrosine kinase inhibitor, no other criteria for TLS. Will place on Allopurinol Hypotension -Scheduled anti hypertensives held, will stop IVF but will dose IV Albumin prior to IV lasix challenge RCC with invasion into renal vein/IVC and with liver mets -Cont anticoagulation, if tolerated, given involvement of IVC. Primary team has reportedly contacted pt's Oncologist. Nathan Jacinto MD, [facility]
--- NOTE | 2022-12-10 12:45 | P.PN ---
Subjective Date of Service: 12/10/22 Primary Care Provider: Dr. Bolaños Chief Complaint: LO Subjective: No new changes Review of Systems 10-point ROS is otherwise unremarkable Physical Examination - Vital Signs Temperature: 97.4 F Blood Pressure: 104/57 Pulse: 105 Respirations: 16 Pulse Ox (%): 92 - Physical Exam General: Alert, In no apparent distress HEENT: Atraumatic, PERRLA, EOMI Neck: Supple, JVD not distended Respiratory: Clear to auscultation bilaterally, Normal air movement Cardiovascular: Regular rate/rhythm, Normal S1 S2 Gastrointestinal: Normal bowel sounds, No tenderness Musculoskeletal: No tenderness Integumentary: No rashes Neurological: Normal speech, Normal tone, Normal affect Lymphatics: No axilla or inguinal lymphadenopathy Assessment And Plan - Current Problems (Diagnosis) (1) Acute renal failure Current Visit: Yes Status: Acute Plan: will start him on fluids. Consult to Dr. Shah. Will continue to monitor his creatine. Hold acei. 12.10 no urine production. Have discussed with Nephro. the patient has mild improvement. May need renal replacement therapy. Which he is willing to do. Qualifiers: Acute renal failure type: unspecified Qualified Code(s): N17.9 - Acute kidney failure, unspecified (2) Renal cell carcinoma Current Visit: No Status: Acute Plan: He is on an oral chemo agent. Will need to contact his Oncologist. Dr. Ishaan Pruett. asked the family to get his office number. Will try contacting him for the treatment plan 12/10 Have discussed his poor prognosis with the patient. Hospice may be an option rather than dialysis. However it is the patient decision. Currently he is not ready. wants renal replacement therapy if his kidney function declines. Qualifiers: Laterality: right Qualified Code(s): C64.1 - Malignant neoplasm of right kidney, except renal pelvis (3) Diabetes Onset Date: 12/23/17 Current Visit: No Status: Chronic Plan: will start him on an insulin sliding scale. Will continue januvia from his home medications Qualifiers: Diabetes mellitus type: type 2 Diabetes mellitus intermodal customer service insulin use: without intermodal customer service use Diabetes mellitus complication status: without complication Qualified Code(s): E11.9 - Type 2 diabetes mellitus without complications (4) HTN (hypertension) Onset Date: 12/23/17 Current Visit: No Status: Chronic Plan: hold the lisinopril. Will continue the amlodipine Qualifiers: Hypertension type: primary hypertension Qualified Code(s): I10 - Essential (primary) hypertension Discharge Plan: Home Plan to discharge in: 24 Hours Physician Review: Patient Assessed, Agree with Above Assessment and Plan Critical Care: No Time Spent Managing PTS Care (In Minutes): 30
[2022-12-10] MEDS ORDERED: FUROSEMIDE 40 MG/4 ML VIAL IV ONE (13:00)
--- NOTE | 2022-12-10 13:26 | CON ---
Date of Consultation: 12/09/2022 Reason For Service: Abdominal distention and ileus. History Of Present Illness: This is a case of a 62-year-old patient with history of kidney cancer, m etastatic to the liver. Patient came with weakness, failure to thrive, admitted to the hospital. Du ring the process, patient was found to have also abdominal distention. Apparently, he has been seen by urologist for stent placement. He is well known to have kidney cancer, also history of CVA, hyper tension, hyperlipidemia. Most of the information is obtained from the chart since the patient cannot give much information. At this moment review of systems, he has very distended abdomen, although no tenderness. Past Medical History: Once again, CVA, renal cell carcinoma with what I see in the chart metastatic to the liver. Ascites, history of diabetes, CVA. Allergies: NONE KNOWN. Medications: Reviewed including Prinivil, Prilosec, Coreg. Family History: Diabetes, hypertension. Social History: He does not smoke. He does not drink alcohol. Review of Systems: Limited as the patient does not give much information. Physical Examination: General: Patient is awake, alert, in no apparent distress. HEENT: Pupils are equal and reactive. Anicteric. Neck: Supple. Chest: Bilateral breath sounds. Abdomen: Distended. No guarding, no rebound. No significant tenderness that we can get from the pa tient. Rectal: Deferred. Extremities: Good capillary refill. Diagnostic Data: CAT scan of abdomen and pelvis interpreted by Dr. Emerson on 12/08/2022: Abnormal, di minished densities, masses present in the inferior medial and right lobe of the liver. Largest about 4.5 cm. There is also an abnormal mass lesion involving the right kidney with direct extension into the renal veins and inferior vena cava. Ascites is noticed. Bowel obstruction is not seen. There are also poorly defined omental areas of soft tissue prominence. He has an updated x-ray on 12/10/19 23 that shows diffuse gas pattern in large and small bowel not organized and most compatible with dif fuse ileus. No pneumoperitoneum. Assessment: A 62-year-old patient with history of renal cell carcinoma, metastatic disease, ascites present, distended abdomen, although not tender at this moment. His intestines have a pattern of ile us and he has multiple comorbidities that can cause that. We discussed with the patient as best he u nderstands, the options that he has, obviously surgical intervention on him may not get the result th at we might expect, which is a normal bowel obstructions since we may not be able to find any specifi c transition point. We encouraged the patient to discuss options with the oncologist that may includ e hospice. From the surgical standpoint, he has no peritonitis at this moment. At one point, we not iced the intestines if developed any pneumatosis or anything that compromise ischemia of the bowel, t hen he might have to have an emergent surgery although the outcome may not improve his conditions ___ make it worse. We will keep an eye on the patient while we see the patient with you and you must give more recommendations as the case develops. PAULINO/JACQUI Voice ID: [id number] Report ID: [id number]
[2022-12-10] MEDS ORDERED: D10W 250 ML BAG IV PRN (15:00)
[2022-12-10 16:13] LABS: Calcium Oxalate Crystals- Ur Few /HPF (None Seen); Specific Gravity 1.011 (1.005-1.030); Urine Bacteria >50 /HPF (<20); Urine Bilirubin NEGATIVE (Negative); Urine Blood 3+ (OVER) (Negative); Urine Clarity Turbid (Clear); Urine Color Light-Orange (Yellow); Urine Glucose NEGATIVE (Negative); Urine Mucus Slight /HPF (None Seen); Urine Protein 1+ (Negative); Urine RBC >50 /HPF (None Seen); Urine Urobilinogen Normal (Normal)
[2022-12-10] MEDS: ENOXAPARIN 100 MG/ML SYR SQ SCH (16:35)
[2022-12-10 17:00] LABS: UR MICROALBUMIN 66.2 mg/dL (< 1.9); Urine Protein/Creatinine Ratio 0.97 ratio (<0.15)
[2022-12-11 06:29] LABS: Albumin 2.6 g/dL (3.4-5.0); Phosphorus 3.8 mg/dL (2.5-4.9)
[2022-12-11] MEDS ORDERED: VANCOMYCIN 1 GM in NA CHLORIDE 0.9% 250 ML IVPB SCH (06:36)
[2022-12-11] MEDS: INSULIN -REGULAR HUMAN 50 UNIT/0.5 ML ML SQ SCH ×4 (07:30→21:00)
[2022-12-11] MEDS: MEDIHONEY 44 ML TOPICAL TUBE TOP SCH (07:56)
[2022-12-11] MEDS: FAMOTIDINE 20 MG/2 ML VIAL IV SCH (07:57)
[2022-12-11] MEDS ORDERED: VANCOMYCIN 1.75 GM in NA CHLORIDE 0.9% 500 ML IVPB SCH (08:00)
[2022-12-11] MEDS ORDERED: VANCOMYCIN 2.5 GM in NA CHLORIDE 0.9% 500 ML IVPB ONE (08:00)
--- NOTE | 2022-12-11 13:30 | P.PN ---
Subjective Date of Service: 12/11/22 Primary Care Provider: Dr. Bolaños Chief Complaint: LO Subjective: No new changes Review of Systems 10-point ROS is otherwise unremarkable Physical Examination - Vital Signs Temperature: 98.1 F Blood Pressure: 118/72 Pulse: 115 Respirations: 16 Pulse Ox (%): 96 - Physical Exam General: Alert, In no apparent distress HEENT: Atraumatic, PERRLA, EOMI Neck: Supple, JVD not distended Respiratory: Clear to auscultation bilaterally, Normal air movement Cardiovascular: Regular rate/rhythm, Normal S1 S2 Gastrointestinal: Normal bowel sounds, No tenderness Musculoskeletal: No tenderness Integumentary: No rashes Neurological: Normal speech, Normal tone, Normal affect Lymphatics: No axilla or inguinal lymphadenopathy Assessment And Plan - Current Problems (Diagnosis) (1) Acute renal failure Current Visit: Yes Status: Acute Plan: will start him on fluids. Consult to Dr. Shah. Will continue to monitor his creatine. Hold acei. 5.11 slight improvement in his creatine. He has produced urine today. Qualifiers: Acute renal failure type: unspecified Qualified Code(s): N17.9 - Acute kidney failure, unspecified (2) Renal cell carcinoma Current Visit: No Status: Acute Plan: He is on an oral chemo agent. Will need to contact his Oncologist. Dr. Ishaan Pruett. asked the family to get his office number. Will try contacting him for the treatment plan 12/10 Have discussed his poor prognosis with the patient. Hospice may be an option rather than dialysis. However it is the patient decision. Currently he is not ready. wants renal replacement therapy if his kidney function declines. Qualifiers: Laterality: right Qualified Code(s): C64.1 - Malignant neoplasm of right kidney, except renal pelvis (3) Diabetes Onset Date: 12/23/17 Current Visit: No Status: Chronic Plan: will start him on an insulin sliding scale. Will continue januvia from his home medications Qualifiers: Diabetes mellitus type: type 2 Diabetes mellitus chcf insulin use: without terminal computer operator use Diabetes mellitus complication status: without complication Qualified Code(s): E11.9 - Type 2 diabetes mellitus without complications (4) HTN (hypertension) Onset Date: 12/23/17 Current Visit: No Status: Chronic Plan: hold the lisinopril. Will continue the amlodipine Qualifiers: Hypertension type: primary hypertension Qualified Code(s): I10 - Essential (primary) hypertension Discharge Plan: Home Plan to discharge in: 48 Hours - Code Status/Comfort Care Code Status Assessed: No Physician Review: Patient Assessed, Agree with Above Assessment and Plan Critical Care: No Time Spent Managing PTS Care (In Minutes): 20
[2022-12-11] MEDS: ENOXAPARIN 100 MG/ML SYR SQ SCH (17:38)
--- NOTE | 2022-12-11 21:42 | P.PN ---
Date of Service: 12/11/22 Vital Signs Temp Pulse Resp BP Pulse Ox 98.2 F 124 H 16 120/64 92 12/11/22 16:00 12/11/22 16:00 12/11/22 16:00 12/11/22 16:00 12/11/22 16:00 Medications Acetaminophen (Acetaminophen 500 Mg Tab) 500 mg PO Q6H PRN PRN Reason: Temp greater than 101.0 Last Admin: 12/08/22 22:39 Dose: 500 mg Dextrose (D10w 250 Ml Bag) 125 ml IV PRN PRN; Protocol PRN Reason: HYPOGLYCEMIA Emollient Gel (Medihoney 44 Ml Topical Tube) 1 appl TOP DAILY [facility] Last Admin: 12/11/22 07:56 Dose: 1 appl Enoxaparin Sodium (Enoxaparin 100 Mg/Ml Syr) 100 mg SQ DAILY 5 PM [facility] Last Admin: 12/11/22 17:38 Dose: 100 mg Famotidine (Famotidine 20 Mg/2 Ml Vial) 20 mg IV DAILY [facility]; Protocol Last Admin: 12/11/22 07:57 Dose: 20 mg Glucagon (Glucagon 1 Mg/Vial) 1 mg IM 1X PRN; Protocol PRN Reason: HYPOGLYCEMIA Hydralazine HCl (Hydralazine Hcl 20 Mg/Ml Vial) 10 mg IV Q6HP PRN PRN Reason: FOR SBP>160 OR DBP>100 MMHG Vancomycin HCl 1.75 gm/ Sodium (Chloride) 500 mls @ 250 mls/hr IVPB Q36H [facility] Last Admin: 12/11/22 07:56 Dose: 500 mls Insulin Human Regular (Insulin -Regular Human 50 Unit/0.5 Ml Ml) 0 unit SQ ACHS [facility]; Protocol Last Admin: 12/11/22 16:30 Dose: Not Given Ondansetron HCl (Ondansetron 4 Mg/2 Ml Vial) 4 mg IV Q4H PRN PRN Reason: NAUSEA / VOMITING Sodium Chloride (Flush Normal Saline 10 Ml) 10 ml IV BID [facility] Last Admin: 12/11/22 07:57 Dose: 10 ml Assessment/ Plan: Nephrology No dyspnea No chest pain Poor urine output Weakness and fatigue Feeling better No acute events overnight Vitals, medications, blood work and imaging reviewed in the chart. General: In no apparent distress, Cooperative HEENT: Atraumatic Neck: Supple Cardiovascular: Regular rate/rhythm, Edema Gastrointestinal: No guarding, Distended/ Firm Musculoskeletal: No clubbing, No contractures Integumentary: No rashes, No cyanosis Neurological: Normal speech Laboratory Data (last 24 hrs) 12/08/22 09:55: WBC 8.10, Hgb 8.7 L, Hct 27.0 L, Plt Count 465 H 12/08/22 09:55: Sodium 134 L, Potassium 4.0, BUN 44 H, Creatinine 3.83 H, Glucose 161 H, Magnesium 1.7, Total Bilirubin 0.7, AST 37, ALT 15 L, Alkaline Phosphatase 66 Imagings Data: EXAM DESCRIPTION: CT - Chest Abd Pelvis Wo Con - 12/08/2022 10:37 am CLINICAL HISTORY: Chest and abdomen pain. AMS/weakness COMPARISON: Chest Abdomen Pelvis W Cont dated 09/18/2021 TECHNIQUE: Limited noncontrast study was performed. All CT scans are performed using dose optimization technique as appropriate and may include automated exposure control or mA/KV adjustment according to patient size. FINDINGS: No pulmonary nodule or mass is identified. Mild linear atelectasis is present in both lung bases.No pleural or pericardial effusion.No intrathoracic adenopathy. Abnormal diminished density masses are present in the inferior medial right lobe of the liver, largest measuring 4.5 cm. There is abnormal mass lesion involving the right kidney with direct extension into the right renal vein in the inferior vena cava noted. Mild ascites is present. A bowel obstruction is not present. Poorly defined omental areas of soft tissue prominence seen, difficult to discern due to lack of contrast in the GI tract. No lytic or blastic bone lesion. IMPRESSION: Right renal malignancy is again seen with direct extension into the right renal vein and inferior vena cava. Right hepatic lobe lesions are likely metastatic in origin although incompletely assessed due to lack contrast. Mild ascites is noted. No free air, abscess or evidence of significant bowel obstruction. EXAM DESCRIPTION: RAD - Chest Single View - 12/08/2022 9:51 am CLINICAL HISTORY: AMS Chest pain. COMPARISON: Chest Single View dated 07/08/2018; Chest Single View dated 07/08/2018; Chest Single View dated 07/07/2018; Chest Single View dated 12/22/2017 FINDINGS: Portable technique limits examination quality. The lungs are underinflated but grossly clear. The heart is normal in size. No displaced fractures. IMPRESSION: Underinflated lungs resulting in vascular crowding. Conclusions/Impression: Stage III LO may be multi-factorial including hypotension possibly complicated by ATN, malignant infiltration, cabozantinib Proteinuria? -No NSAIDs -Continue [place]ada -HBV panel pending Hyponatremia -Fluid restriction NAG Metabolic Acidosis -Bicarb prn Hyperuricemia HTN complicated by hypotension -Hold Lisinopril and Amlodipine DM II with CKD -RISS Moderate Malnutrition/ Hypoalbuminemia Debility/ Weakness -NPO at this time -Consider PT Anemia in chronic illness Iron Deficiency 8% -Monitor H&H -Consider IV iron Diffuse Adynamic Ileus Abd Distention -Agree with NGT/ Intermittent Suction -NPO Right RCC with liver mets -Hold cabozantinib at this time Case reviewed with Dr. Bolaños
[2022-12-11] MEDS: ZOLPIDEM TARTRATE 5 MG TABLET PO PRN (21:46)
[2022-12-12 05:28] LABS: Albumin 2.6 g/dL (3.4-5.0); Magnesium 1.6 mg/dL (1.6-2.4); Phosphorus 3.4 mg/dL (2.5-4.9); Potassium 4.3 mEq/L (3.5-5.1)
[2022-12-12] MEDS: INSULIN -REGULAR HUMAN 50 UNIT/0.5 ML ML SQ SCH ×4 (07:30→20:13)
[2022-12-12] MEDS: ACETAMINOPHEN 500 MG TAB PO PRN (08:19)
[2022-12-12] MEDS: FAMOTIDINE 20 MG/2 ML VIAL IV SCH (08:20)
[2022-12-12] MEDS: MEDIHONEY 44 ML TOPICAL TUBE TOP SCH (08:21)
[2022-12-12 09:53] LABS: Hepatitis B Core Ab, Total Nonreactive (Nonreactive); Hepatitis B surface AG Interp. Nonreactive (Nonreactive); Hepatitis C Virus Ab Nonreactive (Nonreactive)
[2022-12-12 09:58] LABS: Hepatitis B Surface Ab - Quant < 3.10 mIU/mL (<8.0)
[2022-12-12] MEDS ORDERED: MAGNESIUM SULFATE 1 gm IVPB 1 GM/100 ML BAG IV ONE (11:59)
[2022-12-12] MEDS: CEFTAZIDIME 1 GM in NA CHLORIDE 0.9% 50 ML IV SCH (12:59)
[2022-12-12] MEDS: allopurinoL 100 MG TAB PO SCH (12:59)
[2022-12-12] MEDS: ALBUMIN HUMAN 25% 100 ML IV SCH ×2 (12:59→23:39)
[2022-12-12] MEDS ORDERED: CEFTAZIDIME 1 GM VIAL IV SCH (13:00)
--- NOTE | 2022-12-12 16:15 | P.PN ---
Subjective Date of Service: 12/12/22 Primary Care Provider: Dr. Bolaños Chief Complaint: LO Subjective: No new changes Review of Systems 10-point ROS is otherwise unremarkable Physical Examination - Vital Signs Temperature: 97.6 F Blood Pressure: 114/70 Pulse: 128 Respirations: 18 Pulse Ox (%): 94 - Physical Exam General: Alert, In no apparent distress HEENT: Atraumatic, PERRLA, EOMI Neck: Supple, JVD not distended Respiratory: Clear to auscultation bilaterally, Normal air movement Cardiovascular: Regular rate/rhythm, Normal S1 S2 Gastrointestinal: Normal bowel sounds, No tenderness Musculoskeletal: No tenderness Integumentary: No rashes Neurological: Normal speech, Normal tone, Normal affect Lymphatics: No axilla or inguinal lymphadenopathy Assessment And Plan - Current Problems (Diagnosis) (1) Acute renal failure Current Visit: Yes Status: Acute Plan: will start him on fluids. Consult to Dr. Shah. Will continue to monitor his creatine. Hold acei. 5.11 slight improvement in his creatine. He has produced urine today. Qualifiers: Acute renal failure type: unspecified Qualified Code(s): N17.9 - Acute kidney failure, unspecified (2) Renal cell carcinoma Current Visit: No Status: Acute Plan: He is on an oral chemo agent. Will need to contact his Oncologist. Dr. Ishaan Pruett. asked the family to get his office number. Will try contacting him for the treatment plan 12/12 Will do a paracentesis to remove the fluid. The patient does not want to take his oral medications anymore as he states they make him feel bad. He is not ready for hospice. However his prognosis is very poor. Qualifiers: Laterality: right Qualified Code(s): C64.1 - Malignant neoplasm of right kidney, except renal pelvis (3) Diabetes Onset Date: 12/23/17 Current Visit: No Status: Chronic Plan: will start him on an insulin sliding scale. Will continue januvia from his home medications Qualifiers: Diabetes mellitus type: type 2 Diabetes mellitus snf insulin use: without snf use Diabetes mellitus complication status: without complication Qualified Code(s): E11.9 - Type 2 diabetes mellitus without complications (4) HTN (hypertension) Onset Date: 12/23/17 Current Visit: No Status: Chronic Plan: hold the lisinopril. Will continue the amlodipine Qualifiers: Hypertension type: primary hypertension Qualified Code(s): I10 - Essential (primary) hypertension Discharge Plan: Home Plan to discharge in: 24 Hours - Code Status/Comfort Care Code Status Assessed: No Physician Review: Patient Assessed, Agree with Above Assessment and Plan Critical Care: No Time Spent Managing PTS Care (In Minutes): 25
[2022-12-12] MEDS: FUROSEMIDE 20 MG/ 2ML VIAL IV SCH (16:30)
--- NOTE | 2022-12-12 17:09 | P.PN ---
Nephrology (S) NGT removed, pt denies nausea but PO intake limited, abd remains distended, pt producing some urine but overall remains oliguric. (O) Vitals, medications, blood work and imaging reviewed in the chart. General: Appears chronically ill HEENT: Atraumatic, NGT removed, LFNC present Neck: Supple Cardiovascular: Regular rate/rhythm mostly Lungs: b/l air entry, no wheezing Gastrointestinal: soft, mod distention, NT, juarez present Musculoskeletal: Peripheral mild distal edema, left leg wrapped Integumentary: No rashes Neurological: Lethargic but awake, responds slowly, generalized weakness Laboratory Data (last 24 hrs) Reviewed in the EMR Imagings Data: EXAM DESCRIPTION: CT - Chest Abd Pelvis Wo Con - 12/08/2022 10:37 am CLINICAL HISTORY: Chest and abdomen pain. AMS/weakness COMPARISON: Chest Abdomen Pelvis W Cont dated 09/18/2021 TECHNIQUE: Limited noncontrast study was performed. All CT scans are performed using dose optimization technique as appropriate and may include automated exposure control or mA/KV adjustment according to patient size. FINDINGS: No pulmonary nodule or mass is identified. Mild linear atelectasis is present in both lung bases.No pleural or pericardial effusion.No intrathoracic adenopathy. Abnormal diminished density masses are present in the inferior medial right lobe of the liver, largest measuring 4.5 cm. There is abnormal mass lesion involving the right kidney with direct extension into the right renal vein in the inferior vena cava noted. Mild ascites is present. A bowel obstruction is not present. Poorly defined omental areas of soft tissue prominence seen, difficult to discern due to lack of contrast in the GI tract. No lytic or blastic bone lesion. IMPRESSION: Right renal malignancy is again seen with direct extension into the right renal vein and inferior vena cava. Right hepatic lobe lesions are likely metastatic in origin although incompletely assessed due to lack contrast. Mild ascites is noted. No free air, abscess or evidence of significant bowel obstruction. Conclusions/Impression: Stage III ARF with Cr level > 4 mg/dl ths AM, multi-factorial including hypotension/concurrent ACEi use induced potential ATN, Rt renal vein occlusion/other +/- -Juarez in place, draining when bladder irrigated, however oliguric. With abdominal distention and ascites although not tense, there may be some p ossibility of intra abdominal HTN but bladder transducer not avail to measure pressure. Nonetheless, pt may benefit from therapeutic paracentesis. -Cr level has peaked and is marginally lower since, metab profile stable, no emergent indication for AIR MOTOR REPAIRER yet but risk for (at least temp) AIR MOTOR REPAIRER/HD discussed again with pt. Hyperuricemia -Level no lower post IVF hydration. Has been on tyrosine kinase inhibitor, no other criteria for TLS. Will place on Allopurinol Hypotension, unspecified resolved. Ascites, other. Peripheral edema. -Scheduled anti hypertensives held, did stop IVF but will re-dose IV Albumin prior to IV lasix challenge RCC with invasion into renal vein/IVC and with liver mets -Cont anticoagulation, if tolerated, given involvement of IVC. Primary team has reportedly contacted pt's Oncologist. Ecoli bacteriuria. Abnormal findings in urine, other -D/c IV Vanc. Place on Ceftazidime, renally dosed. Nathan Jacinto MD, [facility]
[2022-12-12] MEDS: ENOXAPARIN 100 MG/ML SYR SQ SCH (18:16)
[2022-12-12] MEDS ORDERED: VANCOMYCIN 1.75 GM in NA CHLORIDE 0.9% 500 ML IVPB SCH (20:00)
[2022-12-12] MEDS: ENSURE HIGH PROTEIN 237 ML CAN PO SCH (20:19)
[2022-12-12] MEDS: ONDANSETRON 4 MG/2 ML VIAL IV PRN (20:19)
[2022-12-12] MEDS: ZOLPIDEM TARTRATE 5 MG TABLET PO PRN (20:19)
[2022-12-13] MEDS: FUROSEMIDE 20 MG/ 2ML VIAL IV SCH ×2 (03:09→16:36)
[2022-12-13 06:11] LABS: Albumin 2.4 g/dL (3.4-5.0); Phosphorus 3.5 mg/dL (2.5-4.9); Potassium 4.7 mEq/L (3.5-5.1)
[2022-12-13] MEDS: allopurinoL 100 MG TAB PO SCH (08:43)
[2022-12-13] MEDS: INSULIN -REGULAR HUMAN 50 UNIT/0.5 ML ML SQ SCH ×4 (08:44→21:11)
[2022-12-13] MEDS: MEDIHONEY 44 ML TOPICAL TUBE TOP SCH (08:44)
[2022-12-13] MEDS: ENSURE HIGH PROTEIN 237 ML CAN PO SCH ×2 (08:44→21:00)
[2022-12-13] MEDS: FAMOTIDINE 20 MG/2 ML VIAL IV SCH (08:44)
--- NOTE | 2022-12-13 09:51 | P.PN ---
Subjective Date of Service: 12/12/22 Primary Care Provider: Dr. Bolaños Chief Complaint: abdominal distention, metastatic renal cell carcinoma, ileus Subjective: No new changes Review of Systems Gastrointestinal: Vomiting (no), Abdominal Pain (no), Distention Neurological: Weakness Physical Examination - Vital Signs Temperature: 98.7 F Blood Pressure: 127/69 Pulse: 134 Respirations: 18 Pulse Ox (%): 91 - Physical Exam General: Alert, In no apparent distress Neck: Supple Gastrointestinal: No tenderness, No rebound, No guarding, Distended, Ascites Musculoskeletal: No erythema, No tenderness, No warmth Integumentary: No rashes Assessment And Plan - Plan no nausea or vomit. Although abdomen distented, its non tender. No peritonitis. Minimal BM. No transition point on his intestines. Unfortunately, as of today, this ileus may be reactive and not speciic area of obstruction that we can bypass to improve his ileus condition. Continue conservative treatment, continue serial abd exams. Physician Review: Patient Assessed, Agree with Above Assessment and Plan
--- NOTE | 2022-12-13 10:48 | PN ---
Date of Progress Note: 12/13/2022 Reason For Service: Abdominal distention and ileus. Subjective: Mr. Hatfield is a 62-year-old patient with metastatic renal cell carcinoma to the liver. We also have some omental thickening that we suspect may also be a part of the metastatic disease. Santiago luna comes with an ileus, nontender, but significant abdominal distention. Today, he is awake and alert . He is following commands. He feels better. He is tolerating some liquid diet. No nausea, vomiti ng today. No abdominal pain. Objective: Chest: Clear. Abdomen: Distended, but no peritonitis. Nontender today. Extremities: Good capillary refill. Laboratory Data: Blood work shows WBC count of 8.3 and hemoglobin of 8.2. Chemistry shows creatinin e is 4.07, potassium is 4.7. Bicarb is 20 and anion gap of 13.7. Assessment: Ileus, abdominal distention. I discussed with the patient nice and slow for him to unde rstand that the abdominal distention shows some ileus. We did not see any specific transition point that we can bypass and improve his condition. I am not saying that he will not require bypass in the future, but at least today clinically he is improving and we just have to make sure that if he can a mbulate as soon as he can and trying to avoid the medications that cause ileus and then trying to see if the diet may improve a little bit his condition, at least liquid diet. For the renal cell carcin jose, I am going to let that to the urologist, but obviously it is metastatic disease that may be cont ributing and this ileus may be reactive to that. We will follow the patient give with you and give more recommendations as the case develops. PAULINO/AGUSTOL Voice ID: [id number] Report ID: [id number]
--- NOTE | 2022-12-13 11:12 | P.PN ---
Nephrology (S) Pt's condition no better, UOP lower over the past 12-24h, abd distention appears more firm and pt acknowledges discomfort but denies any overt N/V, has taken in some liquid diet. IR did not perform ordered paracentesis yesterday, now waiting until mon. (O) Vitals, medications, blood work and imaging reviewed in the chart. General: Appears chronically ill HEENT: Atraumatic, NGT removed, off O2 Neck: Supple Cardiovascular: Regular rate/rhythm mostly Lungs: b/l air entry, no wheezing, reduced at bases Gastrointestinal: firm, mod to severe distention, NT, juarez present Musculoskeletal: Peripheral mild distal edema, left leg wrapped Integumentary: No rashes Neurological: Lethargic but awake, responds slowly, generalized weakness Laboratory Data (last 24 hrs) Reviewed in the EMR Imagings Data: EXAM DESCRIPTION: CT - Chest Abd Pelvis Wo Con - 12/08/2022 10:37 am CLINICAL HISTORY: Chest and abdomen pain. AMS/weakness COMPARISON: Chest Abdomen Pelvis W Cont dated 09/18/2021 TECHNIQUE: Limited noncontrast study was performed. All CT scans are performed using dose optimization technique as appropriate and may include automated exposure control or mA/KV adjustment according to patient size. FINDINGS: No pulmonary nodule or mass is identified. Mild linear atelectasis is present in both lung bases.No pleural or pericardial effusion.No intrathoracic adenopathy. Abnormal diminished density masses are present in the inferior medial right lobe of the liver, largest measuring 4.5 cm. There is abnormal mass lesion involving the right kidney with direct extension into the right renal vein in the inferior vena cava noted. Mild ascites is present. A bowel obstruction is not present. Poorly defined omental areas of soft tissue prominence seen, difficult to discern due to lack of contrast in the GI tract. No lytic or blastic bone lesion. IMPRESSION: Right renal malignancy is again seen with direct extension into the right renal vein and inferior vena cava. Right hepatic lobe lesions are likely metastatic in origin although incompletely assessed due to lack contrast. Mild ascites is noted. No free air, abscess or evidence of significant bowel obstruction. Conclusions/Impression: Stage III ARF with Cr level > 4 mg/dl ths AM, multi-factorial including hypotension/concurrent ACEi use induced potential ATN, Rt renal vein occlusion/other +/- -Juarez in place, draining when bladder irrigated, however with increased anuria over the past 12-24h. Pt does have abdominal distention and ascites appears possibly more tense, there is the possibility of intra abdominal HTN but bladder transducer not avail to measure pressure. Nonetheless, pt would benefit from therapeutic paracentesis. Ordered but IR did not perform Fri so waiting now until Mon. -Cr level had peaked and was marginally lower briefly but levels worse this AM, no emergent indication for SPRING UPHOLSTERER yet but risk for (at least temp) SPRING UPHOLSTERER/HD remains however pt's overall prognosis is poor. Pt does not appear to have the capacity for complex decision making, he seems to indicate there is a friend who may be assisting with medical decision making, will reach out to them or consult CM Hyperuricemia -Level no lower post IVF hydration. Has been on tyrosine kinase inhibitor, no other sig criteria for TLS. Did place on Allopurinol Hypotension, unspecified resolved. Ascites, other. Peripheral edema. -Scheduled anti hypertensives held, did stop IVF but did re-dose IV Albumin prior to IV lasix challenge RCC with invasion into renal vein/IVC and with liver mets -Cont anticoagulation, if tolerated, given involvement of IVC. Primary team has reportedly contacted pt's Oncologist. Ecoli bacteriuria. Abnormal findings in urine, other -D/c'ed IV Vanc. Placed on Ceftazidime, renally dosed. Nathan Jacinto MD, [facility]IO
[2022-12-13] MEDS: ALBUMIN HUMAN 25% 100 ML IV SCH (12:13)
[2022-12-13] MEDS: CEFTAZIDIME 1 GM in NA CHLORIDE 0.9% 50 ML IV SCH (13:15)
--- NOTE | 2022-12-13 14:23 | P.PN ---
Subjective Date of Service: 12/13/22 Primary Care Provider: Dr. Bolaños Chief Complaint: abdominal distention, metastatic renal cell carcinoma, ileus Subjective: Worsening, Other (Patient wishes to be transfered to [facility]. Discussed it would be better to go to [facility] where his oncologist Dr. Cross is) Review of Systems 10-point ROS is otherwise unremarkable Gastrointestinal: Distention Physical Examination - Vital Signs Temperature: 98.7 F Blood Pressure: 127/69 Pulse: 134 Respirations: 18 Pulse Ox (%): 91 - Physical Exam General: Alert, In no apparent distress HEENT: Atraumatic, PERRLA, EOMI Neck: Supple, JVD not distended Respiratory: Clear to auscultation bilaterally, Normal air movement Cardiovascular: Regular rate/rhythm, Normal S1 S2 Gastrointestinal: Normal bowel sounds, No tenderness, Distended Musculoskeletal: No tenderness Integumentary: No rashes Neurological: Normal speech, Normal tone, Normal affect Lymphatics: No axilla or inguinal lymphadenopathy Assessment And Plan - Current Problems (Diagnosis) (1) Acute renal failure Current Visit: Yes Status: Acute Plan: will start him on fluids. Consult to Dr. Shah. Will continue to monitor his creatine. Hold acei. 12.13 creatine is about the same. Awaiting paracentesis Qualifiers: Acute renal failure type: unspecified Qualified Code(s): N17.9 - Acute kidney failure, unspecified (2) Renal cell carcinoma Current Visit: No Status: Acute Plan: He is on an oral chemo agent. Will need to contact his Oncologist. Dr. Ishaan Pruett. asked the family to get his office number. Will try contacting him for the treatment plan 12/13 Will replace the NGT to gentle suction Will do a paracentesis to remove the fluid. The patient does not want to take his oral medications anymore as he states they make him feel bad. He is not ready for hospice. However his prognosis is very poor. Qualifiers: Laterality: right Qualified Code(s): C64.1 - Malignant neoplasm of right kidney, except renal pelvis (3) Diabetes Onset Date: 12/23/17 Current Visit: No Status: Chronic Plan: will start him on an insulin sliding scale. 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 Will continue the amlodipine Qualifiers: Hypertension type: primary hypertension Qualified Code(s): I10 - Essential (primary) hypertension Discharge Plan: Transfer Plan to discharge in: 48 Hours - Code Status/Comfort Care Code Status Assessed: No Physician Review: Patient Assessed, Agree with Above Assessment and Plan Critical Care: No Time Spent Managing PTS Care (In Minutes): 20
[2022-12-13] MEDS: ENOXAPARIN 100 MG/ML SYR SQ SCH (16:36)
--- NOTE | 2022-12-13 16:48 | RAD REPORT ---
EXAM DESCRIPTION: RAD - Abdomen 1 View (KUB) - 12/13/2022 4:27 pm CLINICAL HISTORY: Placement of NGT/OGT. Post Insertion. COMPARISON: Abdomen 1 View (KUB) dated 12/09/2022; Chest Abd Pelvis Wo Con dated 12/08/2022 FINDINGS/IMPRESSION: NG tube terminates overlying the proximal stomach. Consider advancing by anothe r 7 cm as the most proximal hole is probably in the distal esophagus. Diffuse small bowel and colonic distension. This could reflect an ileus.
[2022-12-13] MEDS ORDERED: ENOXAPARIN 100 MG/ML SYR SQ SCH (17:00)
--- NOTE | 2022-12-13 18:08 | RAD REPORT ---
EXAM DESCRIPTION: RAD - Abdomen 1 View (KUB) - 12/13/2022 5:52 pm CLINICAL HISTORY: advanced ngt COMPARISON: Abdomen 1 View (KUB) dated 12/13/2022; Abdomen 1 View (KUB) dated 12/09/2022bdomen 1 View (KUB) dated 12/13/2022; Abdomen 1 View (KUB) dated 12/09/2022 FINDINGS/IMPRESSION: The NG tube has been advanced into the lower stomach and is in more optimal pos itioning.
[2022-12-13] MEDS: ZOLPIDEM TARTRATE 5 MG TABLET PO PRN (21:11)
[2022-12-14] MEDS: ALBUMIN HUMAN 25% 100 ML IV SCH (00:08)
[2022-12-14] MEDS: FUROSEMIDE 20 MG/ 2ML VIAL IV SCH (04:00)
[2022-12-14] MEDS: INSULIN -REGULAR HUMAN 50 UNIT/0.5 ML ML SQ SCH ×4 (07:30→21:00)
--- NOTE | 2022-12-14 07:43 | RAD REPORT ---
EXAM DESCRIPTION: RAD - Abdomen 1 View (KUB) - 12/14/2022 7:08 am CLINICAL HISTORY: NGT placement Pain COMPARISON: <Comparisons> FINDINGS: Enteric tube appears coiled in the stomach. Tip of the enteric tube is likely fundal regio n of the stomach directed cephalad.
[2022-12-14] MEDS: ENSURE HIGH PROTEIN 237 ML CAN PO SCH ×2 (07:57→21:00)
[2022-12-14] MEDS: FAMOTIDINE 20 MG/2 ML VIAL IV SCH (07:59)
[2022-12-14] MEDS: allopurinoL 100 MG TAB PO SCH (07:59)
[2022-12-14] MEDS: MEDIHONEY 44 ML TOPICAL TUBE TOP SCH (08:00)
[2022-12-14 08:14] LABS: Albumin 2.6 g/dL (3.4-5.0); Phosphorus 3.9 mg/dL (2.5-4.9); Potassium 4.8 mEq/L (3.5-5.1)
[2022-12-14 09:30] LABS: Hematocrit 23.6 % (39.6-49.0); MCV 74.7 fL (80-100); MPV 8.4 fL (7.6-11.3); RBC Red Blood Cell Count 3.15 M/uL (4.33-5.43)
[2022-12-14 10:07] LABS: Anisocytosis 1+; Blood Morphology Comment NOTED (NOT SEEN); Platelet Estimate ADEQ; Rouleau NOTED
--- NOTE | 2022-12-14 11:57 | P.PN ---
Nephrology (S) NGT re-inserted since last seen, 300 cc gastric output overnight, additional this AM, (O) Vitals, medications, blood work and imaging reviewed in the chart. General: Appears chronically ill HEENT: Atraumatic, NGT removed, off O2 Neck: Supple Cardiovascular: Regular rate/rhythm mostly Lungs: b/l air entry, no wheezing, reduced at bases Gastrointestinal: firm, mod to severe distention, NT, juarez present Musculoskeletal: Peripheral mild distal edema, left leg wrapped Integumentary: No rashes Neurological: Lethargic but awake, responds slowly, generalized weakness, remains oligoanuric, renal function tests worse, abd remains sig distended. Unable to contact pt's sister or a friend (Heidy Todd) to discuss pt's condition and determine who else may be a surrogate medical decision maker as pt does not appear to have capacity to engage in conversation regarding complex medical decision making. Laboratory Data (last 24 hrs) Reviewed in the EMR Imagings Data: EXAM DESCRIPTION: CT - Chest Abd Pelvis Wo Con - 12/08/2022 10:37 am CLINICAL HISTORY: Chest and abdomen pain. AMS/weakness COMPARISON: Chest Abdomen Pelvis W Cont dated 09/18/2021 TECHNIQUE: Limited noncontrast study was performed. All CT scans are performed using dose optimization technique as appropriate and may include automated exposure control or mA/KV adjustment according to patient size. FINDINGS: No pulmonary nodule or mass is identified. Mild linear atelectasis is present in both lung bases.No pleural or pericardial effusion.No intrathoracic adenopathy. Abnormal diminished density masses are present in the inferior medial right lobe of the liver, largest measuring 4.5 cm. There is abnormal mass lesion involving the right kidney with direct extension into the right renal vein in the inferior vena cava noted. Mild ascites is present. A bowel obstruction is not present. Poorly defined omental areas of soft tissue prominence seen, difficult to discern due to lack of contrast in the GI tract. No lytic or blastic bone lesion. IMPRESSION: Right renal malignancy is again seen with direct extension into the right renal vein and inferior vena cava. Right hepatic lobe lesions are likely metastatic in origin although incompletely assessed due to lack contrast. Mild ascites is noted. No free air, abscess or evidence of significant bowel obstruction. Conclusions/Impression: Stage III ARF with Cr level > 4 mg/dl ths AM, multi-factorial including hypotension/concurrent ACEi use induced potential ATN, Rt renal vein occlusion/other +/- -Juarez in place, draining when bladder irrigated, however with increased anuria over the past 12-24h. Pt does have abdominal distention and ascites appears possibly more tense, there is the possibility of intra abdominal HTN but bladder transducer not avail to measure pressure. Nonetheless, pt would benefit from therapeutic paracentesis. Ordered but IR did not perform Fri so waiting now until Mon. 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 Hyperuricemia -Level no lower post IVF hydration. Had been on tyrosine kinase inhibitor, no other sig criteria for TLS. Did place on Allopurinol, will lower dose as CrCl remains quite low Hypotension, unspecified resolved. Ascites, other. Peripheral edema. -Scheduled anti hypertensives held, did stop IVF early on but did re-dose IV Albumin prior to IV lasix challenge but no increase in UOP noted. Awaiting paracentesis RCC with invasion into renal vein/IVC and with liver mets -Cont anticoagulation, if tolerated, given involvement of IVC. Primary team has reportedly contacted pt's Oncologist. Ecoli bacteriuria. Abnormal findings in urine, other -D/c'ed IV Vanc. Placed on Ceftazidime, renally dosed. Nathan Jacinto MD, [facility]
--- NOTE | 2022-12-14 13:17 | RAD REPORT ---
EXAM DESCRIPTION: RAD - Chest Single View - 12/14/2022 12:54 pm CLINICAL HISTORY: PICC line placement (right upper arm) COMPARISON: Abdomen 1 View (KUB) dated 12/14/2022; Abdomen 1 View (KUB) dated 12/13/2022; Abdomen 1 Vi ew (KUB) dated 12/13/2022; Abdomen 1 View (KUB) dated 12/09/2022 FINDINGS: Portable chest was obtained following placement of a right upper extremity PICC line. The catheter tip projects over the SVC.. Enteric tube coils in the stomach.
[2022-12-14] MEDS: CEFTAZIDIME 1 GM in NA CHLORIDE 0.9% 50 ML IV SCH (14:06)
--- NOTE | 2022-12-14 14:59 | P.PN ---
Subjective Date of Service: 12/14/22 Primary Care Provider: Dr. Bolaños Chief Complaint: abdominal distention, metastatic renal cell carcinoma, ileus Subjective: Worsening Review of Systems Gastrointestinal: Abdominal Pain, Distention Physical Examination - Vital Signs Temperature: 97.5 F Blood Pressure: 112/71 Pulse: 120 Respirations: 16 Pulse Ox (%): 98 - Physical Exam General: Alert, In no apparent distress HEENT: Atraumatic, PERRLA, EOMI Neck: Supple, JVD not distended Respiratory: Clear to auscultation bilaterally, Normal air movement Cardiovascular: Regular rate/rhythm, Normal S1 S2 Gastrointestinal: Normal bowel sounds, No tenderness Musculoskeletal: No tenderness Integumentary: No rashes Neurological: Normal speech, Normal tone, Normal affect Lymphatics: No axilla or inguinal lymphadenopathy Assessment And Plan - Current Problems (Diagnosis) (1) Acute renal failure Current Visit: Yes Status: Acute Plan: will start him on fluids. Consult to Dr. Shah. Will continue to monitor his creatine. Hold acei. 12.14 worsening function. May need dialysis if continues to worsen. Will discuss with Nephrology Qualifiers: Acute renal failure type: unspecified Qualified Code(s): N17.9 - Acute k idney failure, unspecified (2) Renal cell carcinoma Current Visit: No Status: Acute Plan: He is on an oral chemo agent. Will need to contact his Oncologist. Dr. Ishaan Pruett. asked the family to get his office number. Will try contacting him for the treatment plan 12/13 Will replace the NGT to gentle suction Will do a paracentesis to remove the fluid. The patient does not want to take his oral medications anymore as he states they make him feel bad. He is not ready for hospice. However his prognosis is very poor. Qualifiers: Laterality: right Qualified Code(s): C64.1 - Malignant neoplasm of right kidney, except renal pelvis (3) Diabetes Onset Date: 12/23/17 Current Visit: No Status: Chronic Plan: will start him on an insulin sliding scale. Will continue januvia from his home medications Qualifiers: Diabetes mellitus type: type 2 Diabetes mellitus terminal supervisor insulin use: without correction use Diabetes mellitus complication status: without complication Qualified Code(s): E11.9 - Type 2 diabetes mellitus without complications (4) HTN (hypertension) Onset Date: 12/23/17 Current Visit: No Status: Chronic Plan: hold the lisinopril. Will continue the amlodipine Qualifiers: Hypertension type: primary hypertension Qualified Code(s): I10 - Essential (primary) hypertension Discharge Plan: Home Plan to discharge in: 24 Hours - Code Status/Comfort Care Code Status Assessed: No Code Status: Full Code Physician Review: Patient Assessed, Agree with Above Assessment and Plan Critical Care: No Time Spent Managing PTS Care (In Minutes): 20
[2022-12-14] MEDS: ENOXAPARIN 100 MG/ML SYR SQ SCH (16:18)
[2022-12-14] MEDS: ZOLPIDEM TARTRATE 5 MG TABLET PO PRN (22:30)
[2022-12-14] MEDS: ACETAMINOPHEN 500 MG TAB PO PRN (22:30)
[2022-12-15 06:56] LABS: Albumin 2.3 g/dL (3.4-5.0); Phosphorus 4.7 mg/dL (2.5-4.9); Potassium 4.8 mEq/L (3.5-5.1)
[2022-12-15] MEDS: INSULIN -REGULAR HUMAN 50 UNIT/0.5 ML ML SQ SCH ×4 (07:30→21:00)
[2022-12-15] MEDS: ENSURE HIGH PROTEIN 237 ML CAN PO SCH (07:38)
[2022-12-15] MEDS: allopurinoL 100 MG TAB PO SCH (07:39)
[2022-12-15] MEDS: FAMOTIDINE 20 MG/2 ML VIAL IV SCH (07:48)
[2022-12-15] MEDS: MEDIHONEY 44 ML TOPICAL TUBE TOP SCH (07:49)
[2022-12-15 08:58] LABS: Hematocrit 18.3 % (39.6-49.0); MCV 74.9 fL (80-100); MPV 8.1 fL (7.6-11.3); RBC Red Blood Cell Count 2.44 M/uL (4.33-5.43)
[2022-12-15] MEDS ORDERED: NA CHLORIDE 0.9% 250 ML ONE (09:50)
[2022-12-15 11:46] LABS: Platelet Estimate ADEQ
[2022-12-15 11:47] LABS: Anisocytosis 1+; Blood Morphology Comment NOTED (NOT SEEN)
[2022-12-15] MEDS: CEFTAZIDIME 1 GM in NA CHLORIDE 0.9% 50 ML IV SCH (13:02)
--- NOTE | 2022-12-15 13:30 | P.PN ---
Subjective Date of Service: 12/15/22 Primary Care Provider: Dr. Bolaños Chief Complaint: abdominal distention, metastatic renal cell carcinoma, ileus Subjective: Worsening (had a long family meeting. Dr. Shah, Dr. Santoyo were consulted. Dr. Cross even called and spoke with the patient) Review of Systems General: Weakness Physical Examination - Vital Signs Temperature: 97.5 F Blood Pressure: 87/55 Pulse: 100 Respirations: 16 Pulse Ox (%): 100 - Physical Exam General: Alert, Moderate distress HEENT: Atraumatic, PERRLA, EOMI Neck: Supple, JVD not distended Respiratory: Clear to auscultation bilaterally, Normal air movement Cardiovascular: Regular rate/rhythm, Normal S1 S2 Gastrointestinal: Distended Musculoskeletal: No tenderness Integumentary: No rashes Neurological: Normal speech, Normal tone, Normal affect Lymphatics: No axilla or inguinal lymphadenopathy Assessment And Plan - Current Problems (Diagnosis) (1) Acute renal failure Current Visit: Yes Status: Acute Plan: will start him on fluids. Consult to Dr. Shah. Will continue to monitor his creatine. Hold acei. .15 jump in his creatine. he is now a candidate for dialysis. Dr. Shah was at the visit. 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 However the patient is not quite at acceptance at the grief stage Qualifiers: Acute renal failure type: unspecified Qualified Code(s): N17.9 - Acute ki dney failure, unspecified (2) Renal cell carcinoma Current Visit: No Status: Acute Plan: He is on an oral chemo agent. Will need to contact his Oncologist. Dr. Ishaan Pruett. asked the family to get his office number. Will try contacting him for the treatment plan 12/15 Patient has omental spread. Family friend wants him to go to [facility] had a long meeting to discuss this Qualifiers: Laterality: right Qualified Code(s): C64.1 - Malignant neoplasm of right kidney, except renal pelvis (3) End of life care Current Visit: Yes Status: Acute Plan: spent more than an hour discussing the patients prognosis. 1. Dr. Santoyo states that the omental thickening is most likely metastatic. Would not take him for surgery for the illeus. the patient has not been able to tolerate food for the past 2 days. 2. renal failure. He most likely will need dialysis . Dr. Shah and I are in agreement. HD will not improve his assisted mortality. Most likely give him a few weeks. 3. Dr. Cross called and discussed with the patient that He most likely would not get any improvement with different chemotherapy. He knows his collegues at [facility] and most likely they would recomend hospice for this patient. (4) Diabetes Onset Date: 12/23/17 Current Visit: No Status: Chronic Plan: will start him on an insulin sliding scale. Will continue januvia from his home medications Qualifiers: Diabetes mellitus type: type 2 Diabetes mellitus long lines operator insulin use: without long lines operator use Diabetes mellitus complication status: without complicat ion Qualified Code(s): E11.9 - Type 2 diabetes mellitus without complications (5) HTN (hypertension) Onset Date: 12/23/17 Current Visit: No Status: Chronic Plan: hold the lisinopril. Will continue the amlodipine Qualifiers: Hypertension type: primary hypertension Qualified Code(s): I10 - Essential (primary) hypertension Discharge Plan: Home Plan to discharge in: Greater than 2 days - Code Status/Comfort Care Code Status Assessed: Yes Physician Review: Patient Assessed, Agree with Above Assessment and Plan Critical Care: No Time Spent Managing PTS Care (In Minutes): 90
--- NOTE | 2022-12-15 15:20 | PN ---
Date of Progress Note: 12/15/2022 Diagnosis: Multiple metastatic renal cell carcinoma to the liver. The patient has also an ileus, bu t at this time they are concerning for something new, which is the placement of hemodialysis catheter . We were discussing this case with the primary doctor and in this case, Dr. Bolaños, Dr. Villanueva and the family member were present to trying to look at the alternatives that we have considering his met astatic disease. The pros and cons of dialysis were explained including, but not limited to infectio n, bleeding, damage to adjacent structures, anesthesia complication, pneumothorax, hemothorax, AR, an d even . The point is between the Renal Service and the primary service trying to determine his quality of life and he was suggested to go into hospice. Dr. Bolaños has been explained also to the f amily and has been updating them on the current situation. He just came in right now that the family decided to go for hemodialysis, so we will then book him in Surgery. I noticed the patient's hemogl obin of 5 and INR is still pending, so if we improves those or at least we have satisfactory numbers, then we will proceed accordingly understanding and the patient understands that this is the vehicle how to provide dialysis, but it is not the treatment for his ileus or he has renal cell carcinoma. PAULINO/JACQUI Voice ID: [id number] Report ID: [id number]
[2022-12-15 15:29] LABS: Hematocrit 22.7 % (39.6-49.0)
[2022-12-15] MEDS ORDERED: DEXTROSE 10%-WATER 500 ML IV SCH (16:00)
[2022-12-15] MEDS ORDERED: AMINO ACIDS 5 %/DEXTROSE 20 % 2,000 ML, Lipids 20% 250 ML with MULTIVITAMINS INJ 10 ML IV SCH ×3 (17:00)
[2022-12-15] MEDS: ENOXAPARIN 100 MG/ML SYR SQ SCH (17:06)
--- NOTE | 2022-12-15 21:04 | P.PN ---
Date of Service: 12/15/22 Vital Signs Temp Pulse Resp BP Pulse Ox 97.5 F 123 H 18 89/66 L 99 12/15/22 16:00 12/15/22 16:00 12/15/22 16:00 12/15/22 16:00 12/15/22 16:00 Medications Acetaminophen (Acetaminophen 500 Mg Tab) 500 mg PO Q6H PRN PRN Reason: Temp greater than 101.0 Last Admin: 12/14/22 22:30 Dose: 500 mg Allopurinol (Allopurinol 100 Mg Tab) 100 mg PO DAILY [facility] Last Admin: 12/15/22 07:39 Dose: Not Given Dextrose (D10w 250 Ml Bag) 125 ml IV PRN PRN; Protocol PRN Reason: HYPOGLYCEMIA Emollient Gel (Medihoney 44 Ml Topical Tube) 1 appl TOP DAILY [facility] Last Admin: 12/15/22 07:49 Dose: 1 appl Enoxaparin Sodium (Enoxaparin 100 Mg/Ml Syr) 100 mg SQ DAILY 5 PM [facility] Last Admin: 12/15/22 17:06 Dose: 100 mg Famotidine (Famotidine 20 Mg/2 Ml Vial) 20 mg IV DAILY [facility]; Protocol Last Admin: 12/15/22 07:48 Dose: 20 mg Glucagon (Glucagon 1 Mg/Vial) 1 mg IM 1X PRN; Protocol PRN Reason: HYPOGLYCEMIA Hydralazine HCl (Hydralazine Hcl 20 Mg/Ml Vial) 10 mg IV Q6HP PRN PRN Reason: FOR SBP>160 OR DBP>100 MMHG Ceftazidime 1 gm/ Sodium (Chloride) 50 mls @ 100 mls/hr IV Q24H [facility] Last Admin: 12/15/22 13:02 Dose: 50 mls Multivitamins 10 ml/ AMINO ACIDS 5 %/DEXTROSE 20 %/ Fat Emulsion Intravenous 2,260 mls @ 30 mls/hr IV 1X CESILIA Stop: 12/16/22 16:59 Last Admin: 12/15/22 17:06 Dose: 2,260 mls Dextrose (D10w 500 Ml Ivpb) 500 mls @ 0 mls/hr IV .Q0M [facility] Multivitamins 10 ml/ AMINO ACIDS 5 %/DEXTROSE 20 %/ Fat Emulsion Intravenous 2,260 mls @ 75 mls/hr IV M,W,F [facility] AMINO ACIDS 5 %/DEXTROSE 20 % (Clinimix 5%-20% Solution) 2,000 mls @ 75 mls/hr IV [id number]@1700 [facility] Insulin Human Regular (Insulin -Regular Human 50 Unit/0.5 Ml Ml) 0 unit SQ ACHS [facility]; Protocol Last Admin: 12/15/22 16:30 Dose: Not Given Ondansetron HCl (Ondansetron 4 Mg/2 Ml Vial) 4 mg IV Q4H PRN PRN Reason: NAUSEA / VOMITING Last Admin: 12/12/22 20:19 Dose: 4 mg Sodium Chloride (Flush Normal Saline 10 Ml) 10 ml IV BID [facility] Last Admin: 12/15/22 07:38 Dose: Not Given Zolpidem Tartrate (Zolpidem Tartrate 5 Mg Tablet) 5 mg PO BEDTIME PRN PRN PRN Reason: INSOMNIA Last Admin: 12/14/22 22:30 Dose: 5 mg Assessment/ Plan: Nephrology No dyspnea No chest pain Poor urine output Weakness and fatigue No acute events overnight Vitals, medications, blood work and imaging reviewed in the chart. General: In no apparent distress, Cooperative HEENT: Atraumatic Neck: Supple Cardiovascular: Regular rate/rhythm, Edema Gastrointestinal: No guarding, Distended/ Firm Musculoskeletal: No clubbing, No contractures Integumentary: No rashes, No cyanosis Neurological: Normal speech Laboratory Data (last 24 hrs) 12/08/22 09:55: WBC 8.10, Hgb 8.7 L, Hct 27.0 L, Plt Count 465 H 12/08/22 09:55: Sodium 134 L, Potassium 4.0, BUN 44 H, Creatinine 3.83 H, Glucose 161 H, Magnesium 1.7, Total Bilirubin 0.7, AST 37, ALT 15 L, Alkaline Phosphatase 66 Imagings Data: EXAM DESCRIPTION: CT - Chest Abd Pelvis Wo Con - 12/08/2022 10:37 am CLINICAL HISTORY: Chest and abdomen pain. AMS/weakness COMPARISON: Chest Abdomen Pelvis W Cont dated 09/18/2021 TECHNIQUE: Limited noncontrast study was performed. All CT scans are performed using dose optimization technique as appropriate and may include automated exposure control or mA/KV adjustment according to patient size. FINDINGS: No pulmonary nodule or mass is identified. Mild linear atelectasis is present in both lung bases.No pleural or pericardial effusion.No intrathoracic adenopathy. Abnormal diminished density masses are present in the inferior medial right lobe of the liver, largest measuring 4.5 cm. There is abnormal mass lesion involving the right kidney with direct extension into the right renal vein in the inferior vena cava noted. Mild ascites is present. A bowel obstruction is not present. Poorly defined omental areas of soft tissue prominence seen, difficult to discern due to lack of contrast in the GI tract. No lytic or blastic bone lesion. IMPRESSION: Right renal malignancy is again seen with direct extension into the right renal vein and inferior vena cava. Right hepatic lobe lesions are likely metastatic in origin although incompletely assessed due to lack contrast. Mild ascites is noted. No free air, abscess or evidence of significant bowel obstruction. EXAM DESCRIPTION: RAD - Chest Single View - 12/08/2022 9:51 am CLINICAL HISTORY: AMS Chest pain. COMPARISON: Chest Single View dated 07/08/2018; Chest Single View dated 07/08/2018; Chest Single View dated 07/07/2018; Chest Single View dated 12/22/2017 FINDINGS: Portable technique limits examination quality. The lungs are underinflated but grossly clear. The heart is normal in size. No displaced fractures. IMPRESSION: Underinflated lungs resulting in vascular crowding. Conclusions/Impression: Stage III LO may be multi-factorial including hypotension possibly complicated by ATN, malignant infiltration, cabozantinib Proteinuria? -No NSAIDs -Continue Mon[place]ada -HBV panel pending Hyponatremia -Fluid restriction NAG Metabolic Acidosis -Bicarb prn Hyperuricemia HTN complicated by hypotension -Hold Lisinopril and Amlodipine DM II with CKD -RISS Moderate Malnutrition/ Hypoalbuminemia Debility/ Weakness -NPO at this time -Consider PT Anemia in chronic illness Iron Deficiency 8% -Monitor H&H -Consider IV iron Diffuse Adynamic Ileus Abd Distention -Agree with NGT/ Intermittent Suction -NPO Right RCC with liver mets Liver ascites -Hold cabozantinib at this time Case reviewed with Dr. Bolaños and Dr. Santoyo The patient requested dialysis despite counseling against dialysis due to his poor prognosis
[2022-12-15] MEDS ORDERED: NA CHLORIDE 0.9% 1,000 ML IV PRN (21:08)
[2022-12-15] MEDS ORDERED: MANNITOL 25% 12.5 GM/50 ML VIAL IV PRN (21:08)
[2022-12-15] MEDS ORDERED: ALBUMIN HUMAN 25% 50 ML IV SCH (22:00)
[2022-12-16] MEDS: ACETAMINOPHEN 500 MG TAB PO PRN (05:15)
[2022-12-16] MEDS: MEDIHONEY 44 ML TOPICAL TUBE TOP SCH (07:37)
[2022-12-16] MEDS: FAMOTIDINE 20 MG/2 ML VIAL IV SCH (07:37)
[2022-12-16] MEDS: allopurinoL 100 MG TAB PO SCH (07:37)
[2022-12-16] MEDS: INSULIN -REGULAR HUMAN 50 UNIT/0.5 ML ML SQ SCH ×4 (08:12→20:40)
[2022-12-16 08:47] LABS: Absolute Lymphocytes (CBC) 0.5 K/uL (0.7-4.9); Hematocrit 23.8 % (39.6-49.0); Lymphocytes % 3.2 % (15.3-44.8); MCV 75.4 fL (80-100); RBC Red Blood Cell Count 3.16 M/uL (4.33-5.43)
[2022-12-16 08:52] LABS: Protime INR 1.14
[2022-12-16 09:32] LABS: Anisocytosis 1+; Blood Morphology Comment NOTED (NOT SEEN); Platelet Estimate INCR; Polychromasia 1+
[2022-12-16] MEDS ORDERED: NA CHLORIDE 0.9% 500 ML ONE (09:34)
--- NOTE | 2022-12-16 10:37 | P.PN ---
Subjective Date of Service: 12/16/22 Primary Care Provider: Dr. Bolaños Chief Complaint: abdominal distention, metastatic renal cell carcinoma, ileus Subjective: Worsening (anesthesiology states he should be intubated for surgery. They state he most likely will not every get off the ventilator) Review of Systems 10-point ROS is otherwise unremarkable General: Weakness Respiratory: Shortness of Breath Physical Examination - Vital Signs Temperature: 97.3 F Blood Pressure: 100/69 Pulse: 124 Respirations: 20 Pulse Ox (%): 97 - Physical Exam General: Alert, Moderate distress HEENT: Atraumatic, PERRLA, EOMI Neck: Supple, JVD not distended Respiratory: Clear to auscultation bilaterally, Normal air movement Cardiovascular: Regular rate/rhythm, Normal S1 S2 Gastrointestinal: Normal bowel sounds, No tenderness Musculoskeletal: No tenderness Integumentary: No rashes Neurological: Normal speech, Normal tone, Normal affect Lymphatics: No axilla or inguinal lymphadenopathy Assessment And Plan - Current Problems (Diagnosis) (1) Renal cell carcinoma Current Visit: No Status: Acute Plan: He is on an oral chemo agent. Will need to contact his Oncologist. Dr. Ishaan Pruett. asked the family to get his office number. Will try contacting him for the treatment plan 12/16 Have discussed with the patient and His daughter Jordana [phone] will cancel the surgery. Change him to DNR and consult hospice on the patient. Both the patient and his daughter agreed to this Qualifiers: Laterality: right Qualified Code(s): C64.1 - Malignant neoplasm of right kidney, except renal pelvis (2) Acute renal failure Current Visit: Yes Status: Acute Plan: will start him on fluids. Consult to Dr. Shah. Will continue to monitor his creatine. Hold acei. 5.15 jump in his creatine. he is now a candidate for dialysis. Dr. Shah was at the visit. As the patient cannot eat HD will not improve his custodial prognosis. However the patient is not quite at acceptance at the grief stage Qualifiers: Acute renal failure type: unspecified Qualified Code(s): N17.9 - Acute kidney failure, unspecified (3) End of life care Current Visit: Yes Status: Acute Plan: spent more than an hour discussing the patients prognosis. 1. Dr. Santoyo states that the omental thickening is most likely metastatic. Would not take him for surgery for the illeus. the patient has not been able to tolerate food for the past 2 days. 2. renal failure. He most likely will need dialysis . Dr. Shah and I are in agreement. HD will not improve his custodial mortality. Most likely give him a few weeks. 3. Dr. Cross called and discussed with the patient that He most likely would not get any improvement with different chemotherapy. He knows his collegues at [facility] and most likely they would recomend hospice for this patient. (4) Diabetes Onset Date: 12/23/17 Current Visit: No Status: Chronic Plan: will start him on an insulin sliding scale. Will continue januvia from his home medications Qualifiers: Diabetes mellitus type: type 2 Diabetes mellitus custodial insulin use: without custodial use Diabetes mellitus complication status: without complication Qualified Code(s): E11.9 - Type 2 diabetes mellitus without complications (5) HTN (hypertension) Onset Date: 12/23/17 Current Visit: No Status: Chronic Plan: hold the lisinopril. Will continue the amlodipine Qualifiers: Hypertension type: primary hypertension Qualified Code(s): I10 - Essential (primary) hypertension Discharge Plan: Home Plan to discharge in: 24 Hours - Code Status/Comfort Care Code Status Assessed: No Code Status: Do Not Attempt Resuscitat Physician Review: Patient Assessed, Agree with Above Assessment and Plan Critical Care: No Time Spent Managing PTS Care (In Minutes): 45
[2022-12-16] MEDS: CEFTAZIDIME 1 GM in NA CHLORIDE 0.9% 50 ML IV SCH (12:23)
[2022-12-16] MEDS: HYDROMORPHONE HCL 0.5 MG/0.5 ML INJ IV PRN ×2 (14:17→20:42)
[2022-12-16] MEDS: ONDANSETRON 4 MG/2 ML VIAL IV PRN (14:17)
[2022-12-16 14:28] VITALS: O2SAT 97
[2022-12-16] MEDS ORDERED: AMINO ACIDS 5 %/DEXTROSE 20 % 2,000 ML IV SCH (17:00)
--- NOTE | 2022-12-16 19:33 | P.PN ---
Date of Service: 12/16/22 Vital Signs Temp Pulse Resp BP Pulse Ox 97.8 F 123 H 20 98/60 100 12/16/22 16:00 12/16/22 16:00 12/16/22 16:00 12/16/22 16:00 12/16/22 16:00 Medications Acetaminophen (Acetaminophen 500 Mg Tab) 500 mg PO Q6H PRN PRN Reason: Temp greater than 101.0 Last Admin: 12/16/22 05:15 Dose: 500 mg Allopurinol (Allopurinol 100 Mg Tab) 100 mg PO DAILY [facility] Last Admin: 12/16/22 07:37 Dose: Not Given Dextrose (D10w 250 Ml Bag) 125 ml IV PRN PRN; Protocol PRN Reason: HYPOGLYCEMIA Emollient Gel (Medihoney 44 Ml Topical Tube) 1 appl TOP DAILY [facility] Last Admin: 12/16/22 07:37 Dose: 1 appl Enoxaparin Sodium (Enoxaparin 100 Mg/Ml Syr) 100 mg SQ DAILY 5 PM [facility] Last Admin: 12/15/22 17:06 Dose: 100 mg Famotidine (Famotidine 20 Mg/2 Ml Vial) 20 mg IV DAILY [facility]; Protocol Last Admin: 12/16/22 07:37 Dose: 20 mg Glucagon (Glucagon 1 Mg/Vial) 1 mg IM 1X PRN; Protocol PRN Reason: HYPOGLYCEMIA Heparin Sodium (Porcine) (Heparin 1,000 Unit/Ml Vial) 6,000 unit IV EVERY HD PRN PRN Reason: AFTER EACH Hydralazine HCl (Hydralazine Hcl 20 Mg/Ml Vial) 10 mg IV Q6HP PRN PRN Reason: FOR SBP>160 OR DBP>100 MMHG Hydromorphone HCl (Hydromorphone Hcl 0.5 Mg/0.5 Ml Inj) 0.5 mg IV Q4H PRN PRN Reason: Pain scale 5-10 (Mod-Severe) Last Admin: 12/16/22 14:17 Dose: 0.5 mg Ceftazidime 1 gm/ Sodium (Chloride) 50 mls @ 100 mls/hr IV Q24H [facility] Last Admin: 12/16/22 12:23 Dose: 50 mls Dextrose (D10w 500 Ml Ivpb) 500 mls @ 0 mls/hr IV .Q0M [facility] Last Admin: 12/16/22 09:39 Dose: 0 mls Multivitamins 10 ml/ AMINO ACIDS 5 %/DEXTROSE 20 %/ Fat Emulsion Intravenous 2,260 mls @ 75 mls/hr IV M,W,F [facility] AMINO ACIDS 5 %/DEXTROSE 20 % (Clinimix 5%-20% Solution) 2,000 mls @ 75 mls/hr IV [id number] [facility] Last Admin: 12/16/22 17:08 Dose: 2,000 mls Albumin Human (Albumin 25%) 50 mls @ 100 mls/hr IV EVERY HD [facility] Insulin Human Regular (Insulin -Regular Human 50 Unit/0.5 Ml Ml) 0 unit SQ ACHS [facility]; Protocol Last Admin: 12/16/22 16:24 Dose: 5 unit Mannitol (Mannitol 25% 12.5 Gm/50 Ml Vial) 12.5 gm IV EVERY HD PRN PRN Reason: Titrate to SBP (MUST DEFINE) Ondansetron HCl (Ondansetron 4 Mg/2 Ml Vial) 4 mg IV Q4H PRN PRN Reason: NAUSEA / VOMITING Last Admin: 12/16/22 14:17 Dose: 4 mg Sodium Chloride (Flush Normal Saline 10 Ml) 10 ml IV BID [facility] Last Admin: 12/16/22 07:37 Dose: 10 ml Zolpidem Tartrate (Zolpidem Tartrate 5 Mg Tablet) 5 mg PO BEDTIME PRN PRN PRN Reason: INSOMNIA Last Admin: 12/14/22 22:30 Dose: 5 mg Assessment/ Plan: Nephrology No dyspnea No chest pain Weakness and fatigue No acute events overnight Vitals, medications, blood work and imaging reviewed in the chart. General: In no apparent distress, Cooperative HEENT: Atraumatic Neck: Supple Cardiovascular: Regular rate/rhythm, Edema Gastrointestinal: No guarding, Distended/ Firm Musculoskeletal: No clubbing, No contractures Integumentary: No rashes, No cyanosis Neurological: Normal speech Laboratory Data (last 24 hrs) 12/08/22 09:55: WBC 8.10, Hgb 8.7 L, Hct 27.0 L, Plt Count 465 H 12/08/22 09:55: Sodium 134 L, Potassium 4.0, BUN 44 H, Creatinine 3.83 H, Glucose 161 H, Magnesium 1.7, Total Bilirubin 0.7, AST 37, ALT 15 L, Alkaline Phosphatase 66 Imagings Data: EXAM DESCRIPTION: CT - Chest Abd Pelvis Wo Con - 12/08/2022 10:37 am CLINICAL HISTORY: Chest and abdomen pain. AMS/weakness COMPARISON: Chest Abdomen Pelvis W Cont dated 09/18/2021 TECHNIQUE: Limited noncontrast study was performed. All CT scans are performed using dose optimization technique as appropriate and may include automated exposure control or mA/KV adjustment according to patient size. FINDINGS: No pulmonary nodule or mass is identified. Mild linear atelectasis is present in both lung bases.No pleural or pericardial effusion.No intrathoracic adenopathy. Abnormal diminished density masses are present in the inferior medial right lobe of the liver, largest measuring 4.5 cm. There is abnormal mass lesion involving the right kidney with direct extension into the right renal vein in the inferior vena cava noted. Mild ascites is present. A bowel obstruction is not present. Poorly defined omental areas of soft tissue prominence seen, difficult to discern due to lack of contrast in the GI tract. No lytic or blastic bone lesion. IMPRESSION: Right renal malignancy is again seen with direct extension into the right renal vein and inferior vena cava. Right hepatic lobe lesions are likely metastatic in origin although incompletely assessed due to lack contrast. Mild ascites is noted. No free air, abscess or evidence of significant bowel obstruction. EXAM DESCRIPTION: RAD - Chest Single View - 12/08/2022 9:51 am CLINICAL HISTORY: AMS Chest pain. COMPARISON: Chest Single View dated 07/08/2018; Chest Single View dated 07/08/2018; Chest Single View dated 07/07/2018; Chest Single View dated 12/22/2017 FINDINGS: Portable technique limits examination quality. The lungs are underinflated but grossly clear. The heart is normal in size. No displaced fractures. IMPRESSION: Underinflated lungs resulting in vascular crowding. Conclusions/Impression: Stage III LO may be multi-factorial including hypotension possibly complicated by ATN, malignant infiltration, cabozantinib Proteinuria? -No NSAIDs -Continue [place] -HBV panel negative Hyponatremia -Fluid restriction NAG Metabolic Acidosis -Bicarb prn Hyperuricemia HTN complicated by hypotension -Hold Lisinopril and Amlodipine DM II with CKD -RISS Moderate Malnutrition/ Hypoalbuminemia Debility/ Weakness -NPO at this time -Consider PT Anemia in chronic illness Iron Deficiency 8% -Monitor H&H -Consider IV iron Diffuse Adynamic Ileus Abd Distention -Agree with NGT/ Intermittent Suction -NPO Right RCC with liver mets Liver ascites -Hold cabozantinib at this time Case reviewed with the patient and the daughter Agree with the plan for hospice
[2022-12-17 05:33] LABS: Protime INR 1.09
[2022-12-17] MEDS: INSULIN -REGULAR HUMAN 50 UNIT/0.5 ML ML SQ SCH ×3 (07:30→16:14)
--- NOTE | 2022-12-17 08:23 | P.DS ---
Admission Date: 12/08/22 Discharge Date: 12/17/22 Primary Care Provider: Dr. Bolaños Disposition: HOSPICE-HOME Discharge Condition: FAIR Reason for Admission: abdominal distention, metastatic renal cell carcinoma, ileus - Problems (1) Renal cell carcinoma Current Visit: No Status: Acute Qualifiers: Laterality: right Qualified Code(s): C64.1 - Malignant neoplasm of right kidney, except renal pelvis (2) Acute renal failure Current Visit: Yes Status: Acute Qualifiers: Acute renal failure type: unspecified Qualified Code(s): N17.9 - Acute kidney failure, unspecified (3) End of life care Current Visit: Yes Status: Acute (4) Diabetes Onset Date: 12/23/17 Current Visit: No Status: Chronic Qualifiers: Diabetes mellitus type: type 2 Diabetes mellitus [employer] insulin use: without mcc use Diabetes mellitus complication status: without complication Qualified Code(s): E11.9 - Type 2 diabetes mellitus without complications (5) HTN (hypertension) Onset Date: 12/23/17 Current Visit: No Status: Chronic Qualifiers: Hypertension type: primary hypertension Qualified Code(s): I10 - Essential (primary) hypertension Brief History of Present Illness: Patient of mine with a history of diabetes and renal cell cancer. He has been feeling weak for the last few weeks. Came to the ER Was found to have extens ion into his cancer and a very elevated creatine of 3.8. His creatine this past May. was 1.09. The patient seems to not be eating well. Which can be sign of renal dysfunction. Will admit him and see if we can get records from his oncologist. Hospital Course: Patient came in with elevated creatine. He had worsening of his renal function. He developed and Illeus and ct scan showed omental thickening and ascitis. Most likely metastatic. His renal function failed. The patient wanted dialysis. Which may have brought him a few more weeks. Unfortunately he was so weak. Anestheriology stated he would need to be intubated and most likely would not make it off the ventilator. This was relayed to him surgery was cancelled and hospice was consulted. He wishes to go home with hospice. Thank you for allowing me to take part in his care. Vital Signs/Physical Exam: Temp Pulse Resp BP Pulse Ox 97.6 F 122 H 18 109/56 L 96 12/17/22 08:00 12/17/22 08:00 12/17/22 08:00 12/17/22 08:00 12/17/22 08:00 General: Oriented x2, Moderate distress HEENT: Atraumatic, PERRLA, EOMI Neck: Supple, JVD not distended Respiratory: Clear to auscultation bilaterally, Normal air movement Cardiovascular: Regular rate/rhythm, Normal S1 S2 Gastrointestinal: Normal bowel sounds, No tenderness Musculoskeletal: No tenderness Integumentary: No rashes Neurological: Normal speech, Normal tone, Normal affect Lymphatics: No axilla or inguinal lymphadenopathy Laboratory Data at Discharge: WBC 16.40 thou/uL (4.3-10.9) H 12/16/22 08:38 Hgb 7.7 g/dL (13.6-17.9) L D 12/16/22 08:38 Hct 23.8 % (39.6-49.0) L 12/16/22 08:38 Plt Count 508 thou/uL (152-406) H 12/16/22 08:38 PT 12.0 SECONDS (9.5-12.5) 12/17/22 04:50 INR 1.09 12/17/22 04:50 APTT 28.3 SECONDS (24.3-36.9) 12/17/22 04:50 Sodium 133 mEq/L (136-145) L 12/15/22 06:10 Potassium 4.8 mEq/L (3.5-5.1) 12/15/22 06:10 BUN 104 mg/dL (7-18) H 12/15/22 06:10 Creatinine 5.67 mg/dL (0.70-1.30) H 12/15/22 06:10 Glucose 157 mg/dL (74-106) H 12/15/22 06:10 Uric Acid 13.0 mg/dL (3.5-7.2) H 12/12/22 04:14 Phosphorus 4.7 mg/dL (2.5-4.9) 12/15/22 06:10 Magnesium 1.6 mg/dL (1.6-2.4) 12/12/22 04:14 Total Bilirubin 0.9 mg/dL (0.2-1.0) 12/10/22 05:47 AST 27 U/L (15-37) 12/10/22 05:47 ALT 13 U/L (16-61) L 12/10/22 05:47 Alkaline Phosphatase 66 U/L (45-117) 12/10/22 05:47 Home Medications: lisinopriL [Prinivil*] 40 mg PO DAILY 11/03/16 Amlodipine Besylate 1 tab PO DAILY 07/07/18 Atorvastatin Calcium [Lipitor] 40 mg PO BEDTIME 07/07/18 Apixaban [Eliquis] 5 mg PO BID 09/16/21 Aspirin [Aspirin EC 81 MG] 81 mg PO DAILY 12/08/22 Gabapentin 200 mg PO TID 12/08/22 Metoclopramide HCl [Reglan] 10 mg PO TID 12/08/22 Montelukast [Singulair*] 10 mg PO DAILY 12/08/22 Sitagliptin Phosphate [Januvia] 50 mg PO DAILY 12/08/22 Followup: Serjio Bolaños MD [ACTIVE - CAN ADMIT] - Physician Review: Patient Assessed, Agree with Above Assessment and Plan Time spent managing pt's care (in minutes): 40
[2022-12-17] MEDS: FAMOTIDINE 20 MG/2 ML VIAL IV SCH (09:00)
[2022-12-17] MEDS: MEDIHONEY 44 ML TOPICAL TUBE TOP SCH (09:00)
[2022-12-17] MEDS: allopurinoL 100 MG TAB PO SCH (09:00)
[2022-12-17] MEDS: HYDROMORPHONE HCL 0.5 MG/0.5 ML INJ IV PRN (09:28)
[2022-12-17] MEDS: CEFTAZIDIME 1 GM in NA CHLORIDE 0.9% 50 ML IV SCH (13:00)
--- NOTE | 2022-12-17 13:04 | P.PN ---
Subjective Date of Service: 12/16/22 Primary Care Provider: Dr. Bolaños Chief Complaint: abdominal distention, metastatic renal cell carcinoma, ileus Subjective: New changes Physical Examination - Vital Signs Temperature: 97.6 F Blood Pressure: 109/56 Pulse: 122 Respirations: 18 Pulse Ox (%): 96 - Physical Exam General: Alert, Oriented x3 Gastrointestinal: No rebound, No guarding, Distended Integumentary: No rashes Assessment And Plan - Plan Pt scheduled for HD catherer afted exoplaining BAR by me , Dr swanson and DR kramer. In his final interview today with residential sales executive, he decided to cancel his surgery since theres a possibility of staying on mechanical ventilatoras explained by him by patient accounts clerk. Dr Swanson came immediately to patient bedside to make sure he understand the implication of his decision. Dr Swanson informed me patient seem to be capable to make that decision and we will respect that. Physician Review: Patient Assessed, Agree with Above Assessment and Plan
--- NOTE | 2022-12-17 14:13 | PN ---
Date of Progress Note: 12/17/2022 Today, his family and friends are at bedside. Mr. Hatfield is a patient with metastatic renal cell car cinoma. Unfortunately, yesterday he was in need of hemodialysis, but even though we have all plan, w e discussed that with the Renal Service and primary doctor pros and cons, but he still decided to go for hemodialysis until when he was in day surgery holding area. The attending anesthesiologist daily ssed with him once again the rules and engagement to have this and they believe that they cannot guar antee he is not going to be on a ventilator or that he is not going to just remain on the ventilator. When the patient heard that he once again decided to hold the procedure and discuss this with the [facility] doctor who kindly came down, Dr. Bolaños and discussed with him the pros and cons of this and th e chance of that happening. After the discussion, the person decided he does not want the hemodialys is catheters anymore, so the procedure was canceled. Today, he is awake and alert. Abdomen is soft and depressible with distended. He wants to go on hospice. He was advised the importance if he is g oing to be eating to take small bites and soft diet, otherwise he may develop a bowel obstruction liliana t will put him once again in the situation to decide mechanical ventilation or not, which is the best and there is anything else we can help with, we asked him to just call for us. PAULINO/MODL Voice ID: [id number] Report ID: [id number]
[2022-12-17 15:57] VITALS: BP 89/52; TEMP 97.5
[2022-12-17] MEDS ORDERED: AMINO ACIDS 5 %/DEXTROSE 20 % 2,000 ML, Lipids 20% 250 ML with MULTIVITAMINS INJ 10 ML IV SCH ×3 (17:00)
== END 2022-12-17 18:24 | disposition hospice, home (50) | DRG 683 ==
LOC: ER 09:33 → ERHOLD 11:46 → 4TH 12:31
PROVIDERS: ADMIT Internal Medicine; ATTEND Internal Medicine
PROC: 02HV33Z Insertion of Infusion Device into Superior Vena Cava, Percutaneous Approach (ICD-10-PCS; principal; 2022-12-14)
DX: N17.9 Acute kidney failure, unspecified (principal); C64.1 Malignant neoplasm of right kidney, except renal pelvis; C78.7 Secondary malignant neoplasm of liver and intrahepatic bile duct; I69.354 Hemiplegia and hemiparesis following cerebral infarction affecting left non-dominant side; E87.1 Hypo-osmolality and hyponatremia; E44.0 Moderate protein-calorie malnutrition; R18.8 Other ascites; E87.20 Acidosis, unspecified; K56.0 Paralytic ileus; I87.312 Chronic venous hypertension (idiopathic) with ulcer of left lower extremity; I12.9 Hypertensive chronic kidney disease with stage 1 through stage 4 chronic kidney disease, or unspecified chronic kidney disease; N18.9 Chronic kidney disease, unspecified; E11.22 Type 2 diabetes mellitus with diabetic chronic kidney disease; D63.1 Anemia in chronic kidney disease; D63.8 Anemia in other chronic diseases classified elsewhere; E86.0 Dehydration; E88.09 Other disorders of plasma-protein metabolism, not elsewhere classified; D50.9 Iron deficiency anemia, unspecified; E78.00 Pure hypercholesterolemia, unspecified; B96.20 Unspecified Escherichia coli [E. coli] as the cause of diseases classified elsewhere; Z51.5 Encounter for palliative care; Z90.5 Acquired absence of kidney; Z91.09 Other allergy status, other than to drugs and biological substances; Z68.33 Body mass index [BMI] 33.0-33.9, adult; Z79.82 Long term (current) use of aspirin; Z79.01 Long term (current) use of anticoagulants; Z79.899 Other long term (current) drug therapy
CPT/HCPCS: 36415; 36569; 71045; 71250; 74018; 74176; 76857; 80048; 80053; 80069; 80076; 80202; 81001; 82043; 82140; 82271; 82435; 82533; 82570; 82805; 82947; 83540; 83735; 83880; 83986; 84100; 84132; 84145; 84156; 84300; 84466; 84484; 84550; 85014; 85018; 85025; 85610; 85730; 86160; 86704; 86706; 86803; 86850; 86900; 86901; 86920; 87040; 87077; 87086; 87088; 87186; 87205; 87340; 93005; 96360; 96361; 99285; J0713; J1170; J1650; J1815; J1940; J2405; J3475; J7030; J7040; J7050; J7799; P9016; P9047